=== PATIENT | female | born 1950 | race Caucasian/White ===

== ENCOUNTER → 2017-12-08 | Outpatient (CLI) | payer OTHER ==
[~2017-12-08] MED LIST: ATEN50TA8 PO; BNC40 PO; CLX20 PO; CRS10 PO; OXYC-57 PO; TRAZ100T29 PO
== END | disposition home or self-care (01) ==
LOC: C.LABSPEC 12:45
PROVIDERS: ATTEND Family Medicine
DX: M10.9 Gout, unspecified (principal)

== ENCOUNTER → 2017-12-14 | Outpatient (CLI) | payer OTHER ==
[2017-12-14 13:23] LABS: BASO % 0.4 %; BASO ABS # 0.04 K/uL (0-0.2); EOS % 3.2 %; EOS ABS # 0.34 K/uL (0-0.5); HEMATOCRIT 38.4 % (37-47); HEMOGLOBIN 12.6 g/dL (12.0-16.0); IG# 0.05 K/uL (0.00-0.02); LYMPH % 29.4 %; LYMPH ABS # 3.12 K/uL (1.2-3.4); MEAN CELL VOLUME 99.5 fL (80-100); MEAN CORPUSCULAR HEMOGLOBIN 32.6 pg (25-34); MEAN CORPUSCULAR HGB CONC 32.8 g/dl (32-36); MEAN PLATELET VOLUME 11.9 fL (7.4-10.4); MONO % 10.9 %; MONO ABS # 1.16 K/uL (0.11-0.59); NEUT % 55.6 %; NEUT ABS # 5.91 K/uL (1.4-6.5); PLATELET COUNT 237 K/uL (130-400); RED CELL DISTRIBUTION WIDTH CV 13.4 % (11.5-14.5); RED CELL DISTRIBUTION WIDTH SD 48.1 fL (36.4-46.3); WHITE BLOOD COUNT 10.62 K/uL (4.8-10.8)
[2017-12-14 13:32] LABS: ALBUMIN 3.5 gm/dl (3.4-5.0); AST/SGOT 16 U/L (15-37); BLOOD UREA NITROGEN 43 mg/dl (7-18); CALCIUM 8.8 mg/dl (8.5-10.1); CARBON DIOXIDE 27 mmol/L (21-32); CHOLESTEROL 187 mg/dl (0-200); CREATININE 1.46 mg/dl (0.60-1.20); GLUCOSE 105 mg/dl (70-99); POTASSIUM 4.6 mmol/L (3.5-5.1); SODIUM 138 mmol/L (136-145)
[2017-12-14 13:37] LABS: ALKALINE PHOSPHATASE 73 U/L (45-117); ALT/SGPT 26 U/L (12-78); LDL CHOLESTEROL CALCULATED 112 mg/dl; TOTAL PROTEIN 7.1 gm/dl (6.4-8.2)
== END | disposition home or self-care (01) ==
LOC: C.LABSPEC 13:04
PROVIDERS: ATTEND Family Medicine
DX: E78.2 Mixed hyperlipidemia (principal); M25.561 Pain in right knee

== ENCOUNTER 2018-09-15 05:20 | Inpatient (IN) ==
--- NOTE | 2018-09-13 11:25 | Anesthesiology Consultation ---
Date of Service September 13, 2018 Assessment & Plan (1) Encounter for pre-operative examination: Chart Review Chart Review: Acceptable Risk for Surgery and Patient seen in Pre Admission Testing Teaching & Discussion Instructed NPO after midnight before surgery, except medications with 15 cc of water. Medication instructions provided according to the PAT guidelines. History Surgery Operation Date: 09/15/18 07:35 Proposed Procedures p Right Carotid Endarterectomy - Lenny Joya MD Height/Weight Height: 5 ft 5 in Weight: 78.471 kg Allergies Allergy/AdvReac Type Severity Reaction Status Date / Time oxycodone AdvReac Severe syncope, Verified 09/06/18 14:14 low bp nickel AdvReac rash and Verified 09/06/18 14:14 skin turns green Medications Home Medications Medication Instructions Recorded Confirmed Last Taken trazodone 100 mg PO HS #0 09/22/11 09/06/18 05/10/18 20:00 aspirin 81 mg PO QAM #0 03/30/18 09/06/18 07/01/18 citalopram 40 mg PO HS #0 03/30/18 09/06/18 05/10/18 20:00 olmesartan 40 mg PO QAM #0 03/30/18 09/06/18 07/01/18 amlodipine 5 mg PO QAM 09/06/18 09/06/18 Unknown atorvastatin [Lipitor] 40 mg PO PM 09/06/18 09/06/18 Unknown hydrochlorothiazide 25 mg PO DAILY PRN 09/06/18 09/06/18 Unknown pantoprazole 40 mg PO QAM 09/06/18 09/06/18 Unknown Past Medical History Medical History HTN (hypertension) (Chronic) Mesenteric artery stenosis Gout (Chronic) Depression (Chronic) Chronic back pain (Chronic) Hyperlipidemia (Inactive) Hypertension (Inactive) Carotid artery stenosis Diverticular disease Past Family History Family History Mother Family history of early CAD Past Surgical History Surgical History History of arthroplasty of right knee (Chronic) History of back surgery (Chronic) History of carpal tunnel surgery (Chronic) right H/O left cataract extraction (Chronic) 9/13/18-2mg IV versed given without issues History of endoscopic sinus surgery (Chronic) History of arthroscopy (Inactive) chencho knee History of bilateral tubal ligation (Inactive) History of colonoscopy (Inactive) w/ polypectomy Past Anesthesia History No Hx of Anesthesia Complications and No Family Hx of Anesthesia Complications 2011 lumbar discectomy and fusion, MAC 3, ETT 7.0 History of PONV No Motion Sickness Screening History of Motion Sickness: Yes Social History Smoking Status: Never smoker Do You Dip or Chew Tobacco: No Hx Alcohol Use: Yes Alcohol type: wine alcohol intake frequency: holidays/special occasions only Hx Substance Use: No substance use type: does not use Exercise / Class Metabolic Activity II 4-5 Yardwork/Stairs/Walk up hill (no CP or SOB with stairs) Review of Systems Pt denies any recent chest pain, shortness of breath, palpitations, cough, fever or URI. Physical Exam Vital Signs BP: 138/56 P: 61bpm SPO2: 94% RA T: 98.3 F R: 12 ENMT Mouth: + dentures (partial upper); no chipped teeth and no loose teeth Thyromental Distance: < 3.5 Finger Breadths (3) Mallampati Class: I Neck normal visual inspection and + limited neck extension (mildly) Respiratory normal respiratory effort Auscultation: lungs clear to auscultation bilaterally Cardiovascular Rate/Rhythm: regular rate and regular rhythm Heart Sounds: no murmur Vessels: + carotid bruit (Right side) Extremities: no edema Testing Electrocardiogram Date: 09/13/18 Findings: + NSR @ (63) Chest X-Ray Date: 07/01/18 Findings: + NAD Stress Test Date: 09/08/18 Type: DSE Resting EF: 65-69% The stress echo is negative for inducible ischemia. There is no EKG or echo evidence of ischemia. No chest pain is reported with this test. 99% of age- predicted maximal target heart rate was obtained. No significant arrhythmias were noted. Normal heart rate and blood pressure response to dobutamine infusion. Occasional PACs were noted during stress. Baseline echo showed mild GA, borderline LVH and normal left ventricular cavity size and EF. Other Testing Neck CTA 09/01/18 1. Multifocal severe stenoses (up to 80%) of the proximal right internal carotid artery due to calcified and noncalcified atherosclerotic plaque, as detailed above. 2. Moderate plaque within the left internal carotid artery without significant stenosis. 3. Dominant, patent left vertebral artery. Diminutive right vertebral artery likely on a congenital basis. Laboratory Results Laboratory Tests 09/13/18 09/13/18 09/13/18 11:16 11:16 11:16 WBC 6.70 Hgb 10.9 L Hct 33.9 L Plt Count 275 PT 10.7 INR 1.1 APTT 25.4 Sodium 138 Potassium 4.3 Chloride 105 Carbon Dioxide 27 BUN 33 H Creatinine 1.08 Glucose 87
[2018-09-15] MEDS ORDERED: LR 15ML/HR IV SCH ×2 (06:00)
[2018-09-15] MEDS ORDERED: CEFAZOLIN 1000MG 1,000 MG/7.5 ML SYR IV SCH (06:00)
--- NOTE | 2018-09-15 06:02 | History & Physical Report ---
Date of Service September 15, 2018 Assessment & Plan (1) Right-sided extracranial carotid artery stenosis: Patient is admitted for a right CEA. I have discussed the risks options and benefits of the procedure with the patient. The patient understands the risks options and benefits and agrees to the procedure. History of Present Illness Chief Complaint: Right carotid stenosis Primary Care Provider: Karl Howe Ms. Radha Hare, is a 67-year-old female who recently required evaluation at [facility] for severe vertigo symptoms. This occurred in mid- July and per her report included an MRI that did not show any evidence of a stroke, but a carotid duplex that was performed at that time showed a 70-99% stenosis of her left internal carotid and a critical stenosis on the right internal carotid artery. As previously stated, her primary symptoms consist of vertigo which does occur even when she is lying in bed, not necessarily with activity. She will occasionally get symptoms of dysphagia, but it sounds to be more consistent with a globus sensation as it is intermittent and resolves immediately rather than true dysphagia. She denies any symptoms of transient monocular blindness, unilateral weakness or numbness, or any dysarthria. The stenosis of her right carotid was confirmed by CTA. Allergies Allergy/AdvReac Type Severity Reaction Status Date / Time oxycodone AdvReac Severe syncope, Verified 09/15/18 05:43 low bp nickel AdvReac rash and Verified 09/15/18 05:43 skin turns green Home Medications Home Medications Medication Instructions Recorded Confirmed Type trazodone 100 mg PO HS #0 09/22/11 09/15/18 History aspirin 81 mg PO QAM #0 03/30/18 09/15/18 History citalopram 40 mg PO HS #0 03/30/18 09/15/18 History olmesartan 40 mg PO QAM #0 03/30/18 09/15/18 History amlodipine 5 mg PO QAM 09/06/18 09/15/18 History atorvastatin [Lipitor] 40 mg PO PM 09/06/18 09/15/18 History hydrochlorothiazide 25 mg PO DAILY PRN 09/06/18 09/15/18 History pantoprazole 40 mg PO QAM 09/06/18 09/15/18 History Past Med/Surg History Medical History HTN (hypertension) (Chronic) Mesenteric artery stenosis Gout (Chronic) Depression (Chronic) Chronic back pain (Chronic) Hyperlipidemia (Inactive) Hypertension (Inactive) Carotid artery stenosis Diverticular disease Neck pain Surgical History History of arthroplasty of right knee (Chronic) History of back surgery (Chronic) History of carpal tunnel surgery (Chronic) right H/O left cataract extraction (Chronic) 04/29/18-2mg IV versed given without issues History of endoscopic sinus surgery (Chronic) History of arthroscopy (Inactive) chencho knee History of bilateral tubal ligation (Inactive) History of colonoscopy (Inactive) w/ polypectomy Family History Mother Family history of early CAD Social History Current Living Situation: Spouse Other Information That Helps Us Care for You: No Feels Safe at Home: Yes Smoking Status: Never smoker Do You Dip or Chew Tobacco: No Hx Alcohol Use: Yes Alcohol type: wine Alcohol Intake Frequency: holidays/ special occasions only Hx Substance Use: No Beliefs That Will Affect Care: None Preferred Language: Mohawk Communication Ability: Effective Review of Systems All systems reviewed & are unremarkable except as noted in HPI & below Physical Exam 2 Vital Signs (Past 24 Hours): She is a healthy-appearing middle-aged female in no acute distress. Her right arm blood pressure is 170/52, and her left arm blood pressure is 160/60. Her sclerae are anicteric, and her mucous membranes are moist. Her neck is supple, with palpable carotid pulses bilaterally and bruit auscultated bilaterally, greater on the right side. Her heart is regular rate and rhythm with no murmurs appreciated. Her lungs are clear to auscultation bilaterally. Her abdomen is soft, nontender, and nondistended. Her extremities are warm, well perfused with 2+ radial and 1+ DP pulses bilaterally. She has no focal neurologic deficits currently.
[2018-09-15] MEDS ORDERED: CISATRACURIUM BESYLATE IV SOLN 2 MG/ML 10 ML VIAL IV ONE (06:36)
[2018-09-15] MEDS ORDERED: NITROGLYCERIN 5 MG/ML 10 ML VIAL ONE (06:37)
[2018-09-15] MEDS ORDERED: GELATIN SPONGE SZ 100 ONE (06:48)
[2018-09-15] MEDS ORDERED: CEFAZOLIN 250 MG/ML 1 GM VIAL ONE (06:48)
[2018-09-15] MEDS ORDERED: HEPARIN (PORCINE) 1000 UNIT/ML 10 ML (CATH LAB USE ONLY) ONE (06:48)
[2018-09-15] MEDS ORDERED: BUPIVACAINE/EPINEPHRINE 0.5% MPF 1:200,000 30 ML VIAL ONE (06:48)
[2018-09-15] MEDS ORDERED: THROMBIN FOR SOLN 20000 UNIT KIT ONE (06:49)
[2018-09-15] MEDS ORDERED: MIDAZOLAM HCL 1 MG/ML 2ML VIAL ONE (07:02)
[2018-09-15] MEDS ORDERED: fentaNYL citrate 100 MCG/2 ML VIAL ONE (07:02)
[2018-09-15] MEDS ORDERED: LIDOCAINE HCL 2% 2 ML VIAL/AMP(20MG/ML) INFIL ONE (07:02)
[2018-09-15] MEDS ORDERED: PROPOFOL IV EMULSION 10 MG/ML 20 ML VIAL IV ONE (07:02)
--- NOTE | 2018-09-15 07:11 | History & Physical Bridge Note ---
Date of Service September 15, 2018 History & Physical Bridge Note I have examined the patient, reviewed the History & Physical and in the interval since the performance of the History & Physical I have noted the following changes of clinical significance: no changes noted
[2018-09-15] MEDS ORDERED: PHENYLEPHRINE HCL 10 MG/ML VIAL ONE (09:06)
[2018-09-15] MEDS ORDERED: DEXAMETHASONE SOD INJ 4 MG/ML VIAL ONE (09:06)
[2018-09-15] MEDS ORDERED: ONDANSETRON INJ 2 MG/ML 2 ML VIAL ONE (09:06)
--- NOTE | 2018-09-15 09:49 | Post Operative Brief Note ---
Immediate Post Op Note v1 Date of Surgery September 15, 2018 Pre & Post Diagnosis Operation Date: 09/15/18 07:30 Pre-Op Diagnosis: Right Internal Carotid Artery Stenosis Post-Op Diagnosis: Right Internal Carotid Artery Stenosis Procedure Operation Date: 09/15/18 07:30 Actual Procedures p Right Carotid Endarterectomy(Right) - Lenny Joya MD Surgeon Lenny Joya MD Customer Development Manager Gunjan Zamorano MD L Minarchick,PAC Estimated Blood Loss 50 Findings Consistent with Post-Op Diagnosis Anesthesia Type General Complications none Disposition Accompanied Patient To Recovery: No Disposition: Recovery Room
[2018-09-15] MEDS: LIDOCAINE HCL 1% 20 ML VIAL ONE ×2 (10:06→12:35)
[2018-09-15] MEDS ORDERED: LABETALOL HCL IV 5 MG/ML 20ML IV ONE (10:44)
[2018-09-15] MEDS ORDERED: NALOXONE HCL 0.4 MG/1 ML VIAL/CARP IV PRN (11:06)
[2018-09-15] MEDS ORDERED: fentaNYL citrate 100 MCG/2 ML VIAL IV PRN (11:06)
[2018-09-15] MEDS ORDERED: FLUMAZENIL 0.1 MG/1 ML 10 ML VIAL IV PRN (11:06)
[2018-09-15] MEDS ORDERED: PROMETHAZINE HCL 12.5 MG in SODIUM CHLORIDE 0.9% 50 ML IV PRN (11:06)
[2018-09-15] MEDS ORDERED: ATROPINE SULFATE 0.1 MG/ML 10ML SYR IV PRN (11:06)
[2018-09-15] MEDS ORDERED: LABETALOL HCL IV 5 MG/ML 20ML IV PRN (11:06)
[2018-09-15] MEDS ORDERED: ePHEDrine sulfate 50 MG/ML AMP IV PRN (11:06)
[2018-09-15] MEDS ORDERED: ONDANSETRON INJ 2 MG/ML 2 ML VIAL IV PRN (11:06)
--- NOTE | 2018-09-15 11:09 | Anesthesiology Progress Note ---
Date of Service September 15, 2018 Anesthesia Post Procedure Vital Signs Vital Signs: Temp Pulse Pulse Resp BP Pulse Ox 09/15/18 11:05 36.4 C L 61 18 131/47 L 96 09/15/18 10:55 62 20 135/48 L 98 09/15/18 10:45 63 17 131/48 L 99 09/15/18 10:36 36.2 C L 63 23 137/45 L 95 09/15/18 05:59 37.0 C 73 18 165/53 H 96 Notes Mental Status: alert / awake / arousable Patient Amnestic to Procedure: Yes Nausea / Vomiting: adequately controlled Pain: adequately controlled Airway Patency, RR, SpO2: stable & adequate BP & HR: stable & adequate Hydration State: stable & adequate Anesthetic Complications: no major complications apparent Notes: patient is neurologically intact
[2018-09-15] MEDS ORDERED: hydroCHLOROthiazide 25 MG TAB PO PRN (11:57)
[2018-09-15] MEDS ORDERED: MoRPHine SULFATE 4 MG/ML 1 ML CARP\\VIAL IV PRN (11:57)
[2018-09-15] MEDS ORDERED: D5W AND 1/2NSS 1,000 ML IV SCH (12:20)
[2018-09-15] MEDS ORDERED: AMLODIPINE BESYLATE 5 MG TAB PO ONE (12:30)
[2018-09-15] MEDS ORDERED: MoRPHine SULFATE 4 MG/ML 1 ML CARP\\VIAL ONE (12:31)
[2018-09-15] MEDS ORDERED: MoRPHine SULFATE 2 MG/ML CARP IV STA (12:32)
--- NOTE | 2018-09-15 12:47 | Operative Report ---
Post Operative Report Pre & Post Diagnosis Operation Date: 09/15/18 07:30 Pre-Op Diagnosis: Right Internal Carotid Artery Stenosis Post-Op Diagnosis: Right Internal Carotid Artery Stenosis Procedure Operation Date: 09/15/18 07:30 Actual Procedures p Right Carotid Endarterectomy(Right) - Lenny Joya MD Surgeon Lenny Joya MD Snow Plow Operator Gunjan Zamorano MD L Minarchick,PAC Estimated Blood Loss 50 Findings Consistent with Post-Op Diagnosis Specimens Carotid plaque Anesthesia Type General Complications none Disposition Accompanied Patient To Recovery: No Disposition: Surgical ICU Indications 67-year-old female with previous symptoms of vertigo requiring admission to the hospital, found to have critical stenosis of the right internal carotid artery and 70-99% stenosis of the left internal carotid artery. She presented to the hospital for elective right carotid endarterectomy. Description of Procedure Patient was brought to the operating room and identified as Radha Hare. She was transferred to the operating table in the supine position. General anesthesia was induced and she was endotracheally intubated. A shoulder roll was placed in her neck was extended to the left. Her right neck was prepped with ChloraPrep and draped in the usual sterile fashion. An oblique incision was made along the anterior border of the sternocleidomastoid. The platysma was identified and similarly divided along the incision. At this point the facial vein was noted to be crossing the area of the carotid and was divided with 3-0 silk. The common carotid artery and bulb were identified and dissected out using Metzenbaum scissors. The external carotid was identified and doubly encircled with a vessel loop. Dissection was carried down proximally onto the common carotid artery as well as distally onto the internal carotid artery. Significant plaque was noted in the internal and common carotid arteries upon palpation, however a soft endpoint was noted distally in the internal carotid artery and no additional maneuvers to extend exposure were required. Both the vagus nerve and the hypoglossal nerves were identified and preserved. DeBakey clamps were then used to clamp the internal carotid artery at the distal most extent and the common carotid artery at the proximal most extent. A small arteriotomy was made in the anterior aspect of the common carotid artery with an 11 blade. This was extended proximally and distally with Rowe scissors. A shunt was then inserted proximally and held in place using a Ivan clamp with good black bleeding noted from the internal carotid. The remaining ends of the shunt was then inserted into common carotid artery and similarly held in place with a Ivan clamp. We then proceeded with endarterectomy using Kolby forceps and spatula to dissect within the medial layer pulling the plaque away from the artery. Rowe scissors were used to complete the endarterectomy more proximally. In the more distal aspect of the internal carotid artery the endarterectomy was completed carefully in order to minimize dissection flaps. A small dissection flap of intima was noted and was tacked down in 2 places with 7-0 Prolene. The remaining plaque was pulled out of the external carotid artery without issue. A bovine pericardial patch was then selected and trimmed to size. Patch angioplasty was then performed in a heel-to-toe fashion using running 6-0 Prolene sutures. When approximately 3-4 stitches remained, the shunt was removed and DeBakey clamps were used to exclude flow into the anastomosis after it was backbled sufficiently. The suture was tied and there was not any significant bleeding from the angioplasty site, but spray thrombin and thrombin soaked pads were temporarily placed in the wound to ensure hemostasis. A palpable pulse was noted in the distal ICA after the repair. After hemostasis was ensured, the platysma was closed with running 3-0 Vicryl suture and the skin was closed with running 4-0 Vicryl suture in a subcuticular fashion. Dermabond was applied to the wound. The patient tolerated the procedure well and was extubated without difficulty and moved both sides of her body at the end of the case to command. Tongue was midline at the end of the case. At the end of the case, all counts were correct. Dr. Joya was present and scrubbed for the entire procedure. I attest to the content of the Intraoperative Record and any orders documented therein. Any exceptions are noted below.
[2018-09-15] MEDS: HYDROCODONE/ACETAMOPHEN 5/325MG TAB PO PRN ×2 (14:38→20:19)
--- NOTE | 2018-09-15 14:44 | Critical Care Consultation ---
Date of Consultation September 15, 2018 Assessment & Plan (1) Right-sided extracranial carotid artery stenosis: 67-year-old female was admitted to the ICU on 15 September 2018 following her right internal carotid endarterectomy earlier this same date. 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 Recently evaluated for vertigo symptoms but denies any at present. PMH depression and prior back surgery. Is on Celexa and trazodone. Has hydrocodone and morphine, both as needed, for postop pain. Pulm: No known acute issues. CVS: S/p right internal carotid endarterectomy. Management per vascular surgery , see related notes. PMH HTN, HLD, CAD. Is on Lipitor, aspirin, Norvasc, olmesartan. ID: Pre-op normal WBC. Presently afebrile. On perioperative Ancef. Endo: No known diabetes or thyroid issues. Renal/Lytes: Pre-op Cr 1.08, normal electrolytes. GI: No current symptoms or acute concerns. Reported occasional dysphasia symptoms. Is on Protonix. PMH diverticular disease. Heart healthy diet. Heme: Pre-op Hb 10.9. Monitoring. DVT prophy: Activity ad gabrielle. Lines: PIV. Code status: Full code PT/OT: Deferred. Disposition: Admitted to ICU in the postoperative period. (2) Insomnia: (3) Depression: (4) History of back surgery: (5) HTN (hypertension): (6) Hyperlipidemia: (7) Coronary artery disease: (8) Diverticular disease: (9) Anemia: Supervising Physician Co-Signing Physician Notes Dr. Castrejon was resident physician during care of patient. I separately evaluated patient for yarbrough portions of the history and the exam. I was present during the critical portion of medical decision making, and I discussed the case with the resident. I generally agree with the findings and plan. Patient tolerating p.o. and is asymptomatic at this time anticipate routine postoperative course History of Present Illness Attending Physician: Lenny Joya MD History of Present Illness 67-year-old female was admitted to the ICU following her right internal carotid endarterectomy earlier this morning. Patient states her carotid stenosis was discovered as part of an ongoing evaluation for vertigo and then follow on MRI. Upon meeting the patient in the ICU postop, she says that she has some right neck discomfort that has responded well to morphine thus far. She denies any present vertiginous symptoms. She notes some recent right lower quadrant abdominal symptoms, possibly related to diverticular disease, that is presently resolved as well. Denies any acute difficulty speaking, swallowing, or noted severe pain with moving her neck. She has no particular acute concerns. Allergies Allergy/AdvReac Type Severity Reaction Status Date / Time oxycodone AdvReac Severe syncope, Verified 09/15/18 05:43 low bp nickel AdvReac rash and Verified 09/15/18 05:43 skin turns green Home Medications Home Medications Medication Instructions Recorded Confirmed Type trazodone 100 mg PO HS #0 09/22/11 09/15/18 History aspirin 81 mg PO QAM #0 03/30/18 09/15/18 History citalopram 40 mg PO HS #0 03/30/18 09/15/18 History olmesartan 40 mg PO QAM #0 03/30/18 09/15/18 History amlodipine 5 mg PO QAM 09/06/18 09/15/18 History atorvastatin [Lipitor] 40 mg PO PM 09/06/18 09/15/18 History hydrochlorothiazide 25 mg PO DAILY PRN 09/06/18 09/15/18 History pantoprazole 40 mg PO QAM 09/06/18 09/15/18 History Patient History Medical History HTN (hypertension) (Chronic) Mesenteric artery stenosis Gout (Chronic) Depression (Chronic) Chronic back pain (Chronic) Hyperlipidemia (Inactive) Hypertension (Inactive) Carotid artery stenosis Diverticular disease Neck pain Surgical History History of arthroplasty of right knee (Chronic) History of back surgery (Chronic) History of carpal tunnel surgery (Chronic) right H/O left cataract extraction (Chronic) 04/29/18-2mg IV versed given without issues History of endoscopic sinus surgery (Chronic) History of arthroscopy (Inactive) chencho knee History of bilateral tubal ligation (Inactive) History of colonoscopy (Inactive) w/ polypectomy Family History Mother Family history of early CAD Social History Current Living Situation: Spouse Other Information That Helps Us Care for You: No Feels Safe at Home: Yes Smoking Status: Never smoker Do You Dip or Chew Tobacco: No Hx Alcohol Use: Yes Alcohol type: wine Alcohol Intake Frequency: holidays/ special occasions only Hx Substance Use: No Beliefs That Will Affect Care: None Preferred Language: Surinamese Communication Ability: Effective Review of Systems Constitutional: Denies fevers, chills, focal weakness Eyes: Denies any visual loss or diplopia ENT: Denies any ear/nose/throat pain or difficulty speaking or swallowing Respiratory: Denies any dyspnea, cough, hemoptysis Cardiovascular: Denies any chest pain or feeling of edema Gastrointestinal: Denies any abdominal pain, nausea/vomiting/diarrhea Musculoskeletal: Denies any acute extremity pains, myalgias, or focal weakness Skin: Denies any known acute rashes or lesions Neuro: Denies any headache, acute focal weakness or numbness, or difficulties with speech or swallow. Psych: Denies any recent depression or anxiety Physical Exam 2 Vital Signs (Past 24 Hours): Last Vital Signs Temp 36.4 C L 09/15/18 11:05 Pulse 64 09/15/18 14:20 Resp 14 09/15/18 14:20 BP 145/47 H 09/15/18 14:16 Pulse Ox 96 09/15/18 14:20 Physical Exam: General Appearance: Awake, alert & oriented, comfortable in general, NAD. CV: +S1S2 RRR, no murmur. Right neck has some mild swelling along the incision line. Pulm: Clear to auscultation throughout. Abdomen: +BS, soft, non-tender, non-distended. Extremities: No pedal edema or calf tenderness. Moving all extremities naturally and easily. Neuro: No gross neuro deficits. Results & Data Laboratory Results 09/15/18 09/15/18 Range/Units 13:22 05:51 POC Glucose 141 H (70-99) Blood Type A Positive Antibody Screen NEGATIVE Medications Administered Current Inpatient Medications Hydrocodone Bitart/Acetaminophen ([place] 5/325) 1 - 2 tab PO Q4H PRN PRN Reason: Moderate Pain Stop: 09/29/18 11:56 Last Admin: 09/15/18 14:38 Dose: 1 tab Amlodipine Besylate (Norvasc) 5 mg PO QAM [facility] Stop: 10/16/18 08:59 Aspirin (Ecotrin Ectab) 81 mg PO QAM [facility] Stop: 10/16/18 08:59 Atorvastatin Calcium (Lipitor) 40 mg PO PM [facility] Stop: 10/15/18 20:59 Citalopram Hydrobromide (Celexa) 40 mg PO HS [facility] Stop: 10/15/18 20:59 Hydrochlorothiazide (Hctz) 25 mg PO DAILY PRN PRN Reason: Hypertension Stop: 10/15/18 11:56 Cefazolin Sodium (Ancef 1000mg) 1,000 mg in 7.5 mls @ 2.5 mls/min IV PREOP [facility] ; Protocol Stop: 09/15/18 18:00 Last Admin: 09/15/18 07:35 Dose: 2.5 mls/min Lactated Ringer's (Lr) 1,000 mls @ 80 mls/hr IV .[id number] [facility] Stop: 09/15/18 18:29 Last Admin: 09/15/18 12:34 Dose: 80 mls/hr Cefazolin Sodium (Ancef 2000mg) 2,000 mg in 15 mls @ 3.75 mls/min IV Q8H [facility]; Protocol Stop: 09/16/18 00:03 Morphine Sulfate (Morphine Sulfate) 1 - 4 mg IV Q2H PRN PRN Reason: Severe Pain Stop: 09/29/18 11:56 Last Admin: 09/15/18 14:39 Dose: 2 mg Olmesartan (Benicar) 40 mg PO QAM [facility] Stop: 10/16/18 08:59 Pantoprazole Sodium (Protonix) 40 mg PO QAM [facility] Stop: 10/16/18 08:59 Trazodone HCl (Desyrel) 100 mg PO [facility] Stop: 10/15/18 20:59 Resident Activity Tracking Resident Involvement: Resident Care Provided Care Provided: [facility] Medicine _ (1) HTN (hypertension) Hypertension type: unspecified Qualified Code(s): I10 - Essential (primary) hypertension
[2018-09-15] MEDS: CEFAZOLIN 2000MG 2,000 MG/15 ML SYR IV SCH ×2 (17:11→23:55)
[2018-09-15] MEDS ORDERED: ATORVASTATIN 40 MG TAB PO SCH (21:00)
[2018-09-15] MEDS ORDERED: TRAZODONE HCL 100 MG TAB PO SCH (21:00)
[2018-09-15] MEDS ORDERED: CITALOPRAM 40 MG TAB PO SCH (21:00)
[2018-09-16 04:46] LABS: Hematocrit (blood only) 29.5 % (37-47); Hemoglobin 9.5 g/dL (12.0-16.0); Immature Granulocytes # (auto) 0.03 K/uL (0.00-0.02); Immature Granulocytes % (auto) 0.3 %; Lymphocytes # (auto) 0.87 K/uL (1.2-3.4); Lymphocytes % (auto) 8.5 %; Mean Corpuscular Hgb Conc 32.2 g/dL (32-36); Mean Corpuscular Volume 99.7 fL (80-100); Mean Platelet Volume 10.7 fL (7.4-10.4); Monocytes # (auto) 0.66 K/uL (0.11-0.59); Monocytes % (auto) 6.5 %; Neutrophils # (auto) 8.66 K/uL (1.4-6.5); Neutrophils % (auto) 84.7 %; Platelet Count 239 K/uL (130-400); RDW Standard Deviation 50.6 fL (36.4-46.3); Red Blood Count 2.96 M/uL (4.2-5.4); White Blood Count 10.22 K/uL (4.8-10.8)
[2018-09-16 05:07] LABS: BUN Creatinine Ratio 23.3 (10-20); Calcium 8.6 mg/dl (8.5-10.1); Creatinine Clr Calc Pharmacy 55.2 ml/min; Est GFR (African American) 65.5; Est GFR (Non-African American) 56.5; Magnesium 2.2 mg/dl (1.8-2.4); Phosphorus 3.9 mg/dl (2.5-4.9); Potassium 4.5 mmol/L (3.5-5.1)
[2018-09-16] MEDS: HYDROCODONE/ACETAMOPHEN 5/325MG TAB PO PRN ×2 (07:37→12:35)
--- NOTE | 2018-09-16 08:27 | Critical Care Progress Note ---
Date of Service September 16, 2018 Assessment & Plan (1) Right-sided extracranial carotid artery stenosis: 67-year-old female was admitted to the ICU on 15 September 2018 following her right internal carotid endarterectomy earlier this same date. 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 Recently evaluated for vertigo symptoms but denies any at present. PMH depression, insomnia, and prior back surgery. Is on Celexa and trazodone. Has hydrocodone and morphine, both as needed, for postop pain ( minimal needed thus far). Pulm: No known acute issues. CVS: S/p right internal carotid endarterectomy. Management per vascular surgery , see related notes. PMH HTN, HLD, CAD. Is on Lipitor, aspirin, Norvasc, olmesartan. ID: Normal WBC. Presently afebrile. Endo: No known diabetes or thyroid issues. Renal/Lytes: Pre-op Cr 1.08, similar. Normal electrolytes. GI: No current symptoms or acute concerns. Reported occasional dysphasia symptoms. Is on Protonix. PMH diverticular disease. Heart healthy diet. Heme: Pre-op Hb 10.9, post-op 9.5. Monitoring. DVT prophy: Activity ad gabrielle. Lines: PIV. Code status: Full code PT/OT: Deferred. Disposition: Admitted to ICU in the postoperative period. Likely DC home today per vascular surgery. (2) Insomnia: (3) Depression: (4) History of back surgery: (5) HTN (hypertension): (6) Hyperlipidemia: (7) Coronary artery disease: (8) Diverticular disease: (9) Anemia: Supervising Physician Co-Signing Physician Notes Dr. Castrejon was resident physician during care of patient. I separately evaluated patient for yarbrough portions of the history and the exam. I was present during the critical portion of medical decision making, and I discussed the case with the resident. I generally agree with the findings and plan. Doing well postoperatively likely able to be discharged today disposition per vascular surgery. Subjective Found patient sitting up in bed, eating her breakfast. She says that the right side of her neck feels a little sore but otherwise she is doing quite well. She has no particular acute concerns. Physical Exam 2 Vital Signs (Past 24 Hours): Last Vital Signs Temp 36.4 C L 09/16/18 04:00 Pulse 64 09/16/18 06:00 Resp 14 09/16/18 06:00 BP 136/46 L 09/16/18 06:00 Pulse Ox 96 09/16/18 06:00 Physical Exam: General Appearance: Awake, alert & oriented, comfortable in general, NAD. CV: +S1S2 RRR, no murmur. Right neck has some mild swelling along the incision line, unchanged from yesterday. Pulm: Clear to auscultation throughout. Abdomen: +BS, soft, non-tender, non-distended. Extremities: No pedal edema or calf tenderness. Moving all extremities naturally and easily. Neuro: No gross neuro deficits. Results & Data Laboratory Results 09/16/18 09/16/18 09/16/18 Range/Units 04:21 03:59 03:59 WBC 10.22 (4.8-10.8) K/uL RBC 2.96 L (4.2-5.4) M/uL Hgb 9.5 L (12.0-16.0) g/dL Hct 29.5 L (37-47) % MCV 99.7 (80-100) fL MCH 32.1 (25-34) pg MCHC 32.2 (32-36) g/dL RDW Std Deviation 50.6 H (36.4-46.3) fL RDW Coeff of Geeta 14.0 (11.5-14.5) % Plt Count 239 (130-400) K/uL MPV 10.7 H (7.4-10.4) fL Immature Gran % (Auto) 0.3 % Neut % (Auto) 84.7 % Lymph % (Auto) 8.5 % Alpine % (Auto) 6.5 % Eos % (Auto) 0.0 % Baso % (Auto) 0.0 % Immature Gran # (Auto) 0.03 H (0.00-0.02) K/uL Neut # (Auto) 8.66 H (1.4-6.5) K/uL Lymph # (Auto) 0.87 L (1.2-3.4) K/uL Alpine # (Auto) 0.66 H (0.11-0.59) K/uL Eos # (Auto) 0.00 (0-0.5) K/uL Baso # (Auto) 0.00 (0-0.2) K/uL Sodium 138 (136-145) mmol/L Potassium 4.5 (3.5-5.1) mmol/L Chloride 106 (98-107) mmol/L Carbon Dioxide 27 (21-32) mmol/L Anion Gap 5.0 (3-11) BUN 24 H (7-18) mg/dl Creatinine 1.02 (0.6-1.2) mg/dl Est Cr Clr Drug Dosing 55.2 ml/min Est GFR ( Amer) 65.5 Est GFR (Non-Af Amer) 56.5 BUN/Creatinine Ratio 23.3 H (10-20) Glucose 119 H (70-99) mg/dl POC Glucose 133 H (70-99) Calcium 8.6 (8.5-10.1) mg/dl Phosphorus 3.9 (2.5-4.9) mg/dl Magnesium 2.2 (1.8-2.4) mg/dl Nasal Screen MRSA (PCR) (Negative) 09/15/18 09/15/18 09/15/18 Range/Units Unknown 18:04 13:22 WBC (4.8-10.8) K/uL RBC (4.2-5.4) M/uL Hgb (12.0-16.0) g/dL Hct (37-47) % MCV (80-100) fL MCH (25-34) pg MCHC (32-36) g/dL RDW Std Deviation (36.4-46.3) fL RDW Coeff of Geeta (11.5-14.5) % Plt Count (130-400) K/uL MPV (7.4-10.4) fL Immature Gran % (Auto) % Neut % (Auto) % Lymph % (Auto) % Alpine % (Auto) % Eos % (Auto) % Baso % (Auto) % Immature Gran # (Auto) (0.00-0.02) K/uL Neut # (Auto) (1.4-6.5) K/uL Lymph # (Auto) (1.2-3.4) K/uL Alpine # (Auto) (0.11-0.59) K/uL Eos # (Auto) (0-0.5) K/uL Baso # (Auto) (0-0.2) K/uL Sodium (136-145) mmol/L Potassium (3.5-5.1) mmol/L Chloride (98-107) mmol/L Carbon Dioxide (21-32) mmol/L Anion Gap (3-11) BUN (7-18) mg/dl Creatinine (0.6-1.2) mg/dl Est Cr Clr Drug Dosing ml/min Est GFR ( Amer) Est GFR (Non-Af Amer) BUN/Creatinine Ratio (10-20) Glucose (70-99) mg/dl POC Glucose 186 H 141 H (70-99) Calcium (8.5-10.1) mg/dl Phosphorus (2.5-4.9) mg/dl Magnesium (1.8-2.4) mg/dl Nasal Screen MRSA (PCR) Negative (Negative) Medications Administered Current Inpatient Medications Hydrocodone Bitart/Acetaminophen ([place] 5/325) 1 - 2 tab PO Q4H PRN PRN Reason: Moderate Pain Stop: 09/29/18 11:56 Last Admin: 09/16/18 07:37 Dose: 2 tab [facility] Stop: 10/16/18 08:59 Last Admin: 09/16/18 07:37 Dose: 5 mg Aspirin (Ecotrin Ectab) [facility] Stop: 10/16/18 08:59 Last Admin: 09/16/18 07:30 Dose: 81 mg Atorvastatin Calcium (Lipitor) 40 mg PO PM [facility] Stop: 10/15/18 20:59 Last Admin: 09/15/18 20:19 Dose: 40 mg Citalopram Hydrobromide (Celexa) 40 mg PO HS [facility] Stop: 10/15/18 20:59 Last Admin: 09/15/18 20:19 Dose: 40 mg Hydrochlorothiazide (Hctz) 25 mg PO DAILY PRN PRN Reason: Hypertension Stop: 10/15/18 11:56 Morphine Sulfate (Morphine Sulfate) 1 - 4 mg IV Q2H PRN PRN Reason: Severe Pain Stop: 09/29/18 11:56 Last Admin: 09/15/18 14:39 Dose: 2 mg Olmesartan (Benicar) [facility] Stop: 10/16/18 08:59 Last Admin: 09/16/18 07:30 Dose: 40 mg Pantoprazole Sodium (Protonix) 40 mg PO QAM [facility] Stop: 10/16/18 08:59 Last Admin: 09/16/18 07:30 Dose: 40 mg Trazodone HCl (Desyrel) 100 mg PO HS [facility] Stop: 10/15/18 20:59 Last Admin: 09/15/18 20:19 Dose: 100 mg Resident Activity Tracking Resident Involvement: Resident Care Provided Care Provided: Adult [facility] Medicine _ (1) HTN (hypertension) Hypertension type: unspecified Qualified Code(s): I10 - Essential (primary) hypertension
[2018-09-16] MEDS ORDERED: PANTOprazole 40 MG TAB PO SCH (09:00)
[2018-09-16] MEDS ORDERED: OLMESARTAN MEDOXOMIL 40 MG TAB PO SCH (09:00)
[2018-09-16] MEDS ORDERED: ASPIRIN 81 MG ECTAB PO SCH (09:00)
[2018-09-16] MEDS ORDERED: AMLODIPINE BESYLATE 5 MG TAB PO SCH ×2 (09:00)
--- NOTE | 2018-09-16 09:09 | Anesthesiology Progress Note ---
Date of Service September 16, 2018 Anesthesia Post Procedure Vital Signs Vital Signs: Temp Pulse Pulse Resp BP BP Pulse Ox 09/16/18 08:00 36.9 C 70 21 129/42 L 95 09/16/18 07:00 66 15 131/59 L 94 09/16/18 06:00 64 14 136/46 L 96 09/16/18 05:00 65 16 122/45 L 94 09/16/18 04:00 36.4 C L 65 17 147/53 H 94 09/16/18 03:00 66 16 133/41 L 93 09/16/18 02:00 64 15 123/44 L 94 09/16/18 01:00 64 18 125/60 92 09/16/18 00:00 36.4 C L 69 69 18 149/53 H 95 09/15/18 23:00 68 20 124/42 L 93 09/15/18 22:00 62 18 130/41 L 95 09/15/18 21:00 65 23 132/45 L 94 09/15/18 20:00 36.8 C 65 20 140/62 95 09/15/18 18:50 68 18 93 09/15/18 18:45 81 17 129/42 L 91 09/15/18 18:40 63 15 96 09/15/18 18:30 70 22 129/43 L 91 09/15/18 18:20 67 18 92 09/15/18 18:15 68 18 123/45 L 91 09/15/18 18:10 67 17 93 09/15/18 18:00 69 21 132/41 L 93 09/15/18 17:50 66 18 96 09/15/18 17:45 82 20 127/44 L 92 09/15/18 17:40 70 23 97 09/15/18 17:30 69 19 127/39 L 95 09/15/18 17:20 73 22 91 09/15/18 17:16 76 18 135/40 L 89 L 09/15/18 17:10 92 H 18 84 L 09/15/18 17:00 78 19 134/42 L 89 L 09/15/18 16:50 74 15 95 09/15/18 16:46 78 21 123/38 L 88 L 09/15/18 16:40 77 22 95 09/15/18 16:32 74 20 98 09/15/18 16:31 72 20 124/48 L 94 09/15/18 16:30 68 21 09/15/18 16:20 62 15 97 09/15/18 16:15 76 20 131/46 L 90 09/15/18 16:10 69 22 94 09/15/18 16:00 81 21 127/47 L 90 09/15/18 15:53 66 18 135/47 L 95 09/15/18 15:50 71 17 93 09/15/18 15:46 67 14 135/47 L 92 09/15/18 15:40 64 18 97 09/15/18 15:31 73 18 139/40 L 94 09/15/18 15:30 73 20 92 09/15/18 15:20 69 21 95 09/15/18 15:16 70 19 127/45 L 94 09/15/18 15:10 73 18 92 09/15/18 15:01 67 16 128/46 L 97 09/15/18 15:00 76 16 94 09/15/18 14:50 65 19 96 09/15/18 14:46 71 27 H 130/65 98 09/15/18 14:40 69 21 97 09/15/18 14:31 68 14 134/67 94 09/15/18 14:30 67 20 97 09/15/18 14:20 64 14 96 09/15/18 14:16 72 14 145/47 H 94 09/15/18 14:10 74 15 94 09/15/18 14:02 78 17 136/43 L 95 09/15/18 14:00 73 22 94 09/15/18 13:50 74 18 95 09/15/18 13:46 69 14 152/48 H 96 09/15/18 13:40 75 20 97 09/15/18 13:31 73 16 139/50 L 95 09/15/18 13:30 76 16 99 09/15/18 13:20 67 18 95 09/15/18 13:16 64 18 145/52 H 99 09/15/18 13:10 68 16 97 09/15/18 13:02 68 26 H 99 09/15/18 13:01 67 25 H 140/54 L 97 09/15/18 13:00 67 22 99 09/15/18 12:46 62 24 132/49 L 99 09/15/18 12:45 71 19 98 09/15/18 12:31 67 19 141/49 H 96 09/15/18 12:30 71 19 98 09/15/18 12:17 67 23 139/56 L 98 09/15/18 12:15 70 17 97 09/15/18 12:04 64 22 93 09/15/18 12:01 65 14 132/47 L 96 09/15/18 11:15 59 L 18 139/47 L 99 09/15/18 11:05 36.4 C L 61 18 131/47 L 96 09/15/18 10:55 62 20 135/48 L 98 09/15/18 10:45 63 17 131/48 L 99 09/15/18 10:36 36.2 C L 63 23 137/45 L 95 Pain Intensity Right Neck: Pain Intensity: 6 Notes Mental Status: alert / awake / arousable and participated in evaluation Patient Amnestic to Procedure: Yes Nausea / Vomiting: see Notes below Pain: adequately controlled Airway Patency, RR, SpO2: stable & adequate BP & HR: stable & adequate Hydration State: stable & adequate Anesthetic Complications: no major complications apparent and Pt Satisfied with anesthetic care
--- NOTE | 2018-09-16 13:14 | Surgery Progress Note ---
Date of Service September 16, 2018 Assessment & Plan (1) Right-sided extracranial carotid artery stenosis: Patient is postoperative day 1 from a right carotid endarterectomy. She is doing well and will be discharged to home care today. Subjective Patient has no complaints other than some mild right-sided neck pain. Physical Exam 2 Vital Signs (Past 24 Hours): Last Vital Signs Temp 36.9 C 09/16/18 08:00 Pulse 67 09/16/18 12:00 Resp 19 09/16/18 12:00 BP 121/40 L 09/16/18 12:00 Pulse Ox 92 09/16/18 12:00 Patient is awake oriented x3 she is in no apparent distress. She has no neurological deficits. Her incision is dry and clean with minimal swelling. There is slight ecchymosis seen.
--- NOTE | 2018-09-24 11:08 | Discharge Summary ---
Date of Service September 24, 2018 Admission HPI Per Admitting Provider Ms. Radha Hare, is a 67-year-old female who recently required evaluation at [facility] for severe vertigo symptoms. This occurred in mid- July and per her report included an MRI that did not show any evidence of a stroke, but a carotid duplex that was performed at that time showed a 70-99% stenosis of her left internal carotid and a critical stenosis on the right internal carotid artery. As previously stated, her primary symptoms consist of vertigo which does occur even when she is lying in bed, not necessarily with activity. She will occasionally get symptoms of dysphagia, but it sounds to be more consistent with a globus sensation as it is intermittent and resolves immediately rather than true dysphagia. She denies any symptoms of transient monocular blindness, unilateral weakness or numbness, or any dysarthria. The stenosis of her right carotid was confirmed by CTA. Admission Exam Per Admitting Provider She is a healthy-appearing middle-aged female in no acute distress. Her right arm blood pressure is 170/52, and her left arm blood pressure is 160/60. Her sclerae are anicteric, and her mucous membranes are moist. Her neck is supple, with palpable carotid pulses bilaterally and bruit auscultated bilaterally, greater on the right side. Her heart is regular rate and rhythm with no murmurs appreciated. Her lungs are clear to auscultation bilaterally. Her abdomen is soft, nontender, and nondistended. Her extremities are warm, well perfused with 2+ radial and 1+ DP pulses bilaterally. She has no focal neurologic deficits currently. Principal Diagnosis 1. s/p Right Carotid Endarterectomy 2. Right Internal Carotid Artery Stenosis Discharge Exam Constitutional WD/WN, vitals as above healthy appearing, cooperative and comfortable; not in distress Eyes PERRL, conjunctivae normal, anicteric sclerae ENMT external ear and nose normal, oropharynx normal Neck trachea midline, no thyromegaly R neck incision C/D/I with dermabond visible. + tenderness, local edema, mild ecchymosis, with small hematoma noted. Respiratory normal respiratory effort, lungs clear to auscultation Cardiovascular RRR, no murmur, no edema Gastrointestinal (Abdomen) normal bowel sounds, soft, nontender, no hepatosplenomegaly Musculoskeletal no cyanosis or clubbing, extremities motor strength 5/5 Skin no rashes, warm and dry Neurologic awake; no focal motor deficits, not confused and not obtunded Speech / Cognition: no expressive aphasia and no receptive aphasia Motor/Sensory: no tremor, normal movement, no pronator drift and no sensory deficit Cranial Nerves: sense of smell intact, EOM intact bilaterally, normal facial strength, tongue midline and normal gag reflex Psychiatric A+Ox3, euthymic affect Apperance: appropriately dressed, appropriately groomed and appeared stated age Eye Contact: good eye contact Motor Behavior: steady gait and station Speech: normal rate/rhythm/volume of speech Affect: euthymic affect Thought Process: goal directed thought process, linear/logical thought process and clear/coherent thought process Cognition: recent memory grossly intact, remote memory grossly intact and attention grossly intact Discharge Data Allergies Allergy/AdvReac Type Severity Reaction Status Date / Time oxycodone AdvReac Severe syncope, Verified 09/15/18 05:43 low bp nickel AdvReac rash and Verified 09/15/18 05:43 skin turns green Consultations 09/15/18 06:07 Consult Signals Collector/Analyst Routine Procedures Performed Operation Date: 09/15/18 07:30 Actual Procedures p Right Carotid Endarterectomy(Right) - Lenny Joya MD Hospital Course (1) Right-sided extracranial carotid artery stenosis: Patient is postoperative day 1 from a right carotid endarterectomy. She is doing well and will be discharged to home care today. Total Time Total Time Spent Total Time Spent (In Minutes): 20 minutes Total Time Includes: Examination of the Patient, Discharge Planning and Medication Reconciliation Discharge Plan Discharge Items Patient Disposition: Home - Self-Care Reason For Visit: RIGHT CEA Discharge Diagnosis: Right internal carotid artery stenosis Discharge Goals: Therapeutic intervention Activity: Per 'Additional Instructions' section Bathing Comment: may shower starting tomorrow Non-emergency contact: Surgeon Call non-emergency contact if: you have any medication questions, your symptoms worsen, your pain is not controlled, your pain is worsening, your pain is unusual for you, your pain is concerning for you, your temperature is above 101.5, your wound has increased redness, your wound has increased drainage and your wound pain has increased Follow-up/Referrals: Karl Howe DO [Primary Care Provider] - Diet: Heart Healthy Addtl Provider Instructions: SPECIAL CARE INSTRUCTIONS: Medications: * Continue to take Aspirin as directed. Incision Care: * You may shower, but do not rub incision. You may let the warm soapy water run over it. Be sure to dry the incision well after bathing. * Do not shave directly over the incision until it is healed. * DO NOT IMMERSE THE INCISION IN A TUB/POOL/etc. UNTIL HEALED. Restrictions: * Do not drive for at least one week or if you are still taking any narcotic pain medication. * Do not lift anything heavier than a gallon of milk for one week after going home. Possible Complications: * Numbness - It is normal to have some numbness around the incision. Numbness can extend beyond the incision to areas of the neck, ear and face. The numbness is due to bruising of nerves during the surgery and will gradually improve over a period of months. * Hoarseness/Difficulty Speaking and Swallowing - The bruising of nerves in the neck can also cause a hoarse voice, difficulty speaking or swallowing. This may improve over time, HOWEVER, if it continues for more than a few days please contact our office ([phone]). * Excessive Swelling - There will be some swelling immediately after surgery which usually resolves within one week. If you notice that the swelling is getting worse, notify your surgeon ([phone]). * Drainage/Bleeding - If there is any drainage or bleeding, it should be a very small amount (less than a teaspoon per day). If you have excessive bleeding or drainage from the incision, call your surgeon ([phone]) right away. ACTIVATION OF EMERGENCY MEDICAL SYSTEM: Call 911, immediately, if you experience any of the following: Warning Signs and Symptoms of Stroke: * Sudden numbness or weakness of the face, arm or leg, especially on one side of the body * Sudden confusion, trouble speaking or understanding * Sudden trouble seeing in one or both eyes * Sudden trouble walking, dizziness, loss of balance or coordination * Sudden severe headache with no cause Do not delay calling 911 if you experience any warning signs or symptoms of a stroke. Delay in seeking medical attention may affect what treatments can be given to you. Risk Factors for Stroke: You can reduce your chances of stroke by working with your medical provider to adopt a healthy lifestyle. Some specific ways to lower your chance of stroke are: * If you are a smoker, now is the time to stop smoking cigarettes * If you are diabetic, improve the control of your blood sugars * Avoid excessive amounts of alcohol * Control high blood pressure * Lose weight if you are overweight * Be sure to lead an active lifestyle * Eat a healthy diet low in salt, cholesterol and fat You should know about other risk factors for stroke that you are unable to control. These include: * Age 55 years or older * Male gender * Certain racial groups: , or / * Family History of Stroke, Mini stroke or Heart Attack * Sickle Cell Disease You will be receiving a call from the Vascular Surgery Nurse after you are discharged. FOLLOW UP VISIT: It is important for you to keep your follow up appointments with your medical provider. Keep any scheduled doctor appointments. Prescriptions: New hydrocodone-acetaminophen [Thompson] 5-325 mg tablet 1 tab PO Q6H PRN (Reason: pain) Qty: 20 RF: 0 Continue trazodone 100 mg Tablet 100 mg PO HS Qty: 0 RF: 0 citalopram 40 mg Tablet 40 mg PO HS Qty: 0 RF: 0 aspirin 81 mg Tablet,Delayed Release (Dr/Ec) 81 mg PO QAM Qty: 0 RF: 0 olmesartan 40 mg Tablet 40 mg PO QAM Qty: 0 RF: 0 atorvastatin [Lipitor] 40 mg Tablet 40 mg PO PM RF: 0 amlodipine 5 mg Tablet 5 mg PO QAM RF: 0 pantoprazole 40 mg Tablet,Delayed Release (Dr/Ec) 40 mg PO QAM RF: 0 hydrochlorothiazide 25 mg Tablet 25 mg PO DAILY PRN (Reason: Hypertension) RF: 0 Stand-Alone Forms: [facility]/Other Patient Handouts: Endarterectomy Carotid Dc, Incision Care Dc Discharge Orders: Discharge Order (Routine); Ordered 09/16/18 Ordered By: Lenny Joya Admission Data Admit Date/Time: 09/15/18 06:07 Attending Provider: Lenny Joya Admit Provider: Lenny Joya Primary Care Provider: Karl Howe Other Providers: Modesto Hanson Service: Intensive Care Unit Other Interventions: Discharge Summary Assessment (RN) Last Done: 09/16/18 13:25 DC Date/Time DO NOT enter until pt leaves facility: 09/16/18 15:05
== END 2018-09-16 15:05 | disposition home or self-care (01) | DRG 39 ==
LOC: ASU 05:20 → 1E 06:07

== ENCOUNTER 2018-10-04 05:46 | Inpatient (IN) ==
--- NOTE | 2018-09-10 15:15 | PAT Medication Instructions ---
Medication Instructions Date of Service September 10, 2018 Home Medications trazodone 100 mg PO HS aspirin 81 mg PO QAM citalopram 40 mg PO HS olmesartan 40 mg PO QAM amlodipine 5 mg PO QAM atorvastatin [Lipitor] 40 mg PO PM hydrochlorothiazide 25 mg PO DAILY PRN pantoprazole 40 mg PO QAM ASK your surgeon for instructions aspirin 81 mg PO QAM DO NOT take the morning of surgery hydrochlorothiazide 25 mg PO DAILY PRN olmesartan 40 mg PO QAM Take morning of surgery With a small sip of water, OTHERWISE NOTHING TO EAT OR DRINK AFTER MIDNIGHT: amlodipine 5 mg PO QAM pantoprazole 40 mg PO QAM Take evening before surgery trazodone 100 mg PO HS citalopram 40 mg PO HS atorvastatin [Lipitor] 40 mg PO PM hydrochlorothiazide 25 mg PO DAILY PRN Other Notes If you have any questions please call us at [phone] or [phone] or [phone] or [phone]
--- NOTE | 2018-09-13 11:01 | Anesthesiology Consultation ---
Date of Service September 13, 2018 Assessment & Plan (1) Encounter for pre-operative examination: Plan: Patient having R carotid endarterectomy with Dr. Joya 09/15/18. Dr. Gibson aware. Chart Review Chart Review: Acceptable Risk for Surgery and Patient seen in Pre Admission Testing Teaching & Discussion Instructed NPO after midnight before surgery, except medications with 15 cc of water. Medication instructions provided according to the PAT guidelines. History Surgery Operation Date: 10/04/18 12:25 Proposed Procedures p C3-C4 Anterior Cervical Discectomy and Fusion - Bernabe Gibson, Height/Weight Height: 5 ft 5 in Weight: 80.6 kg Allergies Allergy/AdvReac Type Severity Reaction Status Date / Time oxycodone AdvReac Severe syncope, Verified 09/06/18 14:14 low bp nickel AdvReac rash and Verified 09/06/18 14:14 skin turns green Medications Home Medications Medication Instructions Recorded Confirmed Last Taken trazodone 100 mg PO HS #0 09/22/11 09/06/18 05/10/18 20:00 aspirin 81 mg PO QAM #0 03/30/18 09/06/18 07/01/18 citalopram 40 mg PO HS #0 03/30/18 09/06/18 05/10/18 20:00 olmesartan 40 mg PO QAM #0 03/30/18 09/06/18 07/01/18 amlodipine 5 mg PO QAM 09/06/18 09/06/18 Unknown atorvastatin [Lipitor] 40 mg PO PM 09/06/18 09/06/18 Unknown hydrochlorothiazide 25 mg PO DAILY PRN 09/06/18 09/06/18 Unknown pantoprazole 40 mg PO QAM 09/06/18 09/06/18 Unknown Past Medical History Medical History HTN (hypertension) (Chronic) Mesenteric artery stenosis Gout (Chronic) Depression (Chronic) Chronic back pain (Chronic) Hyperlipidemia (Inactive) Hypertension (Inactive) Carotid artery stenosis Diverticular disease Neck pain Past Family History Family History Mother Family history of early CAD Past Surgical History Surgical History History of arthroplasty of right knee (Chronic) History of back surgery (Chronic) History of carpal tunnel surgery (Chronic) right H/O left cataract extraction (Chronic) 04/29/18-2mg IV versed given without issues History of endoscopic sinus surgery (Chronic) History of arthroscopy (Inactive) chencho knee History of bilateral tubal ligation (Inactive) History of colonoscopy (Inactive) w/ polypectomy Past Anesthesia History No Hx of Anesthesia Complications and No Family Hx of Anesthesia Complications History of PONV No Motion Sickness Screening History of Motion Sickness: Yes STOP BANG Total 2 Social History Smoking Status: Never smoker Do You Dip or Chew Tobacco: No Hx Alcohol Use: Yes Alcohol type: wine alcohol intake frequency: holidays/special occasions only Hx Substance Use: No substance use type: does not use Exercise / Class Metabolic Activity II 4-5 Yardwork/Stairs/Walk up hill (no CP or SOB with stairs) Review of Systems Pt denies any recent chest pain, shortness of breath, palpitations, cough, fever or URI. Physical Exam Vital Signs BP: 138/56 P: 61bpm SPO2: 94% RA T: 98.3 F R: 12 ENMT Mouth: + dentures (partial upper); no chipped teeth and no loose teeth Thyromental Distance: < 3.5 Finger Breadths (3) Mallampati Class: I Neck normal visual inspection and + limited neck extension (mildly) Respiratory normal respiratory effort Auscultation: lungs clear to auscultation bilaterally Cardiovascular Rate/Rhythm: regular rate and regular rhythm Heart Sounds: no murmur Vessels: + carotid bruit (Right side) Extremities: no edema Testing Electrocardiogram Date: 09/13/18 Findings: + NSR @ (63) Chest X-Ray Date: 07/01/18 Findings: + NAD Stress Test Date: 09/08/18 Type: DSE Resting EF: 65-69% The stress echo is negative for inducible ischemia. There is no EKG or echo evidence of ischemia. No chest pain is reported with this test. 99% of age- predicted maximal target heart rate was obtained. No significant arrhythmias were noted. Normal heart rate and blood pressure response to dobutamine infusion. Occasional PACs were noted during stress. Baseline echo showed mild NC, borderline LVH and normal left ventricular cavity size and EF. Other Testing Neck CTA 09/01/18 1. Multifocal severe stenoses (up to 80%) of the proximal right internal carotid artery due to calcified and noncalcified atherosclerotic plaque, as detailed above. 2. Moderate plaque within the left internal carotid artery without significant stenosis. 3. Dominant, patent left vertebral artery. Diminutive right vertebral artery likely on a congenital basis. Laboratory Results 09/13/18 11:16 09/13/18 11:16 Blood Type A Positive 09/13/18 11:16 Antibody Screen NEGATIVE 09/13/18 11:16 PT 10.7 Seconds (9.0-12.0) 09/13/18 11:16 INR 1.1 (0.9-1.1) 09/13/18 11:16 APTT 25.4 Seconds (21.0-31.0) 09/13/18 11:16 Urine Color Yellow 09/13/18 Unknown Urine Appearance Clear (Clear) 09/13/18 Unknown Urine pH 5.0 (4.5-7.5) 09/13/18 Unknown Ur Specific [place] 1.016 (1.000-1.030) 09/13/18 Unknown Urine Protein Negative (Negative) 09/13/18 Unknown Urine Glucose (UA) Negative (Negative) 09/13/18 Unknown Urine Ketones Negative (Negative) 09/13/18 Unknown Urine Nitrite Negative (Negative) 09/13/18 Unknown Ur Leukocyte Esterase Negative (Negative) 09/13/18 Unknown
[2018-09-13 12:25] LABS: Basophils # (auto) 0.04 K/uL (0-0.2); Basophils % (auto) 0.6 %; Hematocrit (blood only) 33.9 % (37-47); Hemoglobin 10.9 g/dL (12.0-16.0); Immature Granulocytes # (auto) 0.02 K/uL (0.00-0.02); Immature Granulocytes % (auto) 0.3 %; Lymphocytes # (auto) 2.09 K/uL (1.2-3.4); Lymphocytes % (auto) 31.2 %; Mean Corpuscular Hgb Conc 32.2 g/dL (32-36); Mean Corpuscular Volume 99.7 fL (80-100); Mean Platelet Volume 11.3 fL (7.4-10.4); Monocytes # (auto) 0.77 K/uL (0.11-0.59); Monocytes % (auto) 11.5 %; Neutrophils # (auto) 3.38 K/uL (1.4-6.5); Neutrophils % (auto) 50.4 %; Platelet Count 275 K/uL (130-400); RDW Coefficient of Variation 14.2 % (11.5-14.5); RDW Standard Deviation 51.4 fL (36.4-46.3)
[2018-09-13 12:34] LABS: BUN Creatinine Ratio 30.6 (10-20); Calcium 9.4 mg/dl (8.5-10.1); Creatinine Clr Calc Pharmacy 52.3 ml/min; Est GFR (African American) 61.1; Est GFR (Non-African American) 52.7; Potassium 4.3 mmol/L (3.5-5.1)
[2018-09-13 12:35] LABS: INR 1.1 (0.9-1.1); Partial Thromboplastin Time 25.4 Seconds (21.0-31.0); Prothrombin Time 10.7 Seconds (9.0-12.0)
[2018-09-13 12:52] LABS: Appearance Urine Clear (Clear); Bilirubin Urine Negative (Negative); Color Urine Yellow; Glucose Urine UA Negative (Negative); Ketones Urine Negative (Negative); Leukocyte Esterase Urine Negative (Negative); Nitrite Urine Negative (Negative); Protein Urine Negative (Negative); Specific Gravity Urine 1.016 (1.000-1.030); Urobilinogen Urine Negative (Negative)
[2018-10-04] MEDS ORDERED: CeleBREX 200 MG CAP PO SCH (06:00)
[2018-10-04] MEDS ORDERED: CEFAZOLIN 2000MG 2,000 MG/15 ML SYR IV SCH (06:00)
[2018-10-04] MEDS ORDERED: ACETAMINOPHEN 500 MG TAB PO SCH (06:00)
[2018-10-04] MEDS ORDERED: GABAPENTIN 300 MG PO SCH (06:00)
[2018-10-04] MEDS ORDERED: LR 15ML/HR IV SCH (06:00)
[2018-10-04] MEDS ORDERED: fentaNYL citrate 100 MCG/2 ML VIAL ONE ×3 (06:35→08:16)
[2018-10-04] MEDS ORDERED: HYDROmorphone INJ 2 MG/ML SYR/VIAL ONE ×2 (06:35)
[2018-10-04] MEDS ORDERED: ONDANSETRON INJ 2 MG/ML 2 ML VIAL ONE (06:36)
[2018-10-04] MEDS ORDERED: LIDOCAINE HCL 2% 2 ML VIAL/AMP(20MG/ML) INFIL ONE (06:36)
[2018-10-04] MEDS ORDERED: NEOSTIGMINE METHYLSULFATE 1 MG/ML 10ML VIAL ONE (06:36)
[2018-10-04] MEDS ORDERED: ROCURONIUM BROMIDE 10 MG/ML 5 ML VIAL ONE (06:36)
[2018-10-04] MEDS ORDERED: GLYCOPYRROLATE 0.2 MG/ML VIAL ONE (06:36)
[2018-10-04] MEDS ORDERED: PROPOFOL IV EMULSION 10 MG/ML 20 ML VIAL IV ONE (06:36)
[2018-10-04] MEDS ORDERED: DEXAMETHASONE SOD INJ 4 MG/ML VIAL ONE (06:36)
[2018-10-04] MEDS ORDERED: BACITRACIN INJ 50,000 UNIT VIAL ONE (06:54)
--- NOTE | 2018-10-04 07:04 | Anesthesiology Consultation ---
Date of Service October 04, 2018 The patient had a R CEA on 09/15/18 which she tolerated well. She was a Grade 2 view with a Mac 3 blade. Assessment & Plan (1) Encounter for pre-operative examination: Chart Review Chart Review: Acceptable Risk for Surgery and Patient NOT seen in Pre Admission Testing Consults Requested none ASA ASA3 Proposed Anesthesia Anesthesia Type: General Anesthesia Line Insertion: Arterial line Risk / Benefits Reviewed With: PT / POA / Parent / Guardian, Accepts Plan and Informed Consent Obtained NPO Date Last Intake of Fluids: 10/04/18 Time Last Intake of Fluids: 03:00 Last Intake of Fluids Comment: sip of water with pills Date Last Intake of Solids: 10/03/18 Time Last Intake of Solids: 20:00 History Surgery Operation Date: 10/04/18 07:45 Proposed Procedures p C3-C4 Anterior Cervical Discectomy and Fusion - Bernabe Gibson, Height/Weight Height: 5 ft 5 in Weight: 82.157 kg Allergies Allergy/AdvReac Type Severity Reaction Status Date / Time oxycodone AdvReac Severe syncope, Verified 09/15/18 05:43 low bp nickel AdvReac rash and Verified 10/04/18 06:03 skin turns green Medications Home Medications Medication Instructions Recorded Confirmed Last Taken trazodone 100 mg PO HS #0 09/22/11 10/04/18 10/03/18 20:00 aspirin 81 mg PO QAM #0 03/30/18 10/04/18 10/03/18 09:00 citalopram 40 mg PO HS #0 03/30/18 10/04/18 10/03/18 20:00 olmesartan 40 mg PO QAM #0 03/30/18 10/04/18 10/04/18 03:00 amlodipine 5 mg PO QAM 09/06/18 10/04/18 10/03/18 09:00 atorvastatin [Lipitor] 40 mg PO PM 09/06/18 10/04/18 10/03/18 20:00 hydrochlorothiazide 25 mg PO DAILY PRN 09/06/18 10/04/18 10/03/18 09:00 pantoprazole 40 mg PO QAM 09/06/18 10/04/18 10/04/18 03:00 Active Medications Generic Name Dose Route Start Last Admin Trade Name Freq PRN Reason Stop Dose Admin Acetaminophen 1,000 mg 02/18/19 06:00 10/04/18 06:18 Tylenol PO 10/04/18 18:00 1,000 mg PREOP JUDITH Administration Celecoxib 200 mg 10/04/18 06:00 10/04/18 06:18 Celebrex PO 10/04/18 18:00 200 mg PREOP JUDITH Administration Gabapentin 300 mg 10/04/18 06:00 10/04/18 06:18 Neurontin PO 10/04/18 18:00 300 mg PREOP JUDITH Administration Lactated Ringer's 1,000 mls @ 15 mls/hr 10/04/18 06:00 10/04/18 06:29 Lr IV 10/05/18 05:59 15 mls/hr .Q24H JUDITH Administration Past Medical History Medical History HTN (hypertension) (Chronic) Mesenteric artery stenosis Gout (Chronic) Depression (Chronic) Chronic back pain (Chronic) Hyperlipidemia (Inactive) Hypertension (Inactive) Carotid artery stenosis Diverticular disease Neck pain Past Family History Family History Mother Family history of early CAD Past Surgical History Surgical History History of arthroplasty of right knee (Chronic) History of back surgery (Chronic) History of carpal tunnel surgery (Chronic) right History of CEA (carotid endarterectomy) H/O left cataract extraction (Chronic) 04/29/18-2mg IV versed given without issues History of endoscopic sinus surgery (Chronic) History of arthroscopy (Inactive) chencho knee History of bilateral tubal ligation (Inactive) History of colonoscopy (Inactive) w/ polypectomy Past Anesthesia History No Hx of Anesthesia Complications and No Family Hx of Anesthesia Complications History of PONV No Motion Sickness Screening History of Motion Sickness: No STOP BANG Total 2 Social History Smoking Status: Never smoker Do You Dip or Chew Tobacco: No Hx Alcohol Use: Yes Alcohol type: wine alcohol intake frequency: holidays/special occasions only Hx Substance Use: No substance use type: does not use Exercise / Class Metabolic Activity II 4-5 Yardwork/Stairs/Walk up hill Review of Systems no chest pain or sob Physical Exam Vital Signs Last Vital Signs Temp 37 C 10/04/18 06:07 Pulse 81 10/04/18 06:07 Resp 18 10/04/18 06:07 BP 141/87 H 10/04/18 06:07 Pulse Ox 95 10/04/18 06:07 Constitutional + obese ENMT Mouth: + dental restorations Thyromental Distance: > or= 3.5 Finger Breadths Mallampati Class: III Neck normal visual inspection Respiratory normal respiratory effort Cardiovascular Rate/Rhythm: regular rate and regular rhythm Musculoskeletal Spine: + limited cervical ROM and + pain with cervical ROM Neurologic moves all extremities Psychiatric Orientation: alert and oriented x 3 Testing Electrocardiogram Date: 09/13/18 Findings: + NSR @ (63) Chest X-Ray Date: 07/01/18 Findings: + NAD Stress Test Date: 09/08/18 Type: DSE Resting EF: 65-69% The stress echo is negative for inducible ischemia. There is no EKG or echo evidence of ischemia. No chest pain is reported with this test. 99% of age- predicted maximal target heart rate was obtained. No significant arrhythmias were noted. Normal heart rate and blood pressure response to dobutamine infusion. Occasional PACs were noted during stress. Baseline echo showed mild TN, borderline LVH and normal left ventricular cavity size and EF. Other Testing Neck CTA 09/01/18 1. Multifocal severe stenoses (up to 80%) of the proximal right internal carotid artery due to calcified and noncalcified atherosclerotic plaque, as detailed above. 2. Moderate plaque within the left internal carotid artery without significant stenosis. 3. Dominant, patent left vertebral artery. Diminutive right vertebral artery likely on a congenital basis. Laboratory Results 09/13/18 11:16 09/13/18 11:16 Blood Type A Positive 09/13/18 11:16 Antibody Screen NEGATIVE 09/13/18 11:16 PT 10.7 Seconds (9.0-12.0) 09/13/18 11:16 INR 1.1 (0.9-1.1) 09/13/18 11:16 APTT 25.4 Seconds (21.0-31.0) 09/13/18 11:16 Urine Color Yellow 09/13/18 Unknown Urine Appearance Clear (Clear) 09/13/18 Unknown Urine pH 5.0 (4.5-7.5) 09/13/18 Unknown Ur Specific [place] 1.016 (1.000-1.030) 09/13/18 Unknown Urine Protein Negative (Negative) 09/13/18 Unknown Urine Glucose (UA) Negative (Negative) 09/13/18 Unknown Urine Ketones Negative (Negative) 09/13/18 Unknown Urine Nitrite Negative (Negative) 09/13/18 Unknown Ur Leukocyte Esterase Negative (Negative) 09/13/18 Unknown
[2018-10-04] MEDS ORDERED: HYDROmorphone INJ 1 MG/ML SYRINGE IV PRN (07:19)
[2018-10-04] MEDS ORDERED: MEPERIDINE HCL 25 MG/ML CARP IV PRN (07:19)
[2018-10-04] MEDS ORDERED: PHENYLEPHRINE 100MCG/ML 5ML SYR IV PRN (07:19)
[2018-10-04] MEDS ORDERED: ATROPINE SULFATE 0.1 MG/ML 10ML SYR IV PRN (07:19)
[2018-10-04] MEDS ORDERED: fentaNYL citrate 100 MCG/2 ML VIAL IV PRN (07:19)
[2018-10-04] MEDS ORDERED: ONDANSETRON INJ 2 MG/ML 2 ML VIAL IV PRN ×2 (07:19→10:27)
[2018-10-04] MEDS ORDERED: ePHEDrine sulfate 50 MG/ML AMP IV PRN (07:19)
[2018-10-04] MEDS ORDERED: LABETALOL HCL IV 5 MG/ML 20ML IV PRN (07:19)
--- NOTE | 2018-10-04 07:29 | History & Physical Bridge Note ---
Date of Service October 04, 2018 History & Physical Bridge Note I have examined the patient, reviewed the History & Physical and in the interval since the performance of the History & Physical I have noted the following changes of clinical significance: no changes noted
--- NOTE | 2018-10-04 07:29 | History & Physical Report ---
Date of Service October 04, 2018 Assessment & Plan (1) Cervical stenosis of spinal canal: Anterior cervical discectomy and fusion C3-4 Present on Admission?: Yes History of Present Illness Chief Complaint: Neck and arm pain Primary Care Provider: Karl Howe This is a 67-year-old female who presents with chronic persistent neck and arm pain. After failing extensive course of nonoperative care is here for surgical intervention. Allergies Allergy/AdvReac Type Severity Reaction Status Date / Time oxycodone AdvReac Severe syncope, Verified 09/15/18 05:43 low bp nickel AdvReac rash and Verified 10/04/18 06:03 skin turns green Home Medications Home Medications Medication Instructions Recorded Confirmed Type trazodone 100 mg PO HS #0 09/22/11 10/04/18 History aspirin 81 mg PO QAM #0 03/30/18 10/04/18 History citalopram 40 mg PO HS #0 03/30/18 10/04/18 History olmesartan 40 mg PO QAM #0 03/30/18 10/04/18 History amlodipine 5 mg PO QAM 09/06/18 10/04/18 History atorvastatin [Lipitor] 40 mg PO PM 09/06/18 10/04/18 History hydrochlorothiazide 25 mg PO DAILY PRN 09/06/18 10/04/18 History pantoprazole 40 mg PO QAM 09/06/18 10/04/18 History Past Med/Surg History Medical History HTN (hypertension) (Chronic) Mesenteric artery stenosis Gout (Chronic) Depression (Chronic) Chronic back pain (Chronic) Hyperlipidemia (Inactive) Hypertension (Inactive) Carotid artery stenosis Diverticular disease Neck pain Surgical History History of arthroplasty of right knee (Chronic) History of back surgery (Chronic) History of carpal tunnel surgery (Chronic) right History of CEA (carotid endarterectomy) H/O left cataract extraction (Chronic) 04/29/18-2mg IV versed given without issues History of endoscopic sinus surgery (Chronic) History of arthroscopy (Inactive) chencho knee History of bilateral tubal ligation (Inactive) History of colonoscopy (Inactive) w/ polypectomy Family History Mother Family history of early CAD Social History Current Living Situation: Spouse Other Information That Helps Us Care for You: No Feels Safe at Home: Yes Safety Concerns: Feels Safe At This Time Smoking Status: Never smoker Do You Dip or Chew Tobacco: No Hx Alcohol Use: Yes Alcohol type: wine Alcohol Intake Frequency: holidays/ special occasions only Hx Substance Use: No Beliefs That Will Affect Care: None Preferred Language: Guamanian Physical Exam 2 Vital Signs (Past 24 Hours): Last Vital Signs Temp 37 C 10/04/18 06:07 Pulse 81 10/04/18 06:07 Resp 18 10/04/18 06:07 BP 141/87 H 10/04/18 06:07 Pulse Ox 95 10/04/18 06:07 Results & Data Medications Administered Acetaminophen (Tylenol) 1,000 mg PO PREOP JUDITH Stop: 10/04/18 18:00 Last Admin: 10/04/18 06:18 Dose: 1,000 mg Celecoxib (Celebrex) 200 mg PO PREOP JUDITH Stop: 10/04/18 18:00 Last Admin: 10/04/18 06:18 Dose: 200 mg Gabapentin (Neurontin) 300 mg PO PREOP JUDITH Stop: 10/04/18 18:00 Last Admin: 10/04/18 06:18 Dose: 300 mg Lactated Ringer's (Lr) 1,000 mls @ 15 mls/hr IV .Q24H JUDITH Stop: 10/05/18 05:59 Last Admin: 10/04/18 06:29 Dose: 15 mls/hr
[2018-10-04] MEDS ORDERED: MIDAZOLAM HCL 1 MG/ML 2ML VIAL ONE (07:36)
[2018-10-04] MEDS ORDERED: PHENYLEPHRINE 100MCG/ML 5ML SYR ONE (07:46)
[2018-10-04] MEDS ORDERED: FLOSEAL HEMOSTATIC MATRIX 10ML TOP ONE (08:14)
[2018-10-04] MEDS ORDERED: ePHEDrine sulfate 50 MG/ML SYR ONE (08:17)
[2018-10-04] MEDS ORDERED: ePHEDrine sulfate 50 MG/ML AMP ONE (08:17)
[2018-10-04] MEDS ORDERED: LARYING-O-JET KIT (LTA) ONE (08:32)
--- NOTE | 2018-10-04 08:48 | Operative Report ---
Post Operative Report Pre & Post Diagnosis Operation Date: 10/04/18 07:45 Pre-Op Diagnosis: Cervical spinal stenosis with bilateral radiculopathy Post-Op Diagnosis: Same Procedure Operation Date: 10/04/18 07:45 Actual Procedures #1 anterior cervical discectomy bilateral foraminotomies C3-4. #2 anterior cervical arthrodesis C3-4. #3 placement of cortical allograft filled with DBM 8 mm in height at C3-4. #4 placement of globus plate and screws across C3-4. Surgeon Bernabe Gibson, Senior Office Assistant Shanthi Ross Estimated Blood Loss 10 Findings Consistent with Post-Op Diagnosis Specimens None Description of Procedure Patient was met with preoperatively case discussed all questions addressed. After informed consent obtained patient was taken to the operative suite underwent intubation placed in a supine position on the Julio table with the head López head of merchandise buying. All bony prominences well-padded eyes inspected to ensure no external pressure placed upon. This point the anterior cervical spine was prepped and draped in a sterile fashion. The assistance of fluoroscopy identified the C3-4 disc space and a transverse incision was placed along the left anterior aspect of the cervical spine. Sharp dissection with the assistance of bipolar elective cautery was performed down to and exposing the anterior cervical spine at C3-4. I verified my position with fluoroscopy. Then performed a complete discectomy out to the uncovertebral joints bilaterally. [place] distracting pins were utilized to assist in visualization. Removed all posterior annular fibers and longitudinal ligament for complete decompression. Endplates were then burred to subcortical bleeding bone and 8 mm cortical allograft filled with DBM tamped in position. Distraction apparatus was removed with a globus plate and screws applied with the assistance of fluoroscopy. Incision was then copious irrigated explored to ensure no damage to surrounding structures remaining bleeding. 10 round MADONNA drain inserted. Incision was then closed with 2 Vicryl in a fashion of 4 Monocryl for final skin closure. Steri-Strip sterile dressings placed. Patient will continue to PACU stable disc. Please note Shanthi Ross present throughout the entire procedure involved in patient positioning complex portions of the surgery and final skin closure. I attest to the content of the Intraoperative Record and any orders documented therein. Any exceptions are noted below.
[2018-10-04] MEDS ORDERED: ESMOLOL HCL INJ 10 MG/ML 10ML VIAL IV ONE (09:09)
--- NOTE | 2018-10-04 09:28 | Fluoroscopy Report ---
FL cervical 2-3V CLINICAL HISTORY: 67 years-old Female presenting with ACDF C3-4. TECHNIQUE: 2 fluoroscopic image(s) recorded as part of an intraoperative procedure. COMPARISON: CTA neck from 09/01/2018. FINDINGS/IMPRESSION: Interval anterior cervical discectomy and fusion of C3-C4. Normal anatomic alignment. Supporting tube s project over the aerodigestive tract. Please see surgical report for further details. Fluoroscopy dosage (mGy): 0.87. Fluoroscopy time: 8.2 seconds. Number or time of fluoroscopic spot images: 0. Electronically signed by: Colby Anders M.D. 10/04/2018 9:26 AM
--- NOTE | 2018-10-04 09:48 | Anesthesiology Progress Note ---
Date of Service October 04, 2018 Anesthesia Post Procedure Vital Signs Vital Signs: Temp Pulse Pulse Resp BP Pulse Ox 10/04/18 09:30 75 19 158/55 H 99 10/04/18 09:20 77 23 161/57 H 100 10/04/18 09:10 78 17 168/53 H 100 10/04/18 09:01 36.5 C 81 16 162/75 H 98 10/04/18 06:07 37 C 81 18 141/87 H 95 Notes Mental Status: alert / awake / arousable Patient Amnestic to Procedure: Yes Nausea / Vomiting: adequately controlled Pain: adequately controlled Airway Patency, RR, SpO2: stable & adequate BP & HR: stable & adequate Hydration State: stable & adequate Anesthetic Complications: no major complications apparent and Pt Satisfied with anesthetic care Notes: The patient is awake and doing well. She has no trouble breathing. Her neck is not swollen. The patient was reminded to let her nurse on the floor know immediately if she has any trouble breathing or neck swelling.
[2018-10-04] MEDS ORDERED: DiphenhydrAMINE HCL 50 MG/ML VIAL IV PRN (10:27)
[2018-10-04] MEDS ORDERED: LORazepam 0.5 MG/1 ML VIAL IV PRN (10:27)
[2018-10-04] MEDS ORDERED: LORazepam 0.5 MG TAB PO PRN (10:27)
[2018-10-04] MEDS ORDERED: hydroCHLOROthiazide 25 MG TAB PO PRN (10:27)
[2018-10-04] MEDS ORDERED: ACETAMINOPHEN 1,000 MG/100 ML VIAL IV PRN (10:27)
[2018-10-04] MEDS ORDERED: DO NOT ADMINISTER FLU VACCINE PRN (10:27)
[2018-10-04] MEDS ORDERED: MAGNESIUM HYDROXIDE SUSP 30 ML UDC PO PRN (10:27)
[2018-10-04] MEDS ORDERED: DO NOT ADMINISTER PNEUMOCOCCAL VACCINE PRN (10:27)
[2018-10-04] MEDS ORDERED: NALOXONE HCL 0.4 MG/1 ML VIAL/CARP IV PRN (10:27)
[2018-10-04] MEDS ORDERED: RACEPINEPHRINE 2.25% NEBU SOLN 0.5 ML VIAL INH PRN (10:27)
[2018-10-04] MEDS ORDERED: DEXAMETHASONE SOD PHOSPHATE 8 MG in SYRINGE 0 ML IV PRN (10:27)
[2018-10-04] MEDS ORDERED: SCOPOLAMINE 1.5 MG TDSY TD SCH (11:00)
[2018-10-04] MEDS: HYDROmorphone INJ 0.5 MG/0.5 ML SYR IV PRN ×2 (11:02→18:54)
[2018-10-04] MEDS: SODIUM CHLORIDE 0.9% 1000ML 1,000 ML IV SCH (11:03)
[2018-10-04] MEDS: OLMESARTAN MEDOXOMIL 40 MG TAB PO SCH (12:31)
[2018-10-04] MEDS: DOCUSATE SODIUM 100 MG CAP PO SCH ×2 (12:31→20:20)
[2018-10-04] MEDS: ASPIRIN 81 MG ECTAB PO SCH (12:31)
[2018-10-04] MEDS: PANTOprazole 40 MG TAB PO SCH (12:32)
[2018-10-04] MEDS: AMLODIPINE BESYLATE 5 MG TAB PO SCH (12:32)
[2018-10-04] MEDS: HYDROCODONE/ACETAMOPHEN 5/325MG TAB PO PRN ×2 (15:21→23:13)
[2018-10-04] MEDS: CEFAZOLIN 2000MG 2,000 MG/15 ML SYR IV SCH (15:24)
[2018-10-04] MEDS: CHECK SCOPOLAMINE PATCH PLACEMENT SCH (15:25)
[2018-10-04] MEDS ORDERED: TRAZODONE HCL 100 MG TAB PO SCH (21:00)
[2018-10-04] MEDS ORDERED: ATORVASTATIN 40 MG TAB PO SCH (21:00)
[2018-10-04] MEDS ORDERED: CITALOPRAM 40 MG TAB PO SCH (21:00)
[2018-10-05] MEDS: CEFAZOLIN 2000MG 2,000 MG/15 ML SYR IV SCH ×2 (00:11→07:49)
[2018-10-05] MEDS: CHECK SCOPOLAMINE PATCH PLACEMENT SCH ×2 (00:12→07:50)
[2018-10-05] MEDS: SODIUM CHLORIDE 0.9% 1000ML 1,000 ML IV SCH (00:13)
[2018-10-05] MEDS: HYDROmorphone INJ 0.5 MG/0.5 ML SYR IV PRN (01:17)
[2018-10-05] MEDS: HYDROCODONE/ACETAMOPHEN 5/325MG TAB PO PRN (07:14)
[2018-10-05] MEDS: ASPIRIN 81 MG ECTAB PO SCH (08:35)
[2018-10-05] MEDS: DOCUSATE SODIUM 100 MG CAP PO SCH (08:35)
[2018-10-05] MEDS: OLMESARTAN MEDOXOMIL 40 MG TAB PO SCH (08:35)
[2018-10-05] MEDS: AMLODIPINE BESYLATE 5 MG TAB PO SCH (08:36)
[2018-10-05] MEDS: PANTOprazole 40 MG TAB PO SCH (08:36)
--- NOTE | 2018-10-05 10:18 | Discharge Summary ---
Date of Service October 05, 2018 Admission HPI Per Admitting Provider This is a 67-year-old female who presents with chronic persistent neck and arm pain. After failing extensive course of nonoperative care is here for surgical intervention. Principal Diagnosis Cervical spinal stenosis with myeloradiculopathy Discharge Data Allergies Allergy/AdvReac Type Severity Reaction Status Date / Time oxycodone AdvReac Severe syncope, Verified 09/15/18 05:43 low bp nickel AdvReac rash and Verified 10/04/18 06:03 skin turns green Procedures Performed Operation Date: 10/04/18 07:45 Actual Procedures p C3-C4 Anterior Cervical Discectomy and Fusion(Not Applicable) - Bernabe Gibson DO Ordered Studies 10/04/18 07:45 FL cervical 2-3V Routine FL fluoroscopy <1hr Routine Hospital Course (1) Cervical stenosis of spinal canal: Patient underwent anterior cervical discectomy and fusion tolerated as well as taken the orthopedic floor postoperative. Postop day #1 she was swallowing well. No hoarseness. Arm symptoms markedly improved. MADONNA drain decreasing appropriately. Subsequently discharged home. Discharge orders and instructions found in the chart for further review. Total Time Total Time Spent Total Time Spent (In Minutes): None applicable Discharge Plan Discharge Items Patient Disposition: Home - Self-Care Reason For Visit: CERVICAL SPINAL STENOSIS Discharge Diagnosis: Cervical spinal stenosis with myelopathy Discharge Goals: Improve function Activity: Per 'Additional Instructions' section Non-emergency contact: Primary Care Provider Call non-emergency contact if: you have any medication questions Follow-up/Referrals: Karl Howe DO [Primary Care Provider] - Diet: Regular Addtl Provider Instructions: ACTIVITY RECOMMENDATIONS: SELF CARE INSTRUCTIONS AFTER CERVICAL FUSIONS 1. No smoking. Smoking drastically decreases the chance of a solid fusion. 2. No bending, lifting more than 5 pounds, or twisting (roll like a log when turning in bed). 3. You may shower 3 days after surgery. Thoroughly dry wound. Do not soak in the tub. 4. Cervical collar: Must be worn at all times including sleeping. You may remove the brace only to bath, eat and if you are sitting in a recliner. 5. Please walk as much as you can for exercise. Gradually increase the distance that you walk as your endurance increases. SPECIAL CARE INSTRUCTIONS: VERY IMPORTANT TO READ AND REVIEW A. Do not take any anti-inflammatory medications (i.e. Indocin, Advil, Aspirin, Naprosyn, Aleve, Motrin, etc.) as these may inhibit the chance of a solid fusion. Tylenol is okay to take. B. Your surgical incision has been closed with a cosmetic suture under the skin that will dissolve in about 6 weeks. In 14 days, you can use a pair of clean scissors and cut the suture that is left outside of the skin at the ends of your incision. C. Complications are uncommon, but please contact us if you have any signs or symptoms of: 1. wound infection (fever higher than 102.5 degrees F, redness, separation of wound, drainage, or increasing pain from the incision) 2. blood clots in legs (pain, swelling, redness and warmth in legs) 3. urinary tract infection (fever higher than 102.5 degrees, burning upon urination or increased frequency of urination) 4. nerve problems (inability to walk on your toes or heels, numbness, loss of bowel or bladder control) 5. any other symptoms that concern you. D. Please call the office at if you have any concerns or questions about your operation or recovery. MANAGING PAIN AFTER SPINAL SURGERY 1. Narcotic medication is intended for short-term use and will be provided for surgical pain. Surgical pain usually lasts for a period of 4-6 weeks. Narcotic medication includes Percocet, Vicodin, Darvocet, Tylenol #3 or Lortab. 2. Longer-term pain is more appropriately treated with non-narcotic medication such as Tylenol ES. 3. Muscle spasm is not appropriately treated with narcotics. Muscle relaxers such as Soma, Flexeril or Skelaxin can be used along with Tylenol ES. 4. Remember that we all live with some "aches and pains". This is not unusual or uncommon after an injury or as we get older. 5. We will provide appropriate medication within the normal guidelines of their prescribed use. We will also be very cautious and aware of potential abuse and extended duration of patients' medication needs. 6. Please allow 2-3 days to process refills. Prescriptions will not be mailed but must be picked up at the office. FOLLOW UP VISIT: Keep your scheduled follow-up appointment. Any questions, please call the office at . Prescriptions: New hydrocodone-acetaminophen [[place]] 5-325 mg Tablet 1 tab PO Q4H PRN (Reason: Pain, Moderate) Qty: 30 RF: 0 Continue trazodone 100 mg Tablet 100 mg PO HS Qty: 0 RF: 0 citalopram 40 mg Tablet 40 mg PO HS Qty: 0 RF: 0 aspirin 81 mg Tablet,Delayed Release (Dr/Ec) 81 mg PO QAM Qty: 0 RF: 0 olmesartan 40 mg Tablet 40 mg PO QAM Qty: 0 RF: 0 atorvastatin [Lipitor] 40 mg Tablet 40 mg PO PM RF: 0 amlodipine 5 mg Tablet 5 mg PO QAM RF: 0 pantoprazole 40 mg Tablet,Delayed Release (Dr/Ec) 40 mg PO QAM RF: 0 hydrochlorothiazide 25 mg Tablet 25 mg PO DAILY PRN (Reason: Hypertension) RF: 0 Stand-Alone Forms: [facility] Discharge Orders: Discharge Order (Routine); Ordered 10/05/18 Ordered By: Bernabe Gibson Admission Data Admit Date/Time: 10/04/18 10:22 Attending Provider: Bernabe Gibson Admit Provider: eBrnabe Gibson Primary Care Provider: Karl Howe Other Providers: Lenny Joya Service: Surgical Services
[2018-10-06] MEDS ORDERED: BISACODYL 5 MG TABEC PO PRN (08:52)
[2018-10-06] MEDS ORDERED: POLYETHYLENE (MIRALAX) 17 GM PACK PO PRN (08:52)
--- NOTE | 2018-10-06 11:23 | Anesthesiology Progress Note ---
Date of Service October 05, 2018 Anesthesia Post Procedure Vital Signs Vital Signs: Pulse Resp Pulse Ox 10/05/18 11:27 63 14 96 Pain Intensity Anterior Neck: Pain Intensity: 7 Notes Mental Status: alert / awake / arousable and participated in evaluation Patient Amnestic to Procedure: Yes Nausea / Vomiting: adequately controlled Pain: adequately controlled Airway Patency, RR, SpO2: stable & adequate BP & HR: stable & adequate Hydration State: stable & adequate Anesthetic Complications: no major complications apparent and Pt Satisfied with anesthetic care
== END 2018-10-05 12:36 | disposition home or self-care (01) | DRG 473 ==
LOC: ASU 05:46 → 3E 10:22

== ENCOUNTER 2022-07-04 11:55 | Inpatient (IN) ==
[2022-07-04] MEDS ORDERED: SODIUM CHLORIDE 0.9% 1000ML 1,000 ML IV ONE (12:20)
--- NOTE | 2022-07-04 12:44 | Emergency Department Note ---
Impression & Plan Weakness, LUCAS (acute kidney injury), Pedal edema, Anemia ED Provider Note NAME: ZHANE POTTER AGE: 71 SEX: F : 1950 ARRIVES VIA: Walk-In INFORMANT: [Patient] ED PROVIDER(S): [Manan Blue MD] CHIEF COMPLAINT: Abnormal laboratories HISTORY OF PRESENT ILLNESS: The patient is a 71-year-old female presents to the ER at the advice of her vascular surgeon for an elevation to her creatinine and BUN. The patient had a mesenteric angiogram performed 2 weeks ago. Just before the test, they did notice some increase to her creatinine and precautions were taken for the procedure. Over the last weeks, ever since the angiogram, the patient has noticed increasing edema of both legs, left side more so than the right. She has no energy and she is quite fatigued. She is still making urine. There has been some back pain but she has a history of lower back discomfort. No vomiting, no cough or cold or congestion. No fever. Patient had laboratory work performed yesterday showing a creatinine of 2.19 and a BUN of 60. These results prompted her referral to the ER. Of note, yesterday, at the vascular surgery office, she had an ultrasound of her left lower extremity for DVT, this was negative. The patient has noticed some intermittent pain in the lower abdomen bilaterally. It has been minimal. REVIEW OF SYSTEMS: See HPI for pertinent positives and negatives. A total of ten systems were reviewed and were otherwise negative. PMHx/PSHx: See Below SOCIAL HISTORY: See Below. PHYSICAL EXAM: GENERAL: Patient is in no acute distress. HEENT: No acute trauma, normocephalic atraumatic, mucous membranes moist, no nasal congestion, no scleral icterus. NECK: No stridor, no adenopathy, no meningismus, trachea is midline. LUNGS: Clear to auscultation bilaterally, no wheeze, no rhonchi, breath sounds equal. HEART: Without murmurs gallops or rubs, regular rate and rhythm. ABDOMEN: Soft, nontender, bowel sounds positive, no peritonitis. EXTREMITIES: No cyanosis. Moderate bilateral pedal edema worse on the left. No erythema or rash. NEUROLOGIC: Oriented x 3, no acute motor or sensory deficits, no focal weakness. SKIN: No rash, no jaundice, no diaphoresis. DIFFERENTIAL DIAGNOSIS: Infection, dehydration, UTI, urinary obstruction, contrast injury, metabolic abnormality, hypo/hyperglycemia, electrolyte disturbance, anemia, hypoxia, cardiac sources, DVT, as well as other pathologies. EMERGENCY DEPARTMENT COURSE/PROCEDURES: ECG: Indication was weakness. The ECG shows a normal sinus rhythm with a rate of 73. There is no ST elevation, no PVCs. The QTc was 473. Continuous Cardiac Monitoring: An order was placed for continuous cardiac monitoring. The monitor shows a rate of 70 with normal sinus rhythm. MEDICAL DECISION MAKING: There is no leukocytosis. The patient is anemic. She has been anemic as of late when looking back at previous testing. There was a normal platelet count. There was evidence for acute kidney injury with a creatinine of 1.89. BUN was 57. No concerning liver enzyme elevation. The patient appeared to be in a euthyroid state. Urinalysis did not show infection. COVID test returned negative. Abdominal and pelvis CT did not show any urinary obstruction. On exam, the patient did have pedal edema. She was not hypoxic or toxic. The patient received IV saline, 1 L. I spoke with the patient, I talked to case management. Given the findings of acute kidney injury, the patient does require a hospital stay. The reason for the bump in the creatinine is likely multifactorial, the recent dye load certainly could have been a contributing factor. Past Med/Surg History Medical History Carotid artery stenosis Chronic back pain Diverticular disease Gout HTN (hypertension) Hyperlipidemia Hypertension Mesenteric artery stenosis Neck pain Surgical History H/O left cataract extraction 04/29/18-2mg IV versed given without issues History of arthroplasty of right knee History of arthroscopy chencho knee History of back surgery History of bilateral tubal ligation History of carpal tunnel surgery right History of CEA (carotid endarterectomy) History of colonoscopy w/ polypectomy History of endoscopic sinus surgery Family History Mother Family history of early CAD Social History Smoking Status: Never smoker Second Hand Exposure: No; Hx Alcohol Use: No Hx Substance Use: Yes (hydrocodone) Preferred Language: Ethiopian Communication Ability: Effective Visual Impairment: No Limitations 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 Required: No Beliefs That Will Affect Care: None Current Living Situation: Alone Feels Safe at Home: Yes Assistive Devices: Denture - Upper Allergies Allergies Allergy/AdvReac Type Severity Reaction Status Date / Time oxycodone AdvReac Severe syncope, Verified 07/04/22 14:11 low bp nickel AdvReac Intermediate rash and Verified 07/04/22 14:11 skin turns green Home Meds Home Medications Medication Instructions Recorded Confirmed trazodone 100 mg tablet 100 mg PO HS ##0 09/22/11 07/04/22 aspirin 81 mg tablet,delayed 81 mg PO QAM ##0 03/30/18 07/04/22 release citalopram 40 mg tablet 40 mg PO HS ##0 03/30/18 07/04/22 amlodipine 5 mg tablet 5 mg PO QAM 09/06/18 07/04/22 atorvastatin 40 mg tablet (Lipitor) 40 mg PO PM 09/06/18 07/04/22 omeprazole magnesium 20 mg 40 mg PO BID 06/30/19 07/04/22 tablet,delayed release (Prilosec OTC) carvedilol phosphate 20 mg 20 mg PO DAILY 07/03/22 07/04/22 capsule,[id number] multiphase cyclobenzaprine 10 mg tablet 10 mg PO BID PRN Muscle spasms 07/03/22 07/04/22 hydrochlorothiazide 25 mg tablet 50 mg PO DAILY PRN Hypertension 07/03/22 07/04/22 hydrocodone 7.5 mg-acetaminophen 1 tab PO TID PRN Pain 07/03/22 07/04/22 325 mg tablet olmesartan 40 mg tablet 40 mg PO DAILY 07/03/22 07/04/22 gabapentin 300 mg capsule 300 mg PO TID 07/04/22 07/04/22 Previous Rx's Medication Instructions Recorded clopidogrel 75 mg tablet (Plavix) 75 mg PO DAILY #30 tabs 07/08/19 Results & Data (ED) Vital Signs Vital Signs - 24 hr 07/04/22 12:16 07/04/22 11:56 07/04/22 13:56 Temperature 36.5 C Temperature Source Temporal Artery Scan Pulse Rate 71 Pulse Rate [Left Finger] 68 70 Pulse Rhythm Regular Pulse Rhythm [Left Finger] Regular Regular Pulse Strength Normal Pulse Strength [Left Finger] Normal Normal Respiratory Rate 16 20 18 Respiratory Effort / Characteristics Non-Labored Spontaneous Non-Labored Non-Labored Respiratory Depth Normal Normal Normal Respiratory Pattern Regular Regular Regular Blood Pressure 156/56 H Blood Pressure [Left Arm] 212/68 H 175/57 H Blood Pressure Mean 89 Blood Pressure Mean [Left Arm] 116 96 Blood Pressure Position Sitting Blood Pressure Position [Left Arm] Sitting Sitting Pulse Oximetry 95 97 96 Oxygen Delivery Method Room Air Room Air Room Air Sepsis Recent Fever Within 48 Hours No Sepsis New/Unexplained Change in Mental Status No Sepsis Action Taken by Nursing No Action Required 07/04/22 15:00 Temperature Temperature Source Pulse Rate Pulse Rate [Left Finger] 70 Pulse Rhythm Pulse Rhythm [Left Finger] Regular Pulse Strength Pulse Strength [Left Finger] Normal Respiratory Rate 20 Respiratory Effort / Characteristics Non-Labored Respiratory Depth Normal Respiratory Pattern Regular Blood Pressure Blood Pressure [Left Arm] 173/63 H Blood Pressure Mean Blood Pressure Mean [Left Arm] 99 Blood Pressure Position Blood Pressure Position [Left Arm] Sitting Pulse Oximetry 98 Oxygen Delivery Method Room Air Sepsis Recent Fever Within 48 Hours Sepsis New/Unexplained Change in Mental Status Sepsis Action Taken by Shelter Medications Current Medication List: was personally reviewed by me Laboratory Data Attestation: I reviewed the patient's lab results. Result diagrams: 07/04/22 Unknown 07/04/22 Unknown Lab Results 07/04/22 07/04/22 07/04/22 Range/Units 14:20 Unknown Unknown WBC 7.63 (4.8-10.8) K/ul RBC 2.87 L (3.93-5.22) M/uL Hgb 9.5 L (12.0-16.0) g/dl Hct 28.9 L (34.1-44.9) % MCV 100.7 H (80.0-100.0) fL MCH 33.1 (25.0-34.0) pg MCHC 32.9 (32.0-36.0) g/dL RDW Std Deviation 47.5 H (36.4-46.3) fL RDW Coeff of Geeta 12.7 (11.5-14.5) % Plt Count 353 (130-400) K/uL MPV 10.9 (9.4-12.3) fL Immature Gran % (Auto) 0.8 % Neut % (Auto) 55.0 % Lymph % (Auto) 24.2 % Carroll % (Auto) 14.5 % Eos % (Auto) 5.0 % Baso % (Auto) 0.5 % Neut # (Auto) 4.19 (1.4-6.5) K/uL Lymph # (Auto) 1.85 (1.2-3.4) K/uL Carroll # (Auto) 1.11 H (0.24-0.82) K/uL Eos # (Auto) 0.38 (0-0.50) K/uL Baso # (Auto) 0.04 (0-0.2) K/uL Immature Gran # (Auto) 0.06 H (0.00-0.02) K/uL Sodium 136 (136-145) mmol/L Potassium 4.3 (3.5-5.1) mmol/L Chloride 101 (98-107) mmol/L Carbon Dioxide 26 (21-32) mmol/L Anion Gap 9 (3-11) BUN 57 H (6-23) mg/dl Creatinine 1.89 H (0.6-1.2) mg/dl Est Cr Clr Drug Dosing 28.6 ml/min Est GFR ( Amer) 30.2 ml/min Est GFR (Non-Af Amer) 26.0 ml/min BUN/Creatinine Ratio 30.2 H (10-20) Glucose 109 H (70-99(Fasting)) mg/dl Calcium 9.3 (8.5-10.1) mg/dl Phosphorus 4.0 (2.5-4.9) mg/dl Magnesium 1.9 (1.7-2.4) mg/dl Total Bilirubin 0.6 (0.2-1.0) mg/dl AST 14 (13-39) U/L ALT 16 (7-52) U/L Alkaline Phosphatase 80 (34-104) U/L Total Protein 7.0 (6.0-8.3) gm/dl Albumin 3.7 (3.4-5.0) gm/dl Globulin 3.3 (2.5-4.0) gm/dl Albumin/Globulin Ratio 1.1 (0.9-2) TSH (0.300-4.500) uIu/ml Urine Color Urine Appearance (Clear) Urine pH (4.5-7.5) Ur Specific [employer] (1.000-1.030) Urine Protein (Negative) Urine Glucose (UA) (Negative) Urine Ketones (Negative) Urine Blood (Negative) Urine Nitrite (Negative) Urine Bilirubin (Negative) Urine Urobilinogen (Negative) Ur Leukocyte Esterase (Negative) Urine WBC (Auto) (0-5) /hpf Urine RBC (Auto) (0-4) /hpf U Hyaline Cast (Auto) (0-5) /lpf U Epithel Cells (Auto) (0-5) /lpf Urine Bacteria (Auto) (Negative) SARS-CoV-2, RNA, NAAT NEGATIVE (NEGATIVE) 07/04/22 07/04/22 Range/Units Unknown Unknown WBC (4.8-10.8) K/ul RBC (3.93-5.22) M/uL Hgb (12.0-16.0) g/dl Hct (34.1-44.9) % MCV (80.0-100.0) fL MCH (25.0-34.0) pg MCHC (32.0-36.0) g/dL RDW Std Deviation (36.4-46.3) fL RDW Coeff of Geeta (11.5-14.5) % Plt Count (130-400) K/uL MPV (9.4-12.3) fL Immature Gran % (Auto) % Neut % (Auto) % Lymph % (Auto) % Carroll % (Auto) % Eos % (Auto) % Baso % (Auto) % Neut # (Auto) (1.4-6.5) K/uL Lymph # (Auto) (1.2-3.4) K/uL [place] # (Auto) (0.24-0.82) K/uL Eos # (Auto) (0-0.50) K/uL Baso # (Auto) (0-0.2) K/uL Immature Gran # (Auto) (0.00-0.02) K/uL Sodium (136-145) mmol/L Potassium (3.5-5.1) mmol/L Chloride (98-107) mmol/L Carbon Dioxide (21-32) mmol/L Anion Gap (3-11) BUN (6-23) mg/dl Creatinine (0.6-1.2) mg/dl Est Cr Clr Drug Dosing ml/min Est GFR ( Amer) ml/min Est GFR (Non-Af Amer) ml/min BUN/Creatinine Ratio (10-20) Glucose (70-99(Fasting)) mg/dl Calcium (8.5-10.1) mg/dl Phosphorus (2.5-4.9) mg/dl Magnesium (1.7-2.4) mg/dl Total Bilirubin (0.2-1.0) mg/dl AST (13-39) U/L ALT (7-52) U/L Alkaline Phosphatase (34-104) U/L Total Protein (6.0-8.3) gm/dl Albumin (3.4-5.0) gm/dl Globulin (2.5-4.0) gm/dl Albumin/Globulin Ratio (0.9-2) TSH 1.093 (0.300-4.500) uIu/ml Urine Color Yellow Urine Appearance Clear (Clear) Urine pH 5.0 (4.5-7.5) Ur Specific [employer] 1.011 (1.000-1.030) Urine Protein Negative (Negative) Urine Glucose (UA) Negative (Negative) Urine Ketones Negative (Negative) Urine Blood 1+ H (Negative) Urine Nitrite Negative (Negative) Urine Bilirubin Negative (Negative) Urine Urobilinogen Negative (Negative) Ur Leukocyte Esterase Negative (Negative) Urine WBC (Auto) 1-5 (0-5) /hpf Urine RBC (Auto) 0-4 (0-4) /hpf U Hyaline Cast (Auto) 0 (0-5) /lpf U Epithel Cells (Auto) >30 H (0-5) /lpf Urine Bacteria (Auto) Negative (Negative) SARS-CoV-2, RNA, NAAT (NEGATIVE) Administered Medications Discontinued Medications Sodium Chloride (Nss 1000ml) 1,000 mls @ 999 mls/hr IV .[id number] ONE Stop: 07/04/22 13:20 Last Infusion: 07/04/22 15:05 Dose: 0 mls/hr Documented By: Admin: 07/04/22 12:40 Dose: 999 mls/hr Documented By: VANNESSA Imaging Data Radiologist's Impression: Abdomen/Pelvis CT 07/04/22 12:[address] WITHOUT CONTRAST CT DOSE: 802.01 mGy.cm HISTORY: History of kidney stone. Possible urinary obstruction. TECHNIQUE: Multiaxial CT images of the abdomen and pelvis were performed without contrast. A dose lowering technique was utilized adhering to the principles of ALARA. COMPARISON STUDY: Abdomen, pelvis, bilateral lower extremity CTA 06/06/2019. Outside hospital abdomen and pelvis CT 04/14/2022. FINDINGS: Mild dependent changes seen at the lung bases. No pneumoperitoneum. No pneumatosis. L4-S1 posterior decompression and fusion with pedicle screws and rods. The hardware appears intact. Severe degenerative disc disease from T12 through L4 is noted. Stable 6 cm hypodense lesion within the right hepatic dome. This is incompletely characters on this noncontrast study but favors a cyst. There are few small gallstones. No gallbladder wall thickening. The spleen, adrenal glands, and pancreas are unremarkable. Normal left kidney. Moderately atrophic right kidney, unchanged. The 5 mm stone within the right ureteropelvic junction on the prior study now resides within the lower pole of the right k idney. No right ureteral calculi. There is a 7 mm calcification within the left deep pelvis on image 314. This could be within the distal left ureter and may account for the mild fullness within the mid to distal left ureter. However, there is no left-sided hydronephrosis. The bladder is unremarkable. The uterus and bilateral adnexa are within normal limits. Suboptimal evaluation for bowel pathology due to the lack of intravenous and oral contrast. However, there is no definite bowel wall thickening or obstruction. Normal appendix. No retroperitoneal lymphadenopathy. Extensive calcified plaque within the normal caliber abdominal aorta and iliac arteries. A superior mesenteric artery stent is noted. IMPRESSION: 1. The 5 mm stone within the right ureteropelvic junction on the prior study now resides within the lower pole of the right kidney. No right ureteral calculi or hydronephrosis. 2. There is a 7 mm calcification within the left deep pelvis. This could represent a nonobstructing distal left ureteral stone or phlebolith. This can be confirmed with follow-up CT urogram. No left-sided hydronephrosis. 3. Cholelithiasis. 4. Mildly atrophic right kidney, unchanged. 5. No bowel wall thickening or obstruction. ACT 112: Negative or not required by law. Electronically signed by: Daniel Lopez M.D. 07/04/2022 1:53 PM Discharge Plan Visit Data Chief Complaint: Abnormal Labs/Diagnostic Testing Stated Complaint: ABNORMAL KIDNEY FUNCTION TESTING ED Provider: Manan Blue Discharge Problem: Weakness, LUCAS (acute kidney injury), Pedal edema, Anemia Patient Disposition: Admitted As Inpatient Condition: Fair Forms Stand Alone Forms: My [facility] Prescriptions Prescriptions: No Action trazodone 100 mg Tablet 100 mg PO HS Qty: 0 citalopram 40 mg Tablet 40 mg PO HS Qty: 0 aspirin 81 mg Tablet,Delayed Release (Dr/Ec) 81 mg PO QAM Qty: 0 hydrocodone-acetaminophen 7.5-325 mg tablet 1 tab PO TID PRN (Reason: Pain) cyclobenzaprine 10 mg tablet 10 mg PO BID PRN (Reason: Muscle spasms) carvedilol phosphate 20 mg capsule, ER multiphase 24 hr 20 mg PO DAILY Rx Instructions: must administer with a meal/food olmesartan 40 mg tablet 40 mg PO DAILY atorvastatin [Lipitor] 40 mg Tablet 40 mg PO PM amlodipine 5 mg Tablet 5 mg PO QAM hydrochlorothiazide 25 mg tablet 50 mg PO DAILY PRN (Reason: Hypertension) omeprazole magnesium [Prilosec OTC] 20 mg Tablet,Delayed Release (Dr/Ec) 40 mg PO BID clopidogrel [Plavix] 75 mg tablet 75 mg PO DAILY Qty: 30 6RF gabapentin 300 mg capsule 300 mg PO TID Referrals Referrals: Karl Howe DO [Primary Care Provider] -
[2022-07-04 12:59] LABS: Basophils # (auto) 0.04 K/uL (0-0.2); Basophils % (auto) 0.5 %; Eosinophils # (auto) 0.38 K/uL (0-0.50); Hematocrit (blood only) 28.9 % (34.1-44.9); Hemoglobin 9.5 g/dl (12.0-16.0); Immature Granulocytes # (auto) 0.06 K/uL (0.00-0.02); Immature Granulocytes % (auto) 0.8 %; Lymphocytes # (auto) 1.85 K/uL (1.2-3.4); Lymphocytes % (auto) 24.2 %; Mean Corpuscular Hemoglobin 33.1 pg (25.0-34.0); Mean Corpuscular Hgb Conc 32.9 g/dL (32.0-36.0); Mean Corpuscular Volume 100.7 fL (80.0-100.0); Mean Platelet Volume 10.9 fL (9.4-12.3); Monocytes # (auto) 1.11 K/uL (0.24-0.82); Monocytes % (auto) 14.5 %; Neutrophils # (auto) 4.19 K/uL (1.4-6.5); Platelet Count 353 K/uL (130-400); RDW Coefficient of Variation 12.7 % (11.5-14.5); RDW Standard Deviation 47.5 fL (36.4-46.3); Red Blood Count 2.87 M/uL (3.93-5.22); White Blood Count 7.63 K/ul (4.8-10.8)
[2022-07-04 13:11] LABS: Appearance Urine Clear (Clear); Bacteria Urine Automated Negative (Negative); Bilirubin Urine Negative (Negative); Blood Urine 1+ (Negative); Cast Urine Automated 0 /lpf (0-5); Color Urine Yellow; Epithelial Cell Urine Auto >30 /lpf (0-5); Glucose Urine UA Negative (Negative); Ketones Urine Negative (Negative); Leukocyte Esterase Urine Negative (Negative); Nitrite Urine Negative (Negative); Protein Urine Negative (Negative); RBC Urine Automated 0-4 /hpf (0-4); Specific Gravity Urine 1.011 (1.000-1.030); Urobilinogen Urine Negative (Negative)
[2022-07-04 13:37] LABS: Albumin Globulin Ratio 1.1 (0.9-2); Albumin Level 3.7 gm/dl (3.4-5.0); BUN Creatinine Ratio 30.2 (10-20); Bilirubin,Total 0.6 mg/dl (0.2-1.0); Calcium 9.3 mg/dl (8.5-10.1); Creatinine Clr Calc Pharmacy 28.6 ml/min; Est GFR (African American) 30.2 ml/min; Globulin 3.3 gm/dl (2.5-4.0); Magnesium 1.9 mg/dl (1.7-2.4); Potassium 4.3 mmol/L (3.5-5.1)
--- NOTE | 2022-07-04 13:55 | CT Scan Report ---
ABDOMEN AND PELVIS CT WITHOUT CONTRAST CT DOSE: 802.01 mGy.cm HISTORY: History of kidney stone. Possible urinary obstruction. TECHNIQUE: Multiaxial CT images of the abdomen and pelvis were performed without contrast. A dose lo wering technique was utilized adhering to the principles of ALARA. COMPARISON STUDY: Abdomen, pelvis, bilateral lower extremity CTA 06/06/2019. Outside hospital abdomen and pelvis CT 04/14/2022. FINDINGS: Mild dependent changes seen at the lung bases. No pneumoperitoneum. No pneumatosis. L4-S1 p osterior decompression and fusion with pedicle screws and rods. The hardware appears intact. Severe d egenerative disc disease from T12 through L4 is noted. Stable 6 cm hypodense lesion within the right hepatic dome. This is incompletely characters on this noncontrast study but favors a cyst. There are few small gallstones. No gallbladder wall thickening. The spleen, adrenal glands, and pancreas are un remarkable. Normal left kidney. Moderately atrophic right kidney, unchanged. The 5 mm stone within th e right ureteropelvic junction on the prior study now resides within the lower pole of the right kidn ey. No right ureteral calculi. There is a 7 mm calcification within the left deep pelvis on image 314 . This could be within the distal left ureter and may account for the mild fullness within the mid to distal left ureter. However, there is no left-sided hydronephrosis. The bladder is unremarkable. The uterus and bilateral adnexa are within normal limits. Suboptimal evaluation for bowel pathology due to the lack of intravenous and oral contrast. However, there is no definite bowel wall thickening or obstruction. Normal appendix. No retroperitoneal lymphadenopathy. Extensive calcified plaque within t he normal caliber abdominal aorta and iliac arteries. A superior mesenteric artery stent is noted. IMPRESSION: 1. The 5 mm stone within the right ureteropelvic junction on the prior study now resides within the l ower pole of the right kidney. No right ureteral calculi or hydronephrosis. 2. There is a 7 mm calcification within the left deep pelvis. This could represent a nonobstructing d istal left ureteral stone or phlebolith. This can be confirmed with follow-up CT urogram. No left-himanshu ed hydronephrosis. 3. Cholelithiasis. 4. Mildly atrophic right kidney, unchanged. 5. No bowel wall thickening or obstruction. ACT 112: Negative or not required by law. Electronically signed by: Daniel Lopez M.D. 07/04/2022 1:53 PM
--- NOTE | 2022-07-04 14:23 | History & Physical Report ---
Date of Service July 04, 2022 Assessment & Plan (1) LUCAS (acute kidney injury): (2) Mesenteric artery stenosis: Plan: - Admit to med surg - Continue on NSS at 125 mL/h, has gotten 1 L in the ER - Creatinine elevated at 2.19, BUN [address] Joya's office from 07/03, today creatinine is 1.89, BUN 57 - Will hold home meds including HCTZ, olmesartan, amlodipine -Underwent angiogram on 06/20/2022 where creatinine was 1.4 at that point in time, ?possible that her kidneys have not recovered since then however was over 2wks ago- Possible that she has underlying CKD and worsening recently. - CT abdomen and pelvis is negative for any acute obstructing stones or other findings today - UA obtained, follow urine culture - Nephrology consult - will obtain urine creatinine and urine osm, urine sodium (3) HTN (hypertension): Plan: - Patient took all of her normally scheduled medications today, continue carvedilol daily - Last dobutamine stress Echo from 2018 shows LVEF 65 to 69%, LV wall thickness is borderline increased, no left ventricular mural thrombus, mild pulmonary regurgitation, no other valvular issues. - Check a 2D echo now - Holding other antihypertensives secondary to avoiding nephrotoxins and renally reducing medications with LUCAS (4) Hyperlipidemia: Plan: -Continue atorvastatin (5) Leg pain: Plan: - Will increase gabapentin to 600 mg TID, was on 300 mg TID prior to today. Pt is also using oxycodone for pain and may continue that prn here - DVT RLE on 07/03 negative - PT/OT consults (6) Anemia: Plan: - Hemoglobin 9.5, appears that her baseline is around 10, check stool guiac, patient denies any known bleeding - Consider iron studies to evaluate - No current indication for transfusion - On aspirin and plavix for SMA stenosis and s/p stent DVT ppx: Teds, scds, on aspirin and plavix CODE: Full code Dispo: from home, likely to remain in the hospital x 1-2 days History of Present Illness Chief Complaint: Abnormal labs, elevated creatinine and BUN Primary Care Provider: Karl Howe, This is a 71-year-old female with PMHx of HTN, HLD, osteoarthritis, SMA occlusion s/p angiogram and stenting on 06/20/22. At that time her Cr. was noted to be slightly elevated at 1.4 and was instructed to hydrate. Upon having her 1 week follow up outpatient labs collected Cr.= 2.9, BUN = 60 compared to her baseline kidney function with creatinine of 1.0 and therefore was sent to the ER. She reports feeling more fatigued and weak since having the angiogram done on Jun 20. She has noticed increased swelling in both of her legs and feels that her skin is tight, so has been taking HCTZ on a daily basis along with her other antihypertensive medications. She had noticed worsening edema in her legs prior to the angiogram and has been taking HCTZ for about 1 month daily. She had right leg ultrasound yesterday in Dr. Joya's office to rule out DVT and was negative. Her legs do hurt and has been using gabapentin and oxycodone for pain. She has been eating and drinking fine. Pt is also taking amlodipine and has for years. She does feel some low pelvis "discomfort", denies any issues with urinating, no dysuria, no hematuria, no increased frequency. Patient reports her last bowel movement was 2 days ago and denies seeing blood in stool or having dark tarry BMs. 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 Her sister and her daughter are present at bedside. Allergies Allergy/AdvReac Type Severity Reaction Status Date / Time oxycodone AdvReac Severe syncope, Verified 07/04/22 14:11 low bp nickel AdvReac Intermediate rash and Verified 07/04/22 14:11 skin turns green Home Medications Medication Instructions Recorded Confirmed Type trazodone 100 mg tablet 100 mg PO HS ##0 09/22/11 07/04/22 History aspirin 81 mg tablet,delayed 81 mg PO QAM ##0 03/30/18 07/04/22 History release citalopram 40 mg tablet 40 mg PO HS ##0 03/30/18 07/04/22 History amlodipine 5 mg tablet 5 mg PO QAM 09/06/18 07/04/22 History atorvastatin 40 mg tablet (Lipitor) 40 mg PO PM 09/06/18 07/04/22 History omeprazole magnesium 20 mg 40 mg PO BID 06/30/19 07/04/22 History tablet,delayed release (Prilosec OTC) clopidogrel 75 mg tablet (Plavix) 75 mg PO DAILY #30 tabs 07/08/19 07/04/22 Rx carvedilol phosphate 20 mg 20 mg PO DAILY 07/03/22 07/04/22 History capsule,[id number] multiphase cyclobenzaprine 10 mg tablet 10 mg PO BID PRN Muscle spasms 07/03/22 07/04/22 History hydrochlorothiazide 25 mg tablet 50 mg PO DAILY PRN Hypertension 07/03/22 07/04/22 History hydrocodone 7.5 mg-acetaminophen 1 tab PO TID PRN Pain 07/03/22 07/04/22 History 325 mg tablet olmesartan 40 mg tablet 40 mg PO DAILY 07/03/22 07/04/22 History gabapentin 300 mg capsule 300 mg PO TID 07/04/22 07/04/22 History Past Med/Surg History Medical History Carotid artery stenosis Chronic back pain Diverticular disease Gout HTN (hypertension) Hyperlipidemia Hypertension Mesenteric artery stenosis Neck pain Surgical History H/O left cataract extraction 04/29/18-2mg IV versed given without issues History of arthroplasty of right knee History of arthroscopy chencho knee History of back surgery History of bilateral tubal ligation History of carpal tunnel surgery right History of CEA (carotid endarterectomy) History of colonoscopy w/ polypectomy History of endoscopic sinus surgery Family History Mother Family history of early CAD Social History Smoking Status: Never smoker Second Hand Exposure: No; Hx Alcohol Use: No Hx Substance Use: Yes (hydrocodone) Preferred Language: Thai Communication Ability: Effective Visual Impairment: No Limitations Remarketing Manager Required: No Beliefs That Will Affect Care: None Current Living Situation: Alone Feels Safe at Home: Yes Assistive Devices: Denture - Upper Review of Systems Review of Systems: Constitutional: No fever, sweats or chills Eyes: No diplopia, no worsening or blurred vision ENT: normal hearing, no trouble swallowing Respiratory: No cough, sputum, dyspnea at rest or on exertion Cardiovascular: No chest pain, tightness or palpitations Abdomen: No pain, nausea, vomiting, diarrhea or constipation Musculoskeletal: No joint pain, calf pain, + both lower leg swelling as per HPI Neurologic: + Generalized weakness, no numbness/tingling, or balance problems Psychiatric: No anxiety or depression Skin: No rash or itch Physical Exam Physical Exam: General: awake, alert, no apparent distress, patient is well- kept: Appears fixed, wearing make-up, nails are done, toenails are painted Head: Normocephalic, atraumatic ENT: PERRL, EOMI, no pharyngeal exudate, mucous membranes moist Chest: Clear to auscultation, on room air, no adventitious breath sounds Cardiac: Regular rate and rhythm, no murmur, no JVD, normal peripheral pulses, good capillary refill Abdominal: NABS x 4 quadrants, soft, nondistended, nontender to palpation, no rebound or guarding Extremities: 2+ peripheral edema of the RLE, 1+ in LLE, no erythema, calfs nontender to palpation Psych: Normal mood and affect Neuro: AAO x 3, strength intact bilaterally and rated 5/5, no motor deficits, speech is clear, no peripheral sensory deficits Results & Data Results & Data ([facility]) Vital Signs (Past 12 Hours) Vital Signs Temp Pulse Pulse Resp BP BP Pulse Ox 07/04/22 11:56 68 20 212/68 H 97 07/04/22 12:16 36.5 C 71 16 156/56 H 95 O2 Del Method 07/04/22 11:56 Room Air 07/04/22 12:16 Room Air Laboratory Results 07/04/22 07/04/22 07/04/22 Unknown Unknown Unknown WBC RBC Hgb Hct MCV MCH MCHC RDW Std Deviation RDW Coeff of Geeta Plt Count MPV Immature Gran % (Auto) Neut % (Auto) Lymph % (Auto) [place] % (Auto) Eos % (Auto) Baso % (Auto) Neut # (Auto) Lymph # (Auto) [place] # (Auto) Eos # (Auto) Baso # (Auto) Immature Gran # (Auto) Sodium 136 Potassium 4.3 Chloride 101 Carbon Dioxide 26 Anion Gap 9 BUN 57 H Creatinine 1.89 H Est Cr Clr Drug Dosing 28.6 Est GFR ( Amer) 30.2 Est GFR (Non-Af Amer) 26.0 BUN/Creatinine Ratio 30.2 H Glucose 109 H Calcium 9.3 Phosphorus 4.0 Magnesium 1.9 Total Bilirubin 0.6 AST 14 ALT 16 Alkaline Phosphatase 80 Total Protein 7.0 Albumin 3.7 Globulin 3.3 Albumin/Globulin Ratio 1.1 TSH 1.093 Urine Color Yellow Urine Appearance Clear Urine pH 5.0 Ur Specific [place] 1.011 Urine Protein Negative Urine Glucose (UA) Negative Urine Ketones Negative Urine Blood 1+ H Urine Nitrite Negative Urine Bilirubin Negative Urine Urobilinogen Negative Ur Leukocyte Esterase Negative Urine WBC (Auto) 1-5 Urine RBC (Auto) 0-4 U Hyaline Cast (Auto) 0 U Epithel Cells (Auto) >30 H Urine Bacteria (Auto) Negative 07/04/22 Unknown WBC 7.63 RBC 2.87 L Hgb 9.5 L Hct 28.9 L MCV 100.7 H MCH 33.1 MCHC 32.9 RDW Std Deviation 47.5 H RDW Coeff of Geeta 12.7 Plt Count 353 MPV 10.9 Immature Gran % (Auto) 0.8 Neut % (Auto) 55.0 Lymph % (Auto) 24.2 [place] % (Auto) 14.5 Eos % (Auto) 5.0 Baso % (Auto) 0.5 Neut # (Auto) 4.19 Lymph # (Auto) 1.85 [place] # (Auto) 1.11 H Eos # (Auto) 0.38 Baso # (Auto) 0.04 Immature Gran # (Auto) 0.06 H Sodium Potassium Chloride Carbon Dioxide Anion Gap BUN Creatinine Est Cr Clr Drug Dosing Est GFR ( Amer) Est GFR (Non-Af Amer) BUN/Creatinine Ratio Glucose Calcium Phosphorus Magnesium Total Bilirubin AST ALT Alkaline Phosphatase Total Protein Albumin Globulin Albumin/Globulin Ratio TSH Urine Color Urine Appearance Urine pH Ur Specific [place] Urine Protein Urine Glucose (UA) Urine Ketones Urine Blood Urine Nitrite Urine Bilirubin Urine Urobilinogen Ur Leukocyte Esterase Urine WBC (Auto) Urine RBC (Auto) U Hyaline Cast (Auto) U Epithel Cells (Auto) Urine Bacteria (Auto) Diagnostic Findings Abdomen/Pelvis CT 07/04/22 12:[address] WITHOUT CONTRAST CT DOSE: 802.01 mGy.cm HISTORY: History of kidney stone. Possible urinary obstruction. TECHNIQUE: Multiaxial CT images of the abdomen and pelvis were performed without contrast. A dose lowering technique was utilized adhering to the principles of ALARA. COMPARISON STUDY: Abdomen, pelvis, bilateral lower extremity CTA 06/06/2019. Outside hospital abdomen and pelvis CT 04/14/2022. FINDINGS: Mild dependent changes seen at the lung bases. No pneumoperitoneum. No pneumatosis. L4-S1 posterior decompression and fusion with pedicle screws and rods. The hardware appears intact. Severe degenerative disc disease from T12 through L4 is noted. Stable 6 cm hypodense lesion within the right hepatic dome. This is incompletely characters on this noncontrast study but favors a cyst. There are few small gallstones. No gallbladder wall thickening. The spleen, adrenal glands, and pancreas are unremarkable. Normal left kidney. Moderately atrophic right kidney, unchanged. The 5 mm stone within the right ureteropelvic junction on the prior study now resides within the lower pole of the right kidney. No right ureteral calculi. There is a 7 mm calcification within the left deep pelvis on image 314. This could be within the distal left ureter and may account for the mild fullness within the mid to distal left ureter. However, there is no left-sided hydronephrosis. The bladder is unremarkable. The uterus and bilateral adnexa are within normal limits. Suboptimal evaluation for bowel pathology due to the lack of intravenous and oral contrast. However, there is no definite bowel wall thickening or obstruction. Normal appendix. No retroperitoneal lymphadenopathy. Extensive calcified plaque within the normal caliber abdominal aorta and iliac arteries. A superior mesenteric artery stent is noted. IMPRESSION: 1. The 5 mm stone within the right ureteropelvic junction on the prior study now resides within the lower pole of the right kidney. No right ureteral calculi or hydronephrosis. 2. There is a 7 mm calcification within the left deep pelvis. This could represent a nonobstructing distal left ureteral stone or phlebolith. This can be confirmed with follow-up CT urogram. No left-sided hydronephrosis. 3. Cholelithiasis. 4. Mildly atrophic right kidney, unchanged. 5. No bowel wall thickening or obstruction. ACT 112: Negative or not required by law. Electronically signed by: Daniel Lopez M.D. 07/04/2022 1:53 PM ECG Additional Comments: No EKG completed today for review Code Status & VTE Plan Code Status Full code- discussed with the patient and her sister and daughter at bedside Supervising Physician Co-Signing Physician Notes I have seen and examined the patient and have discussed the case with the provider above. I agree with the assessment and plan as stated with the following exceptions. Ms. Hare presents with acute renal failure in the setting of daily HCTZ use over the past month and contrast administration for an angiogram of her SMA stent in early Jun. She has no labs available for review since 2018 when her kidney function was normal. Then she had a pre-procedure assessment of her creatinine (06/20) which was 1.5. She received izabella-procedure fluids and repeat check on 06/24 was 1.6. Today she is 1.89 and she reports leg swelling and leg pain especially on the plantar surface of her feet causing her pain with walking. She takes hydrocodone and gabapentin for chronic back pain and has been using this. Denies any NSAID use. She denies any shortness of britni ath and states that she is not dehydrated. She has not been excessively drinking water either. She is euvolemic on exam and her vitals are stable. She denies chest pain and reports a chronic progressive feeling of low energy. She reports that she was started on iron supplementation for anemia. She has no bleeding issues and is a post-menopausal female. She reports no history of colonoscopy and she was advised to pursue this as an outpatient. She appears comfortable and in NAD. She is oxygenating well on room air. Cardiac exam reveals regular rate and rhythm and S1/2 heard with a 3/6 SIMRAN across her precordium, and she has no evidence of lower extremity edema by my exam. She also just removed tight stockings when I was coming into the room. Lungs are clear to auscultation throughout. She is euvolemic. Abdomen is soft, NTND. Workup today reveals H/H 9.5/29, BUN is 57, creat is 1.89. Thyroid function is normal. UA reveals no infection--further urine studies are pending. A CT abd pel Overall, Ms. Hare is being admitted for acute renal failure with a possible developed CKD in the background. She has also been on an ARB and HCTZ with regular thiazide use daily over the last month and had an angiogram two weeks ago. She currently has a very high blood pressure 180-200 which may be a result of leg pain, or uncontrolled HTN at baseline possibly. For now will hold AC E/HCTZ and obtain urine studies. Will not give any IVF but will let her eat and drink to thirst and just follow the trend of the creatinine in the morning. Will avoid contrast now and renally dose medications as needed. Will treat BP with parenteral antihypertensives as needed along with pain meds until her pain is better controlled, and continue her coreg. Will hold her amlodipine as this is known to cause LE swelling. Will give TEDs and SCDs and increase her gabapentin to help wtih comfort. She continues on hydrocodone chronically for her back, also. Will consult nephrology for recs and continue her on a heart healthy diet. Will order an echo to evaluate her murmur. DO Boby (1) HTN (hypertension) Hypertension type: unspecified Qualified Code(s): I10 - Essential (primary) hypertension
[2022-07-04] MEDS ORDERED: LABETALOL HCL IV 5 MG/ML 20ML IV STA ×2 (17:14→18:44)
[2022-07-04] MEDS ORDERED: GABAPENTIN 600 MG TAB PO STA (17:31)
[2022-07-04] MEDS ORDERED: HYDROCODONE/ACETAMOPHEN 5/325MG TAB PO STA (18:20)
[2022-07-04] MEDS ORDERED: ONDANSETRON INJ 2 MG/ML 2 ML VIAL IV PRN (18:34)
[2022-07-04] MEDS ORDERED: SODIUM CHLORIDE 0.9% 500 ML IV SCH (18:34)
[2022-07-04] MEDS ORDERED: HYDROCODONE/ACETAMINOPHEN 7.5/325MG TAB PO PRN (18:34)
[2022-07-04] MEDS ORDERED: GABAPENTIN 600 MG TAB PO SCH (21:00)
[2022-07-04] MEDS: traZODone HCL 100 MG TAB PO SCH (21:16)
[2022-07-04] MEDS: CITALOPRAM 40 MG TAB PO SCH (21:16)
[2022-07-04] MEDS: PANTOprazole 40 MG TAB PO SCH (21:16)
[2022-07-04] MEDS: ATORVASTATIN 40 MG TAB PO SCH (21:16)
[2022-07-04 23:16] LABS: Creatinine Urine Random 55.5 mg/dl
--- NOTE | 2022-07-04 23:58 | XRay Report ---
SINGLE VIEW CHEST CLINICAL HISTORY: Lower extremity edema. FINDINGS: An AP, portable, upright chest radiograph is compared to study dated 07/01/2019. The examin ation is degraded by portable technique, apical lordotic positioning, and patient rotation. The hear t is mildly enlarged noting atherosclerotic calcification of the thoracic aorta. The pulmonary vascul ature is noncongested. Chronic interstitial thickening is similar to previous. The lungs and pleural spaces are clear noting mild dependent atelectasis. No pneumothorax is seen. The bony thorax is gross ly intact. Advanced arthritic change is seen in the left shoulder. Superior subluxation of both humer al heads suggests chronic bilateral rotator cuff injuries. There is chronic deformity of the right pr oximal humerus. IMPRESSION: Mild cardiomegaly with no acute cardiopulmonary abnormality identified. ACT 112: Negative or not required by law. Electronically signed by: Manan Pinto M.D. 07/04/2022 11:56 PM
[2022-07-05 04:53] LABS: Basophils # (auto) 0.04 K/uL (0-0.2); Basophils % (auto) 0.7 %; Eosinophils # (auto) 0.26 K/uL (0-0.50); Eosinophils % (auto) 4.2 %; Hematocrit (blood only) 24.2 % (34.1-44.9); Hemoglobin 7.9 g/dl (12.0-16.0); Immature Granulocytes # (auto) 0.02 K/uL (0.00-0.02); Immature Granulocytes % (auto) 0.3 %; Lymphocytes # (auto) 1.46 K/uL (1.2-3.4); Lymphocytes % (auto) 23.8 %; Mean Corpuscular Hemoglobin 33.6 pg (25.0-34.0); Mean Corpuscular Hgb Conc 32.6 g/dL (32.0-36.0); Mean Platelet Volume 10.5 fL (9.4-12.3); Monocytes # (auto) 0.91 K/uL (0.24-0.82); Monocytes % (auto) 14.8 %; Neutrophils # (auto) 3.45 K/uL (1.4-6.5); Neutrophils % (auto) 56.2 %; Platelet Count 286 K/uL (130-400); RDW Coefficient of Variation 12.9 % (11.5-14.5); RDW Standard Deviation 47.9 fL (36.4-46.3); Red Blood Count 2.35 M/uL (3.93-5.22); White Blood Count 6.14 K/ul (4.8-10.8)
[2022-07-05 05:05] LABS: Base Excess ABG -0.8 mEq/L (-9-1.8); HCO3 ABG 25 mmol/L (19-24); Oxygen Saturation ABG > 100.0 % (90-95); PCO2 ABG 44 mmHg (35-46); PO2 ABG 94 mmHg (80-95); pH ABG 7.36 (7.35-7.45)
[2022-07-05 05:10] LABS: BUN Creatinine Ratio 26.8 (10-20); Calcium 8.7 mg/dl (8.5-10.1); Est GFR (African American) 28.5 ml/min; Est GFR (Non-African American) 24.6 ml/min; Magnesium 1.9 mg/dl (1.7-2.4); Potassium 4.6 mmol/L (3.5-5.1)
[2022-07-05 05:14] LABS: Partial Thromboplastin Ratio 1.1; Partial Thromboplastin Time 29.5 Seconds (21.0-31.0)
[2022-07-05] MEDS ORDERED: MAGNESIUM SULFATE / D5W 1 GM/100 ML BAG IV ONE (05:24)
[2022-07-05 05:26] LABS: RBC Morphology Unremarkable
[2022-07-05 05:38] LABS: Allen Test POS (Pos)
--- NOTE | 2022-07-05 06:57 | XRay Report ---
XR chest 1V portable CLINICAL HISTORY: low o2 COMPARISON STUDY: Chest radiograph July 04, 2022. FINDINGS: Osteoarthritis of the shoulders is incidentally noted. No pneumothorax or pleural effusion is present. No consolidation to suggest pneumonia. Cardiomediastinal silhouette is stable. Appearance of the chest is unchanged. IMPRESSION: No acute cardiopulmonary findings. ACT 112: Negative or not required by law. Electronically signed by: Torey Rouse M.D. 07/05/2022 6:56 AM
[2022-07-05] MEDS ORDERED: ACETAMINOPHEN 500 MG TAB PO PRN (07:59)
[2022-07-05] MEDS: PANTOprazole 40 MG TAB PO SCH ×2 (08:04→20:55)
[2022-07-05] MEDS: carvediloL 12.5 MG TAB PO SCH ×2 (08:05→20:57)
[2022-07-05] MEDS: ASPIRIN 81 MG ECTAB PO SCH (08:05)
[2022-07-05] MEDS: CLOPIDOGREL BISULFATE 75 MG TAB PO SCH (08:05)
[2022-07-05 08:22] LABS: Reticulocyte % 2.5 % (0.5-2.0); Reticulocytes # 0.07 10^6/uL (0.02-0.10)
[2022-07-05 08:46] LABS: Ferritin 168.4 ng/ml (8-388)
[2022-07-05 08:53] LABS: Vitamin B12 237 pg/ml (180-914)
[2022-07-05 08:57] LABS: Vitamin D, 25 Hydrox 20.9 ng/ml (30-100)
[2022-07-05] MEDS: GABAPENTIN 600 MG TAB PO SCH ×3 (09:12→20:55)
[2022-07-05] MEDS ORDERED: predniSONE 20 MG TAB PO STA (10:38)
--- NOTE | 2022-07-05 11:00 | Nephrology Consultation ---
Date of Consultation July 05, 2022 Assessment & Plan (1) LUCAS (acute kidney injury): Her baseline creatinine is unknown, she may having a base line CKD, given history of hypertension and mesenteric artery stenosis. She had angiogram done in early June and continued with LELAND and hydrochlorothiazide. Urine studies are consistent with ATN. She still making urine, looks comfortable, oral intake has been good and she has already received 1.5 L of normal saline. Hemoglobin is in the low normal range and she is awaiting colonoscopy, today's drop likely dilutional. -Conservative management -No more IV fluids, continue to encourage oral intake -Withhold hydrochlorothiazide and LELAND, okay with amlodipine, carvedilol, can add hydralazine as needed. -Nonurgent ultrasound scan of the kidneys. (2) HTN (hypertension): - As above (3) Leg pain: (4) Mesenteric artery stenosis: History of Present Illness Reason for Consultation: Acute kidney injury Attending Physician: Geovanni Harkins MD History of Present Illness 71-year-old, with unknown CKD baseline who presented with LUCAS(BUNs/creatinine 53/1.89). Past medical history of HTN, HLD, OA, SMA occlusion SP angiogram on 06/20/2022. Her serum creatinine preangiogram was 1.4(she received hydration as per H&P), 1 week postprocedure her creatinine was found to be raised at 2.9, BUN 60. She was sent to ER for further follow-up. She has been on hydrochlorothiazide , amlodipine and LELAND for hypertension which she continued post angiogram, she complained of leg pain and swelling, Doppler studies were negative for DVT. Denies any other symptom. Bilateral pedal edema on exam but no shortness of breath .Urine output has been at baseline, 600 mils as per records in the last 24 hours. Denies NSAID use. Hemoglobin was in the low normal range, denies any external bleeding, awaiting colonoscopy. Allergies Allergy/AdvReac Type Severity Reaction Status Date / Time oxycodone AdvReac Severe syncope, Verified 07/04/22 14:11 low bp nickel AdvReac Intermediate rash and Verified 07/04/22 14:11 skin turns green Home Medications Medication Instructions Recorded Confirmed Type trazodone 100 mg tablet 100 mg PO HS ##0 09/22/11 07/04/22 History aspirin 81 mg tablet,delayed 81 mg PO QAM ##0 03/30/18 07/04/22 History release citalopram 40 mg tablet 40 mg PO HS ##0 03/30/18 07/04/22 History amlodipine 5 mg tablet 5 mg PO QAM 09/06/18 07/04/22 History atorvastatin 40 mg tablet (Lipitor) 40 mg PO PM 09/06/18 07/04/22 History omeprazole magnesium 20 mg 40 mg PO BID 06/30/19 07/04/22 History tablet,delayed release (Prilosec OTC) clopidogrel 75 mg tablet (Plavix) 75 mg PO DAILY #30 tabs 07/08/19 07/04/22 Rx carvedilol phosphate 20 mg 20 mg PO DAILY 07/03/22 07/04/22 History capsule,[id number] multiphase cyclobenzaprine 10 mg tablet 10 mg PO BID PRN Muscle spasms 07/03/22 07/04/22 History hydrochlorothiazide 25 mg tablet 50 mg PO DAILY PRN Hypertension 07/03/22 07/04/22 History hydrocodone 7.5 mg-acetaminophen 1 tab PO TID PRN Pain 07/03/22 07/04/22 History 325 mg tablet olmesartan 40 mg tablet 40 mg PO DAILY 07/03/22 07/04/22 History gabapentin 300 mg capsule 300 mg PO TID 07/04/22 07/04/22 History Patient History Medical History Carotid artery stenosis Chronic back pain Diverticular disease Gout HTN (hypertension) Hyperlipidemia Hypertension Mesenteric artery stenosis Neck pain Surgical History H/O left cataract extraction 04/29/18-2mg IV versed given without issues History of arthroplasty of right knee History of arthroscopy chencho knee History of back surgery History of bilateral tubal ligation History of carpal tunnel surgery right History of CEA (carotid endarterectomy) History of colonoscopy w/ polypectomy History of endoscopic sinus surgery Family History Mother Family history of early CAD Social History Smoking Status: Never smoker Second Hand Exposure: No; Hx Alcohol Use: No Hx Substance Use: Yes (hydrocodone) Preferred Language: Romansh Communication Ability: Effective Visual Impairment: No Limitations Flight Readiness Technician Required: No Beliefs That Will Affect Care: None Current Living Situation: Alone Other Information That Helps Us Care for You: No Feels Safe at Home: Yes Safety Concerns: Feels Safe At This Time Assistive Devices: Denture - Upper Review of Systems Review of Systems: Constitutional: No fever, sweats or chills Respiratory: No cough, sputum, dyspnea at rest or on exertion Cardiovascular: No chest pain, tightness or palpitations Abdomen: No pain, nausea, vomiting, diarrhea or constipation Musculoskeletal: No joint pain, calf pain, + both lower leg swelling as per HPI Neurologic: + Generalized weakness, no numbness/tingling, or balance problems Physical Exam Physical Exam: General: awake, alert, no apparent distress Head: Normocephalic, atraumatic ENT: PERRL, EOMI, no pharyngeal exudate, mucous membranes moist Chest: Clear to auscultation, on room air, no adventitious breath sounds Cardiac: Regular rate and rhythm, no murmur, no JVD, Abdominal: NABS x 4 quadrants, soft, nondistended Extremities: 2+ peripheral edema of the RLE, 1+ in LLE, no erythema, calfs nontender to palpation Psych: Normal mood and affect Neuro: AAO x 3s Results & Data ([facility]) Vital Signs (Past 12 Hours) Vital Signs Temp Pulse Pulse Resp BP Pulse Ox O2 Del Method 07/05/22 06:14 64 07/05/22 08:00 Nasal Cannula 07/05/22 07:45 36.8 C 66 18 158/61 H 93 Room Air 07/05/22 04:35 36.7 C 65 18 139/54 L 96 Nasal Cannula 07/05/22 03:49 83 L Room Air 07/05/22 03:28 36.6 C 66 18 144/58 H 95 Room Air 07/04/22 23:46 36.5 C 60 18 134/51 L 95 Room Air O2 Flow Rate 07/05/22 06:14 07/05/22 08:00 3 07/05/22 07:45 07/05/22 04:35 3 07/05/22 03:49 07/05/22 03:28 07/04/22 23:46 Laboratory Results 07/05/22 04:32 07/05/22 04:32 (1) HTN (hypertension) Hypertension type: unspecified Qualified Code(s): I10 - Essential (primary) hypertension
--- NOTE | 2022-07-05 12:11 | Ultrasound Report ---
RENAL ULTRASOUND CLINICAL HISTORY: nimesh/ ckd COMPARISON STUDY: CT of the abdomen and pelvis July 04, 2022. TECHNIQUE: Sonography of the kidneys and the urinary bladder was performed. FINDINGS: There is no hydronephrosis. The right renal and possible distal left ureteral calculi shown on prior CT are not evident by sonography. Marked right renal atrophy is present. The right kidney m easures 8.7 cm in maximal dimension and the left measures 10.8 cm. Ureteral jets were not visualized. IMPRESSION: 1. No hydronephrosis. 2. Marked right renal atrophy. ACT 112: Negative or not required by law. Electronically signed by: Torey Rouse M.D. 07/05/2022 12:09 PM
[2022-07-05] MEDS: HYDROCODONE/ACETAMOPHEN 5/325MG TAB PO PRN (13:43)
--- NOTE | 2022-07-05 14:15 | Hospitalist Progress Note ---
Date of Service July 05, 2022 Assessment & Plan (1) LUCAS (acute kidney injury): (2) Leg pain: Plan: - DVT RLE on 07/03 negative 07/04 likely from gout on clinical exam trial of prednisone 40mg po daily x 3-5 days PRN [place] for pain cannot give NSAIDs, Tramadol (3) Mesenteric artery stenosis: Plan: per admitting [facility] notes: - Continue on NSS at 125 mL/h, has gotten 1 L in the ER - Creatinine elevated at 2.19, BUN [address] Joya's office from 07/03, today creatinine is 1.89, BUN 57 - Will hold home meds including HCTZ, olmesartan, amlodipine -Underwent angiogram on 06/20/2022 where creatinine was 1.4 at that point in time, ?possible that her kidneys have not recovered since then however was over 2wks ago- Possible that she has underlying CKD and worsening recently. - CT abdomen and pelvis is negative for any acute obstructing stones or other findings today - UA obtained, follow urine culture - Nephrology consult - will obtain urine creatinine and urine osm, urine sodium 07/04: likely ATN from IV contrast, in the setting of HCTZ, Losartan use Renal US: noted crea 1.8 to 1.9 Nephro consulted. hold off on IV fluids for now monitor (4) HTN (hypertension): Plan: - Patient took all of her normally scheduled medications today, continue carvedilol daily - Last dobutamine stress Echo from 2019 shows LVEF 65 to 69%, LV wall thickness is borderline increased, no left ventricular mural thrombus, mild pulmonary regurgitation, no other valvular issues. - Check a 2D echo now - Holding other antihypertensives secondary to avoiding nephrotoxins and renally reducing medications with LUCAS 07/04 Echo: Gr 1 Diastolic Dysfunction resume usual Amlodipine, Carvedilol Hold HCTZ, losartan Monitor most (5) Hyperlipidemia: Plan: -Continue atorvastatin (6) Anemia: Plan: - Hemoglobin 9.5, appears that her baseline is around 10, check stool guiac, patient denies any known bleeding - Consider iron studies to evaluate - No current indication for transfusion - On aspirin and plavix for SMA stenosis and s/p stent Hemoglobin from 9.5, currently 7.9 Monitor closely DVT ppx: Teds, scds, on aspirin and plavix CODE: Full code Dispo: from home, likely to remain in the hospital x 1-2 days Admission and Anticipated Discharge Date Admission Date: July 04, 2022 Subjective ff up for acute renal failure, etc seen resting in bed, comfortable states she has significant RLE pain, mostly on the R ankle also has L ankle pain but less states she is voiding fine no dyspnea, abdominal pain ,fever/chills no chest pain, dyspnea, palpitations, dizziness no other symptoms Review of Systems Review of Systems: all noted and negative except for above Physical Exam Physical Exam: General- oriented x 3, not in distress, speaks in sentences with no effort or accessory muscle use Head- atraumatic Eyes- PERRL, EOMI, anicteric ENT- oropharynx clear Neck- supple, no JVD, no adenopathy, no thyromegaly; carotids +2/2, no bruits appreciated Lungs- clear to auscultation bilaterally, no rales/wheezes Heart- normal rate, regular rhythm; no murmur, no gallop, no rub appreciated Abdomen- normal bowel sounds, nondistended, soft, nontender, no masses or hepatosplenomegaly Extremities- RLE: mild edema, no erythema, no warmth, (+) significant tenderness on the R ankle LLE: no edema/warmth/erythema, (+) tenderness on the L ankle, significant good pulses BL Neuro- alert, oriented x 3; CN 2-12 grossly intact; motor 5/5 bilaterally;sensation 100% on all extremities; no other gross focal neurologic deficits Skin- warm & dry Results & Data Results & Data ([facility]) Vital Signs (Past 12 Hours) Vital Signs Temp Pulse Pulse Resp BP Pulse Ox O2 Del Method 07/05/22 11:17 36.7 C 58 L 17 141/52 H 97 Room Air 07/05/22 06:14 64 07/05/22 08:00 Nasal Cannula 07/05/22 07:45 36.8 C 66 18 158/61 H 93 Room Air 07/05/22 04:35 36.7 C 65 18 139/54 L 96 Nasal Cannula 07/05/22 03:49 83 L Room Air 07/05/22 03:28 36.6 C 66 18 144/58 H 95 Room Air O2 Flow Rate 07/05/22 11:17 07/05/22 06:14 07/05/22 08:00 3 07/05/22 07:45 07/05/22 04:35 3 07/05/22 03:49 07/05/22 03:28 all noted and reviewed including below (1) HTN (hypertension) Hypertension type: unspecified Qualified Code(s): I10 - Essential (primary) hypertension
[2022-07-05] MEDS: amLODIPine BESYLATE 5 MG TAB PO SCH (14:40)
[2022-07-05] MEDS: ATORVASTATIN 40 MG TAB PO SCH (20:55)
[2022-07-05] MEDS: CITALOPRAM 40 MG TAB PO SCH (20:57)
[2022-07-05] MEDS: traZODone HCL 100 MG TAB PO SCH (20:58)
[2022-07-06 07:44] LABS: Basophils # (auto) 0.02 K/uL (0-0.2); Basophils % (auto) 0.2 %; Eosinophils # (auto) 0.01 K/uL (0-0.50); Eosinophils % (auto) 0.1 %; Hematocrit (blood only) 26.9 % (34.1-44.9); Hemoglobin 8.8 g/dl (12.0-16.0); Immature Granulocytes # (auto) 0.05 K/uL (0.00-0.02); Immature Granulocytes % (auto) 0.6 %; Lymphocytes # (auto) 0.94 K/uL (1.2-3.4); Lymphocytes % (auto) 11.6 %; Mean Corpuscular Hemoglobin 33.1 pg (25.0-34.0); Mean Corpuscular Hgb Conc 32.7 g/dL (32.0-36.0); Mean Corpuscular Volume 101.1 fL (80.0-100.0); Mean Platelet Volume 11.1 fL (9.4-12.3); Monocytes # (auto) 0.85 K/uL (0.24-0.82); Monocytes % (auto) 10.5 %; Neutrophils # (auto) 6.25 K/uL (1.4-6.5); Platelet Count 317 K/uL (130-400); RDW Coefficient of Variation 12.3 % (11.5-14.5); RDW Standard Deviation 45.2 fL (36.4-46.3); Red Blood Count 2.66 M/uL (3.93-5.22); White Blood Count 8.12 K/ul (4.8-10.8)
[2022-07-06 08:07] LABS: BUN Creatinine Ratio 35.5 (10-20); Creatinine Clr Calc Pharmacy 34.5 ml/min; Est GFR (African American) 38.4 ml/min; Est GFR (Non-African American) 33.1 ml/min; Potassium 4.4 mmol/L (3.5-5.1)
[2022-07-06] MEDS: GABAPENTIN 600 MG TAB PO SCH ×3 (08:51→20:06)
[2022-07-06] MEDS: carvediloL 12.5 MG TAB PO SCH ×2 (08:51→20:05)
[2022-07-06] MEDS: ASPIRIN 81 MG ECTAB PO SCH (08:52)
[2022-07-06] MEDS: CLOPIDOGREL BISULFATE 75 MG TAB PO SCH (08:52)
[2022-07-06] MEDS: PANTOprazole 40 MG TAB PO SCH ×2 (08:53→20:04)
[2022-07-06] MEDS: HYDROCODONE/ACETAMOPHEN 5/325MG TAB PO PRN (08:54)
--- NOTE | 2022-07-06 09:20 | Nephrology Progress Note ---
Date of Service July 06, 2022 Assessment & Plan (1) LUCAS (acute kidney injury): Plan: Her baseline creatinine is unknown, she may having a base line CKD, given hist ory of hypertension and mesenteric artery stenosis. She had angiogram done in early June and continued with LELAND and hydrochlorothiazide. Urine studies are consistent with ATN, which is resolving, Cr down to 1.55 today She still making urine, looks comfortable, oral intake has been good - USS shows small right kidney, she has likley atherosclerotic renal disease and baseline CKD. -Conservative management -continue to encourage oral intake -Withhold hydrochlorothiazide and LELAND, okay with amlodipine, carvedilol, can add hydralazine as needed. - Will need non -urgent f/u with nephrology after discharge. . (2) HTN (hypertension): Plan: - As above (3) Leg pain: (4) Mesenteric artery stenosis: Admission and Anticipated Discharge Date Admission Date: July 04, 2022 Subjective seen resting in bed, comfortable c/o RLE pain, Review of Systems Review of Systems: Comfortable no dyspnea, abdominal pain ,fever/chills Physical Exam Physical Exam: General: awake, alert, no apparent distress Head: Normocephalic, atraumatic ENT: PERRL, EOMI, no pharyngeal exudate, mucous membranes moist Chest: Clear to auscultation, on room air, no adventitious breath sounds Cardiac: Regular rate and rhythm, no murmur, no JVD, Abdominal: NABS x 4 quadrants, soft, nondistended Extremities: 2+ peripheral edema of the RLE, 1+ in LLE, no erythema, calfs nontender to palpation Psych: Normal mood and affect Neuro: AAO x 3s Results & Data ([facility]) Vital Signs (Past 12 Hours) Vital Signs Temp Pulse Pulse Resp BP Pulse Ox O2 Del Method 07/06/22 07:52 36.7 C 58 L 17 169/56 H 95 Room Air 07/06/22 03:49 36.6 C 64 18 151/58 H 96 Nasal Cannula 07/05/22 22:07 64 07/05/22 23:34 36.6 C 63 16 146/54 H 92 Nasal Cannula O2 Flow Rate 07/06/22 07:52 07/06/22 03:49 2.0 07/05/22 22:07 07/05/22 23:34 1 Laboratory Results 07/06/22 06:13 07/06/22 06:13 (1) HTN (hypertension) Hypertension type: unspecified Qualified Code(s): I10 - Essential (primary) hypertension
[2022-07-06] MEDS: amLODIPine BESYLATE 5 MG TAB PO SCH (09:31)
[2022-07-06] MEDS ORDERED: amLODIPine BESYLATE 5 MG TAB PO ONE (12:30)
[2022-07-06] MEDS ORDERED: predniSONE 20 MG TAB PO STA (14:30)
--- NOTE | 2022-07-06 19:19 | Hospitalist Progress Note ---
Date of Service July 06, 2022 Delayed entry Date of service per above Assessment & Plan (1) LUCAS (acute kidney injury): (2) Leg pain: Plan: - DVT RLE on 07/03 negative 07/06 likely from gout on clinical exam trial of prednisone 40mg po daily x 3-5 days PRN [place] for pain cannot give NSAIDs, Tramadol Improving Monitor closely (3) Mesenteric artery stenosis: Plan: per admitting [facility] notes: - Continue on NSS at 125 mL/h, has gotten 1 L in the ER - Creatinine elevated at 2.19, BUN [address] Joya's office from 07/03, today creatinine is 1.89, BUN 57 - Will hold home meds including HCTZ, olmesartan, amlodipine -Underwent angiogram on 06/20/2022 where creatinine was 1.4 at that point in time, ?possible that her kidneys have not recovered since then however was over 2wks ago- Possible that she has underlying CKD and worsening recently. - CT abdomen and pelvis is negative for any acute obstructing stones or other findings today - UA obtained, follow urine culture - Nephrology consult - will obtain urine creatinine and urine osm, urine sodium 07/05 likely ATN from IV contrast, in the setting of HCTZ, Losartan use Renal US: noted crea 1.8 to 1.9--> 1.5 Nephro consulted. hold off on IV fluids for now monitor (4) HTN (hypertension): Plan: - Patient took all of her normally scheduled medications today, continue carvedilol daily - Last dobutamine stress Echo from 2019 shows LVEF 65 to 69%, LV wall thickness is borderline increased, no left ventricular mural thrombus, mild pulmonary regurgitation, no other valvular issues. - Check a 2D echo now - Holding other antihypertensives secondary to avoiding nephrotoxins and renally reducing medications with LUCAS 07/06 Echo: Gr 1 Diastolic Dysfunction resume usual Amlodipine, Carvedilol Hold HCTZ, losartan Increase amlodipine Monitor (5) Hyperlipidemia: Plan: -Continue atorvastatin (6) Anemia: Plan: - Hemoglobin 9.5, appears that her baseline is around 10, check stool guiac, patient denies any known bleeding - Consider iron studies to evaluate - No current indication for transfusion - On aspirin and plavix for SMA stenosis and s/p stent Hemoglobin from 9.5, currently 7.9 Monitor closely DVT ppx: Teds, scds, on aspirin and plavix CODE: Full code Dispo: from home, likely to remain in the hospital x 1-2 days Admission and Anticipated Discharge Date Admission Date: July 04, 2022 Subjective For acute renal failure, etc. Seen resting in bed, comfortable, not distressed Good spirits States she feels improved compared to admission No nausea vomiting, shortness of breath No problems with voiding Bilateral ankle pain improving No other symptoms Review of Systems Review of Systems: all noted and negative except for above Physical Exam Physical Exam: General- oriented x 3, not in distress, speaks in sentences with no effort or accessory muscle use Eyes- anicteric Neck- no JVD Lungs- clear breath sounds bilaterally, no crackles or wheezing Heart- normal rate, regular rhythm; no murmurs Abdomen- normal bowel sounds, nondistended, soft, nontender Extremities- no pretibial edema, no calf tenderness Mild edema right lower extremity, moderate tenderness right ankle No edema left lower extremity, moderate tenderness left ankle Neuro- alert, oriented x 3; no gross focal neurologic deficits Skin- warm & dry Results & Data Results & Data ([facility]) Vital Signs (Past 12 Hours) Vital Signs Temp Pulse Pulse Resp BP Pulse Ox Pulse Ox 07/06/22 14:19 56 L 07/06/22 13:03 87 L 07/06/22 15:07 36.5 C 58 L 16 139/60 92 07/06/22 11:33 36.5 C 62 16 173/56 H 95 07/06/22 09:05 96 07/06/22 07:52 36.7 C 58 L 17 169/56 H 95 O2 Del Method O2 Flow Rate 07/06/22 14:19 07/06/22 13:03 0 07/06/22 15:07 Room Air 07/06/22 11:33 Room Air 07/06/22 09:05 07/06/22 07:52 Room Air all noted and reviewed including below (1) HTN (hypertension) Hypertension type: unspecified Qualified Code(s): I10 - Essential (primary) hypertension
[2022-07-06] MEDS: ATORVASTATIN 40 MG TAB PO SCH (20:04)
[2022-07-06] MEDS: CITALOPRAM 40 MG TAB PO SCH (20:05)
[2022-07-06] MEDS: traZODone HCL 100 MG TAB PO SCH (20:07)
[2022-07-07 06:13] LABS: Basophils # (auto) 0.02 K/uL (0-0.2); Basophils % (auto) 0.3 %; Hematocrit (blood only) 27.9 % (34.1-44.9); Hemoglobin 9.4 g/dl (12.0-16.0); Immature Granulocytes % (auto) 1.4 %; Lymphocytes # (auto) 0.82 K/uL (1.2-3.4); Lymphocytes % (auto) 11.2 %; Mean Corpuscular Hemoglobin 33.3 pg (25.0-34.0); Mean Corpuscular Hgb Conc 33.7 g/dL (32.0-36.0); Mean Corpuscular Volume 98.9 fL (80.0-100.0); Mean Platelet Volume 10.8 fL (9.4-12.3); Monocytes # (auto) 0.49 K/uL (0.24-0.82); Monocytes % (auto) 6.7 %; Neutrophils # (auto) 5.86 K/uL (1.4-6.5); Neutrophils % (auto) 80.4 %; Platelet Count 319 K/uL (130-400); RDW Coefficient of Variation 12.2 % (11.5-14.5); RDW Standard Deviation 44.2 fL (36.4-46.3); Red Blood Count 2.82 M/uL (3.93-5.22); White Blood Count 7.29 K/ul (4.8-10.8)
[2022-07-07 06:57] LABS: BUN Creatinine Ratio 35.3 (10-20); Creatinine Clr Calc Pharmacy 38.2 ml/min; Est GFR (African American) 43.8 ml/min; Est GFR (Non-African American) 37.8 ml/min; Potassium 4.9 mmol/L (3.5-5.1)
[2022-07-07] MEDS: GABAPENTIN 600 MG TAB PO SCH ×3 (08:33→20:32)
[2022-07-07] MEDS: carvediloL 12.5 MG TAB PO SCH ×2 (08:34→20:33)
[2022-07-07] MEDS: CLOPIDOGREL BISULFATE 75 MG TAB PO SCH (08:34)
[2022-07-07] MEDS: ASPIRIN 81 MG ECTAB PO SCH (08:35)
[2022-07-07] MEDS: PANTOprazole 40 MG TAB PO SCH ×2 (08:35→20:31)
[2022-07-07] MEDS ORDERED: predniSONE 20 MG TAB PO SCH (09:00)
[2022-07-07] MEDS ORDERED: amLODIPine BESYLATE 5 MG TAB PO SCH (09:00)
--- NOTE | 2022-07-07 10:05 | Nephrology Progress Note ---
Date of Service July 07, 2022 Assessment & Plan Admission and Anticipated Discharge Date Admission Date: July 04, 2022 Subjective [facility], [id number] Nephrology Progress Note Signed Patient:ZHANE POTTER Admit Date:07/04/22 MR#:[id number] Att Phy:Geovanni Harkins MD Acct ID:[id number] [place] Phy:Karl Howe DO ([place]) Date:1950 Fam Phy: Age:71 Location:2S Sex:F Room/Bed:S241-2 cc: ~ *NOTICE TO RECEIVING DEMOCRAT/AGENCY This information is strictly Confidential and protected under [place] law. [place] law prohibits you from making any further disclosure of this information unless further disclosure is expressly permitted by the written consent of the person to whom it pertains or is authorized by law. A general authorization for the release of medical or other information is not sufficient for this purpose. Hospital accepts no responsibility if the information is made available to any other person, INCLUDING THE PATIENT. Assessment & Plan (1) LUCAS (acute kidney injury): Plan: Her baseline creatinine is unknown, she may having a base line CKD, given history of hypertension and mesenteric artery stenosis. She had angiogram done in early June and continued with LELAND and hydrochlorothiazide. Urine studies are consistent with ATN, which is resolving, Cr down to 1.3 today She still making urine, looks comfortable, oral intake has been good - USS shows small right kidney, she has likley atherosclerotic renal disease and baseline CKD. -Withhold hydrochlorothiazide and LELAND, okay with amlodipine, carvedilol, can add hydralazine as needed. - Will need non -urgent f/u with nephrology after discharge. She had extensive Angiogram recently--can ask vascular whether she has any renal artery stenosis in her good kidney. No need for renovascular scan as the atreiogram is much more accurate than US doppler. Subjective seen resting in bed, comfortable Review of Systems Review of Systems: Comfortable no dyspnea, abdominal pain ,fever/chills Physical Exam Physical Exam: General: awake, alert, no apparent distress Head: Normocephalic, atraumatic ENT: PERRL, EOMI, no pharyngeal exudate, mucous membranes moist Chest: Clear to auscultation, on room air, no adventitious breath sounds Cardiac: Regular rate and rhythm, no murmur, no JVD, Abdominal: NABS x 4 quadrants, soft, nondistended Extremities: 2+ peripheral edema of the RLE, 1+ in LLE, no erythema, calfs nontender to palpation Psych: Normal mood and affect Neuro: AAO x 3s Results & Data ([facility]) Vital Signs (Past 12 Hours) Vital Signs Temp Pulse Pulse Resp BP Pulse Ox O2 Del Method 07/07/22 08:11 36.7 C 64 20 185/56 H 96 Room Air 07/07/22 07:38 60 07/07/22 03:30 37 C 60 16 165/58 H 95 Nasal Cannula 07/06/22 22:21 62 07/06/22 22:30 36.8 C 67 18 160/59 H 94 Room Air O2 Flow Rate 07/07/22 08:11 07/07/22 07:38 07/07/22 03:30 1 07/06/22 22:21 07/06/22 22:30
[2022-07-07] MEDS: hydrALAZINE HCL 25 MG TAB PO SCH ×2 (11:02→20:30)
[2022-07-07] MEDS ORDERED: OLMESARTAN MEDOXOMIL 40 MG TAB PO STA (11:16)
[2022-07-07] MEDS: hydrALAZINE HCL 20 MG/ML VIAL IV PRN ×2 (11:41→20:54)
--- NOTE | 2022-07-07 16:45 | Hospitalist Progress Note ---
Date of Service July 07, 2022 Assessment & Plan (1) LUCAS (acute kidney injury): (2) Leg pain: (3) Mesenteric artery stenosis: (4) HTN (hypertension): (5) Hyperlipidemia: (6) Anemia: Plan: (1) LUCAS (acute kidney injury): (2) Leg pain: Plan: - DVT RLE on 07/03 negative 07/07 likely from gout on clinical exam trial of prednisone 40mg po daily, given for 2 days pain much better Hold now due to elevated blood pressure PRN [place] for pain cannot give NSAIDs, Tramadol Monitor closely (3) Mesenteric artery stenosis: Plan: per admitting SVC notes: - Continue on NSS at 125 mL/h, has gotten 1 L in the ER - Creatinine elevated at 2.19, BUN [address] Joya's office from 07/03, today creatinine is 1.89, BUN 57 - Will hold home meds including HCTZ, olmesartan, amlodipine -Underwent angiogram on 06/20/2022 where creatinine was 1.4 at that point in time, ?possible that her kidneys have not recovered since then however was over 2wks ago- Possible that she has underlying CKD and worsening recently. - CT abdomen and pelvis is negative for any acute obstructing stones or other findings today - UA obtained, follow urine culture - Nephrology consult - will obtain urine creatinine and urine osm, urine sodium 07/05 likely ATN from IV contrast, in the setting of HCTZ, olmesartan use Renal US: noted crea 1.8 to 1.9--> 1.5--> 1.3 Nephro consulted Okay to resume olmesartan monitor (4) HTN (hypertension): Plan: - Patient took all of her normally scheduled medications today, continue carvedilol daily - Last dobutamine stress Echo from 2019 shows LVEF 65 to 69%, LV wall thickness is borderline increased, no left ventricular mural thrombus, mild pulmonary regurgitation, no other valvular issues. - Check a 2D echo now - Holding other antihypertensives secondary to avoiding nephrotoxins and renally reducing medications with LUCAS 07/07 Echo: Gr 1 Diastolic Dysfunction BP elevated From prednisone? Also HCTZ held Amlodipine increased to 10 mg daily Add hydralazine 25 mg twice daily Continue carvedilol Hold HCTZ As needed hydralazine IV (5) Hyperlipidemia: Plan: -Continue atorvastatin (6) Anemia: Plan: - Hemoglobin 9.5, appears that her baseline is around 10, check stool guiac, patient denies any known bleeding - Consider iron studies to evaluate - No current indication for transfusion - On aspirin and plavix for SMA stenosis and s/p stent Hemoglobin from 9.5, currently 7.9 Iron 31 Vitamin D 20 DVT ppx: Teds, scds, on aspirin and plavix CODE: Full code Dispo: Anticipate discharge to home tomorrow when medically stable Admission and Anticipated Discharge Date Admission Date: July 04, 2022 Subjective Follow-up for acute renal failure, etc. Seen resting in bed, comfortable, not in distress Blood pressure elevated today Denies headache, chest pain, shortness of breath States she feels fine overall Leg pain much better, now about 4 out of 10 Can ambulate better No other symptoms Review of Systems Review of Systems: all noted and negative except for above Physical Exam Physical Exam: General- oriented x 2, not in distress, speaks in sentences with no effort or accessory muscle use Eyes- anicteric Neck- no JVD Lungs- clear breath sounds bilaterally, no wheezing, no crackles Heart- normal rate, regular rhythm; no murmurs Abdomen- normal bowel sounds, nondistended, soft, no tenderness Extremities-very mild edema on the right lower extremity, no ankle tenderness Neuro- alert, oriented x 3; no gross focal neurologic deficits Skin- warm & dry Results & Data Results & Data ([facility]) Vital Signs (Past 12 Hours) Vital Signs Temp Pulse Pulse Resp BP BP Pulse Ox 07/07/22 15:27 36.8 C 65 18 161/47 H 96 07/07/22 15:24 65 07/07/22 13:23 182/64 H 07/07/22 12:16 189/47 H 07/07/22 11:34 202/63 H 07/07/22 10:59 36.7 C 60 16 213/68 H 210/71 H 99 07/07/22 08:11 36.7 C 64 20 185/56 H 96 07/07/22 07:38 60 O2 Del Method 07/07/22 15:27 Room Air 07/07/22 15:24 07/07/22 13:23 07/07/22 12:16 07/07/22 11:34 07/07/22 10:59 Room Air 07/07/22 08:11 Room Air 07/07/22 07:38 all noted and reviewed including below (1) HTN (hypertension) Hypertension type: unspecified Qualified Code(s): I10 - Essential (primary) hypertension
[2022-07-07] MEDS: CITALOPRAM 40 MG TAB PO SCH (20:31)
[2022-07-07] MEDS: ATORVASTATIN 40 MG TAB PO SCH (20:33)
[2022-07-07] MEDS: traZODone HCL 100 MG TAB PO SCH (20:33)
[2022-07-08] MEDS ORDERED: amLODIPine BESYLATE 5 MG TAB PO SCH (00:10)
[2022-07-08] MEDS ORDERED: hydrALAZINE HCL 25 MG TAB PO SCH (00:15)
[2022-07-08 06:37] LABS: BUN Creatinine Ratio 30.1 (10-20); Calcium 9.2 mg/dl (8.5-10.1); Creatinine Clr Calc Pharmacy 34.1 ml/min; Est GFR (African American) 38.1 ml/min; Est GFR (Non-African American) 32.9 ml/min; Potassium 4.6 mmol/L (3.5-5.1)
[2022-07-08] MEDS: GABAPENTIN 600 MG TAB PO SCH ×2 (08:34→13:18)
[2022-07-08] MEDS: PANTOprazole 40 MG TAB PO SCH (08:34)
[2022-07-08] MEDS: carvediloL 12.5 MG TAB PO SCH (08:34)
[2022-07-08] MEDS: CLOPIDOGREL BISULFATE 75 MG TAB PO SCH (08:34)
[2022-07-08] MEDS: ASPIRIN 81 MG ECTAB PO SCH (08:35)
[2022-07-08] MEDS ORDERED: hydrALAZINE TAB 50 MG TAB PO SCH (09:00)
--- NOTE | 2022-07-08 11:53 | Hospitalist Progress Note ---
Date of Service July 08, 2022 Assessment & Plan (1) LUCAS (acute kidney injury): (2) Leg pain: (3) Mesenteric artery stenosis: (4) HTN (hypertension): (5) Hyperlipidemia: (6) Anemia: Plan: (1) LUCAS (acute kidney injury): (2) Leg pain: Plan: - DVT RLE on 07/03 negative 07/08 likely from gout on clinical exam trial of prednisone 40mg po daily, given for 3 days pain much better, but left ankle still has 4 out of 10 pain Prednisone 20 mg p.o. 1 dose today PRN [place] for pain cannot give NSAIDs, Tramadol Monitor closely (3) Mesenteric artery stenosis: Plan: per admitting SVC notes: - Continue on NSS at 125 mL/h, has gotten 1 L in the ER - Creatinine elevated at 2.19, BUN [address] Joya's office from 07/03, today creatinine is 1.89, BUN 57 - Will hold home meds including HCTZ, olmesartan, amlodipine -Underwent angiogram on 06/20/2022 where creatinine was 1.4 at that point in time, ?possible that her kidneys have not recovered since then however was over 2wks ago- Possible that she has underlying CKD and worsening recently. - CT abdomen and pelvis is negative for any acute obstructing stones or other findings today - UA obtained, follow urine culture - Nephrology consult - will obtain urine creatinine and urine osm, urine sodium 07/08 likely ATN from IV contrast, in the setting of HCTZ, olmesartan use Renal US: noted crea 1.8 to 1.9--> 1.5--> 1.3--> 1.5 Nephro consulted For now hold olmesartan, HCTZ monitor closely as outpatient (4) HTN (hypertension): Plan: - Patient took all of her normally scheduled medications today, continue carvedilol daily - Last dobutamine stress Echo from 2018 shows LVEF 65 to 69%, LV wall thickness is borderline increased, no left ventricular mural thrombus, mild pulmonary regurgitation, no other valvular issues. - Check a 2D echo now - Holding other antihypertensives secondary to avoiding nephrotoxins and renally reducing medications with LUCAS 07/07 Echo: Gr 1 Diastolic Dysfunction BP elevated From prednisone? Also HCTZ held Amlodipine increased to 10 mg daily Add hydralazine 25 mg twice daily Continue carvedilol Hold HCTZ As needed hydralazine IV 07/08 Hold olmesartan in light of elevated creatinine Increase hydralazine to 50 mg twice daily Continue amlodipine 10 mg daily Continue carvedilol monitor closely (5) Hyperlipidemia: Plan: -Continue atorvastatin (6) Anemia: Plan: - Hemoglobin 9.5, appears that her baseline is around 10, check stool guiac, patient denies any known bleeding - Consider iron studies to evaluate - No current indication for transfusion - On aspirin and plavix for SMA stenosis and s/p stent Hemoglobin from 9.5, currently 7.9 Iron 31 Vitamin D 20 DVT ppx: Teds, scds, on aspirin and plavix CODE: Full code Dispo: Anticipate discharge to home later when BP stable Admission and Anticipated Discharge Date Admission Date: July 04, 2022 Subjective ff up for acute renal failure, ATN, hypertension, etc. Seen resting in bed, comfortable, not distressed States she feels better overall Left ankle pain about 4 out of 10, right ankle pain resolved No chest pain, shortness of breath, palpitations, dizziness Voiding with no problems Able to ambulate better Blood pressure elevated but better this morning No other symptoms Review of Systems Review of Systems: all noted and negative except for above Physical Exam Physical Exam: General- oriented x 3, not in distress, speaks in sentences with no effort or accessory muscle use Eyes- anicteric Neck- no JVD Lungs- clear breath sounds bilaterally, no wheezing, no crackles Heart- normal rate, regular rhythm; no murmurs Abdomen- normal bowel sounds, nondistended, soft, no tenderness Extremities- no pretibial edema, no calf tenderness Mild tenderness left ankle No edema/erythema bilateral lower extremities Neuro- alert, oriented x 3; no gross focal neurologic deficits Skin- warm & dry Results & Data Results & Data ([facility]) Vital Signs (Past 12 Hours) Vital Signs Temp Pulse Pulse Resp BP Pulse Ox O2 Del Method 07/08/22 07:00 36.8 C 61 18 152/76 H 98 Room Air 07/08/22 07:21 58 L 07/08/22 03:03 36.5 C 60 18 156/56 H 96 Room Air all noted and reviewed including below (1) HTN (hypertension) Hypertension type: unspecified Qualified Code(s): I10 - Essential (primary) hypertension
[2022-07-08] MEDS ORDERED: predniSONE 20 MG TAB PO STA (11:54)
--- NOTE | 2022-07-08 14:54 | Discharge Summary ---
Discharge Summary Date of Service July 08, 2022 Notes For Next Care Provider Please obtain basic metabolic profile to reevaluate renal function on follow-up with primary care physician 1 week postdischarge. Medication Changes From Visit Discontinued medications: Olmesartan HCTZ New medications: Amlodipine increased to 10 mg daily from 5 mg daily Hydralazine 50 mg twice daily Prednisone 20 mg daily x1 day Admission HPI Per Admitting Provider This is a 71-year-old female with PMHx of HTN, HLD, osteoarthritis, SMA occlusion s/p angiogram and stenting on 06/20/22. At that time her Cr. was noted to be slightly elevated at 1.4 and was instructed to hydrate. Upon having her 1 week follow up outpatient labs collected Cr.= 2.9, BUN = 60 compared to her baseline kidney function with creatinine of 1.0 and therefore was sent to the ER. She reports feeling more fatigued and weak since having the angiogram done on Jun 20. She has noticed increased swelling in both of her legs and feels that her skin is tight, so has been taking HCTZ on a daily basis along with her other antihypertensive medications. She had noticed worsening edema in her legs prior to the angiogram and has been taking HCTZ for about 1 month daily. She had right leg ultrasound yesterday in Dr. Joya's office to rule out DVT and was negative. Her legs do hurt and has been using gabapentin and oxycodone for pain. She has been eating and drinking fine. Pt is also taking amlodipine and has for years. She does feel some low pelvis "discomfort", denies any issues with urinating, no dysuria, no hematuria, no increased frequency. Patient reports her last bowel movement was 2 days ago and denies seeing blood in stool or having dark tarry BMs. 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 Her sister and her daughter are present at bedside. Admission Exam Per Admitting Provider Physical Exam: General: awake, alert, no apparent distress, patient is well- kept: Appears fixed, wearing make-up, nails are done, toenails are painted Head: Normocephalic, atraumatic ENT: PERRL, EOMI, no pharyngeal exudate, mucous membranes moist Chest: Clear to auscultation, on room air, no adventitious breath sounds Cardiac: Regular rate and rhythm, no murmur, no JVD, normal peripheral pulses, good capillary refill Abdominal: NABS x 4 quadrants, soft, nondistended, nontender to palpation, no rebound or guarding Extremities: 2+ peripheral edema of the RLE, 1+ in LLE, no erythema, calfs nontender to palpation Psych: Normal mood and affect Neuro: AAO x 3, strength intact bilaterally and rated 5/5, no motor deficits, speech is clear, no peripheral sensory deficits Principal Dx & Hospital Course #1 = Principal Diagnosis (1) LUCAS (acute kidney injury): (1) Acute kidney injury likely ATN from IV contrast, in the setting of HCTZ, olmesartan use - SMA occlusion s/p angiogram and stenting on 06/20/22. - Creatinine elevated at 2.19, BUN [address] Joya's office from 07/03,on admission, creatinine is 1.89, BUN 57 - CT abdomen and pelvis is negative for any acute obstructing stones Renal US: 1. No hydronephrosis. 2. Marked right renal atrophy. Nephro consulted, did not recommend IV fluids crea gradually improving , crea 1.8 to 1.9--> 1.5--> 1.3--> 1.5 For now hold olmesartan, HCTZ Repeat BMP and follow-up with primary care physician this coming week (2) Bilateral ankle pain, likely acute gout attack Plan: likely from gout on clinical exam trial of prednisone 40mg po daily, given for 3 days pain much better, but left ankle still has 4 out of 10 pain Prednisone 20 mg p.o. 1 dose today PRN [place] for pain cannot give NSAIDs, Tramadol Monitor closely (3) Mesenteric artery stenosis: Plan: SMA occlusion s/p angiogram and stenting on 06/20/22. (4) HTN (hypertension): Plan: Echo: Gr 1 Diastolic Dysfunction BP elevated From prednisone? Also HCTZ held Hold olmesartan in light of elevated creatinine Increase hydralazine to 50 mg twice daily Continue amlodipine 10 mg daily Continue carvedilol BP improving, monitor closely (5) Hyperlipidemia: Plan: -Continue atorvastatin (6) Anemia: Plan: - Hemoglobin 9.5, appears that her baseline is around 10, check stool guiac, patient denies any known bleeding - Consider iron studies to evaluate - No current indication for transfusion - On aspirin and plavix for SMA stenosis and s/p stent Hemoglobin from 9.5, currently 7.9 Iron 31 further work up and management of anemia as outpatient Vitamin D 20--> Vit D supplement daily monitor as outpatient DVT ppx: Teds, scds, on aspirin and plavix CODE: Full code Dispo:d/c home ff up with PCP in 1 week Discharge Exam General- oriented x 3, not in distress, speaks in sentences with no effort or accessory muscle use Eyes- anicteric Neck- no JVD Lungs- clear breath sounds bilaterally, no wheezing, no crackles Heart- normal rate, regular rhythm; no murmurs Abdomen- normal bowel sounds, nondistended, soft, no tenderness Extremities- no pretibial edema, no calf tenderness Mild tenderness left ankle No edema/erythema bilateral lower extremities Neuro- alert, oriented x 3; no gross focal neurologic deficits Skin- warm & dry Updated Medication List Medication Instructions Recorded Confirmed Type trazodone 100 mg tablet 100 mg PO HS ##0 09/22/11 07/04/22 History aspirin 81 mg tablet,delayed 81 mg PO QAM ##0 03/30/18 07/04/22 History release citalopram 40 mg tablet 40 mg PO HS ##0 03/30/18 07/04/22 History atorvastatin 40 mg tablet (Lipitor) 40 mg PO PM 09/06/18 07/04/22 History omeprazole magnesium 20 mg 40 mg PO BID 06/30/19 07/04/22 History tablet,delayed release (Prilosec OTC) clopidogrel 75 mg tablet (Plavix) 75 mg PO DAILY #30 tabs 07/08/19 07/04/22 Rx carvedilol phosphate 20 mg 20 mg PO DAILY 07/03/22 07/04/22 History capsule,[id number] multiphase cyclobenzaprine 10 mg tablet 10 mg PO BID PRN Muscle spasms 07/03/22 07/04/22 History hydrocodone 7.5 mg-acetaminophen 1 tab PO TID PRN Pain 07/03/22 07/04/22 History 325 mg tablet gabapentin 300 mg capsule 300 mg PO TID 07/04/22 07/04/22 History amlodipine 5 mg tablet 10 mg PO QAM 30 days #60 tabs 07/08/22 Rx hydralazine 50 mg tablet 50 mg PO BID 30 days #60 tabs 07/08/22 Rx prednisone 20 mg tablet 20 mg PO DAILY #1 tab 07/08/22 Rx Hospital Stay Data Consultations 07/04/22 14:18 ED Decision to Admit Stat 07/04/22 16:13 Consult Nephrology Routine Diagnostic Imagining Performed Abdomen/Pelvis CT 07/04/22 12:[address] WITHOUT CONTRAST CT DOSE: 802.01 mGy.cm HISTORY: History of kidney stone. Possible urinary obstruction. TECHNIQUE: Multiaxial CT images of the abdomen and pelvis were performed without contrast. A dose lowering technique was utilized adhering to the principles of ALARA. COMPARISON STUDY: Abdomen, pelvis, bilateral lower extremity CTA 06/06/2019. Outside hospital abdomen and pelvis CT 04/14/2022. FINDINGS: Mild dependent changes seen at the lung bases. No pneumoperitoneum. No pneumatosis. L4-S1 posterior decompression and fusion with pedicle screws and rods. The hardware appears intact. Severe degenerative disc disease from T12 through L4 is noted. Stable 6 cm hypodense lesion within the right hepatic dome. This is incompletely characters on this noncontrast study but favors a cyst. There are few small gallstones. No gallbladder wall thickening. The spleen, adrenal glands, and pancreas are unremarkable. Normal left kidney. Moderately atrophic right kidney, unchanged. The 5 mm stone within the right ureteropelvic junction on the prior study now resides within the lower pole of the right kidney. No right ureteral calculi. There is a 7 mm calcification within the left deep pelvis on image 314. This could be within the distal left ureter and may account for the mild fullness within the mid to distal left ureter. However, there is no left-sided hydronephrosis. The bladder is unremarkable. The uterus and bilateral adnexa are within normal limits. Suboptimal evaluation for bowel pathology due to the lack of intravenous and oral contrast. However, there is no definite bowel wall thickening or obstruction. Normal appendix. No retroperitoneal lymphadenopathy. Extensive calcified plaque within the normal caliber abdominal aorta and iliac arteries. A superior mesenteric artery stent is noted. IMPRESSION: 1. The 5 mm stone within the right ureteropelvic junction on the prior study now resides within the lower pole of the right kidney. No right ureteral calculi or hydronephrosis. 2. There is a 7 mm calcification within the left deep pelvis. This could represent a nonobstructing distal left ureteral stone or phlebolith. This can be confirmed with follow-up CT urogram. No left-sided hydronephrosis. 3. Cholelithiasis. 4. Mildly atrophic right kidney, unchanged. 5. No bowel wall thickening or obstruction. ACT 112: Negative or not required by law. Electronically signed by: Daniel Lopez M.D. 07/04/2022 1:53 PM Chest X-Ray 07/05/22 03:51 XR chest 1V portable CLINICAL HISTORY: low o2 COMPARISON STUDY: Chest radiograph July 04, 2022. FINDINGS: Osteoarthritis of the shoulders is incidentally noted. No pneumothorax or pleural effusion is present. No consolidation to suggest pneumonia. Cardiomediastinal silhouette is stable. Appearance of the chest is unchanged. IMPRESSION: No acute cardiopulmonary findings. ACT 112: Negative or not required by law. Electronically signed by: Torey Rouse M.D. 07/05/2022 6:56 AM Renal Ultrasound 07/05/22 11:00 RENAL ULTRASOUND CLINICAL HISTORY: lucas/ ckd COMPARISON STUDY: CT of the abdomen and pelvis July 04, 2022. TECHNIQUE: Sonography of the kidneys and the urinary bladder was performed. FINDINGS: There is no hydronephrosis. The right renal and possible distal left ureteral calculi shown on prior CT are not evident by sonography. Marked right renal atrophy is present. The right kidney measures 8.7 cm in maximal dimension and the left measures 10.8 cm. Ureteral jets were not visualized. IMPRESSION: 1. No hydronephrosis. 2. Marked right renal atrophy. ACT 112: Negative or not required by law. Electronically signed by: Torey Rouse M.D. 07/05/2022 12:09 PM 07/04/22 12:30 CT abd pelvis wo con Stat 07/05/22 11:00 US Renal Bladder [US renal/blad retro comp] Routine Pending Results Patient Have Any Pending Studies at Discharge: Yes Discharge Instructions Given to Patient (Per Discharging Provider) PLEASE REFER TO YOUR NEW MEDICATION LIST AND FOLLOW INSTRUCTIONS CAREFULLY. YOUR NEW MEDICATIONS INCLUDE: Hydralazine- for blood pressure control Prednisone- for gout Stop taking olmesartan. Do not take medications under the class of NSAIDs including ibuprofen, naproxen, etc. Drink plenty of fluids 6 to 8 glasses/day. PLEASE CALL YOUR PRIMARY CARE PHYSICIAN OR RETURN TO THE ER IF WITH WORSENING OF SYMPTOMS, INCLUDING Problems with urination, shortness of breath, nausea or vomiting, Worsening ankle or leg pain, swelling, redness, etc. FOLLOW UP WITH PRIMARY CARE PHYSICIAN IN 1 WEEK. THE CLINIC WILL BE CALLING YOU SOON FOR THE APPOINTMENT SCHEDULE. Total Time Total Time Spent Total Time Spent (In Minutes): >30 minutes
== END 2022-07-08 17:18 | disposition home or self-care (01) | DRG 683 ==
LOC: ED 11:55 → 2S 14:32 → SUATTDRO 14:32 → 2S 18:15

== ENCOUNTER 2022-07-14 11:53 | Inpatient (IN) ==
[2022-07-14] MEDS ORDERED: ACETAMINOPHEN 325 MG TAB PO STA (11:58)
[2022-07-14 12:36] LABS: Basophils # (auto) 0.03 K/uL (0-0.2); Basophils % (auto) 0.2 %; Eosinophils % (auto) 0.7 %; Hematocrit (blood only) 30.3 % (34.1-44.9); Hemoglobin 10.1 g/dl (12.0-16.0); Immature Granulocytes # (auto) 0.12 K/uL (0.00-0.02); Immature Granulocytes % (auto) 0.8 %; Lymphocytes # (auto) 1.63 K/uL (1.2-3.4); Lymphocytes % (auto) 11.3 %; Mean Corpuscular Hemoglobin 32.9 pg (25.0-34.0); Mean Corpuscular Hgb Conc 33.3 g/dL (32.0-36.0); Mean Corpuscular Volume 98.7 fL (80.0-100.0); Mean Platelet Volume 11.5 fL (9.4-12.3); Monocytes % (auto) 11.8 %; Neutrophils % (auto) 75.2 %; Platelet Count 221 K/uL (130-400); RDW Standard Deviation 46.5 fL (36.4-46.3); Red Blood Count 3.07 M/uL (3.93-5.22); White Blood Count 14.38 K/ul (4.8-10.8)
[2022-07-14 12:59] LABS: Alanine Aminotransferase 13 U/L (7-52); Albumin Level 3.4 gm/dl (3.4-5.0); Alkaline Phosphatase 71 U/L (34-104); Anion Gap 10 (3-11); Aspartate Aminotransferase 13 U/L (13-39); BUN Creatinine Ratio 18.3 (10-20); Bilirubin,Total 0.8 mg/dl (0.2-1.0); Blood Urea Nitrogen 21 mg/dl (6-23); Calcium 9.3 mg/dl (8.5-10.1); Carbon Dioxide 26 mmol/L (21-32); Chloride 99 mmol/L (98-107); Est GFR (Non-African American) 47.5 ml/min; Globulin 3.4 gm/dl (2.5-4.0); Glucose 122 mg/dl (70-99(Fasting)); Potassium 3.9 mmol/L (3.5-5.1); Sodium 135 mmol/L (136-145); Total Protein 6.8 gm/dl (6.0-8.3)
[2022-07-14] MEDS ORDERED: cefTRIAXone SODIUM 2,000 MG/70 ML BAG IV STA (13:58)
[2022-07-14] MEDS ORDERED: SODIUM CHLORIDE 0.9% 1000ML 1,000 ML IV ONE (14:00)
--- NOTE | 2022-07-14 14:32 | Emergency Department Note ---
Impression & Plan Fever, Bilateral leg pain, Leukocytosis ED Provider Note NAME: ZHANE POTTER AGE: 71 SEX: F : 1950 ARRIVES VIA: Walk-In INFORMANT: Patient ED PROVIDER(S): Luis Angel Hernández DO CHIEF COMPLAINT: weak can't walk with leg pain HPI: Patient is a 71-year-old female who was recently admitted and discharged last week with renal failure. She notes that this was secondary to IV contrast. While she was inpatient she was having some leg pain. This has significantly worsened. They did place her on steroids and this did not help. She cannot walk do to pain. She admits to feeling hot and cold. I has gotten significantly worse over the past 4 to 5 days. It is in the lower extremities from the knees down. Denies any headache or change in vision. No chest pain or shortness of breath. No nausea, vomiting, or diarrhea. No dysuria, urgency, or frequency. No other exacerbating or remitting factors. ROS: See above HPI for pertinent positives & negatives. A total of 10 systems reviewed and were otherwise negative. PAST MEDICAL HISTORY:See Below PAST SURGICAL HISTORY:See Below FAMILY HISTORY:See Below SOCIAL HISTORY:See Below HOME MEDICATIONS:See Below ALLERGIES:See Below VITALS:See Below PHYSICAL EXAMINATION: GENERAL: Sitting up in bed, alert, well appearing, well nourished, no distress, non-toxic EYE EXAM: normal conjunctiva. OROPHARYNX: no exudate, no erythema, lips, buccal mucosa, and tongue normal and mucous membranes are moist NECK: supple, no nuchal rigidity, no adenopathy, non-tender LUNGS: Clear to auscultation. Normal chest wall mechanics HEART: no murmurs, S1 normal and S2 normal ABDOMEN: abdomen soft, non-tender, normo-active bowel sounds, no masses, no rebound or guarding. UPPER EXTREMITIES: upper extremities are grossly normal. LOWER EXTREMITIES: Flexion-extension bilateral hips knees ankles and EHL intact. Acute tenderness on palpation of the foot shins knees bilaterally. NEURO EXAM: Normal sensorium, cranial nerves II-XII grossly intact, normal speech, no gross weakness of arms, no gross weakness of legs. MEDICAL DECISION MAKING: Patient is a 71-year-old female who presents ER for bilateral leg pain from the knees down to her feet. She is febrile and slightly tachycardic. IV was e stablished blood work was obtained. Labs show leukocytosis of 14,000. She was fairly hypertensive and I do favor the secondary to the pain. No significant anemia. BMP along with LFTs bilirubin was unremarkable. UA was contaminated. No signs of infection. Lyme IgG and IgM were negative. She was acutely tender with just light palpitation bilateral knees tib-fib's and ankles as well as feet. X-rays and knees showed a small effusion and degenerative changes. No other complaints at this time. She was given Rocephin as well as IV morphine and Zofran. She is updated bedside. Discussed with hospitalist for further evaluation. Triage Nursing notes reviewed. Limited review of prior medical records performed Vital Signs: reviewed and remarkable for HTN, fever Differential diagnosis: Differential diagnosis includes etiologies such as sepsis, UTI, pneumonia, metabolic, electrolyte abnormalities, cardiac sources, intracerebral event, toxicologic, neurological, as well as others were entertained. ER treatment provided: See below Diagnostics interpreted by me: ECG: none Cardiac Monitoring: An order was placed for continuous cardiac monitoring. The monitor shows a rate of 70 with sinus rhythm. Laboratory studies: As stated above and show below. Imaging studies: Chest x-ray as well as x-ray of the knees were unremarkable Consultation(s): Discussed with [facility] hospitalist for further evaluation and admission. Procedures: none Critical Care: None Past Med/Surg History Medical History (Updated 07/14/22 @ 16:51 by Luis Angel Hernández DO) Carotid artery stenosis Chronic back pain Diverticular disease Gout HTN (hypertension) Hyperlipidemia Hypertension Mesenteric artery stenosis Neck pain Surgical History H/O left cataract extraction 04/29/18-2mg IV versed given without issues History of arthroplasty of right knee History of arthroscopy chencho knee History of back surgery History of bilateral tubal ligation History of carpal tunnel surgery right History of CEA (carotid endarterectomy) History of colonoscopy w/ polypectomy History of endoscopic sinus surgery Family History Mother Family history of early CAD Social History Smoking Status: Never smoker Second Hand Exposure: No; Hx Alcohol Use: No Hx Substance Use: Yes (hydrocodone) Preferred Language: Khmer Communication Ability: Effective Visual Impairment: No Limitations Integration Solution Architect Required: No Beliefs That Will Affect Care: None Current Living Situation: Alone Feels Safe at Home: Yes Assistive Devices: None Allergies Allergies Allergy/AdvReac Type Severity Reaction Status Date / Time oxycodone AdvReac Severe syncope, Verified 07/04/22 14:11 low bp nickel AdvReac Intermediate rash and Verified 07/04/22 14:11 skin turns green Home Meds Home Medications Medication Instructions Recorded Confirmed trazodone 100 mg tablet 100 mg PO HS ##0 09/22/11 07/04/22 aspirin 81 mg tablet,delayed 81 mg PO QAM ##0 03/30/18 07/04/22 release citalopram 40 mg tablet 40 mg PO HS ##0 03/30/18 07/04/22 atorvastatin 40 mg tablet (Lipitor) 40 mg PO PM 09/06/18 07/04/22 omeprazole magnesium 20 mg 40 mg PO BID 06/30/19 07/04/22 tablet,delayed release (Prilosec OTC) carvedilol phosphate 20 mg 20 mg PO DAILY 07/03/22 07/04/22 capsule,[id number] multiphase cyclobenzaprine 10 mg tablet 10 mg PO BID PRN Muscle spasms 07/03/22 07/04/22 hydrocodone 7.5 mg-acetaminophen 1 tab PO TID PRN Pain 07/03/22 07/04/22 325 mg tablet gabapentin 300 mg capsule 300 mg PO TID 07/04/22 07/04/22 Previous Rx's Medication Instructions Recorded clopidogrel 75 mg tablet (Plavix) 75 mg PO DAILY #30 tabs 07/08/19 amlodipine 5 mg tablet 10 mg PO QAM 30 days #60 tabs 07/08/22 ergocalciferol (vitamin D2) 50 mcg 50 mcg PO DAILY 1 month #30 caps 07/08/22 (2,000 unit) capsule hydralazine 50 mg tablet 50 mg PO BID 30 days #60 tabs 07/08/22 prednisone 20 mg tablet 20 mg PO DAILY #1 tab 07/08/22 Results & Data (ED) Vital Signs Vital Signs - 24 hr 07/14/22 11:55 Temperature 38.3 C H Temperature Source Temporal Artery Scan Pulse Rate 74 Respiratory Rate 18 Respiratory Effort / Characteristics Non-Labored Spontaneous Respiratory Depth Normal Respiratory Pattern Regular Blood Pressure 189/61 H Blood Pressure Mean 103 Blood Pressure Position Sitting Pulse Oximetry 96 Oxygen Delivery Method Room Air Sepsis Recent Fever Within 48 Hours Yes Sepsis New/Unexplained Change in Mental Status N/A Sepsis Action Taken by Nursing No Action Required Laboratory Data Result diagrams: 07/14/22 12:20 07/14/22 12:20 Lab Results 07/14/22 07/14/22 07/14/22 Range/Units 12:20 12:20 12:20 WBC 14.38 H (4.8-10.8) K/ul RBC 3.07 L (3.93-5.22) M/uL Hgb 10.1 L (12.0-16.0) g/dl Hct 30.3 L (34.1-44.9) % MCV 98.7 (80.0-100.0) fL MCH 32.9 (25.0-34.0) pg MCHC 33.3 (32.0-36.0) g/dL RDW Std Deviation 46.5 H (36.4-46.3) fL RDW Coeff of Geeta 13.0 (11.5-14.5) % Plt Count 221 (130-400) K/uL MPV 11.5 (9.4-12.3) fL Immature Gran % (Auto) 0.8 % Neut % (Auto) 75.2 % Lymph % (Auto) 11.3 % Gordon % (Auto) 11.8 % Eos % (Auto) 0.7 % Baso % (Auto) 0.2 % Neut # (Auto) 10.80 H (1.4-6.5) K/uL Lymph # (Auto) 1.63 (1.2-3.4) K/uL Gordon # (Auto) 1.70 H (0.24-0.82) K/uL Eos # (Auto) 0.10 (0-0.50) K/uL Baso # (Auto) 0.03 (0-0.2) K/uL Immature Gran # (Auto) 0.12 H (0.00-0.02) K/uL Sodium 135 L (136-145) mmol/L Potassium 3.9 (3.5-5.1) mmol/L Chloride 99 (98-107) mmol/L Carbon Dioxide 26 (21-32) mmol/L Anion Gap 10 (3-11) BUN 21 (6-23) mg/dl Creatinine 1.15 (0.6-1.2) mg/dl Est Cr Clr Drug Dosing Not Reportable Est GFR ( Amer) 55.0 ml/min Est GFR (Non-Af Amer) 47.5 ml/min BUN/Creatinine Ratio 18.3 (10-20) Glucose 122 H (70-99(Fasting)) mg/dl Calcium 9.3 (8.5-10.1) mg/dl Total Bilirubin 0.8 (0.2-1.0) mg/dl AST 13 (13-39) U/L ALT 13 (7-52) U/L Alkaline Phosphatase 71 (34-104) U/L Total Protein 6.8 (6.0-8.3) gm/dl Albumin 3.4 (3.4-5.0) gm/dl Globulin 3.4 (2.5-4.0) gm/dl Albumin/Globulin Ratio 1.0 (0.9-2) Urine Color Urine Appearance (Clear) Urine pH (4.5-7.5) Ur Specific Brewster (1.000-1.030) Urine Protein (Negative) Urine Glucose (UA) (Negative) Urine Ketones (Negative) Urine Blood (Negative) Urine Nitrite (Negative) Urine Bilirubin (Negative) Urine Urobilinogen (Negative) Ur Leukocyte Esterase (Negative) Urine WBC (Auto) (0-5) /hpf Urine RBC (Auto) (0-4) /hpf U Hyaline Cast (Auto) (0-5) /lpf U Epithel Cells (Auto) (0-5) /lpf Urine Bacteria (Auto) (Negative) Lyme Disease IgG Ab Negative (Negative) Lyme Disease IgM Ab Negative (Negative) 07/14/22 Range/Units 14:55 WBC (4.8-10.8) K/ul RBC (3.93-5.22) M/uL Hgb (12.0-16.0) g/dl Hct (34.1-44.9) % MCV (80.0-100.0) fL MCH (25.0-34.0) pg MCHC (32.0-36.0) g/dL RDW Std Deviation (36.4-46.3) fL RDW Coeff of Geeta (11.5-14.5) % Plt Count (130-400) K/uL MPV (9.4-12.3) fL Immature Gran % (Auto) % Neut % (Auto) % Lymph % (Auto) % Gordon % (Auto) % Eos % (Auto) % Baso % (Auto) % Neut # (Auto) (1.4-6.5) K/uL Lymph # (Auto) (1.2-3.4) K/uL Gordon # (Auto) (0.24-0.82) K/uL Eos # (Auto) (0-0.50) K/uL Baso # (Auto) (0-0.2) K/uL Immature Gran # (Auto) (0.00-0.02) K/uL Sodium (136-145) mmol/L Potassium (3.5-5.1) mmol/L Chloride (98-107) mmol/L Carbon Dioxide (21-32) mmol/L Anion Gap (3-11) BUN (6-23) mg/dl Creatinine (0.6-1.2) mg/dl Est Cr Clr Drug Dosing Est GFR ( Amer) ml/min Est GFR (Non-Af Amer) ml/min BUN/Creatinine Ratio (10-20) Glucose (70-99(Fasting)) mg/dl Calcium (8.5-10.1) mg/dl Total Bilirubin (0.2-1.0) mg/dl AST (13-39) U/L ALT (7-52) U/L Alkaline Phosphatase (34-104) U/L Total Protein (6.0-8.3) gm/dl Albumin (3.4-5.0) gm/dl Globulin (2.5-4.0) gm/dl Albumin/Globulin Ratio (0.9-2) Urine Color Dark Yellow Urine Appearance Clear (Clear) Urine pH 5.5 (4.5-7.5) Ur Specific Brewster 1.020 (1.000-1.030) Urine Protein 1+ H (Negative) Urine Glucose (UA) Negative (Negative) Urine Ketones Trace H (Negative) Urine Blood Negative (Negative) Urine Nitrite Negative (Negative) Urine Bilirubin Negative (Negative) Urine Urobilinogen Negative (Negative) Ur Leukocyte Esterase Trace H (Negative) Urine WBC (Auto) 1-5 (0-5) /hpf Urine RBC (Auto) 5-10 H (0-4) /hpf U Hyaline Cast (Auto) 5-10 H (0-5) /lpf U Epithel Cells (Auto) 20-30 H (0-5) /lpf Urine Bacteria (Auto) Negative (Negative) Lyme Disease IgG Ab (Negative) Lyme Disease IgM Ab (Negative) Administered Medications Discontinued Medications Acetaminophen (Acetaminophen 325 Mg Tab) 650 mg PO NOW STA Stop: 07/14/22 11:59 Last Admin: 07/14/22 12:29 Dose: 650 mg Documented By: QGV Ceftriaxone Sodium (Rocephin) 2,000 mg in 70 mls @ 140 mls/hr IV NOW STA Stop: 07/14/22 14:27 Last Admin: 07/14/22 15:32 Dose: 140 mls/hr Documented By: KK Sodium Chloride (Nss 1000ml) 1,000 mls @ 999 mls/hr IV .Q1H1M ONE Stop: 07/14/22 15:00 Last Admin: 07/14/22 15:32 Dose: 999 mls/hr Documented By: KK Imaging Data Radiologist's Impression: Knee X-Ray 07/14/22 14:00 XR knee RT 3V HISTORY: 71 years-old Female b/l knee pain chronic bilateral knee pain in a patient with fever COMPARISON: Left knee radiographs of same day TECHNIQUE: 3 views of the right knee FINDINGS: Chondrocalcinosis. Mild lateral with mild to moderate medial and severe patellofemoral compartment osteoarthritis. Arterial calcifications. Trace joint effusion. Mild circumferential soft tissue prominence. IMPRESSION: 1. No acute fracture or dislocation. 2. Tricompartmental osteoarthritis, severe within the patellofemoral joint. ACT 112: Negative or not required by law. The above report was generated using voice recognition software. It may contain grammatical, syntax or spelling errors. Electronically signed by: Rudi Vanegas M.D. 07/14/2022 2:40 PM Knee X-Ray 07/14/22 14:00 LEFT KNEE 3 VIEWS CLINICAL HISTORY: Atraumatic left knee pain. FINDINGS: AP, crosstable lateral, and sunrise views of the left knee are obtained. No prior studies are available for comparison at the time of dictation. The skeletal structures are osteopenic. No fracture is seen. There is advanced degenerative narrowing in the lateral and patellofemoral compartments. Mild narrowing is seen in the medial compartment. There are large lateral marginal osteophytes, degenerative beaking of the tibial spine, and patellar enthesophytes. There is a small joint effusion. Soft tissue edema is seen around the knee. There is atherosclerotic calcification of the popliteal artery. A calcified fabella is incidentally noted. IMPRESSION: 1. Soft tissue swelling and joint effusion with no acute bony abnormality identified. 2. Osteopenia and degenerative change as above. Electronically signed by: Manan Pinto M.D. 07/14/2022 2:44 PM Chest X-Ray 07/14/22 14:20 XR chest 1V portable CLINICAL HISTORY: fever COMPARISON STUDY: Chest radiograph July 05, 2022. FINDINGS: Severe osteoarthritis of the left shoulder is incidentally noted. Lung volumes are normal. Lungs are clear. There is no pneumothorax or pleural effusi on. Cardiac size is normal. Mediastinal contours are normal. There is no evidence for pulmonary edema. IMPRESSION: No acute cardiopulmonary findings. ACT 112: Negative or not required by law. Electronically signed by: Torey Rouse M.D. 07/14/2022 2:36 PM Discharge Plan Visit Data Chief Complaint: Illness Stated Complaint: PAIN IN LEGS AND FEET ED Provider: Luis Angel Hernández Discharge Problem: Fever, Bilateral leg pain, Leukocytosis Forms Stand Alone Forms: [facility] Prescriptions Prescriptions: No Action trazodone 100 mg Tablet 100 mg PO HS Qty: 0 citalopram 40 mg Tablet 40 mg PO HS Qty: 0 aspirin 81 mg Tablet,Delayed Release (Dr/Ec) 81 mg PO QAM Qty: 0 hydrocodone-acetaminophen 7.5-325 mg tablet 1 tab PO TID PRN (Reason: Pain) cyclobenzaprine 10 mg tablet 10 mg PO BID PRN (Reason: Muscle spasms) carvedilol phosphate 20 mg capsule, ER multiphase 24 hr 20 mg PO DAILY Rx Instructions: must administer with a meal/food atorvastatin [Lipitor] 40 mg Tablet 40 mg PO PM omeprazole magnesium [Prilosec OTC] 20 mg Tablet,Delayed Release (Dr/Ec) 40 mg PO BID clopidogrel [Plavix] 75 mg tablet 75 mg PO DAILY Qty: 30 6RF gabapentin 300 mg capsule 300 mg PO TID hydralazine 50 mg Tablet 50 mg PO BID 30 Days Qty: 60 1RF prednisone 20 mg tablet 20 mg PO DAILY Qty: 1 0RF Rx Instructions: Take tomorrow July 09, 2022 amlodipine 5 mg Tablet 10 mg PO QAM 30 Days Qty: 60 1RF ergocalciferol (vitamin D2) 50 mcg (2,000 unit) capsule 50 mcg PO DAILY 30 Days Qty: 30 1RF Referrals Referrals: Karl Howe DO [Primary Care Provider] -
--- NOTE | 2022-07-14 14:38 | XRay Report ---
XR chest 1V portable CLINICAL HISTORY: fever COMPARISON STUDY: Chest radiograph July 05, 2022. FINDINGS: Severe osteoarthritis of the left shoulder is incidentally noted. Lung volumes are normal. Lungs are clear. There is no pneumothorax or pleural effusion. Cardiac size is normal. Mediastinal co ntours are normal. There is no evidence for pulmonary edema. IMPRESSION: No acute cardiopulmonary findings. ACT 112: Negative or not required by law. Electronically signed by: Torey Rouse M.D. 07/14/2022 2:36 PM
--- NOTE | 2022-07-14 14:42 | XRay Report ---
XR knee RT 3V HISTORY: 71 years-old Female b/l knee pain chronic bilateral knee pain in a patient with fever COMPARISON: Left knee radiographs of same day TECHNIQUE: 3 views of the right knee FINDINGS: Chondrocalcinosis. Mild lateral with mild to moderate medial and severe patellofemoral compartment os teoarthritis. Arterial calcifications. Trace joint effusion. Mild circumferential soft tissue promine nce. IMPRESSION: 1. No acute fracture or dislocation. 2. Tricompartmental osteoarthritis, severe within the patellofemoral joint. ACT 112: Negative or not required by law. The above report was generated using voice recognition software. It may contain grammatical, syntax o r spelling errors. Electronically signed by: Rudi Vanegas M.D. 07/14/2022 2:40 PM
[2022-07-14 14:45] LABS: Lyme Ab IgG w/WB Rflx Negative (Negative); Lyme Ab IgM w/WB Rflx Negative (Negative)
--- NOTE | 2022-07-14 14:46 | XRay Report ---
LEFT KNEE 3 VIEWS CLINICAL HISTORY: Atraumatic left knee pain. FINDINGS: AP, crosstable lateral, and sunrise views of the left knee are obtained. No prior studies a re available for comparison at the time of dictation. The skeletal structures are osteopenic. No frac ture is seen. There is advanced degenerative narrowing in the lateral and patellofemoral compartments . Mild narrowing is seen in the medial compartment. There are large lateral marginal osteophytes, deg enerative beaking of the tibial spine, and patellar enthesophytes. There is a small joint effusion. S oft tissue edema is seen around the knee. There is atherosclerotic calcification of the popliteal art valentín. A calcified fabella is incidentally noted. IMPRESSION: 1. Soft tissue swelling and joint effusion with no acute bony abnormality identified. 2. Osteopenia and degenerative change as above. Electronically signed by: Manan Pinto M.D. 07/14/2022 2:44 PM
[2022-07-14 15:21] LABS: Appearance Urine Clear (Clear); Bacteria Urine Automated Negative (Negative); Bilirubin Urine Negative (Negative); Blood Urine Negative (Negative); Color Urine Dark Yellow; Epithelial Cell Urine Auto 20-30 /lpf (0-5); Glucose Urine UA Negative (Negative); Ketones Urine Trace (Negative); Leukocyte Esterase Urine Trace (Negative); Nitrite Urine Negative (Negative); Protein Urine 1+ (Negative); Urobilinogen Urine Negative (Negative); pH Urine 5.5 (4.5-7.5)
--- NOTE | 2022-07-14 16:31 | Electrocardiogram Report ---
Test Reason : Blood Pressure : / mmHG Vent. Rate : 075 BPM Atrial Rate : 075 BPM P-R Int : 146 ms QRS Dur : 080 ms QT Int : 434 ms P-R-T Axes : 071 -04 019 degrees QTc Int : 484 ms Poor data quality, interpretation may be adversely affected Normal sinus rhythm Left ventricular hypertrophy with repolarization abnormality Abnormal ECG When compared with ECG of 08-JUL-2019 14:41, Nonspecific T wave abnormality now evident in Inferior leads Confirmed by Mannie De La Paz ([id number]) on 07/14/2022 4:31:23 PM Referred By: Confirmed By:Colin De La Paz
[2022-07-14] MEDS ORDERED: ONDANSETRON INJ 2 MG/ML 2 ML VIAL IV STA (16:51)
[2022-07-14] MEDS ORDERED: MoRPHine SULFATE 4 MG/ML 1 ML CARP\\VIAL IV STA (16:51)
--- NOTE | 2022-07-14 16:56 | History & Physical Report ---
Date of Service July 14, 2022 Assessment & Plan (1) Bilateral leg pain: Plan: Worsening over the last 2-3 days. Had some pain last week when admitted that was presumed secondary to gout and did improve somewhat with prednisone but recurrent and more severe this last weekend after finishing steroids. Lyme screen in the ED was negative - no know tick bites, not frequently outdoors. Hx of OA but pain was different. Hx of gout but usually a single joint and less severe. - Admit for further evaluation - with fever and elevated WBCs, pt meets SIRs criteria, will need to r/o sepsis and cover with broad spectrum antibiotics (Vanco/cefepime), await blood culture results - Consult orthopedics to help r/o septic arthritis - ?arthrocentesis - Check inflammatory markers, autoimmune markers (CRP, ESR, EZIO, RF, uric acid) - Schedule Tylenol with prn oxycodone or morphine for breakthrough. Holding NSAIDs for now due to recent LUCAS - Eventual PT/OT but not until pain better controlled (2) Fever: (3) Leukocytosis: (4) Weakness: (5) HTN (hypertension): Plan: BP markedly elevated at present but suspect due to uncontrolled pain in the ED - Continue home anti-hypertensive regimen - Pain control as per #1 - Monitor in PCU (6) Hyperlipidemia: (7) Coronary artery disease: (8) Depression: (9) Gout: Plan Continue other home medications as appropriate. Sister updated at bedside - all questions answered. Pt seen and reviewed with attending physician, Dr. Alonzo. Plan of care discussed and as outlined above. 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 She had a recent admission for LUCAS thought secondary to ATN from IV contrast in the setting of HCTZ and olmesartan use. She was also c/o leg pain during that admission - swelling worse in one leg than other so duplex ordered to r/o DVT. Diagnosed with gout based on clinical exam and prior history and placed on prednisone which seemed to help with the pain. Discharged 6 days ago - initially felt okay at home. Two days ago pain dramatically worsened and couldn't walk. Has been in a recliner for the past two days - hasn't even been able to get up to go to the bathroom because pain was so severe. She describes pain in the joints but not really between the joints - describes sharp pain in knees, ankles, toes. Unsure when swelling started/worsened. Rates pain in RLE as 10/10 and LLE as 8/10. Also notes pain in the right wrist but less severe. Current pain is different than chronic pain from arthritis - more severe than that pain was. Has been getting injections in knees and hips for arthritis pain - initially helpful but no longer effective for knees, does seem to help hips. Wasn't aware that she had a fever at home although admits that she didn't feel great. No chills. Had vomiting/dry heaves two days ago but relates to the severity of the pain. No nausea at present, no vomiting since. No CP, SOB, dizziness, congestion, rhinorrhea. Allergies Allergy/AdvReac Type Severity Reaction Status Date / Time oxycodone AdvReac Severe syncope, Verified 07/04/22 14:11 low bp nickel AdvReac Intermediate rash and Verified 07/04/22 14:11 skin turns green Home Medications Medication Instructions Recorded Confirmed Type trazodone 100 mg tablet 100 mg PO HS ##0 09/22/11 07/14/22 History aspirin 81 mg tablet,delayed 81 mg PO QAM ##0 03/30/18 07/14/22 History release citalopram 40 mg tablet 40 mg PO HS ##0 03/30/18 07/14/22 History atorvastatin 40 mg tablet (Lipitor) 40 mg PO PM 09/06/18 07/14/22 History omeprazole magnesium 20 mg 40 mg PO BID 06/30/19 07/14/22 History tablet,delayed release (Prilosec OTC) clopidogrel 75 mg tablet (Plavix) 75 mg PO DAILY #30 tabs 07/08/19 07/14/22 Rx carvedilol phosphate 20 mg 20 mg PO DAILY 07/03/22 07/14/22 History capsule,[id number] multiphase cyclobenzaprine 10 mg tablet 10 mg PO BID PRN Muscle spasms 07/03/22 07/14/22 History hydrocodone 7.5 mg-acetaminophen 1 tab PO TID PRN Pain 07/03/22 07/14/22 History 325 mg tablet gabapentin 300 mg capsule 300 mg PO TID 07/04/22 07/14/22 History amlodipine 5 mg tablet 10 mg PO QAM 30 days #60 tabs 07/08/22 07/14/22 Rx ergocalciferol (vitamin D2) 50 mcg 50 mcg PO DAILY 1 month #30 caps 07/08/22 07/14/22 Rx (2,000 unit) capsule hydralazine 50 mg tablet 50 mg PO BID 30 days #60 tabs 07/08/22 07/14/22 Rx Past Med/Surg History Medical History Carotid artery stenosis Chronic back pain Diverticular disease Gout HTN (hypertension) Hyperlipidemia Hypertension Mesenteric artery stenosis Neck pain Surgical History H/O left cataract extraction 04/29/18-2mg IV versed given without issues History of arthroplasty of right knee History of arthroscopy chencho knee History of back surgery History of bilateral tubal ligation History of carpal tunnel surgery right History of CEA (carotid endarterectomy) History of colonoscopy w/ polypectomy History of endoscopic sinus surgery Family History Mother Family history of early CAD Social History (Updated 07/14/22 @ 17:02 by Jaquelin Mart PA-C) Smoking Status: Never smoker Second Hand Exposure: No; Hx Alcohol Use: No Hx Substance Use: No (hydrocodone) Preferred Language: Persian Communication Ability: Effective Visual Impairment: No Limitations [employer] Required: No Beliefs That Will Affect Care: None Current Living Situation: Alone Feels Safe at Home: Yes Assistive Devices: None Review of Systems Review of Systems: All systems reviewed & are unremarkable except as noted in HPI & below Constitutional: + fever and + fatigue; no chills and no sweats Eyes: no diplopia Ear, Nose, Mouth, Throat: no nasal congestion and no nasal discharge Respiratory: no cough and no dyspnea Cardiovascular: + edema; no chest pain and no palpitations Gastrointestinal: as per Subjective / HPI; no abdominal pain and no diarrhea/loose stools Genitourinary: no dysuria and no hematuria Musculoskeletal: as per Subjective / HPI and + joint pain; no back pain and no neck pain Integumentary: no rash Neurologic: + unsteadiness, + generalized weakness and + headache(s); no dizziness Physical Exam Constitutional: + in distress (due to pain) Eyes: + anicteric sclerae Neck: trachea midline Respiratory: no respiratory distress and no labored breathing Auscultation: lungs clear to auscultation bilaterally; no rales, no rhonchi and no wheezes Cardiovascular: Rate/Rhythm: regular rate and regular rhythm Vessels: radial pulses present Extremities: + pedal edema Gastrointestinal (Abdomen): Inspection/Auscultation: normal bowel sounds; abdomen not distended Percussion/Palpation: abdomen soft; abdomen nontender Musculoskeletal: Head/Neck/Chest: normocephalic and head atraumatic Limited active and passive ROM of knees and ankles due to significant pain - tender over knee and ankle joints Skin: no jaundice and no erythema right groin insertion site from recent vascular procedure - well-healed, no erythema or drainage noted Neurologic: moves all extremities; no focal motor deficits and not confused Psychiatric: Orientation: alert and oriented x 3 tearful affect due to pain Results & Data Results & Data ([facility]) Vital Signs (Past 12 Hours) Vital Signs Temp Pulse Resp BP Pulse Ox O2 Del Method 07/14/22 11:55 38.3 C H 74 18 189/61 H 96 Room Air Laboratory Results Laboratory Results - last 24 hr 07/14/22 07/14/22 07/14/22 12:20 12:20 12:20 WBC 14.38 H RBC 3.07 L Hgb 10.1 L Hct 30.3 L MCV 98.7 MCH 32.9 MCHC 33.3 RDW Std Deviation 46.5 H RDW Coeff of Geeta 13.0 Plt Count 221 MPV 11.5 Immature Gran % (Auto) 0.8 Neut % (Auto) 75.2 Lymph % (Auto) 11.3 Todd % (Auto) 11.8 Eos % (Auto) 0.7 Baso % (Auto) 0.2 Neut # (Auto) 10.80 H Lymph # (Auto) 1.63 Todd # (Auto) 1.70 H Eos # (Auto) 0.10 Baso # (Auto) 0.03 Immature Gran # (Auto) 0.12 H Sodium 135 L Potassium 3.9 Chloride 99 Carbon Dioxide 26 Anion Gap 10 BUN 21 Creatinine 1.15 Est Cr Clr Drug Dosing Not Reportable Est GFR ( Amer) 55.0 Est GFR (Non-Af Amer) 47.5 BUN/Creatinine Ratio 18.3 Glucose 122 H Calcium 9.3 Total Bilirubin 0.8 AST 13 ALT 13 Alkaline Phosphatase 71 Total Protein 6.8 Albumin 3.4 Globulin 3.4 Albumin/Globulin Ratio 1.0 Urine Color Urine Appearance Urine pH Ur Specific [place] Urine Protein Urine Glucose (UA) Urine Ketones Urine Blood Urine Nitrite Urine Bilirubin Urine Urobilinogen Ur Leukocyte Esterase Urine WBC (Auto) Urine RBC (Auto) U Hyaline Cast (Auto) U Epithel Cells (Auto) Urine Bacteria (Auto) Lyme Disease IgG Ab Negative Lyme Disease IgM Ab Negative 07/14/22 14:55 WBC RBC Hgb Hct MCV MCH MCHC RDW Std Deviation RDW Coeff of Geeta Plt Count MPV Immature Gran % (Auto) Neut % (Auto) Lymph % (Auto) Todd % (Auto) Eos % (Auto) Baso % (Auto) Neut # (Auto) Lymph # (Auto) Todd # (Auto) Eos # (Auto) Baso # (Auto) Immature Gran # (Auto) Sodium Potassium Chloride Carbon Dioxide Anion Gap BUN Creatinine Est Cr Clr Drug Dosing Est GFR ( Amer) Est GFR (Non-Af Amer) BUN/Creatinine Ratio Glucose Calcium Total Bilirubin AST ALT Alkaline Phosphatase Total Protein Albumin Globulin Albumin/Globulin Ratio Urine Color Dark Yellow Urine Appearance Clear Urine pH 5.5 Ur Specific [place] 1.020 Urine Protein 1+ H Urine Glucose (UA) Negative Urine Ketones Trace H Urine Blood Negative Urine Nitrite Negative Urine Bilirubin Negative Urine Urobilinogen Negative Ur Leukocyte Esterase Trace H Urine WBC (Auto) 1-5 Urine RBC (Auto) 5-10 H U Hyaline Cast (Auto) 5-10 H U Epithel Cells (Auto) 20-30 H Urine Bacteria (Auto) Negative Lyme Disease IgG Ab Lyme Disease IgM Ab Diagnostic Findings Chest X-ray 07/14/22 - IMPRESSION: No acute cardiopulmonary findings. Left Knee X-ray 07/14/22 - IMPRESSION: 1. Soft tissue swelling and joint effusion with no acute bony abnormality identified. 2. Osteopenia and degenerative change as above. Right Knee X-ray 07/14/22 - IMPRESSION: 1. No acute fracture or dislocation. 2. Tricompartmental osteoarthritis, severe within the patellofemoral joint Medications Administered Discontinued Medications Acetaminophen (Acetaminophen 325 Mg Tab) 650 mg PO NOW STA Stop: 07/14/22 11:59 Last Admin: 07/14/22 12:29 Dose: 650 mg Documented By: QGV Ceftriaxone Sodium (Rocephin) 2,000 mg in 70 mls @ 140 mls/hr IV NOW STA Stop: 07/14/22 14:27 Last Infusion: 07/14/22 16:53 Dose: 0 mls/hr Documented By: Admin: 07/14/22 15:32 Dose: 140 mls/hr Documented By: KERRY Sodium Chloride (Nss 1000ml) 1,000 mls @ 999 mls/hr IV .Q1H1M ONE Stop: 07/14/22 15:00 Last Infusion: 07/14/22 16:53 Dose: 0 mls/hr Documented By: Admin: 07/14/22 15:32 Dose: 999 mls/hr Documented By: KERRY (1) HTN (hypertension) Hypertension type: unspecified Qualified Code(s): I10 - Essential (primary) hypertension
[2022-07-14] MEDS ORDERED: oxyCODONE HCL IR 5 MG TAB (IMMEDIATE RELEASE) PO PRN (17:28)
--- NOTE | 2022-07-14 17:40 | Communication Note ---
Date of Service: July 14, 2022 History and physical exam performed by me. History notable for 71-year-old man with history of hypertension, hyperlipidemia, osteoarthritis, and SMA occlusion status post stenting, recent hospitalization and discharge a week ago for LUCAS following angiogram who presented with worsening pain in the knees and ankles with inability to walk. Patient reported that she had some pains in her legs during last admission and was treated with prednisone for possible gout flare which improved until she got home. Reported that a day or 2 after getting home she started having worsening pain in both knees and Ankle/foot. Severe, sharp, constant, limiting movement especially in the past 2 days that she had to crawl a few days ago. Reported some nausea and dry heaves over the weekend. Denied cough, chest pain or shortness of breath Denied dysuria, frequency, urgency Denied fevers, chills or any other complaints on review of system. Physical exam notable for elderly woman in painful distress, alert and oriented x3 Tenderness to palpation of both knees and ankle joint and with passive movements. Some mild swelling noted in the feet. No open wounds. Has some scratches in the legs. Chest is clear to auscultation bilaterally Heart rhythm is regular Abdomen was soft, nontender, normal bowel sounds. Labs notable for leukocytosis of 14,000, hemoglobin of 10, neutrophilic predominance of 10.8K/uL Chest x-ray did not show any abnormality Left knee x-ray noted soft tissue swelling and joint effusion with no acute bony abnormality. Right knee x-ray noted no acute fracture or dislocation, tricompartmental osteoarthritis. Patient meets SIRS criteria with fever, leukocytosis. Possibilities include sepsis, septic arthritis Considering history of gout in the past, gout flare is a possibility. Considering symmetric polyarthritis in both knees and ankles, other possibilities include rheumatoid and other inflammatory arthritides. We will continue broad-spectrum antibiotics for now. Follow-up blood cultures Get lactate, procalcitonin, Get EZIO, RF Lyme disease screen is negative Will appreciate orthopedic evaluation for joint aspiration for synovial fluid analysis. Pain control. Considering recent LUCAS, will hold off NSAID for today and monitor renal function. Blood pressure is significantly elevated. Likely due to pain. Optimize pain control and continue home antihypertensive. Agree with other plans as detailed by Jaquelin Mart PA-C
[2022-07-14 18:00] LABS: Uric Acid 8.7 mg/dl (2.6-7.2)
[2022-07-14 18:15] LABS: C Reactive Protein 36.01 mg/dl (0-0.5)
[2022-07-14] MEDS ORDERED: ACETAMINOPHEN 325 MG TAB ONE (19:27)
[2022-07-14] MEDS ORDERED: ACETAMINOPHEN 500 MG TAB ONE (19:32)
[2022-07-14 19:59] LABS: Appearance Urine Clear (Clear); Bacteria Urine Automated 1+ (Negative); Bilirubin Urine Negative (Negative); Blood Urine Trace (Negative); Cast Urine Automated 0 /lpf (0-5); Color Urine Yellow; Epithelial Cell Urine Auto >30 /lpf (0-5); Glucose Urine UA Negative (Negative); Ketones Urine Negative (Negative); Leukocyte Esterase Urine Trace (Negative); Nitrite Urine Negative (Negative); Protein Urine Trace (Negative); RBC Urine Automated 0-4 /hpf (0-4); Specific Gravity Urine 1.012 (1.000-1.030); Urobilinogen Urine Negative (Negative); pH Urine 5.5 (4.5-7.5)
[2022-07-14] MEDS: CEFEPIME 2,000 MG in SYRINGE 0 ML IV SCH (20:43)
[2022-07-14] MEDS ORDERED: VANCOMYCIN CONSULT ACTIVE PRN (21:33)
[2022-07-14] MEDS ORDERED: VANCOMYCIN HCL 1,750 MG in SODIUM CHLORIDE 0.9% 500 ML IV ONE (21:33)
[2022-07-15] MEDS: hydrALAZINE TAB 50 MG TAB PO SCH ×2 (01:17→08:06)
[2022-07-15] MEDS: ATORVASTATIN 40 MG TAB PO SCH ×2 (01:17→21:12)
[2022-07-15] MEDS: traZODone HCL 100 MG TAB PO SCH ×2 (01:17→21:11)
[2022-07-15] MEDS: CITALOPRAM 40 MG TAB PO SCH ×2 (01:17→21:11)
[2022-07-15] MEDS: PANTOprazole 40 MG TAB PO SCH ×3 (01:17→21:11)
[2022-07-15] MEDS: GABAPENTIN 300 MG CAP PO SCH ×4 (01:17→21:11)
[2022-07-15] MEDS: CEFEPIME 2,000 MG in SYRINGE 0 ML IV SCH ×3 (04:44→22:24)
[2022-07-15] MEDS: MoRPHine SULFATE 4 MG/ML 1 ML CARP\\VIAL IV PRN (04:48)
[2022-07-15] MEDS: ACETAMINOPHEN 500 MG TAB PO SCH ×3 (05:04→21:12)
[2022-07-15 07:33] LABS: Hematocrit (blood only) 25.9 % (34.1-44.9); Hemoglobin 8.6 g/dl (12.0-16.0); Mean Corpuscular Hemoglobin 33.1 pg (25.0-34.0); Mean Corpuscular Hgb Conc 33.2 g/dL (32.0-36.0); Mean Corpuscular Volume 99.6 fL (80.0-100.0); Mean Platelet Volume 11.1 fL (9.4-12.3); Platelet Count 164 K/uL (130-400); RDW Coefficient of Variation 12.7 % (11.5-14.5); RDW Standard Deviation 46.7 fL (36.4-46.3); White Blood Count 8.34 K/ul (4.8-10.8)
[2022-07-15 07:53] LABS: BUN Creatinine Ratio 18.2 (10-20); Calcium 8.7 mg/dl (8.5-10.1); Creatinine Clr Calc Pharmacy 53.9 ml/min; Est GFR (Non-African American) 56.9 ml/min; Potassium 3.4 mmol/L (3.5-5.1)
[2022-07-15] MEDS: VANCOMYCIN HCL 1,250 MG in SODIUM CHLORIDE 0.9% 250 ML IV SCH (07:59)
[2022-07-15] MEDS: ASPIRIN 81 MG ECTAB PO SCH (08:06)
[2022-07-15] MEDS: amLODIPine BESYLATE 5 MG TAB PO SCH (08:06)
[2022-07-15] MEDS: ENOXAPARIN INJ 40 MG/0.4 ML SYR SQ SCH (08:06)
[2022-07-15] MEDS: CLOPIDOGREL BISULFATE 75 MG TAB PO SCH (08:06)
--- NOTE | 2022-07-15 09:03 | Pharmacy Report ---
Pharmacy PK ABX Note - Date of Service July 15, 2022 - Assessment and Plan Assessment 71 year old F receiving vancomycin/cefepime for treatment of possible septic arthritis. Pertinent microbiologic data includes: blood and urine cultures pending, per provider note, await ortho eval for possible joint aspiration . Day # 2 of antimicrobial therapy. Plan Vancomycin * Loading dose: 1750 mg IV x 1 (administered 07/14 @ 2300) * Maintenance dose: 1250 mg IV every 24 hours * Regimen is predicted to achieve target AUC/SHEFALI of 400-600 mg/L.hr * Random level ordered for: 07/17/22 Pharmacy will continue to follow and will adjust dose/frequency as necessary. Thank you. Pharmacy has transitioned to AUC monitoring for vancomycin. AUC/SHEFALI is the preferred PK/PD target and is associated with decreased risk of nephrotoxicity compared to traditional trough targets.
--- NOTE | 2022-07-15 10:02 | Hospitalist Progress Note ---
Date of Service July 15, 2022 Assessment & Plan (1) Bilateral leg pain: (2) Fever: (3) Gout: (4) Leukocytosis: (5) Weakness: Plan: History of gout History of arthritis (knees and hip), gets intra-articular injection (steroid) Presents with worsening bilateral knee and ankle pain since discharge a week ago Patient met SIRS criteria with fever, leukocytosis. Possibilities include sepsis, septic arthritis, gout flare Considering symmetric polyarthritis in both knees and ankles, other possibilities include rheumatoid and other inflammatory arthritides. We will continue broad-spectrum antibiotics for now. If blood cultures remain negative tomorrow, stop antibiotics ESR, CRP elevated Ortho consulted for arthrocentesis Fluid analysis show WBC of 8K. Follow up remaining results Optimize pain control. Trial of ketorolac Reports mother had medicine induced lupus Stop hydralazine started last admission Follow up EZIO, RF, ANCA, dsDNA Lyme disease screen is negative (6) HTN (hypertension): Plan: Hydralazine stopped as above Optimize pain control Patient not able to bring her carvedilol phosphate 20mg daily. Will do coreg 6.25mg bid for now Continue amlodipine (7) Hyperlipidemia: (8) Coronary artery disease: Plan: Continue ASA, plavix, Atorvastatin (9) Depression: Plan: Continue home meds Plan Get PT/OT eval Code Status: Full code DVT Prophylaxis: Lovenox Admission and Anticipated Discharge Date Admission Date: July 14, 2022 Subjective Patient seen and examined Still reports bilateral knee and ankle pain Reported pain is mildly improved today, worse with movement. Denied any fever, chills, nausea, vomiting. Denied any chest pain, cough, shortness of breath. Denied any dysuria, freq, urgency Physical Exam Constitutional: + well hydrated; no acute distress Eyes: PERRL, conjunctivae normal, anicteric sclerae ENMT: external ear and nose normal, oropharynx normal Respiratory: normal respiratory effort, lungs clear to auscultation Cardiovascular: Rate/Rhythm: regular rate and regular rhythm S1 s2 Gastrointestinal (Abdomen): normal bowel sounds, soft, nontender, no hepatosplenomegaly Musculoskeletal: Knees: No tenderness today to palpation.Pain with passive ROM Ankles: mild tenderness and swelling. Pain with passive ROM Neurologic: PERRL, EOMI, accommodation nl, no face palsy, no dysarthria Psychiatric: A+Ox3, euthymic affect Results & Data Results & Data ([facility]) Vital Signs (Past 12 Hours) Vital Signs Temp Pulse Pulse Resp BP Pulse Ox O2 Del Method 07/15/22 09:15 83 07/15/22 08:25 37.0 C 88 18 168/89 H 97 Room Air 07/15/22 05:39 179/50 H 07/15/22 04:49 37.1 C 89 18 199/59 H 91 Room Air 07/15/22 01:16 188/58 H 07/14/22 23:49 36.7 C 72 18 172/103 H 91 Room Air Laboratory Results Abnormal lab results 07/14/22 07/14/22 07/14/22 Range/Units 12:20 12:20 14:55 RBC (3.93-5.22) M/uL Hgb (12.0-16.0) g/dl Hct (34.1-44.9) % RDW Std Deviation (36.4-46.3) fL ESR 62 H (0-30) mm/hr Potassium (3.5-5.1) mmol/L Glucose (70-99(Fasting)) mg/dl Uric Acid 8.7 H (2.6-7.2) mg/dl C-Reactive Protein 36.01 H (0-0.5) mg/dl Urine Protein 1+ H (Negative) Urine Ketones Trace H (Negative) Urine Blood (Negative) Ur Leukocyte Esterase Trace H (Negative) Urine RBC (Auto) 5-10 H (0-4) /hpf U Hyaline Cast (Auto) 5-10 H (0-5) /lpf U Epithel Cells (Auto) 20-30 H (0-5) /lpf Urine Bacteria (Auto) (Negative) Synovial WBC (Auto) (0-200) /ul 07/14/22 07/15/22 07/15/22 Range/Units 19:38 07:03 07:03 RBC 2.60 L (3.93-5.22) M/uL Hgb 8.6 L (12.0-16.0) g/dl Hct 25.9 L (34.1-44.9) % RDW Std Deviation 46.7 H (36.4-46.3) fL ESR (0-30) mm/hr Potassium 3.4 L (3.5-5.1) mmol/L Glucose 119 H (70-99(Fasting)) mg/dl Uric Acid (2.6-7.2) mg/dl C-Reactive Protein (0-0.5) mg/dl Urine Protein Trace H (Negative) Urine Ketones (Negative) Urine Blood Trace H (Negative) Ur Leukocyte Esterase Trace H (Negative) Urine RBC (Auto) (0-4) /hpf U Hyaline Cast (Auto) (0-5) /lpf U Epithel Cells (Auto) >30 H (0-5) /lpf Urine Bacteria (Auto) 1+ H (Negative) Synovial WBC (Auto) (0-200) /ul 07/15/22 Range/Units 11:40 RBC (3.93-5.22) M/uL Hgb (12.0-16.0) g/dl Hct (34.1-44.9) % RDW Std Deviation (36.4-46.3) fL ESR (0-30) mm/hr Potassium (3.5-5.1) mmol/L Glucose (70-99(Fasting)) mg/dl Uric Acid (2.6-7.2) mg/dl C-Reactive Protein (0-0.5) mg/dl Urine Protein (Negative) Urine Ketones (Negative) Urine Blood (Negative) Ur Leukocyte Esterase (Negative) Urine RBC (Auto) (0-4) /hpf U Hyaline Cast (Auto) (0-5) /lpf U Epithel Cells (Auto) (0-5) /lpf Urine Bacteria (Auto) (Negative) Synovial WBC (Auto) 8031 H (0-200) /ul (1) HTN (hypertension) Hypertension type: unspecified Qualified Code(s): I10 - Essential (primary) hypertension
[2022-07-15] MEDS ORDERED: ETHYL CHLORIDE AER SPR 100 ML CAN EXT ONE (10:13)
--- NOTE | 2022-07-15 11:58 | Orthopedic Consultation ---
Date of Consultation July 15, 2022 Assessment & Plan (1) Polyarticular joint involvement: 71-year-old female with history of osteoarthritis bilateral knees now with polyarticular pain in the knees and ankles. History of gout.Initial white count was 14.3 which is now down to 8.3. Sed rate on admission was 62 and CRP was 36. Bilateral knee x-ray showing mild to moderate osteoarthritis mainly in the lateral compartments along with patellofemoral area. Trace effusion in the right knee and small effusion in the left knee. No ankle films done at this time. Blood cultures pending. EZIO and RF pending. Lyme's negative. Patient currently afebrile since 1900 hrs. last night. Differential including septic arthritis, gout, rheumatoid arthritis. Patient does not examine overtly as infection. Especially with her knees. Ankles with mild swelling and mild erythema but with polyarticular pain, infe ction less likely. I have spoken to Dr. Adkins. Patient is currently on Lovenox as well as Plavix. He was hoping for aspiration of one of the knees for synovial inspection. Obviously we will not try to aspirate all 4 joints at this time. I have also discussed this with Dr. uTrner who is on-call. He is in agreement and we will plan on aspiration of the left knee joint since it has a larger effusion compared to the right. I have discussed this with the patient. She is in agreement with aspiration of the left knee. Risks of the aspiration were discussed with the patient including but not all-inclusive to bleeding and/or infection. Possible decreased range of motion of the left knee secondary to swelling, inability to obtain fluid. At that time, an aspiration site was chosen at the superiolateral aspect of the knee joint. The site was marked and then cleaned with 2 alcohol swabs and 3 Betadine swabs. The Betadine was let the dry. At that time the aspiration site was anesthetized with ethyl chloride and a 20-gauge needle was then inserted into the supra patellar pouch. I was able to obtain 11 cc of bright yellow synovial fluid that was slightly cloudy. The needle was then removed and a 4 x 4 was placed over the aspiration site and pressure was held for approximately 1 minute. A Band-Aid was then placed over the aspiration site. The patient tolerated procedure quite well. Synovial fluid from the left knee will be sent for cell count, culture, and crystal analysis. Thank you for this consult Supervising Physician Co-Signing Physician Notes Agree with above. Based on patient's aspiration of 8000 cells 95% neutrophils in the setting of positive monosodium urate crystals this is consistent with a gouty flare. Gram stain negative. At this point there is no concern for septic arthritis. Would recommend treatment for gout by primary team as well as follow-up with rheumatology. We will follow patient's cultures. No further orthopedic intervention at this time. We will otherwise sign off at this time. History of Present Illness Reason for Consultation: Polyarticular pain (Knee/Ankle) Attending Physician: Bere Alonzo MD History of Present Illness Patient is 71-year-old female with history of hypertension, hyperlipidemia, osteoarthritis, and SMA occlusion status post stenting, recent hospitalization and discharge a week ago for LUCAS following angiogram who presented with worsening pain in the knees and ankles with inability to walk. Patient states that she has osteoarthritis of both of her knees of which she sees [facility] orthopedics for injections. The last injection she had were approximately 2 months ago and states that she is probably not going to do any more injections secondary to the fact that they are no longer working as well as they did. She states that she was discharged on Thursday of last week and was doing fine at home. She had had pain in her knees and ankles during her stay but was started on a steroid which did help her. She states that she was doing fairly well through Thursday of this past week however on Thursday she began having increased pain in both of her knees and ankles and started having difficulty ambulating. It was to the point where just touching the knees were incredibly tender and she states that trying to lift her legs off the bed was very painful. She came into the emergency room here at [facility] and was seen by the staff. She was noted to have an increased white count and was febrile. She was examined by the [facility] hospitalist service and was admitted for further care. Question of septic arthritis versus the possibility of a polyarticular inflammatory response/gout. Patient states that she has had gout in her fingers in the past but has never had any gout in her knees. She was started on vancomycin at the time of admission as well as cefepime. Seeing the patient today, she states that she is much better since yesterday. She states that she is able to move her lower extremities little bit better and that palpation does not cause pain. She states that it still is very difficult to weight-bear. Allergies Allergy/AdvReac Type Severity Reaction Status Date / Time oxycodone AdvReac Severe syncope, Verified 07/04/22 14:11 low bp nickel AdvReac Intermediate rash and Verified 07/04/22 14:11 skin turns green Home Medications Medication Instructions Recorded Confirmed Type trazodone 100 mg tablet 100 mg PO HS ##0 09/22/11 07/14/22 History aspirin 81 mg tablet,delayed 81 mg PO QAM ##0 03/30/18 07/14/22 History release citalopram 40 mg tablet 40 mg PO HS ##0 03/30/18 07/14/22 History atorvastatin 40 mg tablet (Lipitor) 40 mg PO PM 09/06/18 07/14/22 History omeprazole magnesium 20 mg 40 mg PO BID 06/30/19 07/14/22 History tablet,delayed release (Prilosec OTC) clopidogrel 75 mg tablet (Plavix) 75 mg PO DAILY #30 tabs 07/08/19 07/14/22 Rx carvedilol phosphate 20 mg 20 mg PO DAILY 07/03/22 07/14/22 History capsule,[id number] multiphase cyclobenzaprine 10 mg tablet 10 mg PO BID PRN Muscle spasms 07/03/22 07/14/22 History hydrocodone 7.5 mg-acetaminophen 1 tab PO TID PRN Pain 07/03/22 07/14/22 History 325 mg tablet gabapentin 300 mg capsule 300 mg PO TID 07/04/22 07/14/22 History amlodipine 5 mg tablet 10 mg PO QAM 30 days #60 tabs 07/08/22 07/14/22 Rx ergocalciferol (vitamin D2) 50 mcg 50 mcg PO DAILY 1 month #30 caps 07/08/22 07/14/22 Rx (2,000 unit) capsule hydralazine 50 mg tablet 50 mg PO BID 30 days #60 tabs 07/08/22 07/14/22 Rx Patient History Medical History (Updated 07/15/22 @ 12:00 by Amos Fuentes PA-C) Carotid artery stenosis Chronic back pain Diverticular disease Gout HTN (hypertension) Hyperlipidemia Hypertension Mesenteric artery stenosis Neck pain Surgical History H/O left cataract extraction 04/29/18-2mg IV versed given without issues History of arthroplasty of right knee History of arthroscopy chencho knee History of back surgery History of bilateral tubal ligation History of carpal tunnel surgery right History of CEA (carotid endarterectomy) History of colonoscopy w/ polypectomy History of endoscopic sinus surgery Family History Mother Family history of early CAD Social History Smoking Status: Never smoker Second Hand Exposure: No; Hx Alcohol Use: No Hx Substance Use: No Preferred Language: Slovak Communication Ability: Effective Visual Impairment: No Limitations Tablet Repair Required: No Beliefs That Will Affect Care: None marital status: Single Current Living Situation: Alone Feels Safe at Home: Yes Safety Concerns: Feels Safe At This Time Assistive Devices: None Physical Exam Physical Exam: Patient is a 71-year-old female who appears her stated age. Alert and oriented x3. No acute distress. Pleasant and cooperative. On examination of her bilateral lower extremities with attention to her knees and ankles. Her knees are not overtly swollen. She has a mild effusion on the left knee and no discernible effusion of the right knee. Both knees or mildly warm to the touch. Left knee is likely little bit warmer than the right knee. There is no erythema. The patient is able to do active heel slides bending the knees but causes her moderate pain. I am able to palpate both knees at this time without causing her any pain. She has a noted older looking scratch over her left knee in the superior portion above the patella. She states this is from her cat. I am able to take her left knee through gentle passive range of motion. She has some mild crepitus. She is having pain with range of motion but is not severe. I can flex the knee to approximately 75 degrees from full extension. The right knee has a little bit worse pain than the left. Although there is no palpable effusion. Again no erythema is noted. I am able to take her through passive range of motion of the right knee and can flex it to approximately 55 to 60 degrees with a little bit more discomfort than the left. No obvious crepitus. Both knees feel stable as far as ligamentous stability. On examination of her ankles, they are notably swollen but not tense. Mild erythema. I am able to palpate both ankles with only mild amount of pain noted. She is able to take the ankle through passive and active range of motion with mild to moderate pain. She denies decreased sensation. There is no gross motor or sensory loss seen at this time. Results & Data ([facility]) Vital Signs (Past 12 Hours) Vital Signs Temp Pulse Pulse Resp BP Pulse Ox O2 Del Method 07/15/22 09:15 83 07/15/22 08:25 37.0 C 88 18 168/89 H 97 Room Air 07/15/22 05:39 179/50 H 07/15/22 04:49 37.1 C 89 18 199/59 H 91 Room Air 07/15/22 01:16 188/58 H 07/14/22 23:49 36.7 C 72 18 172/103 H 91 Room Air Laboratory Results Laboratory Results WBC 8.34 K/ul (4.8-10.8) 07/15/22 07:03 RBC 2.60 M/uL (3.93-5.22) L 07/15/22 07:03 Hgb 8.6 g/dl (12.0-16.0) L 07/15/22 07:03 Hct 25.9 % (34.1-44.9) L 07/15/22 07:03 MCV 99.6 fL (80.0-100.0) 07/15/22 07:03 MCH 33.1 pg (25.0-34.0) 07/15/22 07:03 MCHC 33.2 g/dL (32.0-36.0) 07/15/22 07:03 RDW Std Deviation 46.7 fL (36.4-46.3) H 07/15/22 07:03 RDW Coeff of Geeta 12.7 % (11.5-14.5) 07/15/22 07:03 Plt Count 164 K/uL (130-400) 07/15/22 07:03 MPV 11.1 fL (9.4-12.3) 07/15/22 07:03 Immature Gran % (Auto) 0.8 % 07/14/22 12:20 Neut % (Auto) 75.2 % 07/14/22 12:20 Lymph % (Auto) 11.3 % 07/14/22 12:20 Baker % (Auto) 11.8 % 07/14/22 12:20 Eos % (Auto) 0.7 % 07/14/22 12:20 Baso % (Auto) 0.2 % 07/14/22 12:20 Neut # (Auto) 10.80 K/uL (1.4-6.5) H 07/14/22 12:20 Lymph # (Auto) 1.63 K/uL (1.2-3.4) 07/14/22 12:20 Baker # (Auto) 1.70 K/uL (0.24-0.82) H 07/14/22 12:20 Eos # (Auto) 0.10 K/uL (0-0.50) 07/14/22 12:20 Baso # (Auto) 0.03 K/uL (0-0.2) 07/14/22 12:20 Immature Gran # (Auto) 0.12 K/uL (0.00-0.02) H 07/14/22 12:20 ESR 62 mm/hr (0-30) H 07/14/22 12:20 Sodium 137 mmol/L (136-145) 07/15/22 07:03 Potassium 3.4 mmol/L (3.5-5.1) L 07/15/22 07:03 Chloride 104 mmol/L (98-107) 07/15/22 07:03 Carbon Dioxide 27 mmol/L (21-32) 07/15/22 07:03 Anion Gap 6 (3-11) 07/15/22 07:03 BUN 18 mg/dl (6-23) 07/15/22 07:03 Creatinine 0.99 mg/dl (0.6-1.2) 07/15/22 07:03 Est Cr Clr Drug Dosing 53.9 ml/min 07/15/22 07:03 Est GFR ( Amer) 66.0 ml/min 07/15/22 07:03 Est GFR (Non-Af Amer) 56.9 ml/min 07/15/22 07:03 BUN/Creatinine Ratio 18.2 (10-20) 07/15/22 07:03 Glucose 119 mg/dl (70-99(Fasting)) H 07/15/22 07:03 Lactate 0.9 mmol/L (0.4-2.0) 07/14/22 19:42 Uric Acid 8.7 mg/dl (2.6-7.2) H 07/14/22 12:20 Calcium 8.7 mg/dl (8.5-10.1) 07/15/22 07:03 Total Bilirubin 0.8 mg/dl (0.2-1.0) 07/14/22 12:20 AST 13 U/L (13-39) 07/14/22 12:20 ALT 13 U/L (7-52) 07/14/22 12:20 Alkaline Phosphatase 71 U/L (34-104) 07/14/22 12:20 C-Reactive Protein 36.01 mg/dl (0-0.5) H 07/14/22 12:20 Total Protein 6.8 gm/dl (6.0-8.3) 07/14/22 12:20 Albumin 3.4 gm/dl (3.4-5.0) 07/14/22 12:20 Globulin 3.4 gm/dl (2.5-4.0) 07/14/22 12:20 Albumin/Globulin Ratio 1.0 (0.9-2) 07/14/22 12:20 Procalcitonin 0.36 ng/ml (0-0.5) 07/14/22 12:20 Urine Color Yellow 07/14/22 19:38 Urine Appearance Clear (Clear) 07/14/22 19:38 Urine pH 5.5 (4.5-7.5) 07/14/22 19:38 Ur Specific [place] 1.012 (1.000-1.030) 07/14/22 19:38 Urine Protein Trace (Negative) H 07/14/22 19:38 Urine Glucose (UA) Negative (Negative) 07/14/22 19:38 Urine Ketones Negative (Negative) 07/14/22 19:38 Urine Blood Trace (Negative) H 07/14/22 19:38 Urine Nitrite Negative (Negative) 07/14/22 19:38 Urine Bilirubin Negative (Negative) 07/14/22 19:38 Urine Urobilinogen Negative (Negative) 07/14/22 19:38 Ur Leukocyte Esterase Trace (Negative) H 07/14/22 19:38 Urine WBC (Auto) 1-5 /hpf (0-5) 07/14/22 19:38 Urine RBC (Auto) 0-4 /hpf (0-4) 07/14/22 19:38 U Hyaline Cast (Auto) 0 /lpf (0-5) 07/14/22 19:38 U Epithel Cells (Auto) >30 /lpf (0-5) H 07/14/22 19:38 Urine Bacteria (Auto) 1+ (Negative) H 07/14/22 19:38 Fluid Comment 07/15/22 11:40 Anaplasma Smear See Comment 07/14/22 12:20 Babesia Smear See Comment 07/14/22 12:20 Lyme Disease IgG Ab Negative (Negative) 07/14/22 12:20 Lyme Disease IgM Ab Negative (Negative) 07/14/22 12:20 SARS-CoV-2, RNA, NAAT NEGATIVE (NEGATIVE) 07/14/22 19:18 Impressions Knee X-Ray 07/14/22 14:00 LEFT KNEE 3 VIEWS CLINICAL HISTORY: Atraumatic left knee pain. FINDINGS: AP, crosstable lateral, and sunrise views of the left knee are obtained. No prior studies are available for comparison at the time of dictation. The skeletal structures are osteopenic. No fracture is seen. There is advanced degenerative narrowing in the lateral and patellofemoral compartments. Mild narrowing is seen in the medial compartment. There are large lateral marginal osteophytes, degenerative beaking of the tibial spine, and patellar enthesophytes. There is a small joint effusion. Soft tissue edema is seen around the knee. There is atherosclerotic calcification of the popliteal artery. A calcified fabella is incidentally noted. IMPRESSION: 1. Soft tissue swelling and joint effusion with no acute bony abnormality identified. 2. Osteopenia and degenerative change as above. XR knee RT 3V HISTORY: 71 years-old Female b/l knee pain chronic bilateral knee pain in a patient with fever COMPARISON: Left knee radiographs of same day TECHNIQUE: 3 views of the right knee FINDINGS: Chondrocalcinosis. Mild lateral with mild to moderate medial and severe patell ofemoral compartment osteoarthritis. Arterial calcifications. Trace joint effusion. Mild circumferential soft tissue prominence. IMPRESSION: 1. No acute fracture or dislocation. 2. Tricompartmental osteoarthritis, severe within the patellofemoral joint. ACT 112: Negative or not required by law. The above report was generated using voice recognition software. It may contain grammatical, syntax or spelling errors.
[2022-07-15 12:23] LABS: Appearance Synovial Fluid Cloudy; Color Synovial Fluid Pale Yellow; Mononuclear WBC Synovial 4.9 %; Polynuclear WBC Synovial 95.1 %; RBC Synovial Fluid Auto < 2000 /uL; Source Synovial Fluid Knee; WBC Synovial Fluid Auto 8031 /ul (0-200)
[2022-07-15] MEDS: carvediloL 6.25 MG TAB PO SCH ×2 (13:36→21:11)
[2022-07-15] MEDS ORDERED: KETOROLAC TROMETHAMINE 15 MG/ML VIAL IV ONE (14:26)
[2022-07-15] MEDS: predniSONE 20 MG TAB PO SCH (17:02)
[2022-07-16] MEDS ORDERED: carvediloL 3.125 MG TAB PO SCH (02:00)
[2022-07-16] MEDS: ACETAMINOPHEN 500 MG TAB PO SCH ×3 (05:39→22:13)
[2022-07-16 05:59] LABS: Hematocrit (blood only) 25.5 % (34.1-44.9); Hemoglobin 8.1 g/dl (12.0-16.0); Mean Corpuscular Hemoglobin 31.9 pg (25.0-34.0); Mean Corpuscular Hgb Conc 31.8 g/dL (32.0-36.0); Mean Corpuscular Volume 100.4 fL (80.0-100.0); Platelet Count 177 K/uL (130-400); RDW Coefficient of Variation 12.2 % (11.5-14.5); RDW Standard Deviation 45.2 fL (36.4-46.3); Red Blood Count 2.54 M/uL (3.93-5.22)
[2022-07-16 06:42] LABS: BUN Creatinine Ratio 20.6 (10-20); C Reactive Protein 23.95 mg/dl (0-0.5); Creatinine Clr Calc Pharmacy 40.8 ml/min; Est GFR (Non-African American) 40.6 ml/min
[2022-07-16] MEDS ORDERED: carvediloL 3.125 MG TAB PO ONE (08:34)
--- NOTE | 2022-07-16 08:52 | XRay Report ---
RIGHT ANKLE 2 VIEWS HISTORY: Right ankle pain. Gout COMPARISON: None. FINDINGS: There is no fracture or dislocation. Mild soft tissue swelling. The bones are osteopenic. S ubchondral cystic changes at the distal tibia consistent with osteoarthritis. Otherwise, no erosive c hanges identified. A plantar heel spur is noted. Mild vascular calcifications. No radiopaque foreign bodies. IMPRESSION: 1. Mild soft tissue swelling within the right ankle. 2. No acute fracture or dislocation. 3. Mild degenerative changes at the tibiotalar joint. 4. Plantar heel spur. ACT 112: Negative or not required by law. Electronically signed by: Daniel Lopez M.D. 07/16/2022 8:51 AM
--- NOTE | 2022-07-16 08:53 | XRay Report ---
LEFT ANKLE 2 VIEWS CLINICAL HISTORY: Gout. FINDINGS: AP and lateral views of the left ankle are obtained. No prior studies are available for [facility] at the time of dictation. The skeletal structures are osteopenic. No fracture is seen. The an kle mortise is intact. There is no significant joint effusion. No erosive disease is seen. There is a plantar heel spur. Mild soft tissue swelling is present throughout the left lower extremity. No soft tissue calcifications are identified. IMPRESSION: Mild soft tissue swelling with no acute bony abnormality identified. Electronically signed by: Manan Pinto M.D. 07/16/2022 8:52 AM
[2022-07-16] MEDS: CHOLECALCIFEROL 1,000 UNITS 25 MCG TAB PO SCH (08:55)
[2022-07-16] MEDS: GABAPENTIN 300 MG CAP PO SCH ×3 (08:55→20:10)
[2022-07-16] MEDS: PANTOprazole 40 MG TAB PO SCH ×2 (08:55→20:10)
[2022-07-16] MEDS: CLOPIDOGREL BISULFATE 75 MG TAB PO SCH (08:55)
[2022-07-16] MEDS: amLODIPine BESYLATE 5 MG TAB PO SCH (08:55)
[2022-07-16] MEDS: VANCOMYCIN HCL 1,250 MG in SODIUM CHLORIDE 0.9% 250 ML IV SCH (08:55)
[2022-07-16] MEDS: predniSONE 20 MG TAB PO SCH (08:55)
[2022-07-16] MEDS: ASPIRIN 81 MG ECTAB PO SCH (08:56)
[2022-07-16] MEDS: ENOXAPARIN INJ 40 MG/0.4 ML SYR SQ SCH (08:56)
[2022-07-16] MEDS: CEFEPIME 2,000 MG in SYRINGE 0 ML IV SCH (10:55)
[2022-07-16 11:22] LABS: Anti Nuclear Antibody Screen NEGATIVE (NEGATIVE); Rheumatoid Factor <14 IU/mL (<14)
[2022-07-16] MEDS: cloNIDine HCL 0.1 MG TAB PO PRN ×2 (12:54→19:30)
--- NOTE | 2022-07-16 15:30 | Hospitalist Progress Note ---
Date of Service July 16, 2022 Assessment & Plan (1) Bilateral leg pain: (2) Fever: (3) Gout: (4) Leukocytosis: (5) Weakness: Plan: Polyarticular gout flare-POA H/O gout H/P arthritis (knees and hip), S/P intra-articular steroid injections SIRS Less likely sepsis/septic arthritis--Cultures negative S/P Left knee Joint aspiration Synovial fluid showed monosodium urate crystals --Blood Cultures: negative to date -- Left Knee Synovial fluid culture Negative --RA <14 EZIO Negative Lyme disease screen is negative ANCA and double-stranded DNA antibody pending Empiric antibiotics cefepime, vancomycin discontinued Hydralazine discontinued as patient has family history of drug-induced lupus Appreciate orthopedics input Discussed with rheumatology on 07/16/22 Continue prednisone taper course: 40 mg for 3 days, 30 mg for 3 days, 20 mg for 3 days, 10 mg for 3 days, 5 mg daily Needs follow-up with rheumatology as outpatient Consider to start on allopurinol as outpatient PT recommends Rehab Patient prefers to be discharged home with Home Health (6) HTN (hypertension): Plan: Hydralazine discontinued as above Optimize pain control Plan to resume extended release carvedilol 20 mg daily tomorrow Continue Coreg 12.5mg bid today Continue amlodipine Clonidine PRN Steroids, Pain likely contributing to elevated blood pressure (7) Hyperlipidemia: (8) Coronary artery disease: Plan: Continue ASA, plavix, Atorvastatin (9) Depression: Plan: Continue home meds Plan Code Status: Full code DVT Px: Lexinox SQ Admission and Anticipated Discharge Date Admission Date: July 14, 2022 Subjective Patient is seen and examined at bedside States having bilateral knee pain which is slowly improving Reports ambulatory dysfunction secondary to pain Denies any chest pain, shortness of breath, dizziness, nausea, abdominal pain Discussed with rheumatology today Review of Systems Review of Systems: All systems reviewed & are unremarkable except as noted in Subjective Physical Exam Physical Exam: Physical Exam: Vitals signs as noted above General Appearance:Moderately built and nourished, no apparent distress Head: normocephalic, Atraumatic Eyes: normal inspection, EOMI Neck: supple, Trachea midline Respiratory/Chest: Normal breath sounds, CTA, No accessory muscle use Cardiovascular: S1, S2, No murmur Abdomen/GI:Soft, Non tender, Bowel sounds present Extremities/Musculoskeletal:normal inspection, no edema, B/L Knee tenderness, + UR arthritic changes Neurologic/Psych:AAOX3, grossly no focal neurological deficits Skin: normal color, warm Results & Data Results & Data ([facility]) Vital Signs (Past 12 Hours) Vital Signs Temp Pulse Pulse Resp BP Pulse Ox O2 Del Method 07/16/22 12:00 36.9 C 79 18 217/75 H 96 Room Air 07/16/22 10:02 67 07/16/22 08:22 36.9 C 72 16 182/69 H 93 Room Air Laboratory Results Short CBC 07/16/22 Range/Units 05:34 WBC 7.70 (4.8-10.8) K/ul Hgb 8.1 L (12.0-16.0) g/dl Hct 25.5 L (34.1-44.9) % Plt Count 177 (130-400) K/uL BMP 07/16/22 05:34 Sodium 138 Potassium 4.0 Chloride 106 Carbon Dioxide 25 BUN 27 H Creatinine 1.31 H D Glucose 148 H Calcium 9.0 (1) HTN (hypertension) Hypertension type: unspecified Qualified Code(s): I10 - Essential (primary) hypertension
--- NOTE | 2022-07-16 17:27 | Communication Note ---
Date of Service: July 16, 2022 Patient seen this afternoon in follow-up after aspiration. She is doing quite well today. She feels much better. There is started a prednisone taper. She states that she has been up in the chair off and on quite a bit and she has been ambulating. She is feeling overall better. She has minimal discomfort in her left knee at this point she continues to have a little more pain in her right knee which was her worst side. Lessening pain in her ankles although she is continues to have some mild swelling noted. Rheumatoid factor was less than 14 and EZIO was negative. Cultures continue to remain negative from her aspirate. Blood cultures remaining negative. White count continues to decrease and that she has had a slight decrease in her ESR and CRP. Orthopedics will sign off at this time. She will continue her prednisone taper. [facility] with [facility] group of her choice in the future for any needs that she will have with her gout or her osteoarthritis. Patient can continue to be weightbearing as tolerated. Please call with any questions.
[2022-07-16] MEDS: traZODone HCL 100 MG TAB PO SCH (20:10)
[2022-07-16] MEDS: ATORVASTATIN 40 MG TAB PO SCH (20:10)
[2022-07-16] MEDS: CITALOPRAM 40 MG TAB PO SCH (20:10)
[2022-07-16] MEDS ORDERED: Nursing to Pharmacy Communication SCH (20:30)
[2022-07-16] MEDS ORDERED: carvediloL 12.5 MG TAB PO SCH (21:00)
[2022-07-16] MEDS: MoRPHine SULFATE 4 MG/ML 1 ML CARP\\VIAL IV PRN (22:16)
[2022-07-17] MEDS: ACETAMINOPHEN 500 MG TAB PO SCH ×3 (06:45→22:30)
[2022-07-17 07:51] LABS: Hematocrit (blood only) 25.9 % (34.1-44.9); Hemoglobin 8.5 g/dl (12.0-16.0); Mean Corpuscular Hemoglobin 32.2 pg (25.0-34.0); Mean Corpuscular Hgb Conc 32.8 g/dL (32.0-36.0); Mean Corpuscular Volume 98.1 fL (80.0-100.0); Mean Platelet Volume 11.2 fL (9.4-12.3); Platelet Count 196 K/uL (130-400); RDW Coefficient of Variation 12.5 % (11.5-14.5); Red Blood Count 2.64 M/uL (3.93-5.22); White Blood Count 8.96 K/ul (4.8-10.8)
[2022-07-17] MEDS: CLOPIDOGREL BISULFATE 75 MG TAB PO SCH (08:09)
[2022-07-17] MEDS: amLODIPine BESYLATE 5 MG TAB PO SCH (08:09)
[2022-07-17] MEDS: ASPIRIN 81 MG ECTAB PO SCH (08:09)
[2022-07-17] MEDS: GABAPENTIN 300 MG CAP PO SCH ×3 (08:10→19:54)
[2022-07-17] MEDS: CHOLECALCIFEROL 1,000 UNITS 25 MCG TAB PO SCH (08:10)
[2022-07-17] MEDS: COREG 20 MG PO SCH (08:11)
[2022-07-17] MEDS: PANTOprazole 40 MG TAB PO SCH ×2 (08:12→19:54)
[2022-07-17] MEDS: ENOXAPARIN INJ 40 MG/0.4 ML SYR SQ SCH (08:12)
[2022-07-17] MEDS: predniSONE 20 MG TAB PO SCH (08:12)
[2022-07-17 08:22] LABS: Calcium 9.2 mg/dl (8.5-10.1); Est GFR (African American) 49.8 ml/min; Est GFR (Non-African American) 42.9 ml/min; Potassium 3.8 mmol/L (3.5-5.1)
[2022-07-17] MEDS: MoRPHine SULFATE 4 MG/ML 1 ML CARP\\VIAL IV PRN (10:10)
[2022-07-17] MEDS: cloNIDine HCL 0.1 MG TAB PO PRN (11:39)
--- NOTE | 2022-07-17 16:46 | Hospitalist Progress Note ---
Date of Service July 17, 2022 Assessment & Plan (1) Bilateral leg pain: (2) Fever: (3) Gout: (4) Leukocytosis: (5) Weakness: Plan: Polyarticular gout flare-POA H/O gout H/P arthritis (knees and hip), S/P intra-articular steroid injections SIRS Less likely sepsis/septic arthritis--Cultures negative S/P Left knee Joint aspiration Synovial fluid showed monosodium urate crystals --Blood Cultures: negative to date -- Left Knee Synovial fluid culture Negative --RA <14 EZIO Negative Lyme disease screen is negative ANCA and double-stranded DNA antibody pending Empiric antibiotics cefepime, vancomycin discontinued Hydralazine discontinued as patient has family history of drug-induced lupus Appreciate orthopedics input Discussed with rheumatology on 07/16/22 Continue prednisone taper course: 40 mg for 3 days, 30 mg for 3 days, 20 mg for 3 days, 10 mg for 3 days, 5 mg daily Needs follow-up with rheumatology as outpatient Consider to start on allopurinol as outpatient PT recommends Rehab Patient prefers to be discharged home with Home Health Will decrease prednisone to 30 mg daily tomorrow Adamantly refuses rehab placement (6) HTN (hypertension): Plan: Hydralazine discontinued as above Optimize pain control Continue Coreg ER 20mg daily Continue amlodipine Clonidine PRN Steroids, Pain likely contributing to elevated blood pressure BP better today (7) Hyperlipidemia: (8) Coronary artery disease: Plan: Continue ASA, plavix, Atorvastatin (9) Depression: Plan: Continue home meds Plan Code Status: Full code DVT Px: Lovenox SQ Disposition Likely discharge home tomorrow Admission and Anticipated Discharge Date Admission Date: July 14, 2022 Subjective Patient is seen and examined at bedside Feels better today Knee pain improving No new complaints Denies any chest pain, shortness of breath, dizziness, nausea, abdominal pain BP better today Not interested in rehab placement Review of Systems Review of Systems: All systems reviewed & are unremarkable except as noted in Subjective Physical Exam Physical Exam: Physical Exam: Vitals signs as noted above General Appearance:Moderately built and nourished, no apparent distress Head: normocephalic, Atraumatic Eyes: normal inspection, EOMI Neck: supple, Trachea midline Respiratory/Chest: Normal breath sounds, CTA, No accessory muscle use Cardiovascular: S1, S2, No murmur Abdomen/GI:Soft, Non tender, Bowel sounds present Extremities/Musculoskeletal:normal inspection, no edema, B/L Knee tenderness, + UR arthritic changes Neurologic/Psych:AAOX3, grossly no focal neurological deficits Skin: normal color, warm Results & Data Results & Data ([facility]) Vital Signs (Past 12 Hours) Vital Signs Temp Pulse Resp BP Pulse Ox O2 Del Method 07/17/22 15:55 36.8 C 54 L 16 164/42 H Room Air 07/17/22 12:52 174/90 H 07/17/22 11:57 36.5 C 60 18 93 Room Air 07/17/22 06:59 36.6 C 63 18 185/62 H 94 Room Air Laboratory Results Short CBC 07/17/22 Range/Units 07:31 WBC 8.96 (4.8-10.8) K/ul Hgb 8.5 L (12.0-16.0) g/dl Hct 25.9 L (34.1-44.9) % Plt Count 196 (130-400) K/uL BMP 07/17/22 07:31 Sodium 140 Potassium 3.8 Chloride 106 Carbon Dioxide 26 BUN 35 H Creatinine 1.25 H Glucose 103 H Calcium 9.2 (1) HTN (hypertension) Hypertension type: unspecified Qualified Code(s): I10 - Essential (primary) hypertension
[2022-07-17] MEDS: ATORVASTATIN 40 MG TAB PO SCH (19:53)
[2022-07-17] MEDS: traZODone HCL 100 MG TAB PO SCH (19:54)
[2022-07-17] MEDS: CITALOPRAM 40 MG TAB PO SCH (20:36)
[2022-07-18] MEDS: cloNIDine HCL 0.1 MG TAB PO PRN (03:49)
[2022-07-18 05:23] LABS: Babesia microti DNA Not Detected (Not Detected)
[2022-07-18] MEDS: ACETAMINOPHEN 500 MG TAB PO SCH ×2 (06:07→13:28)
[2022-07-18 06:57] LABS: BUN Creatinine Ratio 32.8 (10-20); Calcium 8.8 mg/dl (8.5-10.1); Creatinine Clr Calc Pharmacy 40.9 ml/min; Est GFR (Non-African American) 40.6 ml/min; Potassium 4.1 mmol/L (3.5-5.1)
[2022-07-18] MEDS: CHOLECALCIFEROL 1,000 UNITS 25 MCG TAB PO SCH (08:19)
[2022-07-18] MEDS: PANTOprazole 40 MG TAB PO SCH (08:19)
[2022-07-18] MEDS: CLOPIDOGREL BISULFATE 75 MG TAB PO SCH (08:20)
[2022-07-18] MEDS: amLODIPine BESYLATE 5 MG TAB PO SCH (08:20)
[2022-07-18] MEDS: GABAPENTIN 300 MG CAP PO SCH ×2 (08:20→13:28)
[2022-07-18] MEDS: ASPIRIN 81 MG ECTAB PO SCH (08:20)
[2022-07-18] MEDS: ENOXAPARIN INJ 40 MG/0.4 ML SYR SQ SCH (08:21)
[2022-07-18] MEDS: COREG 20 MG PO SCH (08:21)
[2022-07-18] MEDS ORDERED: predniSONE 10 MG TABLET PO SCH (09:00)
--- NOTE | 2022-07-18 13:13 | Hospitalist Progress Note ---
Date of Service July 18, 2022 Assessment & Plan (1) Bilateral leg pain: (2) Fever: (3) Gout: (4) Leukocytosis: (5) Weakness: Plan: Polyarticular gout flare-POA H/O gout H/P arthritis (knees and hip), S/P intra-articular steroid injections SIRS Less likely sepsis/septic arthritis--Cultures negative S/P Left knee Joint aspiration Synovial fluid showed monosodium urate crystals --Blood Cultures: negative to date -- Left Knee Synovial fluid culture Negative --RA <14 EZIO Negative Lyme disease screen is negative ANCA and double-stranded DNA antibody pending Empiric antibiotics cefepime, vancomycin discontinued Hydralazine discontinued as patient has family history of drug-induced lupus Appreciate orthopedics input Discussed with rheumatology on 07/16/22 Continue prednisone taper course: 40 mg for 3 days, 30 mg for 3 days, 20 mg for 3 days, 10 mg for 3 days, 5 mg daily until follow up with Rheum Consider to start on allopurinol as outpatient PT recommends Rehab Patient prefers to be discharged home with Home Health Refuses rehab placement Continue prednisone taper Advised to follow-up with rheumatology upon discharge (6) HTN (hypertension): Plan: Hydralazine discontinued as above Optimize pain control Continue Coreg ER 20mg daily Continue amlodipine Clonidine PRN Steroids, Pain likely contributing to elevated blood pressure BP better (7) Hyperlipidemia: (8) Coronary artery disease: Plan: Continue ASA, plavix, Atorvastatin (9) Depression: Plan: Continue home meds Plan Code Status: Full code DVT Px: Lovenox SQ Disposition Likely discharge home today Admission and Anticipated Discharge Date Admission Date: July 14, 2022 Subjective Patient is seen and examined at bedside Ambulating better Knee pain continues to improve No new complaints Denies any chest pain, shortness of breath, dizziness, nausea, abdominal pain BP better Plan to discharge home today Review of Systems Review of Systems: All systems reviewed & are unremarkable except as noted in Subjective Physical Exam Physical Exam: Physical Exam: Vitals signs as noted above General Appearance:Moderately built and nourished, no apparent distress Head: normocephalic, Atraumatic Eyes: normal inspection, EOMI Neck: supple, Trachea midline Respiratory/Chest: Normal breath sounds, CTA, No accessory muscle use Cardiovascular: S1, S2, No murmur Abdomen/GI:Soft, Non tender, Bowel sounds present Extremities/Musculoskeletal:normal inspection, no edema, B/L Knee tenderness, + UE arthritic changes Neurologic/Psych:AAOX3, grossly no focal neurological deficits Skin: normal color, warm Results & Data Results & Data ([facility]) Vital Signs (Past 12 Hours) Vital Signs Temp Pulse Pulse Resp BP Pulse Ox O2 Del Method 07/18/22 11:18 36.8 C 58 L 16 176/89 H Room Air 07/18/22 06:48 36.7 C 59 L 18 166/64 H 94 Room Air 07/18/22 04:59 59 L 07/18/22 03:45 36.7 C 65 17 186/64 H 96 Room Air Laboratory Results [facility] 07/18/22 06:01 Sodium 140 Potassium 4.1 Chloride 107 Carbon Dioxide 27 BUN 43 H Creatinine 1.31 H Glucose 95 Calcium 8.8 (1) HTN (hypertension) Hypertension type: unspecified Qualified Code(s): I10 - Essential (primary) hypertension
--- NOTE | 2022-07-18 13:22 | Discharge Summary ---
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 She had a recent admission for LUCAS thought secondary to ATN from IV contrast in the setting of HCTZ and olmesartan use. She was also c/o leg pain during that admission - swelling worse in one leg than other so duplex ordered to r/o DVT. Diagnosed with gout based on clinical exam and prior history and placed on prednisone which seemed to help with the pain. Discharged 6 days ago - initially felt okay at home. Two days ago pain dramatically worsened and couldn't walk. Has been in a recliner for the past two days - hasn't even been able to get up to go to the bathroom because pain was so severe. She describes pain in the joints but not really between the joints - describes sharp pain in knees, ankles, toes. Unsure when swelling started/worsened. Rates pain in RLE as 10/10 and LLE as 8/10. Also notes pain in the right wrist but less severe. Current pain is different than chronic pain from arthritis - more severe than that pain was. Has been getting injections in knees and hips for arthritis pain - initially helpful but no longer effective for knees, does seem to help hips. Wasn't aware that she had a fever at home although admits that she didn't feel great. No chills. Had vomiting/dry heaves two days ago but relates to the severity of the pain. No nausea at present, no vomiting since. No CP, SOB, dizziness, congestion, rhinorrhea. Admission Exam Per Admitting Provider Physical Exam Constitutional: + in distress (due to pain) Eyes: + anicteric sclerae Neck: trachea midline Respiratory: no respiratory distress and no labored breathing Auscultation: lungs clear to auscultation bilaterally; no rales, no rhonchi and no wheezes Cardiovascular: Rate/Rhythm: regular rate and regular rhythm Vessels: radial pulses present Extremities: + pedal edema B Gastrointestinal (Abdomen): Inspection/Auscultation: normal bowel sounds; abdomen not distended Percussion/Palpation: abdomen soft; abdomen nontender Musculoskeletal: Head/Neck/Chest: normocephalic and head atraumatic Limited active and passive ROM of knees and ankles due to significant pain - tender over knee and ankle joints Skin: no jaundice and no erythema right groin insertion site from recent vascular procedure - well-healed, no erythema or drainage noted Neurologic: moves all extremities; no focal motor deficits and not confused Psychiatric: Orientation: alert and oriented x 3 tearful affect due to pain Principal Diagnosis Polyarticular gout Hypertension Discharge Data Allergies Allergy/AdvReac Type Severity Reaction Status Date / Time oxycodone AdvReac Severe syncope, Verified 07/04/22 14:11 low bp nickel AdvReac Intermediate rash and Verified 07/04/22 14:11 skin turns green Consultations 07/14/22 15:46 ED Decision to Admit Stat 07/14/22 17:09 Consult Orthopedic Surgery Routine Procedures Performed Laboratory Results WBC 8.96 K/ul (4.8-10.8) 07/17/22 07:31 RBC 2.64 M/uL (3.93-5.22) L 07/17/22 07:31 Hgb 8.5 g/dl (12.0-16.0) L 07/17/22 07:31 Hct 25.9 % (34.1-44.9) L 07/17/22 07:31 MCV 98.1 fL (80.0-100.0) 07/17/22 07:31 MCH 32.2 pg (25.0-34.0) 07/17/22 07:31 MCHC 32.8 g/dL (32.0-36.0) 07/17/22 07:31 RDW Std Deviation 45.0 fL (36.4-46.3) 07/17/22 07:31 RDW Coeff of Geeta 12.5 % (11.5-14.5) 07/17/22 07:31 Plt Count 196 K/uL (130-400) 07/17/22 07:31 MPV 11.2 fL (9.4-12.3) 07/17/22 07:31 Immature Gran % (Auto) 0.8 % 07/14/22 12:20 Neut % (Auto) 75.2 % 07/14/22 12:20 Lymph % (Auto) 11.3 % 07/14/22 12:20 [place] % (Auto) 11.8 % 07/14/22 12:20 Eos % (Auto) 0.7 % 07/14/22 12:20 Baso % (Auto) 0.2 % 07/14/22 12:20 Neut # (Auto) 10.80 K/uL (1.4-6.5) H 07/14/22 12:20 Lymph # (Auto) 1.63 K/uL (1.2-3.4) 07/14/22 12:20 [place] # (Auto) 1.70 K/uL (0.24-0.82) H 07/14/22 12:20 Eos # (Auto) 0.10 K/uL (0-0.50) 07/14/22 12:20 Baso # (Auto) 0.03 K/uL (0-0.2) 07/14/22 12:20 Immature Gran # (Auto) 0.12 K/uL (0.00-0.02) H 07/14/22 12:20 ESR 58 mm/hr (0-30) H 07/16/22 05:34 Sodium 140 mmol/L (136-145) 07/18/22 06:01 Potassium 4.1 mmol/L (3.5-5.1) 07/18/22 06:01 Chloride 107 mmol/L (98-107) 07/18/22 06:01 Carbon Dioxide 27 mmol/L (21-32) 07/18/22 06:01 Anion Gap 6 (3-11) 07/18/22 06:01 BUN 43 mg/dl (6-23) H 07/18/22 06:01 Creatinine 1.31 mg/dl (0.6-1.2) H 07/18/22 06:01 Est Cr Clr Drug Dosing 40.9 ml/min 07/18/22 06:01 Est GFR ( Amer) 47.0 ml/min 07/18/22 06:01 Est GFR (Non-Af Amer) 40.6 ml/min 07/18/22 06:01 BUN/Creatinine Ratio 32.8 (10-20) H 07/18/22 06:01 Glucose 95 mg/dl (70-99(Fasting)) 07/18/22 06:01 Lactate 0.9 mmol/L (0.4-2.0) 07/14/22 19:42 Uric Acid 8.7 mg/dl (2.6-7.2) H 07/14/22 12:20 Calcium 8.8 mg/dl (8.5-10.1) 07/18/22 06:01 Total Bilirubin 0.8 mg/dl (0.2-1.0) 07/14/22 12:20 AST 13 U/L (13-39) 07/14/22 12:20 ALT 13 U/L (7-52) 07/14/22 12:20 Alkaline Phosphatase 71 U/L (34-104) 07/14/22 12:20 C-Reactive Protein 23.95 mg/dl (0-0.5) H 07/16/22 05:34 Total Protein 6.8 gm/dl (6.0-8.3) 07/14/22 12:20 Albumin 3.4 gm/dl (3.4-5.0) 07/14/22 12:20 Globulin 3.4 gm/dl (2.5-4.0) 07/14/22 12:20 Albumin/Globulin Ratio 1.0 (0.9-2) 07/14/22 12:20 Procalcitonin 0.36 ng/ml (0-0.5) 07/14/22 12:20 Urine Color Yellow 07/14/22 19:38 Urine Appearance Clear (Clear) 07/14/22 19:38 Urine pH 5.5 (4.5-7.5) 07/14/22 19:38 Ur Specific [place] 1.012 (1.000-1.030) 07/14/22 19:38 Urine Protein Trace (Negative) H 07/14/22 19:38 Urine Glucose (UA) Negative (Negative) 07/14/22 19:38 Urine Ketones Negative (Negative) 07/14/22 19:38 Urine Blood Trace (Negative) H 07/14/22 19:38 Urine Nitrite Negative (Negative) 07/14/22 19:38 Urine Bilirubin Negative (Negative) 07/14/22 19:38 Urine Urobilinogen Negative (Negative) 07/14/22 19:38 Ur Leukocyte Esterase Trace (Negative) H 07/14/22 19:38 Urine WBC (Auto) 1-5 /hpf (0-5) 07/14/22 19:38 Urine RBC (Auto) 0-4 /hpf (0-4) 07/14/22 19:38 U Hyaline Cast (Auto) 0 /lpf (0-5) 07/14/22 19:38 U Epithel Cells (Auto) >30 /lpf (0-5) H 07/14/22 19:38 Urine Bacteria (Auto) 1+ (Negative) H 07/14/22 19:38 Fluid Comment 07/15/22 11:40 Synovial Source Knee 07/15/22 11:40 Synovial Color Pale Yellow 07/15/22 11:40 Synovial Appearance Cloudy 07/15/22 11:40 Synovial WBC (Auto) 8031 /ul (0-200) H 07/15/22 11:40 Synovial RBC (Auto) < 2000 /uL 07/15/22 11:40 Synovial Polynuclear % 95.1 % 07/15/22 11:40 Synovial Mononuclear % 4.9 % 07/15/22 11:40 Synovial Crystals 07/15/22 11:40 Nasal Screen MRSA (PCR) Negative (Negative) 07/15/22 15:05 Rheumatoid Factor <14 IU/mL (<14) 07/14/22 12:20 EZIO Screen NEGATIVE (NEGATIVE) 07/14/22 12:20 Anaplasma Smear See Comment 07/14/22 12:20 Babesia Smear See Comment 07/14/22 12:20 Babesia microti DNA PCR Not Detected (Not Detected) 07/14/22 12:20 Lyme Disease IgG Ab Negative (Negative) 07/14/22 12:20 Lyme Disease IgM Ab Negative (Negative) 07/14/22 12:20 SARS-CoV-2, RNA, NAAT NEGATIVE (NEGATIVE) 07/14/22 19:18 Impressions Knee X-Ray 07/14/22 14:00 LEFT KNEE 3 VIEWS CLINICAL HISTORY: Atraumatic left knee pain. FINDINGS: AP, crosstable lateral, and sunrise views of the left knee are obtained. No prior studies are available for comparison at the time of dictation. The skeletal structures are osteopenic. No fracture is seen. There is advanced degenerative narrowing in the lateral and patellofemoral compartments. Mild narrowing is seen in the medial compartment. There are large lateral marginal osteophytes, degenerative beaking of the tibial spine, and patellar enthesophytes. There is a small joint effusion. Soft tissue edema is seen around the knee. There is atherosclerotic calcification of the popliteal artery. A calcified fabella is incidentally noted. IMPRESSION: 1. Soft tissue swelling and joint effusion with no acute bony abnormality identified. 2. Osteopenia and degenerative change as above. Electronically signed by: Manan Pinto M.D. 07/14/2022 2:44 PM Chest X-Ray 07/14/22 14:20 XR chest 1V portable CLINICAL HISTORY: fever COMPARISON STUDY: Chest radiograph July 05, 2022. FINDINGS: Severe osteoarthritis of the left shoulder is incidentally noted. Lung volumes are normal. Lungs are clear. There is no pneumothorax or pleural effusion. Cardiac size is normal. Mediastinal contours are normal. There is no evidence for pulmonary edema. IMPRESSION: No acute cardiopulmonary findings. ACT 112: Negative or not required by law. Electronically signed by: Torey Rouse M.D. 07/14/2022 2:36 PM Ankle X-Ray 07/16/22 08:21 LEFT ANKLE 2 VIEWS CLINICAL HISTORY: Gout. FINDINGS: AP and lateral views of the left ankle are obtained. No prior studies are available for comparison at the time of dictation. The skeletal structures are osteopenic. No fracture is seen. The ankle mortise is intact. There is no significant joint effusion. No erosive disease is seen. There is a plantar heel spur. Mild soft tissue swelling is present throughout the left lower extremity. No soft tissue calcifications are identified. IMPRESSION: Mild soft tissue swelling with no acute bony abnormality identified. Electronically signed by: Manan Pinto M.D. 07/16/2022 8:52 AM Hospital Course (1) Bilateral leg pain: (2) Fever: (3) Gout: (4) Leukocytosis: (5) Weakness: Polyarticular gout flare-POA H/O gout H/P arthritis (knees and hip), S/P intra-articular steroid injections SIRS Less likely sepsis/septic arthritis--Cultures negative S/P Left knee Joint aspiration Synovial fluid showed monosodium urate crystals --Blood Cultures: negative to date -- Left Knee Synovial fluid culture Negative --RA <14 EZIO Negative Lyme disease screen is negative ANCA and double-stranded DNA antibody pending Empiric antibiotics cefepime, vancomycin discontinued Hydralazine discontinued as patient has family history of drug-induced lupus Appreciate orthopedics input Discussed with rheumatology on 07/16/22 Continue prednisone taper course: 40 mg for 3 days, 30 mg for 3 days, 20 mg for 3 days, 10 mg for 3 days, 5 mg daily until follow up with Rheum Consider to start on allopurinol as outpatient PT recommends Rehab Patient prefers to be discharged home with Home Health Refuses rehab placement Continue prednisone taper Advised to follow-up with rheumatology upon discharge (6) HTN (hypertension): Hydralazine discontinued as above Optimize pain control Continue Coreg ER 20mg daily Continue amlodipine Clonidine PRN Steroids, Pain likely contributing to elevated blood pressure BP better (7) Hyperlipidemia: (8) Coronary artery disease: Continue ASA, plavix, Atorvastatin (9) Depression: Continue home meds Plan Code Status: Full code DVT Px: Lovenox SQ Disposition Likely discharge home today Total Time Total Time Spent Total Time Spent (In Minutes): 49 minutes Discharge Plan Discharge Items Patient Disposition: Home - Home Health Services Reason For Visit: JOINT PAIN, FEVER Discharge Diagnosis: Polyarticular gout Hypertension Activity: Per Instructions section Exercise/Sports: Gradually increase as tolerated Non-emergency contact: Primary Care Provider and Specialist Call non-emergency contact if: you have any medication questions, your symptoms worsen, your pain is concerning for you and you have a fever Follow-up/Referrals: Karl Howe, [Primary Care Provider] - Diet: Heart Healthy Addtl Attending Provider Instructions: Follow-up with your primary care physician Dr. Howe in 1 week Follow-up with your ux interaction designer as scheduled -- Complete the prednisone course as prescribed Start taking prednisone 30 mg daily for 2 more days, then take 20 mg daily for 3 days, then take 10 mg daily for 3 days then take 5 mg daily until follow-up with your ux interaction designer. -- Discuss with the physician for further adjustment of blood pressure medications as needed. Monitor your blood pressure regularly. Seek immediate medical attention if your symptoms reoccur or worsen Please take all medications as instructed on discharge list below. Please call if you have any questions or problems. You can reach a [facility] hospitalist on duty at [facility] 24 hours a day by calling [phone] Pending Studies at Discharge: Yes Studies:: Blood culture, ANCA, Double strand DNA Stand-Alone Forms: My [facility] [employer], Smoking Cessation Medications and DC Order Prescriptions: New prednisone 10 mg tablet 10 mg PO UD Qty: 15 0RF Rx Instructions: Start taking prednisone 30 mg daily for 2 more days, then take 20 mg daily for 3 days, then take 10 mg daily for 3 days then take 5 mg daily prednisone 5 mg tablet 5 mg PO DIRECTED Qty: 15 0RF Rx Instructions: Start taking prednisone 30 mg daily for 2 more days, then take 20 mg daily for 3 days, then take 10 mg daily for 3 days then take 5 mg daily Continued trazodone 100 mg Tablet 100 mg PO HS Qty: 0 citalopram 40 mg Tablet 40 mg PO HS Qty: 0 aspirin 81 mg Tablet,Delayed Release (Dr/Ec) 81 mg PO QAM Qty: 0 hydrocodone-acetaminophen 7.5-325 mg tablet 1 tab PO TID PRN (Reason: Pain) cyclobenzaprine 10 mg tablet 10 mg PO BID PRN (Reason: Muscle spasms) carvedilol phosphate 20 mg capsule, ER multiphase 24 hr 20 mg PO DAILY Rx Instructions: must administer with a meal/food atorvastatin [Lipitor] 40 mg Tablet 40 mg PO PM omeprazole magnesium [Prilosec OTC] 20 mg Tablet,Delayed Release (Dr/Ec) 40 mg PO BID clopidogrel [Plavix] 75 mg tablet 75 mg PO DAILY Qty: 30 6RF gabapentin 300 mg capsule 300 mg PO TID amlodipine 5 mg Tablet 10 mg PO QAM 30 Days Qty: 60 1RF ergocalciferol (vitamin D2) 50 mcg (2,000 unit) capsule 50 mcg PO DAILY 30 Days Qty: 30 1RF Discontinued hydralazine 50 mg Tablet 50 mg PO BID 30 Days Qty: 60 1RF Discharge Orders: Discharge Order (Routine); Ordered 07/18/22 Ordered By: James King Admission Data Admit Date/Time: 07/14/22 17:26 Attending Provider: James King Admit Provider: Bere Alonzo I. Primary Care Provider: Karl Howe Other Providers: Bere Alonzo I. ; Rudi Turner ; Viaziz Scam
[2022-07-20 00:22] LABS: ANCA Screen Negative (Negative); Anti-dsDNA Recombinant <1 IU/mL
== END 2022-07-18 13:57 | disposition home health service (06) | DRG 554 ==
LOC: ED 11:53 → SUATTDRO 17:26 → 2E 17:26

== ENCOUNTER 2023-09-22 13:58 | Inpatient (IN) ==
--- NOTE | 2023-09-22 14:07 | ED Triage Note ---
Date of Service September 22, 2023 Provider in Triage Author: Angel Tineo History of Present Illness This patient was briefly evaluated while in triage. An abbreviated physical exam was performed. This patient is a 72-year-old Female who presents to the ED for evaluation of L hip pain. Left hip pain, noted abnormal MRI of L hip on noting avascular necrosis and subacute fx. 08/10/23 injury, then L hip brusiing. Physical Exam GENERAL: 72 year old female. In no acute distress. SKIN: No lesions or rashes. HEART: Regular rate and rhythm. LUNGS: Clear to auscultation. NEURO: Alert and oriented. No deficits. MUSCULOSKELETAL: No deformities to inspection of the extremities. PSYCH: Patient is pleasant and answers all questions appropriately. Initial orders for labs and / or imaging were placed and patient was placed in the waiting area until a bed is available. Please see further documentation for the full ED course.
[2023-09-22 14:44] LABS: Basophils # (auto) 0.06 K/uL (0.00-0.20); Basophils % (auto) 0.7 %; Eosinophils # (auto) 0.18 K/uL (0.00-0.50); Eosinophils % (auto) 2.1 %; Hematocrit (blood only) 34.2 % (37.0-47.0); Hemoglobin 11.2 g/dl (12.0-16.0); Immature Granulocytes # (auto) 0.07 K/uL (0.01-0.20); Immature Granulocytes % (auto) 0.8 %; Lymphocytes # (auto) 2.15 K/uL (1.20-3.40); Lymphocytes % (auto) 24.9 %; Mean Corpuscular Hemoglobin 33.2 pg (25.0-34.0); Mean Corpuscular Hgb Conc 32.7 g/dL (32.0-36.0); Mean Corpuscular Volume 101.5 fL (80.0-100.0); Mean Platelet Volume 10.8 fL (9.4-12.4); Monocytes # (auto) 0.81 K/uL (0.11-0.59); Monocytes % (auto) 9.4 %; Neutrophils # (auto) 5.37 K/uL (1.40-6.50); Neutrophils % (auto) 62.1 %; Platelet Count 272 K/uL (130-400); RDW Coefficient of Variation 14.1 % (11.5-14.5); RDW Standard Deviation 51.8 fL (36.4-46.3); Red Blood Count 3.37 M/uL (4.20-5.40); White Blood Count 8.64 K/ul (4.8-10.8)
[2023-09-22 15:00] LABS: Alanine Aminotransferase 11 U/L (7-52); Albumin Globulin Ratio 1.4 (0.9-2); Albumin Level 4.2 gm/dl (3.4-5.0); Alkaline Phosphatase 104 U/L (34-104); Anion Gap 9 (3-11); Aspartate Aminotransferase 14 U/L (13-39); BUN Creatinine Ratio 19.7 (10-20); Bilirubin,Total 0.5 mg/dl (0.2-1.0); Blood Urea Nitrogen 28 mg/dl (6-23); Calcium 10.3 mg/dl (8.6-10.3); Carbon Dioxide 26 mmol/L (21-32); Chloride 103 mmol/L (98-107); Est GFR (African American) 42.4 ml/min; Est GFR (Non-African American) 36.5 ml/min; Globulin 3.1 gm/dl (2.5-4.0); Glucose 105 mg/dl (70-99(Fasting)); Potassium 4.1 mmol/L (3.5-5.1); Sodium 138 mmol/L (136-145); Total Protein 7.3 gm/dl (6.0-8.3)
[2023-09-22 15:19] LABS: Partial Thromboplastin Time 29 Seconds (21-31); Prothrombin Time 10.9 Seconds (9.0-12.0)
[2023-09-22] MEDS: HYDROmorphone INJ 0.5 MG/0.5 ML SYR IV STA ×2 (16:34→18:53)
--- NOTE | 2023-09-22 16:36 | Emergency Department Note ---
History of Present Illness General Chief complaint: Referred by Doctor Stated complaint: CRACKED HIP Time Seen by Provider: 09/22/23 16:10 History of Present Illness Maximum Pain Intensity: 9 This is a 72-year-old female that presents to the emergency department via private vehicle referred by tobacco prizer with complaints of "left hip injury, elevated blood pressure". Patient here with her sister. Patient notes that on day of this past year she bent down and twisted and felt a pop in her left hip. Since that time she notes progressive left hip pain. It is worse with ambulation and movement. Mildly better with rest. With walking the pain is a 9/10. Patient states that she has been evaluated for this and had x-rays as well as MRI/CT scan. She does provide the radiology reports for these images. Per report of the MRI of the left hip without contrast as well as CT scan of the pelvis without contrast as read on 09/17/2023 there is left hip avascular necrosis with a likely subacute left tiny femoral head fracture and some subchondral collapse/loss of normal severity. Multifocal muscular and mixed age tendon injuries. The patient has not had a follow-up with orthopedics as of yet for these findings. She does note that she has seen orthopedics before and had an injection in the hip. The patient does state today she saw her tobacco prizer and secondary to her elevated blood pressure reading and left hip injury/findings was referred here for further evaluation and management. Patient does live alone. She notes pain with ambulation and movements throughout the house as well. She is currently on hydrocodone for pain control and has been on this for some time now. Home Medications Medication Instructions Recorded Confirmed Type trazodone 100 mg tablet 100 mg PO HS Sleep ##0 09/22/11 09/22/23 History citalopram 40 mg tablet 40 mg PO QAM ##0 03/30/18 09/22/23 History carvedilol phosphate 20 mg 20 mg PO QAM 07/03/22 09/22/23 History capsule,[id number] multiphase multivitamin 1 tab PO QAM 08/19/22 09/22/23 History allopurinol 300 mg tablet 300 mg PO QAM 09/23/22 09/22/23 History amlodipine 10 mg tablet 10 mg PO QAM 09/22/23 09/22/23 History duloxetine 30 mg capsule,delayed 30 mg PO HS 09/22/23 09/22/23 History release gabapentin 400 mg capsule 400 mg PO TID 09/22/23 09/22/23 History hydrocodone 5 mg-acetaminophen 325 1 tab PO Q8 PRN Severe Pain (Scale 09/22/23 09/22/23 History mg tablet Score 7-10) olmesartan 5 mg tablet 5 mg PO QAM 09/22/23 09/22/23 History omeprazole 40 mg capsule,delayed 40 mg PO BID 09/22/23 09/22/23 History release spironolactone 25 mg tablet 25 mg PO QAM 09/22/23 09/22/23 History ticagrelor 90 mg tablet (Brilinta) 90 mg PO AMHS 09/22/23 09/22/23 History tizanidine 2 mg tablet 2 mg PO HS PRN Muscle Spasm 09/22/23 09/22/23 History Allergies Allergy/AdvReac Type Severity Reaction Status Date / Time oxycodone AdvReac Severe syncope, Verified 09/22/23 13:11 low bp nickel AdvReac Intermediate rash and Verified 09/22/23 13:11 skin turns green Past Med/Surg History Medical History (Updated 09/22/23 @ 23:28 by Angel Tineo PA-C) Neck pain Carotid artery stenosis Diverticular disease Mesenteric artery stenosis Gout HTN (hypertension) Chronic back pain Hypertension Hyperlipidemia Surgical History History of CEA (carotid endarterectomy) History of arthroplasty of right knee History of back surgery History of carpal tunnel surgery right H/O left cataract extraction 04/29/18-2mg IV versed given without issues History of bilateral tubal ligation History of arthroscopy chencho knee History of colonoscopy w/ polypectomy History of endoscopic sinus surgery Family History Mother Family history of early CAD Social History Smoking Status: Never smoker Second Hand Exposure: No; Do You Dip or Chew Tobacco: No; Hx Alcohol Use: No Hx Substance Use: No Preferred Language: Afghan Communication Ability: Effective Visual Impairment: No Limitations Children'S Minister Required: No Beliefs That Will Affect Care: None marital status: Single Current Living Situation: Alone Feels Safe at Home: Yes Assistive Devices: None Review of Systems A total of 10 systems reviewed and were otherwise negative Physical Exam Vital Signs Vital Signs - 24 hr 09/22/23 14:02 09/22/23 16:14 09/22/23 16:36 Temperature 36.8 C Temperature Source Temporal Artery Scan Pulse Rate 84 91 H Pulse Rate [Finger] Respiratory Rate 18 20 Respiratory Effort / Characteristics Non-Labored Spontaneous Respiratory Depth Normal Blood Pressure 184/74 H Blood Pressure [Right Arm] 211/79 H Blood Pressure Mean 110 Blood Pressure Mean [Right Arm] 123 Blood Pressure Position Sitting Blood Pressure Position [Right Arm] Semi-fowlers Pulse Oximetry 97 99 Oxygen Delivery Method Room Air Room Air Sepsis Recent Fever Within 48 Hours No Sepsis New/Unexplained Change in Mental Status No Sepsis Action Taken by Nursing No Action Required 09/22/23 16:36 Temperature Temperature Source Pulse Rate Pulse Rate [Finger] 91 H Respiratory Rate 20 Respiratory Effort / Characteristics Respiratory Depth Blood Pressure Blood Pressure [Right Arm] 198/80 H Blood Pressure Mean Blood Pressure Mean [Right Arm] 119 Blood Pressure Position Blood Pressure Position [Right Arm] Lying Pulse Oximetry 99 Oxygen Delivery Method Sepsis Recent Fever Within 48 Hours Sepsis New/Unexplained Change in Mental Status Sepsis Action Taken by Nursing VITAL SIGNS - Vital signs and nursing notes were reviewed. Hypertensive, otherwise stable and afebrile. GENERAL - 72-year-old female appearing her stated age who is in no acute distress. Communicates well with provider and answers questions appropriately. SKIN - Without rashes. No meningeal or petechial rash. HEAD - NC/AT. EYES - PERRL with EOMI bilaterally. Sclera anicteric. EARS - No deformities of external structures noted on gross examination bilaterally. NOSE - Midline and without cyanosis. No epistaxis or purulent drainage noted. MOUTH/OROPHARYNX - Without perioral cyanosis. NECK - Neck with FROM. No nuchal rigidity. LUNGS - CTA CARDIAC - RRR EXTREMITIES - No clubbing or peripheral cyanosis. Left lateral hip tenderness to palpation. +5/5 strength noted in UE/LE bilaterally. NEUROLOGIC - Cranial nerves II through XII grossly intact. Sensory intact to light touch throughout. PSYCH - A&Ox3 and cooperates fully with examiner. Pt is very pleasant and interacts well with examiner. Course Administered Medications Duloxetine HCl (Duloxetine Hcl 30 Mg Cap) 30 mg PO JUDITH Stop: 10/22/23 20:59 Last Admin: 09/22/23 22:02 Dose: 30 mg Documented By: AB Gabapentin (Gabapentin 400 Mg Cap) 400 mg PO TID JUDITH Stop: 10/22/23 20:59 Last Admin: 09/22/23 22:02 Dose: 400 mg Documented By: AB Pantoprazole Sodium (Pantoprazole 40 Mg Tab) 40 mg PO BID JUDITH Stop: 10/22/23 20:59 Last Admin: 09/22/23 22:02 Dose: 40 mg Documented By: AB Senna/Docusate Sodium (Docusate Sodium/Senna 50/8.6mg Tab) 2 tab PO [facility] Stop: 10/22/23 20:59 Last Admin: 09/22/23 22:03 Dose: Not Given Documented By: Trazodone HCl (Trazodone Hcl 100 Mg Tab) 100 mg PO [facility] Stop: 10/22/23 20:59 Last Admin: 09/22/23 22:03 Dose: 100 mg Documented By: Discontinued Medications Hydromorphone HCl (Hydromorphone Inj 0.5 Mg/0.5 Ml Syr) 0.25 mg IV NOW STA Stop: 09/22/23 16:26 Last Admin: 09/22/23 16:34 Dose: 0.25 mg Documented By: Hydromorphone HCl (Hydromorphone Inj 0.5 Mg/0.5 Ml Syr) 0.25 mg IV NOW STA Stop: 09/22/23 17:55 Last Admin: 09/22/23 18:53 Dose: 0.25 mg Documented By: Labetalol HCl (Labetalol Hcl Iv 5 Mg/Ml 20ml) 5 mg IV NOW STA Stop: 09/22/23 18:57 Last Admin: 09/22/23 19:40 Dose: 5 mg Documented By: Co-signed By: ALEJANDRA Labetalol HCl (Labetalol Hcl Iv 5 Mg/Ml 20ml) 10 mg IV NOW STA Stop: 09/22/23 21:00 Last Admin: 09/22/23 21:08 Dose: 10 mg Documented By: Co-signed By: ROLY Medical Decision Making Laboratory Data 09/22/23 14:18 09/22/23 14:18 Lab Results 09/22/23 Range/Units 14:18 WBC 8.64 (4.8-10.8) K/ul RBC 3.37 L (4.20-5.40) M/uL Hgb 11.2 L (12.0-16.0) g/dl Hct 34.2 L (37.0-47.0) % MCV 101.5 H (80.0-100.0) fL MCH 33.2 (25.0-34.0) pg MCHC 32.7 (32.0-36.0) g/dL RDW Std Deviation 51.8 H (36.4-46.3) fL RDW Coeff of Geeta 14.1 (11.5-14.5) % Plt Count 272 (130-400) K/uL MPV 10.8 (9.4-12.4) fL Immature Gran % (Auto) 0.8 % Neut % (Auto) 62.1 % Lymph % (Auto) 24.9 % Glades % (Auto) 9.4 % Eos % (Auto) 2.1 % Baso % (Auto) 0.7 % Neut # (Auto) 5.37 (1.40-6.50) K/uL Lymph # (Auto) 2.15 (1.20-3.40) K/uL Glades # (Auto) 0.81 H (0.11-0.59) K/uL Eos # (Auto) 0.18 (0.00-0.50) K/uL Baso # (Auto) 0.06 (0.00-0.20) K/uL Immature Gran # (Auto) 0.07 (0.01-0.20) K/uL PT 10.9 (9.0-12.0) Seconds INR 1.0 (0.9-1.1) APTT 29 (21-31) Seconds PTT Ratio 1.0 Sodium 138 (136-145) mmol/L Potassium 4.1 (3.5-5.1) mmol/L Chloride 103 (98-107) mmol/L Carbon Dioxide 26 (21-32) mmol/L Anion Gap 9 (3-11) BUN 28 H (6-23) mg/dl Creatinine 1.42 H (0.6-1.2) mg/dl Est Cr Clr Drug Dosing Not Reportable Est GFR ( Amer) 42.4 ml/min Est GFR (Non-Af Amer) 36.5 ml/min BUN/Creatinine Ratio 19.7 (10-20) Glucose 105 H (70-99(Fasting)) mg/dl Calcium 10.3 (8.6-10.3) mg/dl Total Bilirubin 0.5 (0.2-1.0) mg/dl AST 14 (13-39) U/L ALT 11 (7-52) U/L Alkaline Phosphatase 104 (34-104) U/L Total Protein 7.3 (6.0-8.3) gm/dl Albumin 4.2 (3.4-5.0) gm/dl Globulin 3.1 (2.5-4.0) gm/dl Albumin/Globulin Ratio 1.4 (0.9-2) Imaging Data Radiologist's Impression: Hip/Pelvis X-Ray 09/22/23 16:20 XR hip LT 2V w pelvis CLINICAL HISTORY: L hip pain COMPARISON STUDY: Abdomen and pelvis CT 07/04/2022. FINDINGS: Subchondral sclerosis within the superior aspect of the left femoral head with mild articular collapse. This is new compared to the prior study and is consistent with avascular necrosis. Otherwise, no acute fracture or dislocation within the pelvis or hips. Moderate degenerative changes within the sacroiliac joints. Lumbar spinal fusion hardware is noted. 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 IMPRESSION: Subchondral sclerosis within the superior aspect of the left femoral head with mild articular collapse. This is new compared to the prior study and is consistent with avascular necrosis. ACT 112: Negative or not required by law. Electronically signed by: Daniel Lopez M.D. 09/22/2023 4:53 PM [facility] Narrative Patient was seen and evaluated as above in room B11. Review was performed of triage nursing notes and vital signs. After obtaining a thorough history and physical examination the above work up was performed. Patient presents to us today for evaluation of ongoing left hip pain since this past [place] which was 08/10/2023. It has been progressively worsening. She is on hydrocodone at home and notes continued pain despite this medication. She lives alone. Options of care were discussed with the patient. IV access was established. Labs were drawn. Patient was initially seen in triage noting period of high volume and acuity in the emergency department. Labs reveal no leukocytosis. Minor anemia noted with hemoglobin of 11.2. Coags are normal. Creatinine 1.42. No evidence of liver failure. Urinalysis reveals what is likely a contaminated sample. Culture pending. I did review the patient's imaging reports from the [facility] including the CT, MRI and x-ray of the involved hip region. X- ray was also obtained here today revealing subchondral sclerosis within the superior aspect of the left femoral head with mild articular collapse. This is new compared to the prior study and is consistent with avascular necrosis. This does fit with the patient's presentation. Patient's blood pressure elevated here today likely secondary to her pain. IV analgesia was ordered. In discussing options, at this time we will proceed with inpatient management noting the patient's progressive left hip pain despite outpatient oral analgesia. Furthermore, the patient's blood pressure is felt to be secondary to her pain. I did speak with the on-call orthopedist regarding the patient case. This was Dr. Teran at 5:18 PM on 09/22/2023. Patient amenable to plan. Please refer to further documentation regarding her stay. In the evaluation and treatment of this patient the following differential diagnoses were entertained: Fracture, dislocation, subluxation, contusion, sprain, strain, DVT, lumbar radiculopathy, among others Impression & Plan Avascular necrosis of bone of left hip, Acute pain of left hip, Anemia Discharge Plan Visit Data Chief Complaint: Referred by Doctor Stated Complaint: CRACKED HIP ED Provider: Luis Angel Hernández ED Midlevel Provider: Angel Tineo Discharge Problem: Avascular necrosis of bone of left hip, Acute pain of left hip, Anemia Patient Disposition: Admitted As Inpatient Condition: Good Discharge Instructions Interventions: ED Discharge Assessment Last Done: 09/22/23 19:50
--- NOTE | 2023-09-22 16:55 | XRay Report ---
XR hip LT 2V w pelvis CLINICAL HISTORY: L hip pain COMPARISON STUDY: Abdomen and pelvis CT 07/04/2022. FINDINGS: Subchondral sclerosis within the superior aspect of the left femoral head with mild articul ar collapse. This is new compared to the prior study and is consistent with avascular necrosis. Other bui, no acute fracture or dislocation within the pelvis or hips. Moderate degenerative changes withi n the sacroiliac joints. Lumbar spinal fusion hardware is noted. 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 IMPRESSION: Subchondral sclerosis within the superior aspect of the left femoral head with mild ravindra cular collapse. This is new compared to the prior study and is consistent with avascular necrosis. ACT 112: Negative or not required by law. Electronically signed by: Daniel Lopez M.D. 09/22/2023 4:53 PM
--- NOTE | 2023-09-22 17:54 | History & Physical Report ---
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 MR L hip:1. Left hip avascular necrosis with a likely subacute left tiny femoral head fracture and some subchondral collapse/loss of the normal sphericity. 2. Multifocal muscular and mixed age tendon injuries, as above. Small left hip effusion. Edema throughout the subcutaneous tissues as well as within the muscles. There are multifocal partial-thickness tendon tears involving the indirect head/origin of rectus femoris, gluteus medius and minimus, obturators internus, and vastus lateralis. This is likely related to acute on chronic trauma as there is some fatty atrophy. L hip pain L hip avascular necrosis Closed fx of L femur head Multifocal muscular and mixed age tendon injuries admit to med/tele 2/2 blood pressure management consult orthopedics - pt previously has seen WILLIAN, LUIS ALBERTO, [facility] will consult Dr. Teran who is bond analyst obtain CXR, ECG for pre op clearance - pt admits to being able to ambulate 1 flight of steps w/o CP, SOB prior to injury pt on brilinta - will hold a.m. dose until seen by ortho to determine plan NPO after midnight - will place on LR @ 00:00 x 1 L Pollock -mild to mod pain; IV dilaudid severe pain bowel regimen ordered check vit D level in a.m. MRI done at [facility] - will need to have images pushed into [facility] HTN uncontrolled follows JOE Nephro likely elevated 2/2 pain currently continue coreg, amlodipine, olmesartan, aldactone give labetolol 5mg IV x 1 now PVD hx of EDIE s/p R CEA, SMA stenosis s/p stenting previously on ASA/Plavix switched to brilinta 2/2 subtherapuetic ASA/Plavix levels per neurology Hx of CVA/TIA not on statin therapy on Brilinta, but will hold for possible procedure CKD Stage IV Atrophic R kidney follows Dr. Clark baseline cr 1.4-1.7 chronic, stable Anemia hgb stable at 11.2/34.2 likely chronic renal disease DVT ppx: none due to possible upcoming procedure, recommend resuming brilinta at discretion of orthopedics, consider chemical prophylaxis after Ortho evaluation Dispo: admit to med/tele FULL CODE PCP: Karl Howe Pt was seen and examined in collaboration with Dr. Manrique, please see addendum A total of 76 minutes was spent coordinating, documenting, and providing care for this patient excluding time spent in the performance of separately billed services. This included personally viewing all current laboratories and imaging studies, medication reconciliation, outpatient chart review, and discussion with specialists. History of Present Illness Chief Complaint: L hip pain x several weeks. Primary Care Provider: Karl Howe DO This is a 72-year-old female who has a significant past medical history of HTN, HLD, PVD with history of carotid stenosis status post right CEA, superior mese nteric artery stenosis status post stenting, history of CVA, CKD stage IV, anemia, depression, gout who presents to ED secondary to left hip pain. She has been having worsening pain for last 2-3 weeks. she was twisting, tramped on an object, felt a pop to L hip region and developed bruising. She did not fall or have any nam trauma. Since this she has been having persistent decline and last 2 weeks so painful she required a cane. Pain has been progressively worse to the point she cannot lay down. She has had a dexa scan many years ago, but was never told she had osteopenic or osteoporosis. She has been intermittently on oral prednisone for pulmonary issue. She had been following with [facility] and she was receiving steroid shots to L hip w no relief. She had an outpatient L hip MRI which is showing tiny Left femoral head fracture and avascular necrosis. SHe was being seen by nephrology today and due to uncontrolled BP and severe L hip pain she was referred to ED. A few days ago she had an elevated temp of 100F. She took some tylenol which resolved the fever. Otherwise she denies chills, sweats, chest pain, sob, URI sx, n/v/d, abd pain. She has been moving her bowels regularly for her. She also denies dysuria, increased urg/freq with urination. Sister is at bedside who helps elicit history. Allergies Allergy/AdvReac Type Severity Reaction Status Date / Time oxycodone AdvReac Severe syncope, Verified 09/22/23 13:11 low bp nickel AdvReac Intermediate rash and Verified 09/22/23 13:11 skin turns green Home Medications Medication Instructions Recorded Confirmed Type trazodone 100 mg tablet 100 mg PO HS Sleep ##0 09/22/11 09/22/23 History citalopram 40 mg tablet 40 mg PO QAM ##0 03/30/18 09/22/23 History carvedilol phosphate 20 mg 20 mg PO QAM 07/03/22 09/22/23 History capsule,[id number] multiphase multivitamin 1 tab PO QAM 08/19/22 09/22/23 History allopurinol 300 mg tablet 300 mg PO QAM 09/23/22 09/22/23 History amlodipine 10 mg tablet 10 mg PO QAM 09/22/23 09/22/23 History duloxetine 30 mg capsule,delayed 30 mg PO HS 09/22/23 09/22/23 History release gabapentin 400 mg capsule 400 mg PO TID 09/22/23 09/22/23 History hydrocodone 5 mg-acetaminophen 325 1 tab PO Q8 PRN Severe Pain (Scale 09/22/23 09/22/23 History mg tablet Score 7-10) olmesartan 5 mg tablet 5 mg PO QAM 09/22/23 09/22/23 History omeprazole 40 mg capsule,delayed 40 mg PO BID 09/22/23 09/22/23 History release spironolactone 25 mg tablet 25 mg PO QAM 09/22/23 09/22/23 History ticagrelor 90 mg tablet (Brilinta) 90 mg PO AMHS 09/22/23 09/22/23 History tizanidine 2 mg tablet 2 mg PO HS PRN Muscle Spasm 09/22/23 09/22/23 History Past Med/Surg History Medical History (Updated 09/22/23 @ 18:43 by Mónica Hubbard PA-C) Neck pain Carotid artery stenosis Diverticular disease Mesenteric artery stenosis Gout HTN (hypertension) Chronic back pain Hypertension Hyperlipidemia Surgical History History of CEA (carotid endarterectomy) History of arthroplasty of right knee History of back surgery History of carpal tunnel surgery right H/O left cataract extraction 04/29/18-2mg IV versed given without issues History of bilateral tubal ligation History of arthroscopy chencho knee History of colonoscopy w/ polypectomy History of endoscopic sinus surgery Family History Mother Family history of early CAD Social History Smoking Status: Never smoker Second Hand Exposure: No; Do You Dip or Chew Tobacco: No; Hx Alcohol Use: No Hx Substance Use: No Preferred Language: Kazakh Communication Ability: Effective Visual Impairment: No Limitations Luggage Liner Required: No Beliefs That Will Affect Care: None marital status: Single Current Living Situation: Alone Feels Safe at Home: Yes Assistive Devices: None Review of Systems Review of Systems: All systems reviewed & are unremarkable except as noted in HPI & below Physical Exam Physical Exam: please refer to Dr. Manrique addendum for physical exam findings. Results & Data Results & Data Vital Signs (Past 12 Hours) Vital Signs Temp Pulse Pulse Resp BP BP Pulse Ox 09/22/23 16:36 91 H 20 198/80 H 99 09/22/23 16:36 91 H 20 99 09/22/23 16:14 211/79 H 09/22/23 14:02 36.8 C 84 18 184/74 H 97 O2 Del Method 09/22/23 16:36 09/22/23 16:36 Room Air 09/22/23 16:14 09/22/23 14:02 Room Air Diagnostic Findings Hip/Pelvis X-Ray 09/22/23 16:20 XR hip LT 2V w pelvis CLINICAL HISTORY: L hip pain COMPARISON STUDY: Abdomen and pelvis CT 07/04/2022. FINDINGS: Subchondral sclerosis within the superior aspect of the left femoral head with mild articular collapse. This is new compared to the prior study and is consistent with avascular necrosis. Otherwise, no acute fracture or dislocation within the pelvis or hips. Moderate degenerative changes within the sacroiliac joints. Lumbar spinal fusion hardware is noted. 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 IMPRESSION: Subchondral sclerosis within the superior aspect of the left femoral head with mild articular collapse. This is new compared to the prior study and is consistent with avascular necrosis. ACT 112: Negative or not required by law. Electronically signed by: Daniel Lopez M.D. 09/22/2023 4:53 PM Medications Administered Medication List Discontinued Medications Hydromorphone HCl (Hydromorphone Inj 0.5 Mg/0.5 Ml Syr) 0.25 mg IV NOW STA Stop: 09/22/23 16:26 Last Admin: 09/22/23 16:34 Dose: 0.25 mg Documented By: COVID-19 Results Results COVID-19 Adm Lab Results: RBC 3.37 M/uL (4.20-5.40) L 09/22/23 WBC 8.64 K/ul (4.8-10.8) 09/22/23 Hgb 11.2 g/dl (12.0-16.0) L 09/22/23 Hct 34.2 % (37.0-47.0) L 09/22/23 Plt Count 272 K/uL (130-400) 09/22/23 Neutrophils (%) (Auto) 62.1 % 09/22/23 Lymphocytes (%) (Auto) 24.9 % 09/22/23 Monocytes # (Auto) 0.81 K/uL (0.11-0.59) H 09/22/23 Eosinophils # (Auto) 0.18 K/uL (0.00-0.50) 09/22/23 Immature Granulocyte % (Auto) 0.8 % 09/22/23 Neutrophils # (Auto) 5.37 K/uL (1.40-6.50) 09/22/23 Lymphocytes # (Auto) 2.15 K/uL (1.20-3.40) 09/22/23 Monocytes # (Auto) 0.81 K/uL (0.11-0.59) H 09/22/23 Eosinophils # (Auto) 0.18 K/uL (0.00-0.50) 09/22/23 Basophils # (Auto) 0.06 K/uL (0.00-0.20) 09/22/23 Immature Granulocyte # (Auto) 0.07 K/uL (0.01-0.20) 4 Na 138 mmol/L (136-145) 09/22/23 K 4.1 mmol/L (3.5-5.1) 09/22/23 Cl 103 mmol/L (98-107) 09/22/23 CO2 26 mmol/L (21-32) 09/22/23 Anion Gap 9 (3-11) 09/22/23 BUN 28 mg/dl (6-23) H 09/22/23 Creatinine 1.42 mg/dl (0.6-1.2) H 09/22/23 BUN/Creatinine Ratio 19.7 (10-20) 09/22/23 Glucose Level 105 mg/dl (70-99(Fasting)) H 09/22/23 Ca 10.3 mg/dl (8.6-10.3) 09/22/23 Total Bilirubin 0.5 mg/dl (0.2-1.0) 09/22/23 AST/SGOT 14 U/L (13-39) 09/22/23 ALT/SGPT 11 U/L (7-52) 09/22/23 Alkaline Phosphatase 104 U/L (34-104) 09/22/23 Total Protein 7.3 gm/dl (6.0-8.3) 09/22/23 Albumin 4.2 gm/dl (3.4-5.0) 09/22/23 Globulin 3.1 gm/dl (2.5-4.0) 09/22/23 Albumin/Globulin Ratio 1.4 (0.9-2) 09/22/23 PTT 29 Seconds (21-31) 09/22/23 INR 1.0 (0.9-1.1) 09/22/23 Chest X-Ray 09/22/23 Code Status & VTE Plan Code Status FULL CODE VTE Prophylaxis Plan VTE Prophylaxis will be ordered: Yes Supervising Physician Co-Signing Physician Notes I have seen and discussed the case with the collaborating JESSICA. I agree with the above H&P. I have reviewed and confirmed the patients medical history, the findings on physical examination, and the patients diagnosis and treatment plan with Haydee LOPEZ and agree with the information documented. GENERAL APPEARANCE: AxOx4, mild distress HEENT: NC, AT. MMM. EOMI, clear conjunctiva, oropharynx clear. NECK: Supple without lymphadenopathy. No stiffness or restricted ROM. HEART: Normal rate and regular rhythm, normal S1/S1, no m/r/g LUNGS: CTAB, moving air well. No crackles or wheezes are heard. EXTREMITIES: left lower extremity with extremely limited ROM 2/2 Pain, held in mild flexion, sensation intact pulses intact NEUROLOGICAL: Grossly nonfocal. Alert and oriented, moving all 4 extremities. CN not formally tested but appear grossly intact. Skin: Warm and dry without any rash. #Acute on chronic left hip pain likely 2/2 Avascular necrosis and multiple tendinous injuries Ortho consult Pain management as above Discussed Brilinta with Dr. Pina--can hold if impending procedure, last dose 02/06 am rest of plan as above I have reviewed the advanced practitioner's documentation, and I agree with, and take responsibility for the plan of care (4) HTN (hypertension) Hypertension type: unspecified Qualified Code(s): I10 - Essential (primary) hypertension
--- NOTE | 2023-09-22 19:11 | XRay Report ---
XR chest 1V portable HISTORY: Preoperative evaluation. COMPARISON: Chest 07/14/2022. FINDINGS: No pneumothorax. No pleural effusions. The cardiac silhouette remains top normal in size. N o focal lung consolidations to suggest a pneumonia. No evidence for pulmonary edema. There are calcif ications within the aortic knob. Small left basilar linear density favors subsegmental atelectasis or scarring. No acute fractures identified. There is an old, healed right humeral neck fracture. Advanc ed degenerative changes again noted within the left shoulder. IMPRESSION: No significant change compared to the prior study. No acute process. ACT 112: Negative or not required by law. Electronically signed by: Daniel Lopez M.D. 09/22/2023 7:10 PM
[2023-09-22 19:24] LABS: Appearance Urine Clear (Clear); Bacteria Urine Automated Negative (Negative); Bilirubin Urine Negative (Negative); Blood Urine 1+ (Negative); Cast Urine Automated 0 /lpf (0-5); Color Urine Yellow; Epithelial Cell Urine Auto >30 /lpf (0-5); Glucose Urine UA Negative (Negative); Ketones Urine Negative (Negative); Leukocyte Esterase Urine Trace (Negative); Nitrite Urine Negative (Negative); Protein Urine Negative (Negative); Specific Gravity Urine 1.014 (1.000-1.030); Urobilinogen Urine Negative (Negative)
[2023-09-22] MEDS: LABETALOL HCL IV 5 MG/ML 20ML IV STA ×2 (19:40→21:08)
[2023-09-22] MEDS ORDERED: POLYETHYLENE (MIRALAX) 17 GM PACK PO PRN (19:50)
[2023-09-22] MEDS ORDERED: ONDANSETRON INJ 2 MG/ML 2 ML VIAL IV PRN (19:50)
[2023-09-22] MEDS ORDERED: bisacodyL 10 MG SUPP PR PRN (19:50)
[2023-09-22] MEDS ORDERED: ALUMINUM/MAGNESIUM SUSP 30 ML UDC PO PRN (19:50)
[2023-09-22] MEDS ORDERED: tiZANidine HCL 4 MG TABLET PO PRN (19:50)
[2023-09-22] MEDS ORDERED: NALOXONE HCL 0.4 MG/1 ML VIAL/CARP IV PRN (19:50)
[2023-09-22] MEDS ORDERED: MAGNESIUM HYDROXIDE SUSP 30 ML UDC PO PRN (19:50)
[2023-09-22] MEDS: DULoxetine HCL 30 MG CAP PO SCH (22:02)
[2023-09-22] MEDS: GABAPENTIN 400 MG CAP PO SCH (22:02)
[2023-09-22] MEDS: PANTOprazole 40 MG TAB PO SCH (22:02)
[2023-09-22] MEDS: DOCUSATE SODIUM/SENNA 50/8.6MG TAB PO SCH (22:03)
[2023-09-22] MEDS: traZODone HCL 100 MG TAB PO SCH (22:03)
[2023-09-23] MEDS: LACTATED RINGER'S 1,000 ML IV SCH (00:10)
[2023-09-23] MEDS: HYDROmorphone INJ 0.5 MG/0.5 ML SYR IV PRN (01:01)
[2023-09-23 03:56] LABS: Basophils # (auto) 0.03 K/uL (0.00-0.20); Basophils % (auto) 0.5 %; Eosinophils # (auto) 0.16 K/uL (0.00-0.50); Eosinophils % (auto) 2.7 %; Hematocrit (blood only) 30.4 % (37.0-47.0); Hemoglobin 10.1 g/dl (12.0-16.0); Immature Granulocytes # (auto) 0.04 K/uL (0.01-0.20); Immature Granulocytes % (auto) 0.7 %; Lymphocytes # (auto) 1.66 K/uL (1.20-3.40); Lymphocytes % (auto) 28.2 %; Mean Corpuscular Hemoglobin 33.7 pg (25.0-34.0); Mean Corpuscular Hgb Conc 33.2 g/dL (32.0-36.0); Mean Corpuscular Volume 101.3 fL (80.0-100.0); Mean Platelet Volume 10.2 fL (9.4-12.4); Monocytes # (auto) 0.62 K/uL (0.11-0.59); Monocytes % (auto) 10.5 %; Neutrophils # (auto) 3.38 K/uL (1.40-6.50); Neutrophils % (auto) 57.4 %; Platelet Count 222 K/uL (130-400); RDW Standard Deviation 51.1 fL (36.4-46.3); White Blood Count 5.89 K/ul (4.8-10.8)
[2023-09-23 04:14] LABS: Albumin Globulin Ratio 1.3 (0.9-2); Albumin Level 3.5 gm/dl (3.4-5.0); BUN Creatinine Ratio 20.4 (10-20); Bilirubin,Total 0.5 mg/dl (0.2-1.0); Calcium 9.7 mg/dl (8.6-10.3); Creatinine Clr Calc Pharmacy 45.8 ml/min; Est GFR (African American) 55.8 ml/min; Est GFR (Non-African American) 48.2 ml/min; Globulin 2.8 gm/dl (2.5-4.0); Magnesium 1.7 mg/dl (1.7-2.4); Potassium 3.9 mmol/L (3.5-5.1); Total Protein 6.3 gm/dl (6.0-8.3)
[2023-09-23] MEDS: ceFAZolin 2000MG 2,000 MG/15 ML SYR IV SCH (06:14)
[2023-09-23] MEDS: allopurinoL 300 MG TAB PO SCH (08:57)
[2023-09-23] MEDS: amLODIPine BESYLATE 5 MG TAB PO SCH (08:57)
[2023-09-23] MEDS: carvediloL 6.25 MG TAB PO SCH (08:58)
[2023-09-23] MEDS: CITALOPRAM 40 MG TAB PO SCH (08:58)
[2023-09-23] MEDS: LOSARTAN POTASSIUM 25 MG TAB PO SCH (08:59)
[2023-09-23] MEDS: POLYETHYLENE (MIRALAX) 17 GM PACK PO SCH (09:00)
[2023-09-23] MEDS: SPIRONOLACTONE 25 MG TAB PO SCH (09:25)
--- NOTE | 2023-09-23 11:27 | Electrocardiogram Report ---
Test Reason : Blood Pressure : / mmHG Vent. Rate : 084 BPM Atrial Rate : 084 BPM P-R Int : 196 ms QRS Dur : 098 ms QT Int : 390 ms P-R-T Axes : 051 006 091 degrees QTc Int : 460 ms Normal sinus rhythm Left ventricular hypertrophy with repolarization abnormality Abnormal ECG When compared with ECG of 14-JUL-2022 12:20, No significant change Confirmed by Olaf Jackson ([id number]) on 09/23/2023 11:27:02 AM Referred By: REFERRED SELF Confirmed By:Olaf Jackson
[2023-09-23] MEDS: HYDROCODONE/ACETAMOPHEN 5/325MG TAB PO PRN (11:34)
--- NOTE | 2023-09-23 11:35 | Orthopedic Consultation ---
Date of Consultation September 23, 2023 Assessment & Plan (1) Avascular necrosis of bone of left hip: Discussed options with patient. We could consider a corticosteroid injection into the femoral acetabular joint. She does not really wish to proceed with this. She would like to have surgery performed to take care of this once and for all. She does not wish to prolong this any further. I will discuss with Dr. Teran current findings. We have also discussed with him on who he may want to consult to discuss performing a total hip arthroplasty. I explained to her that most of the time this is done as an outpatient but potentially someone could have an opportunity to do this while she is an inpatient since she is being admitted. She is currently NPO. We will allow her to be out of bed, partial weightbearing with a walker. Pain medicine as prescribed. She will need DVT prophylaxis postoperatively if it is determined that she will have surgery. She understands and agrees with the plan. She is thankful for my time today. We will regroup with her on potentially who we can get to see her for possibly doing a total hip arthroplasty. She is fine with anyone in our group or really any group that could potentially do this for her sooner rather than later. She may have a regular diet as no surgery will be performed today. I spent approximately 20 minutes reviewing the chart, obtaining history and performing a physical exam with the patient and discussing treatment options. History of Present Illness Reason for Consultation: Acute left hip pain x 6 weeks Attending Physician: Geovanni Harkins MD History of Present Illness Patient was seen and evaluated in the emergency room for her left hip. She s tates that it started around [place] time. She had an incident around [place] where she was doing a lot of up-and-down and standing and twisting and felt a sudden pop in her left hip. She then developed a lot of pain and bruising on the outer aspect of her left hip. A month prior to her hip incident she was on a steroid for an upper respiratory infection. She otherwise is not on any chronic steroids. She has no history of alcoholism. She states about a month ago she saw someone at [facility] and had an injection and what she believes to be the greater trochanter bursa. She states it really has not done anything to help her pain. Her pain is progressively worsened to the point now where she needs to use a cane. Prior to this incident she did not have any hip pain. 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 Is been hard for her to walk. This is really slowed her down. She has history of high blood pressure and high cholesterol with some history of TIAs. She did have a nephrectomy due to kidney failure after doing an MRI with contrast. She states that she was at her doctor yesterday and her blood pressure was elevated and he sent her to the emergency room because of her left hip pain most likely elevating her blood pressure to get that under control and evaluate the left hip. She has not had anything to eat or drink. She is very calm and comfortable lying in bed. She denies any known fall. She would like to potentially have her hip replaced while she is in house. I explained to her that there is a lot of process and workup that goes into getting that done and a lot of schedules are filled for this type of procedure. She is understandable. She would like to talk to someone that does hip replacements to see what the next course of action could be. She is anxious to get back to work in her normal activity level. Allergies Allergy/AdvReac Type Severity Reaction Status Date / Time oxycodone AdvReac Severe syncope, Verified 09/22/23 13:11 low bp nickel AdvReac Intermediate rash and Verified 09/22/23 13:11 skin turns green Home Medications Medication Instructions Recorded Confirmed Type trazodone 100 mg tablet 100 mg PO HS Sleep ##0 09/22/11 09/22/23 History citalopram 40 mg tablet 40 mg PO QAM ##0 03/30/18 09/22/23 History carvedilol phosphate 20 mg 20 mg PO QAM 07/03/22 09/22/23 History capsule,[id number] multiphase multivitamin 1 tab PO QAM 08/19/22 09/22/23 History allopurinol 300 mg tablet 300 mg PO QAM 09/23/22 09/22/23 History amlodipine 10 mg tablet 10 mg PO QAM 09/22/23 09/22/23 History duloxetine 30 mg capsule,delayed 30 mg PO HS 09/22/23 09/22/23 History release gabapentin 400 mg capsule 400 mg PO TID 09/22/23 09/22/23 History hydrocodone 5 mg-acetaminophen 325 1 tab PO Q8 PRN Severe Pain (Scale 09/22/23 09/22/23 History mg tablet Score 7-10) olmesartan 5 mg tablet 5 mg PO QAM 09/22/23 09/22/23 History omeprazole 40 mg capsule,delayed 40 mg PO BID 09/22/23 09/22/23 History release spironolactone 25 mg tablet 25 mg PO QAM 09/22/23 09/22/23 History ticagrelor 90 mg tablet (Brilinta) 90 mg PO AMHS 09/22/23 09/22/23 History tizanidine 2 mg tablet 2 mg PO HS PRN Muscle Spasm 09/22/23 09/22/23 History Patient History Medical History (Updated 09/22/23 @ 23:28 by Angel Tineo PA-C) Neck pain Carotid artery stenosis Diverticular disease Mesenteric artery stenosis Gout HTN (hypertension) Chronic back pain Hypertension Hyperlipidemia Surgical History History of CEA (carotid endarterectomy) History of arthroplasty of right knee History of back surgery History of carpal tunnel surgery right H/O left cataract extraction 04/29/18-2mg IV versed given without issues History of bilateral tubal ligation History of arthroscopy chencho knee History of colonoscopy w/ polypectomy History of endoscopic sinus surgery Family History Mother Family history of early CAD Social History Smoking Status: Unknown if ever smoked Second Hand Exposure: No; Do You Dip or Chew Tobacco: No; Hx Alcohol Use: No Hx Substance Use: No Preferred Language: Italian Communication Ability: Effective Visual Impairment: No Limitations [employer] Developer Required: No Beliefs That Will Affect Care: None marital status: Single Current Living Situation: Family Feels Safe at Home: Yes Assistive Devices: None Review of Systems Review of Systems: As per HPI otherwise reviewed and noncontributory Physical Exam Musculoskeletal: Exam focused on her left lower extremity: She has no edema in bilateral lower extremities. The dorsalis pedis and posterior tibial pulses are 1+. Normal sensation. Strength of her left ankle is 5/5. She has no calf tenderness with palpation. She is able to perform active range of motion of the left knee to about 90 degrees but this does reproduce pain in her left hip. She is able to independently straight leg raise just barely off the bed due to pain in her left hip. She has pain with passive logrolling of the left hip. Pain with passive range of motion of the left hip. She has pain with active motion although she is able to flex her hip to about 45 degrees with significant pain. She has mild tenderness along the lateral IT band along the greater trochanter. There is no bruising today. Skin is intact. No pain along the femur with palpation. Results & Data Vital Signs (Past 12 Hours) Vital Signs Pulse Pulse Resp BP Pulse Ox Pulse Ox O2 Del Method 09/23/23 09:36 70 18 122/63 95 09/23/23 07:04 85 09/23/23 05:30 93 H 16 195/72 H 98 Nasal Cannula 09/23/23 02:15 73 16 165/64 H 93 Room Air 09/23/23 02:00 93 09/23/23 01:26 83 15 164/61 H 91 Room Air 09/23/23 00:12 93 H O2 Del Method O2 Flow Rate 09/23/23 09:36 4 09/23/23 07:04 09/23/23 05:30 2 09/23/23 02:15 09/23/23 02:00 Room Air 09/23/23 01:26 09/23/23 00:12 Laboratory Results 09/23/23 09/22/23 09/22/23 Range/Units 03:45 20:28 18:45 WBC 5.89 (4.8-10.8) K/ul RBC 3.00 L (4.20-5.40) M/uL Hgb 10.1 L (12.0-16.0) g/dl Hct 30.4 L (37.0-47.0) % MCV 101.3 H (80.0-100.0) fL MCH 33.7 (25.0-34.0) pg MCHC 33.2 (32.0-36.0) g/dL RDW Std Deviation 51.1 H (36.4-46.3) fL RDW Coeff of Geeta 14.0 (11.5-14.5) % Plt Count 222 (130-400) K/uL MPV 10.2 (9.4-12.4) fL Immature Gran % (Auto) 0.7 % Neut % (Auto) 57.4 % Lymph % (Auto) 28.2 % Foard % (Auto) 10.5 % Eos % (Auto) 2.7 % Baso % (Auto) 0.5 % Neut # (Auto) 3.38 (1.40-6.50) K/uL Lymph # (Auto) 1.66 (1.20-3.40) K/uL Foard # (Auto) 0.62 H (0.11-0.59) K/uL Eos # (Auto) 0.16 (0.00-0.50) K/uL Baso # (Auto) 0.03 (0.00-0.20) K/uL Immature Gran # (Auto) 0.04 (0.01-0.20) K/uL PT (9.0-12.0) Seconds INR (0.9-1.1) APTT (21-31) Seconds PTT Ratio Sodium 139 (136-145) mmol/L Potassium 3.9 (3.5-5.1) mmol/L Chloride 106 (98-107) mmol/L Carbon Dioxide 25 (21-32) mmol/L Anion Gap 8 (3-11) BUN 23 (6-23) mg/dl Creatinine 1.13 (0.6-1.2) mg/dl Est Cr Clr Drug Dosing 45.8 Est GFR ( Amer) 55.8 ml/min Est GFR (Non-Af Amer) 48.2 ml/min BUN/Creatinine Ratio 20.4 H (10-20) Glucose 110 H (70-99(Fasting)) mg/dl Calcium 9.7 (8.6-10.3) mg/dl Magnesium 1.7 (1.7-2.4) mg/dl Total Bilirubin 0.5 (0.2-1.0) mg/dl AST 15 (13-39) U/L ALT 9 (7-52) U/L Alkaline Phosphatase 98 (34-104) U/L Total Protein 6.3 (6.0-8.3) gm/dl Albumin 3.5 (3.4-5.0) gm/dl Globulin 2.8 (2.5-4.0) gm/dl Albumin/Globulin Ratio 1.3 (0.9-2) 25-OH Vitamin D Total 23.2 L (30-100) ng/ml Urine Color Yellow Urine Appearance Clear (Clear) Urine pH 6.0 (4.5-7.5) Ur Specific [place] 1.014 (1.000-1.030) Urine Protein Negative (Negative) Urine Glucose (UA) Negative (Negative) Urine Ketones Negative (Negative) Urine Blood 1+ H (Negative) Urine Nitrite Negative (Negative) Urine Bilirubin Negative (Negative) Urine Urobilinogen Negative (Negative) Ur Leukocyte Esterase Trace H (Negative) Urine WBC (Auto) 10-30 H (0-5) /hpf Urine RBC (Auto) 5-10 H (0-4) /hpf U Hyaline Cast (Auto) 0 (0-5) /lpf U Epithel Cells (Auto) >30 H (0-5) /lpf Urine Bacteria (Auto) Negative (Negative) Nasal Screen MRSA (PCR) Negative (Negative) 09/22/23 Range/Units 14:18 WBC 8.64 (4.8-10.8) K/ul RBC 3.37 L (4.20-5.40) M/uL Hgb 11.2 L (12.0-16.0) g/dl Hct 34.2 L (37.0-47.0) % MCV 101.5 H (80.0-100.0) fL MCH 33.2 (25.0-34.0) pg MCHC 32.7 (32.0-36.0) g/dL RDW Std Deviation 51.8 H (36.4-46.3) fL RDW Coeff of Geeta 14.1 (11.5-14.5) % Plt Count 272 (130-400) K/uL MPV 10.8 (9.4-12.4) fL Immature Gran % (Auto) 0.8 % Neut % (Auto) 62.1 % Lymph % (Auto) 24.9 % Foard % (Auto) 9.4 % Eos % (Auto) 2.1 % Baso % (Auto) 0.7 % Neut # (Auto) 5.37 (1.40-6.50) K/uL Lymph # (Auto) 2.15 (1.20-3.40) K/uL Foard # (Auto) 0.81 H (0.11-0.59) K/uL Eos # (Auto) 0.18 (0.00-0.50) K/uL Baso # (Auto) 0.06 (0.00-0.20) K/uL Immature Gran # (Auto) 0.07 (0.01-0.20) K/uL PT 10.9 (9.0-12.0) Seconds INR 1.0 (0.9-1.1) APTT 29 (21-31) Seconds PTT Ratio 1.0 Sodium 138 (136-145) mmol/L Potassium 4.1 (3.5-5.1) mmol/L Chloride 103 (98-107) mmol/L Carbon Dioxide 26 (21-32) mmol/L Anion Gap 9 (3-11) BUN 28 H (6-23) mg/dl Creatinine 1.42 H (0.6-1.2) mg/dl Est Cr Clr Drug Dosing Not Reportable Est GFR ( Amer) 42.4 ml/min Est GFR (Non-Af Amer) 36.5 ml/min BUN/Creatinine Ratio 19.7 (10-20) Glucose 105 H (70-99(Fasting)) mg/dl Calcium 10.3 (8.6-10.3) mg/dl Magnesium (1.7-2.4) mg/dl Total Bilirubin 0.5 (0.2-1.0) mg/dl AST 14 (13-39) U/L ALT 11 (7-52) U/L Alkaline Phosphatase 104 (34-104) U/L Total Protein 7.3 (6.0-8.3) gm/dl Albumin 4.2 (3.4-5.0) gm/dl Globulin 3.1 (2.5-4.0) gm/dl Albumin/Globulin Ratio 1.4 (0.9-2) 25-OH Vitamin D Total (30-100) ng/ml Urine Color Urine Appearance (Clear) Urine pH (4.5-7.5) Ur Specific [place] (1.000-1.030) Urine Protein (Negative) Urine Glucose (UA) (Negative) Urine Ketones (Negative) Urine Blood (Negative) Urine Nitrite (Negative) Urine Bilirubin (Negative) Urine Urobilinogen (Negative) Ur Leukocyte Esterase (Negative) Urine WBC (Auto) (0-5) /hpf Urine RBC (Auto) (0-4) /hpf U Hyaline Cast (Auto) (0-5) /lpf U Epithel Cells (Auto) (0-5) /lpf Urine Bacteria (Auto) (Negative) Nasal Screen MRSA (PCR) (Negative) Diagnostic Findings XR hip LT 2V w pelvis CLINICAL HISTORY: L hip pain COMPARISON STUDY: Abdomen and pelvis CT 07/04/2022. FINDINGS: Subchondral sclerosis within the superior aspect of the left femoral head with mild articular collapse. This is new compared to the prior study and is consistent with avascular necrosis. Otherwise, no acute fracture or dislocation within the pelvis or hips. Moderate degenerative changes within the sacroiliac joints. Lumbar spinal fusion hardware is noted. 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 IMPRESSION: Subchondral sclerosis within the superior aspect of the left femoral head with mild articular collapse. This is new compared to the prior study and is consistent with avascular necrosis.
[2023-09-23] MEDS: hydrALAZINE HCL 20 MG/ML VIAL IV PRN (11:38)
[2023-09-23] MEDS: LOSARTAN POTASSIUM 25 MG TAB PO STA (14:27)
[2023-09-23] MEDS: hydrALAZINE HCL 20 MG/ML VIAL IV STA (14:28)
[2023-09-23] MEDS: HYDROmorphone INJ 0.5 MG/0.5 ML SYR IV STA (14:29)
[2023-09-23] MEDS: ACETAMINOPHEN 1,000 MG/100 ML VIAL IV SCH (14:31)
--- NOTE | 2023-09-23 18:29 | Hospitalist Progress Note ---
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 MR L hip:1. Left hip avascular necrosis with a likely subacute left tiny femoral head fracture and some subchondral collapse/loss of the normal sphericity. 2. Multifocal muscular and mixed age tendon injuries, as above. Small left hip effusion. Edema throughout the subcutaneous tissues as well as within the muscles. There are multifocal partial-thickness tendon tears involving the indirect head/origin of rectus femoris, gluteus medius and minimus, obturators internus, and vastus lateralis. This is likely related to acute on chronic trauma as there is some fatty atrophy. L hip pain L hip avascular necrosis Closed fx of L femur head Multifocal muscular and mixed age tendon injuries admit to med/tele 2/2 blood pressure management consult orthopedics - pt previously has seen WILLIAN, LUIS ALBERTO, [facility] will consult Dr. Teran who is senior national account manager obtain CXR, ECG for pre op clearance - pt admits to being able to ambulate 1 flight of steps w/o CP, SOB prior to injury pt on brilinta - will hold a.m. dose until seen by ortho to determine plan NPO after midnight - will place on LR @ 00:00 x 1 L [place] -mild to mod pain; IV dilaudid severe pain bowel regimen ordered check vit D level in a.m. MRI done at [facility] - will need to have images pushed into [facility] HTN uncontrolled follows JOE Nephro likely elevated 2/2 pain currently continue coreg, amlodipine, olmesartan, aldactone give labetolol 5mg IV x 1 now PVD hx of EDIE s/p R CEA, SMA stenosis s/p stenting previously on ASA/Plavix switched to brilinta 2/2 subtherapuetic ASA/Plavix levels per neurology Hx of CVA/TIA not on statin therapy on Brilinta, but will hold for possible procedure CKD Stage IV Atrophic R kidney follows Dr. Clark baseline cr 1.4-1.7 chronic, stable Anemia hgb stable at 11.2/34.2 likely chronic renal disease DVT ppx: none due to possible upcoming procedure, recommend resuming brilinta at discretion of orthopedics, consider chemical prophylaxis after Ortho evaluation Dispo: admit to med/tele FULL CODE PCP: Karl Howe Pt was seen and examined in collaboration with Dr. Manrique, please see addendum A total of 76 minutes was spent coordinating, documenting, and providing care for this patient excluding time spent in the performance of separately billed services. This included personally viewing all current laboratories and imaging studies, medication reconciliation, outpatient chart review, and discussion with specialists. Admission and Anticipated Discharge Date Admission Date: September 22, 2023 Results & Data Results & Data Vital Signs (Past 12 Hours) Vital Signs Temp Pulse Pulse Resp BP Pulse Ox Pulse Ox 09/23/23 17:01 186/63 H 09/23/23 16:18 73 09/23/23 16:14 96 09/23/23 15:38 36.9 C 79 18 193/63 H 96 09/23/23 09:36 70 18 122/63 95 09/23/23 07:04 85 O2 Del Method O2 Del Method O2 Flow Rate 09/23/23 17:01 09/23/23 16:18 09/23/23 16:14 Room Air 09/23/23 15:38 Room Air 09/23/23 09:36 4 09/23/23 07:04 (4) HTN (hypertension) Hypertension type: unspecified Qualified Code(s): I10 - Essential (primary) hypertension
[2023-09-23] MEDS: carvediloL 12.5 MG TAB PO SCH (19:54)
[2023-09-23] MEDS: carvediloL 6.25 MG TAB PO STA (23:36)
[2023-09-24] MEDS: amLODIPine BESYLATE 5 MG TAB PO ONE (03:58)
[2023-09-24] MEDS: SODIUM CHLORIDE 0.65% NA SOLN 45 ML (OCEAN) ONE (03:58)
--- NOTE | 2023-09-24 07:01 | Surgery Progress Note ---
Date of Service September 24, 2023 Assessment & Plan (1) Acute pain of left hip: (2) Avascular necrosis of bone of left hip: Plan: 72-year-old female with multiple medical comorbidities with what appears to be avascular necrosis and collapse of the femoral head. It is very likely this is somewhat related to steroid use in the past. Regardless looks like she is got head collapse which is going to likely just be progressive. She is admitted for hip pain. Having difficulty getting around. She like to have her hip fixed. Plan: When to make sure she is medically optimized. We have found time in the OR schedule tomorrow to do this. Will plan on doing a hip replacement. The risks Mente this procedure explained to the patient include but not limited to DVT PE infection neurological and vascular bleeding palm pain limb range of motion at this excetra. The patient understands and desires to proceed. Informed consent is obtained. We will need to hold her Brilinta. Will D use DVT prophylaxis including thigh- high teds and SCDs. Will likely use a cemented stem due to her osteopenia. She is anemic and she may need blood. Will have that ready. All questions were answered. Admission and Anticipated Discharge Date Admission Date: September 22, 2023 Subjective 72-year-old female admitted with left hip pain. That this all started around [place] time. She developed the insidious onset of hip pain to the point where she is having to use a cane to get around. She presented to emergency room yesterday and was admitted for hip pain. No trauma. She has taken steroids in the past. She describes groin pain. She has been treated in our office for knee arthritis with some injections which provide some temporary relief. This is completely different. This is being become more debilitating. No other complaints Physical Exam Physical Exam: Physical examination is a pleasant elderly female. Looks older than her stated age. She is lying in bed looks pretty comfortable in bed. Examination left hip and leg reveals no obvious deformity. She does have obvious arthritic change in her knee. Leg lengths are equal. She got pain with attempted elevation of her leg. I can internally Rotated with some moderate pain. Leg lengths are equal. She is neurologically intact. Results & Data Vital Signs (Past 12 Hours) Vital Signs Temp Pulse Resp BP BP Pulse Ox O2 Del Method 09/24/23 05:38 193/62 H 09/24/23 03:21 36.8 C 90 18 204/63 H 207/65 H 96 Room Air 09/24/23 00:12 197/54 H 09/23/23 23:15 36.8 C 71 18 197/54 H 212/61 H 94 Room Air 09/23/23 19:01 37.1 C 84 16 178/61 H 96 Room Air Diagnostic Findings X-rays of the hip were reviewed. It does suggest that she is got some AVN of the femoral head with some slight collapse. Diffuse osteopenia. PG Care Time/CCT Total # of Minutes Spent Total Time Spent with Patient: Total time spent is greater than 50% in coordination of care (as documented) at patient's floor/unit and/or counseling patient: Coding Level of Care Code 43869 SUB INP/OBS CARE 2/35MIN Diagnoses Acute pain of left hip M25.552 Avascular necrosis of bone of left hip M87.052
[2023-09-24] MEDS: LOSARTAN POTASSIUM 25 MG TAB PO SCH (08:18)
[2023-09-24 08:42] LABS: Basophils # (auto) 0.03 K/uL (0.00-0.20); Basophils % (auto) 0.5 %; Eosinophils # (auto) 0.19 K/uL (0.00-0.50); Hematocrit (blood only) 32.4 % (37.0-47.0); Hemoglobin 10.4 g/dl (12.0-16.0); Immature Granulocytes # (auto) 0.03 K/uL (0.01-0.20); Immature Granulocytes % (auto) 0.5 %; Lymphocytes # (auto) 1.39 K/uL (1.20-3.40); Lymphocytes % (auto) 21.6 %; Mean Corpuscular Hemoglobin 33.3 pg (25.0-34.0); Mean Corpuscular Hgb Conc 32.1 g/dL (32.0-36.0); Mean Corpuscular Volume 103.8 fL (80.0-100.0); Mean Platelet Volume 10.6 fL (9.4-12.4); Monocytes % (auto) 10.9 %; Neutrophils % (auto) 63.5 %; Platelet Count 225 K/uL (130-400); RDW Coefficient of Variation 14.4 % (11.5-14.5); Red Blood Count 3.12 M/uL (4.20-5.40); White Blood Count 6.44 K/ul (4.8-10.8)
[2023-09-24] MEDS: carvediloL 6.25 MG TAB PO SCH (08:42)
[2023-09-24 08:52] LABS: BUN Creatinine Ratio 19.5 (10-20); Calcium 9.7 mg/dl (8.6-10.3); Creatinine Clr Calc Pharmacy 39.8 ml/min; Est GFR (African American) 45.8 ml/min; Est GFR (Non-African American) 39.6 ml/min; Potassium 4.2 mmol/L (3.5-5.1)
--- NOTE | 2023-09-24 10:46 | Nephrology Consultation ---
Date of Consultation September 24, 2023 Assessment & Plan (1) Hypertensive urgency: (2) Avascular necrosis of bone of left hip: Plan 72-year-old female with significant peripheral vascular disease, CVA, mesenteric ischemia and superior mesenteric artery stent, atrophic right kidney, b/l Renal artery stenosis, stage III B CKD, b/l cr 1.5 to 1.6 mg/dl, admitted with left hip pain secondary to fracture and avascular necrosis of left hip and plan for surgery on 09/25/2023. Since admission her blood pressure has been running quite high. -- Increase carvedilol to 25 mg twice a day, increase spironolactone to 50 mg daily -- Continue on amlodipine and current dose of olmesartan. -- Hydralazine 10 mg IV as needed for systolic blood pressure 160 -- May need renal artery imaging to follow-up on bilateral severe renal artery stenosis. Thank you for allowing me to participate in your patient's care. It was a pleasure to see Radha. History of Present Illness Reason for Consultation: Hypertensive urgency. Attending Physician: Geovanni Harkins MD History of Present Illness Ms. 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 Nephrology consult was requested as her blood pressure has been significantly elevated throughout the hospital course with history of poorly controlled hypertension. EMR records were reviewed in detail during patient's visit. Radha presented to ER on 09/22/2023 with persistent left hip pain for almost a month. She had an MRI done at outside hospital showing avascular necrosis of left hip. She was seen by orthopedics and tentatively planning for surgery on 09/25/2023. Kidney function staying relatively stable, over last 2 days her creatinine has been 1.3-1.4 mg/dl with baseline creatinine somewhere around 1.5- 1.7 mg/dl. In acute kidney injury recently, creatinine was 2.6 which rapidly improved.. Other electrolyte has been acceptable. Throughout her hospital course blood pressure has been staying significantly elevated, systolic blood pressure has been around 180s to 220 but diastolic on 50s to 60s. She has been on amlodipine 10 mg, carvedilol 12.5 twice a day, spironolactone 25 mg daily olmesartan 5 mg daily. She has history of significant peripheral vascular disease previously had superior mesenteric artery stent for mesenteric ischemia. Had carotid endarterectomy. Renal angiogram on 06/06/19 showed severe proximal right renal artery stenosis and moderate to severe proximal left renal artery stenosis, has been following with Dr. Joya. Last follow-up was seen June 2020, at that time she was otherwise stable and plan to have a follow-up in a year. Ultrasound showed relatively atrophic right kidney. Her blood pressure generally runs high although she reports at home her blood pressure better systolic blood pressure in 140s to 150s. Considering her history of CVA and carotid stenosis she does poorly with lower blood pressure and generally her blood pressure goal has been around systolic above 140s. Morning she was otherwise feeling well, reports improvement in her left hip as long as she does not move. Allergies Allergy/AdvReac Type Severity Reaction Status Date / Time oxycodone AdvReac Severe syncope, Verified 09/22/23 13:11 low bp nickel AdvReac Intermediate rash and Verified 09/22/23 13:11 skin turns green Home Medications Medication Instructions Recorded Confirmed Type trazodone 100 mg tablet 100 mg PO HS Sleep ##0 09/22/11 09/22/23 History citalopram 40 mg tablet 40 mg PO QAM ##0 03/30/18 09/22/23 History carvedilol phosphate 20 mg 20 mg PO QAM 07/03/22 09/22/23 History capsule,[id number] multiphase multivitamin 1 tab PO QAM 08/19/22 09/22/23 History allopurinol 300 mg tablet 300 mg PO QAM 09/23/22 09/22/23 History amlodipine 10 mg tablet 10 mg PO QAM 09/22/23 09/22/23 History duloxetine 30 mg capsule,delayed 30 mg PO HS 09/22/23 09/22/23 History release gabapentin 400 mg capsule 400 mg PO TID 09/22/23 09/22/23 History hydrocodone 5 mg-acetaminophen 325 1 tab PO Q8 PRN Severe Pain (Scale 09/22/23 09/22/23 History mg tablet Score 7-10) olmesartan 5 mg tablet 5 mg PO QAM 09/22/23 09/22/23 History omeprazole 40 mg capsule,delayed 40 mg PO BID 09/22/23 09/22/23 History release spironolactone 25 mg tablet 25 mg PO QAM 09/22/23 09/22/23 History ticagrelor 90 mg tablet (Brilinta) 90 mg PO AMHS 09/22/23 09/22/23 History tizanidine 2 mg tablet 2 mg PO HS PRN Muscle Spasm 09/22/23 09/22/23 History Patient History Medical History (Updated 09/24/23 @ 10:45 by Cindi Oreilly MD) Hypertensive urgency Neck pain Carotid artery stenosis Diverticular disease Mesenteric artery stenosis Gout HTN (hypertension) Chronic back pain Hypertension Hyperlipidemia Surgical History History of CEA (carotid endarterectomy) History of arthroplasty of right knee History of back surgery History of carpal tunnel surgery right H/O left cataract extraction 04/29/18-2mg IV versed given without issues History of bilateral tubal ligation History of arthroscopy chencho knee History of colonoscopy w/ polypectomy History of endoscopic sinus surgery Family History Mother Family history of early CAD Social History Smoking Status: Unknown if ever smoked Second Hand Exposure: No; Do You Dip or Chew Tobacco: No; Hx Alcohol Use: No Hx Substance Use: No Preferred Language: Sinhala Communication Ability: Effective Visual Impairment: No Limitations Lens Cleaner Required: No Beliefs That Will Affect Care: None marital status: Single Current Living Situation: Family Feels Safe at Home: Yes Assistive Devices: None Review of Systems Review of Systems: All systems reviewed & are unremarkable except as noted in Subjective Physical Exam Constitutional: WD/WN, vitals as above no acute distress Eyes: + anicteric sclerae Neck: normal visual inspection Respiratory: no respiratory distress Auscultation: lungs clear to auscultation bilaterally Cardiovascular: RRR, no murmur, no edema Gastrointestinal (Abdomen): Inspection/Auscultation: abdomen normal to inspection Musculoskeletal: Extremities: extremities normal to inspection Skin: no rashes, warm and dry Neurologic: no focal motor deficits Psychiatric: Orientation: alert and oriented x 3 Affect: euthymic affect Results & Data Vital Signs (Past 12 Hours) Vital Signs Temp Pulse Resp BP BP Pulse Ox O2 Del Method 09/24/23 10:38 80 178/57 H 09/24/23 07:37 36.6 C 91 H 18 186/61 H 94 Room Air 09/24/23 05:38 193/62 H 09/24/23 03:21 36.8 C 90 18 204/63 H 207/65 H 96 Room Air 09/24/23 00:12 197/54 H 09/23/23 23:15 36.8 C 71 18 197/54 H 212/61 H 94 Room Air PG Care Time/CCT Total # of Minutes Spent Total Time Spent with Patient: Total time spent is greater than 50% in coordination of care (as documented) at patient's floor/unit and/or counseling patient: Coding Level of Care Code 68880 INT INP/OBS CARE 3/75MIN Diagnoses Hypertensive urgency I16.0 Avascular necrosis of bone of left hip M87.052
--- NOTE | 2023-09-24 11:00 | Hospitalist Progress Note ---
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 MR L hip:1. Left hip avascular necrosis with a likely subacute left tiny femoral head fracture and some subchondral collapse/loss of the normal sphericity. 2. Multifocal muscular and mixed age tendon injuries, as above. Small left hip effusion. Edema throughout the subcutaneous tissues as well as within the muscles. There are multifocal partial-thickness tendon tears involving the indirect head/origin of rectus femoris, gluteus medius and minimus, obturators internus, and vastus lateralis. This is likely related to acute on chronic trauma as there is some fatty atrophy. L hip pain L hip avascular necrosis Closed fx of L femur head Multifocal muscular and mixed age tendon injuries admit to med/tele 2/2 blood pressure management consult orthopedics - pt previously has seen LUIS ALBERTO DORSEY [place] will consult Dr. Teran who is testing consultant obtain CXR, ECG for pre op clearance - pt admits to being able to ambulate 1 flight of steps w/o CP, SOB prior to injury pt on brilinta - will hold a.m. dose until seen by ortho to determine plan NPO after midnight - will place on LR @ 00:00 x 1 L [place] -mild to mod pain; IV dilaudid severe pain bowel regimen ordered check vit D level in a.m. MRI done at [facility] - will need to have images pushed into [facility] PACS 09/24 Plan for surgical intervention tomorrow Continue pain medications including IV Ofirmev every 8 hours, as needed [place] and IV Dilaudid HTN uncontrolled follows JOE Nephro likely elevated 2/2 pain currently continue coreg, amlodipine, olmesartan, aldactone give labetolol 5mg IV x 1 now 09/24 Nephrology service consulted Losartan increased to 25 mg p.o. daily Spironolactone increased to 50 mg p.o. daily Carvedilol increased to 25 mg p.o. twice daily Monitor closely PVD hx of EDIE s/p R CEA, SMA stenosis s/p stenting previously on ASA/Plavix switched to brilinta 2/2 subtherapuetic ASA/Plavix levels per neurology Hx of CVA/TIA not on statin therapy on Brilinta, but will hold for possible procedure -- Resume Brilinta as soon as possible once okay with orthopedic surgery service CKD Stage IV Atrophic R kidney follows Dr. Clark baseline cr 1.4-1.7 chronic, stable Anemia hgb stable at 11.2/34.2 likely chronic renal disease Creatinine 1.3 Nephrology service consulted Avoid nephrotoxic agents DVT ppx: Pending procedure Dispo: PT OT evaluation, may need acute rehab versus retirement facility FULL CODE PCP: Karl Howe plan of care discussed with patient in detail and at length all questions answered she is understanding, agreeable, comfortable with the plan of care Admission and Anticipated Discharge Date Admission Date: September 22, 2023 Subjective Follow-up for avascular necrosis of the hip, etc. Seen resting bedside chair, comfortable, not in distress States still having significant pain but somewhat improved compared to yesterday Pain medications relieving the pain no chest pain, dyspnea, palpitations, dizziness No other new symptoms Review of Systems Review of Systems: all noted and negative except for above Physical Exam Physical Exam: General- oriented x 3, not in distress, speaks in sentences with no effort or accessory muscle use Eyes- anicteric Neck- no JVD Lungs- clear breath sounds bilaterally, no rales/wheezes Heart- normal rate, regular rhythm; no murmurs Abdomen- normal bowel sounds, nondistended, soft, nontender Extremities- no pretibial edema, no calf tenderness Neuro- alert, oriented x 3; no gross focal neurologic deficits Skin- warm & dry Results & Data Results & Data Vital Signs (Past 12 Hours) Vital Signs Temp Pulse Resp BP BP Pulse Ox O2 Del Method 09/24/23 10:38 80 178/57 H 09/24/23 07:37 36.6 C 91 H 18 186/61 H 94 Room Air 09/24/23 05:38 193/62 H 09/24/23 03:21 36.8 C 90 18 204/63 H 207/65 H 96 Room Air 09/24/23 00:12 197/54 H 09/23/23 23:15 36.8 C 71 18 197/54 H 212/61 H 94 Room Air all noted and reviewed including below (4) HTN (hypertension) Hypertension type: unspecified Qualified Code(s): I10 - Essential (primary) hypertension
[2023-09-24] MEDS: carvediloL 6.25 MG TAB PO STA (11:33)
[2023-09-24] MEDS: SPIRONOLACTONE 25 MG TAB PO ONE (11:33)
[2023-09-24] MEDS: carvediloL 25 MG TAB PO SCH (20:41)
[2023-09-25] MEDS ORDERED: BUPIVACAINE 0.5 % 5 MG/1 ML PF 10ML VIAL ONE (06:30)
--- NOTE | 2023-09-25 07:42 | History & Physical Bridge Note ---
Date of Service September 25, 2023 History & Physical Bridge Note I have examined the patient, reviewed the History & Physical and in the interval since the performance of the History & Physical I have noted the following changes of clinical significance: no changes noted
[2023-09-25] MEDS: CHOLECALCIFEROL 25 MCG (1000 UNITS) TAB PO SCH (08:34)
[2023-09-25] MEDS: amLODIPine BESYLATE 5 MG TAB PO SCH (08:34)
[2023-09-25] MEDS: SPIRONOLACTONE 25 MG TAB PO SCH (09:58)
--- NOTE | 2023-09-25 11:10 | Nephrology Progress Note ---
Date of Service September 25, 2023 Assessment & Plan (1) Hypertensive urgency: (2) Avascular necrosis of bone of left hip: Plan 72-year-old female with significant peripheral vascular disease, CVA, mesenteric ischemia and superior mesenteric artery stent, atrophic right kidney, b/l Renal artery stenosis, stage III B CKD, b/l cr 1.5 to 1.6 mg/dl, admitted with left hip pain secondary to fracture and avascular necrosis of left hip and plan for surgery on 09/25/2023. Since admission her blood pressure has been running quite high. Overall blood pressure improved significantly. Otherwise asymptomatic. Plan for hip surgery today. --Continue carvedilol 25 mg twice a day, spironolactone 50 mg daily. Okay to increase spironolactone as needed -- Continue on amlodipine and current dose of olmesartan. -- Hydralazine 10 mg IV as needed for systolic blood pressure 160 -- Recommend checking lab tomorrow -- Considering bilateral significant renal artery stenosis noted on imaging previously, discussed with Dr. Joya yesterday who did not feel any intervention for renal artery stenosis be indicated at this time. Focus on medication adjustment for blood pressure control. Will sign off. Please contact if any further assistance needed. Admission and Anticipated Discharge Date Admission Date: September 22, 2023 Nael Garcia was seen and evaluated this morning. Overall she feels well, left hip pain is manageable as long as she does not move. Blood pressure still elevated but improved significantly since yesterday. Review of Systems Review of Systems: Detailed review of system was done and pertinent positives and negatives are mentioned above. Physical Exam Constitutional: WD/WN, vitals as above no acute distress Eyes: + anicteric sclerae Neck: normal visual inspection Respiratory: no respiratory distress Auscultation: lungs clear to auscultation bilaterally Cardiovascular: RRR, no murmur, no edema Musculoskeletal: Extremities: extremities normal to inspection Skin: no rashes, warm and dry Neurologic: no focal motor deficits Psychiatric: Orientation: alert and oriented x 3 Affect: euthymic affect Results & Data Vital Signs (Past 12 Hours) Vital Signs Temp Pulse Pulse Resp BP BP Pulse Ox 09/25/23 07:46 77 09/25/23 07:45 36.5 C 77 18 163/62 H 93 09/25/23 03:15 36.5 C 71 18 158/57 H 90 02/09/24 00:25 79 177/55 H 09/24/23 23:12 37.4 C 85 16 187/69 H 92 O2 Del Method 09/25/23 07:46 09/25/23 07:45 Room Air 09/25/23 03:15 Room Air 09/25/23 00:25 09/24/23 23:12 Room Air PG Care Time/CCT Total # of Minutes Spent Total Time Spent with Patient: Total time spent is greater than 50% in coordination of care (as documented) at patient's floor/unit and/or counseling patient: Coding Level of Care Code 97815 SUB INP/OBS CARE 2/35MIN Diagnoses Hypertensive urgency I16.0 Avascular necrosis of bone of left hip M87.052
[2023-09-25] MEDS ORDERED: MIDAZOLAM HCL 1 MG/ML 2ML VIAL ONE (11:43)
[2023-09-25] MEDS ORDERED: fentaNYL citrate PF 100 MCG/2 ML VIAL ONE (11:43)
[2023-09-25] MEDS ORDERED: DexMEDEtomidine HCL IV 100 MCG/ML VIAL IV ONE (11:45)
--- NOTE | 2023-09-25 12:00 | Anesthesiology Consultation ---
Date of Service September 25, 2023 Assessment & Plan (1) Encounter for pre-operative examination: Chart Review Chart Review: Acceptable Risk for Surgery and Patient NOT seen in Pre Admission Testing Consults Requested none Additional Notes patient with recent brilinta use, plan for GA d/t increased risk of hematoma History Surgery Operation Date: 09/25/23 12:30 Proposed Procedures p Left Total Hip Arthroplasty Cemented - Eliazar Singh MD Height/Weight Height: 5 ft 4 in Weight: 84.7 kg Allergies Allergy/AdvReac Type Severity Reaction Status Date / Time oxycodone AdvReac Severe syncope, Verified 09/22/23 13:11 low bp nickel AdvReac Intermediate rash and Verified 09/22/23 13:11 skin turns green Medications Home Medications Medication Instructions Recorded Confirmed Last Taken trazodone 100 mg tablet 100 mg PO HS Sleep ##0 09/22/11 09/22/23 09/21/23 citalopram 40 mg tablet 40 mg PO QAM ##0 03/30/18 09/22/23 09/22/23 carvedilol phosphate 20 mg 20 mg PO QAM 07/03/22 09/22/23 09/22/23 capsule,[id number] multiphase multivitamin 1 tab PO QAM 08/19/22 09/22/23 09/22/23 allopurinol 300 mg tablet 300 mg PO QAM 09/23/22 09/22/23 09/22/23 amlodipine 10 mg tablet 10 mg PO QAM 09/22/23 09/22/23 09/22/23 duloxetine 30 mg capsule,delayed 30 mg PO HS 09/22/23 09/22/23 09/22/23 release gabapentin 400 mg capsule 400 mg PO TID 09/22/23 09/22/23 09/22/23 hydrocodone 5 mg-acetaminophen 325 1 tab PO Q8 PRN Severe Pain (Scale 09/22/23 09/22/23 Unknown mg tablet Score 7-10) olmesartan 5 mg tablet 5 mg PO QAM 09/22/23 09/22/23 09/22/23 omeprazole 40 mg capsule,delayed 40 mg PO BID 09/22/23 09/22/23 09/22/23 release am spironolactone 25 mg tablet 25 mg PO QAM 09/22/23 09/22/23 09/22/23 ticagrelor 90 mg tablet (Brilinta) 90 mg PO AMHS 09/22/23 09/22/23 09/22/23 am tizanidine 2 mg tablet 2 mg PO HS PRN Muscle Spasm 09/22/23 09/22/23 Unknown Active Medications Generic Name Dose Route Start Last Admin Trade Name Freq PRN Reason Stop Dose Admin Hydrocodone Bitart/Acetaminophen 1 tab 09/22/23 19:50 09/25/23 10:12 Hydrocodone/Acetamophen 5/325mg Tab PO 10/06/23 19:49 1 tab Q4H PRN Administration MODERATE Pain (4,5,6) & Pre PT Allopurinol 300 mg 09/23/23 09:00 09/25/23 08:33 Allopurinol 300 Mg Tab PO 10/23/23 08:59 300 mg QAM JUDITH Administration Amlodipine Besylate 10 mg 09/25/23 09:00 09/25/23 08:34 Amlodipine Besylate 5 Mg Tab PO 10/25/23 08:59 10 mg QAM JUDITH Administration Carvedilol 25 mg 09/24/23 21:00 09/25/23 08:31 Carvedilol 25 Mg Tab PO 10/24/23 20:59 25 mg BID JUDITH Administration Citalopram Hydrobromide 40 mg 09/23/23 09:00 09/25/23 08:33 Citalopram 40 Mg Tab PO 10/23/23 08:59 40 mg QAM JUDITH Administration Duloxetine HCl 30 mg 09/22/23 21:00 09/24/23 20:40 Duloxetine Hcl 30 Mg Cap PO 10/22/23 20:59 30 mg HS JUDITH Administration Gabapentin 400 mg 09/22/23 21:00 09/25/23 08:31 Gabapentin 400 Mg Cap PO 10/22/23 20:59 400 mg TID JUDITH Administration Hydralazine HCl 5 mg 09/23/23 10:08 09/24/23 23:32 Hydralazine Hcl 20 Mg/Ml Vial IV 10/23/23 10:07 5 mg Q6H PRN Administration systolic bp > 160 Hydromorphone HCl 0.5 mg 09/22/23 19:50 09/25/23 11:15 Hydromorphone Inj 0.5 Mg/0.5 Ml Syr IV 10/06/23 19:49 0.5 mg Q3H PRN Administration Pain (6,7,8,9,10) Acetaminophen 1,000 mg in 100 mls @ 400 mls/hr 09/23/23 14:30 09/25/23 06:38 Ofirmev IV 09/26/23 14:29 Infused Q8H JUDITH Infusion Losartan Potassium 25 mg 09/24/23 09:00 09/25/23 08:32 Losartan Potassium 25 Mg Tab PO 10/24/23 08:59 25 mg QAM JUDITH Administration Pantoprazole Sodium 40 mg 09/22/23 21:00 09/25/23 08:32 Pantoprazole 40 Mg Tab PO 10/22/23 20:59 40 mg BID JUDITH Administration Polyethylene Glycol 17 gm 09/23/23 09:00 09/25/23 08:34 Polyethylene (Miralax) 17 Gm Pack PO 10/23/23 08:59 17 gm DAILY JUDITH Administration Senna/Docusate Sodium 2 tab 09/22/23 21:00 09/24/23 20:40 Docusate Sodium/Senna 50/8.6mg Tab PO 10/22/23 20:59 2 tab HS JUDITH Administration Spironolactone 50 mg 09/25/23 09:00 09/25/23 09:58 Spironolactone 25 Mg Tab PO 10/25/23 08:59 50 mg QAM JUDITH Administration Trazodone HCl 100 mg 09/22/23 21:00 09/24/23 20:41 Trazodone Hcl 100 Mg Tab PO 10/22/23 20:59 100 mg HS JUDITH Administration Vitamin D 25 mcg 09/25/23 09:00 09/25/23 08:34 Cholecalciferol 25 Mcg (1000 Units) Tab PO 10/25/23 08:59 25 mcg QAM JUDITH Administration NPO Date Last Intake of Fluids: 09/24/23 Time Last Intake of Fluids: 20:00 Last Intake of Fluids Comment: SIP OF WATER 0834 W/MEDS Date Last Intake of Solids: 09/24/23 Time Last Intake of Solids: 17:30 Past Medical History Medical History Hypertensive urgency Neck pain Carotid artery stenosis Diverticular disease Mesenteric artery stenosis Gout HTN (hypertension) Chronic back pain Hypertension Hyperlipidemia Past Family History Family History Mother Family history of early CAD Past Surgical History Surgical History History of CEA (carotid endarterectomy) History of arthroplasty of right knee History of back surgery History of carpal tunnel surgery right H/O left cataract extraction 04/29/18-2mg IV versed given without issues History of bilateral tubal ligation History of arthroscopy chencho knee History of colonoscopy w/ polypectomy History of endoscopic sinus surgery Social History Smoking Status: Unknown if ever smoked Do You Dip or Chew Tobacco: No Hx Alcohol Use: No Alcohol type: wine alcohol intake frequency: holidays/special occasions only Hx Substance Use: No substance use type: opiates Physical Exam Vital Signs Last Vital Signs Temp 98.4 F 09/25/23 11:37 Pulse 63 09/25/23 11:37 Resp 18 09/25/23 11:37 BP 160/55 H 09/25/23 11:37 Pulse Ox 93 09/25/23 11:37 O2 Del Method Room Air 09/25/23 11:37 O2 Flow Rate 4 09/23/23 09:36 Testing Laboratory Results 09/24/23 08:03 09/24/23 08:03 PT 10.9 Seconds (9.0-12.0) 09/22/23 14:18 INR 1.0 (0.9-1.1) 09/22/23 14:18 APTT 29 Seconds (21-31) 09/22/23 14:18 Urine Color Yellow 09/22/23 18:45 Urine Appearance Clear (Clear) 09/22/23 18:45 Urine pH 6.0 (4.5-7.5) 09/22/23 18:45 Ur Specific [place] 1.014 (1.000-1.030) 09/22/23 18:45 Urine Protein Negative (Negative) 09/22/23 18:45 Urine Glucose (UA) Negative (Negative) 09/22/23 18:45 Urine Ketones Negative (Negative) 09/22/23 18:45 Urine Nitrite Negative (Negative) 09/22/23 18:45 Ur Leukocyte Esterase Trace (Negative) H 09/22/23 18:45 Urine WBC (Auto) 10-30 /hpf (0-5) H 09/22/23 18:45 Urine RBC (Auto) 5-10 /hpf (0-4) H 09/22/23 18:45 U Hyaline Cast (Auto) 0 /lpf (0-5) 09/22/23 18:45 U Epithel Cells (Auto) >30 /lpf (0-5) H 09/22/23 18:45 Urine Bacteria (Auto) Negative (Negative) 09/22/23 18:45 Blood Type A Positive 09/23/23 21:19 Antibody Screen NEGATIVE 09/23/23 21:19 09/22/23 18:45 Urine Culture - Final Urine,Clean Catch More than three types of organisms present, all low counts mixed probable skin stefano. No further identifications or sensitivities to follow.
[2023-09-25] MEDS ORDERED: ePHEDrine sulfate 50 MG/ML AMP IV PRN (12:01)
[2023-09-25] MEDS ORDERED: ONDANSETRON INJ 2 MG/ML 2 ML VIAL IV PRN ×2 (12:01→16:03)
[2023-09-25] MEDS ORDERED: ATROPINE SULFATE 0.1 MG/ML 10ML SYR IV PRN (12:01)
[2023-09-25] MEDS: TRANEXAMIC ACID / 0.7% NACL 1000MG/100ML BAG IV ONE (12:42)
[2023-09-25] MEDS: ceFAZolin 2,000 MG/15 ML IV PUSH IV ONE (12:42)
[2023-09-25] MEDS: TRANEXAMIC ACID / 0.7% NACL 1,000 MG/100 ML BAG IV ONE (12:42)
[2023-09-25] MEDS: ceFAZolin 2000MG 2,000 MG/15 ML SYR IV ONE (12:50)
[2023-09-25] MEDS ORDERED: HYDROmorphone INJ 2 MG/ML SYR/VIAL ONE (13:32)
[2023-09-25] MEDS: BUPIVACAINE/EPINEPHRINE 0.5% MPF 1:200,000 30 ML VIAL ONE (14:20)
[2023-09-25] MEDS ORDERED: DEXAMETHASONE SOD INJ 4 MG/ML VIAL ONE (14:29)
[2023-09-25] MEDS ORDERED: PROPOFOL IV EMULSION 10 MG/ML 20 ML VIAL IV ONE (14:29)
[2023-09-25] MEDS ORDERED: ONDANSETRON INJ 2 MG/ML 2 ML VIAL ONE (14:29)
--- NOTE | 2023-09-25 14:58 | Anesthesiology Progress Note ---
Date of Service September 25, 2023 Anesthesia Post Procedure Vital Signs Vital Signs: Temp Pulse Pulse Pulse Resp BP BP 09/25/23 14:50 66 18 139/55 L 09/25/23 14:40 36.3 C L 65 15 145/54 H 09/25/23 11:37 36.9 C 63 18 160/55 H 09/25/23 07:46 77 09/25/23 07:45 36.5 C 77 18 163/62 H 09/25/23 03:15 36.5 C 71 18 158/57 H 09/25/23 00:25 79 177/55 H 09/24/23 23:12 37.4 C 85 16 187/69 H 09/24/23 22:03 72 09/24/23 20:10 36.9 C 76 16 162/68 H 09/24/23 17:04 183/61 H 09/24/23 15:15 36.9 C 65 18 174/54 H Pulse Ox O2 Del Method O2 Flow Rate 09/25/23 14:50 100 Oxymask 10 09/25/23 14:40 99 Oxymask 15 09/25/23 11:37 93 Room Air 09/25/23 07:46 09/25/23 07:45 93 Room Air 09/25/23 03:15 90 Room Air 09/25/23 00:25 09/24/23 23:12 92 Room Air 09/24/23 22:03 09/24/23 20:10 92 Room Air 09/24/23 17:04 09/24/23 15:15 95 Room Air Pain Intensity Left Hip: Pain Intensity: 5 Transfer of Care Handoff Completed per policy Notes Mental Status: alert / awake / arousable Patient Amnestic to Procedure: Yes Nausea / Vomiting: adequately controlled Pain: adequately controlled Airway Patency, RR, SpO2: stable & adequate BP & HR: stable & adequate Hydration State: stable & adequate Neuraxial Anesthesia: was administered and sensory block is resolving Anesthetic Complications: no major complications apparent and Pt Satisfied with anesthetic care
--- NOTE | 2023-09-25 15:02 | Operative Report ---
PG Post Operative Report Pre & Post Diagnosis Operation Date: 09/25/23 12:30 Pre-Op Diagnosis: Avascular necrosis of bone of left hip Post-Op Diagnosis: Avascular necrosis of bone of left hip with chronic left hip abductor avulsion I identified the patient and participated in the time-out.: Yes Procedure Operation Date: 09/25/23 12:30 Actual Procedures p Left Total Hip Arthroplasty, Left Hip Abductor Repair(Left) - Eliazar Singh MD Surgeon Eliazar Singh MD Director Experimental Medicine Leandro Washington PA-C Estimated Blood Loss 200 Findings Consistent with Post-Op Diagnosis Patient had large hip joint effusion. Diffuse osteopenia. She had slight collapse of the femoral head with some slight subchondral fracture. She had a chronic left hip abductor avulsion Specimens Left femoral head sent for pathology. Anesthesia Type General Complications none Disposition Accompanied Patient To Recovery: No Indications Patient is a 72-year-old female is had a several month history of markedly increased left hip pain discomfort describes gotten worse over time. She was ordered using a cane and walker to get around. Pain became incapacitated and she was admitted the hospital for left hip pain. As she did have an MRI at [facility] which showed pretty extensive avascular necrosis with collapse of the femoral head. Patient was strongly desiring surgical management while in the hospital. Of note, this patient has an apparent nickel allergy so we made sure to use titanium implants and a titanium cable. We are not able to use a cemented stem due to these concerns. Description of Procedure Operative implants consist of: 1. Biomet G7 size 48 mm acetabular shell. 2. 6.5 cancellous acetabular screws 1 at 35 mm length and 130 mm length. 3. [place] hole feed in worker. 4. Highly cross-linked polyethylene liner with a 48 mm outer diameter and 32 mm inner diameter. 5. DePuy Karaya I size 12 short neck 125 degree angle femoral stem. 6. +1/32 mm ceramic articular ball. 7. 2.0 Anette-[place] 5 vatallium cable 8. Biomet juggernaut suture anchors x 1. The patient was taken the operating, identified, placed on the operating table in the supine position. All contact areas were properly padded. IV antibiotics tried by anesthesia team. A general anesthetic was implemented. The patient was then placed in the right lateral decubitus position. Axillary roll was pl aced. Stulberg hip positioner was used for positioning. The left hip and leg were then prepped with Hibiclens and then prepped with ChloraPrep and draped in usual sterile fashion. A posterolateral puncture left hip was then performed through a curvilinear incision centered over the greater trochanter. Sharp dissection Through subcutaneous tissue down to the IT band gluteal fascia. The IT band gluteal fascia incised longitudinally in line with skin incision. The underlying greater bursa was excised. Her hip abductors were completely avulsed and chronically. The posterior capsule and external rotators were then removed from the posterior aspect of the hip as a single layer. Great care was taken throughout the procedure to protect the sciatic nerve at all times. The hip was internally rotated and dislocated. Femoral neck osteotomy cut was made with a Final Cut about 15 mm above the lesser trochanter. Femoral head was removed and sent for pathology. The femur was retracted anteriorly. Of note she did have a very large hip joint effusion. Attention drawn the acetabulum. The acetabular labrum was excised. The pulmonary fat was excised. Sequential reaming the acetabular was then performed again with a size 43 and progressing up to 47. I reamed a little bit with a 48 reamer and then placed a 48 mm Biomet G7 acetabular shell in about 40 degrees lateral opening and 20 to 25 degrees of anteversion. It was fixed with 2 six 6.5 screws. Trial liner was placed. Attention drawn the femur. The proximal femur was cleaned up. I then placed a single Dall-Miles cable to prevent any fracture risk of fracture propagation as her bone was fairly osteopenic. We were kindly stuck with using a uncemented stem due to her right nickel allergy. A cable was placed. I then entered the femur with a [employer] cutter followed by the canal finder. We then broached beginning with size 8 and progressing up to 12. Got excellent fitted to 12. We trialed the hip and the standard neck was just too much offset. We ended up using a short neck. We used a +1 articular ball. It was fully stable full extension and external rotation flexion to 90 degrees internal Tatian over [address] I elected to place these implants. All trial implants were removed. [place] foundation assistant was placed. Highly cross- linked polyethylene liner was placed. A size 12 KLA femoral stem was impacted i n position. A +1/32 mm ceramic articular ball was placed. Hip was located and once again found to be stable. Attention drawn toward closing. The wound was irrigated coconuts pulsatile lavage solution. I did inject locally with 60 cc of half percent Marcaine with epinephrine. The hip abductors were then repaired with a single juggernaut anchor. I placed 1's a set of sutures anteriorly 1 superiorly. I did discuss the trochanter up to try and get some healing. The IT band gluteal fascia then closed with #1 PDS suture running fashion through the subcutaneous tissues then closed with 2 layers of deep layer #2 Vicryl suture in a buried interrupted fashion the subcutaneous tissues with 2-0 Dexon suture in a buried interrupted fashion. The skin was closed skin simeon. A Prevena VAC dressing was applied due to thick soft tissue envelope. The patient was then brought out of general esthesia and transferred to the recovery room in stable condition. Patient tolerated procedure well and no complications. Leandro Washington, my physician licensed occupational therapy assistant, was present for the entire procedure. His assistance was essential and required for appropriate patient positioning, prepping and draping, surgical exposure, performing the technical details of the operation, placement the implants, closure of the wound, and placement of the sterile bandage. I attest to the content of the Intraoperative Record and any orders documented therein. Any exceptions are noted below.
[2023-09-25] MEDS: fentaNYL citrate PF 100 MCG/2 ML VIAL IV PRN (15:05)
--- NOTE | 2023-09-25 15:47 | XRay Report ---
XR hip 1V LT w pelvis HISTORY: 72 years-old Female IN PACU - Post Surgical left hip arthroplasty COMPARISON: 09/22/2023 TECHNIQUE: AP view the pelvis with crosstable lateral view the left hip FINDINGS: Mild to moderate right hip osteoarthritis. Left hip arthroplasty demonstrates satisfactory alignment with proximal femoral cerclage wire. Expected postoperative soft tissue swelling the deep tissue air and lateral skin simeon. IMPRESSION: Left hip arthroplasty with expected postoperative changes. ACT 112: Negative or not required by law. The above report was generated using voice recognition software. It may contain grammatical, syntax o r spelling errors. Electronically signed by: Rudi Vanegas M.D. 09/25/2023 3:46 PM
[2023-09-25] MEDS ORDERED: MAGNESIUM HYDROXIDE SUSP 30 ML UDC PO PRN (16:03)
[2023-09-25] MEDS ORDERED: ALUMINUM/MAGNESIUM SUSP 30 ML UDC PO PRN (16:03)
[2023-09-25] MEDS ORDERED: bisacodyL 10 MG SUPP PR PRN (16:03)
[2023-09-25] MEDS ORDERED: HYDROmorphone INJ 0.5 MG/0.5 ML SYR IV PRN (16:03)
[2023-09-25] MEDS ORDERED: NALOXONE HCL 0.4 MG/1 ML VIAL/CARP IV PRN (16:03)
[2023-09-25] MEDS ORDERED: METOCLOPRAMIDE HCL INJ 5 MG/ML 2 ML VIAL IV PRN (16:03)
--- NOTE | 2023-09-25 16:27 | Hospitalist Progress Note ---
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 MR L hip:1. Left hip avascular necrosis with a likely subacute left tiny femoral head fracture and some subchondral collapse/loss of the normal sphericity. 2. Multifocal muscular and mixed age tendon injuries, as above. Small left hip effusion. Edema throughout the subcutaneous tissues as well as within the muscles. There are multifocal partial-thickness tendon tears involving the indirect head/origin of rectus femoris, gluteus medius and minimus, obturators internus, and vastus lateralis. This is likely related to acute on chronic trauma as there is some fatty atrophy. 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 dose until seen by ortho to determine plan NPO after midnight - will place on LR @ 00:00 x 1 L [place] -mild to mod pain; IV dilaudid severe pain bowel regimen ordered check vit D level in a.m. MRI done at [facility] - will need to have images pushed into [facility] PACS 09/24 Plan for surgical intervention tomorrow Continue pain medications including IV Ofirmev every 8 hours, as needed [place] and IV Dilaudid 09/25 for OR today Continue pain regimen HTN uncontrolled follows [facility] Nephro likely elevated 2/2 pain currently continue coreg, amlodipine, olmesartan, aldactone give labetolol 5mg IV x 1 now 09/24 Nephrology service consulted Losartan increased to 25 mg p.o. daily Spironolactone increased to 50 mg p.o. daily Carvedilol increased to 25 mg p.o. twice daily Monitor closely 09/25 Blood pressure improving PVD hx of EDIE s/p R CEA, SMA stenosis s/p stenting previously on ASA/Plavix switched to brilinta 2/2 subtherapuetic ASA/Plavix levels per neurology Hx of CVA/TIA not on statin therapy on Brilinta, but will hold for possible procedure -- Resume Brilinta as soon as possible once okay with orthopedic surgery service CKD Stage IV Atrophic R kidney follows Dr. Clark baseline cr 1.4-1.7 chronic, stable Anemia hgb stable at 11.2/34.2 likely chronic renal disease Creatinine 1.3 Nephrology service consulted Avoid nephrotoxic agents DVT ppx: Pending procedure Dispo: PT OT evaluation, may need acute rehab versus care home facility FULL CODE PCP: Karl Howe Admission and Anticipated Discharge Date Admission Date: September 22, 2023 Subjective Follow-up for avascular necrosis left hip, etc. Seen resting in bed, watching TV, comfortable States she feels okay overall Pain well-controlled No fevers or chills no chest pain, dyspnea, palpitations, dizziness No other new symptoms Review of Systems Review of Systems: all noted and negative except for above Physical Exam Physical Exam: General- oriented x 3, not in distress, speaks in sentences with no effort or accessory muscle use Eyes- anicteric Neck- no JVD Lungs- clear breath sounds bilaterally, no rales/wheezes Heart- normal rate, regular rhythm; no murmurs Abdomen- normal bowel sounds, nondistended, soft, nontender Extremities- no pretibial edema, no calf tenderness Neuro- alert, oriented x 3; no gross focal neurologic deficits Skin- warm & dry Results & Data Results & Data Vital Signs (Past 12 Hours) Vital Signs Temp Pulse Pulse Pulse Pulse Resp BP 09/25/23 16:15 61 16 09/25/23 16:03 36.4 C L 63 16 09/25/23 15:40 57 L 12 09/25/23 15:30 36.4 C L 59 L 12 09/25/23 15:20 65 18 09/25/23 15:10 61 14 09/25/23 15:00 67 16 09/25/23 14:50 66 18 09/25/23 14:40 36.3 C L 65 15 09/25/23 11:37 36.9 C 63 18 09/25/23 07:46 77 09/25/23 07:45 36.5 C 77 18 163/62 H BP Pulse Ox O2 Del Method O2 Flow Rate 09/25/23 16:15 155/56 H 95 Nasal Cannula 2 09/25/23 16:03 156/60 H 97 Nasal Cannula 2 09/25/23 15:40 127/71 98 Nasal Cannula 2 09/25/23 15:30 130/52 L 97 Nasal Cannula 2 09/25/23 15:20 124/50 L 94 Nasal Cannula 2 09/25/23 15:10 146/50 H 97 Oxymask 4 09/25/23 15:00 145/60 H 100 Oxymask 6 09/25/23 14:50 139/55 L 100 Oxymask 10 09/25/23 14:40 145/54 H 99 Oxymask 15 09/25/23 11:37 160/55 H 93 Room Air 09/25/23 07:46 09/25/23 07:45 93 Room Air all noted and reviewed including below (4) HTN (hypertension) Hypertension type: unspecified Qualified Code(s): I10 - Essential (primary) hypertension
[2023-09-25] MEDS: SODIUM CHLORIDE 0.9% 1,000 ML IV SCH (16:47)
[2023-09-25] MEDS: ASCORBIC ACID 500 MG TAB PO SCH (17:41)
[2023-09-25] MEDS: KETOROLAC TROMETHAMINE 15 MG/ML VIAL IV SCH (17:41)
[2023-09-25] MEDS: TRANEXAMIC ACID / 0.7% NACL 1,000 MG/100 ML BAG IV SCH (20:29)
[2023-09-25] MEDS: ceFAZolin 2000MG 2,000 MG/15 ML SYR IV SCH (20:30)
[2023-09-25] MEDS: traMADol HCL 50 MG TABLET PO PRN (20:30)
[2023-09-25] MEDS: DOCUSATE SODIUM 100 MG CAP PO SCH (20:38)
[2023-09-25] MEDS: SENNA 8.6 MG TAB PO SCH (20:38)
[2023-09-26 06:38] LABS: Basophils # (auto) 0.02 K/uL (0.00-0.20); Basophils % (auto) 0.3 %; Hematocrit (blood only) 27.3 % (37.0-47.0); Hemoglobin 8.8 g/dl (12.0-16.0); Immature Granulocytes # (auto) 0.04 K/uL (0.01-0.20); Immature Granulocytes % (auto) 0.5 %; Lymphocytes % (auto) 9.4 %; Mean Corpuscular Hgb Conc 32.2 g/dL (32.0-36.0); Mean Corpuscular Volume 105.4 fL (80.0-100.0); Mean Platelet Volume 10.9 fL (9.4-12.4); Monocytes % (auto) 9.4 %; Neutrophils # (auto) 5.96 K/uL (1.40-6.50); Neutrophils % (auto) 80.4 %; Platelet Count 200 K/uL (130-400); RDW Coefficient of Variation 13.7 % (11.5-14.5); RDW Standard Deviation 52.9 fL (36.4-46.3); Red Blood Count 2.59 M/uL (4.20-5.40); White Blood Count 7.42 K/ul (4.8-10.8)
[2023-09-26 07:28] LABS: Potassium 4.9 mmol/L (3.5-5.1)
[2023-09-26 07:29] LABS: Albumin Level 3.2 gm/dl (3.4-5.0); BUN Creatinine Ratio 26.9 (10-20); Calcium 8.8 mg/dl (8.6-10.3); Creatinine Clr Calc Pharmacy 33.3 ml/min; Est GFR (African American) 36.7 ml/min; Est GFR (Non-African American) 31.6 ml/min; Phosphorus 5.3 mg/dl (2.5-4.9)
[2023-09-26] MEDS: dexAMETHasone 4 MG TAB PO SCH (08:16)
[2023-09-26] MEDS: MULTIVITAMIN TAB PO SCH (08:17)
--- NOTE | 2023-09-26 08:34 | Surgery Progress Note ---
Date of Service September 26, 2023 Assessment & Plan (1) Status post left hip replacement: Plan: 72-year-old female with multiple medical comorbidities postop day 1 from a left uncemented hip replacement done for AVN and subchondral fracture. She got multiple medical comorbidities with chronic anemia. She is doing well this morning. Pain is controlled. Hips located. She is neurologically intact. He is anemic but without symptoms. Plan: 1. DVT prophylaxis. Would recommend thigh-high teds, SCDs, and she can go back on her Brilinta. Recommend a single baby aspirin once a day in addition. 2. PT/OT. She can fully weight-bear as tolerated. Needs to obey hip precautions. 3. Pain control seems to be going okay with current pain regimen. 4. Medical management as per the medicine service. 5. Disposition she is hoping to go to rehab. She is orthopedically okay for rehab discharge anytime medically stable. I need to see her back 2 to 3 weeks out from surgery date. Any orthopedic questions can be directed at [phone] (2) Avascular necrosis of bone of left hip: (3) Anemia: Admission and Anticipated Discharge Date Admission Date: September 22, 2023 Subjective 72-year-old female postop day 1 from a left uncemented total hip replacement done for avascular necrosis. She is doing pretty well this morning. Pain seems to be significantly improved. No new complaints. Physical Exam Physical Exam: Physical exam shows a pleasant elderly female. Lying bed looks pretty comfortable. Examination left leg and hip reveals the Prevena VAC dressing be in place. Thigh is soft and supple. Leg lengths are equal. She is neurologically intact. She can dorsiflex and plantarflex her foot appropriately. Results & Data Vital Signs (Past 12 Hours) Vital Signs Temp Pulse Pulse Resp BP Pulse Ox O2 Del Method 09/26/23 07:49 36.6 C 67 18 163/56 H 95 Nasal Cannula 09/26/23 03:55 36.6 C 62 18 130/58 L 94 Room Air 09/25/23 23:11 36.5 C 65 18 132/55 L 91 Room Air 09/25/23 21:58 63 O2 Flow Rate 09/26/23 07:49 2 09/26/23 03:55 09/25/23 23:11 09/25/23 21:58 Laboratory Results Hemoglobin is 8.8. Hematocrit 27.3. PG Care Time/CCT Total # of Minutes Spent Total Time Spent with Patient: Total time spent is greater than 50% in coordination of care (as documented) at patient's floor/unit and/or counseling patient: Coding Level of Care Code 61316 Post Operative Follow-Up Diagnoses Status post left hip replacement Z96.642 Avascular necrosis of bone of left hip M87.052 Anemia D64.9
--- NOTE | 2023-09-26 16:49 | Hospitalist Progress Note ---
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 MR L hip:1. Left hip avascular necrosis with a likely subacute left tiny femoral head fracture and some subchondral collapse/loss of the normal sphericity. 2. Multifocal muscular and mixed age tendon injuries, as above. Small left hip effusion. Edema throughout the subcutaneous tissues as well as within the muscles. There are multifocal partial-thickness tendon tears involving the indirect head/origin of rectus femoris, gluteus medius and minimus, obturators internus, and vastus lateralis. This is likely related to acute on chronic trauma as there is some fatty atrophy. 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 dose until seen by ortho to determine plan NPO after midnight - will place on LR @ 00:00 x 1 L [place] -mild to mod pain; IV dilaudid severe pain bowel regimen ordered check vit D level in a.m. MRI done at [facility] - will need to have images pushed into [facility] P[facility] 09/24 Plan for surgical intervention tomorrow Continue pain medications including IV Ofirmev every 8 hours, as needed [place] and IV Dilaudid 09/25 for OR today Continue pain regimen 09/26 Stable overall Pain well-controlled Blood pressure improving Resume Brilinta HTN uncontrolled follows [facility] Nephro likely elevated 2/2 pain currently continue coreg, amlodipine, olmesartan, aldactone give labetolol 5mg IV x 1 now 09/24 Nephrology service consulted Losartan increased to 25 mg p.o. daily Spironolactone increased to 50 mg p.o. daily Carvedilol increased to 25 mg p.o. twice daily Monitor closely 09/25 Blood pressure improving 09/26 Blood pressure improved PVD hx of EDIE s/p R CEA, SMA stenosis s/p stenting previously on ASA/Plavix switched to brilinta / subtherapuetic ASA/Plavix levels per neurology Hx of CVA/TIA not on statin therapy on Brilinta, but will hold for possible procedure -- Resume Brilinta as soon as possible once okay with orthopedic surgery service CKD Stage IV Atrophic R kidney follows Dr. Clark baseline cr 1.4-1.7 chronic, stable Anemia hgb stable at 11.2/34.2 likely chronic renal disease Creatinine 1.3 Nephrology service consulted Avoid nephrotoxic agents DVT ppx: Brilinta resumed, Add aspirin per Ortho Dispo: PT OT evaluation, may need acute rehab versus shelter facility FULL CODE PCP: Karl Howe Admission and Anticipated Discharge Date Admission Date: September 22, 2023 Subjective Follow-up for left hip avascular necrosis, etc. Seen sitting up in bedside chair, comfortable, not in distress States she feels fine overall Pain well-controlled no chest pain, dyspnea, palpitations, dizziness No other new symptoms Review of Systems Review of Systems: all noted and negative except for above Physical Exam Physical Exam: General- oriented x 3, not in distress, speaks in sentences with no effort or accessory muscle use Eyes- anicteric Neck- no JVD Lungs- clear breath sounds bilaterally, no crackles or wheezing Heart- normal rate, regular rhythm; no murmurs Abdomen- normal bowel sounds, nondistended, soft, no tenderness Extremities- no pretibial edema, no calf tenderness Neuro- alert, oriented x 3; no gross focal neurologic deficits Skin- warm & dry Results & Data Results & Data Vital Signs (Past 12 Hours) Vital Signs Temp Pulse Pulse Resp BP Pulse Ox O2 Del Method 09/26/23 16:38 36.8 C 60 16 146/55 H 94 Room Air 02/10/24 12:15 36.9 C 54 L 18 124/47 L 98 Nasal Cannula 09/26/23 12:01 95 09/26/23 10:45 65 09/26/23 08:00 Nasal Cannula 09/26/23 07:49 36.6 C 67 18 163/56 H 95 Nasal Cannula O2 Flow Rate 09/26/23 16:38 09/26/23 12:15 2 09/26/23 12:01 09/26/23 10:45 09/26/23 08:00 2 09/26/23 07:49 2 all noted and reviewed including below (4) HTN (hypertension) Hypertension type: unspecified Qualified Code(s): I10 - Essential (primary) hypertension
[2023-09-26] MEDS: TICAGRELOR 90 MG TAB PO SCH (20:27)
[2023-09-27 06:11] LABS: Basophils # (auto) 0.01 K/uL (0.00-0.20); Basophils % (auto) 0.1 %; Hematocrit (blood only) 25.2 % (37.0-47.0); Hemoglobin 8.3 g/dl (12.0-16.0); Immature Granulocytes # (auto) 0.07 K/uL (0.01-0.20); Immature Granulocytes % (auto) 0.8 %; Lymphocytes # (auto) 0.71 K/uL (1.20-3.40); Lymphocytes % (auto) 8.3 %; Mean Corpuscular Hemoglobin 33.9 pg (25.0-34.0); Mean Corpuscular Hgb Conc 32.9 g/dL (32.0-36.0); Mean Corpuscular Volume 102.9 fL (80.0-100.0); Monocytes # (auto) 0.83 K/uL (0.11-0.59); Monocytes % (auto) 9.7 %; Neutrophils % (auto) 81.1 %; Platelet Count 180 K/uL (130-400); RDW Coefficient of Variation 13.6 % (11.5-14.5); RDW Standard Deviation 51.4 fL (36.4-46.3); Red Blood Count 2.45 M/uL (4.20-5.40); White Blood Count 8.52 K/ul (4.8-10.8)
[2023-09-27 06:16] LABS: BUN Creatinine Ratio 30.1 (10-20); Calcium 8.9 mg/dl (8.6-10.3); Creatinine Clr Calc Pharmacy 27.6 ml/min; Est GFR (African American) 29.2 ml/min; Est GFR (Non-African American) 25.2 ml/min; Potassium 4.9 mmol/L (3.5-5.1)
--- NOTE | 2023-09-27 07:49 | Surgery Progress Note ---
Date of Service September 27, 2023 Assessment & Plan (1) Status post left hip replacement: Plan: 72-year-old female postop day 2 for left hip replacement done for avascular necrosis. Orthopedically she is doing well. She is anemic but asymptomatic. Her pain control. Hips located. Creatinine is a little bit elevated and will stop the Toradol. Plan: 1. DVT prophylaxis including thigh-high teds, SCDs, and back on her Brilinta. 2. PT/OT. She can fully weight-bear as tolerated. Needs to obey hip precautions. 3. Pain control doing okay with current pain regimen. 4. Elevated creatinine. When to stop and hold her Toradol. Follow renal function. 5. Medical management as per the medicine service. 6. Disposition she is orthopedically okay for discharge anytime medically stable. I need to see her back 2 weeks out from surgery date. Any orthopedic questions can direct me [phone]. Admission and Anticipated Discharge Date Admission Date: September 22, 2023 Subjective 72-year-old female postop day 2 from a left total hip replacement done for apparent avascular necrosis. She is doing pretty well. Pain seems to be controlled. No new complaints. Denies any chest pain or shortness of breath. Not feeling dizzy or lightheaded. Physical Exam Physical Exam: Physical examination was a pleasant elderly female patient lying bed looks comfortable this morning. I did wake her. Examination left hip reveals leg to be well aligned. Prevena VAC dressing is in place. Thigh is soft and supple. She is neurologically intact. She can dorsiflex and plantarflex her foot appropriately. Results & Data Vital Signs (Past 12 Hours) Vital Signs Temp Pulse Pulse Resp BP Pulse Ox O2 Del Method 09/27/23 06:48 62 09/27/23 06:06 Room Air 09/26/23 22:31 37 C 66 18 140/60 91 Room Air 09/26/23 21:57 71 Laboratory Results Hemoglobin is 8.3. Hematocrit is 25.2. Creatinine is a bit elevated at 1.93 PG Care Time/CCT Total # of Minutes Spent Total Time Spent with Patient: Total time spent is greater than 50% in coordination of care (as documented) at patient's floor/unit and/or counseling patient: Coding Level of Care Code 60585 Post Operative Follow-Up Diagnoses Status post left hip replacement Z96.642
--- NOTE | 2023-09-27 12:14 | Hospitalist Progress Note ---
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 MR L hip:1. Left hip avascular necrosis with a likely subacute left tiny femoral head fracture and some subchondral collapse/loss of the normal sphericity. 2. Multifocal muscular and mixed age tendon injuries, as above. Small left hip effusion. Edema throughout the subcutaneous tissues as well as within the muscles. There are multifocal partial-thickness tendon tears involving the indirect head/origin of rectus femoris, gluteus medius and minimus, obturators internus, and vastus lateralis. This is likely related to acute on chronic trauma as there is some fatty atrophy. L hip pain L hip avascular necrosis Closed fx of L femur head Multifocal muscular and mixed age tendon injuries admit to med/tele 2/ blood pressure management consult orthopedics - pt previously has seen [facility] ALB[facility]O DOR[facility] will consult Dr. Teran who is donor services specialist obtain CXR, ECG for pre op clearance - pt admits to being able to ambulate 1 flight of steps w/o CP, SOB prior to injury pt on brilinta - will hold a.m. dose until seen by ortho to determine plan NPO after midnight - will place on LR @ 00:00 x 1 L [place] -mild to mod pain; IV dilaudid severe pain bowel regimen ordered check vit D level in a.m. MRI done at [facility] - will need to have images pushed into [facility] PACS 09/24 Plan for surgical intervention tomorrow Continue pain medications including IV Ofirmev every 8 hours, as needed [place] and IV Dilaudid 09/25 for OR today Continue pain regimen 09/26 Stable overall Pain well-controlled Blood pressure improving Resume Brilinta 09/27 Remained stable Tolerating Brilinta Continue to monitor blood pressure Continue PT and OT evaluation Will need acute rehab HTN uncontrolled follows [facility] Nephro likely elevated / pain currently continue coreg, amlodipine, olmesartan, aldactone give labetolol 5mg IV x 1 now 09/24 Nephrology service consulted Losartan increased to 25 mg p.o. daily Spironolactone increased to 50 mg p.o. daily Carvedilol increased to 25 mg p.o. twice daily Monitor closely 09/25 Blood pressure improving 09/27 Blood pressure improved PVD hx of EDIE s/p R CEA, SMA stenosis s/p stenting previously on ASA/Plavix switched to brilinta 09/18 subtherapuetic ASA/Plavix levels per neurology Hx of CVA/TIA not on statin therapy on Brilinta, but will hold for possible procedure -- Resume Brilinta as soon as possible once okay with orthopedic surgery service CKD Stage IV Atrophic R kidney follows Dr. Clark baseline cr 1.4-1.7 chronic, stable Anemia hgb stable at 11.2/34.2 likely chronic renal disease Creatinine 1.9 Hold spironolactone Start IV fluid Nephrology service consulted Avoid nephrotoxic agents DVT ppx: Brilinta resumed, Add aspirin per Ortho Dispo: PT OT evaluation, may need acute rehab versus [facility] facility FULL CODE PCP: Karl Howe Admission and Anticipated Discharge Date Admission Date: September 22, 2023 Subjective Follow-up for left hip avascular necrosis, etc. Seen resting in bed, sitting up, in good spirits States she feels okay overall Left hip pain well-controlled no chest pain, dyspnea, palpitations, dizziness Patient participated with PT and OT, tolerating well No other new symptoms Review of Systems Review of Systems: all noted and negative except for above Physical Exam Physical Exam: General- oriented x 3, not in distress, speaks in sentences with no effort or accessory muscle use Eyes- anicteric Neck- no JVD Lungs- clear breath sounds bilaterally, no rales/wheezes Heart- normal rate, regular rhythm; no murmurs Abdomen- normal bowel sounds, nondistended, soft, nontender Extremities- no pretibial edema, no calf tenderness Left hip: Wound VAC in place No hematoma, has mild edema Neuro- alert, oriented x 3; no gross focal neurologic deficits Skin- warm & dry Results & Data Results & Data Vital Signs (Past 12 Hours) Vital Signs Temp Pulse Pulse Resp BP Pulse Ox O2 Del Method 09/27/23 11:47 36.7 C 56 L 18 147/52 H 97 Room Air 09/27/23 08:00 Room Air 09/27/23 07:46 37.0 C 68 18 177/54 H 95 Room Air 09/27/23 06:48 62 09/27/23 06:06 Room Air all noted and reviewed including below (4) HTN (hypertension) Hypertension type: unspecified Qualified Code(s): I10 - Essential (primary) hypertension
[2023-09-27] MEDS: SODIUM CHLORIDE 0.9% 1,000 ML IV SCH (12:29)
[2023-09-28 07:01] LABS: Basophils # (auto) 0.01 K/uL (0.00-0.20); Basophils % (auto) 0.1 %; Eosinophils # (auto) 0.02 K/uL (0.00-0.50); Eosinophils % (auto) 0.3 %; Hematocrit (blood only) 26.1 % (37.0-47.0); Hemoglobin 8.4 g/dl (12.0-16.0); Immature Granulocytes # (auto) 0.06 K/uL (0.01-0.20); Immature Granulocytes % (auto) 0.9 %; Lymphocytes # (auto) 1.38 K/uL (1.20-3.40); Lymphocytes % (auto) 20.3 %; Mean Corpuscular Hemoglobin 32.9 pg (25.0-34.0); Mean Corpuscular Hgb Conc 32.2 g/dL (32.0-36.0); Mean Corpuscular Volume 102.4 fL (80.0-100.0); Mean Platelet Volume 11.6 fL (9.4-12.4); Monocytes # (auto) 0.91 K/uL (0.11-0.59); Monocytes % (auto) 13.4 %; Neutrophils # (auto) 4.43 K/uL (1.40-6.50); Platelet Count 182 K/uL (130-400); RDW Coefficient of Variation 14.1 % (11.5-14.5); RDW Standard Deviation 52.2 fL (36.4-46.3); Red Blood Count 2.55 M/uL (4.20-5.40); White Blood Count 6.81 K/ul (4.8-10.8)
[2023-09-28 07:22] LABS: BUN Creatinine Ratio 36.8 (10-20); Calcium 8.7 mg/dl (8.6-10.3); Creatinine Clr Calc Pharmacy 31.1 ml/min; Est GFR (African American) 33.8 ml/min; Est GFR (Non-African American) 29.2 ml/min; Potassium 4.5 mmol/L (3.5-5.1)
--- NOTE | 2023-09-28 17:43 | Hospitalist Progress Note ---
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 MR L hip:1. Left hip avascular necrosis with a likely subacute left tiny femoral head fracture and some subchondral collapse/loss of the normal sphericity. 2. Multifocal muscular and mixed age tendon injuries, as above. Small left hip effusion. Edema throughout the subcutaneous tissues as well as within the muscles. There are multifocal partial-thickness tendon tears involving the indirect head/origin of rectus femoris, gluteus medius and minimus, obturators internus, and vastus lateralis. This is likely related to acute on chronic trauma as there is some fatty atrophy. L hip pain L hip avascular necrosis Closed fx of L femur head Multifocal muscular and mixed age tendon injuries admit to med/tele 2/ blood pressure management consult orthopedics - pt previously has seen [facility]OR[facility] will consult Dr. Teran who is applications engineering manager obtain CXR, ECG for pre op clearance - pt admits to being able to ambulate 1 flight of steps w/o CP, SOB prior to injury pt on brilinta - will hold a.m. dose until seen by ortho to determine plan NPO after midnight - will place on LR @ 00:00 x 1 L [place] -mild to mod pain; IV dilaudid severe pain bowel regimen ordered check vit D level in a.m. MRI done at [facility] - will need to have images pushed into [facility] PACS 09/24 Plan for surgical intervention tomorrow Continue pain medications including IV Ofirmev every 8 hours, as needed [place] and IV Dilaudid 09/25 for OR today Continue pain regimen 09/26 Stable overall Pain well-controlled Blood pressure improving Resume Brilinta 09/27 Remained stable Tolerating Brilinta Continue to monitor blood pressure Continue PT and OT evaluation Will need acute rehab 09/28 Stable Continue present medications HTN uncontrolled follows [facility] Nephro likely elevated 09/18 pain currently continue coreg, amlodipine, olmesartan, aldactone give labetolol 5mg IV x 1 now 09/24 Nephrology service consulted Losartan increased to 25 mg p.o. daily Spironolactone increased to 50 mg p.o. daily Carvedilol increased to 25 mg p.o. twice daily Monitor closely 09/25 Blood pressure improving 09/27 Blood pressure improved 09/28 Spironolactone on hold in light of creatinine increased Creatinine trending down DC IV fluids Likely resume spironolactone tomorrow PVD hx of EDIE s/p R CEA, SMA stenosis s/p stenting previously on ASA/Plavix switched to brilinta 09/18 subtherapuetic ASA/Plavix levels per neurology Hx of CVA/TIA not on statin therapy on Brilinta, but will hold for possible procedure -- Resume Brilinta as soon as possible once okay with orthopedic surgery service CKD Stage IV Atrophic R kidney follows Dr. Clark baseline cr 1.4-1.7 chronic, stable Anemia hgb stable at 11.2/34.2 likely chronic renal disease Nephrology service consulted Avoid nephrotoxic agents DVT ppx: Brilinta resumed, Add aspirin per Ortho Dispo: PT OT evaluation, may need acute rehab versus assisted facility FULL CODE PCP: Karl Howe Admission and Anticipated Discharge Date Admission Date: September 22, 2023 Subjective Follow-up for left hip avascular necrosis, etc. Resting in chair, comfortable, but spirits States she feels fine overall Pain well-controlled no chest pain, dyspnea, palpitations, dizziness No other new symptoms Review of Systems Review of Systems: all noted and negative except for above Physical Exam Physical Exam: General- oriented x 3, not in distress, speaks in sentences with no effort or accessory muscle use Eyes- anicteric Neck- no JVD Lungs- clear breath sounds bilaterally, no rales/wheezes Heart- normal rate, regular rhythm; no murmurs Abdomen- normal bowel sounds, nondistended, soft, nontender Extremities- no pretibial edema, no calf tenderness Left thigh: Wound VAC in place Neuro- alert, oriented x 3; no gross focal neurologic deficits Skin- warm & dry Results & Data Results & Data Vital Signs (Past 12 Hours) Vital Signs Temp Pulse Pulse Resp BP Pulse Ox O2 Del Method 09/28/23 16:30 53 L 09/28/23 11:19 36.6 C 50 L 16 170/65 H 96 Room Air 09/28/23 07:48 36.7 C 103 H 16 182/63 H 98 Room Air 09/28/23 07:29 66 all noted and reviewed including below (4) HTN (hypertension) Hypertension type: unspecified Qualified Code(s): I10 - Essential (primary) hypertension
[2023-09-29 07:02] LABS: Basophils # (auto) 0.04 K/uL (0.00-0.20); Basophils % (auto) 0.5 %; Eosinophils # (auto) 0.19 K/uL (0.00-0.50); Eosinophils % (auto) 2.6 %; Hematocrit (blood only) 26.7 % (37.0-47.0); Hemoglobin 8.8 g/dl (12.0-16.0); Immature Granulocytes # (auto) 0.07 K/uL (0.01-0.20); Lymphocytes # (auto) 2.22 K/uL (1.20-3.40); Lymphocytes % (auto) 30.2 %; Mean Corpuscular Hemoglobin 33.2 pg (25.0-34.0); Mean Corpuscular Volume 100.8 fL (80.0-100.0); Mean Platelet Volume 11.6 fL (9.4-12.4); Monocytes # (auto) 1.01 K/uL (0.11-0.59); Monocytes % (auto) 13.7 %; Neutrophils # (auto) 3.83 K/uL (1.40-6.50); Platelet Count 218 K/uL (130-400); RDW Coefficient of Variation 13.9 % (11.5-14.5); RDW Standard Deviation 51.4 fL (36.4-46.3); Red Blood Count 2.65 M/uL (4.20-5.40); White Blood Count 7.36 K/ul (4.8-10.8)
[2023-09-29 08:46] LABS: Calcium 8.9 mg/dl (8.6-10.3); Potassium 4.4 mmol/L (3.5-5.1)
[2023-09-29 08:51] LABS: BUN Creatinine Ratio 38.3 (10-20); Est GFR (African American) 45.8 ml/min; Est GFR (Non-African American) 39.6 ml/min
--- NOTE | 2023-09-29 12:13 | Hospitalist Progress Note ---
Date of Service September 29, 2023 Assessment & Plan (1) Left hip pain: (2) Avascular necrosis of bone of left hip: (3) Closed fracture of head of left femur: (4) HTN (hypertension): (5) Hyperlipidemia: (6) PVD (peripheral vascular disease): (7) CKD (chronic kidney disease) stage 4, GFR 15-29 ml/min: Plan Per admitting service notes with addendum: This is a 72-year-old female who has a significant past medical history of HTN, HLD, PVD with history of carotid stenosis status post right CEA, 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 MR L hip:1. Left hip avascular necrosis with a likely subacute left tiny femoral head fracture and some subchondral collapse/loss of the normal sphericity. 2. Multifocal muscular and mixed age tendon injuries, as above. Small left hip effusion. Edema throughout the subcutaneous tissues as well as within the muscles. There are multifocal partial-thickness tendon tears involving the indirect head/origin of rectus femoris, gluteus medius and minimus, obturators internus, and vastus lateralis. This is likely related to acute on chronic trauma as there is some fatty atrophy. L hip pain L hip avascular necrosis Closed fx of L femur head Multifocal muscular and mixed age tendon injuries : Status post left total hip arthroplasty, left hip abductor repair by Dr. Eliazar Singh Stable overall after surgery Pain well-controlled Usual Brilinta resumed Management of blood pressure as per below HTN CKD stage III Atrophic right kidney Nephrology service consulted Losartan increased to 25 mg p.o. daily Spironolactone increased to 50 mg p.o. daily Carvedilol increased to 25 mg p.o. twice daily Creatinine was rising, spironolactone held for 2 days Creatinine back to baseline 1.3 Resume spironolactone today Will discuss with nephrology service regarding persistent elevation of blood pressure PVD hx of EDIE s/p R CEA, SMA stenosis s/p stenting previously on ASA/Plavix switched to brilinta 2/2 subtherapuetic ASA/Plavix levels per neurology Hx of CVA/TIA not on statin therapy Brilinta resumed after surgery CKD Stage III Atrophic R kidney follows Dr. Clark baseline cr 1.4-1.7 Currently at baseline Anemia hgb stable at 11.2/34.2 likely chronic renal disease Nephrology service consulted Avoid nephrotoxic agents DVT ppx: Brilinta resumed Dispo: PT OT evaluation, awaiting acceptance to acute rehab FULL CODE PCP: Karl Howe Admission and Anticipated Discharge Date Admission Date: September 22, 2023 Subjective Follow-up for avascular necrosis of the left hip, status post total hip arthroplasty, left hip abductor repair, etc. Seen resting in bedside chair, comfortable, not in distress States she feels fine overall Left hip pain is well-controlled no chest pain, dyspnea, palpitations, dizziness Tolerating PT well No other new symptoms Review of Systems Review of Systems: all noted and negative except for above Physical Exam Physical Exam: General- oriented x 3, not in distress, speaks in sentences with no effort or accessory muscle use Eyes- anicteric Neck- no JVD Lungs- clear breath sounds bilaterally, no rales/wheezes Heart- normal rate, regular rhythm; no murmurs Abdomen- normal bowel sounds, nondistended, soft, nontender Extremities- no pretibial edema, no calf tenderness Left hip-wound VAC in place No hematoma, bleeding, discharge Neuro- alert, oriented x 3; no gross focal neurologic deficits Skin- warm & dry Results & Data Results & Data Vital Signs (Past 12 Hours) Vital Signs Temp Pulse Pulse Resp BP Pulse Ox O2 Del Method 09/29/23 11:45 36.7 C 55 L 16 179/55 H 97 Room Air 09/29/23 10:28 63 09/29/23 08:01 36.4 C L 61 16 190/61 H 96 Room Air 09/29/23 04:55 184/63 H 09/29/23 03:26 36.7 C 58 L 16 183/64 H 95 Room Air 09/29/23 01:10 56 L all noted and reviewed including below (4) HTN (hypertension) Hypertension type: unspecified Qualified Code(s): I10 - Essential (primary) hypertension
--- NOTE | 2023-09-29 13:23 | Nephrology Progress Note ---
Date of Service September 29, 2023 Assessment & Plan (1) HTN (hypertension): Plan: Elevated but asymptomatic. Continue amlodipine 10 mg daily, carvedilol 25 mg twice daily, losartan 25 mg daily. Spironolactone 50 mg daily restarted today. Tolerating current therapy well. Volume status acceptable. Low sodium diet. Repeat metabolic profile tomorrow. (2) CKD (chronic kidney disease) stage 4, GFR 15-29 ml/min: Plan: Chronically atrophic right kidney. b/l Renal artery stenosis. CKD IIIb A3 (baseline creat 1.5 mg/dL, PCR 0.3). Kidney function stable. Recent post-op LUCAS resolved. Prospective monitoring. Medications currently appropriately dosed for kidney function. (3) Avascular necrosis of bone of left hip: Plan: s/p Left VERN and L hip abductor repair by Eliazar Singh MD - 09/25/23. (4) Renal artery stenosis: Plan: No indication for intervention at this time. Continue medical management for blood pressure. Kidney function stable. Admission and Anticipated Discharge Date Admission Date: September 22, [address] Harkins asked for repeat nephrology evaluation today due to elevated BP readings. Radha was out of bed with therapy this afternoon. She is not experiencing symptomatic accelerated hypertension. Creatinine had increased post-operatively and spironolactone was held for 2 days. Records indicate BP increasing when the medication was stopped. The medication was restarted this AM. Radha denies fluid retention or edema. Review of Systems Review of Systems: All systems reviewed & are unremarkable except as noted in HPI & below Musculoskeletal: + back pain, + joint pain and + stiffnes s Physical Exam Constitutional: well developed; no acute distress Eyes: no scleral abnormality and no corneal abnormality ENMT: Mouth: no oral mucosal abnormality and oral mucous membranes not dry Neck: normal visual inspection and trachea midline Respiratory: normal respiratory effort Auscultation: lungs clear to auscultation bilaterally Cardiovascular: Rate/Rhythm: regular rate Heart Sounds: normal S1 and normal S2 Extremities: no edema Musculoskeletal: Extremities: no cyanosis and no clubbing Skin: normal turgor; no jaundice Neurologic: Motor/Sensory: no tremor and no asterixis Psychiatric: Orientation: alert and oriented x 3 Results & Data Vital Signs (Past 12 Hours) Vital Signs Temp Pulse Pulse Resp BP Pulse Ox O2 Del Method 09/29/23 11:45 36.7 C 55 L 16 179/55 H 97 Room Air 09/29/23 10:28 63 09/29/23 08:01 36.4 C L 61 16 190/61 H 96 Room Air 09/29/23 04:55 184/63 H 09/29/23 03:26 36.7 C 58 L 16 183/64 H 95 Room Air Laboratory Results Laboratory Results - last 24 hr 09/29/23 05:46 WBC 7.36 RBC 2.65 L Hgb 8.8 L Hct 26.7 L MCV 100.8 H MCH 33.2 MCHC 33.0 RDW Std Deviation 51.4 H RDW Coeff of Geeta 13.9 Plt Count 218 MPV 11.6 Immature Gran % (Auto) 1.0 Neut % (Auto) 52.0 Lymph % (Auto) 30.2 [place] % (Auto) 13.7 Eos % (Auto) 2.6 Baso % (Auto) 0.5 Neut # (Auto) 3.83 Lymph # (Auto) 2.22 [place] # (Auto) 1.01 H Eos # (Auto) 0.19 Baso # (Auto) 0.04 Immature Gran # (Auto) 0.07 Sodium 139 Potassium 4.4 Chloride 110 H Carbon Dioxide 21 Anion Gap 8 BUN 51 H Creatinine 1.33 H D Est Cr Clr Drug Dosing 40.0 Est GFR ( Amer) 45.8 Est GFR (Non-Af Amer) 39.6 BUN/Creatinine Ratio 38.3 H Glucose 96 Calcium 8.9 PG Care Time/CCT Total # of Minutes Spent Total Time Spent with Patient: Total time spent is greater than 50% in coordination of care (as documented) at patient's floor/unit and/or counseling patient: Coding Level of Care Code 16263 SUB INP/OBS CARE 3/50MIN Diagnoses HTN (hypertension) I10 Hypertension type: unspecified CKD (chronic kidney disease) stage 4, GFR 15-29 ml/min N18.4 Avascular necrosis of bone of left hip M87.052 Renal artery stenosis I70.1 (1) HTN (hypertension) Hypertension type: unspecified Qualified Code(s): I10 - Essential (primary) hypertension
[2023-09-30] MEDS: amLODIPine BESYLATE 5 MG TAB PO ONE (03:38)
[2023-09-30 08:25] LABS: Basophils # (auto) 0.03 K/uL (0.00-0.20); Basophils % (auto) 0.4 %; Eosinophils # (auto) 0.27 K/uL (0.00-0.50); Eosinophils % (auto) 3.5 %; Hematocrit (blood only) 29.7 % (37.0-47.0); Hemoglobin 9.6 g/dl (12.0-16.0); Immature Granulocytes # (auto) 0.08 K/uL (0.01-0.20); Lymphocytes # (auto) 1.47 K/uL (1.20-3.40); Lymphocytes % (auto) 18.9 %; Mean Corpuscular Hemoglobin 33.1 pg (25.0-34.0); Mean Corpuscular Hgb Conc 32.3 g/dL (32.0-36.0); Mean Corpuscular Volume 102.4 fL (80.0-100.0); Mean Platelet Volume 11.3 fL (9.4-12.4); Monocytes # (auto) 1.11 K/uL (0.11-0.59); Monocytes % (auto) 14.3 %; Neutrophils % (auto) 61.9 %; Platelet Count 262 K/uL (130-400); RDW Coefficient of Variation 14.2 % (11.5-14.5); RDW Standard Deviation 53.5 fL (36.4-46.3); White Blood Count 7.76 K/ul (4.8-10.8)
[2023-09-30 09:17] LABS: Calcium 9.3 mg/dl (8.6-10.3); Potassium 4.2 mmol/L (3.5-5.1)
[2023-09-30 09:23] LABS: BUN Creatinine Ratio 35.3 (10-20); Creatinine Clr Calc Pharmacy 46.2 ml/min; Est GFR (African American) 54.1 ml/min; Est GFR (Non-African American) 46.7 ml/min
--- NOTE | 2023-09-30 09:38 | Nephrology Progress Note ---
Date of Service September 30, 2023 Assessment & Plan (1) HTN (hypertension): Plan: Remains asymptomatic. Remains on amlodipine 10 mg daily, carvedilol 25 mg twice daily, losartan 25 mg daily, and spironolactone 50 mg daily (restarted yesterday). If BP remains elevated >160 mmHg on recheck this AM, suggest giving an additional losartan 25 mg and increasing the daily dose of 50 mg QAM. Tolerating current therapy well. Volume status acceptable. Low sodium diet. Repeat metabolic profile tomorrow. (2) CKD (chronic kidney disease) stage 4, GFR 15-29 ml/min: Plan: Chronically atrophic right kidney. b/l Renal artery stenosis. CKD IIIb A3 (baseline creat 1.5 mg/dL, PCR 0.3). Kidney function stable. Recent post-op LUCAS resolved. Prospective monitoring. Medications currently appropriately dosed for kidney function. (3) Avascular necrosis of bone of left hip: Plan: s/p L VERN and L hip abductor repair by Eliazar Singh MD - 09/25/23. (4) Renal artery stenosis: Plan: No indication for intervention at this time. Continue medical management for blood pressure. Kidney function stable. Admission and Anticipated Discharge Date Admission Date: September 22, 2023 Subjective No acute events overnight. Radha was resting in her bedside chair this AM. She feels reasonably well. She endorsed some fatigue and weakness. She denies significant pain. She denies any headaches, chest pain, shortness of breath, or changes in vision. She does not sleep well in the hospital. She admits to some anxiety regarding her blood pressure but states that she has not symptoms associated with it. She denies fluid retention or edema. She denies any lightheadedness, dizziness, or presyncope. Review of Systems Review of Systems: All systems reviewed & are unremarkable except as noted in HPI & below Physical Exam Constitutional: well developed; no acute distress Eyes: no scleral abnormality and no corneal abnormality ENMT: Mouth: no oral mucosal abnormality and oral mucous membranes not dry Neck: normal visual inspection and trachea midline Respiratory: normal respiratory effort Auscultation: lungs clear to auscultation bilaterally Cardiovascular: Rate/Rhythm: regular rate Heart Sounds: normal S1 and normal S2 Extremities: no edema Musculoskeletal: Extremities: no cyanosis and no clubbing Skin: normal turgor; no jaundice Neurologic: Motor/Sensory: no tremor and no asterixis Psychiatric: Orientation: alert and oriented x 3 Results & Data Vital Signs (Past 12 Hours) Vital Signs Temp Pulse Pulse Resp BP Pulse Ox O2 Del Method 09/30/23 07:30 Room Air 09/30/23 07:14 36.7 C 65 16 196/48 H 95 Room Air 09/30/23 07:00 65 09/30/23 04:14 37.2 C 66 18 95 Room Air 09/30/23 03:19 185/57 H 09/30/23 00:07 59 L 09/29/23 23:29 37.2 C 62 18 96 Room Air 09/29/23 23:03 170/69 H Laboratory Results Laboratory Results - last 24 hr 09/30/23 07:54 WBC 7.76 RBC 2.90 L Hgb 9.6 L Hct 29.7 L MCV 102.4 H MCH 33.1 MCHC 32.3 RDW Std Deviation 53.5 H RDW Coeff of Geeta 14.2 Plt Count 262 MPV 11.3 Immature Gran % (Auto) 1.0 Neut % (Auto) 61.9 Lymph % (Auto) 18.9 [place] % (Auto) 14.3 Eos % (Auto) 3.5 Baso % (Auto) 0.4 Neut # (Auto) 4.80 Lymph # (Auto) 1.47 [place] # (Auto) 1.11 H Eos # (Auto) 0.27 Baso # (Auto) 0.03 Immature Gran # (Auto) 0.08 Sodium 139 Potassium 4.2 Chloride 108 H Carbon Dioxide 24 Anion Gap 7 BUN 41 H Creatinine 1.16 Est Cr Clr Drug Dosing 46.2 Est GFR ( Amer) 54.1 Est GFR (Non-Af Amer) 46.7 BUN/Creatinine Ratio 35.3 H Glucose 112 H Calcium 9.3 PG Care Time/CCT Total # of Minutes Spent Total Time Spent with Patient: Total time spent is greater than 50% in coordination of care (as documented) at patient's floor/unit and/or counseling patient: Coding Level of Care Code 56194 SUB INP/OBS CARE 3/50MIN Diagnoses HTN (hypertension) I10 Hypertension type: unspecified CKD (chronic kidney disease) stage 4, GFR 15-29 ml/min N18.4 Avascular necrosis of bone of left hip M87.052 Renal artery stenosis I70.1 (1) HTN (hypertension) Hypertension type: unspecified Qualified Code(s): I10 - Essential (primary) hypertension
[2023-09-30 11:17] VITALS: RESP 20; TEMP 98.6; O2SAT 97
[2023-09-30 13:38] VITALS: BP 154/65
--- NOTE | 2023-09-30 14:45 | Discharge Summary ---
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 She has been having worsening pain for last 2-3 weeks. she was twisting, tramped on an object, felt a pop to L hip region and developed bruising. She did not fall or have any nam trauma. Since this she has been having persistent decline and last 2 weeks so painful she required a cane. Pain has been progressively worse to the point she cannot lay down. She has had a dexa scan many years ago, but was never told she had osteopenic or osteoporosis. She has been intermittently on oral prednisone for pulmonary issue. She had been following with [facility] and she was receiving steroid shots to L hip w no relief. She had an outpatient L hip MRI which is showing tiny Left femoral head fracture and avascular necrosis. SHe was being seen by nephrology today and due to uncontrolled BP and severe L hip pain she was referred to ED. A few days ago she had an elevated temp of 100F. She took some tylenol which resolved the fever. Otherwise she denies chills, sweats, chest pain, sob, URI sx, n/v/d, abd pain. She has been moving her bowels regularly for her. She also denies dysuria, increased urg/freq with urination. Sister is at bedside who helps elicit history. Admission Exam Per Admitting Provider GENERAL APPEARANCE: AxOx4, mild distress HEENT: NC, AT. MMM. EOMI, clear conjunctiva, oropharynx clear. NECK: Supple without lymphadenopathy. No stiffness or restricted ROM. HEART: Normal rate and regular rhythm, normal S1/S1, no m/r/g LUNGS: CTAB, moving air well. No crackles or wheezes are heard. EXTREMITIES: left lower extremity with extremely limited ROM 2/2 Pain, held in mild flexion, sensation intact pulses intact NEUROLOGICAL: Grossly nonfocal. Alert and oriented, moving all 4 extremities. CN not formally tested but appear grossly intact. Skin: Warm and dry without any rash. Principal Diagnosis L hip pain L hip avascular necrosis Closed fx of L femur head Multifocal muscular and mixed age tendon injuries Discharge Exam General- oriented x 3, not in distress, speaks in sentences with no effort or accessory muscle use Eyes- anicteric Neck- no JVD Lungs- clear breath sounds bilaterally, no rales/wheezes Heart- normal rate, regular rhythm; no murmurs Abdomen- normal bowel sounds, nondistended, soft, nontender Extremities- no pretibial edema, no calf tenderness No hematoma, bleeding, discharge Neuro- alert, oriented x 3; no gross focal neurologic deficits Skin- warm & dry Discharge Data Allergies Allergy/AdvReac Type Severity Reaction Status Date / Time oxycodone AdvReac Severe syncope, Verified 09/22/23 13:11 low bp nickel AdvReac Intermediate rash and Verified 09/22/23 13:11 skin turns green Consultations 09/22/23 17:48 Consult Orthopedic Surgery Routine 09/22/23 17:53 ED Decision to Admit Stat 09/23/23 14:13 Consult Nephrology Routine Procedures Performed Operation Date: 09/25/23 12:30 Actual Procedures p Left Total Hip Arthroplasty, Left Hip Abductor Repair(Left) - Eliazar Singh MD Hospital Course (1) Left hip pain: (2) Avascular necrosis of bone of left hip: (3) Closed fracture of head of left femur: (4) HTN (hypertension): (5) Hyperlipidemia: (6) PVD (peripheral vascular disease): (7) CKD (chronic kidney disease) stage 4, GFR 15-29 ml/min: Plan This is a 72-year-old female who has a significant past medical history of HTN, HLD, PVD with history of carotid stenosis status post right CEA, 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 MRI of the left hip showed avascular necrosis with a likely subacute left tiny femoral head fracture. Patient underwent left total hip arthroplasty and left hip abductor repair by Dr. Eliazar Singh on September 25, 2023 Patient underwent PT OT evaluation during the hospitalization after surgery Patient was tolerating physical therapy well and was able to move well with a walker. Patient was also noted to have high blood pressure for which nephrology was consulted. Medication adjustment were done; patient's blood pressure improved. Patient was discharged to rehab. Patient to follow-up with PCP after discharge Please note the above document was generated using voice recognition software. It may contain grammatical, syntax or spelling errors. Any formal questions or concerns about the content, text or information contained within the body of this dictation should be directly addressed to the provider for clarification Total Time Total Time Spent Total Time Spent (In Minutes): 35 Total Time Includes: Examination of the Patient, Discharge Planning, Medication Reconciliation, Communication With Other Providers and Other Discharge Plan Discharge Items Patient Disposition: Transfer Group Home Fac Reason For Visit: L HIP FRACTURE Discharge Diagnosis: Left Hip Replacement Condition on Discharge: Good Activity: Per Instructions section Activity Comment: Follow/Obey hip precautions at all times. Weightbearing: Full weightbearing Weightbearing Comment: Weightbear as tolerated obeying hip precautions at all times Non-emergency contact: Primary Care Provider Call non-emergency contact if: you have any medication questions and your symp toms worsen Follow-up/Referrals: Eliazar Singh MD [Physician] - (Orthopedic follow-up 2-3 weeks from surgery date.) Karl Howe DO [Primary Care Provider] - Diet: Regular Addtl Attending Provider Instructions: You were admitted to the hospital with left hip pain; found to have left hip avascular necrosis. You underwent surgery by Dr. Singh on September 25, 2023. Please follow the instructions below ACTIVITY RECOMMENDATIONS: Physical Therapy: * Aggressive physical therapy is not usually needed. You will learn to take care of yourself safely and walk. * Follow the "Hip Precautions Instructions." * In some cases, the social science manager at the hospital will arrange to have a therapist come to your house for the first couple of weeks to help you learn these skills. * You need to practice on your own or with the help of a family member as needed. * When you learn these skills, most of the therapy can be done on your own. Home Exercise: * You were shown a series of exercises in the hospital. Do these exercises three to four times each day including the exercises you were shown in physical therapy. Walking: * Get up and walk several times each day. For the first four weeks, try not to stand or walk for more than one hour at a time. If you do stand or walk for more than one hour, you will not hurt anything, but your leg will likely swell. * As you feel comfortable, you may change from the walker or crutches to a cane and then to independent walking. "VERY IMPORTANT TO READ AND REVIEW" Pain: * The immediate post-operative period after hip replacement surgery is often quite painful. * You are given a prescription for pain medicine. You should take it, as directed, when you need it, especially before physical therapy and before going to bed. Pain that interferes with sleep is very common and can last several months. * You will likely need pain medicine for the first two to four weeks. It will not stop all of the pain. The pain will lessen and as you feel better, you may change to milder pain medicine such as Tylenol. * The most common side effects of pain medicine are nausea and constipation, so don't take more than you need. SPECIAL CARE INSTRUCTIONS: TEDs/Elastic Stockings: * The white elastic stockings help limit swelling and prevent blood clots from forming in your legs. The more you wear them, the more they work. * Wear them for six weeks. Incision Site Care: * Remove dressing postoperative day 2 and then shower. Keep direct shower pressure off the incision site. * After showering, cover simeon with dry gauze and change daily or more frequently if the dressing is getting saturated with drainage. * May completely stop using bandage if wound is dry and no drainage * Laguna are removed between 2 and 3 weeks post-op. If your follow-up appointment is made before 2 weeks, please have your appointment re- scheduled. It is too early to remove the simeon. Prevention of Infection: * Take antibiotics one hour before any dental cleaning, dental work, urological procedure, gastrointestinal procedure or any invasive surgery in order to prevent your new joint from getting infected. * You may get the antibiotics from the doctor performing the procedure or you may call our office at before and we will call in a prescription to the pharmacy of your choice. Things to Watch For: * Drainage from the incision site that occurs more than one week after your surgery. * Severely increased leg pain or swelling. * Increased redness at the incision site. * Fever above 102 degrees Fahrenheit. * Unusual chest pain or shortness of breath. * Unusual pain or burning with urination. Call [facility] at with any of the above problems or if you have any questions about your medicines or recovery. FOLLOW UP VISIT: Make an appointment to see your doctor for approximately two weeks after surgery for a progress check and staple removal by calling the office at . Pending Studies at Discharge: No Stand-Alone Forms: My [facility] Skilled Items Patient informed of condition?: Yes DNR: No Discharge Level of Care: Skilled Communicable Disease: No Discharge Prognosis: Stable Lines: None Urinary Catheter: No Medications and DC Order Prescriptions: New polyethylene glycol 3350 [Miralax] 17 gram Powder In Packet 17 g PO DAILY Qty: 30 0RF hydrocodone-acetaminophen 5-325 mg Tablet 1 tab PO Q4H PRN (Reason: pain) Qty: 5 0RF spironolactone 25 mg Tablet 50 mg PO QAM Qty: 60 0RF cholecalciferol (vitamin D3) 25 mcg (1,000 unit) Capsule 25 mcg PO QAM Qty: 60 0RF Continued multivitamin Tablet 1 tab PO QAM Qty: 30 0RF tizanidine 2 mg tablet 2 mg PO HS PRN (Reason: Muscle Spasm) Qty: 30 0RF citalopram 40 mg Tablet 40 mg PO QAM Qty: 30 0RF gabapentin 400 mg capsule 400 mg PO TID Qty: 90 0RF omeprazole 40 mg capsule,delayed release(DR/EC) 40 mg PO BID Qty: 30 0RF trazodone 100 mg Tablet 100 mg PO HS Qty: 30 0RF amlodipine 10 mg tablet 10 mg PO QAM Qty: 30 0RF allopurinol 300 mg tablet 300 mg PO QAM Qty: 30 0RF duloxetine 30 mg capsule,delayed release(DR/EC) 30 mg PO HS Qty: 30 0RF carvedilol phosphate 20 mg capsule, ER multiphase 24 hr 20 mg PO QAM Qty: 30 0RF Rx Instructions: must administer with a meal/food Brilinta 90 mg tablet 90 mg PO AMHS Qty: 60 0RF Changed olmesartan 5 mg tablet 5 mg PO QAM Qty: 30 0RF Discontinued hydrocodone-acetaminophen 5-325 mg tablet 1 tab PO Q8 PRN (Reason: Severe Pain (Scale Score 7-10)) spironolactone 25 mg tablet 25 mg PO QAM Discharge Orders: Discharge Order (Routine); Ordered 09/30/23 Ordered By: Tank Quiroga Admission Data Admit Date/Time: 09/22/23 17:48 Attending Provider: Tank Quiroga Admit Provider: Mattie Manrique Primary Care Provider: Karl Howe Other Providers: Colby Teran; Mattie Manrique; Jose Angel Clark; Gabriel Oreilly Kevin C.; Lashon Irvin Other Interventions: Discharge Summary Assessment (RN) Last Done: 09/30/23 14:34
[2023-09-30 15:17] VITALS: PULSE 58
[2023-10-01] MEDS ORDERED: amLODIPine BESYLATE 5 MG TAB PO SCH (09:00)
== END 2023-09-30 15:40 | DRG 522 ==
LOC: ED 13:58 → SUATTDRO 17:48 → EDINP 17:48 → 2N 19:50
DX: D63.1 Anemia in chronic kidney disease; Z96.651 Presence of right artificial knee joint; I73.9 Peripheral vascular disease, unspecified; N18.4 Chronic kidney disease, stage 4 (severe); I12.9 Hypertensive chronic kidney disease with stage 1 through stage 4 chronic kidney disease, or unspecified chronic kidney disease; S72.092A Other fracture of head and neck of left femur, initial encounter for closed fracture; E78.5 Hyperlipidemia, unspecified; Z95.828 Presence of other vascular implants and grafts; Y92.89 Other specified places as the place of occurrence of the external cause; Z86.73 Personal history of transient ischemic attack (TIA), and cerebral infarction without residual deficits; M87.9 Osteonecrosis, unspecified; X50.0XXA Overexertion from strenuous movement or load, initial encounter; I16.0 Hypertensive urgency; M10.9 Gout, unspecified; Z88.5 Allergy status to narcotic agent; M76.892 Other specified enthesopathies of left lower limb, excluding foot

== ENCOUNTER 2024-01-22 12:27 | Inpatient (IN) ==
[2024-01-22] MEDS: ONDANSETRON INJ 2 MG/ML 2 ML VIAL ONE (13:19)
[2024-01-22] MEDS: ONDANSETRON INJ 2 MG/ML 2 ML VIAL IV STA ×2 (13:19→15:18)
[2024-01-22 13:28] LABS: Basophils # (auto) 0.04 K/uL (0.00-0.20); Basophils % (auto) 0.4 %; Eosinophils % (auto) 1.1 %; Hematocrit (blood only) 28.2 % (37.0-47.0); Hemoglobin 8.7 g/dl (12.0-16.0); Immature Granulocytes # (auto) 0.08 K/uL (0.01-0.20); Immature Granulocytes % (auto) 0.9 %; Lymphocytes # (auto) 2.14 K/uL (1.20-3.40); Lymphocytes % (auto) 22.8 %; Mean Corpuscular Hemoglobin 29.5 pg (25.0-34.0); Mean Corpuscular Hgb Conc 30.9 g/dL (32.0-36.0); Mean Corpuscular Volume 95.6 fL (80.0-100.0); Monocytes # (auto) 0.99 K/uL (0.11-0.59); Monocytes % (auto) 10.6 %; Neutrophils # (auto) 6.03 K/uL (1.40-6.50); Neutrophils % (auto) 64.2 %; Platelet Count 262 K/uL (130-400); RDW Coefficient of Variation 15.9 % (11.5-14.5); RDW Standard Deviation 55.3 fL (36.4-46.3); Red Blood Count 2.95 M/uL (4.20-5.40); White Blood Count 9.38 K/ul (4.8-10.8)
[2024-01-22 13:48] LABS: Alanine Aminotransferase 10 U/L (7-52); Albumin Globulin Ratio 1.1 (0.9-2); Albumin Level 3.6 gm/dl (3.4-5.0); Alkaline Phosphatase 87 U/L (34-104); Anion Gap 12 (3-11); Aspartate Aminotransferase 24 U/L (13-39); BUN Creatinine Ratio 19.7 (10-20); Bilirubin,Total 1.2 mg/dl (0.2-1.0); Blood Urea Nitrogen 26 mg/dl (6-23); Calcium 9.5 mg/dl (8.6-10.3); Carbon Dioxide 20 mmol/L (21-32); Chloride 103 mmol/L (98-107); Est GFR (African American) 45.9 ml/min; Est GFR (Non-African American) 39.6 ml/min; Globulin 3.3 gm/dl (2.5-4.0); Glucose 102 mg/dl (70-99(Fasting)); Lipase 42 U/L (11-82); Potassium 4.2 mmol/L (3.5-5.1); Sodium 135 mmol/L (136-145); Total Protein 6.9 gm/dl (6.0-8.3)
[2024-01-22 13:51] LABS: Troponin I High Sensitivity 24.3 pg/ml (0-14)
[2024-01-22] MEDS: OPTIRAY 320 100ml IV ONE (14:15)
--- NOTE | 2024-01-22 14:34 | Emergency Department Note ---
Impression & Plan Bilateral ureteral calculi, Anemia, Elevated troponin, Abdominal pain, Nausea & vomiting ED Provider Note NAME: ZHANE POTTER AGE: 73 SEX: F : 1950 ARRIVES VIA: Walk-In INFORMANT: Patient ED PROVIDER(S): Luis Angel Hernández DO CHIEF COMPLAINT: abdominal pain, vomiting HPI: Patient is a 73-year-old female who presents ER for the abdominal pain and vomiting. She notes the abdominal pain has been present for at least a month. She has had diminished intake as she does not feel like eating. When she eats sometimes she does vomit. She does not feel like food is getting stuck in her throat. She denies any chest pain or shortness of breath. She just got out of her she following having a stent placed about a month ago. She also recently had her hip done. She denies any dysuria urgency or frequency. No other exacerbating or remitting factors. ADDITIONAL HISTORY OBTAINED: Additional history obtained from her friend who is present at bedside who notes that she just had a stent placed within the past month Chronic Medical/Social Conditions Affecting Care: Per HPI PAST MEDICAL HISTORY:See Below PAST SURGICAL HISTORY:See Below FAMILY HISTORY:See Below SOCIAL HISTORY:See Below HOME MEDICATIONS:See Below ALLERGIES:See Below VITALS:See Below PHYSICAL EXAMINATION: GENERAL: Sitting up in bed, alert, well appearing, well nourished, no distress, non-toxic EYE EXAM: normal conjunctiva. OROPHARYNX: mucous membranes are moist NECK: supple, no nuchal rigidity, no adenopathy, non-tender LUNGS: Clear to auscultation. Normal chest wall mechanics HEART: no murmurs, S1 normal and S2 normal ABDOMEN: abdomen soft, tender palpation lower abdomen, normo-active bowel sounds, no masses, no rebound or guarding. BACK: Back is symmetrical on inspection and there is no deformity, no midline tenderness, no CVA tenderness. SKIN: no rashes and no bruising UPPER EXTREMITIES: upper extremities are grossly normal. LOWER EXTREMITIES: Bruising and swelling of her left hip with hematoma. No surrounding erythema or induration NEURO EXAM: Normal sensorium, cranial nerves II-XII grossly intact, normal speech, no gross weakness of arms, no gross weakness of legs. MEDICAL DECISION MAKING: Patient is a 73-year-old female who presents ER for above-stated complaint. IV was established blood work was obtained. Labs show no significant leukocytosis. Mild anemia at 8.7 fairly consistent with previous. BMP with creatinine 1.3 with a small gap and a mild acidosis with a CO2 of 20. T. bili at 1.2. Troponin elevated 24. EKG was changed in comparison to previous with new T wave inversions. She was given IV narcotics, fluids and Zofran. CT abdomen pelvis showed bilateral ureteral stones. She was updated bedside. Discussed case with the hospitalist for further evaluation management treatment. Consults/Care Managements Discussions: Per [facility] Triage Nursing notes reviewed. Limited review of prior medical records performed Vital Signs: reviewed and remarkable for HTN Differential diagnosis: Differential diagnoses include major intracranial, cervical, spinal, thoracic, abdominal, pelvic and neurologic injury. Fracture, contusion, sprain, strain, laceration, abrasions included as well. ER treatment provided: See below Diagnostics interpreted by me include EKG and cardiac monitoring as listed below: -Cardiac Monitoring: An order was placed for continuous cardiac monitoring. The monitor shows a rate of 65 with sinus rhythm. -ECG: Sinus rhythm rate 69 Normal axis No PVCs T wave inversions in the inferior leads as well as the septal anterior lateral leads QTc 600 -Laboratory studies:Interpreted by me as stated above in MDM and shown below. Imaging studies: Xrays: As interpreted by me:none CTs show: CT abdomen pelvis per my preliminary interpretation showed no obvious bowel obstruction CT abdomen pelvis per radiologist described above Procedures:none Critical Care: None Past Med/Surg History Problem List (Updated 01/22/24 @ 16:50 by Luis Angel Hernández DO) Nausea & vomiting (Acute) Abdominal pain (Acute) Elevated troponin (Acute) Anemia (Acute) Bilateral ureteral calculi (Acute) Status post left hip replacement Hypertensive urgency Acute pain of left hip (Acute) CKD (chronic kidney disease) stage 4, GFR 15-29 ml/min PVD (peripheral vascular disease) Closed fracture of head of left femur Avascular necrosis of bone of left hip (Acute) Left hip pain Vitamin D deficiency Glenohumeral arthritis TIA (transient ischemic attack) Rotator cuff arthropathy Left knee DJD Right knee DJD Chronic kidney disease, stage III (moderate) Polyarticular joint involvement Bilateral leg pain (Acute) LUCAS (acute kidney injury) (Acute) Pedal edema (Acute) Anemia (Acute) Leg pain LUCAS (acute kidney injury) Mesenteric artery stenosis Cervical stenosis of spinal canal Encounter for pre-operative examination Anemia Diverticular disease Coronary artery disease Hyperlipidemia Depression Insomnia HTN (hypertension) (Chronic) Mesenteric artery stenosis Gout (Chronic) Medical History Renal artery stenosis Neck pain Carotid artery stenosis Diverticular disease Chronic back pain Hypertension Hyperlipidemia Surgical History History of CEA (carotid endarterectomy) History of arthroplasty of right knee History of back surgery History of carpal tunnel surgery H/O left cataract extraction History of bilateral tubal ligation History of arthroscopy History of colonoscopy History of endoscopic sinus surgery Family History Mother Family history of early CAD Social History Smoking Status: Never smoker Second Hand Exposure: No; Do You Dip or Chew Tobacco: No; Hx Alcohol Use: No Hx Substance Use: No Preferred Language: Chinese Communication Ability: Effective Visual Impairment: No Limitations 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: No Beliefs That Will Affect Care: None marital status: Single Current Living Situation: Family Feels Safe at Home: Yes Assistive Devices: Cane Allergies Allergies Allergy/AdvReac Type Severity Reaction Status Date / Time oxycodone AdvReac Severe syncope, Verified 01/06/24 13:33 low bp nickel AdvReac Intermediate rash and Verified 01/06/24 13:33 skin turns green Home Meds Home Medications Medication Instructions Recorded Confirmed polyethylene glycol 3350 17 gram 17 g PO DAILY 12/14/23 01/22/24 oral powder packet (Miralax) aspirin 81 mg chewable tablet 81 mg PO DAILY 01/22/24 01/22/24 atorvastatin 80 mg tablet 80 mg PO DAILY 01/22/24 01/22/24 carvedilol 25 mg tablet 25 mg PO BID 01/22/24 01/22/24 citalopram 40 mg tablet 40 mg PO .QHS 01/22/24 01/22/24 clopidogrel 75 mg tablet 75 mg PO DAILY 01/22/24 01/22/24 ferrous sulfate 325 mg (65 mg 325 mg PO DAILY 01/22/24 01/22/24 iron) tablet (FeroSul) gabapentin 300 mg capsule 300 mg PO DAILY 01/22/24 01/22/24 hydralazine 50 mg tablet 50 mg PO TID 01/22/24 01/22/24 hydrocodone 7.5 mg-acetaminophen 1 tab PO TID PRN Chronic back pain 01/22/24 01/22/24 325 mg tablet nitroglycerin 0.4 mg sublingual 0.4 mg sublingual .Q5MIN PRN Chest 01/22/24 01/22/24 tablet Pain omeprazole 40 mg capsule,delayed 40 mg PO DAILY 01/22/24 01/22/24 release spironolactone 25 mg tablet 25 mg PO DAILY 01/22/24 01/22/24 trazodone 100 mg tablet 100 mg PO .QHS Sleep 01/22/24 01/22/24 Previous Rx's Medication Instructions Recorded multivitamin 1 tab PO QAM #30 tabs 09/30/23 allopurinol 300 mg tablet 300 mg PO DAILY #90 tabs 12/24/23 amlodipine 10 mg tablet 10 mg PO DAILY #90 tabs 12/24/23 Results & Data (ED) Vital Signs Vital Signs - 24 hr 01/22/24 12:45 01/22/24 15:30 01/22/24 15:40 Temperature 36.6 C Temperature Source Oral Pulse Rate 64 72 Pulse Rate [Apical] 67 Respiratory Rate 16 29 H Respiratory Depth Normal Blood Pressure 156/57 H Blood Pressure [Left Arm] 180/57 H Blood Pressure Mean 90 Blood Pressure Mean [Left Arm] 98 Pulse Oximetry 96 99 Oxygen Delivery Method Room Air Room Air Sepsis Recent Fever Within 48 Hours No Sepsis New/Unexplained Change in Mental Status N/A Sepsis Action Taken by Nursing No Action Required Laboratory Data 01/22/24 13:09 01/22/24 13:09 Lab Results 01/22/24 01/22/24 Range/Units 13:09 15:13 WBC 9.38 (4.8-10.8) K/ul RBC 2.95 L (4.20-5.40) M/uL Hgb 8.7 L (12.0-16.0) g/dl Hct 28.2 L (37.0-47.0) % MCV 95.6 (80.0-100.0) fL MCH 29.5 (25.0-34.0) pg MCHC 30.9 L (32.0-36.0) g/dL RDW Std Deviation 55.3 H (36.4-46.3) fL RDW Coeff of Geeta 15.9 H (11.5-14.5) % Plt Count 262 (130-400) K/uL MPV 12.0 (9.4-12.4) fL Immature Gran % (Auto) 0.9 % Neut % (Auto) 64.2 % Lymph % (Auto) 22.8 % [place] % (Auto) 10.6 % Eos % (Auto) 1.1 % Baso % (Auto) 0.4 % Neut # (Auto) 6.03 (1.40-6.50) K/uL Lymph # (Auto) 2.14 (1.20-3.40) K/uL [place] # (Auto) 0.99 H (0.11-0.59) K/uL Eos # (Auto) 0.10 (0.00-0.50) K/uL Baso # (Auto) 0.04 (0.00-0.20) K/uL Immature Gran # (Auto) 0.08 (0.01-0.20) K/uL Sodium 135 L (136-145) mmol/L Potassium 4.2 (3.5-5.1) mmol/L Chloride 103 (98-107) mmol/L Carbon Dioxide 20 L (21-32) mmol/L Anion Gap 12 H (3-11) BUN 26 H (6-23) mg/dl Creatinine 1.32 H (0.6-1.2) mg/dl Est Cr Clr Drug Dosing Not Reportable Est GFR ( Amer) 45.9 ml/min Est GFR (Non-Af Amer) 39.6 ml/min BUN/Creatinine Ratio 19.7 (10-20) Glucose 102 H (70-99(Fasting)) mg/dl Calcium 9.5 (8.6-10.3) mg/dl Total Bilirubin 1.2 H (0.2-1.0) mg/dl AST 24 (13-39) U/L ALT 10 (7-52) U/L Alkaline Phosphatase 87 (34-104) U/L Troponin I High Sens 24.3 H (0-14) pg/ml Total Protein 6.9 (6.0-8.3) gm/dl Albumin 3.6 (3.4-5.0) gm/dl Globulin 3.3 (2.5-4.0) gm/dl Albumin/Globulin Ratio 1.1 (0.9-2) Lipase 42 (11-82) U/L Urine Color Yellow Urine Appearance Clear (Clear) Urine pH 6.5 (4.5-7.5) Ur Specific [place] 1.035 H (1.000-1.030) Urine Protein Trace H (Negative) Urine Glucose (UA) Negative (Negative) Urine Ketones Trace H (Negative) Urine Blood Negative (Negative) Urine Nitrite Negative (Negative) Urine Bilirubin Negative (Negative) Urine Urobilinogen Negative (Negative) Ur Leukocyte Esterase Trace H (Negative) Urine WBC (Auto) 0-5 (0-5) /hpf Urine RBC (Auto) 0-2 (0-2) /hpf U Hyaline Cast (Auto) 3-5 H (0-2) /lpf U Epithel Cells (Auto) 0-2 (0-2) /hpf Urine Bacteria (Auto) None Seen (None Seen) Administered Medications Discontinued Medications Sodium Chloride (Nss) 1,000 mls @ 999 mls/hr IV .Q1H1M ONE Stop: 01/22/24 15:34 Last Admin: 01/22/24 15:23 Dose: 999 mls/hr Documented By: CISCO Ceftriaxone Sodium (Rocephin) 2,000 mg in 50 mls @ 100 mls/hr IV NOW STA Stop: 01/22/24 15:30 Last Infusion: 01/22/24 15:55 Dose: Infused Documented By: Admin: 01/22/24 15:19 Dose: 100 mls/hr Documented By: CISCO Ioversol (Optiray 320 100ml) 70 ml IV ONCE ONE Stop: 01/22/24 14:16 Last Admin: 01/22/24 14:15 Dose: 70 ml Documented By: FEI Morphine Sulfate (Morphine Sulfate 4 Mg/Ml 1 Ml Carp\Vial) 4 mg IV NOW STA Stop: 01/22/24 15:02 Last Admin: 01/22/24 15:19 Dose: 4 mg Documented By: CISCO Ondansetron HCl (Ondansetron Inj 2 Mg/Ml 2 Ml Vial) Confirm Administered Dose 4 mg .ROUTE .STK-MED ONE Stop: 01/22/24 13:07 Last Admin: 01/22/24 13:19 Dose: 4 mg Documented By: MÓNICA Ondansetron HCl (Ondansetron Inj 2 Mg/Ml 2 Ml Vial) 4 mg IV NOW STA Stop: 01/22/24 13:19 Last Admin: 01/22/24 13:19 Dose: Not Given Documented By: MÓNICA Ondansetron HCl (Ondansetron Inj 2 Mg/Ml 2 Ml Vial) 4 mg IV NOW STA Stop: 01/22/24 15:02 Last Admin: 01/22/24 15:18 Dose: 4 mg Documented By: CISCO Imaging Data Radiologist's Impression: Abdomen/Pelvis CT 01/22/24 13:59 CT SCAN OF THE ABDOMEN AND PELVIS WITH IV CONTRAST CLINICAL HISTORY: Generalized abdominal pain. Nausea and vomiting. COMPARISON STUDY: Abdominal CT dated 07/04/2022. TECHNIQUE: Following the IV administration of 70 cc of Optiray 320, CT scan of the abdomen and pelvis is performed from the lung bases to the proximal femora. Images are reviewed in the axial, sagittal, and coronal planes. IV contrast was administered without complication. A dose lowering technique was utilized adhering to the principles of ALARA. There is streak artifact from the arms which could not be elevated above the abdomen. CT DOSE: 1167.49 mGy.cm FINDINGS: Lung bases: The heart is normal in size and without pericardial effusion. There are coronary artery calcifications. A small hiatal hernia is noted. The lung bases are clear noting mild bibasilar scarring/atelectasis. Liver: The contrast-enhanced liver is normal in size, contour, and attenuation. There is no intrahepatic biliary ductal dilatation. The hepatic veins and portal veins are patent. Gallbladder: There are calcified gallstones with no CT evidence of acute cholecystitis. Spleen: Normal in size and attenuation. Pancreas: Unremarkable. Adrenal glands: Unremarkable. Kidneys: There is asymmetric cortical atrophy of the right kidney as compared to the left. No hydronephrosis is seen. There is a 6 mm calculus in the distal right ureter just above the vesicoureteral junction seen on image #252. A 10 mm calculus is noted in the distal left ureter on image #262. No upstream hydroureter is seen bilaterally. There is heterogeneous diminished enhancement of the right kidney as compared to the left. Abdominal vasculature: The abdominal aorta is normal in course and caliber noting advanced atherosclerotic calcification. A stent is noted in the superior mesenteric artery. Bowel: There is no bowel obstruction. The appendix is well-visualized and normal. Peritoneum: There is no intraperitoneal free air or abdominal ascites. Lymphadenopathy: None. Pelvic viscera: Evaluation of the pelvis is degraded by streak artifact from a left hip arthroplasty. The bladder is decompressed and grossly unremarkable. Uterus and adnexa are normal as visualized. Skeletal structures: The skeletal structures are osteopenic. Advanced spondylotic and postsurgical change is noted in the lumbar spine. A left hip arthroplasty is in place No lytic or blastic lesions are seen. Sclerotic changes noted in the sacroiliac joints. Soft tissues: There is soft tissue edema identified in the left upper thigh. There is a thick-walled pocket of complex fluid seen around the posterior left femoral shaft seen on axial image #314. This measures approximately 7 x 6 x 3.5 cm. There is a similar-appearing fluid collection in the subcutaneous soft tissues seen more superiorly overlying the left gluteal musculature on image #242. This measures approximately 6 x 6 x 5 cm. These collections closely approximated each other and may communicate. There is asymmetric atrophy of the left gluteal musculature as compared to the right. IMPRESSION: 1. There is a 6 mm calculus in the distal right ureter and a 10 mm calculus in the distal left ureter. No upstream hydroureteronephrosis is identified in either kidney. 2. Cholelithiasis. 3. There is asymmetric soft tissue edema identified in the left upper thigh with complex fluid collections overlying the left gluteal musculature and around the posterior aspect of the proximal femur. These may represent postoperative fluid collections such as seroma/hematomas. The sterility of this fluid cannot be assessed by imaging. Follow-up with patient's orthopedic surgeon is recommended. 4. Asymmetric cortical atrophy of the right kidney as compared to the left is similar to previous. 5. Additional findings as above. ACT 112: Negative or not required by law. Electronically signed by: Manan Pinto M.D. 01/22/2024 2:43 PM Discharge Plan Visit Data Chief Complaint: Illness Stated Complaint: UNABLE TO EAT, WEAKNESS, N/V/D ED Provider: Luis Angel Hernández Discharge Problem: Bilateral ureteral calculi, Anemia, Elevated troponin, Abdominal pain, Nausea & vomiting Forms Stand Alone Forms: [place] Prescriptions Prescriptions: No Action polyethylene glycol 3350 [Miralax] 17 gram powder in packet 17 g PO DAILY amlodipine 10 mg tablet 10 mg PO DAILY Qty: 90 3RF allopurinol 300 mg tablet 300 mg PO DAILY Qty: 90 3RF multivitamin Tablet 1 tab PO QAM Qty: 30 0RF carvedilol 25 mg tablet 25 mg PO BID clopidogrel 75 mg tablet 75 mg PO DAILY spironolactone 25 mg tablet 25 mg PO DAILY ferrous sulfate [FeroSul] 325 mg (65 mg iron) tablet 325 mg PO DAILY gabapentin 300 mg capsule 300 mg PO DAILY hydralazine 50 mg tablet 50 mg PO TID atorvastatin 80 mg tablet 80 mg PO DAILY hydrocodone-acetaminophen 7.5-325 mg tablet 1 tab PO TID PRN (Reason: Chronic back pain) nitroglycerin 0.4 mg tablet, sublingual 0.4 mg sublingual .Q5MIN PRN (Reason: Chest Pain) aspirin 81 mg tablet,chewable 81 mg PO DAILY citalopram 40 mg tablet 40 mg PO .QHS omeprazole 40 mg capsule,delayed release(DR/EC) 40 mg PO DAILY trazodone 100 mg tablet 100 mg PO .QHS Referrals Referrals: Karl Howe DO [Primary Care Provider] - Discharge Problem: Anemia Qualifiers: Anemia type: unspecified type Qualified Code(s): D64.9 - Anemia, unspecified Abdominal pain Qualifiers: Abdominal location: unspecified location Qualified Code(s): R10.9 - Unspecified abdominal pain Nausea & vomiting Qualifiers: Vomiting type: unspecified Qualified Code(s): R11.2 - Nausea with vomiting, unspecified
--- NOTE | 2024-01-22 14:45 | CT Scan Report ---
CT SCAN OF THE ABDOMEN AND PELVIS WITH IV CONTRAST CLINICAL HISTORY: Generalized abdominal pain. Nausea and vomiting. COMPARISON STUDY: Abdominal CT dated 07/04/2022. TECHNIQUE: Following the IV administration of 70 cc of Optiray 320, CT scan of the abdomen and pelvi s is performed from the lung bases to the proximal femora. Images are reviewed in the axial, sagittal , and coronal planes. IV contrast was administered without complication. A dose lowering technique wa s utilized adhering to the principles of ALARA. There is streak artifact from the arms which could no t be elevated above the abdomen. CT DOSE: 1167.49 mGy.cm FINDINGS: Lung bases: The heart is normal in size and without pericardial effusion. There are coronary artery c alcifications. A small hiatal hernia is noted. The lung bases are clear noting mild bibasilar scarrin g/atelectasis. Liver: The contrast-enhanced liver is normal in size, contour, and attenuation. There is no intrahepa tic biliary ductal dilatation. The hepatic veins and portal veins are patent. Gallbladder: There are calcified gallstones with no CT evidence of acute cholecystitis. Spleen: Normal in size and attenuation. Pancreas: Unremarkable. Adrenal glands: Unremarkable. Kidneys: There is asymmetric cortical atrophy of the right kidney as compared to the left. No hydrone phrosis is seen. There is a 6 mm calculus in the distal right ureter just above the vesicoureteral ju nction seen on image #252. A 10 mm calculus is noted in the distal left ureter on image #262. No upst ream hydroureter is seen bilaterally. There is heterogeneous diminished enhancement of the right kidn ey as compared to the left. Abdominal vasculature: The abdominal aorta is normal in course and caliber noting advanced atheroscle rotic calcification. A stent is noted in the superior mesenteric artery. Bowel: There is no bowel obstruction. The appendix is well-visualized and normal. Peritoneum: There is no intraperitoneal free air or abdominal ascites. Lymphadenopathy: None. Pelvic viscera: Evaluation of the pelvis is degraded by streak artifact from a left hip arthroplasty. The bladder is decompressed and grossly unremarkable. Uterus and adnexa are normal as visualized. Skeletal structures: The skeletal structures are osteopenic. Advanced spondylotic and postsurgical ch beth is noted in the lumbar spine. A left hip arthroplasty is in place No lytic or blastic lesions ar e seen. Sclerotic changes noted in the sacroiliac joints. Soft tissues: There is soft tissue edema identified in the left upper thigh. There is a thick-walled pocket of complex fluid seen around the posterior left femoral shaft seen on axial image #314. This m easures approximately 7 x 6 x 3.5 cm. There is a similar-appearing fluid collection in the subcutaneo us soft tissues seen more superiorly overlying the left gluteal musculature on image #242. This measu res approximately 6 x 6 x 5 cm. These collections closely approximated each other and may communicate . There is asymmetric atrophy of the left gluteal musculature as compared to the right. IMPRESSION: 1. There is a 6 mm calculus in the distal right ureter and a 10 mm calculus in the distal left ureter . No upstream hydroureteronephrosis is identified in either kidney. 2. Cholelithiasis. 3. There is asymmetric soft tissue edema identified in the left upper thigh with complex fluid collec tions overlying the left gluteal musculature and around the posterior aspect of the proximal femur. T hese may represent postoperative fluid collections such as seroma/hematomas. The sterility of this fl uid cannot be assessed by imaging. Follow-up with patient's orthopedic surgeon is recommended. 4. Asymmetric cortical atrophy of the right kidney as compared to the left is similar to previous. 5. Additional findings as above. ACT 112: Negative or not required by law. Electronically signed by: Manan Pinto M.D. 01/22/2024 2:43 PM
[2024-01-22] MEDS: cefTRIAXone SODIUM 2,000 MG/50 ML BAG IV STA (15:19)
[2024-01-22] MEDS: MoRPHine SULFATE 4 MG/ML 1 ML CARP\\VIAL IV STA (15:19)
[2024-01-22] MEDS: SODIUM CHLORIDE 0.9% 1,000 ML IV ONE (15:23)
--- NOTE | 2024-01-22 15:42 | History & Physical Report ---
Date of Service January 22, 2024 Assessment & Plan (1) Bilateral ureteral calculi: (2) Nausea & vomiting: (3) Abdominal pain: Plan: Radha Hare is a 73y/o F with PMHx of dyslipidemia, idiopathic chronic gout of multiple sites without tophus, allergic rhinitis, HTN, CAD, chronic HFpEF, TIA, hx of LUCAS [12/2023] multiple gastric ulcers, vitamin B12 deficiency, CKD stage III, osteoarthritis, depression and other problems listed below who presented to the ED today for evaluation of nausea and vomiting, abdominal pain x 1 week. Of note, patient presented to [facility] on 12/29/2023 and was ultimately transferred to [facility] for treatment of NSTEMI. Patient underwent successful PCI w/ REZA placement to the proximal LAD. Patient most recently followed up with [facility] [Dr. Obie Greer] on 01/05/2024. According to his documentation, patient is used to having blood pressures in the 160s/170s and higher. At that time, he determined that she was not ready for cardiac rehabilitation due to residual ongoing weakness. Patient to remain on aspirin for life and Plavix for at least a year unless she has bleeding that would subsequently reduce the duration of Plavix per his recommendation. She is supposedly scheduled to see Melodie, a [employer] in that facility/institute, in the next upcoming weeks. Patient was educated on a low-sodium diet and daily weights given her heart failure history during that visit as well. Patient does follow with [facility] Nephrology [Dr. Clark]. Most recent visit 01/04/2024. Appears her CKD has advanced to stage IV. According to his documentation, baseline creatinine 1.4-1.7 with EGFR 29 cc/min. She had a renal ultrasound done 06/2022 that revealed right kidney 8.7 cm (atr ophic) and left kidney 10.8 cm. * Appears target SBP 140-150 due to carotid vascular disease according to his note. It is documented that SBP<130 has been associated with near syncope for this patient. * She is currently on carvedilol, amlodipine, hydralazine and spironolactone. Is taking iron supplementation daily. On ASA, Plavix therapy. Vitals on admission: BP 166/56, HR 68, RR 18, Temp 36.8oC and SpO2 95% on RA. --> Patient does NOT use any supplemental oxygen therapy at home. EKG performed in the ED interpreted by myself and reveals the following: NSR w/ HR 69bpm, prolonged QT --> QT/QTc Int 560/600ms, T wave inversions in anteroinferior leads and P-R Int 174ms. RBC 2.95, Hgb 8.7 and Hct 28.2 on admission. Appears baseline hemoglobin ~8 per chart review. No significant, acute electrolyte abnormalities. Sodium only slightly down at 135. Initial troponin 24.3. Creatinine 1.32 on admission, appears baseline creatinine ~1.4-1.7 as above. --> No evidence of an LUCAS at this time. GFR 39.6, history of CKD stage III as per above. Glucose only slightly elevated at 102 on admission. UA rather unremarkable. There is presence of trace protein, ketones and leukocyt e esterase. However, NO urine bacteria seen. CT of abdomen/pelvis revealed the following: * 6 mm calculus in the distal right ureter and a 10 mm calculus in the distal left ureter. NO upstream hydroureteronephrosis is identified in either kidney. * Asymmetric soft tissue edema identified in the left upper thigh with complex fluid collections overlying the left gluteal musculature and around the posterior aspect of the proximal femur. these findings may represent postoperative fluid collection such as seroma/hematomas. Follow-up with her orthopedic surgeon is recommended. * Asymmetric cortical atrophy of the right kidney as compared to the left is similar to previous imaging studies and per above. * Cholelithiasis, no evidence of cholecystitis. She received 1L NSS, 4mg IV Zofran x 3 and 4mg IV morphine in the ED. Patient was also administered 2g of IV Rocephin in the ED. -Consult urology, appreciate their recommendations/input moving forward. * Did speak w/ Dr. Diaz via [employer] to make him aware of the patient. Intervention likely soon rather than later given B/L urinary calculi further increasing the risk of obstruction. Right kidney is already atrophic, so if the left kidney becomes blocked this can turn bad quickly since the right kidn ey will more than likely not be able to keep up per discussion w/ Dr. Diaz. Will keep her NPO @ midnight. He is going to make the OR aware of her case given the high probability of surgical intervention needing to occur over the weekend. For now, he recommends to keep hydrating her and closely monitoring urine output. Will continue IV Rocephin for now. -IVF in place, slow rate @ 80cc/hr given HFpEF history, potential for fluid overload. --> Closely monitor I&Os -Bowel regimen in place, daily Miralax [employer] COMM[employer]ICATION[employer] ENG[employer] --> Will continue this regimen while hospitalized. -Repeat EKG in the AM to monitor/check for any changes in QT/QTc, avoid nephrotoxic medications. -Will proceed w/ PRN IV Phenergan given evidence of prolonged QT/QTc on admission. --> AVOID QT/QTc prolonging agents. -PRN IV Tylenol for mild pain, PRN PO hydrocodone-acetaminophen for moderate pain and PRN IV Dilaudid for severe pain. -NPO @ midnight as per above. Will keep her on full liquid-based diet until then if she can tolerate it. Repeat CBC, BMP in AM. (4) Elevated troponin: Plan: Of note, patient presented to [facility] on 12/29/2023 and was ultimately transferred to [facility] for treatment of NSTEMI. Patient underwent successful PCI w/ REZA placement to the proximal LAD. Patient follows / [facility] [place] on an outpatient basis currently. EKG performed in the ED interpreted by myself and reveals the following: NSR w/ HR 69bpm, prolonged QT --> QT/QTc Int 560/600ms, T wave inversions in anteroinferior leads and P-R Int 174ms. Most recent echo performed 12/11/2023 and revealed the following: * LVEF = 65-69%, concentric LV wall thickening that is mildly increased. * Grade I LV diastolic dysfunction, mildly abnormal. Severely enlarged left atrium. * Mild aortic valve stenosis. No aortic stenosis. Mild mitral regurgitation. * Dilated proximal IVC, elevated right atrial pressure of 15mmHg. Trivial tricuspid regurgitation. -No acute ischemic changes on EKG --> Initial troponin bumped @ 24.3, will repeat x 2 and trend results. Patient NOT complaining of any chest pain/SOB whatsoever. -Repeat EKG in the AM to monitor/check for any changes in QT/QTc. (5) CKD (chronic kidney disease) stage 4, GFR 15-29 ml/min: (6) HTN (hypertension): Plan: As mentioned previously: * Appears target SBP 140-150 due to carotid vascular disease according to his note. It is documented that SBP<130 has been associated with near syncope for this patient. * She is currently on carvedilol, amlodipine, hydralazine and spironolactone. -Will hold spironolactone for now, continue all other SENIOR COMM[employer]ICATIONS ENGINEER anti-hypertensive medications. -Continuous cardiac monitoring in place, target SBP 140-150. -Repeat EKG in the AM to monitor/check for any changes in QT/QTc. (7) Coronary artery disease: (8) Hyperlipidemia: Plan: -Can continue SENIOR COMMUNICATIONS ENGINEER atorvastatin, aspirin and Plavix. (9) Anemia: Plan: RBC 2.95, Hgb 8.7 and Hct 28.2 on admission. Appears baseline hemoglobin ~8 per chart review. -Will continue SENIOR COMMUNICATIONS ENGINEER ferrous sulfate therapy while admitted. -Repeat iron panel, ferritin, folate and vit B12 in AM --> Has NOT be completely recently per chart review. (10) Chronic back pain: (11) Left hip pain: (12) Hematoma of left hip: (13) Status post left hip replacement: Plan: Per HPI: States that she has a lot of pain in her left hip s/p total left hip arthroplasty for tx of avascular necrosis [09/25/2023 w/ Dr. Jamie lemons @ [facility]] due to an ongoing hematoma in that region, which she states has gotten progressively worse and more painful. Patient reports she has been seen for this hematoma, but denies any intervention at this point. Patient reports having multiple issues w/ her back for years and years. On chronic opioid therapy [hydrocodone-acetaminophen] [employer]ENIOR COMMUNICATIONS ENGINEER for management of her chronic back pain. PDMP reviewed, last filled 12/21/23 --> 45 pills in total. Patient reports not taking this medication on a daily basis, takes it every few days as needed. -Will continue SENIOR COMMUNICATIONS ENGINEER chronic opioid therapy PRN for moderate pain while admitted, PRN IV Dilaudid for severe pain as above. -Patient states this medication is administered/monitored by her PCP. Last dose ordered by her PCP according to PDMP. (14) Gout: Plan: -Can continue SENIOR COMMUNICATIONS ENGINEER allopurinol therapy. (15) Depression: Plan: She received 1L NSS, 4mg IV Zofran x 3 and 4mg IV morphine in the ED. EKG performed in the ED interpreted by myself and reveals the following: NSR w/ HR 69bpm, prolonged QT --> QT/QTc Int 560/600ms, T wave inversions in anteroi nferior leads and P-R Int 174ms. -Will HOLD SENIOR COMMUNICATIONS ENGINEER citalopram for now given evidence of prolonged QTc. --> AVOID QT/QTc prolonging agents. -Repeat EKG in the AM to monitor/check for any changes in QT/QTc. (16) Insomnia: Plan: -Can continue SENIOR COMMUNICATIONS ENGINEER trazodone therapy. DVT Prophylaxis: SCDs - For now. Code Status: Full Code PCP: Karl Howe DO Dispo: Admit to Med/Surg w/ Telemetry Patient seen in collaboration with Dr. Manirque. Please see addendum. I spent a total of 75 minutes coordinating, documenting, and providing care for this patient excluding time spent in the performance of separately billed services. This included personally reviewing all current laboratories and imaging studies, medical reconciliation, outpatient chart review and discussion with specialists. This chart was completed in part utilizing Speech Voice Recognition Software. Grammatical errors, random word insertions, pronoun errors, and incomplete sentences are an occasional consequence of this system due to software limitations, ambient noise, and hardware issues. Any formal questions or concerns about the content, text, or information contained within the body of this dictation should be directly addressed to the provider for clarification. History of Present Illness Chief Complaint: Abdominal pain and N/V x 1 week Primary Care Provider: DO Familia Wolfgiacomo Hare is a 73y/o F with PMHx of dyslipidemia, idiopathic chronic gout of multiple sites without tophus, allergic rhinitis, HTN, CAD, chronic HFpEF, TIA, hx of LUCAS [12/2023] multiple gastric ulcers, vitamin B12 deficiency, CKD stage III, osteoarthritis, depression and other problems listed below who presented to the ED today for evaluation of nausea and vomiting, abdominal pain x 1 week. History obtained from patient, and associated ED/previous hospitalization/PCP/specialist records. Of note, patient presented to [facility] on 12/29/2023 and was ultimately transferred to [facility] for treatment of NSTEMI. Patient underwent successful PCI w/ REZA placement to the proximal LAD. Patient most recently followed up with [facility] [place] [Dr. Obie Greer] on 01/05/2024. According to his documentation, patient is used to having blood pressures in the 160s/170s and higher. At that time, he determined that she was not ready for cardiac rehabilitation due to residual ongoing weakness. Patient to remain on aspirin for life and Plavix for at least a year unless she has bleeding that would subsequently reduce the duration of Plavix per his recommendation. She is supposedly scheduled to see Melodie, a [employer]KER in that facility/institute, in the next upcoming weeks. Patient was educated on a low-sodium diet and daily weights given her heart failure history during that visit as well. Patient does follow with [facility] Ne[facility]rology [Dr. Clark]. Most recent visit 01/04/2024. Appears her CKD has advanced to stage IV. According to his documentation, baseline creatinine 1.4-1.7 with EGFR 29 cc/min. She had a renal ultrasound done 06/2022 that revealed right kidney 8.7 cm ( atrophic) and left kidney 10.8 cm. * Appears target SBP 140-150 due to carotid vascular disease according to his note. It is documented that SBP<130 has been associated with near syncope for this patient. * She is currently on carvedilol, amlodipine, hydralazine and spironolactone. Is taking iron supplementation daily. On ASA, Plavix therapy. Patient seen at bedside. Patient reports some generalized weakness since her cardiac procedure last month. She has been having some ongoing abdominal discomfort x 6 months. Patient reports new-onset of abdominal pain and N/V x 1 week. She denies any recent sick contacts. States she has been at home mostly for the past few months when not hospitalized or attending appointments, and her sister is the primary cdl team truck driver for her. She lives in a house by herself, and uses a walker at baseline and has a stair glide in place for tackling steps. Denies any recent falls or head trauma. She has not taken anything at home for the nausea. She is on chronic opioid therapy for chronic back pain, but reports not taking her hydrocodone-acetaminophen in the past 2 to 3 days. Patient states that she typically took this medication every couple of days beforehand, is NOT taking this medication on a daily basis. Denies any issues w/ constipation. States her bowels are "very dark" due to iron supplementation therapy. States the weakness has gotten progressively worse over time. Was nauseous on arrival to the ED and received a few doses of IV Zofran, but is currently denying any nausea. States that she has a lot of pain in her left hip s/p total left hip arthroplasty [09/25/2023 w/ Dr. Jamie lemons @ [facility]] due to an ongoing hematoma in that region, which she states has gotten progressively worse and more painful. Patient reports she has been seen for this hematoma, but denies any intervention at this point. Patient reports having multiple kidney stones in the past. Currently denies any flank pain. Has not had any recent fevers or chills. She is reporting generalized abdominal pain, but mentions the pain in her left lower abdominal region is worse due to the ongoing spreading hematoma surrounding her left hip. Patient reports very poor appetite, but states she is hydrating appropriately. Drinking approximately 2 larger bottles of water per day. Has been trying to consume Ensure drinks intermittently. Denies any hematemesis, urinary or bowel habit changes. No chest pain or SOB. States that she vomits anytime she tries to eat. She did take her medications this morning, and was able to keep them down. No concerns of dysphagia. No dizziness/lightheadedness upon standing. She reports not sleeping well recently, wakes up a lot in the middle night due to rolling over on her left hip and experiencing pain from doing so. States that she constantly "dozes off" throughout the day. Currently rates abdominal pain 5/10. Significantly more pain with movement, some comfort at rest. Vitals on admission: BP 166/56, HR 68, RR 18, Temp 36.8oC and SpO2 95% on RA. --> Patient does NOT use any supplemental oxygen therapy at home. RBC 2.95, Hgb 8.7 and Hct 28.2 on admission. Appears baseline hemoglobin ~8 per chart review. No significant, acute electrolyte abnormalities. Sodium only slightly down at 135. Initial troponin 24.3. Creatinine 1.32 on admission, appears baseline creatinine ~1.4-1.7 as above. --> No evidence of an LUCAS at this time. GFR 39.6, history of CKD stage III as per above. Glucose only slightly elevated at 102 on admission. UA rather unremarkable. There is presence of trace protein, ketones and leukocyte esterase. However, NO urine bacteria seen. CT of abdomen/pelvis revealed the following: * 6 mm calculus in the distal right ureter and a 10 mm calculus in the distal left ureter. NO upstream hydroureteronephrosis is identified in either kidney. * Asymmetric soft tissue edema identified in the left upper thigh with complex fluid collections overlying the left gluteal musculature and around the posterior aspect of the proximal femur. these findings may represent postoperative fluid collection such as seroma/hematomas. Follow-up with her orthopedic surgeon is recommended. * Asymmetric cortical atrophy of the right kidney as compared to the left is similar to previous imaging studies and per above. * Cholelithiasis, no evidence of cholecystitis. Allergies Allergy/AdvReac Type Severity Reaction Status Date / Time oxycodone AdvReac Severe syncope, Verified 01/22/24 16:57 low bp nickel AdvReac Intermediate rash and Verified 01/22/24 16:57 skin turns green Home Medications Medication Instructions Recorded Confirmed Type multivitamin 1 tab PO QAM #30 tabs 09/30/23 01/22/24 Rx polyethylene glycol 3350 17 gram 17 g PO DAILY 12/14/23 01/22/24 History oral powder packet (Miralax) allopurinol 300 mg tablet 300 mg PO DAILY #90 tabs 12/24/23 01/22/24 Rx amlodipine 10 mg tablet 10 mg PO DAILY #90 tabs 12/24/23 01/22/24 Rx aspirin 81 mg chewable tablet 81 mg PO DAILY 01/22/24 01/22/24 History atorvastatin 80 mg tablet 80 mg PO DAILY 01/22/24 01/22/24 History carvedilol 25 mg tablet 25 mg PO BID 01/22/24 01/22/24 History citalopram 40 mg tablet 40 mg PO .QHS 01/22/24 01/22/24 History clopidogrel 75 mg tablet 75 mg PO DAILY 01/22/24 01/22/24 History ferrous sulfate 325 mg (65 mg 325 mg PO DAILY 01/22/24 01/22/24 History iron) tablet (FeroSul) gabapentin 300 mg capsule 300 mg PO DAILY 01/22/24 01/22/24 History hydralazine 50 mg tablet 50 mg PO TID 01/22/24 01/22/24 History hydrocodone 7.5 mg-acetaminophen 1 tab PO TID PRN Chronic back pain 01/22/24 01/22/24 History 325 mg tablet nitroglycerin 0.4 mg sublingual 0.4 mg sublingual .Q5MIN PRN Chest 01/22/24 01/22/24 History tablet Pain omeprazole 40 mg capsule,delayed 40 mg PO DAILY 01/22/24 01/22/24 History release spironolactone 25 mg tablet 25 mg PO DAILY 01/22/24 01/22/24 History trazodone 100 mg tablet 100 mg PO .QHS Sleep 01/22/24 01/22/24 History Past Med/Surg History Problem List Status post left hip replacement Hematoma of left hip Chronic back pain Nausea & vomiting (Acute) Abdominal pain (Acute) Elevated troponin (Acute) Bilateral ureteral calculi (Acute) CKD (chronic kidney disease) stage 4, GFR 15-29 ml/min PVD (peripheral vascular disease) Closed fracture of head of left femur Avascular necrosis of bone of left hip (Acute) Left hip pain Vitamin D deficiency Glenohumeral arthritis TIA (transient ischemic attack) Rotator cuff arthropathy Left knee DJD Right knee DJD Chronic kidney disease, stage III (moderate) Polyarticular joint involvement Bilateral leg pain (Acute) LUCAS (acute kidney injury) (Acute) Pedal edema (Acute) Leg pain LUCAS (acute kidney injury) Mesenteric artery stenosis Cervical stenosis of spinal canal Encounter for pre-operative examination Anemia Diverticular disease Coronary artery disease Hyperlipidemia Depression Insomnia HTN (hypertension) (Chronic) Mesenteric artery stenosis Gout (Chronic) Medical History Acute pain of left hip Hypertensive urgency Renal artery stenosis Neck pain Carotid artery stenosis Diverticular disease Surgical History History of percutaneous coronary intervention History of CEA (carotid endarterectomy) History of arthroplasty of right knee History of back surgery History of carpal tunnel surgery right H/O left cataract extraction 04/29/18-2mg IV versed given without issues History of bilateral tubal ligation History of arthroscopy chencho knee History of colonoscopy w/ polypectomy History of endoscopic sinus surgery Family History Mother Family history of early CAD Social History Smoking Status: Never smoker Second Hand Exposure: No; Do You Dip or Chew Tobacco: No; Hx Alcohol Use: No Hx Substance Use: No Preferred Language: Canadian Communication Ability: Effective Visual Impairment: No Limitations Olive Picker Required: No Beliefs That Will Affect Care: None marital status: Single Current Living Situation: Alone Other Information That Helps Us Care for You: No Feels Safe at Home: Yes Assistive Devices: Cane and Walker Review of Systems Review of Systems: At least ten systems reviewed and negative, except as noted in the HPI. Physical Exam Physical Exam: General Appearance: Laying down in bed, alert, appears slightly dry overall. No acute distress, chronically-ill appearing, conversing appropriately. Head: Normocephalic, atraumatic. Eyes: Normal inspection, PERRL, conjunctivae normal, anicteric sclerae. ENT: External ear and nose normal, mucous membranes appear somewhat dry. Neck: Normal visual inspection, trachea midline, no thyromegaly. Respiratory: Normal respiratory effort, lungs clear to auscultation, no wheeze, rales, rhonchi. No accessory muscle use. Cardiovascular: Regular rate, rhythm, no murmur, normal peripheral pulses, no BLE edema. Vessels: No JVD. Chest: Normal inspection of chest. Abdomen/GI: Normal bowel sounds, quite tender to palpation in all quadrants (but especially LLQ). Extremities/Musculoskeletal: Quite extensive hematoma in the left hip region, very bruised/swollen and extremely tender to palpation. No surrounding erythema or fluctuance. Neurologic: PERRL, EOMI, accommodation nl, no face palsy, no dysarthria, CN's II-XI grossly intact bilaterally. Psychiatric: A+Ox3, euthymic affect. Skin: No rashes, normal color, warm/dry. Hematoma present overlying left hip, as per above. Results & Data Results & Data Vital Signs (Past 12 Hours) Vital Signs Temp Pulse Resp BP Pulse Ox O2 Del Method 01/22/24 12:45 36.6 C 64 16 156/57 H 96 Room Air Laboratory Results Short CBC 01/22/24 Range/Units 13:09 WBC 9.38 (4.8-10.8) K/ul Hgb 8.7 L (12.0-16.0) g/dl Hct 28.2 L (37.0-47.0) % Plt Count 262 (130-400) K/uL BMP 01/22/24 13:09 Sodium 135 L Potassium 4.2 Chloride 103 Carbon Dioxide 20 L BUN 26 H Creatinine 1.32 H Glucose 102 H Calcium 9.5 Liver Function 01/22/24 Range/Units 13:09 Total Bilirubin 1.2 H (0.2-1.0) mg/dl AST 24 (13-39) U/L ALT 10 (7-52) U/L Alkaline Phosphatase 87 (34-104) U/L Albumin 3.6 (3.4-5.0) gm/dl Urine 01/22/24 Range/Units 15:13 Urine Color Yellow Urine Appearance Clear (Clear) Urine pH 6.5 (4.5-7.5) Ur Specific [place] 1.035 H (1.000-1.030) Urine Protein Trace H (Negative) Urine Glucose (UA) Negative (Negative) Diagnostic Findings Abdomen/Pelvis CT 01/22/24 13:59 CT SCAN OF THE ABDOMEN AND PELVIS WITH IV CONTRAST CLINICAL HISTORY: Generalized abdominal pain. Nausea and vomiting. COMPARISON STUDY: Abdominal CT dated 07/04/2022. TECHNIQUE: Following the IV administration of 70 cc of Optiray 320, CT scan of the abdomen and pelvis is performed from the lung bases to the proximal femora. Images are reviewed in the axial, sagittal, and coronal planes. IV contrast was administered without complication. A dose lowering technique was utilized adhering to the principles of ALARA. There is streak artifact from the arms which could not be elevated above the abdomen. CT DOSE: 1167.49 mGy.cm FINDINGS: Lung bases: The heart is normal in size and without pericardial effusion. There are coronary artery calcifications. A small hiatal hernia is noted. The lung bases are clear noting mild bibasilar scarring/atelectasis. Liver: The contrast-enhanced liver is normal in size, contour, and attenuation. There is no intrahepatic biliary ductal dilatation. The hepatic veins and portal veins are patent. Gallbladder: There are calcified gallstones with no CT evidence of acute cholecystitis. Spleen: Normal in size and attenuation. Pancreas: Unremarkable. Adrenal glands: Unremarkable. Kidneys: There is asymmetric cortical atrophy of the right kidney as compared to the left. No hydronephrosis is seen. There is a 6 mm calculus in the distal right ureter just above the vesicoureteral junction seen on image #252. A 10 mm calculus is noted in the distal left ureter on image #262. No upstream hydroureter is seen bilaterally. There is heterogeneous diminished enhancement of the right kidney as compared to the left. Abdominal vasculature: The abdominal aorta is normal in course and caliber noting advanced atherosclerotic calcification. A stent is noted in the superior mesenteric artery. Bowel: There is no bowel obstruction. The appendix is well-visualized and normal. Peritoneum: There is no intraperitoneal free air or abdominal ascites. Lymphadenopathy: None. Pelvic viscera: Evaluation of the pelvis is degraded by streak artifact from a left hip arthroplasty. The bladder is decompressed and grossly unremarkable. Uterus and adnexa are normal as visualized. Skeletal structures: The skeletal structures are osteopenic. Advanced spondylotic and postsurgical change is noted in the lumbar spine. A left hip arthroplasty is in place No lytic or blastic lesions are seen. Sclerotic changes noted in the sacroiliac joints. Soft tissues: There is soft tissue edema identified in the left upper thigh. There is a thick-walled pocket of complex fluid seen around the posterior left femoral shaft seen on axial image #314. This measures approximately 7 x 6 x 3.5 cm. There is a similar-appearing fluid collection in the subcutaneous soft tissues seen more superiorly overlying the left gluteal musculature on image #242. This measures approximately 6 x 6 x 5 cm. These collections closely approximated each other and may communicate. There is asymmetric atrophy of the left gluteal musculature as compared to the right. IMPRESSION: 1. There is a 6 mm calculus in the distal right ureter and a 10 mm calculus in the distal left ureter. No upstream hydroureteronephrosis is identified in either kidney. 2. Cholelithiasis. 3. There is asymmetric soft tissue edema identified in the left upper thigh with complex fluid collections overlying the left gluteal musculature and around the posterior aspect of the proximal femur. These may represent postoperative fluid collections such as seroma/hematomas. The sterility of this fluid cannot be assessed by imaging. Follow-up with patient's orthopedic surgeon is recommended. 4. Asymmetric cortical atrophy of the right kidney as compared to the left is similar to previous. 5. Additional findings as above. ACT 112: Negative or not required by law. Electronically signed by: Manan Pinto M.D. 01/22/2024 2:43 PM Medications Administered Discontinued Medications Sodium Chloride (Nss) 1,000 mls @ 999 mls/hr IV .Q1H1M ONE Stop: 01/22/24 15:34 Last Admin: 01/22/24 15:23 Dose: 999 mls/hr Documented By: CISCO Ceftriaxone Sodium (Rocephin) 2,000 mg in 50 mls @ 100 mls/hr IV NOW STA Stop: 01/22/24 15:30 Last Infusion: 01/22/24 15:55 Dose: Infused Documented By: Admin: 01/22/24 15:19 Dose: 100 mls/hr Documented By: CISCO Ioversol (Optiray 320 100ml) 70 ml IV ONCE ONE Stop: 01/22/24 14:16 Last Admin: 01/22/24 14:15 Dose: 70 ml Documented By: FEI Morphine Sulfate (Morphine Sulfate 4 Mg/Ml 1 Ml Carp\\Vial) 4 mg IV NOW STA Stop: 01/22/24 15:02 Last Admin: 01/22/24 15:19 Dose: 4 mg Documented By: CISCO Ondansetron HCl (Ondansetron Inj 2 Mg/Ml 2 Ml Vial) Confirm Administered Dose 4 mg .ROUTE .STK-MED ONE Stop: 01/22/24 13:07 Last Admin: 01/22/24 13:19 Dose: 4 mg Documented By: MÓNICA Ondansetron HCl (Ondansetron Inj 2 Mg/Ml 2 Ml Vial) 4 mg IV NOW STA Stop: 01/22/24 13:19 Last Admin: 01/22/24 13:19 Dose: Not Given Documented By: MÓNICA Ondansetron HCl (Ondansetron Inj 2 Mg/Ml 2 Ml Vial) 4 mg IV NOW STA Stop: 01/22/24 15:02 Last Admin: 01/22/24 15:18 Dose: 4 mg Documented By: CISCO ECG Additional Comments: EKG performed in the ED interpreted by myself and reveals the following: NSR w/ HR 69bpm, prolonged QT --> QT/QTc Int 560/600ms, T wave inversions in anteroinferior leads and P-R Int 174ms. Code Status & VTE Plan Code Status FULL CODE VTE Prophylaxis Plan VTE Prophylaxis will be ordered: Yes Supervising Physician Co-Signing Physician Notes I have seen and discussed the case with the collaborating advanced practitioner. I agree with the above H&P. I have reviewed and confirmed the patients medical history, the findings on physical examination, and the patients diagnosis and treatment plan with Berta LOPEZ and agree with the information documented. In short, Ms Hare is a 73 year old woman with complex history presenting for diffuse abdominal discomfort, poor appetite, nausea, vomiting. Imaging revealed 6mm in right and 10mm in left ureter, no hydroureteronephrosis. Urology aware--plan for possible intervention in am, continue gentle IVF monitoring fluid status. GENERAL APPEARANCE: AxOx4, ill appearing woman, no acute distress. HEENT: NC, AT. MMM. EOMI, clear conjunctiva, oropharynx clear. NECK: Supple without lymphadenopathy. No stiffness or restricted ROM. HEART: Normal rate and regular rhythm, normal S1/S1, no m/r/g LUNGS: CTAB, moving air well. No crackles or wheezes are heard. ABDOMEN: Soft, nontender, nondistended with good bowel sounds heard. EXTREMITIES: Without cyanosis, clubbing or edema. NEUROLOGICAL: Grossly nonfocal. Alert and oriented, moving all 4 extremities. CN not formally tested but appear grossly intact. Skin: large left ecchymosis on hip #Bilateral nephrolithiasis #LUCAS on CKD IV #Atrophic right kidney follows nephrology Dr Clark continue ctx iso bilateral stones with c/f impending obstruction Moniotr I/Os [place] v chaves for I/Os Trend BMP, avoid nephrotoxic agents Liquid diet, plan for NPO at midnight Urology aware--close monitoring, OR possible tomorrow hold spironolactone iso LUCAS, resume when able #Left hip hematoma #Chronic pain s/p left hip arthoplasty 09/2023 chronic hematoma, sow resolution still with notable discomfort/weakness hgb stable PT/OT #Prolonged QTC avoid qtc prolongating agents, repeat EKG in am #Obstructive CAD c/b STEMI s/p pLAD stent #SMA stenosis s/p stent Continue DAPT #Chronic Heart Failure with preserved EF LVEF 54% Continue amlodipine 10, coreg 25mg BID, hydralazine 50mg TID, spironolactone 25mg Appears dry, monitor fluid status with IVF #HTN goal, 140-150s continue home regimen #HLD continue statin #chronic anemia #MIKKI -stable, baseline ~8,on iron supplementation DVT scds med/tele I spent a total of 35 minutes coordinating, documenting, and providing care for this patient excluding time spent in the performance of separately billed services. All of the aforementioned completed outside of collaborating with the assigned advanced practitioner for a full treatment plan. I have reviewed the advanced practitioner's documentation, and I agree with, and take responsibility for the plan of care (2) Nausea & vomiting Vomiting type: unspecified Qualified Code(s): R11.2 - Nausea with vomiting, unspecified (3) Abdominal pain Abdominal location: unspecified location Qualified Code(s): R10.9 - Unspecified abdominal pain (6) HTN (hypertension) Hypertension type: unspecified Qualified Code(s): I10 - Essential (primary) hypertension (7) Coronary artery disease Associated angina: unspecified whether angina present Coronary Disease- Associated Artery/Lesion type: unspecified vessel or lesion type [place] vs. t ransplanted heart: [place] heart Qualified Code(s): I25.10 - Atherosclerotic heart disease of [place] coronary artery without angina pectoris (8) Hyperlipidemia Hyperlipidemia type: unspecified Qualified Code(s): E78.5 - Hyperlipidemia, unspecified (9) Anemia Anemia type: iron deficiency Iron deficiency anemia type: unspecified iron deficiency Qualified Code(s): D50.9 - Iron deficiency anemia, unspecified (10) Chronic back pain Back pain laterality: unspecified Back pain location: back pain in unspecified location Qualified Code(s): M54.9 - Dorsalgia, unspecified; G89.29 - Other chronic pain (12) Hematoma of left hip Encounter type: sequela Qualified Code(s): S70.02XS - Contusion of left hip, sequela (14) Gout Chronicity: chronic Gout etiology: unspecified cause Gout site: multiple sites Qualified Code(s): M1A.09X0 - Idiopathic chronic gout, multiple sites, without tophus (tophi) (15) Depression Depression Type: unspecified Qualified Code(s): F32.A - Depression, unspecified (16) Insomnia Insomnia type: unspecified Qualified Code(s): G47.00 - Insomnia, unspecified
[2024-01-22 15:57] LABS: Appearance Urine Clear (Clear); Bacteria Urine Automated None Seen (None Seen); Bilirubin Urine Negative (Negative); Blood Urine Negative (Negative); Color Urine Yellow; Epithelial Cell Urine Auto 0-2 /hpf (0-2); Glucose Urine UA Negative (Negative); Ketones Urine Trace (Negative); Leukocyte Esterase Urine Trace (Negative); Nitrite Urine Negative (Negative); Protein Urine Trace (Negative); RBC Urine Automated 0-2 /hpf (0-2); Specific Gravity Urine 1.035 (1.000-1.030); Urobilinogen Urine Negative (Negative); WBC Urine Automated 0-5 /hpf (0-5); pH Urine 6.5 (4.5-7.5)
[2024-01-22] MEDS ORDERED: ONDANSETRON INJ 2 MG/ML 2 ML VIAL IV PRN (17:01)
[2024-01-22] MEDS ORDERED: MAGNESIUM HYDROXIDE SUSP 30 ML UDC PO PRN (17:01)
[2024-01-22] MEDS ORDERED: POLYETHYLENE (MIRALAX) 17 GM PACK PO PRN (17:01)
[2024-01-22] MEDS ORDERED: ALUMINUM/MAGNESIUM SUSP 30 ML UDC PO PRN (17:01)
[2024-01-22] MEDS: SODIUM CHLORIDE 0.9% 1,000 ML IV SCH (17:40)
[2024-01-22] MEDS: cefTRIAXone SODIUM 2,000 MG/50 ML BAG IV SCH (21:22)
[2024-01-22] MEDS: HYDROCODONE/ACETAMINOPHEN 7.5/325MG TAB PO PRN (22:51)
[2024-01-22] MEDS: carvediloL 25 MG TAB PO SCH (22:52)
[2024-01-22] MEDS: hydrALAZINE TAB 50 MG TAB PO SCH (22:52)
[2024-01-22] MEDS: traZODone HCL 100 MG TAB PO SCH (22:53)
--- NOTE | 2024-01-23 05:31 | Electrocardiogram Report ---
Test Reason : Blood Pressure : / mmHG Vent. Rate : 069 BPM Atrial Rate : 069 BPM P-R Int : 174 ms QRS Dur : 082 ms QT Int : 560 ms P-R-T Axes : 046 015 -17 degrees QTc Int : 600 ms Normal sinus rhythm T wave abnormality, consider inferior ischemia T wave abnormality, consider anterior ischemia Prolonged QT Abnormal ECG When compared with ECG of 22-SEP-2023 18:37, T wave inversion now evident in Inferior leads T wave inversion now evident in Anterior leads T wave inversion less evident in Lateral leads QT has lengthened Confirmed by Nasim Acosta ([id number]) on 01/23/2024 5:31:37 AM Referred By: Confirmed By:Nasim Acosta
--- NOTE | 2024-01-23 06:58 | Urology Consultation ---
Date of Consultation January 23, 2024 Assessment & Plan (1) Bilateral ureteral calculi: (2) LUCAS (acute kidney injury): (3) HTN (hypertension): (4) Chronic back pain: (5) Hematoma of left hip: (6) TIA (transient ischemic attack): (7) Chronic kidney disease, stage III (moderate): Plan Consultation for patient with bilateral ureteral stones with history of significant stone disease. Previous history of intervention for stones. Presented with increasing pain discomfort and back and flank pain. Had been coming in waves. It was severe in nature. Patient was admitted to the hospital service. Was undergoing supportive care. Patient was made n.p.o. at midnight as a been n.p.o. on admission. Patient's vitals and labs were all reviewed. Pertinent values in the HPI and plan section. Imaging was reviewed interpreted by myself. Agree with read. Vitals were reviewed. Discussed findings extensively with patient and family. Reviewed with hospitalist physicians/team. Patient's complicated medical and surgical history was reviewed and summarized above. Patient's surgical, medical, social, and family history were all reviewed with pertinent values as above. Patient with bilateral obstructing stones with significant obstruction on the right and atrophic appearing right kidney. Has large ureteral stone on the left without signs of major obstruction. Had discussed concerns related to development of an area with complete obstruction bilaterally. Discussed concerns and issues with bleeding infection. Reviewed extensively stone findings. Imaging has been reviewed interpreted by myself. Does appear to have atrophic right kidney which is concerning with the bilateral obstructing stones. Appears to have possible small stones within the kidney. Imaging have been reviewed interpreted by myself. Patient's blood work is all reviewed. Creatinine was 1.32. White count 9.38. Hemoglobin 8.7. Updated labs from this morning are ordered but not completed. Does have LUCAS with chronic CKD. All other labs and vitals were reviewed. Patient has remained afebrile with Tmax of 36.9. Mild hypertension this morning. No tachycardia. No hypotension. Oxygen saturation is 92% on room air. Other pertinent values in the HPI or plan section. All labs and vitals have been reviewed. Discussed patient's current diagnosis as well as concerns and issues. Reviewed different options moving forward. Discussed potential risks and benefits as well as possible options and concerns. Reviewed potential surgical options and interventions. Discussed potential issues and concerns related to intervention. Risk and benefits were discussed extensively with patient and any available family. Discussed potential risks related to anesthesia. Discussed risks of bleeding infection and injury. Reviewed concerns related to possible development of severe obstructive issues of bilateral stones and development of an area and kidney failure. Reviewed concerns and issues moving forward. Discussed concerns related to infection. Discussed pacifically concerns related to surgical intervention. Discussed possible bleeding infection injury and other concerns and issues. Discussed burning and irritation. Discussed stent placements bilaterally. Reviewed extensively risk and benefits. Discussed options for stone treatment. Discussed options for conservative measure and maximum expulsion medical therapy and symptom controlled. Discussed ESWL. Discussed Ureteroscopy with extraction and/or laser lithotripsy. Risks and benefits were discussed. Stone free rates were also discussed as well as possibility of multiple procedures. Ureteral stents were discussed as well as post-operative issues and pain management. All questions were answered. Risks and benefits discussed at length for procedure. These include bleeding, infection, injury to surrounding tissues or organs, and risks associated with anesthesia. Patient states understanding and agrees to proceed. Will sign consent and proceed. Plan for Cystoscopy with possible bilateral ureteroscopy and stone treatment. History of Present Illness Attending Physician: Mattie Manrique MD History of Present Illness New consultation for patient with stone, discomfort, obstruction, and ill feelings. Patient developed sudden onset of pain into flank going down and radiating into groin and back in waves comes and goes. Can be severe at times. Patient has significant history of stones and had required intervention in the past. Found to have bilateral ureteral stones with possibly atrophic right kidney. Patient has been admitted was undergoing supportive care and hydration. Had eaten last evening on admission. Was not having severe fevers or chills. Did have mild LUCAS. Vitals have been stable. Discussed and reviewed patient's family history for any history of stone disease. Also, discussed patient's medical surgery history especially related to any history of urinary issues or stone disease. Patient was admitted and is undergoing observation. Allergies Allergy/AdvReac Type Severity Reaction Status Date / Time oxycodone AdvReac Severe syncope, Verified 01/22/24 16:57 low bp nickel AdvReac Intermediate rash and Verified 01/22/24 16:57 skin turns green Home Medications Medication Instructions Recorded Confirmed Type multivitamin 1 tab PO QAM #30 tabs 09/30/23 01/22/24 Rx polyethylene glycol 3350 17 gram 17 g PO DAILY 12/14/23 01/22/24 History oral powder packet (Miralax) allopurinol 300 mg tablet 300 mg PO DAILY #90 tabs 12/24/23 01/22/24 Rx amlodipine 10 mg tablet 10 mg PO DAILY #90 tabs 12/24/23 01/22/24 Rx aspirin 81 mg chewable tablet 81 mg PO DAILY 01/22/24 01/22/24 History atorvastatin 80 mg tablet 80 mg PO DAILY 01/22/24 01/22/24 History carvedilol 25 mg tablet 25 mg PO BID 01/22/24 01/22/24 History citalopram 40 mg tablet 40 mg PO .QHS 01/22/24 01/22/24 History clopidogrel 75 mg tablet 75 mg PO DAILY 01/22/24 01/22/24 History ferrous sulfate 325 mg (65 mg 325 mg PO DAILY 01/22/24 01/22/24 History iron) tablet (FeroSul) gabapentin 300 mg capsule 300 mg PO DAILY 01/22/24 01/22/24 History hydralazine 50 mg tablet 50 mg PO TID 01/22/24 01/22/24 History hydrocodone 7.5 mg-acetaminophen 1 tab PO TID PRN Chronic back pain 01/22/24 01/22/24 History 325 mg tablet nitroglycerin 0.4 mg sublingual 0.4 mg sublingual .Q5MIN PRN Chest 01/22/24 01/22/24 History tablet Pain omeprazole 40 mg capsule,delayed 40 mg PO DAILY 01/22/24 01/22/24 History release spironolactone 25 mg tablet 25 mg PO DAILY 01/22/24 01/22/24 History trazodone 100 mg tablet 100 mg PO .QHS Sleep 01/22/24 01/22/24 History Patient History Medical History Acute pain of left hip Hypertensive urgency Renal artery stenosis Neck pain Carotid artery stenosis Diverticular disease Surgical History History of percutaneous coronary intervention History of CEA (carotid endarterectomy) History of arthroplasty of right knee History of back surgery History of carpal tunnel surgery right H/O left cataract extraction 04/29/18-2mg IV versed given without issues History of bilateral tubal ligation History of arthroscopy chencho knee History of colonoscopy w/ polypectomy History of endoscopic sinus surgery Family History Mother Family history of early CAD Social History Smoking Status: Never smoker Second Hand Exposure: No; Do You Dip or Chew Tobacco: No; Hx Alcohol Use: No Hx Substance Use: No Preferred Language: [place] Communication Ability: Effective Visual Impairment: No Limitations Director Private Required: No Beliefs That Will Affect Care: None marital status: Single Current Living Situation: Alone Feels Safe at Home: Yes Assistive Devices: Cane and Walker Review of Systems Review of Systems: All systems reviewed & are unremarkable except as noted in HPI & below Physical Exam Physical Exam: General: Alert and oriented x 3 in no acute distress. HEENT: Normocephalic Atraumatic. Inspection normal. Cranial Nerves 2-12 Grossly intact. Nares are clear. Neck is supple. Normal inspection of face. Normal inspection of neck. Neurologic: No deficits on inspection. Baseline for motor function and sensory. Psychologic: Normal affect. Respiratory: Nonlabored. No use of accessory muscles. No tachypnea or dyspnea. Cardiovascular: No tachycardia Skin: [place] and Dry. No rashes or visible lesions. Extremities: Moving without issues. No motor deficits on inspection Lymphatics: No edema Abdomen: Soft Non-distended. No rebound or guarding. Results & Data Vital Signs (Past 12 Hours) Vital Signs Temp Pulse Pulse Pulse Resp BP Pulse Ox 01/23/24 03:51 36.5 C 60 18 153/52 H 92 01/22/24 22:45 36.9 C 64 18 169/57 H 92 01/22/24 22:02 65 01/22/24 20:16 36.8 C 65 18 158/57 H 92 O2 Del Method 01/23/24 03:51 Room Air 01/22/24 22:45 Room Air 01/22/24 22:02 01/22/24 20:16 Room Air PG Care Time/CCT Total # of Minutes Spent Total Time Spent with Patient: Total time spent is greater than 50% in coordination of care (as documented) at patient's floor/unit and/or counseling patient: Coding Level of Care Code 14224 INT INP/OBS CARE 3/75MIN Diagnoses Bilateral ureteral calculi N20.1 LUCAS (acute kidney injury) N17.9 HTN (hypertension) I10 Hypertension type: unspecified Chronic back pain, unspecified back location, unspecified back pain laterality M54.9; G89.29 Back pain location: back pain in unspecified location Back pain laterality: unspecified Hematoma of left hip, sequela S70.02XS Encounter type: sequela TIA (transient ischemic attack) G45.9 Chronic kidney disease, stage III (moderate) N18.30 (3) HTN (hypertension) Hypertension type: unspecified Qualified Code(s): I10 - Essential (primary) hypertension (4) Chronic back pain Back pain location: back pain in unspecified location Back pain laterality: unspecified Qualified Code(s): M54.9 - Dorsalgia, unspecified; G89.29 - Other chronic pain (5) Hematoma of left hip Encounter type: sequela Qualified Code(s): S70.02XS - Contusion of left hip, sequela
[2024-01-23] MEDS ORDERED: PROPOFOL IV EMULSION 10 MG/ML 20 ML VIAL IV ONE (07:12)
[2024-01-23] MEDS ORDERED: LIDOCAINE 2% 2 ML VIAL/AMP(20MG/ML) INFIL ONE (07:12)
[2024-01-23] MEDS ORDERED: fentaNYL citrate PF 100 MCG/2 ML VIAL ONE (07:12)
[2024-01-23] MEDS ORDERED: DEXAMETHASONE SOD INJ 4 MG/ML VIAL ONE (07:12)
[2024-01-23] MEDS ORDERED: MIDAZOLAM HCL 1 MG/ML 2ML VIAL ONE (07:12)
[2024-01-23] MEDS ORDERED: ONDANSETRON INJ 2 MG/ML 2 ML VIAL ONE (07:12)
--- NOTE | 2024-01-23 07:13 | Electrocardiogram Report ---
Test Reason : Blood Pressure : / mmHG Vent. Rate : 066 BPM Atrial Rate : 066 BPM P-R Int : 196 ms QRS Dur : 092 ms QT Int : 510 ms P-R-T Axes : 035 014 -48 degrees QTc Int : 534 ms Normal sinus rhythm Marked T wave abnormality consider anterolateral ischemia Prolonged QT Abnormal ECG When compared with ECG of 22-JAN-2024 13:13, T wave inversion more evident in Inferior leads QT has shortened Confirmed by Mannie De La Paz ([id number]) on 01/23/2024 7:13:09 AM Referred By: REFERRED SELF Confirmed By:Colin De La Paz
[2024-01-23 07:14] LABS: Hematocrit (blood only) 24.7 % (37.0-47.0); Hemoglobin 7.7 g/dl (12.0-16.0); Mean Corpuscular Hemoglobin 30.3 pg (25.0-34.0); Mean Corpuscular Hgb Conc 31.2 g/dL (32.0-36.0); Mean Corpuscular Volume 97.2 fL (80.0-100.0); Mean Platelet Volume 12.1 fL (9.4-12.4); Platelet Count 185 K/uL (130-400); RDW Coefficient of Variation 16.1 % (11.5-14.5); RDW Standard Deviation 57.5 fL (36.4-46.3); Red Blood Count 2.54 M/uL (4.20-5.40); White Blood Count 5.56 K/ul (4.8-10.8)
--- NOTE | 2024-01-23 07:22 | Anesthesiology Consultation ---
Date of Service January 23, 2024 Assessment & Plan Chart Review Chart Review: Acceptable Risk for Surgery and Patient NOT seen in Pre Admission Testing Consults Requested none recent stent to LAD on dapt. troponin being trended however denying cardiac symptoms. History Surgery Operation Date: 01/23/24 07:30 Proposed Procedures p Ureteral Stent Insertion/Removal(Bilateral) - Jose Angel Diaz, DO Height/Weight Height: 5 ft 4 in Weight: 65 kg Allergies Allergy/AdvReac Type Severity Reaction Status Date / Time oxycodone AdvReac Severe syncope, Verified 01/22/24 16:57 low bp nickel AdvReac Intermediate rash and Verified 01/22/24 16:57 skin turns green Medications Home Medications Medication Instructions Recorded Confirmed Last Taken multivitamin 1 tab PO QAM #30 tabs 09/30/23 01/22/24 Unknown polyethylene glycol 3350 17 gram 17 g PO DAILY 12/14/23 01/22/24 Unknown oral powder packet (Miralax) allopurinol 300 mg tablet 300 mg PO DAILY #90 tabs 12/24/23 01/22/24 Unknown amlodipine 10 mg tablet 10 mg PO DAILY #90 tabs 12/24/23 01/22/24 Unknown aspirin 81 mg chewable tablet 81 mg PO DAILY 01/22/24 01/22/24 Unknown atorvastatin 80 mg tablet 80 mg PO DAILY 01/22/24 01/22/24 Unknown carvedilol 25 mg tablet 25 mg PO BID 01/22/24 01/22/24 Unknown citalopram 40 mg tablet 40 mg PO .QHS 01/22/24 01/22/24 Unknown clopidogrel 75 mg tablet 75 mg PO DAILY 01/22/24 01/22/24 Unknown ferrous sulfate 325 mg (65 mg 325 mg PO DAILY 01/22/24 01/22/24 Unknown iron) tablet (FeroSul) gabapentin 300 mg capsule 300 mg PO DAILY 01/22/24 01/22/24 Unknown hydralazine 50 mg tablet 50 mg PO TID 01/22/24 01/22/24 Unknown hydrocodone 7.5 mg-acetaminophen 1 tab PO TID PRN Chronic back pain 01/22/24 01/22/24 Unknown 325 mg tablet nitroglycerin 0.4 mg sublingual 0.4 mg sublingual .Q5MIN PRN Chest 01/22/24 01/22/24 Unknown tablet Pain omeprazole 40 mg capsule,delayed 40 mg PO DAILY 01/22/24 01/22/24 Unknown release spironolactone 25 mg tablet 25 mg PO DAILY 01/22/24 01/22/24 Unknown trazodone 100 mg tablet 100 mg PO .QHS Sleep 01/22/24 01/22/24 Unknown Active Medications Generic Name Dose Route Start Last Admin Trade Name Jorge Aq PRN Reason Stop Dose Admin Hydrocodone Bitart/Acetaminophen 1 tab 01/22/24 17:12 01/22/24 22:51 Hydrocodone/Acetaminophen 7.5/325mg Tab PO 02/05/24 17:11 1 tab TID PRN Administration Chronic back pain Carvedilol 25 mg 01/22/24 21:00 01/22/24 22:52 Carvedilol 25 Mg Tab PO 02/21/24 20:59 25 mg BID JUDITH Administration Hydralazine HCl 50 mg 01/22/24 21:00 01/22/24 22:52 Hydralazine Tab 50 Mg Tab PO 02/21/24 20:59 50 mg TID JUDITH Administration Sodium Chloride 1,000 mls @ 80 mls/hr 01/22/24 17:45 01/23/24 07:13 Nss IV 02/21/24 17:44 Infused .[id number] JUDITH Infusion Ceftriaxone Sodium 2,000 mg in 50 mls @ 100 mls/hr 01/22/24 19:00 01/22/24 21:52 Rocephin IV 02/01/24 18:59 Infused Q24H JUDITH Infusion Trazodone HCl 100 mg 01/22/24 21:00 01/22/24 22:53 Trazodone Hcl 100 Mg Tab PO 02/21/24 20:59 100 mg HS JUDITH Administration Past Medical History Medical History Acute pain of left hip Hypertensive urgency Renal artery stenosis Neck pain Carotid artery stenosis Diverticular disease Past Family History Family History Mother Family history of early CAD Past Surgical History Surgical History History of percutaneous coronary intervention History of CEA (carotid endarterectomy) History of arthroplasty of right knee History of back surgery History of carpal tunnel surgery right H/O left cataract extraction 04/29/18-2mg IV versed given without issues History of bilateral tubal ligation History of arthroscopy chencho knee History of colonoscopy w/ polypectomy History of endoscopic sinus surgery Social History Smoking Status: Never smoker Do You Dip or Chew Tobacco: No Hx Alcohol Use: No Alcohol type: wine alcohol intake frequency: holidays/special occasions only Hx Substance Use: No substance use type: opiates Physical Exam Vital Signs Last Vital Signs Temp 36.5 C 01/23/24 03:51 Pulse 58 L 01/23/24 07:00 Resp 18 01/23/24 03:51 BP 153/52 H 01/23/24 03:51 Pulse Ox 92 01/23/24 03:51 O2 Del Method Room Air 01/23/24 03:51 Testing Laboratory Results 01/23/24 06:58 Urine Color Yellow 01/22/24 15:13 Urine Appearance Clear (Clear) 01/22/24 15:13 Urine pH 6.5 (4.5-7.5) 01/22/24 15:13 Ur Specific [place] 1.035 (1.000-1.030) H 01/22/24 15:13 Urine Protein Trace (Negative) H 01/22/24 15:13 Urine Glucose (UA) Negative (Negative) 01/22/24 15:13 Urine Ketones Trace (Negative) H 01/22/24 15:13 Urine Nitrite Negative (Negative) 01/22/24 15:13 Ur Leukocyte Esterase Trace (Negative) H 01/22/24 15:13 Urine WBC (Auto) 0-5 /hpf (0-5) 01/22/24 15:13 Urine RBC (Auto) 0-2 /hpf (0-2) 01/22/24 15:13 U Hyaline Cast (Auto) 3-5 /lpf (0-2) H 01/22/24 15:13 U Epithel Cells (Auto) 0-2 /hpf (0-2) 01/22/24 15:13 Urine Bacteria (Auto) None Seen (None Seen) 01/22/24 15:13 Electrocardiogram prolonged qt Echocardiogram Other Findings: + diastolic dysfunction Valvular Disease: + no significant valvular disease
[2024-01-23 07:26] LABS: BUN Creatinine Ratio 18.8 (10-20); Calcium 8.8 mg/dl (8.6-10.3); Creatinine Clr Calc Pharmacy 36.4 ml/min; Est GFR (African American) 53.2 ml/min; Est GFR (Non-African American) 45.9 ml/min; Potassium 3.8 mmol/L (3.5-5.1)
[2024-01-23] MEDS ORDERED: ATROPINE SULFATE 0.1 MG/ML 10ML SYR IV PRN (07:31)
[2024-01-23] MEDS ORDERED: fentaNYL citrate PF 100 MCG/2 ML VIAL IV PRN (07:31)
[2024-01-23] MEDS ORDERED: ePHEDrine sulfate 50 MG/ML AMP IV PRN (07:31)
[2024-01-23 07:46] LABS: Ferritin 128.1 ng/ml (8-388)
[2024-01-23 07:52] LABS: Folate (Folic Acid),Ser orPlas 8.05 ng/ml (>5.38)
[2024-01-23] MEDS ORDERED: VASOPRESSIN 20 UNIT/ML VIAL ONE ×2 (07:55→08:14)
--- NOTE | 2024-01-23 08:01 | Hospitalist Progress Note ---
Date of Service January 23, 2024 Assessment & Plan (1) Bilateral ureteral calculi: (2) Nausea & vomiting: (3) Abdominal pain: Plan: Radha Hare is a 73y/o F with PMHx of dyslipidemia, idiopathic chronic gout of multiple sites without tophus, allergic rhinitis, HTN, CAD, chronic HFpEF, TIA, hx of LUCAS 12/2023 multiple gastric ulcers, vitamin B12 deficiency, CKD stage III, osteoarthritis, depression and other problems listed below who presented to the ED today for evaluation of nausea and vomiting, abdominal pain x 1 week. Of note, patient presented to [facility] on 12/29/2023 and was ultimately transferred to [facility] for treatment of NSTEMI. Patient underwent successful PCI w/ REZA placement to the proximal LAD. Patient most recently followed up with [facility] [Dr. Obie Greer] on 01/05/2024. According to his documentation, patient is used to having blood pressures in the 160s/170s and higher. At that time, he determined that she was not ready for cardiac rehabilitation due to residual ongoing weakness. Patient to remain on aspirin for life and Plavix for at least a year unless she has bleeding that would subsequently reduce the duration of Plavix per his recommendation. She is supposedly scheduled to see Melodie, a ELECTRICAL MANUFACT[employer] TECHNICIAN in that facility/institute, in the next upcoming weeks. Patient was educated on a low-sodium diet and daily weights given her heart failure history during that visit as well. Patient does follow with [facility] [Dr. Clark]. Most recent visit 01/04/2024. Appears her CKD has advanced to stage IV. According to his documentation, baseline creatinine 1.4-1.7 with EGFR 29 cc/min. She had a renal ultrasound done 06/2022 that revealed right kidney 8.7 cm (atro phic) and left kidney 10.8 cm. * Appears target SBP 140-150 due to carotid vascular disease according to his note. It is documented that SBP<130 has been associated with near syncope for this patient. * She is currently on carvedilol, amlodipine, hydralazine and spironolactone. Is taking iron supplementation daily. On ASA, Plavix therapy. EKG on admission: NSR w/ HR 69bpm, prolonged QT --> QT/QTc Int 560/600ms, T wave inversions in anteroinferior leads and P-R Int 174ms. -Repeat EKG this AM QT/QTc - shortened 510/534. RBC 2.95, Hgb 8.7 and Hct 28.2 on admission. Appears baseline hemoglobin ~8 per chart review. No significant, acute electrolyte abnormalities. Sodium only slightly down at 135. Initial troponin 24.3. Creatinine 1.32 on admission, appears baseline creatinine ~1.4-1.7 as above. --> No evidence of an LUCAS at this time. UA rather unremarkable. There is presence of trace protein, ketones and leukocyte esterase. However, NO urine bacteria seen. CT of abdomen/pelvis revealed the following: * 6 mm calculus in the distal right ureter and a 10 mm calculus in the distal left ureter. NO upstream hydroureteronephrosis is identified in either kidney. * Asymmetric soft tissue edema identified in the left upper thigh with complex fluid collections overlying the left gluteal musculature and around the posterior aspect of the proximal femur. these findings may represent postoperative fluid collection such as seroma/hematomas. Follow-up with her orthopedic surgeon is recommended. * Asymmetric cortical atrophy of the right kidney as compared to the left is similar to previous imaging studies and per above. * Cholelithiasis, no evidence of cholecystitis. -Urology consulted - Dr. Diaz - continued IV Rocephin for now - pt is now s/p pCystoscopy with Bilateral Reterograde Pyleogram and Bilateral Ureteral Stent Insertion Right Ureteroscopy, Laser Destruction of Stone, Basket extraction of Stone Per urology - Will likely need hydration and monitoring. Due to acute renal injury with bilateral obstruction will likely need hydration and monitoring. Will monitor for developing fevers or other problems. Will likely need set up for treatment of left-sided stone after resolution of acute issues. Bilateral stents are in good position. Patient can likely have removal of catheter tomorrow morning for trial of void to see if patient is able to go back to spontaneous voiding. Will plan for follow-up in approximately 1 week to discuss potential treatment of left stone - gentle IVF in place, given HFpEF history, potential for fluid overload. --> Closely monitor I&Os -Bowel regimen in place, daily Miralax BOLT MAN --> Will continue this regimen while hospitalized. -Repeated EKG this AM to monitor/check for any changes in QT/QTc, avoid nephrotoxic medications. -Will proceed w/ PRN IV Phenergan given evidence of prolonged QT/QTc on admission. --> AVOID QT/QTc prolonging agents. -PRN IV Tylenol for mild pain, PRN PO hydrocodone-acetaminophen for moderate pain and PRN IV Dilaudid for severe pain. Repeat CBC, BMP in AM. (4) Elevated troponin: Plan: Of note, patient presented to [facility] on 12/29/2023 and was ultimately transferred to [facility] for treatment of NSTEMI. Patient underwent successful PCI w/ REZA placement to the proximal LAD. Patient follows [facility] on an outpatient basis currently. EKG performed in the ED , prolonged QT --> QT/QTc Int 560/600ms, T wave inversions in anteroinferior leads and P-R Int 174ms. -Repeat EKG this AM QT/QTc - shortened 510/534. Most recent echo performed 12/11/2023 and revealed the following: * LVEF = 65-69%, concentric LV wall thickening that is mildly increased. * Grade I LV diastolic dysfunction, mildly abnormal. Severely enlarged left atrium. * Mild aortic valve stenosis. No aortic stenosis. Mild mitral regurgitation. * Dilated proximal IVC, elevated right atrial pressure of 15mmHg. Trivial tricuspid regurgitation. -No acute ischemic changes on EKG --> troponin ~25 x3. Patient NOT complaining of any chest pain. Not likely ACS. Cont. to monitor on telemetry (5) CKD (chronic kidney disease) stage 4, GFR 15-29 ml/min: (6) HTN (hypertension): Plan: As mentioned previously: * Appears target SBP 140-150 due to carotid vascular disease according to his note. It is documented that SBP<130 has been associated with near syncope for this patient. * She is currently on carvedilol, amlodipine, hydralazine and spironolactone. -Will hold spironolactone for now, continue all other BOLT MAN anti-hypertensive medications. -Continuous cardiac monitoring in place, target SBP 140-150. -monitor on tele (7) Coronary artery disease: (8) Hyperlipidemia: Plan: -Can continue BOLT MAN atorvastatin, aspirin and Plavix. (9) Anemia: Plan: RBC 2.95, Hgb 8.7 and Hct 28.2 on admission. Appears baseline hemoglobin ~8 per chart review. -Will continue BOLT MAN ferrous sulfate therapy while admitted. - continues to be iron deficient, will consider IV iron suppl. - folate and vit B12 - normal levels (10) Chronic back pain: (11) Left hip pain: (12) Hematoma of left hip: (13) Status post left hip replacement: Plan: Per HPI: States that she has a lot of pain in her left hip s/p total left hip arthroplasty for tx of avascular necrosis [09/25/2023 w/ Dr. Jamie lemons @ [facility]] due to an ongoing hematoma in that region, which she states has gotten progressively worse and more painful. Patient reports she has been seen for this hematoma, but denies any intervention at this point. Patient reports having multiple issues w/ her back for years and years. On chronic opioid therapy [hydrocodone-acetaminophen] BOLT MAN for management of her chronic back pain. PDMP reviewed, last filled 12/21/23 --> 45 pills in total. Patient reports not taking this medication on a daily basis, takes it every few days as needed. -Will continue BOLT MAN chronic opioid therapy PRN for moderate pain while admitted, PRN IV Dilaudid for severe pain as above. -Patient states this medication is administered/monitored by her PCP. (14) Gout: Plan: -Can continue BOLT MAN allopurinol therapy. (15) Depression: Plan: She received 1L NSS, 4mg IV Zofran x 3 and 4mg IV morphine in the ED. EKG performed in the ED - prolonged QT --> QT/QTc Int 560/600ms, T wave inversions in anteroinferior leads and P-R Int 174ms. -Will HOLD BOLT MAN citalopram for now given evidence of prolonged QTc. --> AVOID QT/QTc prolonging agents. -Repeat EKG this AM QT/QTc - shortened 510/534. (16) Insomnia: Plan: -Can continue BOLT MAN trazodone therapy. DVT Prophylaxis: SCDs - For now. Code Status: Full Code PCP: Karl Howe DO Dispo: Med/Surg w/ Telemetry Admission and Anticipated Discharge Date Admission Date: January 22, 2024 Subjective Pt seen in follow-up of renal stones, recent history of REZA in LAD, on aspirin Plavix, history of orthopedic surgery on her left hip and post op hematoma Currently laying in bed, she s/p urologic procedure Has some lower abdominal discomfort and overall does not feel quite well yet No chest pain or shortness of breath, RN at the bedside Discussed w/ urology - plan to monitor in hospital today and re-check renal function tmrw Review of Systems Review of Systems: All systems reviewed & are unremarkable except as noted in Subjective Physical Exam Physical Exam: GENERAL : WD/WN F in NAD, appears uncomfortable (seen just after procedure), on suppl. O2 HEENT: NC, AT. MMM. EOMI NECK: Supple HEART: Normal rate and regular rhythm, normal S1/S1, no m/r/g LUNGS: CTAB, moving air well. No crackles or wheezes are heard. ABDOMEN: Soft, tender to palp. in lower quadrants, nondistended, + bowel sounds heard. : Quintero cath w/ blood tinged urine EXTREMITIES: Without cyanosis, clubbing or edema. NEUROLOGICAL: Alert and oriented, answers appropriately, moving extremities. Skin: large left ecchymosis on hip Results & Data Results & Data Vital Signs (Past 12 Hours) Vital Signs Temp Pulse Pulse Pulse Resp BP Pulse Ox 01/23/24 07:00 58 L 01/23/24 03:51 36.5 C 60 18 153/52 H 92 01/22/24 22:45 36.9 C 64 18 169/57 H 92 01/22/24 22:02 65 01/22/24 20:16 36.8 C 65 18 158/57 H 92 O2 Del Method 01/23/24 07:00 01/23/24 03:51 Room Air 01/22/24 22:45 Room Air 01/22/24 22:02 01/22/24 20:16 Room Air Laboratory Results 01/23/24 01/22/24 01/22/24 Range/Units 06:58 19:58 17:42 WBC 5.56 (4.8-10.8) K/ul RBC 2.54 L (4.20-5.40) M/uL Hgb 7.7 L (12.0-16.0) g/dl Hct 24.7 L (37.0-47.0) % MCV 97.2 (80.0-100.0) fL MCH 30.3 (25.0-34.0) pg MCHC 31.2 L (32.0-36.0) g/dL RDW Std Deviation 57.5 H (36.4-46.3) fL RDW Coeff of [place] 16.1 H (11.5-14.5) % Plt Count 185 (130-400) K/uL MPV 12.1 (9.4-12.4) fL Immature Gran % (Auto) % Neut % (Auto) % Lymph % (Auto) % [place] % (Auto) % Eos % (Auto) % Baso % (Auto) % Neut # (Auto) (1.40-6.50) K/uL Lymph # (Auto) (1.20-3.40) K/uL [place] # (Auto) (0.11-0.59) K/uL Eos # (Auto) (0.00-0.50) K/uL Baso # (Auto) (0.00-0.20) K/uL Immature Gran # (Auto) (0.01-0.20) K/uL Sodium 139 (136-145) mmol/L Potassium 3.8 (3.5-5.1) mmol/L Chloride 109 H (98-107) mmol/L Carbon Dioxide 22 (21-32) mmol/L Anion Gap 8 (3-11) BUN 22 (6-23) mg/dl Creatinine 1.17 (0.6-1.2) mg/dl Est Cr Clr Drug Dosing 36.4 Est GFR ( Amer) 53.2 ml/min Est GFR (Non-Af Amer) 45.9 ml/min BUN/Creatinine Ratio 18.8 (10-20) Glucose 95 (70-99(Fasting)) mg/dl Calcium 8.8 (8.6-10.3) mg/dl Iron 26 L (35-150) mcg/dl TIBC 169 L (250-450) mcg/dl Unsaturated IBC 143 L (155-355) mcg/dl Transferrin % Sat 15 (15-50) % Ferritin 128.1 (8-388) ng/ml Total Bilirubin (0.2-1.0) mg/dl AST (13-39) U/L ALT (7-52) U/L Alkaline Phosphatase (34-104) U/L Troponin I High Sens 25.1 H 26.3 H (0-14) pg/ml Total Protein (6.0-8.3) gm/dl Albumin (3.4-5.0) gm/dl Globulin (2.5-4.0) gm/dl Albumin/Globulin Ratio (0.9-2) Lipase (11-82) U/L Vitamin B12 1038 H (180-914) pg/ml Folate 8.05 (>5.38) ng/ml Urine Color Urine Appearance (Clear) Urine pH (4.5-7.5) Ur Specific [place] (1.000-1.030) Urine Protein (Negative) Urine Glucose (UA) (Negative) Urine Ketones (Negative) Urine Blood (Negative) Urine Nitrite (Negative) Urine Bilirubin (Negative) Urine Urobilinogen (Negative) Ur Leukocyte Esterase (Negative) Urine WBC (Auto) (0-5) /hpf Urine RBC (Auto) (0-2) /hpf U Hyaline Cast (Auto) (0-2) /lpf U Epithel Cells (Auto) (0-2) /hpf Urine Bacteria (Auto) (None Seen) 01/22/24 01/22/24 Range/Units 15:13 13:09 WBC 9.38 (4.8-10.8) K/ul RBC 2.95 L (4.20-5.40) M/uL Hgb 8.7 L (12.0-16.0) g/dl Hct 28.2 L (37.0-47.0) % MCV 95.6 (80.0-100.0) fL MCH 29.5 (25.0-34.0) pg MCHC 30.9 L (32.0-36.0) g/dL RDW Std Deviation 55.3 H (36.4-46.3) fL RDW Coeff of [place] 15.9 H (11.5-14.5) % Plt Count 262 (130-400) K/uL MPV 12.0 (9.4-12.4) fL Immature Gran % (Auto) 0.9 % Neut % (Auto) 64.2 % Lymph % (Auto) 22.8 % [place] % (Auto) 10.6 % Eos % (Auto) 1.1 % Baso % (Auto) 0.4 % Neut # (Auto) 6.03 (1.40-6.50) K/uL Lymph # (Auto) 2.14 (1.20-3.40) K/uL [place] # (Auto) 0.99 H (0.11-0.59) K/uL Eos # (Auto) 0.10 (0.00-0.50) K/uL Baso # (Auto) 0.04 (0.00-0.20) K/uL Immature Gran # (Auto) 0.08 (0.01-0.20) K/uL Sodium 135 L (136-145) mmol/L Potassium 4.2 (3.5-5.1) mmol/L Chloride 103 (98-107) mmol/L Carbon Dioxide 20 L (21-32) mmol/L Anion Gap 12 H (3-11) BUN 26 H (6-23) mg/dl Creatinine 1.32 H (0.6-1.2) mg/dl Est Cr Clr Drug Dosing Not Reportable Est GFR ( Amer) 45.9 ml/min Est GFR (Non-Af Amer) 39.6 ml/min BUN/Creatinine Ratio 19.7 (10-20) Glucose 102 H (70-99(Fasting)) mg/dl Calcium 9.5 (8.6-10.3) mg/dl Iron (35-150) mcg/dl TIBC (250-450) mcg/dl Unsaturated IBC (155-355) mcg/dl Transferrin % Sat (15-50) % Ferritin (8-388) ng/ml Total Bilirubin 1.2 H (0.2-1.0) mg/dl AST 24 (13-39) U/L ALT 10 (7-52) U/L Alkaline Phosphatase 87 (34-104) U/L Troponin I High Sens 24.3 H (0-14) pg/ml Total Protein 6.9 (6.0-8.3) gm/dl Albumin 3.6 (3.4-5.0) gm/dl Globulin 3.3 (2.5-4.0) gm/dl Albumin/Globulin Ratio 1.1 (0.9-2) Lipase 42 (11-82) U/L Vitamin B12 (180-914) pg/ml Folate (>5.38) ng/ml Urine Color Yellow Urine Appearance Clear (Clear) Urine pH 6.5 (4.5-7.5) Ur Specific [place] 1.035 H (1.000-1.030) Urine Protein Trace H (Negative) Urine Glucose (UA) Negative (Negative) Urine Ketones Trace H (Negative) Urine Blood Negative (Negative) Urine Nitrite Negative (Negative) Urine Bilirubin Negative (Negative) Urine Urobilinogen Negative (Negative) Ur Leukocyte Esterase Trace H (Negative) Urine WBC (Auto) 0-5 (0-5) /hpf Urine RBC (Auto) 0-2 (0-2) /hpf U Hyaline Cast (Auto) 3-5 H (0-2) /lpf U Epithel Cells (Auto) 0-2 (0-2) /hpf Urine Bacteria (Auto) None Seen (None Seen) Medications Administered Current Inpatient Medications Acetaminophen (Acetaminophen 325 Mg Tab) 650 mg PO Q4H PRN PRN Reason: pain/fever Stop: 02/21/24 17:00 Hydrocodone Bitart/Acetaminophen (Hydrocodone/Acetaminophen 7.5/325mg Tab) 1 tab PO TID PRN PRN Reason: Chronic back pain Stop: 02/05/24 17:11 Last Admin: 01/22/24 22:51 Dose: 1 tab Al Hydrox/Mg Hydrox/Simethicone (Aluminum/Magnesium Susp 30 Ml Udc) 30 ml PO Q6H PRN PRN Reason: Dyspepsia Stop: 02/21/24 17:00 Allopurinol (Allopurinol 300 Mg Tab) 300 mg PO DAILY JUDITH Stop: 02/22/24 08:59 Amlodipine Besylate (Amlodipine Besylate 5 Mg Tab) 10 mg PO DAILY JUDITH Stop: 02/22/24 08:59 Aspirin (Aspirin 81 Mg Chew) 81 mg PO DAILY JUDITH Stop: 02/22/24 08:59 Atorvastatin Calcium (Atorvastatin 40 Mg Tab) 80 mg PO DAILY JUDITH Stop: 02/22/24 08:59 Atropine Sulfate (Atropine Sulfate 0.1 Mg/Ml 10ml Syr) 0.5 mg IV Q1M PRN PRN Reason: PACU Use-HR<40 &/or Bradycardi Stop: 01/23/24 15:31 Carvedilol (Carvedilol 25 Mg Tab) 25 mg PO BID JUDITH Stop: 02/21/24 20:59 Last Admin: 01/22/24 22:52 Dose: 25 mg Clopidogrel Bisulfate (Clopidogrel Bisulfate 75 Mg Tab) 75 mg PO DAILY [facility] Stop: 02/22/24 08:59 Ephedrine Sulfate (Ephedrine Sulfate 50 Mg/Ml Amp) 5 mg IV Q5M PRN PRN Reason: PACU Use Only-SBP<90 mmHg Stop: 01/23/24 15:31 Fentanyl Citrate (Fentanyl Citrate Pf 100 Mcg/2 Ml Vial) 25 mcg IV Q5M PRN PRN Reason: PACU Use Only-Pain Stop: 01/23/24 15:31 Ferrous Sulfate (Ferrous Sulfate 325 Mg Tab) 325 mg PO DAILY [facility] Stop: 02/22/24 08:59 Gabapentin (Gabapentin 300 Mg Cap) 300 mg PO DAILY [facility] Stop: 02/22/24 08:59 Hydralazine HCl (Hydralazine Tab 50 Mg Tab) 50 mg PO TID [facility] Stop: 02/21/24 20:59 Last Admin: 01/22/24 22:52 Dose: 50 mg Hydromorphone HCl (Hydromorphone Inj 0.5 Mg/0.5 Ml Syr) 0.25 mg IV Q6H PRN PRN Reason: Severe Pain (Scale 7, 8, 9,10) Stop: 02/05/24 17:17 Sodium Chloride (Nss) 1,000 mls @ 80 mls/hr IV .[id number] [facility] Stop: 02/21/24 17:44 Last Infusion: 01/23/24 07:13 Dose: Infused Promethazine HCl 6.25 mg/ (Sodium Chloride) 50.25 mls @ 201 mls/hr IV Q6H PRN PRN Reason: Nausea And Vomiting Stop: 02/21/24 17:41 Ceftriaxone Sodium (Rocephin) 2,000 mg in 50 mls @ 100 mls/hr IV Q24H [facility] Stop: 02/01/24 18:59 Last Infusion: 01/22/24 21:52 Dose: Infused Magnesium Hydroxide (Magnesium Hydroxide Susp 30 Ml Udc) 30 ml PO Q6H PRN PRN Reason: Constipation Stop: 02/21/24 17:00 Pantoprazole Sodium (Pantoprazole 40 Mg Tab) 40 mg PO DAILY [facility] Stop: 02/22/24 08:59 Polyethylene Glycol (Polyethylene (Miralax) 17 Gm Pack) 17 gm PO DAILY [facility] Stop: 02/22/24 08:59 Spironolactone (Spironolactone 25 Mg Tab) 25 mg PO DAILY JUDITH Stop: 02/22/24 08:59 Trazodone HCl (Trazodone Hcl 100 Mg Tab) 100 mg PO HS JUDITH Stop: 02/21/24 20:59 Last Admin: 01/22/24 22:53 Dose: 100 mg (2) Nausea & vomiting Vomiting type: unspecified Qualified Code(s): R11.2 - Nausea with vomiting, unspecified (3) Abdominal pain Abdominal location: unspecified location Qualified Code(s): R10.9 - Unspecified abdominal pain (6) HTN (hypertension) Hypertension type: unspecified Qualified Code(s): I10 - Essential (primary) hypertension (7) Coronary artery disease Associated angina: unspecified whether angina present Coronary Disease- Associated Artery/Lesion type: unspecified vessel or lesion type [place] vs. transplanted heart: [place] heart Qualified Code(s): I25.10 - Atherosclerotic heart disease of [place] coronary artery without angina pectoris (8) Hyperlipidemia Hyperlipidemia type: unspecified Qualified Code(s): E78.5 - Hyperlipidemia, unspecified (9) Anemia Anemia type: iron deficiency Iron deficiency anemia type: unspecified iron deficiency Qualified Code(s): D50.9 - Iron deficiency anemia, unspecified (10) Chronic back pain Back pain laterality: unspecified Back pain location: back pain in unspecified location Qualified Code(s): M54.9 - Dorsalgia, unspecified; G89.29 - Other chronic pain (12) Hematoma of left hip Encounter type: sequela Qualified Code(s): S70.02XS - Contusion of left hip, sequela (14) Gout Chronicity: chronic Gout etiology: unspecified cause Gout site: multiple sites Qualified Code(s): M1A.09X0 - Idiopathic chronic gout, multiple sites, without tophus (tophi) (15) Depression Depression Type: unspecified Qualified Code(s): F32.A - Depression, unspecified (16) Insomnia Insomnia type: unspecified Qualified Code(s): G47.00 - Insomnia, unspecified
[2024-01-23] MEDS: DIATRIZOATE MEGLUMINE 30% 100ML VIAL INSTIL ONE (08:19)
--- NOTE | 2024-01-23 08:30 | Operative Report ---
PG Post Operative Report Pre & Post Diagnosis Operation Date: 01/23/24 07:30 Pre-Op Diagnosis: Bilateral Ureteral Calculi Post-Op Diagnosis: Bilateral Ureteral Calculi I identified the patient and participated in the time-out.: Yes Procedure Operation Date: 01/23/24 07:30 Actual Procedures pCystoscopy with Bilateral Reterograde Pyleogram and Bilateral Ureteral Stent Insertion Right Ureteroscopy, Laser Destruction of Stone, Basket extraction of Stone Jose Angel Diaz, Surgeon Jose Angel Diaz, II, DO Spine Surgeon None Estimated Blood Loss 1 Findings Consistent with Post-Op Diagnosis Bilateral stones with complete obstruction of right and partial obstruction of left. No hydronephrosis on left. Stricture of distal right ureter with stone proximal to distal stricture. Right Stone destroyed to dust and small fragments and larger fragments removed. Left stone able to be bypassed and stent placed. Specimens Stone Fragments - Right Ureteral Drains 4.8 Fr x 24 Right 4.8 Fr x 26 Left Anesthesia Type General Complications none Disposition Disposition: Recovery Room Indications Patient with bothersome stones. Patient found to have bilateral obstructing stones with severe atrophy of the right kidney and obstruction and hydronephrosis. Significant risk of developing acute renal failure with complete obstruction or development of fever and chills due to obstructive issues. Risks and benefits discussed at length. Plan for urgent intervention due to bilateral renal obstruction Description of Procedure Patient was consented and brought back to the operating room. Patient was placed under anesthesia in the supine position and moved to the dorsal lithotomy position. Patient was prepped and draped in the regular sterile fashion. A time out was completed. A 30degree Cystoscope was placed into the bladder and the entire bladder was examined. The UO's were identified. Starting on the left, the UO was cannulized with a catheter and a retrograde pyelogram was completed. A wire was then placed. The retrograde pyelogram did show what appeared to be a stone within the distal ureter. There was no severe or significant hydro on the left likely partial obstruction and stone did appear to be large in the distal ureter. A small amount of debris was noted to be draining from the left kidney. No significant sign of purulence. With the wire in place, a 4.8 Fr Double J stent was placed. It was confirmed with fluoroscopy. Attention was then taken to the right, the UO was cannulized with a catheter and a retrograde pyelogram was completed. A wire was then placed. The wire had some difficulty advancing past the location of the stone in the distal ureter. Only a small amount of contrast was able to bypassed the stone itself. It did appear to have significant hydronephrosis that had developed on the right. With some manipulation the wire was able to slightly advance however would not pass well passed through where the stone was likely located. It did also appear that there was a stricture in the distal ureter just distal to the stone location. The Rigid ureteroscope was taken into the ureter. A stricture was encountered in the distal ureter with the stone just proximal likely impacted into the area of stricture. With some manipulation the stone was able to be displaced slightly. The stricture was dilated. The wire appeared to be just past where the stone was located. A laser fiber was selected and the stones were pulverized to dust and small fragments. Larger fragments were grasped and removed and sent for analysis. The entire area was once again examined. No residual large fragments or areas of concern were noted. The scope was advanced to the proximal ureter. All fragments have been removed. The area of dilation had been found to have no major injury or signs of bleeding. The scope was slowly removed with the wire left in place. Contrast was placed through the scope for a pyelogram to assist in stent placement. The wire was able to be then fully advanced up into the renal pelvis. The entire ureter was examined as the scope was slowly removed. No obstructions or other areas of concern were noted. With the wire in place, a 4.8 Fr Double J stent was placed. It was confirmed with fluoroscopy. With the stents in place, the bladder was emptied. The scope was removed. A 16 Croatian silicone catheter was then placed. The patient was cleaned, aroused from anesthesia, and transferred to the pacu in stable condition having tolerated the procedure well with no complications. I was present and participated in all aspects of the procedure. The patient will be monitored in the PACU until transferred. Will plan to transfer patient back to the floor monitor. Will likely need hydration and monitoring. Due to acute renal injury with bilateral obstruction will likely need hydration and monitoring. Will monitor for developing fevers or other problems. Will likely need set up for treatment of left-sided stone after resolution of acute issues. Bilateral stents are in good position. Patient can likely have removal of catheter tomorrow morning for trial of void to see if patient is able to go back to spontaneous voiding. Will plan for follow-up in approximately 1 week to discuss potential treatment of left stone I attest to the content of the Intraoperative Record and any orders documented therein. Any exceptions are noted below.
--- NOTE | 2024-01-23 08:34 | Fluoroscopy Report ---
INTRAOPERATIVE RADIOGRAPHS CLINICAL HISTORY: Bilateral ureteral stent placement. Fluoro time: 52 seconds Ka,r: 9.42 mGy FINDINGS: 5 spot fluoroscopic views of the abdomen are correlated with abdominal CT dated 01/22/2024. C ontrast injected into the renal pelvis bilaterally shows no significant hydronephrosis. The final yazmin ges show the proximal and distal ends of bilateral ureteral stents in appropriate position. A left hi p arthroplasty is in place. Fusion hardware is noted in the spine. IMPRESSION: Intraoperative images from bilateral ureteral stent placement as above. Electronically signed by: Manan Pinto M.D. 01/23/2024 8:32 AM
--- OUTSIDE RECORDS SUMMARY | 2024-01-23 09:01 | External Medical Summary | Summary of Care ---
Author Name Unknown Organization [facility] Address [address] [place] [address] Phone [phone] Care Team Providers Care Fence Rider Name Role Phone Karl Howe Primary Care Provider [phone] Reason for Visit * Reason Comments Outpatient Testing Encounter Details Date Type Department Care Team (Late st Contact Info) Description 01/13/2024 11:30 AM EDT Laboratory Laboratory, [facility] [address] [place] [id number] [facility], Lab [address] [place] [address] ARF (acute renal failure) ([facility]) Allergies Active Allergy Reactions Criticality Noted Date Comments Nickel Rash 08/27/2021 Oxycodone Hypotension 10/21/2017 documented as of this encounter (statuses as of 01/13/2024) Medications Medication Sig Dispensed Refills Start Date End Date Status TRAZODONE HCL 100 MG PO TABSIndications:De pressive disorder, not elsewhere classified at bedtime 30 11 02/23/2006 Active Additional Information Patient taking differently: (No route reported), Reported on 03/09/2023 atorvaSTATin (LIPITOR) 40 MG Tablet Take 1 Tablet by mouth in the morning. 07/14/2018 Active meclizine (ANTIVERT) 25 MG Tablet Take 1 Tab by mouth every 8 hours as needed for Dizziness or Nausea. 30 Tab 07/25/2018 Active omeprazole (PRILOSEC) 40 MG CPDR Take 1 Cap by mouth 2 times a day. 60 Cap 04/30/2019 Active HYDROcodone-Acetam inophen 7.5-325 MG Oral Tablet 08/15/2021 Active Naloxone HCl 4 MG/0.1ML Nasal Liquid (Narcan Nasal) Administer 1 spray into 1 nostril for suspected opioid overdose. Seek immediate medical attention. [email or web address] 1 Each 3 09/18/2023 Active Carvedilol 6.25 MG Oral Tablet (Coreg) Take 1 Tablet by mouth 2 times a day with morning and evening meals. 60 Tablet 3 12/13/2023 Active Vitamin B-12 1000 MCG Oral Tablet (Cyanocobalamin) Take 1 Tablet by mouth in the morning. 30 Tablet 3 12/14/2023 Active Ferrous Sulfate 325 (65 Fe) MG Oral Tablet (Feosol) Take 1 Tablet by mouth at noon and 1 Tablet in the evening. 60 Tablet 3 12/13/2023 Active Gabapentin 300 MG Oral Capsule (Neurontin) Take 1 Capsule by mouth in the morning. 30 Capsule 3 12/13/2023 Active Brilinta 90 MG Oral Tablet (Ticagrelor) TAKE 1 TABLET BY MOUTH IN THE MORNING AND 1 BEFORE BEDTIME 60 Tablet 12/17/2023 Active documented as of this encounter (statuses as of 01/13/2024) Active Problems Problem Noted Date Diagnosed Date B12 deficiency 12/12/2023 Bilateral lower extremity edema 12/11/2023 Transient ischemic attack 03/09/2023 UTI (urinary tract infection) 03/09/2023 Idiopathic chronic gout of multiple sites withou t tophus 07/28/2022 Stage 3a chronic kidney disease 07/28/2022 Primary osteoarthritis of both hands 07/28/2022 Primary osteoarthritis of both knees 07/28/2022 Elevated BUN 03/26/2022 Elevated serum creatinine 03/26/2022 Multiple gastric ulcers 04/30/2019 Abdominal pain 04/28/2019 Nausea, vomiting and diarrhea 04/28/2019 Acute renal failure superimp osed on stage 3a chronic kidney disease 04/28/2019 Macrocytic anemia 04/28/2019 Osteoarthritis of cervical spine with myelopathy 07/26/2018 Overview: C3-7 stenosis S/P R C4-6 RFA- Aug 2006 C3-4 subluxation w C3-4 myelomalacia Dyslipidemia, goal LDL below 70 07/14/2018 Dyslipidemia, goal to be determined 01/23/2003 Other allergic rhinitis 01/23/2003 Overview: ICD-10 update of inactive term Major depressive disorder Overview: ICD-10 update of inactive term Other disorder of menstruati on and other abnormal bleeding from female genital tract HTN, goal below 140/90 documented as of this encounter (statuses as of 01/13/2024) Resolved Problems Problem Noted Date Diagnosed Date Resolved Date Hyperkalemia 12/10/2023 12/11/2023 Moderate malnutrition 04/29/20192022 documented as of this encounter (statuses as of 01/13/2024) Immunizations Name Administration Dates Next Due COVID-19 mRNA, LNP-s, No Pre serve, 2-Dose Series (Moderna) 10/14/2020,09/09/2020 TDAP (age 10 and older)(Boostrix) 07/26/2023 documented as of this encounter Social History Tobacco Use Types Packs/Day Years Used Date Smoking Tobacco: Never Smokeless Tobacco: Never Alcohol Use Standard Drinks/Week Comments Not Currently 0 (1 standard drink = 0.6 oz pur e alcohol) glass of wine occasionally Sex and Gender Information Value Date Recorded Sex Assigned at Not on file Gender Identity Not on file Sexual Orientation Not on file Job Start Date Occupation Industry Not on file Not on file Not on file documented as of this encounter Functional Status Functional Status Response Date of Assess ment Are you deaf or do you have serious difficulty h earing? No 12/10/2023 Are you blind or do you have serious difficulty seeing, even when wearing glasses? No 12/10/2023 Do you have serious difficul ty walking or climbing stairs? (5 years old or older) Yes 12/10/2023 Do you have difficulty dress ing or bathing? (5 years old or older) No 12/10/2023 Because of a physical, menta l, or emotional condition, do you have difficulty doing errands alone such as visiting a doctor s office or shopping? (15 years old or older) No 12/10/19 Cognitive Status Response Date of Assessm ent Because of a physical, menta l, or emotional condition, do you have serious difficulty concentrating, remembering, or making decisions? (5 years old or older) No 12/10/2023 documented as of this encounter Plan of Treatment Pending Results Name Type Priority Associated Diagnoses Date /Time BASIC METABOLIC PANEL Lab STAT ARF (acute renal failure) (HCC) 01/13/2024 11:34 AM EDT Scheduled Procedures Name Priority Associated Diagnoses Date/Ti me COLONOSCOPY FLEXIBLE PROXIMA L DIAGNOSTIC Recall History of colonic polyps Health Maintenance Due Date Last Done Comments Hepatitis C Screening 11/13/1967 Cologuard 1994 Fecal Occult Blood Test 1994 Sigmoidoscopy 1994 Zoster Vaccines (1 of 2) 11/13/1999 DXA Scan 03/17/2008 03/17/2001 Pneumococcal Vaccine: 65+ Years (1 of 1 - PCV) 2014 Mammogram 02/09/2020 02/08/2019, 02/14, 02/02/2002, Additional history exists COVID-19 Vaccine (2022- season) 2023 08/25/2021, 10/14/2020, 09/09/2020 Colonoscopy 08/30/2023 08/30/2018, 08/30/2018 Colorectal Cancer Screening 08/30/2023 Influenza Vaccine (FLU shot) (Season Ended) 2024 05/27/2005 GFR 06/30/2024 12/29/2023, 11/16, 12/12/2023, Additional history exists Albumin/Creatinine Ratio 11/27/2024 11/28/2023 CKD HGB USE SMARTSET 01934 12/28/202412/28, 12/29/2023, 12/13/2023, Additional history exists CKD PHOS USE SMARTSET 49815 12/28/202412/15, 12/12/2023, 12/11/2023, Additional history exists DTaP,Tdap,and Td Vaccines (2 - Td or Tdap) 07/26/2033 07/26/2023, 03/16/2003 RETIRED - COLONOSCOPY-EVERY 5 YRS AGES 18-100 Discontinued 08/30/2018, 08/30/2018 GARDASIL-HPV IMMUNIZATION SERIES Aged Out No longer eligible based on patient's age to complete this topic Hepatitis B Aged Out No longer eligi ble based on patient's age to complete this topic MENINGOCOCCAL (MENACTRA/MENVEO) Aged Out No longer eligible based on patient's age to complete this topic documented as of this encounter Medical Devices Not on filedocumented as of this encounter Visit Diagnoses Diagnosis ARF (acute renal failure) (HCC) Acute kidney failure, unspecified documented in this encounter Advance Directives * Full Code (Latest Code Status on File) Date Activated Date Inactivated Comments 12/10/2023 4:43 PM 12/13/2023 3:49 PM This order r eflects the patients wishes and were consensually agreed upon. Question Answer Comments Discussion of Advance Directives occurred with: Patient * Full Code Date Activated Date Inactivated Comments 03/09/2023 8:57 PM 03/11/2023 9:15 PM This order r eflects the patients wishes and were consensually agreed upon. Question Answer Comments Discussion of Advance Directives occurred with: Patient * Full Code Date Activated Date Inactivated Comments 04/28/2019 11:50 AM 04/30/2019 9:43 PM This order reflects the patients wishes and were consensually agreed upon. Question Answer Comments Discussion of Advance Directives occurred with: Patient * Full Code Date Activated Date Inactivated Comments 09/25/2016 10:41 AM 09/25/2016 3:28 PM This order re flects the patients wishes and were consensually agreed upon. * No Code Status Date Activated Date Inactivated Comments 05/27/2005 12:56 PM 05/27/2005 12:56 PM Care Teams Fence Rider Relationship Specialty Start Date End Date Karl Howe DO [address] [place] [id number] PCP - General 05/17/07 documented as of this encounter
--- OUTSIDE RECORDS SUMMARY | 2024-01-23 09:01 | External Medical Summary ---
Author Name Unknown Address Unknown Organization [id number]:[facility] - [address] [place] [address] Laboratory Report Ordering Provider Test Date Status ANKIT HIGGINBOTHAM 01/13/2024 11:34:37 Final Observation Date Value Abnormality Reference (Units ) Status BUN 01/13/2024 11:34:37 15 6-20 (mg/dL) Final Creatinine 01/13/2024 11:34:37 1.2 Above high normal 0.5-1.0 (mg/dL) Final Glomerular filtration rate/1.73 sq M.predicted [Volume Rate/Area] in Serum, Plasma or Blood by Creatinine-based formula (CKD-EPI) 01/13/2024 11:34:37 47 Below low normal >=60 (mL/min) Final eGFR is calculated based on the CKD-EPI 2020 equation Sodium 01/13/2024 11:34:37 137 135-146 (m mol/L) Final Potassium 01/13/2024 11:34:37 4.0 3.5-5.1 (m mol/L) Final Cl 01/13/2024 11:34:37 103 98-107 (mm ol/L) Final CO2 01/13/2024 11:34:37 22 22-32 (mmo l/L) Final Anion gap 01/13/2024 11:34:37 12 7-15 (mmol /L) Final Glucose 01/13/2024 11:34:37 103 70-120 (mg /dL) Final Calcium 01/13/2024 11:34:37 9.5 8.4-10.2 ( mg/dL) Final Performing Location [facility] - [address] [place] [address]
--- OUTSIDE RECORDS SUMMARY | 2024-01-23 09:01 | External Medical Summary | Summary of Care ---
Author Name Unknown Organization [facility] Address [address] [place] [address] Phone [phone] Care Team Providers Care Baffle Mounter Name Role Phone Karl Howe Primary Care Provider [phone] Reason for Visit * Reason Onset Date Comments Follow Up 01/14/2024 Cardiac rehab Encounter Details Date Type Department Care Team (Late st Contact Info) Description 01/14/2024 Telephone Cardiac Rehab, [address] [address] Deann Whitley, RN Follow Up (Cardiac rehab ) Allergies Active Allergy Reactions Criticality Noted Date Comments Nickel Rash 08/27/2021 Oxycodone Hypotension 10/21/2017 documented as of this encounter (statuses as of 01/14/2024) Medications Medication Sig Dispensed Refills Start Date [...] suspected opioid overdose. Seek immediate medical attention. [email or web address] 1 Each 3 09/18/2023 Active [...] as of this encounter (statuses as of 01/14/2024) Active Problems Problem Noted Date Diagnosed Date [...] 07/26/2018 Overview: C3-7 stenosis S/P R C4-6 - Aug 2006 C3-4 subluxation w C3-4 myelomalacia Dyslipidemia, goal LDL below 70 07/14/2018 Dyslipidemia, goal to be determined 01/23/2003 Other allergic rhinitis 01/23/2003 Overview: ICD-10 update of inactive term Major depressive disorder Overview: ICD-10 update of inactive term Other disorder of menstruati on and other abnormal bleeding from female genital tract HTN, goal below 140/90 documented as of this encounter (statuses as of 01/14/2024) Resolved Problems Problem Noted Date Diagnosed Date Resolved Date Hyperkalemia 12/10/2023 12/11/2023 Moderate malnutrition 04/29/20192022 documented as of this encounter (statuses as of 01/14/2024) Immunizations Name Administration Dates Next Due COVID-19 [...] No 12/10/2023 documented as of this encounter Miscellaneous Notes * Telephone Encounter - Deann Whitley RN - 01/14/2024 1:34 PM EDT I was unable to speak with pt about his referral for outpatient cardiac rehab. Left voicemail with instructions to call back at [phone] documented in this encounter Plan of Treatment Scheduled Procedures Name Priority Associated Diagnoses Date/Ti [...] 02/14, 02/02/2002, Additional history exists COVID-19 Vaccine ( season) 2023 08/25/2021, 10/14/2020, 09/09/2020 Colonoscopy 08/30/2023 08/30/2018, 08/30/2018 Colorectal Cancer Screening 08/30/2023 Influenza Vaccine (FLU shot) (Season Ended) 2024 05/27/2005 GFR 07/15/2024 01/13/2024, 12/15, 12/13/2023, Additional history exists Albumin/Creatinine Ratio 11/27/2024 11/28/2023 CKD HGB USE SMARTSET 27093 12/28/202412/28, 12/29/2023, 12/13/2023, Additional history exists CKD PHOS USE SMARTSET 86688 12/28/202412/15, 12/12/2023, 12/11/2023, Additional history exists DTaP,Tdap,and [...] Not on filedocumented as of this encounter Advance Directives * Full Code [...] 12:56 PM 05/27/2005 12:56 PM Care Teams Baffle Mounter Relationship Specialty Start Date End Date Karl Howe DO [address] [place] [id number] PCP - General 05/17/07 documented as of this encounter
--- OUTSIDE RECORDS SUMMARY | 2024-01-23 09:01 | External Medical Summary | Continuity of Care Document ---
Author Name Unknown Organization [facility] [address] Jason Address [address] [place], [place] [id number] Encounter [facility] JOS[facility] LUISR [id number] Date(s): 01/05/24 - 01/05/24 [facility] [address], [address] [place] [address] [phone] Encounter Diagnosis Hyperlipidemia(Discharge Diagnosis) - 01/05/24 Occlusion and stenosis of bilateral carotid arteries(Discharge Diagnosis) - 01/05/24 Hypertension(Discharge Diagnosis) - 01/05/24 Coronary artery disease(Discharge Diagnosis) - 01/05/24 Chronic heart failure with preserved ejection fraction (HFpEF)(Discharge Diagnosis) - 01/05/24 CKD (chronic kidney disease) stage 3, GFR 30-59 ml/min(Discharge Diagnosis) - 01/05/24 Discharge Disposition: Home or Self Care Attending Physician: DO Greer Jason D Referring Physician: JESSICA Sutton Nathan T Allergies, Adverse Reactions, Alerts Substance Criticality Severity Reaction Reaction Severity Status Nickel rash Active oxyCODONE Hypotension Syncope Active Assessment and Plan Extracted from: Title:Cardiology Office Visit Note Author:DO Greer Jason D Date:01/05/24 1.Coronary artery disease 2.Chronic heart failure with preserved ejection fraction (HFpEF) 3.CKD (chronic kidney disease) stage 3, GFR 30-59 ml/min 4.Hyperlipidemia 5.Hypertension 6.Occlusion and stenosis of bilateral carotid arteries She is a very complex cardiovascular history. We discussed the need for aggressive risk factor modification to reduce her risk of progressive cardiovascular events. She is only 2 days out from her discharge. I recommended a complete metabolic profile, liver profile, CBC, and an iron profile in 6 weeks. Will try to drive her LDL closer to 50 Given her extensive cardiovascular history. She is not at goal we will switch her to 40 mg of Crestor and consider adding Zetia. I did not aggressively lower her blood pressure yet. She is actually been used to having blood pressures in the 160s 170s and higher. In 6 weeks I would uptitrate her antihypertensives and try to get her to goal given her cardiovascular disease and renal disease. We can switch her amlodipine over to Procardia XL. And depending on her creatinine she should be on an angiotensin receptor jeremy with close monitoring of her renal function. She is not ready for cardiac rehab but she is still weak. I discussed with the importance of a GI workup for her anemia unless 1 believes that this is purely related to the hematoma after her hip replacement surgery. She will need close monitoring of her CBC on dual antiplatelet therapy. She notes in the past she was switched to Brilinta and could not afford it. She will remain on aspirin for life and Plavix for at least a year unless she has bleeding that would cause us to reduce the duration of Plavix. She will see Melodie, our nurse practitioner, in 6 weeks. She will blood work done in 6 weeks. We also discussed a low-salt diet and daily weights and gave her heart failure education. Medications acetaminophen-HYDROcodone 325 mg-7.5 mg oral tablet Start: 05/30/19 3:12:00 PM EDT, 1 tab, PO, tid, Refills: 0, PRN: as needed for pain Start Date: 05/30/19 Status: Ordered allopurinol 300 mg oral tablet Start: 07/21/23 1:12:00 PM EST, 1 tab, PO, Daily Start Date: 07/21/23 Status: Ordered amLODIPine 10 mg oral tablet Start: 08/25/18 9:00:00 AM EST, 1 tab, PO, Daily Start Date: 08/25/18 Status: Ordered aspirin 81 mg oral tablet, chewable Start: 12/31/23 6:39:00 AM EDT, 1 tab, PO, Daily, Disp# 30 tab, Refills: 11, Pharmacy: [facility] Start Date: 12/31/23 Stop Date: 12/25/24 Status: Ordered citalopram 40 mg oral tablet Start: 08/24/18 4:54:00 PM EST, 1 tab, PO, qhs Start Date: 08/24/18 Status: Ordered Coreg 25 mg oral tablet Start: 01/05/24 10:11:00 AM EDT, 1 tab, PO, bid, Disp# 120 tab, Refills: 1, Pharmacy: [id number] Start Date: 01/05/24 Stop Date: 05/04/24 Status: Ordered FeroSul 325 mg (65 mg elemental iron) oral tablet TAKE 1 TABLET BY MOUTH AT NOON AND 1 TABLET IN THE EVENING Start Date: 12/30/23 Status: Ordered gabapentin 300 mg oral capsule Start: 07/21/23 1:13:00 PM EST, 1 cap, PO, Daily Start Date: 07/21/23 Status: Ordered hydrALAZINE 50 mg oral tablet Start: 01/03/24 8:54:00 AM EDT, 1 tab, PO, tid, Disp# 180 tab, Refills: 1, Pharmacy: [facility] Start Date: 01/03/24 Stop Date: 05/02/24 Status: Ordered Lipitor 80 mg oral tablet Start: 12/31/23 6:39:00 AM EDT, 1 tab, PO, Daily, Disp# 30 tab, Refills: 11, Pharmacy: [facility] Start Date: 12/31/23 Stop Date: 12/25/24 Status: Ordered multivitamin Start: 12/30/23 10:12:00 AM EDT, 1 tab, PO, Daily Start Date: 12/30/23 Status: Ordered nitroglycerin 0.4 mg sublingual tablet Start: 12/31/23 6:40:00 AM EDT, 1 tab, SL, q5min, Disp# 25 tab, Refills: 3, If chest pain not relieved in 5 minutes after first dose, seek immediate medical attention, PRN: Chest Pain, Pharmacy: [facility] Start Date: 12/31/23 Status: Ordered omeprazole 40 mg oral delayed release capsule Start: 12/30/23 10:11:00 AM EDT, 1 cap, PO, Daily Start Date: 12/30/23 Status: Ordered Plavix 75 mg oral tablet Start: 12/31/23 6:40:00 AM EDT, 1 tab, PO, Daily, Disp# 30 tab, Refills: 11, DO NOT STOP without talking to your button sawyer, Pharmacy: [facility] Start Date: 12/31/23 Stop Date: 12/25/24 Status: Ordered spironolactone 25 mg oral tablet Start: 01/03/24 8:55:00 AM EDT, 1 tab, PO, Daily, Disp# 60 tab, Refills: 1, Pharmacy: [facility] Start Date: 01/03/24 Stop Date: 05/02/24 Status: Ordered traZODone 100 mg oral tablet Start: 08/24/18 4:54:00 PM EST, 1 tab, PO, qhs Start Date: 08/24/18 Status: Ordered Vitamin B12 1000 mcg oral tablet Start: 12/30/23 10:11:00 AM EDT, 1 tab, PO, Daily Start Date: 12/30/23 Status: Ordered Mental Status 01/05/24 Barriers to Learning one year None evide nt Mandatory Health Literacy Documentation Yes Health Literacy Communication Barriers N ever Primary Language Maltese Problem List Condition Confirmation Course Effective Dates Status H ealth Status Informant Carotid stenosis Confirmed Active CKD (chronic kidney disease) stage 3, GFR 30-59 ml/min Confirmed Active Coronary artery disease Confirmed Active Chronic heart failure with preserved ejection fraction (HFpEF) Confirmed Active S/P carotid endarterectomy Confirmed Active Status post insertion of drug-eluting stent into left anterior descending (LAD) artery. Confirmed Active Hyperlipidemia Confirmed Active Hypertension Confirmed Active Mesenteric angina Confirmed Active Iron deficiency anemia Confirmed Active Renal artery stenosis Confirmed Active Diagnosis Diagnosis Type Effective Dates Health Status Clinical Service Informant Hyperlipidemia Discharge Diagnosis 01/05/24 Coronary artery disease Discharge Diagnosis 01/05/24 Hypertension Discharge Diagnosis 01/05/24 Chronic heart failure with preserved ejection fraction (HFpEF) Discharge Diagnosis 01/05/24 Occlusion and stenosis of bilateral carotid arteries Discharge Diagnosis 01/05/24 CKD (chronic kidney disease) stage 3, GFR 30-59 ml/min Discharge Diagnosis 01/05/24 Procedures Procedure Date Related Diagnosis Body Site Status Superior mesenteric angiogra m with contrast w/o intervention 06/20/22 Comple александр Right CEA 09/15/18 Completed Laminectomy 2009 Completed Arthroplasty of left knee Completed Arthroplasty of right knee Completed Bilateral tubal ligation Completed Carpal tunnel decompression Completed FESS - Functional endoscopic sinus surgery Completed left Cataract extraction Completed mesenteric angiogram w/o intervention Completed Nasal septoplasty Complet ed Vital Signs Most recent to oldest [Reference Range]: 1 Patient Weight 68 kg (01/05/24 9:27 AM) Heart Rate 68 bpm (01/05/24 9:27 AM) Blood Pressure 150/52mmHg (01/05/24 9:27 AM) BP Location # 1 Right Arm (01/05/24 9:27 AM) Social History Social History Type Response Smoking Status Never smoked cigaret mook Sex Female Radiology * Contributor_system, MUSE01: VERIFY, PERFORM Event Display: EKG Authored Date: Please click on link to see image. Cardiology Outpatient Note * DO Greer Jason D: PERFORM Event Display: Cardiology Outpt Note Authored Date: Primary Care Provider DO Howe Sean D Referring Provider JESSICA Sutton Nathan T Chief Complaint Post [place] [facility] History of Present Illness She is in a difficult recovery ever since her hip replacement surgery in September. She ended up with a hematoma which might be the cause of her anemia. She presented to [facility] and eventually went to [facility] with an STEMI. She obtained a percent proximal LAD lesion that was stented. She received a unit of blood. She also had diastolic heart failure (HFpEF). Additionally she had acute kidney injury. She is known to have prior episodes of acute kidney injury as well with a peak creatinine of 3.0. She has chronic dark stools due to taking iron. She sees nephrology on a regular basis. She denies any orthopnea. She sleeps in a chair regularly. She does have mild lower extremity edema butshe notes this is improved compared to before the hospital. She also notes at least 6 months or longer a lack of appetite, weight loss, and just a sense of notfeeling well. She denies any falls or syncopal episodes. She denies any orthostatic symptoms. She notes she has had blood pressures as high as 250 mmHg Review of Systems PMHX: 1. 12/2023: Type I NSTEMI with culprit lesion an 80% fibrotic stenosis of the proximal LAD successfully treated with IVUS-guided PCI using a 2.5 x 22 mm [place] drug-eluting stent 2. Cath 12/2023: Mild to moderate non-obstructive disease in the remaining coronary arteries (20% mid LMCA, 50% ostial LAD, 30% ostial circumflex, 40% mid circumflex, 20% ostial RCA, 30% proximal RCA, 40% mid RCA, and 50% distal RCA. 3. Carotid artery disease (prior right sided endarterectomy); 60-69% Left ICA stenosis 4. 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 60% Right renal artery stenosis with a small Right Kidney 6. Stage IIIa chronic kidney disease; Hx LUCAS 12/2023 and previously to CON[employer]INI[employer] MANAGER 3.0 7. hypertension 8. hyperlipidemia 9 TIA in 2022 10. Iron Deficiency Anemia 11. HFpEF -- LVEF 54%, mild LVH, Severe LAE 12. Left THR 09/2023 Physical Exam Vitals & Measurements HR:68(Monitored) BP:150/52 SpO2:94% WT:68kg WT:68.000kg(Dosing) Patient is awake alert and oriented x3and in no acute distress HEENT:2+ carotid upstrokes, no evidence of carotid bruits LUNGS:Clear to auscultation bilaterally no rales rhonchi or wheezing HEART:Regular rate and rhythmno appreciable murmurs rubs or gallops EXTREMITIES:No evidence of clubbing cyanosis or edema PSYCHIATRIC:Patient's affect appeared appropriate Assessment/Plan 1.Coronary artery disease 2.Chronic heart failure with preserved ejection fraction (HFpEF) 3.CKD (chronic kidney disease) stage 3, GFR 30-59 ml/min 4.Hyperlipidemia 5.Hypertension 6.Occlusion and stenosis of bilateral carotid arteries She is a very complex cardiovascular history. We discussed the need for aggressive risk factor modification to reduce her risk of progressive cardiovascular events. She is only 2 days out from her discharge. I recommended a complete metabolic profile, liver profile, CBC, and an iron profile in 6 weeks. Will try to drive her LDL closer to 50 Given her extensive cardiovascular history. She is not at goal we will switch her to 40 mg of Crestor and consider adding Zetia. I did not aggressively lower her blood pressure yet. She is actually been used to having blood pressures in the 160s 170s and higher. In 6 weeks I would uptitrate her antihypertensives and try toget her to goal given her cardiovascular disease and renal disease. We can switch her amlodipine over to Procardia XL. And depending on her creatinine she should be on an angiotensin receptor jeremy with close monitoring of her renal function. She is not ready for cardiac rehab but she is still weak. I discussed with the importance of a GI workup for her anemia unless 1 believes that this is purelyrelated to the hematoma after her hip replacement surgery. She will need close monitoring of her CBC on dual antiplatelet therapy. She notes in the past shewas switched to Brilinta and could not afford it. She will remain on aspirin for life and Plavix for at least a year unless she has bleeding that would cause us to reduce the duration of Plavix. She will see Melodie, our nurse practitioner, in 6 weeks. She will blood work done in 6 weeks.We also discussed a low-salt diet and daily weights and gave her heart failure education. Problem List/Past Medical History Ongoing Carotid stenosis Chronic heart failure with preserved ejection fraction (HFpEF) CKD (chronic kidney disease) stage 3, GFR 30-59 ml/min Coronary artery disease Hyperlipidemia Hypertension Iron deficiency anemia Mesenteric angina Renal artery stenosis S/P carotid endarterectomy Status post insertion of drug-eluting stent into left anterior descending (LAD) artery. Procedure/Surgical History Superior mesenteric angiogram with contrast w/o intervention| Service Date: 2Right CEA| Service Date: 09/15/2018Laminectomy| Service Date: 2009Nasal septoplastyFESS - Functional endoscopic sinus surgeryArthroplasty of left kneeleft Cataract extractionCarpal tunnel decompressionArthroplasty of right kneeBilateral tubal ligationmesenteric angiogram w/o intervention Medications acetaminophen-hydrocodone(acetaminophen-HYDROcodone 325 mg-7.5 mg oral tablet), 1 tab, PO, tid, PRN allopurinol(allopurinol 300 mg oral tablet), 300 mg= 1 tab, PO, Daily amLODIPine(amLODIPine 10 mg oral tablet), 10 mg= 1 tab, PO, Daily aspirin(aspirin 81 mg oral tablet, chewable), 81 mg= 1 tab, PO, Daily, 11 refills atorvastatin(Lipitor 80 mg oral tablet), 80 mg= 1 tab, PO, Daily, 11 refills carvedilol(Coreg 25 mg oral tablet), 25 mg= 1 tab, PO, bid, 1 refills citalopram(citalopram 40 mg oral tablet), 40 mg= 1 tab, PO, qhs clopidogrel(Plavix 75 mg oral tablet), 75 mg= 1 tab, PO, Daily, 11 refills cyanocobalamin(Vitamin B12 1000 mcg oral tablet), 1000 mcg= 1 tab, PO, Daily ferrous sulfate(FeroSul 325 mg (65 mg elemental iron) oral tablet) gabapentin(gabapentin 300 mg oral capsule), 300 mg= 1 cap, PO, Daily hydrALAZINE(hydrALAZINE 50 mg oral tablet), 50 mg= 1 tab, PO, tid, 1 refills multivitamin, 1 tab, PO, Daily nitroglycerin(nitroglycerin 0.4 mg sublingual tablet), 0.4 mg= 1 tab, SL, q5min, PRN, 3 refills omeprazole(omeprazole 40 mg oral delayed release capsule), 40 mg= 1 cap, PO, Daily spironolactone(spironolactone 25 mg oral tablet), 25 mg= 1 tab, PO, Daily, 1 refills traZODone(traZODone 100 mg oral tablet), 100 mg= 1 tab, PO, qhs Allergies Nickelrash oxyCODONEHypotension, Syncope Social History Smoking Status Never smoked cigarettes Tobacco Use:Never smoker Family History Heart attack: Mother. Heart disease: Mother. Hypertension: Mother. Peripheral vascular disease: Mother. Health Status Family Member(s) Electronic Signature on File CC: Karl Howe DO [address] [place] [id number] * Electronically Reviewed/Signed by: Obie Greer DO Author Signature Dt/Tm:01/05/2024 10:11 AM Data Entry Analystquiller operator Sujit S. [facility] [address] JDF Patient Care team information Care Team Personnel Name: JESSICA Razo Lynn Position: Physician Ekg Tech Exempt - Vasc Surg Member Role: Lifetime Relationship Address: Address: [address] [place] [address] [place] Care Team Related Persons Name: JUJU WINKLER"
--- OUTSIDE RECORDS SUMMARY | 2024-01-23 09:01 | External Medical Summary | Summary of Care ---
Author Name Unknown Organization [facility] Address [address] [place] [address] Phone [phone] Care Team Providers Care Director Of Field Coordination Name Role Phone Karl Howe Primary Care Provider [phone] Reason for Visit * Reason Onset Date Comments Cardiac Rehab 01/19/2024 referral Encounter Details Date Type Department Care Team (Late st Contact Info) Description 01/19/2024 Telephone Cardiac Rehab, [address] [address] Deann Whitley, gm mobile (referral) Allergies Active Allergy Reactions Criticality Noted Date Comments Nickel Rash 08/27/2021 Oxycodone Hypotension 10/21/2017 documented as of this encounter (statuses as of 01/19/2024) Medications Medication Sig Dispensed Refills Start Date [...] suspected opioid overdose. Seek immediate medical attention. [email or web address] Each 3 09/18/2023 Active [...] as of this encounter (statuses as of 01/19/2024) Active Problems Problem Noted Date Diagnosed Date [...] as of this encounter (statuses as of 01/19/2024) Resolved Problems Problem Noted Date Diagnosed Date Resolved Date Hyperkalemia 12/10/2023 12/11/2023 Moderate malnutrition 04/29/20192022 documented as of this encounter (statuses as of 01/19/2024) Immunizations Name Administration Dates Next Due COVID-19 [...] Miscellaneous Notes * Telephone Encounter - Deann Whitley, RN - 01/19/2024 1:46 PM EDT Spoke with pt about her referral for cardiac rehab that was received from her microfilm operator. She states that she is not interested in cardiac rehab at this time. I explained how she can call us if shechanges her mind. Pt verbalized understanding. Removed pt from list at this time. documented in this encounter Plan of Treatment [...] Ratio 11/27/2024 11/28/2023 CKD HGB USE SMARTSET 01055 12/28/202412/28, 12/29/2023, 12/13/2023, Additional history exists CKD PHOS USE SMARTSET 88591 12/28/202412/15, 12/12/2023, 12/11/2023, Additional history exists DTaP,Tdap,and [...] 12:56 PM 05/27/2005 12:56 PM Care Teams Director Of Field Coordination Relationship Specialty Start Date End Date Karl Howe DO [address] [place] [address] [place] [id number] PCP - General 05/17/07 documented as of this encounter
--- NOTE | 2024-01-23 09:28 | Anesthesiology Progress Note ---
Date of Service January 23, 2024 Anesthesia Post Procedure Vital Signs Vital Signs: Temp Pulse Pulse Pulse Resp BP BP 01/23/24 09:20 36.6 C 60 21 161/57 H 01/23/24 09:10 66 19 170/61 H 01/23/24 09:00 63 15 168/48 H 01/23/24 08:50 62 22 171/49 H 01/23/24 08:40 65 20 174/51 H 01/23/24 08:33 36.5 C 64 20 179/52 H 01/23/24 07:00 58 L 01/23/24 03:51 36.5 C 60 18 153/52 H 01/22/24 22:45 36.9 C 64 18 169/57 H 01/22/24 22:02 65 01/22/24 20:16 36.8 C 65 18 158/57 H 01/22/24 17:02 36.8 C 68 18 166/56 H 01/22/24 15:40 72 01/22/24 15:30 67 29 H 180/57 H 01/22/24 12:45 36.6 C 64 16 156/57 H Pulse Ox O2 Del Method O2 Flow Rate 01/23/24 09:20 95 Nasal Cannula 2 01/23/24 09:10 92 Room Air 01/23/24 09:00 93 Room Air 01/23/24 08:50 97 Oxymask 4 01/23/24 08:40 99 Oxymask 6 01/23/24 08:33 97 Oxymask 8 01/23/24 07:00 01/23/24 03:51 92 Room Air 01/22/24 22:45 92 Room Air 01/22/24 22:02 01/22/24 20:16 92 Room Air 01/22/24 17:02 95 Room Air 01/22/24 15:40 01/22/24 15:30 99 Room Air 01/22/24 12:45 96 Room Air Pain Intensity Generalized: Pain Intensity: 7 Transfer of Care Handoff Completed per policy Notes Mental Status: alert / awake / arousable Patient Amnestic to Procedure: Yes Nausea / Vomiting: adequately controlled Pain: adequately controlled Airway Patency, RR, SpO2: stable & adequate BP & HR: stable & adequate Hydration State: stable & adequate Anesthetic Complications: no major complications apparent and Pt Satisfied with anesthetic care
[2024-01-23] MEDS: ATORVASTATIN 40 MG TAB PO SCH (09:54)
[2024-01-23] MEDS: GABAPENTIN 300 MG CAP PO SCH (09:55)
[2024-01-23] MEDS: CLOPIDOGREL BISULFATE 75 MG TAB PO SCH (09:55)
[2024-01-23] MEDS: FERROUS SULFATE 325 MG TAB PO SCH (09:55)
[2024-01-23] MEDS: PANTOprazole 40 MG TAB PO SCH (09:56)
[2024-01-23] MEDS: ASPIRIN 81 MG CHEW PO SCH (09:56)
[2024-01-23] MEDS: amLODIPine BESYLATE 5 MG TAB PO SCH (09:56)
[2024-01-23] MEDS: allopurinoL 300 MG TAB PO SCH (09:56)
[2024-01-23] MEDS: POLYETHYLENE (MIRALAX) 17 GM PACK PO SCH (09:57)
[2024-01-23] MEDS: HYDROmorphone INJ 0.5 MG/0.5 ML SYR IV PRN (11:12)
[2024-01-23] MEDS: PROMETHAZINE HCL 6.25 MG in SODIUM CHLORIDE 0.9% 50 ML IV PRN (12:06)
[2024-01-24 08:28] LABS: Hematocrit (blood only) 22.7 % (37.0-47.0); Hemoglobin 7.1 g/dl (12.0-16.0); Mean Corpuscular Hemoglobin 30.7 pg (25.0-34.0); Mean Corpuscular Hgb Conc 31.3 g/dL (32.0-36.0); Mean Corpuscular Volume 98.3 fL (80.0-100.0); Mean Platelet Volume 11.5 fL (9.4-12.4); Platelet Count 193 K/uL (130-400); RDW Coefficient of Variation 15.6 % (11.5-14.5); RDW Standard Deviation 56.2 fL (36.4-46.3); Red Blood Count 2.31 M/uL (4.20-5.40)
[2024-01-24] MEDS: SPIRONOLACTONE 25 MG TAB PO SCH (08:46)
[2024-01-24 08:50] LABS: BUN Creatinine Ratio 18.9 (10-20); Calcium 8.5 mg/dl (8.6-10.3); Creatinine Clr Calc Pharmacy 25.2 ml/min; Est GFR (African American) 34.1 ml/min; Est GFR (Non-African American) 29.4 ml/min; Magnesium 1.7 mg/dl (1.7-2.4); Phosphorus 4.5 mg/dl (2.5-4.9); Potassium 4.3 mmol/L (3.5-5.1)
--- NOTE | 2024-01-24 10:29 | Hospitalist Progress Note ---
Date of Service January 24, 2024 Assessment & Plan (1) Bilateral ureteral calculi: (2) Nausea & vomiting: (3) Abdominal pain: Plan: Radha Hare is a 73y/o F with PMHx of dyslipidemia, idiopathic chronic gout of multiple sites without tophus, allergic rhinitis, HTN, CAD, chronic HFpEF, TIA, hx of LUCAS 12/2023 multiple gastric ulcers, vitamin B12 deficiency, CKD stage III, osteoarthritis, depression and other problems listed below who presented to the ED today for evaluation of nausea and vomiting, abdominal pain x 1 week. Of note, patient presented to [facility] on 12/29/2023 and was ultimately transferred to [facility] for treatment of NSTEMI. Patient underwent successful PCI w/ REZA placement to the proximal LAD. Patient most recently followed up with [facility] [place] [Dr. Obie Greer] on 01/05/2024. According to his documentation, patient is used to having blood pressures in the 160s/170s and higher. At that time, he determined that she was not ready for cardiac rehabilitation due to residual ongoing weakness. Patient to remain on aspirin for life and Plavix for at least a year unless she has bleeding that would subsequently reduce the duration of Plavix per his recommendation. She is supposedly scheduled to see Melodie, a RESIDENT CARE PROVIDER in that facility/institute, in the next upcoming weeks. Patient was educated on a low-sodium diet and daily weights given her heart failure history during that visit as well. Patient does follow with [facility] [Dr. Clark]. Most recent visit 01/04/2024. Appears her CKD has advanced to stage IV. According to his documentation, baseline creatinine 1.4-1.7 with EGFR 29 cc/min. She had a renal ultrasound done 06/2022 that revealed right kidney 8.7 cm (atro phic) and left kidney 10.8 cm. * Appears target SBP 140-150 due to carotid vascular disease according to his note. It is documented that SBP<130 has been associated with near syncope for this patient. * She is currently on carvedilol, amlodipine, hydralazine and spironolactone. Is taking iron supplementation daily. On ASA, Plavix therapy. EKG on admission: NSR w/ HR 69bpm, prolonged QT --> QT/QTc Int 560/600ms, T wave inversions in anteroinferior leads and P-R Int 174ms. -Repeat EKG next AM QT/QTc - shortened 510/534. RBC 2.95, Hgb 8.7 and Hct 28.2 on admission. Appears baseline hemoglobin ~8 per chart review. No significant, acute electrolyte abnormalities. Sodium only slightly down at 135. Initial troponin 24.3. Creatinine 1.32 on admission, appears baseline creatinine ~1.4-1.7 as above. --> No evidence of an LUCAS at this time. UA rather unremarkable. There is presence of trace protein, ketones and leukocyte esterase. However, NO urine bacteria seen. CT of abdomen/pelvis revealed the following: * 6 mm calculus in the distal right ureter and a 10 mm calculus in the distal left ureter. NO upstream hydroureteronephrosis is identified in either kidney. * Asymmetric soft tissue edema identified in the left upper thigh with complex fluid collections overlying the left gluteal musculature and around the posterior aspect of the proximal femur. these findings may represent postoperative fluid collection such as seroma/hematomas. Follow-up with her orthopedic surgeon is recommended. * Asymmetric cortical atrophy of the right kidney as compared to the left is similar to previous imaging studies and per above. * Cholelithiasis, no evidence of cholecystitis. -Urology consulted - Dr. Diaz - continued IV Rocephin for now - pt is now s/p pCystoscopy with Bilateral Reterograde Pyleogram and Bilateral Ureteral Stent Insertion Right Ureteroscopy, Laser Destruction of Stone, Basket extraction of Stone (on 01/23/2024) Per urology - Will likely need hydration and monitoring. Due to acute renal injury with bilateral obstruction will likely need hydration and monitoring. Will monitor for developing fevers or other problems. Will likely need set up for treatment of left-sided stone after resolution of acute issues. Bilateral stents are in good position. Patient can likely have removal of catheter tomorrow morning for trial of void to see if patient is able to go back to spontaneous voiding. Will plan for follow-up in approximately 1 week to discuss potential treatment of left stone 01/23 Cr 1.7, Quintero in place draining clear yellow urine - urine output somewhat down overnight. Pt is feeling well, no abd. pain. - gentle IVF in place, given HFpEF history, potential for fluid overload. --> Closely monitor I&Os -Will proceed w/ PRN IV Phenergan given evidence of prolonged QT/QTc on admission. --> AVOID QT/QTc prolonging agents. -PRN IV Tylenol for mild pain, PRN PO hydrocodone-acetaminophen for moderate pain and PRN IV Dilaudid for severe pain. Repeat CBC, BMP in AM. (4) Elevated troponin: Plan: Of note, patient presented to [facility] on 12/29/2023 and was ultimately transferred to [facility] for treatment of NSTEMI. Patient underwent successful PCI w/ REZA placement to the proximal LAD. Patient follows [facility] [place] on an outpatient basis currently. EKG performed in the ED , prolonged QT --> QT/QTc Int 560/600ms, T wave inversions in anteroinferior leads and P-R Int 174ms. -Repeat EKG next AM QT/QTc - shortened 510/534. Most recent echo performed 12/11/2023 and revealed the following: * LVEF = 65-69%, concentric LV wall thickening that is mildly increased. * Grade I LV diastolic dysfunction, mildly abnormal. Severely enlarged left atrium. * Mild aortic valve stenosis. No aortic stenosis. Mild mitral regurgitation. * Dilated proximal IVC, elevated right atrial pressure of 15mmHg. Trivial tricuspid regurgitation. -No acute ischemic changes on EKG --> troponin ~25 x3. Patient NOT complaining of any chest pain. Not likely ACS. Cont. to monitor on telemetry (5) CKD (chronic kidney disease) stage 4, GFR 15-29 ml/min: (6) HTN (hypertension): Plan: As mentioned previously: * Appears target SBP 140-150 due to carotid vascular disease according to his note. It is documented that SBP<130 has been associated with near syncope for this patient. * She is currently on carvedilol, amlodipine, hydralazine and spironolactone. -Will hold spironolactone for now, continue all other [employer] anti-hypertensive medications. -Continuous cardiac monitoring in place, target SBP 140-150. -monitor on tele (7) Coronary artery disease: (8) Hyperlipidemia: Plan: -Can continue [employer]SEM[employer] atorvastatin, aspirin and Plavix. (9) Anemia: Plan: RBC 2.95, Hgb 8.7 and Hct 28.2 on admission. Appears baseline hemoglobin ~8 per chart review. -Will continue TYPEWRITER ASSEMBLER ferrous sulfate therapy while admitted. - continues to be iron deficient, will give IV iron suppl. - folate and vit B12 - normal levels (10) Chronic back pain: (11) Left hip pain: (12) Hematoma of left hip: (13) Status post left hip replacement: Plan: Per HPI: States that she has a lot of pain in her left hip s/p total left hip arthroplasty for tx of avascular necrosis [09/25/2023 w/ Dr. Jamie lemons @ [facility]] due to an ongoing hematoma in that region, which she states has gotten progress ively worse and more painful. Patient reports she has been seen for this hematoma, but denies any intervention at this point. Patient reports having multiple issues w/ her back for years and years. On chronic opioid therapy [hydrocodone-acetaminophen] [employer] for management of her chronic back pain. PDMP reviewed, last filled 12/21/23 --> 45 pills in total. Patient reports not taking this medication on a daily basis, takes it every few days as needed. -Will continue [employer] chronic opioid therapy PRN for moderate pain while admitted, PRN IV Dilaudid for severe pain as above. -Patient states this medication is administered/monitored by her PCP. (14) Gout: Plan: -Can continue [employer] allopurinol therapy. (15) Depression: Plan: She received 1L NSS, 4mg IV Zofran x 3 and 4mg IV morphine in the ED. EKG performed in the ED - prolonged QT --> QT/QTc Int 560/600ms, T wave inversions in anteroinferior leads and P-R Int 174ms. -Will HOLD TYPEWRITER ASSEMBLER citalopram for now given evidence of prolonged QTc. --> AVOID QT/QTc prolonging agents. -Repeat EKG this AM QT/QTc - shortened 510/534. (16) Insomnia: Plan: -Can continue TYPEWRITER [employer]ER trazodone therapy. DVT Prophylaxis: SCDs - For now. Code Status: Full Code PCP: Karl Howe DO Dispo: Med/Surg w/ Telemetry Admission and Anticipated Discharge Date Admission Date: January 22, 2024 Subjective Pt seen in follow-up of renal stones, recent history of REZA in LAD, on aspirin Plavix, history of orthopedic surgery on her left hip and post op hematoma Currently laying in bed, she is s/p urologic procedure yesterday She is feeling much better today, denies any abd. pain No chest pain or shortness of breath Cr elevated today, Quintero still in - drains clear yellow urine Review of Systems Review of Systems: All systems reviewed & are unremarkable except as noted in Subjective Physical Exam Physical Exam: GENERAL : WD/WN F in NAD HEENT: NC, AT. MMM. EOMI NECK: Supple HEART: Normal rate and regular rhythm, normal S1/S1, no m/r/g LUNGS: CTAB, moving air well. No crackles or wheezes are heard. ABDOMEN: Soft, nontender to palp. in lower quadrants, nondistended, + bowel sounds heard. : Quintero cath w/ clear yellow urine EXTREMITIES: No LE edema, moving extremities NEUROLOGICAL: Alert and oriented, answers appropriately, moving extremities. Skin: large left ecchymosis on hip Results & Data Results & Data Vital Signs (Past 12 Hours) Vital Signs Temp Pulse Pulse Resp BP Pulse Ox O2 Del Method 01/24/24 07:01 36.6 C 65 16 160/64 H 91 Room Air 01/24/24 07:00 61 01/24/24 05:10 36.4 C L 65 20 154/49 H 92 Room Air 01/24/24 00:12 36.8 C 65 20 151/50 H 98 Room Air Laboratory Results 01/24/24 Range/Units 08:10 WBC 6.80 (4.8-10.8) K/ul RBC 2.31 L (4.20-5.40) M/uL Hgb 7.1 L (12.0-16.0) g/dl Hct 22.7 L (37.0-47.0) % MCV 98.3 (80.0-100.0) fL MCH 30.7 (25.0-34.0) pg MCHC 31.3 L (32.0-36.0) g/dL RDW Std Deviation 56.2 H (36.4-46.3) fL RDW Coeff of Geeta 15.6 H (11.5-14.5) % Plt Count 193 (130-400) K/uL MPV 11.5 (9.4-12.4) fL Sodium 138 (136-145) mmol/L Potassium 4.3 (3.5-5.1) mmol/L Chloride 109 H (98-107) mmol/L Carbon Dioxide 20 L (21-32) mmol/L Anion Gap 9 (3-11) BUN 32 H (6-23) mg/dl Creatinine 1.69 H D (0.6-1.2) mg/dl Est Cr Clr Drug Dosing 25.2 ml/min Est GFR ( Amer) 34.1 ml/min Est GFR (Non-Af Amer) 29.4 ml/min BUN/Creatinine Ratio 18.9 (10-20) Glucose 112 H (70-99(Fasting)) mg/dl Calcium 8.5 L (8.6-10.3) mg/dl Phosphorus 4.5 (2.5-4.9) mg/dl Magnesium 1.7 (1.7-2.4) mg/dl Medications Administered Current Inpatient Medications Acetaminophen (Acetaminophen 325 Mg Tab) 650 mg PO Q4H PRN PRN Reason: pain/fever Stop: 02/21/24 17:00 Hydrocodone Bitart/Acetaminophen (Hydrocodone/Acetaminophen 7.5/325mg Tab) 1 tab PO TID PRN PRN Reason: Chronic back pain Stop: 02/05/24 17:11 Last Admin: 01/23/24 20:44 Dose: 1 tab Al Hydrox/Mg Hydrox/Simethicone (Aluminum/Magnesium Susp 30 Ml Udc) 30 ml PO Q6H PRN PRN Reason: Dyspepsia Stop: 02/21/24 17:00 Allopurinol (Allopurinol 300 Mg Tab) 300 mg PO DAILY [facility] Stop: 02/22/24 08:59 Last Admin: 01/24/24 08:45 Dose: 300 mg Amlodipine Besylate (Amlodipine Besylate 5 Mg Tab) 10 mg PO DAILY [facility] Stop: 02/22/24 08:59 Last Admin: 01/24/24 08:44 Dose: 10 mg Aspirin (Aspirin 81 Mg Chew) 81 mg PO DAILY [facility] Stop: 02/22/24 08:59 Last Admin: 01/24/24 08:44 Dose: 81 mg Atorvastatin Calcium (Atorvastatin 40 Mg Tab) 80 mg PO DAILY [facility] Stop: 02/22/24 08:59 Last Admin: 01/24/24 08:44 Dose: 80 mg Carvedilol (Carvedilol 25 Mg Tab) 25 mg PO BID [facility] Stop: 02/21/24 20:59 Last Admin: 01/24/24 08:43 Dose: 25 mg Clopidogrel Bisulfate (Clopidogrel Bisulfate 75 Mg Tab) 75 mg PO DAILY [facility] Stop: 02/22/24 08:59 Last Admin: 01/24/24 08:45 Dose: 75 mg Ferrous Sulfate (Ferrous Sulfate 325 Mg Tab) 325 mg PO DAILY [facility] Stop: 02/22/24 08:59 Last Admin: 01/24/24 08:45 Dose: 325 mg Gabapentin (Gabapentin 300 Mg Cap) 300 mg PO DAILY [facility] Stop: 02/22/24 08:59 Last Admin: 01/24/24 08:45 Dose: 300 mg Hydralazine HCl (Hydralazine Tab 50 Mg Tab) 50 mg PO TID [facility] Stop: 02/21/24 20:59 Last Admin: 01/24/24 08:43 Dose: 50 mg Hydromorphone HCl (Hydromorphone Inj 0.5 Mg/0.5 Ml Syr) 0.25 mg IV Q6H PRN PRN Reason: Severe Pain (Scale 7, 8, 9,10) Stop: 02/05/24 17:17 Last Admin: 01/23/24 11:12 Dose: 0.25 mg Sodium Chloride (Nss) 1,000 mls @ 80 mls/hr IV .[id number] [facility] Stop: 02/21/24 17:44 Last Admin: 01/24/24 08:52 Dose: 80 mls/hr Promethazine HCl 6.25 mg/ (Sodium Chloride) 50.25 mls @ 201 mls/hr IV Q6H PRN PRN Reason: Nausea And Vomiting Stop: 02/21/24 17:41 Last Infusion: 01/23/24 12:31 Dose: Infused Ceftriaxone Sodium (Rocephin) 2,000 mg in 50 mls @ 100 mls/hr IV Q24H [facility] Stop: 02/01/24 18:59 Last Infusion: 01/23/24 18:46 Dose: Infused Magnesium Sulfate/Dextrose (Magnesium Sulfate / D5w) 1 gm in 100 mls @ 50 mls/hr IV ONE ONE Stop: 01/24/24 12:12 Magnesium Hydroxide (Magnesium Hydroxide Susp 30 Ml Udc) 30 ml PO Q6H PRN PRN Reason: Constipation Stop: 02/21/24 17:00 Pantoprazole Sodium (Pantoprazole 40 Mg Tab) 40 mg PO DAILY [facility] Stop: 02/22/24 08:59 Last Admin: 01/24/24 08:45 Dose: 40 mg Polyethylene Glycol (Polyethylene (Miralax) 17 Gm Pack) 17 gm PO DAILY [facility] Stop: 02/22/24 08:59 Last Admin: 01/24/24 08:46 Dose: Not Given Spironolactone (Spironolactone 25 Mg Tab) 25 mg PO DAILY [facility] Stop: 02/22/24 08:59 Last Admin: 01/24/24 08:46 Dose: 25 mg Trazodone HCl (Trazodone Hcl 100 Mg Tab) 100 mg PO HS [facility] Stop: 02/21/24 20:59 Last Admin: 01/23/24 20:45 Dose: 100 mg (2) Nausea & vomiting Vomiting type: unspecified Qualified Code(s): R11.2 - Nausea with vomiting, unspecified (3) Abdominal pain Abdominal location: unspecified location Qualified Code(s): R10.9 - Unspecified abdominal pain (6) HTN (hypertension) Hypertension type: unspecified Qualified Code(s): I10 - Essential (primary) hypertension (7) Coronary artery disease Coronary Disease-Associated Artery/Lesion type: unspecified vessel or lesion type [place] vs. transplanted heart: [place] heart Associated angina: unspecified whether angina present Qualified Code(s): I25.10 - Atherosclerotic heart disease of [place] coronary artery without angina pectoris (8) Hyperlipidemia Hyperlipidemia type: unspecified Qualified Code(s): E78.5 - Hyperlipidemia, unspecified (9) Anemia Anemia type: iron deficiency Iron deficiency anemia type: unspecified iron deficiency Qualified Code(s): D50.9 - Iron deficiency anemia, unspecified (10) Chronic back pain Back pain location: back pain in unspecified location Back pain laterality: unspecified Qualified Code(s): M54.9 - Dorsalgia, unspecified; G89.29 - Other chronic pain (12) Hematoma of left hip Encounter type: sequela Qualified Code(s): S70.02XS - Contusion of left hip, sequela (14) Gout Gout site: multiple sites Gout etiology: unspecified cause Chronicity: chronic Qualified Code(s): M1A.09X0 - Idiopathic chronic gout, multiple sites, without tophus (tophi) (15) Depression Depression Type: unspecified Qualified Code(s): F32.A - Depression, unspecified (16) Insomnia Insomnia type: unspecified Qualified Code(s): G47.00 - Insomnia, unspecified
[2024-01-24] MEDS: MAGNESIUM SULFATE / D5W 1 GM/100 ML BAG IV ONE (10:42)
[2024-01-24] MEDS: IRON SUCROSE 200 MG in 0.9 % SODIUM CHLORIDE 100 ML IV ONE (12:46)
--- NOTE | 2024-01-24 22:19 | Urology Progress Note ---
Date of Service January 24, 2024 Assessment & Plan (1) Bilateral ureteral calculi: (2) LUCAS (acute kidney injury): (3) HTN (hypertension): (4) Chronic back pain: (5) Hematoma of left hip: (6) TIA (transient ischemic attack): (7) Chronic kidney disease, stage III (moderate): Plan Patient postop day 1 status post bilateral ureteral stent placement with right ureteroscopy and stone treatment. Patient found to have bilateral obstructing stones within the ureter. Had atrophy of the right kidney. Appear to have more of a partial obstruction on the left. Stent has been placed on the left side without major issue. A small amount of drainage had been appreciated after the placement of the stent with debris. Patient underwent treatment of stone on the right due to difficulty in passing wire. Patient has not had considerable major episodes of bleeding. Has been improving over time. Did have an increase in creatinine today. All labs and vitals were reviewed. Pertinent values include the creatinine of 1.69. Please see full report for full other labs. Did not have a significant elevation of white count which remained at good range coming back today at 6.8. Patient is not having considerable major pain or other major episodes. Did have some blood in the urine after the procedure which is improved with time. Patient is undergoing supportive care. Agree with plans for continued hydration and monitoring. Bilateral stents in place. Will likely need to consider intervention on left-sided stones after adequate time for resolution of issues and monitoring of renal function over time. No major fevers or chills. No considerable changes or other problems. Continuing to monitor renal function over time with elevation seen on lab work today. Admission and Anticipated Discharge Date Admission Date: January 22, 2024 Subjective Postop from stent placement for obstruction issues. Patient has been tolerating well. Has noticed some frequency and urgency. Has not had severe pain in the back and flank. Does have occasional burning and irritation. No severe episodes or major changes. No new nausea or vomiting. Had tolerated anesthesia without major problems Review of Systems Review of Systems: All systems reviewed & are unremarkable except as noted in HPI & below Physical Exam Physical Exam: General: Alert in no acute distress. HEENT: Normocephalic Atraumatic. Inspection normal. Cranial Nerves 2-12 Grossly intact. Normal inspection of face. Normal inspection of neck. Psychologic: Normal affect. Respiratory: Nonlabored. No use of accessory muscles. No tachypnea or dyspnea. Cardiovascular: No tachycardia Skin: [employer] and Dry. No rashes or visible lesions. Extremities/Lymphatics: No edema Abdomen: Soft Non-distended. No rebound or guarding. : draining clear yellow urine Results & Data Vital Signs (Past 12 Hours) Vital Signs Temp Pulse Pulse Resp BP Pulse Ox O2 Del Method 01/24/24 19:53 37.2 C 64 20 165/58 H 92 Room Air 01/24/24 15:14 36.5 C 59 L 16 155/50 H 93 Room Air 01/24/24 14:06 66 01/24/24 11:12 36.5 C 59 L 20 144/49 H 99 Room Air PG Care Time/CCT Total # of Minutes Spent Total Time Spent with Patient: Total time spent is greater than 50% in coordination of care (as documented) at patient's floor/unit and/or counseling patient: Coding Level of Care Code 96782 SUB INP/OBS CARE 3/50MIN Diagnoses Bilateral ureteral calculi N20.1 LUCAS (acute kidney injury) N17.9 HTN (hypertension) I10 Hypertension type: unspecified Chronic back pain, unspecified back location, unspecified back pain laterality M54.9; G89.29 Back pain location: back pain in unspecified location Back pain laterality: unspecified Hematoma of left hip, sequela S70.02XS Encounter type: sequela TIA (transient ischemic attack) G45.9 Chronic kidney disease, stage III (moderate) N18.30 (3) HTN (hypertension) Hypertension type: unspecified Qualified Code(s): I10 - Essential (primary) hypertension (4) Chronic back pain Back pain location: back pain in unspecified location Back pain laterality: unspecified Qualified Code(s): M54.9 - Dorsalgia, unspecified; G89.29 - Other chronic pain (5) Hematoma of left hip Encounter type: sequela Qualified Code(s): S70.02XS - Contusion of left hip, sequela
[2024-01-24] MEDS ORDERED: Nursing to Pharmacy Communication SCH (22:30)
[2024-01-25 06:38] LABS: Hematocrit (blood only) 22.6 % (37.0-47.0); Hemoglobin 6.9 g/dl (12.0-16.0); Mean Corpuscular Hemoglobin 30.3 pg (25.0-34.0); Mean Corpuscular Hgb Conc 30.5 g/dL (32.0-36.0); Mean Corpuscular Volume 99.1 fL (80.0-100.0); Mean Platelet Volume 11.6 fL (9.4-12.4); Platelet Count 175 K/uL (130-400); RDW Coefficient of Variation 15.9 % (11.5-14.5); RDW Standard Deviation 58.4 fL (36.4-46.3); Red Blood Count 2.28 M/uL (4.20-5.40); White Blood Count 6.07 K/ul (4.8-10.8)
[2024-01-25 07:00] LABS: BUN Creatinine Ratio 18.9 (10-20); Calcium 8.5 mg/dl (8.6-10.3); Creatinine Clr Calc Pharmacy 24.4 ml/min; Est GFR (African American) 32.7 ml/min; Est GFR (Non-African American) 28.2 ml/min; Phosphorus 3.4 mg/dl (2.5-4.9); Potassium 3.7 mmol/L (3.5-5.1)
--- NOTE | 2024-01-25 07:24 | Hospitalist Progress Note ---
Date of Service January 25, 2024 Assessment & Plan (1) Bilateral ureteral calculi: (2) Nausea & vomiting: (3) Abdominal pain: Plan: Radha Hare is a 73y/o F with PMHx of dyslipidemia, idiopathic chronic gout of multiple sites without tophus, allergic rhinitis, HTN, CAD, chronic HFpEF, TIA, hx of LUCAS 12/2023 multiple gastric ulcers, vitamin B12 deficiency, CKD stage III, osteoarthritis, depression and other problems listed below who presented to the ED today for evaluation of nausea and vomiting, abdominal pain x 1 week. Of note, patient presented to [facility] on 12/29/2023 and was ultimately transferred to [facility] for treatment of NSTEMI. Patient underwent successful PCI w/ REZA placement to the proximal LAD. Patient most recently followed up with [facility] [Dr. Obie Greer] on 01/05/2024. According to his documentation, patient is used to having blood pressures in the 160s/170s and higher. At that time, he determined that she was not ready for cardiac rehabilitation due to residual ongoing weakness. Patient to remain on aspirin for life and Plavix for at least a year unless she has bleeding that would subsequently reduce the duration of Plavix per his recommendation. She is supposedly scheduled to see Melodie, a [employer] in that facility/institute, in the next upcoming weeks. Patient was educated on a low-sodium diet and daily weights given her heart failure history during that visit as well. Patient does follow with [facility] Nephrology [Dr. Clark]. Most recent visit 01/04/2024. Appears her CKD has advanced to stage IV. According to his documentation, baseline creatinine 1.4-1.7 with EGFR 29 cc/min. She had a renal ultrasound done 06/2022 that revealed right kidney 8.7 cm (atr ophic) and left kidney 10.8 cm. * Appears target SBP 140-150 due to carotid vascular disease according to his note. It is documented that SBP<130 has been associated with near syncope for this patient. * She is currently on carvedilol, amlodipine, hydralazine and spironolactone. Is taking iron supplementation daily. On ASA, Plavix therapy. EKG on admission: NSR w/ HR 69bpm, prolonged QT --> QT/QTc Int 560/600ms, T wave inversions in anteroinferior leads and P-R Int 174ms. -Repeat EKG next AM QT/QT c - shortened 510/534. RBC 2.95, Hgb 8.7 and Hct 28.2 on admission. Appears baseline hemoglobin ~8 per chart review. No significant, acute electrolyte abnormalities. Sodium only slightly down at 135. Initial troponin 24.3. Creatinine 1.32 on admission, appears baseline creatinine ~1.4-1.7 as above. --> No evidence of an LUCAS at this time. UA rather unremarkable. There is presence of trace protein, ketones and leukocyte esterase. However, NO urine bacteria seen. CT of abdomen/pelvis revealed the following: * 6 mm calculus in the distal right ureter and a 10 mm calculus in the distal left ureter. NO upstream hydroureteronephrosis is identified in either kidney. * Asymmetric soft tissue edema identified in the left upper thigh with complex fluid collections overlying the left gluteal musculature and around the posterior aspect of the proximal femur. these findings may represent postoperative fluid collection such as seroma/hematomas. Follow-up with her orthopedic surgeon is recommended. * Asymmetric cortical atrophy of the right kidney as compared to the left is similar to previous imaging studies and per above. * Cholelithiasis, no evidence of cholecystitis. -Urology consulted - Dr. Diaz - continued IV Rocephin for now - pt is now s/p pCystoscopy with Bilateral Reterograde Pyleogram and Bilateral Ureteral Stent Insertion Right Ureteroscopy, Laser Destruction of Stone, Basket extraction of Stone (on 01/23/2024) Per urology - Will likely need hydration and monitoring. Due to acute renal injury with bilateral obstruction will likely need hydration and monitoring. Will monitor for developing fevers or other problems. Will likely need set up for treatment of left-sided stone after resolution of acute issues. Bilateral stents are in good position. Patient can likely have removal of catheter tomorrow morning for trial of void to see if patient is able to go back to spontaneous voiding. Will plan for follow-up in approximately 1 week to discuss potential treatment of left stone 01/23 Cr 1.7, Quintero in place draining clear yellow urine - urine output somewhat down overnight. Pt is feeling well, no abd. pain. 01/24 Cr 1.75, urine output still lower. Cont. gentle IVF, and cont. to monitor - gentle IVF in place, given HFpEF history, potential for fluid overload. --> Closely monitor I&Os -Will proceed w/ PRN IV Phenergan given evidence of prolonged QT/QTc on admission. --> AVOID QT/QTc prolonging agents. -PRN IV Tylenol for mild pain, PRN PO hydrocodone-acetaminophen for moderate pain and PRN IV Dilaudid for severe pain. Repeat CBC, BMP in AM. (4) Elevated troponin: Plan: Of note, patient presented to [facility] on 12/29/2023 and was ultimately transferred to [facility] for treatment of NSTEMI. Patient underwent successful PCI w/ REZA placement to the proximal LAD. Patient follows / [facility] [place] on an outpatient basis currently. EKG performed in the ED , prolonged QT --> QT/QTc Int 560/600ms, T wave inversions in anteroinferior leads and P-R Int 174ms. -Repeat EKG next AM QT/QTc - shortened 510/534. Most recent echo performed 12/11/2023 and revealed the following: * LVEF = 65-69%, concentric LV wall thickening that is mildly increased. * Grade I LV diastolic dysfunction, mildly abnormal. Severely enlarged left atrium. * Mild aortic valve stenosis. No aortic stenosis. Mild mitral regurgitation. * Dilated proximal IVC, elevated right atrial pressure of 15mmHg. Trivial tricuspid regurgitation. -No acute ischemic changes on EKG --> troponin ~25 x3. Patient NOT complaining of any chest pain. Not likely ACS. Cont. to monitor on telemetry (5) CKD (chronic kidney disease) stage 4, GFR 15-29 ml/min: (6) HTN (hypertension): Plan: As mentioned previously: * Appears target SBP 140-150 due to carotid vascular disease according to his note. It is documented that SBP<130 has been associated with near syncope for this patient. * She is currently on carvedilol, amlodipine, hydralazine and spironolactone. -Will hold spironolactone for now, continue all other TIE MAN anti-hypertensive medications. -Continuous cardiac monitoring in place, target SBP 140-150. -monitor on tele (7) Coronary artery disease: (8) Hyperlipidemia: Plan: -Can continue TIE MAN atorvastatin, aspirin and Plavix. (9) Anemia: Plan: RBC 2.95, Hgb 8.7 and Hct 28.2 on admission. Appears baseline hemoglobin ~8 per chart review. -Will continue TIE MAN ferrous sulfate therapy while admitted. - continues to be iron deficient, gave IV iron suppl. - folate and vit B12 - normal levels (10) Chronic back pain: (11) Left hip pain: (12) Hematoma of left hip: (13) Status post left hip replacement: Plan: Per HPI: States that she has a lot of pain in her left hip s/p total left hip arthroplasty for tx of avascular necrosis [09/25/2023 w/ Dr. Jamie lemons @ [facility]] due to an ongoing hematoma in that region, which she states has gotten progressively worse and more painful. Patient reports she has been seen for this hematoma, but denies any intervention at this point. Patient reports having multiple issues w/ her back for years and years. On chronic opioid therapy [hydrocodone-acetaminophen] TIE MAN for management of her chronic back pain. PDMP reviewed, last filled 12/21/23 --> 45 pills in total. Patient reports not taking this medication on a daily basis, takes it every few days as needed. -Will continue TIE MAN chronic opioid therapy PRN for moderate pain while admitted, PRN IV Dilaudid for severe pain as above. -Patient states this medication is administered/monitored by her PCP. (14) Gout: Plan: -Can continue TIE MAN allopurinol therapy. (15) Depression: Plan: She received 1L NSS, 4mg IV Zofran x 3 and 4mg IV morphine in the ED. EKG performed in the ED - prolonged QT --> QT/QTc Int 560/600ms, T wave inversions in anteroinferior leads and P-R Int 174ms. -Will HOLD TIE MAN citalopram for now given evidence of prolonged QTc. --> AVOID QT/QTc prolonging agents. -Repeat EKG this AM QT/QTc - shortened 510/534. (16) Insomnia: Plan: -Can continue TIE MAN trazodone therapy. DVT Prophylaxis: SCDs Code Status: Full Code PCP: Karl Howe DO Dispo: Med/Surg w/ Telemetry Admission and Anticipated Discharge Date Admission Date: January 22, 2024 Subjective Pt seen in follow-up of renal stones, recent history of REZA in LAD, on aspirin Plavix, history of orthopedic surgery on her left hip and post op hematoma Currently laying in bed, she is s/p urologic procedure She is feeling much better today, denies any abd. pain No chest pain or shortness of breath Cr elevated and urine output decreased Review of Systems Review of Systems: All systems reviewed & are unremarkable except as noted in Subjective Physical Exam Physical Exam: GENERAL : WD/WN F in NAD HEENT: NC, AT. MMM. EOMI NECK: Supple HEART: Normal rate and regular rhythm, normal S1/S1, no m/r/g LUNGS: CTAB, moving air well. No crackles or wheezes are heard. ABDOMEN: Soft, nontender to palp. in lower quadrants, nondistended, + bowel sounds heard. : Quintero cath w/ clear yellow urine EXTREMITIES: No LE edema, moving extremities NEUROLOGICAL: Alert and oriented, answers appropriately, moving extremities. Skin: large left ecchymosis on hip Results & Data Results & Data Vital Signs (Past 12 Hours) Vital Signs Temp Pulse Pulse Resp BP Pulse Ox O2 Del Method 01/25/24 04:22 36.6 C 60 20 173/56 H 92 Room Air 01/24/24 23:51 36.7 C 62 20 163/56 H 95 Room Air 01/24/24 22:21 63 01/24/24 19:53 37.2 C 64 20 165/58 H 92 Room Air Laboratory Results 01/25/24 01/24/24 Range/Units 06:06 08:10 WBC 6.07 6.80 (4.8-10.8) K/ul RBC 2.28 L 2.31 L (4.20-5.40) M/uL Hgb 6.9 L* 7.1 L (12.0-16.0) g/dl Hct 22.6 L 22.7 L (37.0-47.0) % MCV 99.1 98.3 (80.0-100.0) fL MCH 30.3 30.7 (25.0-34.0) pg MCHC 30.5 L 31.3 L (32.0-36.0) g/dL RDW Std Deviation 58.4 H 56.2 H (36.4-46.3) fL RDW Coeff of Geeta 15.9 H 15.6 H (11.5-14.5) % Plt Count 175 193 (130-400) K/uL MPV 11.6 11.5 (9.4-12.4) fL Sodium 140 138 (136-145) mmol/L Potassium 3.7 4.3 (3.5-5.1) mmol/L Chloride 113 H 109 H (98-107) mmol/L Carbon Dioxide 20 L 20 L (21-32) mmol/L Anion Gap 7 9 (3-11) BUN 33 H 32 H (6-23) mg/dl Creatinine 1.75 H 1.69 H D (0.6-1.2) mg/dl Est Cr Clr Drug Dosing 24.4 25.2 ml/min Est GFR ( Amer) 32.7 34.1 ml/min Est GFR (Non-Af Amer) 28.2 29.4 ml/min BUN/Creatinine Ratio 18.9 18.9 (10-20) Glucose 87 112 H (70-99(Fasting)) mg/dl Calcium 8.5 L 8.5 L (8.6-10.3) mg/dl Phosphorus 3.4 D 4.5 (2.5-4.9) mg/dl Magnesium 2.0 1.7 (1.7-2.4) mg/dl Medications Administered Current Inpatient Medications Acetaminophen (Acetaminophen 325 Mg Tab) 650 mg PO Q4H PRN PRN Reason: pain/fever Stop: 02/21/24 17:00 Hydrocodone Bitart/Acetaminophen (Hydrocodone/Acetaminophen 7.5/325mg Tab) 1 tab PO TID PRN PRN Reason: Chronic back pain Stop: 02/05/24 17:11 Last Admin: 01/23/24 20:44 Dose: 1 tab Al Hydrox/Mg Hydrox/Simethicone (Aluminum/Magnesium Susp 30 Ml Udc) 30 ml PO Q6H PRN PRN Reason: Dyspepsia Stop: 02/21/24 17:00 Allopurinol (Allopurinol 300 Mg Tab) 300 mg PO DAILY [facility] Stop: 02/22/24 08:59 Last Admin: 01/24/24 08:45 Dose: 300 mg Amlodipine Besylate (Amlodipine Besylate 5 Mg Tab) 10 mg PO DAILY [facility] Stop: 02/22/24 08:59 Last Admin: 01/24/24 08:44 Dose: 10 mg Aspirin (Aspirin 81 Mg Chew) 81 mg PO DAILY [facility] Stop: 02/22/24 08:59 Last Admin: 01/24/24 08:44 Dose: 81 mg Atorvastatin Calcium (Atorvastatin 40 Mg Tab) 80 mg PO DAILY [facility] Stop: 02/22/24 08:59 Last Admin: 01/24/24 08:44 Dose: 80 mg Carvedilol (Carvedilol 25 Mg Tab) 25 mg PO BID [facility] Stop: 02/21/24 20:59 Last Admin: 01/24/24 22:03 Dose: 25 mg Clopidogrel Bisulfate (Clopidogrel Bisulfate 75 Mg Tab) 75 mg PO DAILY [facility] Stop: 02/22/24 08:59 Last Admin: 01/24/24 08:45 Dose: 75 mg Ferrous Sulfate (Ferrous Sulfate 325 Mg Tab) 325 mg PO DAILY [facility] Stop: 02/22/24 08:59 Last Admin: 01/24/24 08:45 Dose: 325 mg Gabapentin (Gabapentin 300 Mg Cap) 300 mg PO DAILY [facility] Stop: 02/22/24 08:59 Last Admin: 01/24/24 08:45 Dose: 300 mg Hydralazine HCl (Hydralazine Tab 50 Mg Tab) 50 mg PO TID [facility] Stop: 02/21/24 20:59 Last Admin: 01/24/24 22:03 Dose: 50 mg Hydromorphone HCl (Hydromorphone Inj 0.5 Mg/0.5 Ml Syr) 0.25 mg IV Q6H PRN PRN Reason: Severe Pain (Scale 7, 8, 9,10) Stop: 02/05/24 17:17 Last Admin: 01/23/24 11:12 Dose: 0.25 mg Sodium Chloride (Nss) 1,000 mls @ 80 mls/hr IV .[id number] [facility] Stop: 02/21/24 17:44 Last Admin: 01/24/24 22:18 Dose: 80 mls/hr Promethazine HCl 6.25 mg/ (Sodium Chloride) 50.25 mls @ 201 mls/hr IV Q6H PRN PRN Reason: Nausea And Vomiting Stop: 02/21/24 17:41 Last Infusion: 01/23/24 12:31 Dose: Infused Ceftriaxone Sodium (Rocephin) 2,000 mg in 50 mls @ 100 mls/hr IV Q24H [facility] Stop: 02/01/24 18:59 Last Infusion: 01/24/24 19:10 Dose: Infused Magnesium Hydroxide (Magnesium Hydroxide Susp 30 Ml Udc) 30 ml PO Q6H PRN PRN Reason: Constipation Stop: 02/21/24 17:00 Pantoprazole Sodium (Pantoprazole 40 Mg Tab) 40 mg PO DAILY [facility] Stop: 02/22/24 08:59 Last Admin: 01/24/24 08:45 Dose: 40 mg Polyethylene Glycol (Polyethylene (Miralax) 17 Gm Pack) 17 gm PO DAILY [facility] Stop: 02/22/24 08:59 Last Admin: 01/24/24 08:46 Dose: Not Given Spironolactone (Spironolactone 25 Mg Tab) 25 mg PO DAILY [facility] Stop: 02/22/24 08:59 Last Admin: 01/24/24 08:46 Dose: 25 mg Trazodone HCl (Trazodone Hcl 100 Mg Tab) 100 mg PO HS [facility] Stop: 02/21/24 20:59 Last Admin: 01/24/24 22:02 Dose: 100 mg (2) Nausea & vomiting Vomiting type: unspecified Qualified Code(s): R11.2 - Nausea with vomiting, unspecified (3) Abdominal pain Abdominal location: unspecified location Qualified Code(s): R10.9 - Unspecified abdominal pain (6) HTN (hypertension) Hypertension type: unspecified Qualified Code(s): I10 - Essential (primary) hypertension (7) Coronary artery disease Associated angina: unspecified whether angina present Coronary Disease- Associated Artery/Lesion type: unspecified vessel or lesion type [place] vs. transplanted heart: [place] heart Qualified Code(s): I25.10 - Atherosclerotic heart disease of [place] coronary artery without angina pectoris (8) Hyperlipidemia Hyperlipidemia type: unspecified Qualified Code(s): E78.5 - Hyperlipidemia, unspecified (9) Anemia Anemia type: iron deficiency Iron deficiency anemia type: unspecified iron deficiency Qualified Code(s): D50.9 - Iron deficiency anemia, unspecified (10) Chronic back pain Back pain laterality: unspecified Back pain location: back pain in unspecified location Qualified Code(s): M54.9 - Dorsalgia, unspecified; G89.29 - Other chronic pain (12) Hematoma of left hip Encounter type: sequela Qualified Code(s): S70.02XS - Contusion of left hip, sequela (14) Gout Chronicity: chronic Gout etiology: unspecified cause Gout site: multiple sites Qualified Code(s): M1A.09X0 - Idiopathic chronic gout, multiple sites, without tophus (tophi) (15) Depression Depression Type: unspecified Qualified Code(s): F32.A - Depression, unspecified (16) Insomnia Insomnia type: unspecified Qualified Code(s): G47.00 - Insomnia, unspecified
--- NOTE | 2024-01-25 17:30 | Urology Progress Note ---
Date of Service January 25, 2024 Assessment & Plan (1) Bilateral ureteral calculi: (2) LUCAS (acute kidney injury): Plan - POD #2 s/p Cystoscopy with Bilateral Retrograde Pyelogram and Bilateral Ureteral Stent Insertion, Right Ureteroscopy, Laser Destruction of Stone, Basket extraction of Stone - Tolerating the ureteral stents with minimal bother - Afebrile, hypertensive - Labs today -WBC 6.07, hemoglobin 6.9, creatinine 1.75. Continue to trend. - Quintero draining appropriately - urine is clear yellow. Continue to monitor. - No further urological intervention warranted - Continue supportive care - Maintain Quintero catheter for now. Depending on clinical course, can likely have void trial prior to discharge. - Will arrange outpatient follow-up for stone and stent management. - Urology will follow peripherally. Please call with any questions/concerns. Admission and Anticipated Discharge Date Admission Date: January 22, 2024 Subjective Patient seen at bedside this a.m. Awake, sitting in bedside chair on arrival. No acute distress. Denies fever, chills, nausea, vomiting. Tolerating the stents with minimal bother. Quintero draining clear yellow urine Review of Systems Constitutional: as per Subjective / HPI Gastrointestinal: as per Subjective / HPI Genitourinary: as per Subjective / HPI Physical Exam Constitutional: no acute distress Respiratory: no respiratory distress and no labored breathing Neurologic: moves all extremities and awake Psychiatric: A+Ox3, euthymic affect Genitourinary: Quintero intact Results & Data Vital Signs (Past 12 Hours) Vital Signs Temp Pulse Pulse Resp BP Pulse Ox O2 Del Method 01/25/24 16:12 36.7 C 64 16 166/53 H 90 Room Air 01/25/24 15:19 61 01/25/24 12:03 36.7 C 59 L 16 149/41 H 96 Room Air 01/25/24 10:39 59 L 01/25/24 07:35 Room Air 01/25/24 07:31 36.7 C 78 16 175/65 H 96 Room Air PG Care Time/CCT Total # of Minutes Spent Total Time Spent with Patient: Total time spent is greater than 50% in coordination of care (as documented) at patient's floor/unit and/or counseling patient: Coding Level of Care Code 12269 SUB INP/OBS CARE 2/35MIN Diagnoses Bilateral ureteral calculi N20.1 LUCAS (acute kidney injury) N17.9
[2024-01-26 07:24] LABS: Hematocrit (blood only) 23.1 % (37.0-47.0); Mean Corpuscular Hemoglobin 30.3 pg (25.0-34.0); Mean Corpuscular Hgb Conc 30.3 g/dL (32.0-36.0); Mean Platelet Volume 12.4 fL (9.4-12.4); Platelet Count 194 K/uL (130-400); RDW Coefficient of Variation 16.1 % (11.5-14.5); RDW Standard Deviation 59.2 fL (36.4-46.3); Red Blood Count 2.31 M/uL (4.20-5.40); White Blood Count 6.45 K/ul (4.8-10.8)
[2024-01-26 07:37] LABS: BUN Creatinine Ratio 20.3 (10-20); Calcium 8.5 mg/dl (8.6-10.3); Creatinine Clr Calc Pharmacy 27.9 ml/min; Est GFR (African American) 38.4 ml/min; Est GFR (Non-African American) 33.2 ml/min; Magnesium 1.8 mg/dl (1.7-2.4); Phosphorus 2.4 mg/dl (2.5-4.9); Potassium 3.9 mmol/L (3.5-5.1)
[2024-01-26] MEDS ORDERED: SODIUM CHLORIDE 0.9% 250 ML IV PRN (15:07)
--- NOTE | 2024-01-26 15:10 | Hospitalist Progress Note ---
Date of Service January 26, 2024 Assessment & Plan (1) Bilateral ureteral calculi: (2) Nausea & vomiting: (3) Abdominal pain: Plan: Radha Hare is a 73y/o F with PMHx of dyslipidemia, idiopathic chronic gout of multiple sites without tophus, allergic rhinitis, HTN, CAD, chronic HFpEF, TIA, hx of LUCAS 12/2023 multiple gastric ulcers, vitamin B12 deficiency, CKD stage III, osteoarthritis, depression and other problems listed below who presented to the ED today for evaluation of nausea and vomiting, abdominal pain x 1 week. Of note, patient presented to [facility] on 12/29/2023 and was ultimately transferred to [facility] for treatment of NSTEMI. Patient underwent successful PCI w/ REZA placement to the proximal LAD. Patient most recently followed up with [facility] [Dr. Obie Greer] on 01/05/2024. According to his documentation, patient is used to having blood pressures in the 160s/170s and higher. At that time, he determined that she was not ready for cardiac rehabilitation due to residual ongoing weakness. Patient to remain on aspirin for life and Plavix for at least a year unless she has bleeding that would subsequently reduce the duration of Plavix per his recommendation. She is supposedly scheduled to see Melodie, a [employer] in that facility/institute, in the next upcoming weeks. Patient was educated on a low-sodium diet and daily weights given her heart failure history during that visit as well. Patient does follow with [facility] [Dr. Clark]. Most recent visit 01/04/2024. Appears her CKD has advanced to stage IV. According to his documentation, baseline creatinine 1.4-1.7 with EGFR 29 cc/min. She had a renal ultrasound done 06/2022 that revealed right kidney 8.7 cm (atr ophic) and left kidney 10.8 cm. * Appears target SBP 140-150 due to carotid vascular disease according to his note. It is documented that SBP<130 has been associated with near syncope for this patient. * She is currently on carvedilol, amlodipine, hydralazine and spironolactone. Is taking iron supplementation daily. On ASA, Plavix therapy. EKG on admission: NSR w/ HR 69bpm, prolonged QT --> QT/QTc Int 560/600ms, T wave inversions in anteroinferior leads and P-R Int 174ms. -Repeat EKG next AM QT/QT c - shortened 510/534. RBC 2.95, Hgb 8.7 and Hct 28.2 on admission. Appears baseline hemoglobin ~8 per chart review. No significant, acute electrolyte abnormalities. Sodium only slightly down at 135. Initial troponin 24.3. Creatinine 1.32 on admission, appears baseline creatinine ~1.4-1.7 as above. --> No evidence of an LUCAS at this time. UA rather unremarkable. There is presence of trace protein, ketones and leukocyte esterase. However, NO urine bacteria seen. CT of abdomen/pelvis revealed the following: * 6 mm calculus in the distal right ureter and a 10 mm calculus in the distal left ureter. NO upstream hydroureteronephrosis is identified in either kidney. * Asymmetric soft tissue edema identified in the left upper thigh with complex fluid collections overlying the left gluteal musculature and around the posterior aspect of the proximal femur. these findings may represent postoperative fluid collection such as seroma/hematomas. Follow-up with her orthopedic surgeon is recommended. * Asymmetric cortical atrophy of the right kidney as compared to the left is similar to previous imaging studies and per above. * Cholelithiasis, no evidence of cholecystitis. -Urology consulted - Dr. Diaz - continued IV Rocephin for now - pt is now s/p pCystoscopy with Bilateral Reterograde Pyleogram and Bilateral Ureteral Stent Insertion Right Ureteroscopy, Laser Destruction of Stone, Basket extraction of Stone (on 01/23/2024) Per urology - Will likely need hydration and monitoring. Due to acute renal injury with bilateral obstruction will likely need hydration and monitoring. Will monitor for developing fevers or other problems. Will likely need set up for treatment of left-sided stone after resolution of acute issues. Bilateral stents are in good position. Patient can likely have removal of catheter tomorrow morning for trial of void to see if patient is able to go back to spontaneous voiding. Will plan for follow-up in approximately 1 week to discuss potential treatment of left stone 01/23 Cr 1.7, Quintero in place draining clear yellow urine - urine output somewhat down overnight. Pt is feeling well, no abd. pain. 01/24 Cr 1.75, urine output still lower. Cont. gentle IVF, and cont. to monitor 01/25 Cr improved to 1.5, and urine output is now improved as well - gentle IVF in place, given HFpEF history, potential for fluid overload. --> * Closely monitor I&Os -Will proceed w/ PRN IV Phenergan given evidence of prolonged QT/QTc on admission. --> AVOID QT/QTc prolonging agents. -PRN IV Tylenol for mild pain, PRN PO hydrocodone-acetaminophen for moderate pain and PRN IV Dilaudid for severe pain. Repeat CBC, BMP in AM. (4) Elevated troponin: Plan: Of note, patient presented to [facility] on 12/29/2023 and was ultimately transferred to [facility] for treatment of NSTEMI. Patient underwent successful PCI w/ REZA placement to the proximal LAD. Patient follows / [facility] on an outpatient basis currently. EKG performed in the ED , prolonged QT --> QT/QTc Int 560/600ms, T wave inversions in anteroinferior leads and P-R Int 174ms. -Repeat EKG next AM QT/QTc - shortened 510/534. Most recent echo performed 12/11/2023 and revealed the following: * LVEF = 65-69%, concentric LV wall thickening that is mildly increased. * Grade I LV diastolic dysfunction, mildly abnormal. Severely enlarged left atrium. * Mild aortic valve stenosis. No aortic stenosis. Mild mitral regurgitation. * Dilated proximal IVC, elevated right atrial pressure of 15mmHg. Trivial tricuspid regurgitation. -No acute ischemic changes on EKG --> troponin ~25 x3. Patient NOT complaining of any chest pain. Not likely ACS. Cont. to monitor on telemetry (5) CKD (chronic kidney disease) stage 4, GFR 15-29 ml/min: (6) HTN (hypertension): Plan: As mentioned previously: * Appears target SBP 140-150 due to carotid vascular disease according to his note. It is documented that SBP<130 has been associated with near syncope for this patient. * She is currently on carvedilol, amlodipine, hydralazine and spironolactone. -Will hold spironolactone for now, continue all other VASCULAR PHYSICIAN anti-hypertensive medications. -Continuous cardiac monitoring in place, target SBP 140-150. -monitor on tele (7) Coronary artery disease: (8) Hyperlipidemia: Plan: -Can continue VASCULAR PHYSICIAN atorvastatin, aspirin and Plavix. (9) Anemia: Plan: RBC 2.95, Hgb 8.7 and Hct 28.2 on admission. Appears baseline hemoglobin ~8 per chart review. -continued VASCULAR PHYSICIAN ferrous sulfate therapy while admitted. - continues to be iron deficient, gave IV iron suppl. - folate and vit B12 - normal levels - Hgb still low ~7, discussed blood transfusion - will give 1 unit of pRBC (10) Chronic back pain: (11) Left hip pain: (12) Hematoma of left hip: (13) Status post left hip replacement: Plan: Per HPI: States that she has a lot of pain in her left hip s/p total left hip arthroplasty for tx of avascular necrosis [09/25/2023 w/ Dr. Jamie lemons @ [facility]] due to an ongoing hematoma in that region, which she states has gotten progressively worse and more painful. Patient reports she has been seen for this hematoma, but denies any intervention at this point. Patient reports having multiple issues w/ her back for years and years. On chronic opioid therapy [hydrocodone-acetaminophen] VASCULAR PHYSICIAN for management of her chronic back pain. PDMP reviewed, last filled 12/21/23 --> 45 pills in total. Patient reports not taking this medication on a daily basis, takes it every few days as needed. -Will continue VASCULAR PHYSICIAN chronic opioid therapy PRN for moderate pain while admitted, PRN IV Dilaudid for severe pain as above. -Patient states this medication is administered/monitored by her PCP. (14) Gout: Plan: -Can continue VASCULAR PHYSICIAN allopurinol therapy. (15) Depression: Plan: She received 1L NSS, 4mg IV Zofran x 3 and 4mg IV morphine in the ED. EKG performed in the ED - prolonged QT --> QT/QTc Int 560/600ms, T wave inversions in anteroinferior leads and P-R Int 174ms. -Will HOLD VASCULAR PHYSICIAN citalopram for now given evidence of prolonged QTc. --> AVOID QT/QTc prolonging agents. -Repeat EKG this AM QT/QTc - shortened 510/534. (16) Insomnia: Plan: -Can continue VASCULAR PHYSICIAN trazodone therapy. DVT Prophylaxis: SCDs Code Status: Full Code PCP: Karl Howe DO Dispo: Med/Surg w/ Telemetry Admission and Anticipated Discharge Date Admission Date: January 22, 2024 Subjective Pt seen in follow-up of renal stones, recent history of REZA in LAD, on aspirin Plavix, history of orthopedic surgery on her left hip and post op hematoma Currently laying in bed, she is s/p urologic procedure She is feeling much better today, denies any abd. pain No chest pain or shortness of breath Cr now improved and urine output also is improved now. Hgb still low - discussed blood transfusion and pt agreeable. Will give 1 unit of pRBC Plan to DC tmrw Review of Systems Review of Systems: All systems reviewed & are unremarkable except as noted in Subjective Physical Exam Physical Exam: GENERAL : WD/WN F in NAD HEENT: NC, AT. MMM. EOMI NECK: Supple HEART: Normal rate and regular rhythm, normal S1/S1, no m/r/g LUNGS: CTAB, moving air well. No crackles or wheezes are heard. ABDOMEN: Soft, nontender to palp. in lower quadrants, nondistended, + bowel sounds heard. : Quintero cath w/ clear yellow urine EXTREMITIES: No LE edema, moving extremities NEUROLOGICAL: Alert and oriented, answers appropriately, moving extremities. Skin: large left ecchymosis on hip Results & Data Results & Data Vital Signs (Past 12 Hours) Vital Signs Temp Pulse Pulse Resp BP BP Pulse Ox 01/26/24 11:13 36.5 C 58 L 18 171/57 H 97 01/26/24 07:45 36.6 C 61 18 184/63 H 95 01/26/24 07:05 58 L 01/26/24 04:01 36.6 C 60 18 162/52 H 94 O2 Del Method 01/26/24 11:13 Room Air 01/26/24 07:45 Room Air 01/26/24 07:05 01/26/24 04:01 Room Air Laboratory Results 01/26/24 Range/Units 06:28 WBC 6.45 (4.8-10.8) K/ul RBC 2.31 L (4.20-5.40) M/uL Hgb 7.0 L (12.0-16.0) g/dl Hct 23.1 L (37.0-47.0) % MCV 100.0 (80.0-100.0) fL MCH 30.3 (25.0-34.0) pg MCHC 30.3 L (32.0-36.0) g/dL RDW Std Deviation 59.2 H (36.4-46.3) fL RDW Coeff of Geeta 16.1 H (11.5-14.5) % Plt Count 194 (130-400) K/uL MPV 12.4 (9.4-12.4) fL Sodium 141 (136-145) mmol/L Potassium 3.9 (3.5-5.1) mmol/L Chloride 115 H (98-107) mmol/L Carbon Dioxide 19 L (21-32) mmol/L Anion Gap 7 (3-11) BUN 31 H (6-23) mg/dl Creatinine 1.53 H (0.6-1.2) mg/dl Est Cr Clr Drug Dosing 27.9 ml/min Est GFR ( Amer) 38.4 ml/min Est GFR (Non-Af Amer) 33.2 ml/min BUN/Creatinine Ratio 20.3 H (10-20) Glucose 95 (70-99(Fasting)) mg/dl Calcium 8.5 L (8.6-10.3) mg/dl Phosphorus 2.4 L D (2.5-4.9) mg/dl Magnesium 1.8 (1.7-2.4) mg/dl Medications Administered Current Inpatient Medications Acetaminophen (Acetaminophen 325 Mg Tab) 650 mg PO Q4H PRN PRN Reason: pain/fever Stop: 02/21/24 17:00 Hydrocodone Bitart/Acetaminophen (Hydrocodone/Acetaminophen 7.5/325mg Tab) 1 tab PO TID PRN PRN Reason: Chronic back pain Stop: 02/05/24 17:11 Last Admin: 01/25/24 19:46 Dose: 1 tab Al Hydrox/Mg Hydrox/Simethicone (Aluminum/Magnesium Susp 30 Ml Udc) 30 ml PO Q6H PRN PRN Reason: Dyspepsia Stop: 02/21/24 17:00 Allopurinol (Allopurinol 300 Mg Tab) 300 mg PO DAILY [facility]ITH Stop: 02/22/24 08:59 Last Admin: 01/26/24 07:55 Dose: 300 mg Amlodipine Besylate (Amlodipine Besylate 5 Mg Tab) 10 mg PO DAILY [facility] Stop: 02/22/24 08:59 Last Admin: 01/26/24 07:54 Dose: 10 mg Aspirin (Aspirin 81 Mg Chew) 81 mg PO DAILY [facility] Stop: 02/22/24 08:59 Last Admin: 01/26/24 07:55 Dose: 81 mg Atorvastatin Calcium (Atorvastatin 40 Mg Tab) 80 mg PO DAILY [facility] Stop: 02/22/24 08:59 Last Admin: 01/26/24 07:55 Dose: 80 mg Carvedilol (Carvedilol 25 Mg Tab) 25 mg PO BID [facility] Stop: 02/21/24 20:59 Last Admin: 01/26/24 07:53 Dose: 25 mg Clopidogrel Bisulfate (Clopidogrel Bisulfate 75 Mg Tab) 75 mg PO DAILY [facility] Stop: 02/22/24 08:59 Last Admin: 01/26/24 07:54 Dose: 75 mg Ferrous Sulfate (Ferrous Sulfate 325 Mg Tab) 325 mg PO DAILY [facility] Stop: 02/22/24 08:59 Last Admin: 01/26/24 07:54 Dose: 325 mg Gabapentin (Gabapentin 300 Mg Cap) 300 mg PO DAILY [facility] Stop: 02/22/24 08:59 Last Admin: 01/26/24 07:55 Dose: 300 mg Hydralazine HCl (Hydralazine Tab 50 Mg Tab) 50 mg PO TID [facility] Stop: 02/21/24 20:59 Last Admin: 01/26/24 13:16 Dose: 50 mg Hydromorphone HCl (Hydromorphone Inj 0.5 Mg/0.5 Ml Syr) 0.25 mg IV Q6H PRN PRN Reason: Severe Pain (Scale 7, 8, 9,10) Stop: 02/05/24 17:17 Last Admin: 01/25/24 22:47 Dose: 0.25 mg Sodium Chloride (Nss) 1,000 mls @ 80 mls/hr IV .[id number] [facility] Stop: 02/21/24 17:44 Last Admin: 01/26/24 12:08 Dose: 80 mls/hr Promethazine HCl 6.25 mg/ (Sodium Chloride) 50.25 mls @ 201 mls/hr IV Q6H PRN PRN Reason: Nausea And Vomiting Stop: 02/21/24 17:41 Last Infusion: 01/23/24 12:31 Dose: Infused Ceftriaxone Sodium (Rocephin) 2,000 mg in 50 mls @ 100 mls/hr IV Q24H JUDITH Stop: 02/01/24 18:59 Last Infusion: 01/25/24 19:00 Dose: Infused Sodium Chloride (Nss) 250 mls @ 15 mls/hr IV .[id number] PRN PRN Reason: For Transfusion Duration Stop: 01/27/24 01:07 Magnesium Hydroxide (Magnesium Hydroxide Susp 30 Ml Udc) 30 ml PO Q6H PRN PRN Reason: Constipation Stop: 02/21/24 17:00 Pantoprazole Sodium (Pantoprazole 40 Mg Tab) 40 mg PO DAILY JUDITH Stop: 02/22/24 08:59 Last Admin: 01/26/24 07:56 Dose: 40 mg Polyethylene Glycol (Polyethylene (Miralax) 17 Gm Pack) 17 gm PO DAILY JUDITH Stop: 02/22/24 08:59 Last Admin: 01/26/24 07:56 Dose: Not Given Spironolactone (Spironolactone 25 Mg Tab) 25 mg PO DAILY JUDITH Stop: 02/22/24 08:59 Last Admin: 01/26/24 07:53 Dose: 25 mg Trazodone HCl (Trazodone Hcl 100 Mg Tab) 100 mg PO HS [facility] Stop: 02/21/24 20:59 Last Admin: 01/25/24 19:47 Dose: 100 mg (2) Nausea & vomiting Vomiting type: unspecified Qualified Code(s): R11.2 - Nausea with vomiting, unspecified (3) Abdominal pain Abdominal location: unspecified location Qualified Code(s): R10.9 - Unspecified abdominal pain (6) HTN (hypertension) Hypertension type: unspecified Qualified Code(s): I10 - Essential (primary) hypertension (7) Coronary artery disease Coronary Disease-Associated Artery/Lesion type: unspecified vessel or lesion type [place] vs. transplanted heart: [place] heart Associated angina: unspecified whether angina present Qualified Code(s): I25.10 - Atherosclerotic heart disease of [place] coronary artery without angina pectoris (8) Hyperlipidemia Hyperlipidemia type: unspecified Qualified Code(s): E78.5 - Hyperlipidemia, unspecified (9) Anemia Anemia type: iron deficiency Iron deficiency anemia type: unspecified iron deficiency Qualified Code(s): D50.9 - Iron deficiency anemia, unspecified (10) Chronic back pain Back pain location: back pain in unspecified location Back pain laterality: unspecified Qualified Code(s): M54.9 - Dorsalgia, unspecified; G89.29 - Other c hronic pain (12) Hematoma of left hip Encounter type: sequela Qualified Code(s): S70.02XS - Contusion of left hip, sequela (14) Gout Gout site: multiple sites Gout etiology: unspecified cause Chronicity: chronic Qualified Code(s): M1A.09X0 - Idiopathic chronic gout, multiple sites, without tophus (tophi) (15) Depression Depression Type: unspecified Qualified Code(s): F32.A - Depression, unspecified (16) Insomnia Insomnia type: unspecified Qualified Code(s): G47.00 - Insomnia, unspecified
[2024-01-26] MEDS: hydrALAZINE HCL 20 MG/ML VIAL IV ONE (18:32)
[2024-01-27 07:42] LABS: Hematocrit (blood only) 28.1 % (37.0-47.0); Hemoglobin 8.8 g/dl (12.0-16.0); Mean Corpuscular Hemoglobin 29.9 pg (25.0-34.0); Mean Corpuscular Hgb Conc 31.3 g/dL (32.0-36.0); Mean Corpuscular Volume 95.6 fL (80.0-100.0); Mean Platelet Volume 11.9 fL (9.4-12.4); Platelet Count 199 K/uL (130-400); RDW Coefficient of Variation 16.9 % (11.5-14.5); RDW Standard Deviation 57.8 fL (36.4-46.3); Red Blood Count 2.94 M/uL (4.20-5.40); White Blood Count 6.52 K/ul (4.8-10.8)
[2024-01-27 07:59] LABS: BUN Creatinine Ratio 20.9 (10-20); Calcium 8.6 mg/dl (8.6-10.3); Creatinine Clr Calc Pharmacy 38.7 ml/min; Est GFR (African American) 57.3 ml/min; Est GFR (Non-African American) 49.4 ml/min; Magnesium 1.6 mg/dl (1.7-2.4); Phosphorus 2.3 mg/dl (2.5-4.9); Potassium 3.7 mmol/L (3.5-5.1)
--- NOTE | 2024-01-27 08:36 | Hospitalist Progress Note ---
Date of Service January 27, 2024 Assessment & Plan (1) Bilateral ureteral calculi: (2) Nausea & vomiting: (3) Abdominal pain: (4) Elevated troponin: (5) CKD (chronic kidney disease) stage 4, GFR 15-29 ml/min: (6) HTN (hypertension): (7) Coronary artery disease: (8) Hyperlipidemia: (9) Anemia: (10) Chronic back pain: (11) Left hip pain: (12) Hematoma of left hip: (13) Status post left hip replacement: (14) Gout: (15) Depression: (16) Insomnia: Plan Radha Hare is a 73y/oF with PMHx significant for dyslipidemia, idiopathic chronic gout of multiple sites without tophus, allergic rhinitis, HTN, CAD, chronic HFpEF, TIA, hx of LUCAS 12/2023 multiple gastric ulcers, vitamin B12 deficiency, CKD stage III, osteoarthritis, depression who presented to the ED for evaluation of nausea and vomiting, abdominal pain x 1 week. Bilateral ureteral calculi Nausea & vomiting Abdominal pain hematoma of left hip CT abd/pelvis noting calculi, post op hematomas/seromas Urology consulted, appreciate recs -Patient with bilateral obstructing stones with significant obstruction on the right and atrophic appearing right kidney. -s/p stent placement on January 22 Stable at this time CKD Stable at this time Hypophosphatemia Replete as needed Hypomagnesemia Replete as needed Demand ischemia Stable, doubt ACS DVT Prophylaxis: SCDs Code Status: Full Code PCP: Karl Howe DO Dispo: Med/Surg w/ Telemetry Admission and Anticipated Discharge Date Admission Date: January 22, 2024 Subjective Pt was seen sitting in chair at bedside. States that she still does not feel back to baseline, not yet ready to be discharged. Denied acute concerns however. Review of Systems Review of Systems: All systems reviewed & are unremarkable except as noted in Subjective Physical Exam Physical Exam: General: Alert, oriented. No acute distress Skin: No noted rashes or bruises Psych: Appropriate mood and affect Neuro: difficulty with movements, weak HEENT: NC/AT CV: RRR Resp: Breath sounds clear bilaterally, no increased effort of breathing Abdomen: Soft, nontender, nondistended. Extremities: No edema in lower extremities bilaterally. Results & Data Results & Data Vital Signs (Past 12 Hours) Vital Signs Temp Pulse Pulse Resp BP Pulse Ox O2 Del Method 01/27/24 07:36 37.2 C 68 18 190/56 H 95 Room Air 01/27/24 03:41 36.9 C 65 18 198/48 H 93 Room Air 01/27/24 01:27 65 01/26/24 22:55 36.8 C 65 18 189/52 H 93 Room Air Diagnostic Findings Abdomen/Pelvis CT 01/22/24 13:59 CT SCAN OF THE ABDOMEN AND PELVIS WITH IV CONTRAST CLINICAL HISTORY: Generalized abdominal pain. Nausea and vomiting. COMPARISON STUDY: Abdominal CT dated 07/04/2022. TECHNIQUE: Following the IV administration of 70 cc of Optiray 320, CT scan of the abdomen and pelvis is performed from the lung bases to the proximal femora. Images are reviewed in the axial, sagittal, and coronal planes. IV contrast was administered without complication. A dose lowering technique was utilized adhering to the principles of ALARA. There is streak artifact from the arms which could not be elevated above the abdomen. CT DOSE: 1167.49 mGy.cm FINDINGS: Lung bases: The heart is normal in size and without pericardial effusion. There are coronary artery calcifications. A small hiatal hernia is noted. The lung bases are clear noting mild bibasilar scarring/atelectasis. Liver: The contrast-enhanced liver is normal in size, contour, and attenuation. There is no intrahepatic biliary ductal dilatation. The hepatic veins and portal veins are patent. Gallbladder: There are calcified gallstones with no CT evidence of acute cholecystitis. Spleen: Normal in size and attenuation. Pancreas: Unremarkable. Adrenal glands: Unremarkable. Kidneys: There is asymmetric cortical atrophy of the right kidney as compared to the left. No hydronephrosis is seen. There is a 6 mm calculus in the distal right ureter just above the vesicoureteral junction seen on image #252. A 10 mm calculus is noted in the distal left ureter on image #262. No upstream hydroureter is seen bilaterally. There is heterogeneous diminished enhancement of the right kidney as compared to the left. Abdominal vasculature: The abdominal aorta is normal in course and caliber noting advanced atherosclerotic calcification. A stent is noted in the superior mesenteric artery. Bowel: There is no bowel obstruction. The appendix is well-visualized and normal. Peritoneum: There is no intraperitoneal free air or abdominal ascites. Lymphadenopathy: None. Pelvic viscera: Evaluation of the pelvis is degraded by streak artifact from a left hip arthroplasty. The bladder is decompressed and grossly unremarkable. Uterus and adnexa are normal as visualized. Skeletal structures: The skeletal structures are osteopenic. Advanced spondylotic and postsurgical change is noted in the lumbar spine. A left hip arthroplasty is in place No lytic or blastic lesions are seen. Sclerotic changes noted in the sacroiliac joints. Soft tissues: There is soft tissue edema identified in the left upper thigh. There is a thick-walled pocket of complex fluid seen around the posterior left femoral shaft seen on axial image #314. This measures approximately 7 x 6 x 3.5 cm. There is a similar-appearing fluid collection in the subcutaneous soft tissues seen more superiorly overlying the left gluteal musculature on image #242. This measures approximately 6 x 6 x 5 cm. These collections closely approximated each other and may communicate. There is asymmetric atrophy of the left gluteal musculature as compared to the right. IMPRESSION: 1. There is a 6 mm calculus in the distal right ureter and a 10 mm calculus in the distal left ureter. No upstream hydroureteronephrosis is identified in either kidney. 2. Cholelithiasis. 3. There is asymmetric soft tissue edema identified in the left upper thigh with complex fluid collections overlying the left gluteal musculature and around the posterior aspect of the proximal femur. These may represent postoperative fluid collections such as seroma/hematomas. The sterility of this fluid cannot be assessed by imaging. Follow-up with patient's orthopedic surgeon is recommended. 4. Asymmetric cortical atrophy of the right kidney as compared to the left is similar to previous. 5. Additional findings as above. ACT 112: Negative or not required by law. Electronically signed by: Manan Pinto M.D. 01/22/2024 2:43 PM Retrograde Pyelogram 01/23/24 07:30 INTRAOPERATIVE RADIOGRAPHS CLINICAL HISTORY: Bilateral ureteral stent placement. Fluoro time: 52 seconds Ka,r: 9.42 mGy FINDINGS: 5 spot fluoroscopic views of the abdomen are correlated with abdominal CT dated 01/22/2024. Contrast injected into the renal pelvis bilaterally shows no significant hydronephrosis. The final images show the proximal and distal ends of bilateral ureteral stents in appropriate position. A left hip arthroplasty is in place. Fusion hardware is noted in the spine. IMPRESSION: Intraoperative images from bilateral ureteral stent placement as above. Electronically signed by: Manan Pinto M.D. 01/23/2024 8:32 AM (2) Nausea & vomiting Vomiting type: unspecified Qualified Code(s): R11.2 - Nausea with vomiting, unspecified (3) Abdominal pain Abdominal location: unspecified location Qualified Code(s): R10.9 - Unspecif ied abdominal pain (6) HTN (hypertension) Hypertension type: unspecified Qualified Code(s): I10 - Essential (primary) hypertension (7) Coronary artery disease Associated angina: unspecified whether angina present Coronary Disease- Associated Artery/Lesion type: unspecified vessel or lesion type [place] vs. transplanted heart: [place] heart Qualified Code(s): I25.10 - Atherosclerotic heart disease of [place] coronary artery without angina pectoris (8) Hyperlipidemia Hyperlipidemia type: unspecified Qualified Code(s): E78.5 - Hyperlipidemia, unspecified (9) Anemia Anemia type: iron deficiency Iron deficiency anemia type: unspecified iron deficiency Qualified Code(s): D50.9 - Iron deficiency anemia, unspecified (10) Chronic back pain Back pain laterality: unspecified Back pain location: back pain in unspecified location Qualified Code(s): M54.9 - Dorsalgia, unspecified; G89.29 - Other chronic pain (12) Hematoma of left hip Encounter type: sequela Qualified Code(s): S70.02XS - Contusion of left hip, sequela (14) Gout Chronicity: chronic Gout etiology: unspecified cause Gout site: multiple sites Qualified Code(s): M1A.09X0 - Idiopathic chronic gout, multiple sites, without tophus (tophi) (15) Depression Depression Type: unspecified Qualified Code(s): F32.A - Depression, un specified (16) Insomnia Insomnia type: unspecified Qualified Code(s): G47.00 - Insomnia, unspecified
[2024-01-27] MEDS ORDERED: POTASSIUM PHOS 3 MMOL/1 ML INFUSION IV STA (09:26)
[2024-01-27] MEDS: POTASSIUM PHOSPHATE 21 MMOL in SODIUM CHLORIDE 0.9% 500 ML IV ONE (10:27)
[2024-01-27] MEDS: MAGNESIUM SULFATE / D5W 1 GM/100 ML BAG IV SCH (10:27)
[2024-01-28] MEDS: amLODIPine BESYLATE 5 MG TAB PO ONE (00:07)
[2024-01-28 09:07] LABS: Basophils # (auto) 0.06 K/uL (0.00-0.20); Basophils % (auto) 0.8 %; Eosinophils # (auto) 0.29 K/uL (0.00-0.50); Eosinophils % (auto) 3.9 %; Hematocrit (blood only) 31.5 % (37.0-47.0); Hemoglobin 9.9 g/dl (12.0-16.0); Immature Granulocytes % (auto) 1.4 %; Lymphocytes # (auto) 1.74 K/uL (1.20-3.40); Lymphocytes % (auto) 23.5 %; Mean Corpuscular Hemoglobin 29.9 pg (25.0-34.0); Mean Corpuscular Hgb Conc 31.4 g/dL (32.0-36.0); Mean Corpuscular Volume 95.2 fL (80.0-100.0); Mean Platelet Volume 12.1 fL (9.4-12.4); Monocytes # (auto) 0.73 K/uL (0.11-0.59); Monocytes % (auto) 9.9 %; Neutrophils # (auto) 4.47 K/uL (1.40-6.50); Neutrophils % (auto) 60.5 %; Platelet Count 243 K/uL (130-400); RDW Coefficient of Variation 16.8 % (11.5-14.5); RDW Standard Deviation 57.4 fL (36.4-46.3); Red Blood Count 3.31 M/uL (4.20-5.40); White Blood Count 7.39 K/ul (4.8-10.8)
[2024-01-28 09:21] LABS: Albumin Globulin Ratio 1.1 (0.9-2); Albumin Level 3.1 gm/dl (3.4-5.0); BUN Creatinine Ratio 17.5 (10-20); Bilirubin,Total 0.7 mg/dl (0.2-1.0); Calcium 8.9 mg/dl (8.6-10.3); Creatinine Clr Calc Pharmacy 43.9 ml/min; Est GFR (African American) 66.7 ml/min; Est GFR (Non-African American) 57.5 ml/min; Globulin 2.8 gm/dl (2.5-4.0); Magnesium 1.7 mg/dl (1.7-2.4); Phosphorus 2.6 mg/dl (2.5-4.9); Potassium 3.4 mmol/L (3.5-5.1); Total Protein 5.9 gm/dl (6.0-8.3)
[2024-01-28] MEDS: POTASSIUM CHLORIDE CRTAB 20 MEQ TABCR PO STA (09:46)
[2024-01-28] MEDS: hydrALAZINE HCL 20 MG/ML VIAL IV ONE (13:33)
[2024-01-28] MEDS: OPTIRAY 320 100ml IV ONE (14:21)
--- NOTE | 2024-01-28 14:43 | CT Scan Report ---
CT OF THE ABDOMEN AND PELVIS WITH CONTRAST CLINICAL HISTORY: N/V, abdominal pain epigastrium, LLQ COMPARISON STUDY: CT of the abdomen and pelvis January 22, 2024. TECHNIQUE: Following IV administration of 93 mL of Optiray, axial images of the abdomen and pelvis we re obtained from the lung bases to the proximal femurs. Images were reviewed in the axial, sagittal, and coronal planes. IV contrast was administered without complication. Automated exposure control wa s utilized for the study. A dose lowering technique was utilized adhering to the principles of ALARA . CT DOSE: 1280.08 mGy.cm FINDINGS: A small right pleural effusion has developed since CT of 05/23/2024. Body wall edema is pres ent. There is no pneumatosis, free air or portal venous gas. There is no biliary or pancreatic ductal dilatation. Gallstones within the gallbladder are present. The gallbladder is not distended. There i s no pericholecystic infiltration. Spleen, adrenal glands and pancreas are unremarkable. Right renal atrophy is again noted. Bilateral ureteral stents are in place. There is no hydronephrosis. A 9 mm di stal left ureteral calculus has decreased in size since prior exam. The right ureteral calculus shown on prior CT is no longer identified. Quintero balloon within the bladder is noted. There is gas within the bladder. The bladder is collapsed. There is no evidence for a bowel obstruction. There is mild pr esacral stranding. Apparent mild rectal wall thickening is likely due to underdistention. Left hip ar throplasty is intact. There is no periprosthetic fracture. A fluid collection along the proximal left femur is unchanged in size since CT of January 22, 2024. An additional 6.4 cm fluid collection within th e lateral left thigh is also similar to prior exam. This contains hyperdense material. No new fluid c ollections are present. There are postoperative findings within the spine. No acute fractures are evelin ntified. IMPRESSION: 1. Bilateral ureteral stents in place. No hydronephrosis. Decrease in size of a 9 mm distal left uret eral calculus. No right ureteral calculi or fragments. 2. No bowel obstruction. No bowel wall thickening. 3. Cholelithiasis. No evidence for acute cholecystitis. 4. Small right pleural effusion. Body wall edema suggestive of anasarca. 5. Intact total left hip arthroplasty. No periprosthetic fracture. No significant change in associate d fluid collections since prior exam. These are likely postoperative and favor hematomas. ACT 112: Negative or not required by law. Electronically signed by: Torey Rouse M.D. 01/28/2024 2:41 PM
--- NOTE | 2024-01-28 15:03 | Hospitalist Progress Note ---
Date of Service January 28, 2024 Assessment & Plan (1) Bilateral ureteral calculi: (2) Nausea & vomiting: (3) Abdominal pain: (4) Elevated troponin: (5) CKD (chronic kidney disease) stage 4, GFR 15-29 ml/min: (6) HTN (hypertension): (7) Coronary artery disease: (8) Hyperlipidemia: (9) Anemia: (10) Chronic back pain: (11) Left hip pain: (12) Hematoma of left hip: (13) Status post left hip replacement: (14) Gout: (15) Depression: (16) Insomnia: Plan Radha Hare is a 73y/oF with PMHx significant for dyslipidemia, idiopathic chronic gout of multiple sites without tophus, allergic rhinitis, HTN, CAD, chronic HFpEF, TIA, hx of LUCAS 12/2023 multiple gastric ulcers, vitamin B12 deficiency, CKD stage III, osteoarthritis, depression who presented to the ED for evaluation of nausea and vomiting, abdominal pain x 1 week. Bilateral ureteral calculi Atrophic right kidney Presented with nausea and vomiting, abdominal pain x [address] abd/pelvis on admission noting calculi, post op hematomas/seromas UA was not suggestive of infection, no reflex urine Cx Urology consulted, appreciate recs -Patient with bilateral obstructing stones with significant obstruction on the right and atrophic appearing right kidney. -s/p bilateral stent placement on January 22 -Maintain Quintero catheter for now. Depending on clinical course, can likely have void trial prior to discharge. - Will arrange outpatient follow-up for stone and stent management. 01/27- episodes of N/V once more. CT abd pelvis repeated, no acute cause. Resistant HTN Pt with known History Follows with Nephrology Current regimen of amlodipine 10, coreg 25mg BID, hydralazine 50mg TID, spironolactone 25mg IV hydralazine 5mg prn Echo ordered and pending Nephrology consulted on 01/27 for further recs Prolonged QTC EKG on admission noting prolonged qtc Repeat EKG noting improvement avoid qtc prolonging agents Repeat EKG 01/27 for further eval Obstructive CAD Hx of STEMI s/p pLAD stent SMA stenosis s/p stent Continue DAPT Chronic Heart Failure with preserved EF LVEF 54% Echo ordered above and pending chronic anemia Iron Deficiency Anemia Acute Blood Loss Anemia baseline ~8,on iron supplementation s/p 1U pRBC transfusion on 01/25 Stable LUCAS on CKD IV follows with nephrology Dr Clark avoid nephrotoxic agents Currently improved Left hip hematoma Chronic pain s/p left hip arthroplasty 09/2023 chronic hematoma, slow resolution still with notable discomfort/weakness hgb stable PT/OT HLD continue statin Hypophosphatemia Replete as needed Hypomagnesemia Replete as needed Demand ischemia Stable, doubt ACS DVT Prophylaxis: SCDs Code Status: Full Code Diet: HH Dispo: PT recommending return home Admission and Anticipated Discharge Date Admission Date: January 22, 2024 Subjective Pt was seen with sister at bedside. States has had 3 episodes of vomitting once more. Also having abdominal pain. However was able to tolerate a burger for lunch and taking her potassium supplements. Review of Systems Review of Systems: All systems reviewed & are unremarkable except as noted in Subjective Physical Exam Physical Exam: General: Alert, oriented. No acute distress Skin: No noted rashes or bruises Psych: Appropriate mood and affect Neuro: difficulty with movements, weak HEENT: NC/AT CV: RRR Resp: Breath sounds clear bilaterally, no increased effort of breathing Abdomen: Soft, tender in epigastrium, LLQ, nondistended. Extremities: No edema in lower extremities bilaterally. Results & Data Results & Data Vital Signs (Past 12 Hours) Vital Signs Temp Pulse Pulse Resp BP Pulse Ox O2 Del Method 01/28/24 12:31 36.4 C L 66 18 196/63 H 96 Room Air 01/28/24 08:00 60 01/28/24 07:42 36.8 C 72 18 192/53 H 96 Room Air 01/28/24 04:11 36.6 C 59 L 20 182/62 H 95 Room Air Diagnostic Findings Abdomen/Pelvis CT 01/22/24 13:59 CT SCAN OF THE ABDOMEN AND PELVIS WITH IV CONTRAST CLINICAL HISTORY: Generalized abdominal pain. Nausea and vomiting. COMPARISON STUDY: Abdominal CT dated 07/04/2022. TECHNIQUE: Following the IV administration of 70 cc of Optiray 320, CT scan of the abdomen and pelvis is performed from the lung bases to the proximal femora. Images are reviewed in the axial, sagittal, and coronal planes. IV contrast was administered without complication. A dose lowering technique was utilized adhering to the principles of ALARA. There is streak artifact from the arms which could not be elevated above the abdomen. CT DOSE: 1167.49 mGy.cm FINDINGS: Lung bases: The heart is normal in size and without pericardial effusion. There are coronary artery calcifications. A small hiatal hernia is noted. The lung bases are clear noting mild bibasilar scarring/atelectasis. Liver: The contrast-enhanced liver is normal in size, contour, and attenuation. There is no intrahepatic biliary ductal dilatation. The hepatic veins and portal veins are patent. Gallbladder: There are calcified gallstones with no CT evidence of acute cholecystitis. Spleen: Normal in size and attenuation. Pancreas: Unremarkable. Adrenal glands: Unremarkable. Kidneys: There is asymmetric cortical atrophy of the right kidney as compared to the left. No hydronephrosis is seen. There is a 6 mm calculus in the distal right ureter just above the vesicoureteral junction seen on image #252. A 10 mm calculus is noted in the distal left ureter on image #262. No upstream hydroureter is seen bilaterally. There is heterogeneous diminished enhancement of the right kidney as compared to the left. Abdominal vasculature: The abdominal aorta is normal in course and caliber noting advanced atherosclerotic calcification. A stent is noted in the superior mesenteric artery. Bowel: There is no bowel obstruction. The appendix is well-visualized and normal. Peritoneum: There is no intraperitoneal free air or abdominal ascites. Lymphadenopathy: None. Pelvic viscera: Evaluation of the pelvis is degraded by streak artifact from a left hip arthroplasty. The bladder is decompressed and grossly unremarkable. Uterus and adnexa are normal as visualized. Skeletal structures: The skeletal structures are osteopenic. Advanced spondyl otic and postsurgical change is noted in the lumbar spine. A left hip arthroplasty is in place No lytic or blastic lesions are seen. Sclerotic changes noted in the sacroiliac joints. Soft tissues: There is soft tissue edema identified in the left upper thigh. There is a thick-walled pocket of complex fluid seen around the posterior left femoral shaft seen on axial image #314. This measures approximately 7 x 6 x 3.5 cm. There is a similar-appearing fluid collection in the subcutaneous soft tissues seen more superiorly overlying the left gluteal musculature on image #242. This measures approximately 6 x 6 x 5 cm. These collections closely approximated each other and may communicate. There is asymmetric atrophy of the left gluteal musculature as compared to the right. IMPRESSION: 1. There is a 6 mm calculus in the distal right ureter and a 10 mm calculus in the distal left ureter. No upstream hydroureteronephrosis is identified in either kidney. 2. Cholelithiasis. 3. There is asymmetric soft tissue edema identified in the left upper thigh with complex fluid collections overlying the left gluteal musculature and around the posterior aspect of the proximal femur. These may represent postoperative fluid collections such as seroma/hematomas. The sterility of this fluid cannot be assessed by imaging. Follow-up with patient's orthopedic surgeon is recommended. 4. Asymmetric cortical atrophy of the right kidney as compared to the left is similar to previous. 5. Additional findings as above. ACT 112: Negative or not required by law. Electronically signed by: Manan Pinto M.D. 01/22/2024 2:43 PM Retrograde Pyelogram 01/23/24 07:30 INTRAOPERATIVE RADIOGRAPHS CLINICAL HISTORY: Bilateral ureteral stent placement. Fluoro time: 52 seconds Ka,r: 9.42 mGy FINDINGS: 5 spot fluoroscopic views of the abdomen are correlated with abdominal CT dated 01/22/2024. Contrast injected into the renal pelvis bilaterally shows no significant hydronephrosis. The final images show the proximal and distal ends of bilateral ureteral stents in appropriate position. A left hip arthroplasty is in place. Fusion hardware is noted in the spine. IMPRESSION: Intraoperative images from bilateral ureteral stent placement as above. Electronically signed by: Manan Pinto M.D. 01/23/2024 8:32 AM Abdomen/Pelvis CT 01/28/24 13:22 CT OF THE ABDOMEN AND PELVIS WITH CONTRAST CLINICAL HISTORY: N/V, abdominal pain epigastrium, LLQ COMPARISON STUDY: CT of the abdomen and pelvis January 22, 2024. TECHNIQUE: Following IV administration of 93 mL of Optiray, axial images of the abdomen and pelvis were obtained from the lung bases to the proximal femurs. Images were reviewed in the axial, sagittal, and coronal planes. IV contrast was administered without complication. Automated exposure control was utilized for the study. A dose lowering technique was utilized adhering to the principles of ALARA. CT DOSE: 1280.08 mGy.cm FINDINGS: A small right pleural effusion has developed since CT of 05/23/2024. Body wall edema is present. There is no pneumatosis, free air or portal venous gas. There is no biliary or pancreatic ductal dilatation. Gallstones within the gallbladder are present. The gallbladder is not distended. There is no pericholecystic infiltration. Spleen, adrenal glands and pancreas are unremarkable. Right renal atrophy is again noted. Bilateral ureteral stents are in place. There is no hydronephrosis. A 9 mm distal left ureteral calculus has decreased in size since prior exam. The right ureteral calculus shown on prior CT is no longer identified. Quintero balloon within the bladder is noted. There is gas within the bladder. The bladder is collapsed. There is no evidence for a b owel obstruction. There is mild presacral stranding. Apparent mild rectal wall thickening is likely due to underdistention. Left hip arthroplasty is intact. There is no periprosthetic fracture. A fluid collection along the proximal left femur is unchanged in size since CT of January 22, 2024. An additional 6.4 cm fluid collection within the lateral left thigh is also similar to prior exam. This contains hyperdense material. No new fluid collections are present. There are postoperative findings within the spine. No acute fractures are identified. IMPRESSION: 1. Bilateral ureteral stents in place. No hydronephrosis. Decrease in size of a 9 mm distal left ureteral calculus. No right ureteral calculi or fragments. 2. No bowel obstruction. No bowel wall thickening. 3. Cholelithiasis. No evidence for acute cholecystitis. 4. Small right pleural effusion. Body wall edema suggestive of anasarca. 5. Intact total left hip arthroplasty. No periprosthetic fracture. No significant change in associated fluid collections since prior exam. These are likely postoperative and favor hematomas. ACT 112: Negative or not required by law. Electronically signed by: Torey Rouse M.D. 01/28/2024 2:41 PM (2) Nausea & vomiting Vomiting type: unspecified Qualified Code(s): R11.2 - Nausea with vomiting, unspecified (3) Abdominal pain Abdominal location: unspecified location Qualified Code(s): R10.9 - Unspecified abdominal pain (6) HTN (hypertension) Hypertension type: unspecified Qualified Code(s): I10 - Essential (primary) hypertension (7) Coronary artery disease Associated angina: unspecified whether angina present Coronary Disease- Associated Artery/Lesion type: unspecified vessel or lesion type [place] vs. transplanted heart: [place] heart Qualified Code(s): I25.10 - Atherosclerotic heart disease of [place] coronary artery without angina pectoris (8) Hyperlipidemia Hyperlipidemia type: unspecified Qualified Code(s): E78.5 - Hyperlipidemia, unspecified (9) Anemia Anemia type: iron deficiency Iron deficiency anemia type: unspecified iron deficiency Qualified Code(s): D50.9 - Iron deficiency anemia, unspecified (10) Chronic back pain Back pain laterality: unspecified Back pain location: back pain in unspecified location Qualified Code(s): M54.9 - Dorsalgia, unspecified; G89.29 - Other chronic pain (12) Hematoma of left hip Encounter type: sequela Qualified Code(s): S70.02XS - Contusion of left hip, sequela (14) Gout Chronicity: chronic Gout etiology: unspecified cause Gout site: multiple sites Qualified Code(s): M1A.09X0 - Idiopathic chronic gout, multiple sites, without tophus (tophi) (15) Depression Depression Type: unspecified Qualified Code(s): F32.A - Depression, unspecified (16) Insomnia Insomnia type: unspecified Qualified Code(s): G47.00 - Insomnia, unspecified
[2024-01-28] MEDS: hydroCHLOROthiazide 25 MG TAB PO SCH (17:38)
[2024-01-28] MEDS: hydrALAZINE HCL 20 MG/ML VIAL IV PRN (21:47)
--- NOTE | 2024-01-29 05:39 | Communication Note ---
Date of Service: January 29, 2024 Made aware by RN of uncontrolled blood pressure. SBP 150-190s since admission last week. Heart rate 60s. Patient asymptomatic as per RN. AP Hypertensive urgency Labetalol in place of Coreg Will relay to AM provider.
[2024-01-29] MEDS: LABETALOL HCL 100 MG TAB PO SCH (06:30)
[2024-01-29 06:37] LABS: Basophils # (auto) 0.04 K/uL (0.00-0.20); Basophils % (auto) 0.6 %; Eosinophils # (auto) 0.31 K/uL (0.00-0.50); Eosinophils % (auto) 4.5 %; Hematocrit (blood only) 28.4 % (37.0-47.0); Immature Granulocytes # (auto) 0.04 K/uL (0.01-0.20); Immature Granulocytes % (auto) 0.6 %; Lymphocytes # (auto) 1.62 K/uL (1.20-3.40); Lymphocytes % (auto) 23.4 %; Mean Corpuscular Hgb Conc 31.7 g/dL (32.0-36.0); Mean Corpuscular Volume 94.7 fL (80.0-100.0); Mean Platelet Volume 12.3 fL (9.4-12.4); Monocytes # (auto) 0.96 K/uL (0.11-0.59); Monocytes % (auto) 13.9 %; Neutrophils # (auto) 3.96 K/uL (1.40-6.50); Platelet Count 207 K/uL (130-400); RDW Coefficient of Variation 16.7 % (11.5-14.5); RDW Standard Deviation 56.4 fL (36.4-46.3); White Blood Count 6.93 K/ul (4.8-10.8)
[2024-01-29 07:05] LABS: Albumin Globulin Ratio 1.2 (0.9-2); Bilirubin,Total 0.7 mg/dl (0.2-1.0); Calcium 8.8 mg/dl (8.6-10.3); Creatinine Clr Calc Pharmacy 42.6 ml/min; Est GFR (African American) 64.3 ml/min; Est GFR (Non-African American) 55.5 ml/min; Globulin 2.6 gm/dl (2.5-4.0); Magnesium 1.6 mg/dl (1.7-2.4); Phosphorus 2.8 mg/dl (2.5-4.9); Potassium 3.5 mmol/L (3.5-5.1); Total Protein 5.6 gm/dl (6.0-8.3)
[2024-01-29] MEDS: MAGNESIUM SULFATE / D5W 1 GM/100 ML BAG IV SCH (10:15)
[2024-01-29] MEDS: amLODIPine BESYLATE 5 MG TAB PO SCH (10:16)
[2024-01-29] MEDS: ACETAMINOPHEN 325 MG TAB PO PRN (10:39)
--- NOTE | 2024-01-29 10:59 | Nephrology Consultation ---
Date of Consultation January 29, 2024 Assessment & Plan (1) Resistant hypertension: (2) LUCAS (acute kidney injury): (3) Coronary artery disease: (4) Bilateral ureteral calculi: Plan Stage III A/B CKD, baseline creatinine seems to be around 1.2-1.3 with repeated history of acute kidney injury, history of bilateral renal artery stenosis and significant atherosclerotic disease. Urinalysis with low-grade proteinuria. Renal imaging showed relatively atrophic right kidney. Prior renal imaging showed bilateral renal artery stenosis however never had any intervention done. Admitted to the hospital with bilateral obstructive uropathy s/p laser lithotripsy, basket respiratory bowel and bilateral ureteral stent. Had LUCAS, creatinine peaked to 1.7 which resolved and creatinine down to 1.1, electrolyte acceptable except mild hypokalemia, on potassium supplement in addition to s pironolactone. History of resistant hypertension and has been on multiple antihypertensive medications, through the hospitalization blood pressure has been significantly elevated with systolic blood pressure most of the time above 180s. Historically she does not feel well with systolic blood pressure less than 130. Blood pressure remain quite elevated but otherwise asymptomatic. -- Increase spironolactone to 50 mg daily and increase as needed as potassium generally has been low. Schedule for renal artery Doppler for assessment of the degree of renal artery stenosis with prior history of renal artery stenosis noted on imaging in 2019. Since she is currently on decent dose of 4 antihypertensive medications including diuretics, if she has significant bilateral renal artery stenosis, she will need intervention. If renal artery stenosis is not severe, trial of LELAND inhibitor or ARB can be considered with close monitoring of kidney function. -- Continue to monitor kidney function and electrolyte Thank you for allowing me to participate in your patient's care. It was a pleasure to see Radha. History of Present Illness Reason for Consultation: Resistant hypertension, LUCAS Attending Physician: Jaja Cruz MD History of Present Illness Ms. Radha Hare is a 73-year-old female with past medical history significant for stage IIIa CKD, history of atherosclerotic disease, coronary artery disease, nephrolithiasis admitted to the hospital with obstructive uropathy. Nephrology consult was requested for management of resistant hypertension. Electronic medical records are reviewed in detail during patient's visit. Radha was admitted to the hospital on 01/22/2024 with acute back pain and imaging showed bilateral hydronephrosis with obstructive uropathy. Lab was notable for acute kidney injury, creatinine was 1.7. She had bilateral stent placement and right-sided laser lithotripsy and basket retrieval of stone. Kidney function eventually improved rapidly and creatinine down to 1.1, close to baseline. Electrolyte has been acceptable. Prior renal imaging showed relatively small right kidney with more than 60% stenosis. Hospitalization was notable for hypertensive urgency with history of poorly controlled/resistant hypertension for years. She has been on amlodipine 10 mg daily, hydrochlorothiazide 25 mg daily, hydralazine 50 mg 3 times daily, spironolactone 25 mg daily and carvedilol 25 mg daily. Carvedilol was switched to labetalol last night however blood pressure remains quite elevated. Has not been on LELAND inhibitor or ARB most likely because of her history of bilateral renal artery stenosis. Has history of repeated episodes of LUCAS. Has low-grade proteinuria. Aldosterone was normal when checked in 2022, renin was elevated. Never smoker, does not drink alcohol. She generally tries to follow low-salt diet. No history of sleep apnea. Her mom has history of CKD but etiology unclear. Past medical history is mainly significant for atherosclerotic disease in many vascular beds. Previously had right carotid endarterectomy. In December 2023 she had acute DC and had LAD stent at [facility]. MR angiography in 2019 showed bilateral renal artery stenosis and superior mesenteric artery stenosis. However, it is unclear how that she had any intervention for renal artery stenosis. Her blood pressure generally runs high and history of symptomatic hypotension with systolic blood pressure less than 130. Has history of gout, has been on allopurinol 300 mg daily. Had left total hip replacement in September 2023. Overall she reports feeling well except an episode of vomiting this morning. Denies abdominal pain, headache, chest pain. Blood pressure remains elevated. Allergies Allergy/AdvReac Type Severity Reaction Status Date / Time oxycodone AdvReac Severe syncope, Verified 01/22/24 16:57 low bp nickel AdvReac Intermediate rash and Verified 01/22/24 16:57 skin turns green Home Medications Medication Instructions Recorded Confirmed Type multivitamin 1 tab PO QAM #30 tabs 09/30/23 01/22/24 Rx polyethylene glycol 3350 17 gram 17 g PO DAILY 12/14/23 01/22/24 History oral powder packet (Miralax) allopurinol 300 mg tablet 300 mg PO DAILY #90 tabs 12/24/23 01/22/24 Rx amlodipine 10 mg tablet 10 mg PO DAILY #90 tabs 12/24/23 01/22/24 Rx aspirin 81 mg chewable tablet 81 mg PO DAILY 01/22/24 01/22/24 History atorvastatin 80 mg tablet 80 mg PO DAILY 01/22/24 01/22/24 History carvedilol 25 mg tablet 25 mg PO BID 01/22/24 01/22/24 History citalopram 40 mg tablet 40 mg PO .QHS 01/22/24 01/22/24 History clopidogrel 75 mg tablet 75 mg PO DAILY 01/22/24 01/22/24 History ferrous sulfate 325 mg (65 mg 325 mg PO DAILY 01/22/24 01/22/24 History iron) tablet (FeroSul) gabapentin 300 mg capsule 300 mg PO DAILY 01/22/24 01/22/24 History hydralazine 50 mg tablet 50 mg PO TID 01/22/24 01/22/24 History hydrocodone 7.5 mg-acetaminophen 1 tab PO TID PRN Chronic back pain 01/22/24 01/22/24 History 325 mg tablet nitroglycerin 0.4 mg sublingual 0.4 mg sublingual .Q5MIN PRN Chest 01/22/24 01/22/24 History tablet Pain omeprazole 40 mg capsule,delayed 40 mg PO DAILY 01/22/24 01/22/24 History release spironolactone 25 mg tablet 25 mg PO DAILY 01/22/24 01/22/24 History trazodone 100 mg tablet 100 mg PO .QHS Sleep 01/22/24 01/22/24 History Patient History Medical History Acute pain of left hip Hypertensive urgency Renal artery stenosis Neck pain Carotid artery stenosis Diverticular disease Surgical History History of percutaneous coronary intervention History of CEA (carotid endarterectomy) History of arthroplasty of right knee History of back surgery History of carpal tunnel surgery right H/O left cataract extraction 04/29/18-2mg IV versed given without issues History of bilateral tubal ligation History of arthroscopy chencho knee History of colonoscopy w/ polypectomy History of endoscopic sinus surgery Family History Mother Family history of early CAD Social History Smoking Status: Never smoker Second Hand Exposure: No; Do You Dip or Chew Tobacco: No; Hx Alcohol Use: No Hx Substance Use: No Preferred Language: Kazakh Communication Ability: Effective Visual Impairment: No Limitations Cook Candy Required: No Beliefs That Will Affect Care: None marital status: Single Current Living Situation: Alone Feels Safe at Home: Yes Assistive Devices: Walker Review of Systems Review of Systems: Detailed review of system was done and pertinent positives and negatives are mentioned above. Physical Exam Constitutional: WD/WN, vitals as above no acute distress Eyes: + anicteric sclerae Neck: normal visual inspection Respiratory: Auscultation: lungs clear to auscultation bilaterally Cardiovascular: RRR, no murmur, no edema Gastrointestinal (Abdomen): Inspection/Auscultation: abdomen normal to inspection Percussion/Palpation: abdomen soft; abdomen nontender Musculoskeletal: Extremities: extremities normal to inspection Skin: no rashes, warm and dry Neurologic: no focal motor deficits Psychiatric: Orientation: alert and oriented x 3 Affect: euthymic affect Results & Data Vital Signs (Past 12 Hours) Vital Signs Temp Pulse Pulse Resp BP Pulse Ox O2 Del Method 01/29/24 07:35 Room Air 01/29/24 07:32 36.8 C 62 16 184/55 H 94 Room Air 01/29/24 05:48 63 01/29/24 05:35 67 193/54 H 01/29/24 04:32 36.6 C 57 L 20 192/54 H 94 Room Air 01/28/24 23:58 36.9 C 66 20 175/52 H 93 Room Air PG Care Time/CCT Total # of Minutes Spent Total Time Spent with Patient: Total time spent is greater than 50% in coordination of care (as documented) at patient's floor/unit and/or counseling patient: Coding Level of Care Code 69627 INT INP/OBS CARE 3/75MIN Diagnoses Resistant hypertension I1A.0 LUCAS (acute kidney injury) N17.9 Coronary artery disease involving [place] heart, unspecified vessel or lesion type, unspecified whether angina present I25.10 Coronary Disease-Associated Artery/Lesion type: unspecified vessel or lesion type [place] vs. transplanted heart: [place] heart Associated angina: unspecified whether angina present Bilateral ureteral calculi N20.1 (3) Coronary artery disease Coronary Disease-Associated Artery/Lesion type: unspecified vessel or lesion type [place] vs. transplanted heart: [place] heart Associated angina: unspecified whether angina present Qualified Code(s): I25.10 - Atherosclerotic heart disease of [place] coronary artery without angina pectoris
--- NOTE | 2024-01-29 12:48 | Hospitalist Progress Note ---
Date of Service January 29, 2024 Assessment & Plan (1) Bilateral ureteral calculi: (2) Nausea & vomiting: (3) Abdominal pain: (4) Elevated troponin: (5) CKD (chronic kidney disease) stage 4, GFR 15-29 ml/min: (6) HTN (hypertension): (7) Coronary artery disease: (8) Hyperlipidemia: (9) Anemia: (10) Chronic back pain: (11) Left hip pain: (12) Hematoma of left hip: (13) Status post left hip replacement: (14) Gout: (15) Depression: (16) Insomnia: Plan Radha Hare is a 73y/oF with PMHx significant for dyslipidemia, idiopathic chronic gout of multiple sites without tophus, allergic rhinitis, HTN, CAD, chronic HFpEF, TIA, hx of LUCAS 12/2023 multiple gastric ulcers, vitamin B12 deficiency, CKD stage III, osteoarthritis, depression who presented to the ED for evaluation of nausea and vomiting, abdominal pain x 1 week. Bilateral ureteral calculi Atrophic right kidney Presented with nausea and vomiting, abdominal pain x [address] abd/pelvis on admission noting calculi, post op hematomas/seromas UA was not suggestive of infection, no reflex urine Cx Urology consulted, appreciate recs -Patient with bilateral obstructing stones with significant obstruction on the right and atrophic appearing right kidney. -s/p bilateral stent placement on January 22 -Maintain Quintero catheter for now. Depending on clinical course, can likely have void trial prior to discharge. - Will arrange outpatient follow-up for stone and stent management. 01/27- episodes of N/V once more. CT abd pelvis repeated, no acute cause. Resistant HTN Pt with known History Follows with Nephrology Current regimen of amlodipine 10, coreg 25mg BID, hydralazine 50mg TID, spironolactone 25mg IV hydralazine 5mg prn Echo ordered and pending Nephrology consulted on 01/27 for further recs Prolonged QTC EKG on admission noting prolonged qtc Repeat EKG noting improvement avoid qtc prolonging agents Repeat EKG 01/27 for further eval Obstructive CAD Hx of STEMI s/p pLAD stent SMA stenosis s/p stent Continue DAPT Chronic Heart Failure with preserved EF LVEF 54% Echo ordered above and pending chronic anemia Iron Deficiency Anemia Acute Blood Loss Anemia baseline ~8,on iron supplementation s/p 1U pRBC transfusion on 01/25 Stable LUCAS on CKD IV follows with nephrology Dr Clark avoid nephrotoxic agents Currently improved Left hip hematoma Chronic pain s/p left hip arthroplasty 09/2023 chronic hematoma, slow resolution still with notable discomfort/weakness hgb stable PT/OT HLD continue statin Hypophosphatemia Replete as needed Hypomagnesemia Replete as needed Demand ischemia Stable, doubt ACS DVT Prophylaxis: SCDs Code Status: Full Code Diet: HH Dispo: PT recommending return home Admission and Anticipated Discharge Date Admission Date: January 22, 2024 Physical Exam Physical Exam: General: Alert, oriented. No acute distress Skin: No noted rashes or bruises Psych: Appropriate mood and affect Neuro: difficulty with movements, weak HEENT: NC/AT CV: RRR Resp: Breath sounds clear bilaterally, no increased effort of breathing Abdomen: Soft, tender in epigastrium, LLQ, nondistended. Extremities: No edema in lower extremities bilaterally. Results & Data Results & Data Vital Signs (Past 12 Hours) Vital Signs Temp Pulse Pulse Resp BP Pulse Ox O2 Del Method 01/29/24 11:08 37.4 C 67 17 184/55 H 95 Room Air 01/29/24 07:35 Room Air 01/29/24 07:32 36.8 C 62 16 184/55 H 94 Room Air 01/29/24 05:48 63 01/29/24 05:35 67 193/54 H 01/29/24 04:32 36.6 C 57 L 20 192/54 H 94 Room Air (2) Nausea & vomiting Vomiting type: unspecified Qualified Code(s): R11.2 - Nausea with vomiting, unspecified (3) Abdominal pain Abdominal location: unspecified location Qualified Code(s): R10.9 - Unspecified abdominal pain (6) HTN (hypertension) Hypertension type: unspecified Qualified Code(s): I10 - Essential (primary) hypertension (7) Coronary artery disease Coronary Disease-Associated Artery/Lesion type: unspecified vessel or lesion type [place] vs. transplanted heart: [place] heart Associated angina: unspecified whether angina present Qualified Code(s): I25.10 - Atherosclerotic heart disease of [place] coronary artery without angina pectoris (8) Hyperlipidemia Hyperlipidemia type: unspecified Qualified Code(s): E78.5 - Hyperlipidemia, unspecified (9) Anemia Anemia type: iron deficiency Iron deficiency anemia type: unspecified iron deficiency Qualified Code(s): D50.9 - Iron deficiency anemia, unspecified (10) Chronic back pain Back pain location: back pain in unspecified location Back pain laterality: unspecified Qualified Code(s): M54.9 - Dorsalgia, unspecified; G89.29 - Other chronic pain (12) Hematoma of left hip Encounter type: sequela Qualified Code(s): S70.02XS - Contusion of left hip, sequela (14) Gout Gout site: multiple sites Gout etiology: unspecified cause Chronicity: chronic Qualified Code(s): M1A.09X0 - Idiopathic chronic gout, multiple sites, without tophus (tophi) (15) Depression Depression Type: unspecified Qualified Code(s): F32.A - Depression, unspecified (16) Insomnia Insomnia type: unspecified Qualified Code(s): G47.00 - Insomnia, unspecified
--- NOTE | 2024-01-29 12:52 | Hospitalist Progress Note ---
Date of Service January 29, 2024 Assessment & Plan (1) Bilateral ureteral calculi: (2) Nausea & vomiting: (3) Abdominal pain: (4) Elevated troponin: (5) CKD (chronic kidney disease) stage 4, GFR 15-29 ml/min: (6) HTN (hypertension): (7) Coronary artery disease: (8) Hyperlipidemia: (9) Anemia: (10) Chronic back pain: (11) Left hip pain: (12) Hematoma of left hip: (13) Status post left hip replacement: (14) Gout: (15) Depression: (16) Insomnia: Plan Radha Hare is a 73y/oF with PMHx significant for dyslipidemia, idiopathic chronic gout of multiple sites without tophus, allergic rhinitis, HTN, CAD, chronic HFpEF, TIA, hx of LUCAS 12/2023 multiple gastric ulcers, vitamin B12 deficiency, CKD stage III, osteoarthritis, depression who presented to the ED for evaluation of nausea and vomiting, abdominal pain x 1 week. Bilateral ureteral calculi Atrophic right kidney Presented with nausea and vomiting, abdominal pain x [address] abd/pelvis on admission noting calculi, post op hematomas/seromas UA was not suggestive of infection, no reflex urine Cx Urology consulted, appreciate recs -Patient with bilateral obstructing stones with significant obstruction on the right and atrophic appearing right kidney. -s/p bilateral stent placement on January 22 -Maintain Quintero catheter for now. Depending on clinical course, can likely have void trial prior to discharge. - Will arrange outpatient follow-up for stone and stent management. 01/27- episodes of N/V once more. CT abd pelvis repeated, no acute cause. Resistant HTN Pt with known History Follows with Nephrology Current regimen of amlodipine 10, coreg 25mg BID, hydralazine 50mg TID, spironolactone 25mg IV hydralazine 5mg prn Echo with EF 55-60%, mild LVH and Grade 1 diastolic dysfunction Nephrology consulted on 01/27 for further recs -renal US pending ro rule out progressing renal artery stenosis -spironolactone increased to 50mg daily -If renal artery stenosis is not severe, trial of LELAND inhibitor or ARB can be considered with close monitoring of kidney function. Prolonged QTC EKG on admission noting prolonged qtc at 600 Repeat EKGs noting improvement from 600-->534--->493 avoid qtc prolonging agents Daily EKG Obstructive CAD Hx of STEMI s/p pLAD stent SMA stenosis s/p stent Continue DAPT Chronic Heart Failure with preserved EF LVEF 54% Echo with EF 55-60%, mild LVH and Grade 1 diastolic dysfunction chronic anemia Iron Deficiency Anemia Acute Blood Loss Anemia baseline ~8,on iron supplementation s/p 1U pRBC transfusion on 01/25 Stable LUCAS on CKD IV follows with nephrology Dr Clark avoid nephrotoxic agents Currently improved Left hip hematoma Chronic pain s/p left hip arthroplasty 09/2023 chronic hematoma, slow resolution still with notable discomfort/weakness hgb stable PT/OT HLD continue statin Hypophosphatemia Replete as needed Hypomagnesemia Replete as needed Demand ischemia Stable, doubt ACS DVT Prophylaxis: SCDs Code Status: Full Code Diet: HH Dispo: PT recommending return home Admission and Anticipated Discharge Date Admission Date: January 22, 2024 Subjective pt was seen resting comfortably in bed. States she still does not feel like she is at her baseline. Another episode of N/V in the AM. Review of Systems Review of Systems: All systems reviewed & are unremarkable except as noted in Subjective Physical Exam Physical Exam: General: Alert, oriented. No acute distress Skin: No noted rashes or bruises Psych: Appropriate mood and affect Neuro: difficulty with movements, weak HEENT: NC/AT CV: RRR Resp: Breath sounds clear bilaterally, no increased effort of breathing Abdomen: Soft, tender in epigastrium, LLQ, nondistended. Extremities: No edema in lower extremities bilaterally. Results & Data Results & Data Vital Signs (Past 12 Hours) Vital Signs Temp Pulse Pulse Resp BP Pulse Ox O2 Del Method 01/29/24 11:08 37.4 C 67 17 184/55 H 95 Room Air 01/29/24 07:35 Room Air 01/29/24 07:32 36.8 C 62 16 184/55 H 94 Room Air 01/29/24 05:48 63 01/29/24 05:35 67 193/54 H 01/29/24 04:32 36.6 C 57 L 20 192/54 H 94 Room Air (2) Nausea & vomiting Vomiting type: unspecified Qualified Code(s): R11.2 - Nausea with vomiting, unspecified (3) Abdominal pain Abdominal location: unspecified location Qualified Code(s): R10.9 - Unspecified abdominal pain (6) HTN (hypertension) Hypertension type: unspecified Qualified Code(s): I10 - Essential (primary) hypertension (7) Coronary artery disease Associated angina: unspecified whether angina present Coronary Disease- Associated Artery/Lesion type: unspecified vessel or lesion type [place] vs. transplanted heart: [place] heart Qualified Code(s): I25.10 - Atherosclerotic heart disease of [place] coronary artery without angina pectoris (8) Hyperlipidemia Hyperlipidemia type: unspecified Qualified Code(s): E78.5 - Hyperlipidemia, unspecified (9) Anemia Anemia type: iron deficiency Iron deficiency anemia type: unspecified iron deficiency Qualified Code(s): D50.9 - Iron deficiency anemia, unspecified (10) Chronic back pain Back pain laterality: unspecified Back pain location: back pain in unspecified location Qualified Code(s): M54.9 - Dorsalgia, unspecified; G89.29 - Other chronic pain (12) Hematoma of left hip Encounter type: sequela Qualified Code(s): S70.02XS - Contusion of left hip, sequela (14) Gout Chronicity: chronic Gout etiology: unspecified cause Gout site: multiple sites Qualified Code(s): M1A.09X0 - Idiopathic chronic gout, multiple sites, without tophus (tophi) (15) Depression Depression Type: unspecified Qualified Code(s): F32.A - Depression, unspecified (16) Insomnia Insomnia type: unspecified Qualified Code(s): G47.00 - Insomnia, unspecified
--- NOTE | 2024-01-29 13:11 | Electrocardiogram Report ---
Test Reason : Blood Pressure : / mmHG Vent. Rate : 071 BPM Atrial Rate : 071 BPM P-R Int : 184 ms QRS Dur : 088 ms QT Int : 454 ms P-R-T Axes : 056 002 -28 degrees QTc Int : 493 ms Normal sinus rhythm Possible Left atrial enlargement T wave abnormality, consider anterolateral ischemia Long QTc Abnormal ECG Confirmed by Mannie De La Paz ([id number]) on 01/29/2024 1:10:50 PM Referred By: REFERRED SELF Confirmed By:Colin De La Paz
[2024-01-29] MEDS: SPIRONOLACTONE 25 MG TAB PO ONE (17:15)
[2024-01-29] MEDS: MAGNESIUM OXIDE 400 MG TAB PO SCH (19:45)
[2024-01-29] MEDS: hydrALAZINE HCL 20 MG/ML VIAL IV ONE (23:51)
--- NOTE | 2024-01-30 06:47 | Ultrasound Report ---
US duplex renal artery HISTORY: 73 years-old Female resistant hypertension, h/o renal artery stenosis hypertension COMPARISON: CT 01/28/2024 TECHNIQUE: Multiple real-time sonographic images of the renal vascular structures were obtained asses sing grayscale appearance, color and spectral flow FINDINGS: Normal flow within the abdominal aorta with peak systolic velocities measuring up to 305 cm/s. Extens kelly atherosclerosis. The study is limited secondary to motion artifact and patient body habitus. Atrophic right kidney redemonstrated measuring 8 cm in length with diffuse cortical thinning and incr eased parenchymal echogenicity. Nonvisualization of the right renal artery. Patent right renal vein. The left kidney measures 10.5 cm in length with patent renal vein. Resistive indices within the left renal artery measure up to 0.1 proximally. Suboptimal visualization of the renal artery with peak sys tolic velocities measuring up to 116 cm/s. IMPRESSION: 1. Limited exam as above with nonvisualization of the right renal artery. 2. No definite evidence of renal arterial stenosis on this limited exam. 3. Atrophic right kidney redemonstrated. ACT 112: Negative or not required by law. The above report was generated using voice recognition software. It may contain grammatical, syntax o r spelling errors. Electronically signed by: Rudi Vanegas M.D. 01/30/2024 6:45 AM
[2024-01-30 08:08] LABS: Basophils # (auto) 0.04 K/uL (0.00-0.20); Basophils % (auto) 0.6 %; Eosinophils # (auto) 0.29 K/uL (0.00-0.50); Hematocrit (blood only) 32.2 % (37.0-47.0); Immature Granulocytes # (auto) 0.06 K/uL (0.01-0.20); Immature Granulocytes % (auto) 0.8 %; Lymphocytes # (auto) 1.66 K/uL (1.20-3.40); Lymphocytes % (auto) 23.1 %; Mean Corpuscular Hemoglobin 29.9 pg (25.0-34.0); Mean Corpuscular Hgb Conc 31.1 g/dL (32.0-36.0); Mean Corpuscular Volume 96.1 fL (80.0-100.0); Monocytes # (auto) 0.73 K/uL (0.11-0.59); Monocytes % (auto) 10.1 %; Neutrophils # (auto) 4.42 K/uL (1.40-6.50); Neutrophils % (auto) 61.4 %; Platelet Count 229 K/uL (130-400); RDW Coefficient of Variation 17.3 % (11.5-14.5); RDW Standard Deviation 58.9 fL (36.4-46.3); Red Blood Count 3.35 M/uL (4.20-5.40)
[2024-01-30 08:31] LABS: Albumin Globulin Ratio 1.1 (0.9-2); Albumin Level 3.2 gm/dl (3.4-5.0); BUN Creatinine Ratio 12.4 (10-20); Bilirubin,Total 0.8 mg/dl (0.2-1.0); Calcium 9.3 mg/dl (8.6-10.3); Creatinine Clr Calc Pharmacy 53.3 ml/min; Est GFR (Non-African American) 63.8 ml/min; Globulin 2.9 gm/dl (2.5-4.0); Magnesium 1.9 mg/dl (1.7-2.4); Phosphorus 3.1 mg/dl (2.5-4.9); Potassium 3.9 mmol/L (3.5-5.1); Total Protein 6.1 gm/dl (6.0-8.3)
[2024-01-30] MEDS: SPIRONOLACTONE 25 MG TAB PO SCH (08:43)
--- NOTE | 2024-01-30 10:57 | Nephrology Consultation ---
Date of Consultation January 30, 2024 History of Present Illness Attending Physician: Jaja Cruz MD Allergies Allergy/AdvReac Type Severity Reaction Status Date / Time oxycodone AdvReac Severe syncope, Verified 01/22/24 16:57 low bp nickel AdvReac Intermediate rash and Verified 01/22/24 16:57 skin turns green Home Medications Medication Instructions Recorded Confirmed Type multivitamin 1 tab PO QAM #30 tabs 09/30/23 01/22/24 Rx polyethylene glycol 3350 17 gram 17 g PO DAILY 12/14/23 01/22/24 History oral powder packet (Miralax) allopurinol 300 mg tablet 300 mg PO DAILY #90 tabs 12/24/23 01/22/24 Rx amlodipine 10 mg tablet 10 mg PO DAILY #90 tabs 12/24/23 01/22/24 Rx aspirin 81 mg chewable tablet 81 mg PO DAILY 01/22/24 01/22/24 History atorvastatin 80 mg tablet 80 mg PO DAILY 01/22/24 01/22/24 History carvedilol 25 mg tablet 25 mg PO BID 01/22/24 01/22/24 History citalopram 40 mg tablet 40 mg PO .QHS 01/22/24 01/22/24 History clopidogrel 75 mg tablet 75 mg PO DAILY 01/22/24 01/22/24 History ferrous sulfate 325 mg (65 mg 325 mg PO DAILY 01/22/24 01/22/24 History iron) tablet (FeroSul) gabapentin 300 mg capsule 300 mg PO DAILY 01/22/24 01/22/24 History hydralazine 50 mg tablet 50 mg PO TID 01/22/24 01/22/24 History hydrocodone 7.5 mg-acetaminophen 1 tab PO TID PRN Chronic back pain 01/22/24 01/22/24 History 325 mg tablet nitroglycerin 0.4 mg sublingual 0.4 mg sublingual .Q5MIN PRN Chest 01/22/24 01/22/24 History tablet Pain omeprazole 40 mg capsule,delayed 40 mg PO DAILY 01/22/24 01/22/24 History release spironolactone 25 mg tablet 25 mg PO DAILY 01/22/24 01/22/24 History trazodone 100 mg tablet 100 mg PO .QHS Sleep 01/22/24 01/22/24 History Patient History Medical History Acute pain of left hip Hypertensive urgency Renal artery stenosis Neck pain Carotid artery stenosis Diverticular disease Surgical History History of percutaneous coronary intervention History of CEA (carotid endarterectomy) History of arthroplasty of right knee History of back surgery History of carpal tunnel surgery right H/O left cataract extraction 04/29/18-2mg IV versed given without issues History of bilateral tubal ligation History of arthroscopy chencho knee History of colonoscopy w/ polypectomy History of endoscopic sinus surgery Family History Mother Family history of early CAD Social History Smoking Status: Never smoker Second Hand Exposure: No; Do You Dip or Chew Tobacco: No; Hx Alcohol Use: No Hx Substance Use: No Preferred Language: [place] Communication Ability: Effective Visual Impairment: No Limitations Fundraising Specialist Required: No Beliefs That Will Affect Care: None marital status: Single Current Living Situation: Alone Feels Safe at Home: Yes Assistive Devices: Walker Results & Data Vital Signs (Past 12 Hours) Vital Signs Temp Pulse Pulse Resp BP Pulse Ox O2 Del Method 01/30/24 07:33 72 01/30/24 07:17 37.7 C H 76 18 198/53 H 94 Room Air 01/30/24 03:41 36.9 C 76 18 193/62 H 94 Room Air 01/29/24 23:30 190/56 H Diagnostic Findings US duplex renal artery COMPARISON: CT 01/28/2024 FINDINGS: Normal flow within the abdominal aorta with peak systolic velocities measuring up to 305 cm/s. Extensive atherosclerosis. The study is limited secondary to motion artifact and patient body habitus. Atrophic right kidney redemonstrated measuring 8 cm in length with diffuse cortical thinning and increased parenchymal echogenicity. Nonvisualization of the right renal artery. Patent right renal vein. The left kidney measures 10.5 cm in length with patent renal vein. Resistive indices within the left renal artery measure up to 0.1 proximally. Suboptimal visualization of the renal artery with peak systolic velocities measuring up to 116 cm/s. IMPRESSION: 1. Limited exam as above with nonvisualization of the right renal artery. 2. No definite evidence of renal arterial stenosis on this limited exam. 3. Atrophic right kidney redemonstrated. PG Care Time/CCT Total # of Minutes Spent Total Time Spent with Patient: Total time spent is greater than 50% in coordination of care (as documented) at patient's floor/unit and/or counseling patient: Coding
--- NOTE | 2024-01-30 11:02 | Nephrology Progress Note ---
Date of Service January 30, 2024 Assessment & Plan (1) Resistant hypertension: Plan: Volume status acceptable. Tolerating current therapy well. Continue amlodipine 10 mg daily, HCTZ 25 mg daily, spironolactone 50 mg daily. Carvedilol was recently switched to labetalol. Radha also remains on hydralazine 50 mg TID. BP remains notably elevated. Suggest restarting ARB therapy now. Losartan 25 mg daily provided now. Radha has known cerebrovascular disease and carotid stenosis s/p CEA. She has not tolerated BP <130 mmHg systolic due to presyncope in the past. Her dietitian helper established a reasonable SBP goal of 140-150 mmHg. Repeat metabolic profile tomorrow AM. (2) LUCAS (acute kidney injury): Plan: CKD with known atrophic R kidney. Creatinine normalized to <1 mg/dL. Electrolytes acceptable. Volume status euvolemic. Medications are appropriate for kidney function. Radha has a notably history of multiple episodes of LUCAS. She has significant calcific arthrosclerotic disease with suspected bilateral renal artery stenosis on MRA in 2019. Renal duplex updated this admission was limited or of low quality. Elevated peak velocity was not appreciated in the left renal artery. However, close outpatient follow up with vascular is encouraged. Angiography may be considered for definitive diagnosis in the future. (3) Bilateral ureteral calculi: Plan: s/p cystoscopy with bilateral retrograde pyelogram and bilateral ureteral stent insertion on January 22. Right ureteroscopy with laser lithotripsy and basket stone extraction performed at that time. Quintero remains in place. Management per urology. Admission and Anticipated Discharge Date Admission Date: January 22, 2024 Subjective No acute events overnight. Radha was resting comfortably in bed this morning. She reports nausea and vomiting after eating this AM. This fits with pattern of similar symptoms. Some mild epigastric discomfort persists. No diarrhea or constipation reported. No fevers or chills. Otherwise, she generally feels uncomfortable and unwell - she has felt this way in the past when her blood pressure is elevated. She denies chest pains or palpitations. She denies dyspnea or shortness of breath. No headaches or visual changes. Review of Systems Review of Systems: All systems reviewed & are unremarkable except as noted in HPI & below Physical Exam Constitutional: well developed; no acute distress Eyes: + anicteric sclerae; no corneal abnormal ity ENMT: Mouth: no oral mucosal abnormality and oral mucous membranes not dry Neck: normal visual inspection and trachea midline Respiratory: normal respiratory effort Auscultation: lungs clear to auscultation bilaterally Cardiovascular: Rate/Rhythm: regular rate Heart Sounds: normal S1 and normal S2 Extremities: no edema Gastrointestinal (Abdomen): Inspection/Auscultation: abdomen normal to inspection; abdomen not distended Percussion/Palpation: + abdomen tender (epigastric and RUQ) and abdomen soft; no guarding and abdomen not rigid Musculoskeletal: Extremities: no cyanosis and no clubbing Skin: normal turgor; no lesions Neurologic: Motor/Sensory: no tremor and no asterixis Psychiatric: Orientation: alert and oriented x 3 Results & Data Vital Signs (Past 12 Hours) Vital Signs Temp Pulse Pulse Resp BP Pulse Ox O2 Del Method 01/30/24 07:33 72 01/30/24 07:17 37.7 C H 76 18 198/53 H 94 Room Air 01/30/24 03:41 36.9 C 76 18 193/62 H 94 Room Air 01/29/24 23:30 190/56 H Laboratory Results Laboratory Results - last 24 hr 01/30/24 07:26 WBC 7.20 RBC 3.35 L Hgb 10.0 L Hct 32.2 L MCV 96.1 MCH 29.9 MCHC 31.1 L RDW Std Deviation 58.9 H RDW Coeff of Geeta 17.3 H Plt Count 229 MPV 12.0 Immature Gran % (Auto) 0.8 Neut % (Auto) 61.4 Lymph % (Auto) 23.1 [place] % (Auto) 10.1 Eos % (Auto) 4.0 Baso % (Auto) 0.6 Neut # (Auto) 4.42 Lymph # (Auto) 1.66 [place] # (Auto) 0.73 H Eos # (Auto) 0.29 Baso # (Auto) 0.04 Immature Gran # (Auto) 0.06 Sodium 138 Potassium 3.9 Chloride 105 Carbon Dioxide 25 Anion Gap 8 BUN 11 Creatinine 0.89 Est Cr Clr Drug Dosing 53.3 Est GFR ( Amer) 74.0 Est GFR (Non-Af Amer) 63.8 BUN/Creatinine Ratio 12.4 Glucose 99 Calcium 9.3 Phosphorus 3.1 Magnesium 1.9 Total Bilirubin 0.8 AST 15 ALT 9 Alkaline Phosphatase 70 Total Protein 6.1 Albumin 3.2 L Globulin 2.9 Albumin/Globulin Ratio 1.1 Diagnostic Findings US duplex renal artery COMPARISON: CT 01/28/2024 FINDINGS: Normal flow within the abdominal aorta with peak systolic velocities measuring up to 305 cm/s. Extensive atherosclerosis. The study is limited secondary to motion artifact and patient body habitus. Atrophic right kidney redemonstrated measuring 8 cm in length with diffuse cortical thinning and increased parenchymal echogenicity. Nonvisualization of the right renal artery. Patent right renal vein. The left kidney measures 10.5 cm in length with patent renal vein. Resistive indices within the left renal artery measure up to 0.1 proximally. Suboptimal visualization of the renal artery with peak systolic velocities measuring up to 116 cm/s. IMPRESSION: 1. Limited exam as above with nonvisualization of the right renal artery. 2. No definite evidence of renal arterial stenosis on this limited exam. 3. Atrophic right kidney redemonstrated. CT OF THE ABDOMEN AND PELVIS WITH CONTRAST COMPARISON STUDY: CT of the abdomen and pelvis January 22, 2024. FINDINGS: A small right pleural effusion has developed since CT of 05/23/2024. Body wall edema is present. There is no pneumatosis, free air or portal venous gas. There is no biliary or pancreatic ductal dilatation. Gallstones within the gallbladder are present. The gallbladder is not distended. There is no pericholecystic infiltration. Spleen, adrenal glands and pancreas are unremarkable. Right renal atrophy is again noted. Bilateral ureteral stents are in place. There is no hydronephrosis. A 9 mm distal left ureteral calculus has decreased in size since prior exam. The right ureteral calculus shown on prior CT is no longer identified. Quintero balloon within the bladder is noted. There is gas within the bladder. The bladder is collapsed. There is no evidence for a bowel obstruction. There is mild presacral stranding. Apparent mild rectal wall thickening is likely due to underdistention. Left hip arthroplasty is intact. There is no periprosthetic fracture. A fluid collection along the proximal left femur is unchanged in size since CT of January 22, 2024. An additional 6.4 cm fluid collection within the lateral left thigh is also similar to prior exam. This co ntains hyperdense material. No new fluid collections are present. There are postoperative findings within the spine. No acute fractures are identified. IMPRESSION: 1. Bilateral ureteral stents in place. No hydronephrosis. Decrease in size of a 9 mm distal left ureteral calculus. No right ureteral calculi or fragments. 2. No bowel obstruction. No bowel wall thickening. 3. Cholelithiasis. No evidence for acute cholecystitis. 4. Small right pleural effusion. Body wall edema suggestive of anasarca. 5. Intact total left hip arthroplasty. No periprosthetic fracture. No significant change in associated fluid collections since prior exam. These are likely postoperative and favor hematomas. PG Care Time/CCT Total # of Minutes Spent Total Time Spent with Patient: Total time spent is greater than 50% in coordination of care (as documented) at patient's floor/unit and/or counseling patient: Coding Level of Care Code 98679 SUB INP/OBS CARE 3/50MIN Diagnoses Resistant hypertension I1A.0 LUCAS (acute kidney injury) N17.9 Bilateral ureteral calculi N20.1
--- NOTE | 2024-01-30 12:45 | Hospitalist Progress Note ---
Date of Service January 30, 2024 Assessment & Plan (1) Bilateral ureteral calculi: (2) Nausea & vomiting: (3) Abdominal pain: (4) Elevated troponin: (5) CKD (chronic kidney disease) stage 4, GFR 15-29 ml/min: (6) HTN (hypertension): (7) Coronary artery disease: (8) Hyperlipidemia: (9) Anemia: (10) Chronic back pain: (11) Left hip pain: (12) Hematoma of left hip: (13) Status post left hip replacement: (14) Gout: (15) Depression: (16) Insomnia: Plan Radha Hare is a 73y/oF with PMHx significant for dyslipidemia, idiopathic chronic gout of multiple sites without tophus, allergic rhinitis, HTN, CAD, chronic HFpEF, TIA, hx of LUCAS 12/2023 multiple gastric ulcers, vitamin B12 deficiency, CKD stage III, osteoarthritis, depression who presented to the ED for evaluation of nausea and vomiting, abdominal pain x 1 week. Bilateral ureteral calculi Atrophic right kidney Presented with nausea and vomiting, abdominal pain x [address] abd/pelvis on admission noting calculi, post op hematomas/seromas UA was not suggestive of infection, no reflex urine Cx Urology consulted, appreciate recs -Patient with bilateral obstructing stones with significant obstruction on the right and atrophic appearing right kidney. -s/p bilateral stent placement on January 22 -Maintain Quintero catheter for now. Depending on clinical course, can likely have void trial prior to discharge. - Will arrange outpatient follow-up for stone and stent management. 01/27- episodes of N/V once more. CT abd pelvis repeated, no acute cause. Intractable N/V Abdominal Pain GI upset GI consulted, appreciate recs -pending EGD Antiemetics as needed Resistant HTN Pt with known History Follows with Nephrology Original regimen of amlodipine 10, coreg 25mg BID, hydralazine 50mg TID, spironolactone 25mg. Coreg was switched to labetalol 100mg BID IV hydralazine 5mg prn Echo with EF 55-60%, mild LVH and Grade 1 diastolic dysfunction Nephrology consulted on 01/27 for further recs -renal US pending to rule out progressing renal artery stenosis -spironolactone increased to 50mg daily -started on losartan 25mg daily -close vascular followup for renal artery stenosis 06/15- started on losartan 25mg daily. Prolonged QTC EKG on admission noting prolonged qtc at 600 Repeat EKGs noting improvement from 600-->534--->493 avoid qtc prolonging agents Daily EKG Obstructive CAD Hx of STEMI s/p pLAD stent SMA stenosis s/p stent Continue DAPT Chronic Heart Failure with preserved EF LVEF 54% Echo with EF 55-60%, mild LVH and Grade 1 diastolic dysfunction chronic anemia Iron Deficiency Anemia Acute Blood Loss Anemia baseline ~8,on iron supplementation s/p 1U pRBC transfusion on 01/25 Stable LUCAS on CKD IV follows with nephrology Dr Clark avoid nephrotoxic agents Currently improved Left hip hematoma Chronic pain s/p left hip arthroplasty 09/2023 chronic hematoma, slow resolution still with notable discomfort/weakness hgb stable PT/OT HLD continue statin Hypophosphatemia Replete as needed Hypomagnesemia Replete as needed Demand ischemia Stable, doubt ACS DVT Prophylaxis: SCDs Code Status: Full Code Diet: HH Dispo: PT recommending return home Admission and Anticipated Discharge Date Admission Date: January 22, 2024 Subjective Pt was seen laying in bed Still having the N/V and states she feels upset Still not back to baseline Review of Systems Review of Systems: All systems reviewed & are unremarkable except as noted in Subjective Physical Exam Physical Exam: General: Alert, oriented. No acute distress Skin: No noted rashes or bruises Psych: Appropriate mood and affect Neuro: difficulty with movements, weak HEENT: NC/AT CV: RRR Resp: Breath sounds clear bilaterally, no increased effort of breathing Abdomen: Soft, tender in epigastrium, LLQ, nondistended. Extremities: No edema in lower extremities bilaterally. Results & Data Results & Data Vital Signs (Past 12 Hours) Vital Signs Temp Pulse Pulse Resp BP Pulse Ox O2 Del Method 01/30/24 11:56 37.0 C 75 18 182/57 H 95 Room Air 01/30/24 07:33 72 01/30/24 07:17 37.7 C H 76 18 198/53 H 94 Room Air 01/30/24 03:41 36.9 C 76 18 193/62 H 94 Room Air (2) Nausea & vomiting Vomiting type: unspecified Qualified Code(s): R11.2 - Nausea with vomiting, unspecified (3) Abdominal pain Abdominal location: unspecified location Qualified Code(s): R10.9 - Unspecified abdominal pain (6) HTN (hypertension) Hypertension type: unspecified Qualified Code(s): I10 - Essential (primary) hypertension (7) Coronary artery disease Associated angina: unspecified whether angina present Coronary Disease- Associated Artery/Lesion type: unspecified vessel or lesion type [place] vs. transplanted heart: [place] heart Qualified Code(s): I25.10 - Atherosclerotic heart disease of [place] coronary artery without angina pectoris (8) Hyperlipidemia Hyperlipidemia type: unspecified Qualified Code(s): E78.5 - Hyperlipidemia, unspecified (9) Anemia Anemia type: iron deficiency Iron deficiency anemia type: unspecified iron deficiency Qualified Code(s): D50.9 - Iron deficiency anemia, unspecified (10) Chronic back pain Back pain laterality: unspecified Back pain location: back pain in unspecified location Qualified Code(s): M54.9 - Dorsalgia, unspecified; G89.29 - Other chronic pain (12) Hematoma of left hip Encounter type: sequela Qualified Code(s): S70.02XS - Contusion of left hip, sequela (14) Gout Chronicity: chronic Gout etiology: unspecified cause Gout site: multiple sites Qualified Code(s): M1A.09X0 - Idiopathic chronic gout, multiple sites, without tophus (tophi) (15) Depression Depression Type: unspecified Qualified Code(s): F32.A - Depression, unspecified (16) Insomnia Insomnia type: unspecified Qualified Code(s): G47.00 - Insomnia, unspecified
[2024-01-30] MEDS ORDERED: SIMETHICONE (ENDO) IR PRN (13:52)
[2024-01-30] MEDS: LOSARTAN POTASSIUM 25 MG TAB PO SCH (15:54)
--- NOTE | 2024-01-30 17:54 | Electrocardiogram Report ---
Test Reason : Blood Pressure : / mmHG Vent. Rate : 074 BPM Atrial Rate : 074 BPM P-R Int : 190 ms QRS Dur : 088 ms QT Int : 448 ms P-R-T Axes : 037 006 -35 degrees QTc Int : 497 ms Normal sinus rhythm Possible Left atrial enlargement T wave abnormality, consider inferior ischemia T wave abnormality, consider anterolateral ischemia Prolonged QT Abnormal ECG When compared with ECG of 28-JAN-2024 17:27, No significant change was found Confirmed by Mannie De La Paz ([id number]) on 01/30/2024 5:54:26 PM Referred By: REFERRED SELF Confirmed By:Colin De La Paz
[2024-01-31 06:43] LABS: Basophils # (auto) 0.06 K/uL (0.00-0.20); Eosinophils # (auto) 0.26 K/uL (0.00-0.50); Eosinophils % (auto) 4.2 %; Hematocrit (blood only) 26.9 % (37.0-47.0); Hemoglobin 8.6 g/dl (12.0-16.0); Immature Granulocytes # (auto) 0.06 K/uL (0.01-0.20); Lymphocytes # (auto) 1.61 K/uL (1.20-3.40); Lymphocytes % (auto) 25.8 %; Mean Corpuscular Hemoglobin 30.2 pg (25.0-34.0); Mean Corpuscular Volume 94.4 fL (80.0-100.0); Mean Platelet Volume 12.3 fL (9.4-12.4); Monocytes # (auto) 0.91 K/uL (0.11-0.59); Monocytes % (auto) 14.6 %; Neutrophils # (auto) 3.33 K/uL (1.40-6.50); Neutrophils % (auto) 53.4 %; Platelet Count 198 K/uL (130-400); RDW Coefficient of Variation 16.7 % (11.5-14.5); RDW Standard Deviation 56.5 fL (36.4-46.3); Red Blood Count 2.85 M/uL (4.20-5.40); White Blood Count 6.23 K/ul (4.8-10.8)
[2024-01-31 07:04] LABS: Albumin Globulin Ratio 1.2 (0.9-2); Albumin Level 2.9 gm/dl (3.4-5.0); BUN Creatinine Ratio 13.2 (10-20); Bilirubin,Total 0.8 mg/dl (0.2-1.0); Calcium 8.9 mg/dl (8.6-10.3); Creatinine Clr Calc Pharmacy 52.5 ml/min; Est GFR (Non-African American) 62.2 ml/min; Globulin 2.5 gm/dl (2.5-4.0); Magnesium 1.8 mg/dl (1.7-2.4); Phosphorus 3.2 mg/dl (2.5-4.9); Potassium 3.5 mmol/L (3.5-5.1); Total Protein 5.4 gm/dl (6.0-8.3)
--- NOTE | 2024-01-31 12:00 | Nephrology Progress Note ---
Date of Service January 31, 2024 Assessment & Plan (1) Resistant hypertension: Plan: Volume status acceptable. Tolerating current therapy well. Continue amlodipine 10 mg daily, HCTZ 25 mg daily, spironolactone 50 mg daily. Remains on BID labetalol and TID hydralazine. Losartan 25 mg daily added yesterday. BP improved. Avoid aggressive titration of medications and continue to monitor on current therapy. Radha denies symptoms for her hypertension. Radha has known cerebrovascular disease and carotid stenosis s/p CEA. She has not tolerated BP <130 mmHg systolic due to presyncope in the past. Her senior benefits analyst established a reasonable SBP goal of 140-150 mmHg. Repeat metabolic profile tomorrow AM. (2) LUCAS (acute kidney injury): Plan: CKD with known atrophic R kidney. Creatinine remains normal today. Electrolytes acceptable. Volume status euvolemic. Medications are appropriate for kidney function. Radha has a notably history of multiple episodes of LUCAS. She has significant calcific arthrosclerotic disease with suspected bilateral renal artery stenosis on MRA in 2019. Renal duplex updated this admission was limited or of low quality. Elevated peak velocity was not appreciated in the left renal artery. However, close outpatient follow up with vascular is encouraged. Angiography may be considered for definitive diagnosis in the future. (3) Bilateral ureteral calculi: Plan: s/p cystoscopy with bilateral retrograde pyelogram and bilateral ureteral stent insertion on January 22. Right ureteroscopy with laser lithotripsy and basket stone extraction performed at that time. Quintero remains in place. Management per urology. Admission and Anticipated Discharge Date Admission Date: January 22, 2024 Subjective No acute events overnight. Radha is feeling better this AM. She is out of bed to chair. Appetite fair. She is being very cautious with her eating. No vomiting this AM but still some mild abdominal discomfort. Nausea improved. Denies lightheadedness or dizziness. No chest pain. No shortness of breath. Review of Systems Review of Systems: All systems reviewed & are unremarkable except as noted in HPI & below Physical Exam Constitutional: well developed; no acute distress Eyes: + anicteric sclerae; no corneal abnormal ity ENMT: Mouth: no oral mucosal abnormality and oral mucous membranes not dry Neck: normal visual inspection and trachea midline Respiratory: normal respiratory effort Auscultation: lungs clear to auscultation bilaterally Cardiovascular: Rate/Rhythm: regular rate Heart Sounds: normal S1 and normal S2 Extremities: no edema Gastrointestinal (Abdomen): Inspection/Auscultation: abdomen normal to inspection; abdomen not distended Percussion/Palpation: + abdomen tender (epigastric and RUQ) and abdomen soft; no guarding and abdomen not rigid Musculoskeletal: Extremities: no cyanosis and no clubbing Skin: normal turgor; no lesions Neurologic: Motor/Sensory: no tremor and no asterixis Psychiatric: Orientation: alert and oriented x 3 Results & Data Vital Signs (Past 12 Hours) Vital Signs Temp Pulse Pulse Resp BP Pulse Ox O2 Del Method 01/31/24 10:59 37.0 C 64 18 155/52 H 96 Room Air 01/31/24 07:49 65 01/31/24 07:27 37.0 C 69 18 183/61 H 94 Room Air 01/31/24 04:00 36.7 C 69 18 163/61 H 95 Room Air Laboratory Results Laboratory Results - last 24 hr 01/31/24 06:04 WBC 6.23 RBC 2.85 L Hgb 8.6 L Hct 26.9 L MCV 94.4 MCH 30.2 MCHC 32.0 RDW Std Deviation 56.5 H RDW Coeff of Geeta 16.7 H Plt Count 198 MPV 12.3 Immature Gran % (Auto) 1.0 Neut % (Auto) 53.4 Lymph % (Auto) 25.8 [place] % (Auto) 14.6 Eos % (Auto) 4.2 Baso % (Auto) 1.0 Neut # (Auto) 3.33 Lymph # (Auto) 1.61 [place] # (Auto) 0.91 H Eos # (Auto) 0.26 Baso # (Auto) 0.06 Immature Gran # (Auto) 0.06 Sodium 138 Potassium 3.5 Chloride 107 Carbon Dioxide 27 Anion Gap 4 BUN 12 Creatinine 0.91 Est Cr Clr Drug Dosing 52.5 Est GFR ( Amer) 72.0 Est GFR (Non-Af Amer) 62.2 BUN/Creatinine Ratio 13.2 Glucose 93 Calcium 8.9 Phosphorus 3.2 Magnesium 1.8 Total Bilirubin 0.8 AST 11 L ALT 7 Alkaline Phosphatase 62 Total Protein 5.4 L Albumin 2.9 L Globulin 2.5 Albumin/Globulin Ratio 1.2 PG Care Time/CCT Total # of Minutes Spent Total Time Spent with Patient: Total time spent is greater than 50% in coordination of care (as documented) at patient's floor/unit and/or counseling patient: Coding Level of Care Code 10244 SUB INP/OBS CARE 350MIN Diagnoses Resistant hypertension I1A.0 LUCAS (acute kidney injury) N17.9 Bilateral ureteral calculi N20.1
--- NOTE | 2024-01-31 14:28 | Hospitalist Progress Note ---
Date of Service January 31, 2024 Assessment & Plan (1) Bilateral ureteral calculi: (2) Nausea & vomiting: (3) Abdominal pain: (4) Elevated troponin: (5) CKD (chronic kidney disease) stage 4, GFR 15-29 ml/min: (6) HTN (hypertension): (7) Coronary artery disease: (8) Hyperlipidemia: (9) Anemia: (10) Chronic back pain: (11) Left hip pain: (12) Hematoma of left hip: (13) Status post left hip replacement: (14) Gout: (15) Depression: (16) Insomnia: Plan Radha Hare is a 73y/oF with PMHx significant for dyslipidemia, idiopathic chronic gout of multiple sites without tophus, allergic rhinitis, HTN, CAD, chronic HFpEF, TIA, hx of LUCAS 12/2023 multiple gastric ulcers, vitamin B12 deficiency, CKD stage III, osteoarthritis, depression who presented to the ED for evaluation of nausea and vomiting, abdominal pain x 1 week. Bilateral ureteral calculi Atrophic right kidney Presented with nausea and vomiting, abdominal pain x [address] abd/pelvis on admission noting calculi, post op hematomas/seromas UA was not suggestive of infection, no reflex urine Cx Urology consulted, appreciate recs -Patient with bilateral obstructing stones with significant obstruction on the right and atrophic appearing right kidney. -s/p bilateral stent placement on January 22 -Maintain Quintero catheter for now. Depending on clinical course, can likely have void trial prior to discharge. - Will arrange outpatient follow-up for stone and stent management. 01/27- episodes of N/V once more. CT abd pelvis repeated, no acute cause. Stable at this time Intractable N/V Abdominal Pain GI upset GI consulted, appreciate recs -pending EGD on 01/31, NPO after midnight Antiemetics as needed Resistant HTN Pt with known History Follows with Nephrology Original regimen of amlodipine 10, coreg 25mg BID, hydralazine 50mg TID, spironolactone 25mg. Coreg was switched to labetalol 100mg BID IV hydralazine 5mg prn Echo with EF 55-60%, mild LVH and Grade 1 diastolic dysfunction Nephrology consulted on 01/27 for further recs -renal US pending to rule out progressing renal artery stenosis -spironolactone increased to 50mg daily -started on losartan 25mg daily -close vascular followup for renal artery stenosis 01/29- started on losartan 25mg daily. 01/30- nephrology monitoring BP, avoiding aggressive titration of meds. BP improved but still significantly elevated Prolonged QTC EKG on admission noting prolonged qtc at 600 Repeat EKGs noting improvement from 600-->534--->493 avoid qtc prolonging agents Daily EKG Obstructive CAD Hx of STEMI s/p pLAD stent SMA stenosis s/p stent Continue DAPT Chronic Heart Failure with preserved EF LVEF 54% Echo with EF 55-60%, mild LVH and Grade 1 diastolic dysfunction chronic anemia Iron Deficiency Anemia Acute Blood Loss Anemia baseline ~8,on iron supplementation s/p 1U pRBC transfusion on 01/25 Stable LUCAS on CKD IV follows with nephrology Dr Clark avoid nephrotoxic agents Currently improved Left hip hematoma Chronic pain s/p left hip arthroplasty 09/2023 chronic hematoma, slow resolution still with notable discomfort/weakness hgb stable PT/OT HLD continue statin Hypophosphatemia Replete as needed Hypomagnesemia Replete as needed Demand ischemia Stable, doubt ACS DVT Prophylaxis: SCDs Code Status: Full Code Diet: HH Dispo: PT recommending return home Admission and Anticipated Discharge Date Admission Date: January 22, 2024 Subjective Pt was seen sitting in johnnie at bedside. Still having headaches. No vomitting this morning but still feeling nauseous Denied acute concerns. Review of Systems Review of Systems: All systems reviewed & are unremarkable except as noted in Subjective Physical Exam Physical Exam: General: Alert, oriented. No acute distress Skin: No noted rashes or bruises Psych: Appropriate mood and affect Neuro: difficulty with movements, weak HEENT: NC/AT CV: RRR Resp: Breath sounds clear bilaterally, no increased effort of breathing Abdomen: Soft, tender in epigastrium, LLQ, nondistended. Extremities: No edema in lower extremities bilaterally. Results & Data Results & Data Vital Signs (Past 12 Hours) Vital Signs Temp Pulse Pulse Resp BP Pulse Ox O2 Del Method 01/31/24 10:59 37.0 C 64 18 155/52 H 96 Room Air 01/31/24 07:49 65 01/31/24 07:27 37.0 C 69 18 183/61 H 94 Room Air 01/31/24 04:00 36.7 C 69 18 163/61 H 95 Room Air (2) Nausea & vomiting Vomiting type: unspecified Qualified Code(s): R11.2 - Nausea with vomiting, unspecified (3) Abdominal pain Abdominal location: unspecified location Qualified Code(s): R10.9 - Unspecified abdominal pain (6) HTN (hypertension) Hypertension type: unspecified Qualified Code(s): I10 - Essential (primary) hypertension (7) Coronary artery disease Associated angina: unspecified whether angina present Coronary Disease- Associated Artery/Lesion type: unspecified vessel or lesion type [place] vs. transplanted heart: [place] heart Qualified Code(s): I25.10 - Atherosclerotic heart disease of [place] coronary artery without angina pectoris (8) Hyperlipidemia Hyperlipidemia type: unspecified Qualified Code(s): E78.5 - Hyperlipidemia, unspecified (9) Anemia Anemia type: iron deficiency Iron deficiency anemia type: unspecified iron deficiency Qualified Code(s): D50.9 - Iron deficiency anemia, unspecified (10) Chronic back pain Back pain laterality: unspecified Back pain location: back pain in unspecified location Qualified Code(s): M54.9 - Dorsalgia, unspecified; G89.29 - Other chronic pain (12) Hematoma of left hip Encounter type: sequela Qualified Code(s): S70.02XS - Contusion of left hip, sequela (14) Gout Chronicity: chronic Gout etiology: unspecified cause Gout site: multiple sites Qualified Code(s): M1A.09X0 - Idiopathic chronic gout, multiple sites, without tophus (tophi) (15) Depression Depression Type: unspecified Qualified Code(s): F32.A - Depression, unspecified (16) Insomnia Insomnia type: unspecified Qualified Code(s): G47.00 - Insomnia, unspecified
[2024-02-01 06:32] LABS: Basophils # (auto) 0.06 K/uL (0.00-0.20); Basophils % (auto) 1.1 %; Eosinophils # (auto) 0.26 K/uL (0.00-0.50); Eosinophils % (auto) 4.9 %; Hematocrit (blood only) 27.3 % (37.0-47.0); Hemoglobin 8.6 g/dl (12.0-16.0); Immature Granulocytes # (auto) 0.04 K/uL (0.01-0.20); Immature Granulocytes % (auto) 0.8 %; Lymphocytes # (auto) 1.58 K/uL (1.20-3.40); Lymphocytes % (auto) 29.9 %; Mean Corpuscular Hgb Conc 31.5 g/dL (32.0-36.0); Mean Corpuscular Volume 95.1 fL (80.0-100.0); Mean Platelet Volume 12.3 fL (9.4-12.4); Monocytes # (auto) 0.74 K/uL (0.11-0.59); Neutrophils # (auto) 2.61 K/uL (1.40-6.50); Neutrophils % (auto) 49.3 %; Platelet Count 181 K/uL (130-400); RDW Coefficient of Variation 16.8 % (11.5-14.5); RDW Standard Deviation 57.9 fL (36.4-46.3); Red Blood Count 2.87 M/uL (4.20-5.40); White Blood Count 5.29 K/ul (4.8-10.8)
[2024-02-01 06:49] LABS: Albumin Globulin Ratio 1.1 (0.9-2); Albumin Level 2.9 gm/dl (3.4-5.0); BUN Creatinine Ratio 13.4 (10-20); Bilirubin,Total 0.7 mg/dl (0.2-1.0); Creatinine Clr Calc Pharmacy 42.7 ml/min; Est GFR (Non-African American) 48.4 ml/min; Globulin 2.6 gm/dl (2.5-4.0); Magnesium 1.8 mg/dl (1.7-2.4); Phosphorus 3.6 mg/dl (2.5-4.9); Potassium 3.5 mmol/L (3.5-5.1); Total Protein 5.5 gm/dl (6.0-8.3)
--- NOTE | 2024-02-01 09:17 | History & Physical Bridge Note ---
Date of Service February 01, 2024 History & Physical Bridge Note I have reviewed the History & Physical and in the interval since the performance of the History & Physical I have noted the following changes of clinical significance: no changes noted Keep NPO and proceed with EGD today.
--- NOTE | 2024-02-01 10:21 | Nephrology Progress Note ---
Date of Service February 01, 2024 Assessment & Plan (1) Resistant hypertension: Plan: Volume status acceptable. Tolerating current therapy well. Continue amlodipine 10 mg daily, HCTZ 25 mg daily, spironolactone 50 mg daily, and losartan 25 mg daily. Carvedilol has been converted to labetalol. Heart rate in the 60's. BP reasonably improved yesterday. Remains on TID hydralazine. Avoid aggressive titration of medications and continue to monitor on current therapy to be dosed once EGD completed. Radha has known cerebrovascular disease and carotid stenosis s/p CEA. She has not tolerated BP <130 mmHg systolic due to presyncope in the past. Her coagulant dipper established a reasonable SBP goal of 140-150 mmHg. Repeat metabolic profile tomorrow AM. (2) LUCAS (acute kidney injury): Plan: CKD with known atrophic R kidney. Creatinine remains normal today but slightly increased. Electrolytes acceptable. Volume status euvolemic. Medications are appropriate for kidney function. Radha has a notably history of multiple episodes of LUCAS. She has significant calcific arthrosclerotic disease with suspected bilateral renal artery stenosis on MRA in 2019. Renal duplex updated this admission was limited or of low quality. Elevated peak velocity was not appreciated in the left renal artery. However, close outpatient follow up with vascular is encouraged. Angiography may be considered for definitive diagnosis in the future. (3) Bilateral ureteral calculi: Plan: s/p cystoscopy with bilateral retrograde pyelogram and bilateral ureteral stent insertion on January 22. Right ureteroscopy with laser lithotripsy and basket stone extraction performed at that time. Quintero remains in place. Management per urology. Admission and Anticipated Discharge Date Admission Date: January 22, 2024 Subjective No acute events overnight. Radha reports that she started to feel unwell yesterday afternoon. Symptoms improved in the evening. She suspects the symptoms were due to her blood pressure being elevated. She describes feeling uncomfortable and anxious. She is concerned about carvedilol dosing. The medication was being provided TID while she was at [facility]. She experienced some mild nausea this AM but otherwise feels well. Review of Systems Review of Systems: All systems reviewed & are unremarkable except as noted in HPI & below Physical Exam Constitutional: well developed; no acute distress Eyes: + anicteric sclerae; no corneal abnormal ity ENMT: Mouth: no oral mucosal abnormality and oral mucous membranes not dry Neck: normal visual inspection and trachea midline Respiratory: normal respiratory effort Auscultation: lungs clear to auscultation bilaterally Cardiovascular: Rate/Rhythm: regular rate Heart Sounds: normal S1 and normal S2 Extremities: no edema Gastrointestinal (Abdomen): Inspection/Auscultation: abdomen normal to inspection; abdomen not distended Percussion/Palpation: + abdomen tender (epigastric and RUQ) and abdomen soft; no guarding and abdomen not rigid Musculoskeletal: Extremities: no cyanosis and no clubbing Skin: normal turgor; no lesions Neurologic: Motor/Sensory: no tremor and no asterixis Psychiatric: Orientation: alert and oriented x 3 Results & Data Vital Signs (Past 12 Hours) Vital Signs Temp Pulse Pulse Resp BP Pulse Ox O2 Del Method 02/01/24 08:06 Room Air 02/01/24 07:38 36.6 C 68 18 172/57 H 96 Room Air 02/01/24 07:20 62 02/01/24 04:08 36.3 C L 63 20 164/53 H 95 Room Air 01/31/24 23:47 36.7 C 63 20 153/53 H 95 Room Air Laboratory Results Laboratory Results - last 24 hr 02/01/24 05:52 WBC 5.29 RBC 2.87 L Hgb 8.6 L Hct 27.3 L MCV 95.1 MCH 30.0 MCHC 31.5 L RDW Std Deviation 57.9 H RDW Coeff of Geeta 16.8 H Plt Count 181 MPV 12.3 Immature Gran % (Auto) 0.8 Neut % (Auto) 49.3 Lymph % (Auto) 29.9 Nuckolls % (Auto) 14.0 Eos % (Auto) 4.9 Baso % (Auto) 1.1 Neut # (Auto) 2.61 Lymph # (Auto) 1.58 Nuckolls # (Auto) 0.74 H Eos # (Auto) 0.26 Baso # (Auto) 0.06 Immature Gran # (Auto) 0.04 Sodium 139 Potassium 3.5 Chloride 106 Carbon Dioxide 26 Anion Gap 7 BUN 15 Creatinine 1.12 Est Cr Clr Drug Dosing 42.7 Est GFR ( Amer) 56.0 Est GFR (Non-Af Amer) 48.4 BUN/Creatinine Ratio 13.4 Glucose 93 Calcium 9.0 Phosphorus 3.6 Magnesium 1.8 Total Bilirubin 0.7 AST 12 L ALT 8 Alkaline Phosphatase 64 Total Protein 5.5 L Albumin 2.9 L Globulin 2.6 Albumin/Globulin Ratio 1.1 PG Care Time/CCT Total # of Minutes Spent Total Time Spent with Patient: Total time spent is greater than 50% in coordination of care (as documented) at patient's floor/unit and/or counseling patient: Coding Level of Care Code 81440 SUB INP/OBS CARE 3/50MIN Diagnoses Resistant hypertension I1A.0 LUCAS (acute kidney injury) N17.9 Bilateral ureteral calculi N20.1
[2024-02-01] MEDS: ONDANSETRON INJ 2 MG/ML 2 ML VIAL IV PRN (10:51)
--- NOTE | 2024-02-01 12:49 | Gastrointestinal Consultation ---
Date of Consultation January 30, 2024 Assessment & Plan (1) Vomiting: Plan 1. Persistent vomiting. Differential diagnosis: Gastroesophageal reflux, gastroparesis, medications induced (hydrocodone), rule out malignancy. Continue PPI and Phenergan. Zofran as needed 4 mg every 6 hours. Schedule EGD for Thursday, February 01, 2024. History of Present Illness Reason for Consultation: Persistent vomiting Attending Physician: Jaja Cruz MD History of Present Illness Persistent nausea and vomiting for several weeks. Complains of early satiety and epigastric discomfort. Vomits with bile, mucus but also with food. Lost about 30 pounds. Decreased food intake due to nausea and early satiety. Denies hematemesis. Denies diarrhea or constipation. Denies significant heartburn or dysphagia. Currently on pantoprazole 40 mg daily p.o., and Phenergan without much improvement. The most recent upper endoscopy was in 2017 and was unremarkable. The patient is also on hydrocodone for chronic back pain. Underwent recent ureteral stone removal through cystoscopy with ureteral stent placement. Status post recent left hip replacement. S/p NSTEMI coronary artery disease stents August 2023. This was performed at [facility]. The patient has also elevated blood pressure which is difficult to control. She is receiving multiple medications for blood pressure. Chronic anemia hemoglobin between 7 and 10. Iron saturation was 10% in December 2023, currently 15%. Likely iron deficiency. Most recent colonoscopy was within the last 5 years, reportedly small polyps were removed. The procedure was performed at another institution. Allergies Allergy/AdvReac Type Severity Reaction Status Date / Time oxycodone AdvReac Severe syncope, Verified 01/22/24 16:57 low bp nickel AdvReac Intermediate rash and Verified 01/22/24 16:57 skin turns green Home Medications Medication Instructions Recorded Confirmed Type multivitamin 1 tab PO QAM #30 tabs 09/30/23 01/22/24 Rx polyethylene glycol 3350 17 gram 17 g PO DAILY 12/14/23 01/22/24 History oral powder packet (Miralax) allopurinol 300 mg tablet 300 mg PO DAILY #90 tabs 12/24/23 01/22/24 Rx amlodipine 10 mg tablet 10 mg PO DAILY #90 tabs 12/24/23 01/22/24 Rx aspirin 81 mg chewable tablet 81 mg PO DAILY 01/22/24 01/22/24 History atorvastatin 80 mg tablet 80 mg PO DAILY 01/22/24 01/22/24 History carvedilol 25 mg tablet 25 mg PO BID 01/22/24 01/22/24 History citalopram 40 mg tablet 40 mg PO .QHS 01/22/24 01/22/24 History clopidogrel 75 mg tablet 75 mg PO DAILY 01/22/24 01/22/24 History ferrous sulfate 325 mg (65 mg 325 mg PO DAILY 01/22/24 01/22/24 History iron) tablet (FeroSul) gabapentin 300 mg capsule 300 mg PO DAILY 01/22/24 01/22/24 History hydralazine 50 mg tablet 50 mg PO TID 01/22/24 01/22/24 History hydrocodone 7.5 mg-acetaminophen 1 tab PO TID PRN Chronic back pain 01/22/24 01/22/24 History 325 mg tablet nitroglycerin 0.4 mg sublingual 0.4 mg sublingual .Q5MIN PRN Chest 01/22/24 01/22/24 History tablet Pain omeprazole 40 mg capsule,delayed 40 mg PO DAILY 01/22/24 01/22/24 History release spironolactone 25 mg tablet 25 mg PO DAILY 01/22/24 01/22/24 History trazodone 100 mg tablet 100 mg PO .QHS Sleep 01/22/24 01/22/24 History Patient History Medical History Acute pain of left hip Hypertensive urgency Renal artery stenosis Neck pain Carotid artery stenosis Diverticular disease Surgical History History of percutaneous coronary intervention History of CEA (carotid endarterectomy) History of arthroplasty of right knee History of back surgery History of carpal tunnel surgery right H/O left cataract extraction 04/29/18-2mg IV versed given without issues History of bilateral tubal ligation History of arthroscopy chencho knee History of colonoscopy w/ polypectomy History of endoscopic sinus surgery Family History Mother Family history of early CAD Social History Smoking Status: Never smoker Second Hand Exposure: No; Do You Dip or Chew Tobacco: No; Hx Alcohol Use: No Hx Substance Use: No Preferred Language: Ch[place] Communication Ability: Effective Visual Impairment: No Limitations Ribber Required: No Beliefs That Will Affect Care: None marital status: Single Current Living Situation: Alone Feels Safe at Home: Yes Assistive Devices: Walker Review of Systems Constitutional: About 30 pound weight loss over the last 2 to 3 months. Denies chills or fever. Cardiovascular: Additional Comments: Denies chest pain, denies palpitations. Gastrointestinal: As per history of present illness. Musculoskeletal: Complains of chronic back pain, multiple joint pains. Neurologic: Denies focal weakness, denies speech or visual disturbance. Physical Exam Physical Exam: Appears comfortable. Constitutional: WD/WN, vitals as above ENMT: Normal oral mucosa, no jugular venous distention, neck is supple. Respiratory: Clear without wheezing. Cardiovascular: Regular without murmur. Gastrointestinal (Abdomen): Soft with mild upper abdominal tenderness on deep palpation without guarding or rebound. No organomegaly, no ascites. Neurologic: Oriented x 3, grossly no focal abnormalities. Speech is intact. Results & Data Vital Signs (Past 12 Hours) Vital Signs Temp Pulse Pulse Resp BP Pulse Ox O2 Del Method 01/30/24 11:56 37.0 C 75 18 182/57 H 95 Room Air 01/30/24 07:33 72 01/30/24 07:17 37.7 C H 76 18 198/53 H 94 Room Air 01/30/24 03:41 36.9 C 76 18 193/62 H 94 Room Air Laboratory Results Laboratory data reviewed. Diagnostic Findings Recent CT scan of the abdomen and pelvis reviewed. Medications Administered Medications reviewed.
--- NOTE | 2024-02-01 12:50 | Gastrointestinal Consultation ---
Date of Consultation January 30, 2024 History of Present Illness Reason for Consultation: Persistent vomiting, 30 pound weight loss. Attending Physician: Jaja Cruz MD History of Present Illness About 2 to 3 months persistent nausea and vomiting. The patient decreased food intake. Lost about 30 pounds. Complains of epigastric fullness and epigastric pain. Denies much heartburn. No recent endoscopy. Allergies Allergy/AdvReac Type Severity Reaction Status Date / Time oxycodone AdvReac Severe syncope, Verified 01/22/24 16:57 low bp nickel AdvReac Intermediate rash and Verified 01/22/24 16:57 skin turns green Home Medications Medication Instructions Recorded Confirmed Type multivitamin 1 tab PO QAM #30 tabs 09/30/23 01/22/24 Rx polyethylene glycol 3350 17 gram 17 g PO DAILY 12/14/23 01/22/24 History oral powder packet (Miralax) allopurinol 300 mg tablet 300 mg PO DAILY #90 tabs 12/24/23 01/22/24 Rx amlodipine 10 mg tablet 10 mg PO DAILY #90 tabs 12/24/23 01/22/24 Rx aspirin 81 mg chewable tablet 81 mg PO DAILY 01/22/24 01/22/24 History atorvastatin 80 mg tablet 80 mg PO DAILY 01/22/24 01/22/24 History carvedilol 25 mg tablet 25 mg PO BID 01/22/24 01/22/24 History citalopram 40 mg tablet 40 mg PO .QHS 01/22/24 01/22/24 History clopidogrel 75 mg tablet 75 mg PO DAILY 01/22/24 01/22/24 History ferrous sulfate 325 mg (65 mg 325 mg PO DAILY 01/22/24 01/22/24 History iron) tablet (FeroSul) gabapentin 300 mg capsule 300 mg PO DAILY 01/22/24 01/22/24 History hydralazine 50 mg tablet 50 mg PO TID 01/22/24 01/22/24 History hydrocodone 7.5 mg-acetaminophen 1 tab PO TID PRN Chronic back pain 01/22/24 01/22/24 History 325 mg tablet nitroglycerin 0.4 mg sublingual 0.4 mg sublingual .Q5MIN PRN Chest 01/22/24 01/22/24 History tablet Pain omeprazole 40 mg capsule,delayed 40 mg PO DAILY 01/22/24 01/22/24 History release spironolactone 25 mg tablet 25 mg PO DAILY 01/22/24 01/22/24 History trazodone 100 mg tablet 100 mg PO .QHS Sleep 01/22/24 01/22/24 History Patient History Medical History Acute pain of left hip Hypertensive urgency Renal artery stenosis Neck pain Carotid artery stenosis Diverticular disease Surgical History History of percutaneous coronary intervention History of CEA (carotid endarterectomy) History of arthroplasty of right knee History of back surgery History of carpal tunnel surgery right H/O left cataract extraction 04/29/18-2mg IV versed given without issues History of bilateral tubal ligation History of arthroscopy chencho knee History of colonoscopy w/ polypectomy History of endoscopic sinus surgery Family History Mother Family history of early CAD Social History Smoking Status: Never smoker Second Hand Exposure: No; Do You Dip or Chew Tobacco: No; Hx Alcohol Use: No Hx Substance Use: No Preferred Language: Japanese Communication Ability: Effective Visual Impairment: No Limitations [employer] Supervisor Required: No Beliefs That Will Affect Care: None marital status: Single Current Living Situation: Alone Feels Safe at Home: Yes Assistive Devices: Walker Results & Data Vital Signs (Past 12 Hours) Vital Signs Temp Pulse Pulse Resp BP Pulse Ox O2 Del Method 01/30/24 11:56 37.0 C 75 18 182/57 H 95 Room Air 01/30/24 07:33 72 01/30/24 07:17 37.7 C H 76 18 198/53 H 94 Room Air 01/30/24 03:41 36.9 C 76 18 193/62 H 94 Room Air
--- NOTE | 2024-02-01 13:02 | Anesthesiology Consultation ---
Date of Service February 01, 2024 Assessment & Plan Chart Review Chart Review: Acceptable Risk for Surgery and Patient NOT seen in Pre Admission Testing Consults Requested none History Surgery Operation Date: 01/23/24 07:30 Proposed Procedures p Ureteral Stent Insertion/Removal(Bilateral) - Jose Angel Diaz DO Operation Date: 02/01/24 16:45 Proposed Procedures p Esophagogastroduodenoscopy Devora - Mello Lozoya MD Height/Weight Height: 5 ft 4 in Weight: 71.3 kg Allergies Allergy/AdvReac Type Severity Reaction Status Date / Time oxycodone AdvReac Severe syncope, Verified 01/22/24 16:57 low bp nickel AdvReac Intermediate rash and Verified 01/22/24 16:57 skin turns green Medications Home Medications Medication Instructions Recorded Confirmed Last Taken multivitamin 1 tab PO QAM #30 tabs 09/30/23 01/22/24 Unknown polyethylene glycol 3350 17 gram 17 g PO DAILY 12/14/23 01/22/24 Unknown oral powder packet (Miralax) allopurinol 300 mg tablet 300 mg PO DAILY #90 tabs 12/24/23 01/22/24 Unknown amlodipine 10 mg tablet 10 mg PO DAILY #90 tabs 12/24/23 01/22/24 Unknown aspirin 81 mg chewable tablet 81 mg PO DAILY 01/22/24 01/22/24 Unknown atorvastatin 80 mg tablet 80 mg PO DAILY 01/22/24 01/22/24 Unknown carvedilol 25 mg tablet 25 mg PO BID 01/22/24 01/22/24 Unknown citalopram 40 mg tablet 40 mg PO .QHS 01/22/24 01/22/24 Unknown clopidogrel 75 mg tablet 75 mg PO DAILY 01/22/24 01/22/24 Unknown ferrous sulfate 325 mg (65 mg 325 mg PO DAILY 01/22/24 01/22/24 Unknown iron) tablet (FeroSul) gabapentin 300 mg capsule 300 mg PO DAILY 01/22/24 01/22/24 Unknown hydralazine 50 mg tablet 50 mg PO TID 01/22/24 01/22/24 Unknown hydrocodone 7.5 mg-acetaminophen 1 tab PO TID PRN Chronic back pain 01/22/24 01/22/24 Unknown 325 mg tablet nitroglycerin 0.4 mg sublingual 0.4 mg sublingual .Q5MIN PRN Chest 01/22/24 01/22/24 Unknown tablet Pain omeprazole 40 mg capsule,delayed 40 mg PO DAILY 01/22/24 01/22/24 Unknown release spironolactone 25 mg tablet 25 mg PO DAILY 01/22/24 01/22/24 Unknown trazodone 100 mg tablet 100 mg PO .QHS Sleep 01/22/24 01/22/24 Unknown Active Medications Generic Name Dose Route Start Last Admin Trade Name Neda PRN Reason Stop Dose Admin Acetaminophen 650 mg 01/22/24 17:01 01/31/24 20:18 Acetaminophen 325 Mg Tab PO 02/21/24 17:00 650 mg Q4H PRN Administration pain/fever Hydrocodone Bitart/Acetaminophen 1 tab 01/22/24 17:12 01/29/24 16:07 Hydrocodone/Acetaminophen 7.5/325mg Tab PO 02/05/24 17:11 1 tab TID PRN Administration Chronic back pain Allopurinol 300 mg 01/23/24 09:00 01/31/24 09:15 Allopurinol 300 Mg Tab PO 02/22/24 08:59 300 mg DAILY JUDITH Administration Amlodipine Besylate 10 mg 01/29/24 09:00 01/31/24 09:15 Amlodipine Besylate 5 Mg Tab PO 02/28/24 08:59 10 mg DAILY JUDITH Administration Aspirin 81 mg 01/23/24 09:00 01/31/24 09:14 Aspirin 81 Mg Chew PO 02/22/24 08:59 81 mg DAILY JUDITH Administration Atorvastatin Calcium 80 mg 01/23/24 09:00 01/31/24 09:15 Atorvastatin 40 Mg Tab PO 02/22/24 08:59 80 mg DAILY JUDITH Administration Carvedilol 25 mg 01/22/24 21:00 01/28/24 20:34 Carvedilol 25 Mg Tab PO 02/21/24 20:59 25 mg BID JUDITH Administration Clopidogrel Bisulfate 75 mg 01/23/24 09:00 01/31/24 09:10 Clopidogrel Bisulfate 75 Mg Tab PO 02/22/24 08:59 75 mg DAILY JUDITH Administration Ferrous Sulfate 325 mg 01/23/24 09:00 01/31/24 09:16 Ferrous Sulfate 325 Mg Tab PO 02/22/24 08:59 325 mg DAILY JUDITH Administration Gabapentin 300 mg 01/23/24 09:00 01/31/24 09:14 Gabapentin 300 Mg Cap PO 02/22/24 08:59 300 mg DAILY JUDITH Administration Hydralazine HCl 50 mg 01/22/24 21:00 01/31/24 20:18 Hydralazine Tab 50 Mg Tab PO 02/21/24 20:59 50 mg TID JUDITH Administration Hydralazine HCl 5 mg 01/28/24 13:20 01/29/24 22:59 Hydralazine Hcl 20 Mg/Ml Vial IV 02/27/24 13:19 5 mg Q6H PRN Administration SBP>160 Hydrochlorothiazide 25 mg 01/28/24 15:45 01/31/24 09:16 Hydrochlorothiazide 25 Mg Tab PO 02/27/24 15:44 25 mg QAM JUDITH Administration Hydromorphone HCl 0.25 mg 01/22/24 17:18 01/25/24 22:47 Hydromorphone Inj 0.5 Mg/0.5 Ml Syr IV 02/05/24 17:17 0.25 mg Q6H PRN Administration Severe Pain (Scale 7, 8, 9,10) Promethazine HCl 6.25 mg/ 50.25 mls @ 201 mls/hr 01/22/24 17:42 01/30/24 10:50 Sodium Chloride IV 02/21/24 17:41 Infused Q6H PRN Infusion Nausea And Vomiting Labetalol HCl 100 mg 01/29/24 05:40 01/31/24 20:18 Labetalol Hcl 100 Mg Tab PO 02/28/24 05:39 100 mg BID JUDITH Administration Losartan Potassium 25 mg 01/30/24 11:30 01/31/24 09:13 Losartan Potassium 25 Mg Tab PO 02/29/24 11:29 25 mg QAM JUDITH Administration Magnesium Oxide 400 mg 01/29/24 21:00 01/31/24 20:18 Magnesium Oxide 400 Mg Tab PO 02/28/24 20:59 400 mg BID JUDITH Administration Ondansetron HCl 4 mg 01/30/24 12:39 02/01/24 10:51 Ondansetron Inj 2 Mg/Ml 2 Ml Vial IV 02/29/24 12:38 4 mg Q6H PRN Administration Nausea And Vomiting Pantoprazole Sodium 40 mg 01/23/24 09:00 01/31/24 09:13 Pantoprazole 40 Mg Tab PO 02/22/24 08:59 40 mg DAILY JUDITH Administration Polyethylene Glycol 17 gm 01/23/24 09:00 01/31/24 09:17 Polyethylene (Miralax) 17 Gm Pack PO 02/22/24 08:59 Not Given DAILY JUDITH Spironolactone 50 mg 01/30/24 09:00 01/31/24 09:14 Spironolactone 25 Mg Tab PO 02/29/24 08:59 50 mg DAILY JUDITH Administration Trazodone HCl 100 mg 01/22/24 21:00 01/31/24 21:04 Trazodone Hcl 100 Mg Tab PO 02/21/24 20:59 100 mg HS JUDITH Administration NPO Date Last Intake of Fluids: 01/22/24 Time Last Intake of Fluids: 18:00 Date Last Intake of Solids: 01/22/24 Time Last Intake of Solids: 18:00 Past Medical History Medical History (Updated 02/01/24 @ 12:54 by Manan Alexander MD) Vomiting Resistant hypertension Acute pain of left hip Hypertensive urgency Renal artery stenosis Neck pain Carotid artery stenosis Diverticular disease Past Family History Family History Mother Family history of early CAD Past Surgical History Surgical History History of percutaneous coronary intervention History of CEA (carotid endarterectomy) History of arthroplasty of right knee History of back surgery History of carpal tunnel surgery right H/O left cataract extraction 04/29/18-2mg IV versed given without issues History of bilateral tubal ligation History of arthroscopy chencho knee History of colonoscopy w/ polypectomy History of endoscopic sinus surgery Social History Smoking Status: Never smoker Do You Dip or Chew Tobacco: No Hx Alcohol Use: No Alcohol type: wine alcohol intake frequency: holidays/special occasions only Hx Substance Use: No substance use type: opiates Review of Systems Constitutional: as per Subjective / HPI Gastrointestinal: as per Subjective / HPI Genitourinary (Female): as per Subjective / HPI Physical Exam Vital Signs Last Vital Signs Temp 36.8 C 02/01/24 12:46 Pulse 68 02/01/24 12:46 Resp 18 02/01/24 12:46 BP 195/61 H 02/01/24 12:46 Pulse Ox 95 02/01/24 12:46 O2 Del Method Room Air 02/01/24 12:46 O2 Flow Rate 1 01/23/24 20:39 Constitutional WD/WN, vitals as above well developed; no acute distress Eyes + anicteric sclerae; no corneal abnormality ENMT external ear and nose normal, oropharynx normal Mouth: no oral mucosal abnormality, oral mucous membranes not dry and no dentition abnormality Thyromental Distance: > or= 3.5 Finger Breadths Mallampati Class: II Neck normal visual inspection and trachea midline Respiratory normal respiratory effort; no respiratory distress and no labored breathing Auscultation: lungs clear to auscultation bilaterally Cardiovascular RRR, no murmur, no edema Rate/Rhythm: regular rate and regular rhythm Heart Sounds: normal S1 and normal S2 Extremities: no edema Gastrointestinal (Abdomen) Inspection/Auscultation: abdomen normal to inspection; abdomen not distended Percussion/Palpation: + abdomen tender (epigastric and RUQ) and abdomen soft; no guarding and abdomen not rigid Musculoskeletal Spine: normal cervical ROM Extremities: extremities normal to inspection; no cyanosis and no clubbing Skin no rashes, warm and dry normal turgor; no lesions Neurologic moves all extremities and awake; no focal motor deficits Motor/Sensory: no tremor and no asterixis Psychiatric A+Ox3, euthymic affect Orientation: alert and oriented x 3 Affect: euthymic affect Testing Laboratory Results 02/01/24 05:52 02/01/24 05:52 Urine Color Yellow 01/22/24 15:13 Urine Appearance Clear (Clear) 01/22/24 15:13 Urine pH 6.5 (4.5-7.5) 01/22/24 15:13 Ur Specific [place] 1.035 (1.000-1.030) H 01/22/24 15:13 Urine Protein Trace (Negative) H 01/22/24 15:13 Urine Glucose (UA) Negative (Negative) 01/22/24 15:13 Urine Ketones Trace (Negative) H 01/22/24 15:13 Urine Nitrite Negative (Negative) 01/22/24 15:13 Ur Leukocyte Esterase Trace (Negative) H 01/22/24 15:13 Urine WBC (Auto) 0-5 /hpf (0-5) 01/22/24 15:13 Urine RBC (Auto) 0-2 /hpf (0-2) 01/22/24 15:13 U Hyaline Cast (Auto) 3-5 /lpf (0-2) H 01/22/24 15:13 U Epithel Cells (Auto) 0-2 /hpf (0-2) 01/22/24 15:13 Urine Bacteria (Auto) None Seen (None Seen) 01/22/24 15:13 Blood Type A Positive 01/26/24 15:27 Antibody Screen NEGATIVE 01/26/24 15:27 Electrocardiogram prolonged qt Echocardiogram Other Findings: + diastolic dysfunction Valvular Disease: + no significant valvular disease
--- NOTE | 2024-02-01 13:03 | Hospitalist Progress Note ---
Date of Service February 01, 2024 Assessment & Plan (1) Bilateral ureteral calculi: (2) Nausea & vomiting: (3) Abdominal pain: (4) Elevated troponin: (5) CKD (chronic kidney disease) stage 4, GFR 15-29 ml/min: (6) HTN (hypertension): (7) Coronary artery disease: (8) Hyperlipidemia: (9) Anemia: (10) Chronic back pain: (11) Left hip pain: (12) Hematoma of left hip: (13) Status post left hip replacement: (14) Gout: (15) Depression: (16) Insomnia: Plan Radha Hare is a 73y/oF with PMHx significant for dyslipidemia, idiopathic chronic gout of multiple sites without tophus, allergic rhinitis, HTN, CAD, chronic HFpEF, TIA, hx of LUCAS 12/2023 multiple gastric ulcers, vitamin B12 deficiency, CKD stage III, osteoarthritis, depression who presented to the ED for evaluation of nausea and vomiting, abdominal pain x 1 week. Bilateral ureteral calculi Atrophic right kidney Presented with nausea and vomiting, abdominal pain x [address] abd/pelvis on admission noting calculi, post op hematomas/seromas UA was not suggestive of infection, no reflex urine Cx Urology consulted, appreciate recs -Patient with bilateral obstructing stones with significant obstruction on the right and atrophic appearing right kidney. -s/p bilateral stent placement on January 22 -Maintain Quintero catheter for now. Depending on clinical course, can likely have void trial prior to discharge. - Will arrange outpatient follow-up for stone and stent management. 01/27- episodes of N/V once more. CT abd pelvis repeated, no acute cause. Stable at this time Intractable N/V Abdominal Pain GI upset GI consulted, appreciate recs -pending EGD on 01/31, NPO after midnight -EGD noting small hiatal hernia otherwise unremarkable -Per GI, gastroparesis diet with prn Reglan Antiemetics as needed Resistant HTN Pt with known History Follows with Nephrology Original regimen of amlodipine 10, coreg 25mg BID, hydralazine 50mg TID, spironolactone 25mg. Coreg was switched to labetalol 100mg BID IV hydralazine 5mg prn Echo with EF 55-60%, mild LVH and Grade 1 diastolic dysfunction Nephrology consulted on 01/27 for further recs -renal US pending to rule out progressing renal artery stenosis -spironolactone increased to 50mg daily -started on losartan 25mg daily -close vascular followup for renal artery stenosis 01/29- started on losartan 25mg daily. 01/30- nephrology monitoring BP, avoiding aggressive titration of meds. BP improved but still significantly elevated 01/31- slow titration Prolonged QTC EKG on admission noting prolonged qtc at 600 Repeat EKGs noting improvement from 600-->534--->493 avoid qtc prolonging agents Daily EKG Obstructive CAD Hx of STEMI s/p pLAD stent SMA stenosis s/p stent Continue DAPT Chronic Heart Failure with preserved EF LVEF 54% Echo with EF 55-60%, mild LVH and Grade 1 diastolic dysfunction chronic anemia Iron Deficiency Anemia Acute Blood Loss Anemia baseline ~8,on iron supplementation s/p 1U pRBC transfusion on 01/25 Stable LUCAS on CKD IV follows with nephrology Dr Clark avoid nephrotoxic agents Currently improved Left hip hematoma Chronic pain s/p left hip arthroplasty 09/2023 chronic hematoma, slow resolution still with notable discomfort/weakness hgb stable PT/OT HLD continue statin Hypophosphatemia Replete as needed Hypomagnesemia Replete as needed Demand ischemia Stable, doubt ACS DVT Prophylaxis: SCDs Code Status: Full Code Diet: HH Dispo: PT recommending return home Admission and Anticipated Discharge Date Admission Date: January 22, 2024 Subjective pt was seen sitting in chair near bed before EGD. States nauseous but otherwise denied acute concerns. Review of Systems Review of Systems: All systems reviewed & are unremarkable except as noted in Subjective Physical Exam Physical Exam: General: Alert, oriented. No acute distress Skin: No noted rashes or bruises Psych: Appropriate mood and affect Neuro: difficulty with movements, weak HEENT: NC/AT CV: RRR Resp: Breath sounds clear bilaterally, no increased effort of breathing Abdomen: Soft, tender in epigastrium, LLQ, nondistended. Extremities: No edema in lower extremities bilaterally. Results & Data Results & Data Vital Signs (Past 12 Hours) Vital Signs Temp Pulse Pulse Resp BP Pulse Ox O2 Del Method 02/01/24 12:46 36.8 C 68 18 195/61 H 95 Room Air 02/01/24 12:25 37.1 C 66 18 171/57 H 95 Room Air 02/01/24 08:06 Room Air 02/01/24 07:38 36.6 C 68 18 172/57 H 96 Room Air 02/01/24 07:20 62 02/01/24 04:08 36.3 C L 63 20 164/53 H 95 Room Air (2) Nausea & vomiting Vomiting type: unspecified Qualified Code(s): R11.2 - Nausea with vomiting, unspecified (3) Abdominal pain Abdominal location: unspecified location Qualified Code(s): R10.9 - Unspeci fied abdominal pain (6) HTN (hypertension) Hypertension type: unspecified Qualified Code(s): I10 - Essential (primary) hypertension (7) Coronary artery disease Associated angina: unspecified whether angina present Coronary Disease- Associated Artery/Lesion type: unspecified vessel or lesion type [place] vs. transplanted heart: [place] heart Qualified Code(s): I25.10 - Atherosclerotic heart disease of [place] coronary artery without angina pectoris (8) Hyperlipidemia Hyperlipidemia type: unspecified Qualified Code(s): E78.5 - Hyperlipidemia, unspecified (9) Anemia Anemia type: iron deficiency Iron deficiency anemia type: unspecified iron deficiency Qualified Code(s): D50.9 - Iron deficiency anemia, unspecified (10) Chronic back pain Back pain laterality: unspecified Back pain location: back pain in unspecifie d location Qualified Code(s): M54.9 - Dorsalgia, unspecified; G89.29 - Other chronic pain (12) Hematoma of left hip Encounter type: sequela Qualified Code(s): S70.02XS - Contusion of left hip, sequela (14) Gout Chronicity: chronic Gout etiology: unspecified cause Gout site: multiple sites Qualified Code(s): M1A.09X0 - Idiopathic chronic gout, multiple sites, without tophus (tophi) (15) Depression Depression Type: unspecified Qualified Code(s): F32.A - Depression, u nspecified (16) Insomnia Insomnia type: unspecified Qualified Code(s): G47.00 - Insomnia, unspecified
--- NOTE | 2024-02-01 13:23 | Gastroenterology Progress Note ---
Date of Service January 31, 2024 Assessment & Plan (1) Nausea & vomiting: Plan 1. Persistent vomiting, early satiety and a 20 pound weight loss. The patient is scheduled for an endoscopy tomorrow. Admission and Anticipated Discharge Date Admission Date: January 22, 2024 Subjective Nausea and vomiting have improved. The patient is able to eat however she is still complaining of early satiety and oral intake remains poor. No new symptoms. Review of Systems Review of Systems: No change in review of systems. Physical Exam Physical Exam: The patient is comfortable, not acutely distressed. ENMT: external ear and nose normal, oropharynx normal Neck: Neck is supple. Respiratory: Lungs clear, no wheezing. Cardiovascular: Heart regular without murmur. Gastrointestinal (Abdomen): Abdomen is soft without tenderness. Results & Data Vital Signs (Past 12 Hours) Vital Signs Temp Pulse Pulse Resp BP Pulse Ox O2 Del Method 01/31/24 10:59 37.0 C 64 18 155/52 H 96 Room Air 01/31/24 07:49 65 01/31/24 07:27 37.0 C 69 18 183/61 H 94 Room Air 01/31/24 04:00 36.7 C 69 18 163/61 H 95 Room Air (1) Nausea & vomiting Vomiting type: unspecified Qualified Code(s): R11.2 - Nausea with vomiting, unspecified
--- NOTE | 2024-02-01 13:53 | GI REPORT ---
[facility] Patient: ZHANE POTTER : 1950 Sex at : Female Age: 73 Years Procedure: Upper GI endoscopy Date: 02/01/2024 Attending Physician: Mello Lozoya MD Referring MD: Referred Self Indications: - Nausea with vomiting - Weight loss - Early satiety Medications: - Monitored Anesthesia Care Complications: - No immediate complications. Estimated Blood Loss: - Estimated blood loss: none. Procedure: - The egd scope was introduced through the mouth and advanced to the second part of the duodenum. - The upper GI endoscopy was accomplished without difficulty. Findings: - The examined esophagus was normal. - The Z-line was irregular and was found 37 cm from the incisors. - Normal mucosa was found in the entire examined stomach. - A small, 2 cm hiatal hernia was present. - The examined duodenum was normal. Impression: - Normal esophagus. - Z-line irregular, 37 cm from the incisors. - Normal mucosa was found in the entire stomach. - Small, 2 cm hiatal hernia. - Normal examined duodenum. - No specimens collected. Recommendation: - Observe patient's clinical course. Procedure Code(s): - 93367, Esophagogastroduodenoscopy, flexible, transoral; diagnostic, including collection of specimen(s) by brushing or washing, when performed (separate procedure) Diagnosis Code(s): - R11.2, Nausea with vomiting, unspecified - R63.4, Abnormal weight loss - R68.81, Early satiety - K22.89, Other specified disease of esophagus - K44.9, Diaphragmatic hernia without obstruction or gangrene CPT(R) - 202 copyright [employer]. All Rights Reserved. The CPT codes, CCI edits and ICD codes generated are intended as suggestions and were generated based on input data. These codes are preliminary and upon sr. media manager review may be revised to meet current compliance and payer requirements. The provider is responsible for the final determination of appropriate codes, and modifiers. Mello Lozoya M.D. This document has been electronically signed. Note Initiated:02/01/2024 Note Completed:02/01/2024 1:52 PM [id number]
--- NOTE | 2024-02-01 13:56 | Communication Note ---
Date of Service: February 01, 2024 EGD was normal. Suspect patient's symptoms are related to underlying gastroparesis . Possible etiologies: Pain medications, multiple recent surgeries and procedures. Recommend: Frequent/small feedings. Gastroparesis diet . Consultation with Nutrition Services. Low dose reglan 5- 10 mg , 30 minutes AC
--- NOTE | 2024-02-01 14:46 | Anesthesiology Progress Note ---
Date of Service February 01, 2024 Anesthesia Post Procedure Vital Signs Vital Signs: Temp Pulse Pulse Resp BP BP Pulse Ox 02/01/24 14:44 36.5 C 71 16 200/71 H 95 02/01/24 14:17 73 18 190/77 H 97 02/01/24 14:02 73 18 186/74 H 94 02/01/24 13:47 68 18 175/51 H 98 02/01/24 12:46 36.8 C 68 18 195/61 H 95 02/01/24 12:25 37.1 C 66 18 171/57 H 95 02/01/24 08:06 02/01/24 07:38 36.6 C 68 18 172/57 H 96 02/01/24 07:20 62 02/01/24 04:08 36.3 C L 63 20 164/53 H 95 01/31/24 23:47 36.7 C 63 20 153/53 H 95 01/31/24 22:01 64 01/31/24 19:50 37.1 C 70 20 185/54 H 95 01/31/24 15:41 37.4 C 74 18 172/56 H 95 01/31/24 15:21 61 O2 Del Method 02/01/24 14:44 Room Air 02/01/24 14:17 Room Air 02/01/24 14:02 Room Air 02/01/24 13:47 Room Air 02/01/24 12:46 Room Air 02/01/24 12:25 Room Air 02/01/24 08:06 Room Air 02/01/24 07:38 Room Air 02/01/24 07:20 02/01/24 04:08 Room Air 01/31/24 23:47 Room Air 01/31/24 22:01 01/31/24 19:50 Room Air 01/31/24 15:41 Room Air 01/31/24 15:21 Pain Intensity Generalized: Pain Intensity: 6 Transfer of Care Handoff Completed per policy Notes Mental Status: alert / awake / arousable Patient Amnestic to Procedure: Yes Nausea / Vomiting: adequately controlled Pain: adequately controlled Airway Patency, RR, SpO2: stable & adequate BP & HR: stable & adequate Hydration State: stable & adequate Anesthetic Complications: no major complications apparent and Pt Satisfied with anesthetic care
[2024-02-01] MEDS ORDERED: METOCLOPRAMIDE HCL INJ 5 MG/ML 2 ML VIAL IV PRN (15:27)
[2024-02-01] MEDS: PROPOFOL IV EMULSION 10 MG/ML 20 ML VIAL IV ONE (20:55)
[2024-02-01] MEDS: LIDOCAINE 2% 2 ML VIAL/AMP(20MG/ML) INFIL ONE (20:55)
[2024-02-02 07:57] LABS: Basophils # (auto) 0.05 K/uL (0.00-0.20); Basophils % (auto) 0.9 %; Eosinophils # (auto) 0.21 K/uL (0.00-0.50); Eosinophils % (auto) 3.7 %; Hematocrit (blood only) 27.4 % (37.0-47.0); Hemoglobin 8.4 g/dl (12.0-16.0); Immature Granulocytes # (auto) 0.04 K/uL (0.01-0.20); Immature Granulocytes % (auto) 0.7 %; Lymphocytes # (auto) 1.48 K/uL (1.20-3.40); Lymphocytes % (auto) 26.2 %; Mean Corpuscular Hemoglobin 29.5 pg (25.0-34.0); Mean Corpuscular Hgb Conc 30.7 g/dL (32.0-36.0); Mean Corpuscular Volume 96.1 fL (80.0-100.0); Mean Platelet Volume 12.3 fL (9.4-12.4); Monocytes # (auto) 0.71 K/uL (0.11-0.59); Monocytes % (auto) 12.6 %; Neutrophils # (auto) 3.16 K/uL (1.40-6.50); Neutrophils % (auto) 55.9 %; Platelet Count 187 K/uL (130-400); RDW Coefficient of Variation 16.8 % (11.5-14.5); Red Blood Count 2.85 M/uL (4.20-5.40); White Blood Count 5.65 K/ul (4.8-10.8)
[2024-02-02 08:20] LABS: Albumin Globulin Ratio 1.2 (0.9-2); BUN Creatinine Ratio 12.8 (10-20); Bilirubin,Total 0.6 mg/dl (0.2-1.0); Calcium 8.9 mg/dl (8.6-10.3); Creatinine Clr Calc Pharmacy 33.9 ml/min; Est GFR (African American) 42.4 ml/min; Est GFR (Non-African American) 36.6 ml/min; Globulin 2.6 gm/dl (2.5-4.0); Magnesium 1.8 mg/dl (1.7-2.4); Phosphorus 3.2 mg/dl (2.5-4.9); Potassium 3.8 mmol/L (3.5-5.1); Total Protein 5.6 gm/dl (6.0-8.3)
--- NOTE | 2024-02-02 09:33 | Nephrology Progress Note ---
Date of Service February 02, 2024 Assessment & Plan (1) Resistant hypertension: Plan: Volume status acceptable. Tolerating current therapy. BP improved. Creatinine rising 0.9-->1.4 mg/dL. Received amlodipine 10 mg, HCTZ 25 mg, spironolactone 50 mg, losartan 25 mg, hydralazine 25 mg, and labetalol 100 mg this AM. Heart rate in the 60's. I suspect adjustment in antihypertensives will be required if creatinine continues to rise. I will plan to hold HCTZ, spironolactone, and possibly losartan tomorrow AM. If kidney function stable, hold HCTZ and spironolactone and monitor. If rate of rise is greater than 0.3 mg/dL in the next 24 hours, suggest stopping losartan. Radha has known cerebrovascular disease and carotid stenosis s/p CEA. She has not tolerated BP <130 mmHg systolic due to presyncope in the past. 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 Repeat metabolic profile tomorrow AM. (2) LUCAS (acute kidney injury): Plan: CKD with known atrophic R kidney. Creatinine slightly elevated this AM. Electrolytes acceptable. Volume status euvolemic. Close monitoring will be provided. Radha has a notably history of multiple episodes of LUCAS. She has significant calcific arthrosclerotic disease with suspected bilateral renal artery stenosis on MRA in 2019. Renal duplex updated this admission was limited with low quality. Elevated peak velocity was not appreciated in the left renal artery. However, close outpatient follow up with vascular is encouraged. Angiography may be considered for definitive diagnosis in the future. (3) Bilateral ureteral calculi: Plan: s/p cystoscopy with bilateral retrograde pyelogram and bilateral ureteral stent insertion on January 22. Right ureteroscopy with laser lithotripsy and basket stone extraction performed at that time. Quintero remains in place. Management per urology. Admission and Anticipated Discharge Date Admission Date: January 22, 2024 Subjective No acute events overnight. Nausea improved. Tolerated some cereal for breakfast. Denies abdominal pain. Radha feels reasonably well overall this AM. She denies fluid retention or edema. She denies lightheadedness or dizziness. No chest pains or palpitations. Review of Systems Review of Systems: All systems reviewed & are unremarkable except as noted in HPI & below Physical Exam Constitutional: well developed; no acute distress Eyes: + anicteric sclerae; no corneal abnormal ity ENMT: Mouth: no oral mucosal abnormality and oral mucous membranes not dry Neck: normal visual inspection and trachea midline Respiratory: normal respiratory effort Auscultation: lungs clear to auscultation bilaterally Cardiovascular: Rate/Rhythm: regular rate Heart Sounds: normal S1 and normal S2 Extremities: no edema Musculoskeletal: Extremities: no cyanosis and no clubbing Skin: normal turgor; no lesions Neurologic: Motor/Sensory: no tremor and no asterixis Psychiatric: Orientation: alert and oriented x 3 Results & Data Vital Signs (Past 12 Hours) Vital Signs Temp Pulse Pulse Resp BP Pulse Ox O2 Del Method 02/02/24 07:26 36.7 C 66 16 166/48 H 93 Room Air 02/02/24 07:17 Room Air 02/02/24 07:05 66 02/02/24 04:24 37.1 C 68 20 161/49 H 92 Room Air 02/02/24 00:10 37.1 C 68 20 153/47 H 94 Room Air 02/01/24 22:29 67 Laboratory Results Laboratory Results - last 24 hr 02/02/24 07:22 WBC 5.65 RBC 2.85 L Hgb 8.4 L Hct 27.4 L MCV 96.1 MCH 29.5 MCHC 30.7 L RDW Std Deviation 59.0 H RDW Coeff of Geeta 16.8 H Plt Count 187 MPV 12.3 Immature Gran % (Auto) 0.7 Neut % (Auto) 55.9 Lymph % (Auto) 26.2 [place] % (Auto) 12.6 Eos % (Auto) 3.7 Baso % (Auto) 0.9 Neut # (Auto) 3.16 Lymph # (Auto) 1.48 [place] # (Auto) 0.71 H Eos # (Auto) 0.21 Baso # (Auto) 0.05 Immature Gran # (Auto) 0.04 Sodium 139 Potassium 3.8 Chloride 105 Carbon Dioxide 28 Anion Gap 6 BUN 18 Creatinine 1.41 H Est Cr Clr Drug Dosing 33.9 Est GFR ( Amer) 42.4 Est GFR (Non-Af Amer) 36.6 BUN/Creatinine Ratio 12.8 Glucose 95 Calcium 8.9 Phosphorus 3.2 Magnesium 1.8 Total Bilirubin 0.6 AST 14 ALT 9 Alkaline Phosphatase 64 Total Protein 5.6 L Albumin 3.0 L Globulin 2.6 Albumin/Globulin Ratio 1.2 PG Care Time/CCT Total # of Minutes Spent Total Time Spent with Patient: Total time spent is greater than 50% in coordination of care (as documented) at patient's floor/unit and/or counseling patient: Coding Level of Care Code 07581 SUB INP/OBS CARE 3/50MIN Diagnoses Resistant hypertension I1A.0 LUCAS (acute kidney injury) N17.9 Bilateral ureteral calculi N20.1
--- NOTE | 2024-02-02 14:49 | Gastroenterology Progress Note ---
Date of Service February 02, 2024 Assessment & Plan (1) Nausea & vomiting: Plan: Symptoms are resolving. Will follow as needed (2) Abdominal pain: Admission and Anticipated Discharge Date Admission Date: January 22, 2024 Subjective No N/V today. Early satiety improving. Tolerates diet. Review of Systems Review of Systems: All systems reviewed & are unremarkable except as noted in HPI & below Physical Exam Constitutional: WD/WN, vitals as above Respiratory: normal respiratory effort, lungs clear to auscultation Cardiovascular: RRR, no murmur, no edema Gastrointestinal (Abdomen): normal bowel sounds, soft, nontender, no hepatosplenomegaly Results & Data Results & Data Vital Signs (Past 12 Hours) Vital Signs Temp Pulse Pulse Resp BP Pulse Ox O2 Del Method 02/02/24 11:02 36.6 C 54 L 15 146/66 H 98 Room Air 02/02/24 07:26 36.7 C 66 16 166/48 H 93 Room Air 02/02/24 07:17 Room Air 02/02/24 07:05 66 02/02/24 04:24 37.1 C 68 20 161/49 H 92 Room Air Laboratory Results Hg stable 8.6 PG Care Time/CCT Total # of Minutes Spent Total Time Spent with Patient: Total time spent is greater than 50% in coordination of care (as documented) at patient's floor/unit and/or counseling patient: Coding Level of Care Code 18585 SUB INP/OBS CARE 2/35MIN Diagnoses Nausea & vomiting R11.2 Vomiting type: unspecified Abdominal pain R10.9 Abdominal location: unspecified location (1) Nausea & vomiting Vomiting type: unspecified Qualified Code(s): R11.2 - Nausea with vomiting, unspecified (2) Abdominal pain Abdominal location: unspecified location Qualified Code(s): R10.9 - Unspecified abdominal pain
--- NOTE | 2024-02-02 15:51 | Hospitalist Progress Note ---
Date of Service February 02, 2024 Assessment & Plan (1) Bilateral ureteral calculi: (2) Nausea & vomiting: (3) Abdominal pain: (4) Elevated troponin: (5) CKD (chronic kidney disease) stage 4, GFR 15-29 ml/min: (6) HTN (hypertension): (7) Coronary artery disease: (8) Hyperlipidemia: (9) Anemia: (10) Chronic back pain: (11) Left hip pain: (12) Hematoma of left hip: (13) Status post left hip replacement: (14) Gout: (15) Depression: (16) Insomnia: Plan Radha Hare is a 73y/oF with PMHx significant for dyslipidemia, idiopathic chronic gout of multiple sites without tophus, allergic rhinitis, HTN, CAD, chronic HFpEF, TIA, hx of LUCAS 12/2023 multiple gastric ulcers, vitamin B12 deficiency, CKD stage III, osteoarthritis, depression who presented to the ED for evaluation of nausea and vomiting, abdominal pain x 1 week. Bilateral ureteral calculi Atrophic right kidney Presented with nausea and vomiting, abdominal pain x [address] abd/pelvis on admission noting calculi, post op hematomas/seromas UA was not suggestive of infection, no reflex urine Cx Urology consulted, appreciate recs -Patient with bilateral obstructing stones with significant obstruction on the right and atrophic appearing right kidney. -s/p bilateral stent placement on January 22 -Maintain Quintero catheter for now. Depending on clinical course, can likely have void trial prior to discharge. - Will arrange outpatient follow-up for stone and stent management. 01/27- episodes of N/V once more. CT abd pelvis repeated, no acute cause. Stable at this time Intractable N/V Abdominal Pain GI upset GI consulted, appreciate recs -pending EGD on 01/31, NPO after midnight -EGD noting small hiatal hernia otherwise unremarkable -Per GI, gastroparesis diet with prn Reglan Antiemetics as needed Improving Resistant HTN Pt with known History Follows with Nephrology Original regimen of amlodipine 10, coreg 25mg BID, hydralazine 50mg TID, spironolactone 25mg. Coreg was switched to labetalol 100mg BID IV hydralazine 5mg prn Echo with EF 55-60%, mild LVH and Grade 1 diastolic dysfunction Nephrology consulted on 01/27 for further recs -renal US pending to rule out progressing renal artery stenosis -spironolactone increased to 50mg daily -started on losartan 25mg daily -close vascular followup for renal artery stenosis 01/29- started on losartan 25mg daily. 01/30- nephrology monitoring BP, avoiding aggressive titration of meds. BP improved but still significantly elevated 01/31- slow titration 02/01- now with LUCAS, BP improving, per Neprhology monitoring to determine if diuretics need to be discontinued Prolonged QTC EKG on admission noting prolonged qtc at 600 Repeat EKGs noting improvement from 600-->534--->493 avoid qtc prolonging agents Daily EKG Obstructive CAD Hx of STEMI s/p pLAD stent SMA stenosis s/p stent Continue DAPT Chronic Heart Failure with preserved EF LVEF 54% Echo with EF 55-60%, mild LVH and Grade 1 diastolic dysfunction chronic anemia Iron Deficiency Anemia Acute Blood Loss Anemia baseline ~8,on iron supplementation s/p 1U pRBC transfusion on 01/25 Stable LUCAS on CKD IV follows with nephrology Dr Clark avoid nephrotoxic agents Currently improved Left hip hematoma Chronic pain s/p left hip arthroplasty 09/2023 chronic hematoma, slow resolution still with notable discomfort/weakness hgb stable PT/OT HLD continue statin Hypophosphatemia Replete as needed Hypomagnesemia Replete as needed Demand ischemia Stable, doubt ACS DVT Prophylaxis: SCDs Code Status: Full Code Diet: HH Dispo: PT recommending return home Admission and Anticipated Discharge Date Admission Date: January 22, 2024 Subjective Pt was seen eating at bedside. Noted that she was feeling better today. Review of Systems Review of Systems: All systems reviewed & are unremarkable except as noted in Subjective Physical Exam Physical Exam: General: Alert, oriented. No acute distress Skin: No noted rashes or bruises Psych: Appropriate mood and affect Neuro: difficulty with movements, weak HEENT: NC/AT CV: RRR Resp: Breath sounds clear bilaterally, no increased effort of breathing Abdomen: Soft, tender in epigastrium, LLQ, nondistended. Extremities: No edema in lower extremities bilaterally. Results & Data Results & Data Vital Signs (Past 12 Hours) Vital Signs Temp Pulse Pulse Resp BP Pulse Ox O2 Del Method 02/02/24 15:10 36.7 C 64 15 176/56 H 98 Room Air 02/02/24 14:53 68 02/02/24 11:02 36.6 C 54 L 15 146/66 H 98 Room Air 02/02/24 07:26 36.7 C 66 16 166/48 H 93 Room Air 02/02/24 07:17 Room Air 02/02/24 07:05 66 02/02/24 04:24 37.1 C 68 20 161/49 H 92 Room Air (2) Nausea & vomiting Vomiting type: unspecified Qualified Code(s): R11.2 - Nausea with vomiting, unspecified (3) Abdominal pain Abdominal location: unspecified location Qualified Code(s): R10.9 - Unspecified abdominal pain (6) HTN (hypertension) Hypertension type: unspecified Qualified Code(s): I10 - Essential (primary) hypertension (7) Coronary artery disease Associated angina: unspecified whether angina present Coronary Disease- Associated Artery/Lesion type: unspecified vessel or lesion type [place] vs. transplanted heart: [place] heart Qualified Code(s): I25.10 - Atherosclerotic heart disease of [place] coronary artery without angina pectoris (8) Hyperlipidemia Hyperlipidemia type: unspecified Qualified Code(s): E78.5 - Hyperlipidemia, unspecified (9) Anemia Anemia type: iron deficiency Iron deficiency anemia type: unspecified iron deficiency Qualified Code(s): D50.9 - Iron deficiency anemia, unspecified (10) Chronic back pain Back pain laterality: unspecified Back pain location: back pain in unspecified location Qualified Code(s): M54.9 - Dorsalgia, unspecified; G89.29 - Other chronic pain (12) Hematoma of left hip Encounter type: sequela Qualified Code(s): S70.02XS - Contusion of left hip, sequela (14) Gout Chronicity: chronic Gout etiology: unspecified cause Gout site: multiple sites Qualified Code(s): M1A.09X0 - Idiopathic chronic gout, multiple sites, without tophus (tophi) (15) Depression Depression Type: unspecified Qualified Code(s): F32.A - Depression, unspecified (16) Insomnia Insomnia type: unspecified Qualified Code(s): G47.00 - Insomnia, unspecified
[2024-02-03 06:40] LABS: Hematocrit (blood only) 26.9 % (37.0-47.0); Hemoglobin 8.5 g/dl (12.0-16.0); Mean Corpuscular Hemoglobin 30.1 pg (25.0-34.0); Mean Corpuscular Hgb Conc 31.6 g/dL (32.0-36.0); Mean Corpuscular Volume 95.4 fL (80.0-100.0); Mean Platelet Volume 12.5 fL (9.4-12.4); Platelet Count 179 K/uL (130-400); RDW Coefficient of Variation 16.7 % (11.5-14.5); RDW Standard Deviation 57.5 fL (36.4-46.3); Red Blood Count 2.82 M/uL (4.20-5.40); White Blood Count 5.87 K/ul (4.8-10.8)
[2024-02-03 06:45] LABS: Calcium 8.9 mg/dl (8.6-10.3); Creatinine Clr Calc Pharmacy 35.1 ml/min; Est GFR (African American) 44.3 ml/min; Est GFR (Non-African American) 38.2 ml/min; Potassium 3.5 mmol/L (3.5-5.1)
--- NOTE | 2024-02-03 11:20 | Nephrology Progress Note ---
Date of Service February 03, 2024 Assessment & Plan (1) Resistant hypertension: Plan: Volume status acceptable. Tolerating current therapy. BP controlled. Creatinine stable at 1.3-1.4 mg/dL. Received amlodipine 10 mg, losartan 25 mg, hydralazine 25 mg, and labetalol 100 mg this AM. Appears to be tolerating current therapy well. Suggest continuing amlodipine 10 mg daily, hydralazine 25 mg TID, labetalol 100 mg daily, and losartan 25 mg daily as Rx for now. In the future, we may be able to titrate losartan and wean hydralazine. Radha has known cerebrovascular disease and carotid stenosis s/p CEA. She has not tolerated BP <130 mmHg systolic due to presyncope in the past. Her ensemble member established a reasonable SBP goal of 140-150 mmHg. (2) LUCAS (acute kidney injury): Plan: CKD with known atrophic R kidney.Electrolytes acceptable. Volume status euvolemic. Radha has a notably history of multiple episodes of LUCAS. She has significant calcific arthrosclerotic disease with suspected bilateral renal artery stenosis on MRA in 2019. Renal duplex updated this admission was limited with low quality. Elevated peak velocity was not appreciated in the left renal artery. However, close outpatient follow up with vascular is encouraged. Angiography may be considered for definitive diagnosis in the future. Follow up with Dr. Clark within 2 weeks of discharge. (3) Bilateral ureteral calculi: Plan: s/p cystoscopy with bilateral retrograde pyelogram and bilateral ureteral stent insertion on January 22. Right ureteroscopy with laser lithotripsy and basket stone extraction performed at that time. Quintero remains in place. Management per urology. Admission and Anticipated Discharge Date Admission Date: January 22, 2024 Subjective No acute events overnight. No complaints this AM. BP labile but overall acceptable. Radha denies symptoms associated with her BP. She feels that she is tolerating current therapy well. Review of Systems Review of Systems: All systems reviewed & are unremarkable except as noted in HPI & below Physical Exam Constitutional: well developed; no acute distress Eyes: + anicteric sclerae; no corneal abnormal ity ENMT: Mouth: no oral mucosal abnormality and oral mucous membranes not dry Neck: normal visual inspection and trachea midline Respiratory: normal respiratory effort Auscultation: lungs clear to auscultation bilaterally Cardiovascular: Rate/Rhythm: + bradycardic Heart Sounds: normal S1 and normal S2 Extremities: no edema Gastrointestinal (Abdomen): Inspection/Auscultation: abdomen normal to inspection; abdomen not distended Percussion/Palpation: + abdomen tender (epigastric and RUQ) and abdomen soft; no guarding and abdomen not rigid Musculoskeletal: Extremities: no cyanosis and no clubbing Skin: normal turgor; no lesions Neurologic: Motor/Sensory: no tremor and no asterixis Psychiatric: Orientation: alert and oriented x 3 Results & Data Vital Signs (Past 12 Hours) Vital Signs Temp Pulse Pulse Resp BP Pulse Ox O2 Del Method 02/03/24 10:49 36.6 C 54 L 14 128/44 L 99 Room Air 02/03/24 08:00 Room Air 02/03/24 07:29 36.7 C 76 15 188/54 H 93 Room Air 02/03/24 07:00 71 02/03/24 04:13 36.9 C 73 18 162/55 H 93 Room Air 02/02/24 23:22 36.9 C 74 18 169/57 H 93 Room Air Laboratory Results Laboratory Results - last 24 hr 02/03/24 05:29 WBC 5.87 RBC 2.82 L Hgb 8.5 L Hct 26.9 L MCV 95.4 MCH 30.1 MCHC 31.6 L RDW Std Deviation 57.5 H RDW Coeff of Geeta 16.7 H Plt Count 179 MPV 12.5 H Sodium 138 Potassium 3.5 Chloride 105 Carbon Dioxide 26 Anion Gap 7 BUN 19 Creatinine 1.36 H Est Cr Clr Drug Dosing 35.1 Est GFR ( Amer) 44.3 Est GFR (Non-Af Amer) 38.2 BUN/Creatinine Ratio 14.0 Glucose 93 Calcium 8.9 PG Care Time/CCT Total # of Minutes Spent Total Time Spent with Patient: Total time spent is greater than 50% in coordination of care (as documented) at patient's floor/unit and/or counseling patient: Coding Level of Care Code 09308 SUB INP/OBS CARE 3/50MIN Diagnoses Resistant hypertension I1A.0 LUCAS (acute kidney injury) N17.9 Bilateral ureteral calculi N20.1
[2024-02-03] MEDS: POTASSIUM CHLORIDE CRTAB 20 MEQ TABCR PO STA (12:01)
--- NOTE | 2024-02-03 12:54 | Hospitalist Progress Note ---
Date of Service February 03, 2024 Assessment & Plan (1) Bilateral ureteral calculi: (2) Nausea & vomiting: (3) Abdominal pain: (4) Elevated troponin: (5) CKD (chronic kidney disease) stage 4, GFR 15-29 ml/min: (6) HTN (hypertension): (7) Coronary artery disease: (8) Hyperlipidemia: (9) Anemia: (10) Chronic back pain: (11) Left hip pain: (12) Hematoma of left hip: (13) Status post left hip replacement: (14) Gout: (15) Depression: (16) Insomnia: Plan Radha Hare is a 73y/oF with PMHx significant for dyslipidemia, idiopathic chronic gout of multiple sites without tophus, allergic rhinitis, HTN, CAD, chronic HFpEF, TIA, hx of LUCAS 12/2023 multiple gastric ulcers, vitamin B12 deficiency, CKD stage III, osteoarthritis, depression who presented to the ED for evaluation of nausea and vomiting, abdominal pain x 1 week. Bilateral ureteral calculi Atrophic right kidney Presented with nausea and vomiting, abdominal pain x [address] abd/pelvis on admission noting calculi, post op hematomas/seromas UA was not suggestive of infection, no reflex urine Cx Urology consulted, appreciate recs -Patient with bilateral obstructing stones with significant obstruction on the right and atrophic appearing right kidney. -s/p bilateral stent placement on January 22 -Quintero catheter present - will do void trial prior to discharge. - Will arrange outpatient follow-up for stone and stent management. 01/27- episodes of N/V once more. CT abd pelvis repeated, no acute cause. Stable at this time Intractable N/V Abdominal Pain GI upset GI consulted, appreciate recs -s/p EGD - noting small hiatal hernia otherwise unremarkable -Per GI, gastroparesis diet with prn Reglan Antiemetics as needed Improving Resistant HTN Pt with known History Follows with Nephrology Original regimen of amlodipine 10, coreg 25mg BID, hydralazine 50mg TID, spironolactone 25mg. Coreg was switched to labetalol 100mg BID IV hydralazine 5mg prn Echo with EF 55-60%, mild LVH and Grade 1 diastolic dysfunction Nephrology consulted on 01/27 for further recs -renal US to rule out progressing renal artery stenosis - 1. Limited exam as above with nonvisualization of the right renal artery. 2. No definite evidence of renal arterial stenosis on this limited exam. 3. Atrophic right kidney redemonstrated. -spironolactone increased to 50mg daily -started on losartan 25mg daily -close vascular followup for renal artery stenosis 01/29- started on losartan 25mg daily. 01/30- nephrology monitoring BP, avoiding aggressive titration of meds. BP improved but still significantly elevated 01/31- slow titration 02/01- now with LUCAS, BP improving, per Neprhology monitoring to determine if diuretics need to be discontinued 02/02 - Suggest continuing amlodipine 10 mg daily, hydralazine 25 mg TID, labetalol 100 mg daily, and losartan 25 mg daily as Rx for now. In the future, we may be able to titrate losartan and wean hydralazine. Prolonged QTC EKG on admission noting prolonged qtc at 600 Repeat EKGs noting improvement from 600-->534--->493 avoid qtc prolonging agents Obstructive CAD Hx of STEMI s/p pLAD stent SMA stenosis s/p stent Continue DAPT Chronic Heart Failure with preserved EF LVEF 54% Echo with EF 55-60%, mild LVH and Grade 1 diastolic dysfunction chronic anemia Iron Deficiency Anemia Acute Blood Loss Anemia baseline ~8,on iron supplementation s/p 1U pRBC transfusion on 01/25 Stable LUCAS on CKD IV follows with nephrology Dr Clark avoid nephrotoxic agents Currently improved Left hip hematoma Chronic pain s/p left hip arthroplasty 09/2023 chronic hematoma, slow resolution still with notable discomfort/weakness hgb stable PT/OT HLD continue statin Hypophosphatemia Replete as needed Hypomagnesemia Replete as needed Demand ischemia Stable, doubt ACS DVT Prophylaxis: SCDs Code Status: Full Code Diet: HH Dispo: PT recommending return home Admission and Anticipated Discharge Date Admission Date: January 22, 2024 Subjective Pt seen in follow up s/p ureteral stents placements Currently sitting up in chair in NAD Denies any fever, chills, chest pain, shortness of breath, or abd. pain. Reports one episode of vomiting earlier today, otherwise says she feels well and we discussed possible DC tmrw. She still has a Quintero cath., discussed w/ urology and will plan to remove Quintero. Nephrology following, BP much improved on current med regimen Review of Systems Review of Systems: All systems reviewed & are unremarkable except as noted in Subjective Physical Exam Physical Exam: General: Alert, oriented. No acute distress HEENT: NC/AT CV: RRR Resp: Breath sounds clear bilaterally, no increased effort of breathing Abdomen: Soft, nontender, nondistended. + bowel sounds Extremities: No edema in lower extremities bilaterally. Neuro: alert , oriented, no facial asymmetry, speech fluent, answers appropriately, moves extremities Psych: Appropriate mood and affect Skin: No noted rashes or bruises Results & Data Results & Data Vital Signs (Past 12 Hours) Vital Signs Temp Pulse Pulse Resp BP Pulse Ox O2 Del Method 02/03/24 10:49 36.6 C 54 L 14 128/44 L 99 Room Air 02/03/24 08:00 Room Air 02/03/24 07:29 36.7 C 76 15 188/54 H 93 Room Air 02/03/24 07:00 71 02/03/24 04:13 36.9 C 73 18 162/55 H 93 Room Air Laboratory Results 02/03/24 Range/Units 05:29 WBC 5.87 (4.8-10.8) K/ul RBC 2.82 L (4.20-5.40) M/uL Hgb 8.5 L (12.0-16.0) g/dl Hct 26.9 L (37.0-47.0) % MCV 95.4 (80.0-100.0) fL MCH 30.1 (25.0-34.0) pg MCHC 31.6 L (32.0-36.0) g/dL RDW Std Deviation 57.5 H (36.4-46.3) fL RDW Coeff of Geeta 16.7 H (11.5-14.5) % Plt Count 179 (130-400) K/uL MPV 12.5 H (9.4-12.4) fL Sodium 138 (136-145) mmol/L Potassium 3.5 (3.5-5.1) mmol/L Chloride 105 (98-107) mmol/L Carbon Dioxide 26 (21-32) mmol/L Anion Gap 7 (3-11) BUN 19 (6-23) mg/dl Creatinine 1.36 H (0.6-1.2) mg/dl Est Cr Clr Drug Dosing 35.1 ml/min Est GFR ( Amer) 44.3 ml/min Est GFR (Non-Af Amer) 38.2 ml/min BUN/Creatinine Ratio 14.0 (10-20) Glucose 93 (70-99(Fasting)) mg/dl Calcium 8.9 (8.6-10.3) mg/dl Medications Administered Current Inpatient Medications Acetaminophen (Acetaminophen 325 Mg Tab) 650 mg PO Q4H PRN PRN Reason: pain/fever Stop: 02/21/24 17:00 Last Admin: 01/31/24 20:18 Dose: 650 mg Hydrocodone Bitart/Acetaminophen (Hydrocodone/Acetaminophen 7.5/325mg Tab) 1 tab PO TID PRN PRN Reason: Chronic back pain Stop: 02/05/24 17:11 Last Admin: 02/03/24 08:21 Dose: 1 tab Al Hydrox/Mg Hydrox/Simethicone (Aluminum/Magnesium Susp 30 Ml Udc) 30 ml PO Q6H PRN PRN Reason: Dyspepsia Stop: 02/21/24 17:00 Allopurinol (Allopurinol 300 Mg Tab) 300 mg PO DAILY JUDITH Stop: 02/22/24 08:59 Last Admin: 02/03/24 08:16 Dose: 300 mg Amlodipine Besylate (Amlodipine Besylate 5 Mg Tab) 10 mg PO DAILY JUDITH Stop: 02/28/24 08:59 Last Admin: 02/03/24 08:16 Dose: 10 mg Aspirin (Aspirin 81 Mg Chew) 81 mg PO DAILY JUDITH Stop: 02/22/24 08:59 Last Admin: 02/03/24 08:16 Dose: 81 mg Atorvastatin Calcium (Atorvastatin 40 Mg Tab) 80 mg PO DAILY JUDITH Stop: 02/22/24 08:59 Last Admin: 02/03/24 08:16 Dose: 80 mg Carvedilol (Carvedilol 25 Mg Tab) 25 mg PO BID JUDITH Stop: 02/21/24 20:59 Last Admin: 01/28/24 20:34 Dose: 25 mg Clopidogrel Bisulfate (Clopidogrel Bisulfate 75 Mg Tab) 75 mg PO DAILY JUDITH Stop: 02/22/24 08:59 Last Admin: 02/03/24 08:16 Dose: 75 mg Ferrous Sulfate (Ferrous Sulfate 325 Mg Tab) 325 mg PO DAILY JUDITH Stop: 02/22/24 08:59 Last Admin: 02/03/24 08:15 Dose: 325 mg Gabapentin (Gabapentin 300 Mg Cap) 300 mg PO DAILY [facility] Stop: 02/22/24 08:59 Last Admin: 02/03/24 08:16 Dose: 300 mg Hydralazine HCl (Hydralazine Tab 50 Mg Tab) 50 mg PO TID [facility] Stop: 02/21/24 20:59 Last Admin: 02/03/24 08:16 Dose: 50 mg Hydralazine HCl (Hydralazine Hcl 20 Mg/Ml Vial) 5 mg IV Q6H PRN PRN Reason: SBP>160 Stop: 02/27/24 13:19 Last Admin: 01/29/24 22:59 Dose: 5 mg Hydrochlorothiazide (Hydrochlorothiazide 25 Mg Tab) 25 mg PO QAM [facility] Stop: 02/27/24 15:44 Last Admin: 02/02/24 07:49 Dose: 25 mg Hydromorphone HCl (Hydromorphone Inj 0.5 Mg/0.5 Ml Syr) 0.25 mg IV Q6H PRN PRN Reason: Severe Pain (Scale 7, 8, 9,10) Stop: 02/05/24 17:17 Last Admin: 01/25/24 22:47 Dose: 0.25 mg Promethazine HCl 6.25 mg/ (Sodium Chloride) 50.25 mls @ 201 mls/hr IV Q6H PRN PRN Reason: Nausea And Vomiting Stop: 02/21/24 17:41 Last Infusion: 01/30/24 10:50 Dose: Infused Labetalol HCl (Labetalol Hcl 100 Mg Tab) 100 mg PO BID [facility] Stop: 02/28/24 05:39 Last Admin: 02/03/24 08:16 Dose: 100 mg Losartan Potassium (Losartan Potassium 25 Mg Tab) 25 mg PO QAM [facility] Stop: 02/29/24 11:29 Last Admin: 02/03/24 08:15 Dose: 25 mg Magnesium Hydroxide (Magnesium Hydroxide Susp 30 Ml Udc) 30 ml PO Q6H PRN PRN Reason: Constipation Stop: 02/21/24 17:00 Magnesium Oxide (Magnesium Oxide 400 Mg Tab) 400 mg PO BID [facility] Stop: 02/28/24 20:59 Last Admin: 02/03/24 08:16 Dose: 400 mg Metoclopramide HCl (Metoclopramide Hcl Inj 5 Mg/Ml 2 Ml Vial) 10 mg IV Q6H PRN PRN Reason: Nausea Stop: 03/02/24 15:26 Ondansetron HCl (Ondansetron Inj 2 Mg/Ml 2 Ml Vial) 4 mg IV Q6H PRN PRN Reason: Nausea And Vomiting Stop: 02/29/24 12:38 Last Admin: 02/03/24 09:20 Dose: 4 mg Pantoprazole Sodium (Pantoprazole 40 Mg Tab) 40 mg PO DAILY [facility] Stop: 02/22/24 08:59 Last Admin: 02/03/24 08:17 Dose: 40 mg Polyethylene Glycol (Polyethylene (Miralax) 17 Gm Pack) 17 gm PO DAILY [facility] Stop: 02/22/24 08:59 Last Admin: 02/03/24 08:15 Dose: 17 gm Spironolactone (Spironolactone 25 Mg Tab) 50 mg PO DAILY [facility] Stop: 02/29/24 08:59 Last Admin: 02/02/24 07:49 Dose: 50 mg Trazodone HCl (Trazodone Hcl 100 Mg Tab) 100 mg PO HS [facility] Stop: 02/21/24 20:59 Last Admin: 02/02/24 21:50 Dose: 100 mg (2) Nausea & vomiting Vomiting type: unspecified Qualified Code(s): R11.2 - Nausea with vomiting, unspecified (3) Abdominal pain Abdominal location: unspecified location Qualified Code(s): R10.9 - Unspecified abdominal pain (6) HTN (hypertension) Hypertension type: unspecified Qualified Code(s): I10 - Essential (primary) hypertension (7) Coronary artery disease Coronary Disease-Associated Artery/Lesion type: unspecified vessel or lesion type [place] vs. transplanted heart: [place] heart Associated angina: unspecified whether angina present Qualified Code(s): I25.10 - Atherosclerotic heart disease of [place] coronary artery without angina pectoris (8) Hyperlipidemia Hyperlipidemia type: unspecified Qualified Code(s): E78.5 - Hyperlipidemia, unspecified (9) Anemia Anemia type: iron deficiency Iron deficiency anemia type: unspecified iron deficiency Qualified Code(s): D50.9 - Iron deficiency anemia, unspecified (10) Chronic back pain Back pain location: back pain in unspecified location Back pain laterality: unspecified Qualified Code(s): M54.9 - Dorsalgia, unspecified; G89.29 - Other chronic pain (12) Hematoma of left hip Encounter type: sequela Qualified Code(s): S70.02XS - Contusion of left hip, sequela (14) Gout Gout site: multiple sites Gout etiology: unspecified cause Chronicity: chronic Qualified Code(s): M1A.09X0 - Idiopathic chronic gout, multiple sites, without tophus (tophi) (15) Depression Depression Type: unspecified Qualified Code(s): F32.A - Depression, unspecified (16) Insomnia Insomnia type: unspecified Qualified Code(s): G47.00 - Insomnia, unspecified
[2024-02-04 08:34] LABS: Hematocrit (blood only) 27.5 % (37.0-47.0); Hemoglobin 8.5 g/dl (12.0-16.0); Mean Corpuscular Hemoglobin 29.5 pg (25.0-34.0); Mean Corpuscular Hgb Conc 30.9 g/dL (32.0-36.0); Mean Corpuscular Volume 95.5 fL (80.0-100.0); Mean Platelet Volume 12.1 fL (9.4-12.4); Platelet Count 176 K/uL (130-400); RDW Coefficient of Variation 16.6 % (11.5-14.5); RDW Standard Deviation 58.6 fL (36.4-46.3); Red Blood Count 2.88 M/uL (4.20-5.40)
[2024-02-04 08:51] LABS: BUN Creatinine Ratio 13.9 (10-20); Creatinine Clr Calc Pharmacy 34.9 ml/min; Est GFR (African American) 43.9 ml/min; Est GFR (Non-African American) 37.9 ml/min; Magnesium 1.6 mg/dl (1.7-2.4); Phosphorus 3.5 mg/dl (2.5-4.9); Potassium 3.7 mmol/L (3.5-5.1)
--- NOTE | 2024-02-04 10:29 | Nephrology Progress Note ---
Date of Service February 04, 2024 Assessment & Plan (1) Resistant hypertension: Plan: Volume status acceptable. Tolerating current therapy. BP controlled. Creatinine stable at 1.3-1.4 mg/dL. Current regimen amlodipine 10 mg, losartan 25 mg, hydralazine 25 mg TID, and labetalol 100 mg BID. Appears to be tolerating current therapy well. Radha has known cerebrovascular disease and carotid stenosis s/p CEA. She has not tolerated BP <130 mmHg systolic due to presyncope in the past. Her guide escort established a reasonable SBP goal of 140-150 mmHg. (2) LUCAS (acute kidney injury): Plan: CKD with known atrophic R kidney.Electrolytes acceptable. Potassium and magnesium replacement provided this AM. Metabolic profile should be repeated within 1 week of hospital discharge. Volume status euvolemic. Radha has a notably history of multiple episodes of LUCAS. She has significant calcific arthrosclerotic disease with suspected bilateral renal artery stenosis on MRA in 2019. Renal duplex updated this admission was limited with low quality. Elevated peak velocity was not appreciated in the left renal artery. However, close outpatient follow up with vascular is encouraged. Angiography may be considered for definitive diagnosis in the future. Follow up with Dr. Clark within 2 weeks of discharge. (3) Bilateral ureteral calculi: Plan: s/p cystoscopy with bilateral retrograde pyelogram and bilateral ureteral stent insertion on January 22. Right ureteroscopy with laser lithotripsy and basket stone extraction performed at that time. Management per urology. Admission and Anticipated Discharge Date Admission Date: January 22, 2024 Subjective No acute events overnight. Radha feels well. No fluid retention or edema. She hopes to be discharged home today. Review of Systems Review of Systems: All systems reviewed & are unremarkable except as noted in HPI & below Physical Exam Constitutional: well developed; no acute distress Eyes: + anicteric sclerae; no corneal abnormal ity ENMT: Mouth: no oral mucosal abnormality and oral mucous membranes not dry Neck: normal visual inspection and trachea midline Respiratory: normal respiratory effort Auscultation: lungs clear to auscultation bilaterally Cardiovascular: Rate/Rhythm: regular rate Heart Sounds: normal S1 and normal S2 Extremities: no edema Musculoskeletal: Extremities: no cyanosis and no clubbing Skin: normal turgor; no lesions Neurologic: Motor/Sensory: no tremor and no asterixis Psychiatric: Orientation: alert and oriented x 3 Results & Data Vital Signs (Past 12 Hours) Vital Signs Temp Pulse Pulse Resp BP Pulse Ox O2 Del Method 02/04/24 07:32 36.7 C 69 18 172/56 H 90 Room Air 02/04/24 07:31 69 02/04/24 03:08 36.9 C 73 16 171/50 H 94 Room Air 02/03/24 23:00 36.9 C 69 16 165/49 H 91 Room Air Laboratory Results Laboratory Results - last 24 hr 02/04/24 08:13 WBC 6.20 RBC 2.88 L Hgb 8.5 L Hct 27.5 L MCV 95.5 MCH 29.5 MCHC 30.9 L RDW Std Deviation 58.6 H RDW Coeff of Geeta 16.6 H Plt Count 176 MPV 12.1 Sodium 137 Potassium 3.7 Chloride 105 Carbon Dioxide 26 Anion Gap 6 BUN 19 Creatinine 1.37 H Est Cr Clr Drug Dosing 34.9 Est GFR ( Amer) 43.9 Est GFR (Non-Af Amer) 37.9 BUN/Creatinine Ratio 13.9 Glucose 101 H Calcium 9.0 Phosphorus 3.5 Magnesium 1.6 L PG Care Time/CCT Total # of Minutes Spent Total Time Spent with Patient: Total time spent is greater than 50% in coordination of care (as documented) at patient's floor/unit and/or counseling patient: Coding Level of Care Code 80837 SUB INP/OBS CARE 3/50MIN Diagnoses Resistant hypertension I1A.0 LUCAS (acute kidney injury) N17.9 Bilateral ureteral calculi N20.1
[2024-02-04] MEDS: MAGNESIUM SULFATE / D5W 1 GM/100 ML BAG IV ONE (10:44)
--- NOTE | 2024-02-04 10:45 | Discharge Summary ---
Date of Service February 04, 2024 Admission HPI Per Admitting Provider Radha Hare is a 73y/o F with PMHx of dyslipidemia, idiopathic chronic gout of multiple sites without tophus, allergic rhinitis, HTN, CAD, chronic HFpEF, TIA, hx of LUCAS [12/2023] multiple gastric ulcers, vitamin B12 deficiency, CKD stage III, osteoarthritis, depression and other problems listed below who presented to the ED today for evaluation of nausea and vomiting, abdominal pain x 1 week. History obtained from patient, and associated ED/previous hospitalization/PCP/specialist records. Of note, patient presented to [facility] on 12/29/2023 and was ultimately transferred to [facility] for treatment of NSTEMI. Patient underwent successful PCI w/ REZA placement to the proximal LAD. Patient most recently followed up with [facility] [Dr. Obie Greer] on 01/05/2024. According to his documentation, patient is used to having blood pressures in the 160s/170s and higher. At that time, he determined that she was not ready for cardiac rehabilitation due to residual ongoing weakness. Patient to remain on aspirin for life and Plavix for at least a year unless she has bleeding that would subsequently reduce the duration of Plavix per his recommendation. She is supposedly scheduled to see Melodie, a [employer] in that facility/institute, in the next upcoming weeks. Patient was educated on a low-sodium diet and daily weights given her heart failure history during that visit as well. Patient does follow with [facility] [Dr. Clark]. Most recent visit 01/04/2024. Appears her CKD has advanced to stage IV. According to his documentation, baseline creatinine 1.4-1.7 with EGFR 29 cc/min. She had a renal ultrasound done 06/2022 that revealed right kidney 8.7 cm ( atrophic) and left kidney 10.8 cm. * Appears target SBP 140-150 due to carotid vascular disease according to his note. It is documented that SBP<130 has been associated with near syncope for this patient. * She is currently on carvedilol, amlodipine, hydralazine and spironolactone. Is taking iron supplementation daily. On ASA, Plavix therapy. Patient seen at bedside. Patient reports some generalized weakness since her cardiac procedure last month. She has been having some ongoing abdominal discomfort x 6 months. Patient reports new-onset of abdominal pain and N/V x 1 week. She denies any recent sick contacts. States she has been at home mostly for the past few months when not hospitalized or attending appointments, and her sister is the primary cdl driver for her. She lives in a house by herself, and uses a walker at baseline and has a stair glide in place for tackling steps. Denies any recent falls or head trauma. She has not taken anything at home for the nausea. She is on chronic opioid therapy for chronic back pain, but reports not taking her hydrocodone-acetaminophen in the past 2 to 3 days. Patient states that she typically took this medication every couple of days beforehand, is NOT taking this medication on a daily basis. Denies any issues w/ constipation. States her bowels are "very dark" due to iron supplementation therapy. States the weakness has gotten progressively worse over time. Was nauseous on arrival to the ED and received a few doses of IV Zofran, but is currently denying any nausea. States that she has a lot of pain in her left hip s/p total left hip arthroplasty [09/25/2023 w/ Dr. Jamie lemons @ [facility]] due to an ongoing hematoma in that region, which she states has gotten progressively worse and more painful. Patient reports she has been seen for this hematoma, but denies any intervention at this point. Patient reports having multiple kidney stones in the past. Currently denies any flank pain. Has not had any recent fevers or chills. She is reporting generalized abdominal pain, but mentions the pain in her left lower abdominal region is worse due to the ongoing spreading hematoma surrounding her left hip. Patient reports very poor appetite, but states she is hydrating appropriately. Drinking approximately 2 larger bottles of water per day. Has been trying to consume Ensure drinks intermittently. Denies any hematemesis, urinary or bowel habit changes. No chest pain or SOB. States that she vomits anytime she tries to eat. She did take her medications this morning, and was able to keep them down. No concerns of dysphagia. No dizziness/lightheadedness upon standing. She reports not sleeping well recently, wakes up a lot in the middle night due to rolling over on her left hip and experiencing pain from doing so. States that she constantly "dozes off" throughout the day. Currently rates abdominal pain 5/10. Significantly more pain with movement, some comfort at rest. Vitals on admission: BP 166/56, HR 68, RR 18, Temp 36.8oC and SpO2 95% on RA. --> Patient does NOT use any supplemental oxygen therapy at home. RBC 2.95, Hgb 8.7 and Hct 28.2 on admission. Appears baseline hemoglobin ~8 per chart review. No significant, acute electrolyte abnormalities. Sodium only slightly down at 13 5. Initial troponin 24.3. Creatinine 1.32 on admission, appears baseline creatinine ~1.4-1.7 as above. --> No evidence of an LUCAS at this time. GFR 39.6, history of CKD stage III as per above. Glucose only slightly elevated at 102 on admission. UA rather unremarkable. There is presence of trace protein, ketones and leukocyte esterase. However, NO urine bacteria seen. CT of abdomen/pelvis revealed the following: * 6 mm calculus in the distal right ureter and a 10 mm calculus in the distal left ureter. NO upstream hydroureteronephrosis is identified in either kidney. * Asymmetric soft tissue edema identified in the left upper thigh with complex fluid collections overlying the left gluteal musculature and around the posterior aspect of the proximal femur. these findings may represent postoperative fluid collection such as seroma/hematomas. Follow-up with her orthopedic surgeon is recommended. * Asymmetric cortical atrophy of the right kidney as compared to the left is similar to previous imaging studies and per above. * Cholelithiasis, no evidence of cholecystitis. Admission Exam Per Admitting Provider General Appearance: Laying down in bed, alert, appears slightly dry overall. No acute distress, chronically-ill appearing, conversing appropriately. Head: Normocephalic, atraumatic. Eyes: Normal inspection, PERRL, conjunctivae normal, anicteric sclerae. ENT: External ear and nose normal, mucous membranes appear somewhat dry. Neck: Normal visual inspection, trachea midline, no thyromegaly. Respiratory: Normal respiratory effort, lungs clear to auscultation, no wheeze, rales, rhonchi. No accessory muscle use. Cardiovascular: Regular rate, rhythm, no murmur, normal peripheral pulses, no BLE edema. Vessels: No JVD. Chest: Normal inspection of chest. Abdomen/GI: Normal bowel sounds, quite tender to palpation in all quadrants (but especially LLQ). Extremities/Musculoskeletal: Quite extensive hematoma in the left hip region, very bruised/swollen and extremely tender to palpation. No surrounding erythema or fluctuance. Neurologic: PERRL, EOMI, accommodation nl, no face palsy, no dysarthria, CN's II-XI grossly intact bilaterally. Psychiatric: A+Ox3, euthymic affect. Skin: No rashes, normal color, warm/dry. Hematoma present overlying left hip, as per above. Principal Diagnosis Bilateral ureteral calculi s/p ureteral stents placement LUCAS on CKD Nausea/ vomiting secondary to gastroparesis Uncontrolled hypertension Discharge Exam General: Alert, oriented. No acute distress HEENT: NC/AT CV: RRR Resp: Breath sounds clear bilaterally, no increased effort of breathing Abdomen: Soft, nontender, nondistended. + bowel sounds Extremities: No edema in lower extremities bilaterally. Neuro: alert , oriented, no facial asymmetry, speech fluent, answers appropriately, moves extremities Psych: Appropriate mood and affect Skin: No noted rashes or bruises Discharge Data Allergies Allergy/AdvReac Type Severity Reaction Status Date / Time oxycodone AdvReac Severe syncope, Verified 01/22/24 16:57 low bp nickel AdvReac Intermediate rash and Verified 01/22/24 16:57 skin turns green Consultations 01/22/24 15:17 ED Decision to Admit Stat 01/22/24 15:44 Consult Urology Routine 01/28/24 15:37 Consult Nephrology Routine 01/30/24 10:54 Consult Gastroenterology Routine Procedures Performed Operation Date: 02/01/24 16:45 Actual Procedures p Esophagogastroduodenoscopy - Mello Lozoya MD Ordered Studies 01/22/24 13:59 CT abd pelvis IV con only Stat FINDINGS: Lung bases: The heart is normal in size and without pericardial effusion. There are coronary artery calcifications. A small hiatal hernia is noted. The lung bases are clear noting mild bibasilar scarring/atelectasis. Liver: The contrast-enhanced liver is normal in size, contour, and attenuation. There is no intrahepatic biliary ductal dilatation. The hepatic veins and portal veins are patent. Gallbladder: There are calcified gallstones with no CT evidence of acute cholecystitis. Spleen: Normal in size and attenuation. Pancreas: Unremarkable. Adrenal glands: Unremarkable. Kidneys: There is asymmetric cortical atrophy of the right kidney as compared to the left. No hydronephrosis is seen. There is a 6 mm calculus in the distal right ureter just above the vesicoureteral junction seen on image #252. A 10 mm calculus is noted in the distal left ureter on image #262. No upstream hydroureter is seen bilaterally. There is heterogeneous diminished enhancement of the right kidney as compared to the left. Abdominal vasculature: The abdominal aorta is normal in course and caliber noting advanced atherosclerotic calcification. A stent is noted in the superior mesenteric artery. Bowel: There is no bowel obstruction. The appendix is well-visualized and normal. Peritoneum: There is no intraperitoneal free air or abdominal ascites. Lymphadenopathy: None. Pelvic viscera: Evaluation of the pelvis is degraded by streak artifact from a left hip arthroplasty. The bladder is decompressed and grossly unremarkable. Uterus and adnexa are normal as visualized. Skeletal structures: The skeletal structures are osteopenic. Advanced spondylotic and postsurgical change is noted in the lumbar spine. A left hip arthroplasty is in place No lytic or blastic lesions are seen. Sclerotic changes noted in the sacroiliac joints. Soft tissues: There is soft tissue edema identified in the left upper thigh. There is a thick-walled pocket of complex fluid seen around the posterior left femoral shaft seen on axial image #314. This measures approximately 7 x 6 x 3.5 cm. There is a similar-appearing fluid collection in the subcutaneous soft tissues seen more superiorly overlying the left gluteal musculature on image #242. This measures approximately 6 x 6 x 5 cm. These collections closely approximated each other and may communicate. There is asymmetric atrophy of the left gluteal musculature as compared to the right. IMPRESSION: 1. There is a 6 mm calculus in the distal right ureter and a 10 mm calculus in the distal left ureter. No upstream hydroureteronephrosis is identified in either kidney. 2. Cholelithiasis. 3. There is asymmetric soft tissue edema identified in the left upper thigh with complex fluid collections overlying the left gluteal musculature and around the posterior aspect of the proximal femur. These may represent postoperative fluid collections such as seroma/hematomas. The sterility of this fluid cannot be assessed by imaging. Follow-up with patient's orthopedic surgeon is recommended. 4. Asymmetric cortical atrophy of the right kidney as compared to the left is similar to previous. 5. Additional findings as above. 06/08/24 07:30 FL retrograde includes kub Routine 01/28/24 13:22 CT Abd and Pelvis [CT abd pelvis IV con only] Urgent FINDINGS: A small right pleural effusion has developed since CT of 05/23/2024. Body wall edema is present. There is no pneumatosis, free air or portal venous gas. There is no biliary or pancreatic ductal dilatation. Gallstones within the gallbladder are present. The gallbladder is not distended. There is no pericholecystic infiltration. Spleen, adrenal glands and pancreas are unremarkable. Right renal atrophy is again noted. Bilateral ureteral stents are in place. There is no hydronephrosis. A 9 mm distal left ureteral calculus has decreased in size since prior exam. The right ureteral calculus shown on prior CT is no longer identified. Quintero balloon within the bladder is noted. There is gas within the bladder. The bladder is collapsed. There is no evidence for a bowel obstruction. There is mild presacral stranding. Apparent mild rectal wall thickening is likely due to underdistention. Left hip arthroplasty is intact. There is no periprosthetic fracture. A fluid collection along the proximal left femur is unchanged in size since CT of January 22, 2024. An additional 6.4 cm fluid collection within the lateral left thigh is also similar to prior exam. This contains hyperdense material. No new fluid collections are present. There are postoperative findings within the spine. No acute fractures are identified. IMPRESSION: 1. Bilateral ureteral stents in place. No hydronephrosis. Decrease in size of a 9 mm distal left ureteral calculus. No right ureteral calculi or fragments. 2. No bowel obstruction. No bowel wall thickening. 3. Cholelithiasis. No evidence for acute cholecystitis. 4. Small right pleural effusion. Body wall edema suggestive of anasarca. 5. Intact total left hip arthroplasty. No periprosthetic fracture. No signifi cant change in associated fluid collections since prior exam. These are likely postoperative and favor hematomas. 01/29/24 12:38 US doppler renal [US duplex renal artery] Routine FINDINGS: Normal flow within the abdominal aorta with peak systolic velocities measuring up to 305 cm/s. Extensive atherosclerosis. The study is limited secondary to motion artifact and patient body habitus. Atrophic right kidney redemonstrated measuring 8 cm in length with diffuse cortical thinning and increased parenchymal echogenicity. Nonvisualization of the right renal artery. Patent right renal vein. The left kidney measures 10.5 cm in length with patent renal vein. Resistive indices within the left renal artery measure up to 0.1 proximally. Suboptimal visualization of the renal artery with peak systolic velocities measuring up to 116 cm/s. IMPRESSION: 1. Limited exam as above with nonvisualization of the right renal artery. 2. No definite evidence of renal arterial stenosis on this limited exam. 3. Atrophic right kidney redemonstrated. Hospital Course (1) Bilateral ureteral calculi: (2) Nausea & vomiting: (3) Abdominal pain: (4) Elevated troponin: (5) CKD (chronic kidney disease) stage 4, GFR 15-29 ml/min: (6) HTN (hypertension): (7) Coronary artery disease: (8) Hyperlipidemia: (9) Anemia: (10) Chronic back pain: (11) Left hip pain: (12) Hematoma of left hip: (13) Status post left hip replacement: (14) Gout: (15) Depression: (16) Insomnia: Plan Radha Hare is a 73y/oF with PMHx significant for dyslipidemia, idiopathic chronic gout of multiple sites without tophus, allergic rhinitis, HTN, CAD, chronic HFpEF, TIA, hx of LUCAS 12/2023 multiple gastric ulcers, vitamin B12 deficiency, CKD stage III, osteoarthritis, depression who presented to the ED for evaluation of nausea and vomiting, abdominal pain x 1 week. Bilateral ureteral calculi Atrophic right kidney Presented with nausea and vomiting, abdominal pain x [address] abd/pelvis on admission noting calculi, post op hematomas/seromas UA was not suggestive of infection, no reflex urine Cx Urology consulted, appreciate recs -Patient with bilateral obstructing stones with significant obstruction on the right and atrophic appearing right kidney. -s/p bilateral stent placement on January 22 - Will arrange outpatient follow-up for stone and stent management. 01/27- episodes of N/V once more. CT abd pelvis repeated, no acute cause. Stable at this time Intractable N/V Abdominal Pain GI upset GI consulted, appreciate recs -s/p EGD - noting small hiatal hernia otherwise unremarkable -Per GI, gastroparesis diet with prn Reglan Antiemetics as needed Improving Resistant HTN Pt with known History Follows with Nephrology Original regimen of amlodipine 10, coreg 25mg BID, hydralazine 50mg TID, spironolactone 25mg. Coreg was switched to labetalol 100mg BID IV hydralazine 5mg prn Echo with EF 55-60%, mild LVH and Grade 1 diastolic dysfunction Nephrology consulted on 01/27 for further recs -renal US to rule out progressing renal artery stenosis - 1. Limited exam as above with nonvisualization of the right renal artery. 2. No definite evidence of renal arterial stenosis on this limited exam. 3. Atrophic right kidney redemonstrated. -started on losartan 25mg daily -close vascular followup for renal artery stenosis 02/01- now with LUCAS, BP improving, per Neprhology monitoring to determine if diuretics need to be discontinued 02/02 - Suggest continuing amlodipine 10 mg daily, hydralazine 25 mg TID, labetalol 100 mg bid, and losartan 25 mg daily as Rx for now. In the future, we may be able to titrate losartan and wean hydralazine. Prolonged QTC EKG on admission noting prolonged qtc at 600 Repeat EKGs noting improvement from 600-->534--->493 avoid qtc prolonging agents Obstructive CAD Hx of STEMI s/p pLAD stent SMA stenosis s/p stent Continue DAPT Chronic Heart Failure with preserved EF LVEF 54% Echo with EF 55-60%, mild LVH and Grade 1 diastolic dysfunction chronic anemia Iron Deficiency Anemia Acute Blood Loss Anemia baseline ~8,on iron supplementation s/p 1U pRBC transfusion on 01/25 Stable LUCAS on CKD IV follows with nephrology Dr Clark avoid nephrotoxic agents Currently improved Left hip hematoma Chronic pain s/p left hip arthroplasty 09/2023 chronic hematoma, slow resolution still with notable discomfort/weakness hgb stable PT/OT HLD continue statin Hypophosphatemia Replete as needed Hypomagnesemia Replete as needed Demand ischemia Stable, doubt ACS Total Time Total Time Spent Total Time Spent (In Minutes): 40 Discharge Plan Discharge Items Patient Disposition: Home - Self-Care Reason For Visit: RENAL CALCULI, ILLNESS (ABD PAIN, N/V) Discharge Diagnosis: Bilateral ureteral calculi s/p ureteral stents placement LUCAS on CKD Nausea/ vomiting secondary to gastroparesis Uncontrolled hypertension Activity: Per Instructions section Non-emergency contact: Primary Care Provider, Public Information Specialist and Spinning Supervisor Call non-emergency contact if: you have any medication questions and your symptoms worsen Follow-up/Referrals: Karl Howe, [Primary Care Provider] - Diet: Low Fiber and Low Fat Addtl Attending Provider Instructions: Follow up with your primary care doctor, clock repair technician, urologist, valve tester. You should be seen by your primary care physician within 1-2 weeks after hospital discharge. Stop taking carvedilol, and instead take labetalol 100 mg twice a day, and losartan 25 mg daily. Stop taking spironolactone for now. Continue taking amlodipine and hydralazine as prescribed. If you can , monitor your blood pressure at home and record your numbers. Discuss your numbers with your health care providers. Review instructions per your urologist below. Addtl Computer Forensic Specialist Provider Instructions: The urology office will contact you to arrange a follow-up visit. Please call the urology office at [phone] with any questions, concerns or need to reschedule appointments for any reason. We are happy to assist you. While you have a ureteral stent in place: Some discomfort is normal. Certain movements may trigger pain or a feeling that you need to urinate. You may also feel mild soreness or pressure before or during urination. Your urine may be slightly pink or red. This is due to bleeding caused by minor irritation from the stent. This may happen on and off while you have the stent, it is not harmful and is to be expected. Medication to help minimize discomfort or bladder spasms, or to prevent infection may be prescribed. Take this as directed. Drink plenty of fluids to help flush out your urinary tract. When to call [facility] at [phone]: Your urine contains heavy blood clots or you are unable to urinate You are constantly leaking urine Fever of 101F or higher, chills, nausea, or vomiting Your pain is not relieved with medication The end of the stent comes out of your urethra Pending Studies at Discharge: No Stand-Alone Forms: My [employer], Smoking Cessation Medications and DC Order Prescriptions: New labetalol 100 mg Tablet 100 mg PO BID Qty: 60 0RF losartan 25 mg Tablet 25 mg PO QAM Qty: 30 0RF Continued polyethylene glycol 3350 [Miralax] 17 gram powder in packet 17 g PO DAILY amlodipine 10 mg tablet 10 mg PO DAILY Qty: 90 3RF allopurinol 300 mg tablet 300 mg PO DAILY Qty: 90 3RF multivitamin Tablet 1 tab PO QAM Qty: 30 0RF clopidogrel 75 mg tablet 75 mg PO DAILY ferrous sulfate [FeroSul] 325 mg (65 mg iron) tablet 325 mg PO DAILY gabapentin 300 mg capsule 300 mg PO DAILY hydralazine 50 mg tablet 50 mg PO TID atorvastatin 80 mg tablet 80 mg PO DAILY hydrocodone-acetaminophen 7.5-325 mg tablet 1 tab PO TID PRN (Reason: Chronic back pain) nitroglycerin 0.4 mg tablet, sublingual 0.4 mg sublingual .Q5MIN PRN (Reason: Chest Pain) aspirin 81 mg tablet,chewable 81 mg PO DAILY citalopram 40 mg tablet 40 mg PO .QHS omeprazole 40 mg capsule,delayed release(DR/EC) 40 mg PO DAILY trazodone 100 mg tablet 100 mg PO .QHS Held spironolactone 25 mg tablet 25 mg PO DAILY Hold Instructions: Resume on 02/11/24. until discussed with your primary care doctor / clock repair technician Discontinued carvedilol 25 mg tablet 25 mg PO BID Discharge Orders: Discharge Order (Routine); Ordered 02/04/24 Ordered By: Venkatesh Beasley Admission Data Admit Date/Time: 01/22/24 15:24 Attending Provider: Venkatesh Beasley Admit Provider: Mattie Manrique Primary Care Provider: Karl Howe Other Providers: Mattie Manrique; Cindi Oreilly; Mello Lozoya
== END 2024-02-04 13:46 | disposition home or self-care (01) | DRG 660 ==
LOC: ED 12:27 → SUATTDRO 15:24 → 2W 15:24